=== PATIENT | female | born 1970 | race Caucasian/White ===

== ENCOUNTER → 2017-01-01 | Outpatient (CLI) | payer MEDICAID | LOC: M OUTALCOH 07:51 | PROVIDERS: ATTEND Psychiatry & Neurology Psychiatry | DX: Z13.9 Encounter for screening, unspecified (principal); F19.10 Other psychoactive substance abuse, uncomplicated ==

== ENCOUNTER → 2017-01-06 | Outpatient (RCR) | payer MEDICAID | LOC: M OUTALCOH 14:43 | PROVIDERS: ATTEND Psychiatry & Neurology Psychiatry | DX: F10.20 Alcohol dependence, uncomplicated (principal); F11.20 Opioid dependence, uncomplicated ==

== ENCOUNTER 2017-01-21 22:51 | Emergency (ER) | payer MEDICAID, OTHER ==
[~2017-01-21] VITALS: Ht 160 cm; Wt 68.2 kg
[2017-01-21] MEDS ORDERED: FLUC10TA PO (23:29)
[2017-01-21] MEDS ORDERED: TRAZ10TA GT (23:29)
[2017-01-21] MEDS ORDERED: NYST10CR EXT (23:29)
[2017-01-21] MEDS ORDERED: CELE20TA PO (23:29)
[2017-01-21] MEDS ORDERED: GABA-283 PO (23:29)
[2017-01-22] MEDS ORDERED: methylPREDNISolone INJ 125 MG/2 ML VIAL (J2930) IM ONE (05:45)
[2017-01-22] MEDS ORDERED: TRIAMCINOLONE ACET 0.1% CREAM 80 GM TOP ONE ×2 (05:45)
[2017-01-22] MEDS ORDERED: TRIAMCINOLONE ACET 0.1% CREAM 15 GM TOP ONE (05:45)
[2017-01-22] MEDS ORDERED: FLAG500T PO (06:44)
[2017-01-22] MEDS ORDERED: TRIA1CR80 TOP (06:47)
[2017-01-22 06:57] VITALS: BP 117/65
== END 2017-01-22 07:00 | disposition home or self-care (01) ==
LOC: M ED 23:50
DX: N76.2 Acute vulvitis (principal); N76.0 Acute vaginitis; F17.200 Nicotine dependence, unspecified, uncomplicated; Z90.79 Acquired absence of other genital organ(s); Z90.49 Acquired absence of other specified parts of digestive tract; Z79.899 Other long term (current) drug therapy; Z87.42 Personal history of other diseases of the female genital tract

== ENCOUNTER → 2017-02-05 | Outpatient (RCR) | payer MEDICAID ==
[~2017-02-05] MED LIST: CELE20TA PO; FLAG500T PO; FLUC10TA PO; GABA-283 PO; NYST10CR EXT; TRAZ10TA GT; TRIA1CR80 TOP
== END ==
LOC: M OUTALCOH 01-13 10:24
PROVIDERS: ATTEND Psychiatry & Neurology Psychiatry
DX: F10.20 Alcohol dependence, uncomplicated (principal); F11.20 Opioid dependence, uncomplicated

== ENCOUNTER → 2017-03-08 | Outpatient (RCR) | payer MEDICAID | LOC: M OUTALCOH 02-08 09:37 | PROVIDERS: ATTEND Psychiatry & Neurology Psychiatry | DX: F10.20 Alcohol dependence, uncomplicated (principal); F11.20 Opioid dependence, uncomplicated ==

== ENCOUNTER 2017-04-07 14:47 | Outpatient (RCR) | payer MEDICAID | END 2017-04-08 | LOC: M OUTALCOH 14:47 | PROVIDERS: ATTEND Psychiatry & Neurology Psychiatry | DX: F10.20 Alcohol dependence, uncomplicated (principal); F11.20 Opioid dependence, uncomplicated ==

== ENCOUNTER 2017-05-06 14:00 | Outpatient (RCR) | payer MEDICAID | END 2017-05-08 | LOC: M OUTALCOH 14:00 | PROVIDERS: ATTEND Psychiatry & Neurology Psychiatry | DX: F11.20 Opioid dependence, uncomplicated (principal); F10.20 Alcohol dependence, uncomplicated ==

== ENCOUNTER → 2017-06-21 | Outpatient (CLI) | payer OTHER ==
[2017-06-21 10:19] LABS: BASO % 0.5 % (0.0-1.0); EOS # 0.1 10^3/uL (0.0-0.50); EOS % 0.7 % (0.0-3.0); IMMATURE GRANULOCYTE % 0.3 % (0-0); LYMPH % 27.2 % (24.0-44.0); MEAN CORPUSCULAR HEMOGLOBIN 32.4 pg (27.0-33.0); MEAN CORPUSCULAR VOLUME 95.3 fl (80.0-96.0); MONO # 0.8 10^3/uL (0.0-0.8); MONO % 10.9 % (0.0-5.0); NEUTROPHILS # 4.5 10^3/uL (1.8-7.7); NEUTROPHILS % 60.4 % (36.0-66.0); PLATELET COUNT, AUTOMATED 234 10^3/uL (150-450); RED CELL DISTRIBUTION WIDTH 12.5 % (11.5-14.5); WHITE BLOOD COUNT 7.5 10^3/uL (4.0-10.0)
[2017-06-21 10:50] LABS: ALBUMIN 3.4 GM/DL (3.2-5.2); ALKALINE PHOSPHATASE 76 U/L (45-117); ALT/SGPT 188 U/L (12-78); ANION GAP 6 MEQ/L (8-16); AST/SGOT 70 U/L (7-37); BILIRUBIN,TOTAL 0.4 MG/DL (0.2-1.0); BLOOD UREA NITROGEN 11 MG/DL (7-18); CALCIUM LEVEL 8.7 MG/DL (8.5-10.1); CARBON DIOXIDE LEVEL 27 MEQ/L (21-32); CHLORIDE LEVEL 106 MEQ/L (98-107); CREATININE FOR GFR 0.43 MG/DL (0.55-1.02); GLOMERULAR FILTRATION RATE > 60.0 (>58); GLUCOSE, FASTING 93 MG/DL (70-105); POTASSIUM SERUM 4.4 MEQ/L (3.5-5.1); SODIUM LEVEL 139 MEQ/L (136-145); TOTAL PROTEIN 6.5 GM/DL (6.4-8.2)
== END ==
LOC: M LAB 09:45
PROVIDERS: ATTEND Nurse Practitioner Adult Health
DX: M54.31 Sciatica, right side (principal); F32.9 Major depressive disorder, single episode, unspecified; M51.9 Unspecified thoracic, thoracolumbar and lumbosacral intervertebral disc disorder; F11.20 Opioid dependence, uncomplicated

== ENCOUNTER → 2017-09-24 | Outpatient (REF) | payer OTHER | LOC: M LAB REF 14:43 | DX: R19.7 Diarrhea, unspecified (principal) ==

== ENCOUNTER → 2017-09-26 | Outpatient (REF) | payer OTHER | LOC: M LAB REF 09:13 | DX: J11.1 Influenza due to unidentified influenza virus with other respiratory manifestations (principal) | CPT/HCPCS: 87633 ==

== ENCOUNTER → 2017-10-20 | Outpatient (REF) | payer OTHER, MEDICAID ==
[2017-10-20 18:16] LABS: APPEARANCE, URINE CLEAR (CLEAR); BACTERIA, URINE AUTO 1+ (NEGATIVE); BILIRUBIN, URINE AUTO NEGATIVE (NEGATIVE); BLOOD, URINE BLOOD NEGATIVE (NEGATIVE); COLOR, URINE YELLOW (YELLOW); GLUCOSE, URINE (UA) AUTO NEGATIVE (NEGATIVE); KETONE, URINE AUTO NEGATIVE (NEGATIVE); LEUKOCYTE ESTERASE, URINE AUTO NEGATIVE (NEGATIVE); NITRITE, URINE AUTO NEGATIVE (NEGATIVE); PROTEIN, URINE AUTO NEGATIVE (NEGATIVE); RBC, URINE AUTO 0 /HPF (0-3); SPECIFIC GRAVITY URINE AUTO 1.008 (1.002-1.035); SQUAMOUS EPITHELIAL CELL UR AU 1 /HPF (0-6); UROBILINOGEN, URINE AUTO 0.2 mg/dL (0.0-2.0); WBC, URINE AUTO 0 /HPF (0-3)
== END ==
LOC: M SMT 17:03
DX: R35.0 Frequency of micturition (principal)
CPT/HCPCS: 81001

== ENCOUNTER → 2017-10-22 | Outpatient (REF) | payer OTHER, MEDICAID | LOC: M SMT 12:35 | DX: R35.0 Frequency of micturition (principal) | CPT/HCPCS: 87086 ==

== ENCOUNTER → 2017-11-12 | Outpatient (CLI) | payer MEDICAID | LOC: M PAIN 12:30 | DX: M46.1 Sacroiliitis, not elsewhere classified (principal); G89.29 Other chronic pain; M54.16 Radiculopathy, lumbar region; F10.21 Alcohol dependence, in remission; R51 Headache; G47.00 Insomnia, unspecified; F31.9 Bipolar disorder, unspecified; F41.9 Anxiety disorder, unspecified; Z79.899 Other long term (current) drug therapy; Z86.59 Personal history of other mental and behavioral disorders; Z87.891 Personal history of nicotine dependence | CPT/HCPCS: G0463 ==

== ENCOUNTER → 2017-11-23 | Outpatient (CLI) | payer MEDICAID | LOC: M EKG 09:20 | DX: F30.10 Manic episode without psychotic symptoms, unspecified (principal) | CPT/HCPCS: 93005 ==

== ENCOUNTER → 2017-12-28 | Outpatient (CLI) | payer MEDICAID | LOC: M PAIN 15:30 | DX: G89.29 Other chronic pain (principal); M51.16 Intervertebral disc disorders with radiculopathy, lumbar region; M54.5 Low back pain; M53.3 Sacrococcygeal disorders, not elsewhere classified; G47.00 Insomnia, unspecified; F31.9 Bipolar disorder, unspecified; F41.9 Anxiety disorder, unspecified; R51 Headache; Z79.899 Other long term (current) drug therapy; Z87.891 Personal history of nicotine dependence | CPT/HCPCS: G0463 ==

== ENCOUNTER → 2018-01-19 | Outpatient (CLI) | payer OTHER, MEDICAID | LOC: M PAIN 14:15 | DX: M51.16 Intervertebral disc disorders with radiculopathy, lumbar region (principal); M54.5 Low back pain; M53.3 Sacrococcygeal disorders, not elsewhere classified; F41.9 Anxiety disorder, unspecified; F32.9 Major depressive disorder, single episode, unspecified; R35.0 Frequency of micturition; Z79.899 Other long term (current) drug therapy; Z87.891 Personal history of nicotine dependence | CPT/HCPCS: G0463 ==

== ENCOUNTER → 2018-02-21 | Outpatient (REF) ==
[2018-02-23 08:58] LABS: RUBELLA IgG QUALITATIVE IMMUNE (IMMUNE)
[2018-02-23 12:01] LABS: RUBEOLA IgG ANTIBODY >300.0 AU/mL (Immune >29.9)
== END ==
LOC: M LAB 15:13
DX: Z02.89 Encounter for other administrative examinations (principal)

== ENCOUNTER → 2018-04-12 | Outpatient (CLI) | payer OTHER, MEDICAID | LOC: M PAIN 13:30 | DX: M51.16 Intervertebral disc disorders with radiculopathy, lumbar region (principal); M54.5 Low back pain; F10.21 Alcohol dependence, in remission; G47.00 Insomnia, unspecified; F31.9 Bipolar disorder, unspecified; F41.9 Anxiety disorder, unspecified; Z79.899 Other long term (current) drug therapy; Z86.59 Personal history of other mental and behavioral disorders; Z87.891 Personal history of nicotine dependence | CPT/HCPCS: G0463 ==

== ENCOUNTER → 2018-04-27 | Outpatient (CLI) | payer MEDICAID, OTHER ==
[2018-04-27 12:17] LABS: HEMATOCRIT 36.5 % (36.0-47.0); HEMOGLOBIN 12.7 g/dl (12.0-15.5); MEAN CORPUSCULAR HGB CONC 34.8 g/dl (32.0-36.5); MEAN CORPUSCULAR VOLUME 91.9 fl (80.0-96.0); PLATELET COUNT, AUTOMATED 228 10^3/uL (150-450); RED BLOOD COUNT 3.97 10^6/uL (4.00-5.40); RED CELL DISTRIBUTION WIDTH 12.4 % (11.5-14.5); WHITE BLOOD COUNT 6.1 10^3/uL (4.0-10.0)
[2018-04-27 13:24] LABS: ALBUMIN 3.8 GM/DL (3.2-5.2); ALBUMIN/GLOBULIN RATIO 1.36 (1.00-1.93); ALKALINE PHOSPHATASE 53 U/L (45-117); ALT/SGPT 22 U/L (12-78); ANION GAP 7 MEQ/L (8-16); AST/SGOT 12 U/L (7-37); BILIRUBIN,TOTAL 0.2 MG/DL (0.2-1.0); BLOOD UREA NITROGEN 13 MG/DL (7-18); CARBON DIOXIDE LEVEL 23 MEQ/L (21-32); CHLORIDE LEVEL 112 MEQ/L (98-107); CREATININE FOR GFR 0.55 MG/DL (0.55-1.30); GLOMERULAR FILTRATION RATE > 60.0 (>58); GLUCOSE, FASTING 80 MG/DL (70-100); POTASSIUM SERUM 4.1 MEQ/L (3.5-5.1); SODIUM LEVEL 142 MEQ/L (136-145); TOTAL PROTEIN 6.6 GM/DL (6.4-8.2)
== END ==
LOC: M LAB 11:22
DX: F32.89 Other specified depressive episodes (principal)
CPT/HCPCS: 80053

== ENCOUNTER → 2019-01-06 | Outpatient (REF) | payer OTHER, MEDICAID ==
[~2019-01-06] MED LIST changes: -GABA-283 PO; +GABA-845 PO
[2019-01-06 18:42] LABS: BASO % 0.5 % (0.0-1.0); EOS % 0.5 % (0.0-3.0); HEMATOCRIT 40.3 % (36.0-47.0); HEMOGLOBIN 13.7 g/dl (12.0-15.5); LYMPH # 1.6 10^3/uL (1.5-4.5); LYMPH % 27.5 % (24.0-44.0); MEAN CORPUSCULAR HEMOGLOBIN 32.2 pg (27.0-33.0); MEAN CORPUSCULAR VOLUME 94.8 fl (80.0-96.0); MONO # 0.4 10^3/uL (0.0-0.8); MONO % 7.8 % (0.0-5.0); NEUTROPHILS # 3.6 10^3/uL (1.8-7.7); NEUTROPHILS % 63.5 % (36.0-66.0); PLATELET COUNT, AUTOMATED 232 10^3/uL (150-450); RED BLOOD COUNT 4.25 10^6/uL (4.00-5.40); WHITE BLOOD COUNT 5.6 10^3/uL (4.0-10.0)
[2019-01-06 19:00] LABS: ALBUMIN 3.4 GM/DL (3.2-5.2); ALT/SGPT 60 U/L (12-78); BILIRUBIN,TOTAL 0.3 MG/DL (0.2-1.0); BLOOD UREA NITROGEN 10 MG/DL (7-18); CALCIUM LEVEL 8.9 MG/DL (8.5-10.1); CARBON DIOXIDE LEVEL 22 MEQ/L (21-32); CHLORIDE LEVEL 108 MEQ/L (98-107); CHOLESTEROL LEVEL 265 MG/DL (<200); CHOLESTEROL RISK RATIO 4.568 (<5); CREATININE FOR GFR 0.75 MG/DL (0.55-1.30); FREE T4 0.84 NG/DL (0.76-1.46); GLOMERULAR FILTRATION RATE > 60.0 (>58); GLUCOSE, FASTING 80 MG/DL (70-100); HDL CHOLESTEROL 58 MG/DL (>40); LDL CHOLESTEROL 191 MG/DL (<100); NON-HDL-C 207 MG/DL; POTASSIUM SERUM 4.3 MEQ/L (3.5-5.1); SODIUM LEVEL 141 MEQ/L (136-145); TOTAL PROTEIN 6.3 GM/DL (6.4-8.2); TRIGLYCERIDES LEVEL 79 MG/DL (<150)
[2019-01-06 19:01] LABS: TOTAL 25(OH) VITAMIN D 21.2 NG/ML (30.0-100.0)
[2019-01-10 00:07] LABS: Lyme Disease IgG/IgM Antibodie <0.91 ISR (0.00-0.90); Lyme Disease IgM Ab Quantitati <0.80 index (0.00-0.79)
== END ==
LOC: M LAB REF 16:54
PROVIDERS: ATTEND Family Medicine
DX: Z13.228 Encounter for screening for other metabolic disorders (principal)

== ENCOUNTER → 2019-01-06 | Outpatient (REF) | payer OTHER, MEDICAID ==
[2019-01-06 18:52] LABS: APPEARANCE, URINE HAZY (CLEAR); BACTERIA, URINE AUTO NEGATIVE (NEGATIVE); BILIRUBIN, URINE AUTO NEGATIVE (NEGATIVE); BLOOD, URINE BLOOD NEGATIVE (NEGATIVE); CALCIUM OXALATE CRYSTALS SMALL; COLOR, URINE YELLOW (YELLOW); GLUCOSE, URINE (UA) AUTO NEGATIVE (NEGATIVE); KETONE, URINE AUTO NEGATIVE (NEGATIVE); LEUKOCYTE ESTERASE, URINE AUTO NEGATIVE (NEGATIVE); MUCUS, URINE SMALL (NEGATIVE); NITRITE, URINE AUTO NEGATIVE (NEGATIVE); PROTEIN, URINE AUTO NEGATIVE (NEGATIVE); RBC, URINE AUTO 0 /HPF (0-3); SPECIFIC GRAVITY URINE AUTO 1.013 (1.002-1.035); SQUAMOUS EPITHELIAL CELL UR AU 3 /HPF (0-6); UROBILINOGEN, URINE AUTO 0.2 mg/dL (0.0-2.0); WBC, URINE AUTO 1 /HPF (0-3)
== END ==
LOC: M LAB REF 17:06
PROVIDERS: ATTEND Family Medicine
DX: Z13.228 Encounter for screening for other metabolic disorders (principal)

== ENCOUNTER → 2019-01-13 | Outpatient (REF) | payer OTHER, MEDICAID ==
[2019-01-13 21:09] LABS: CHLAMYDIA DNA AMPLIFICATION NEGATIVE (NEGATIVE); GC DNA AMPLIFICATION NEGATIVE (NEGATIVE)
== END ==
LOC: M LAB REF 17:01
PROVIDERS: ATTEND Family Medicine
DX: N76.0 Acute vaginitis (principal)

== ENCOUNTER → 2019-04-13 | Outpatient (REF) | payer OTHER, MEDICAID ==
[~2019-04-13] MED LIST changes: -TRAZ10TA GT; +TRAZ1TAB12 GT
[2019-04-13 13:49] LABS: ALT/SGPT 17 U/L (12-78); BILIRUBIN,TOTAL 0.2 MG/DL (0.2-1.0); BLOOD UREA NITROGEN 5 MG/DL (7-18); CALCIUM LEVEL 8.7 MG/DL (8.5-10.1); CARBON DIOXIDE LEVEL 24 MEQ/L (21-32); CHLORIDE LEVEL 109 MEQ/L (98-107); CHOLESTEROL LEVEL 187 MG/DL (<200); CHOLESTEROL RISK RATIO 3.596 (<5); CREATININE FOR GFR 0.78 MG/DL (0.55-1.30); GLOMERULAR FILTRATION RATE > 60.0 (>58); GLUCOSE, FASTING 121 MG/DL (70-100); HDL CHOLESTEROL 52 MG/DL (>40); LDL CHOLESTEROL 118 MG/DL (<100); NON-HDL-C 135 MG/DL; POTASSIUM SERUM 3.4 MEQ/L (3.5-5.1); SODIUM LEVEL 141 MEQ/L (136-145); TOTAL PROTEIN 5.9 GM/DL (6.4-8.2); TRIGLYCERIDES LEVEL 87 MG/DL (<150)
== END ==
LOC: M LAB REF 13:13
PROVIDERS: ATTEND Family Medicine
DX: E78.5 Hyperlipidemia, unspecified (principal)

== ENCOUNTER → 2019-09-28 | Outpatient (REF) | payer OTHER, MEDICAID ==
[2019-09-28 16:35] LABS: BASO % 0.4 % (0.0-1.0); EOS # 0.1 10^3/uL (0.0-0.5); HEMATOCRIT 42.9 % (36.0-47.0); HEMOGLOBIN 14.4 g/dl (12.0-15.5); LYMPH # 3.1 10^3/uL (1.5-5.0); LYMPH % 33.5 % (24.0-44.0); MEAN CORPUSCULAR HGB CONC 33.6 g/dl (32.0-36.5); MEAN CORPUSCULAR VOLUME 95.3 fl (80.0-96.0); MONO # 0.7 10^3/uL (0.0-0.8); MONO % 7.6 % (0.0-5.0); NEUTROPHILS # 5.4 10^3/uL (1.5-8.5); NEUTROPHILS % 57.2 % (36.0-66.0); PLATELET COUNT, AUTOMATED 254 10^3/uL (150-450); WHITE BLOOD COUNT 9.4 10^3/uL (4.0-10.0)
[2019-09-28 16:43] LABS: APPEARANCE, URINE CLOUDY (CLEAR); BACTERIA, URINE AUTO NEGATIVE (NEGATIVE); BILIRUBIN, URINE AUTO NEGATIVE (NEGATIVE); BLOOD, URINE BLOOD NEGATIVE (NEGATIVE); COLOR, URINE YELLOW (YELLOW); GLUCOSE, URINE (UA) AUTO NEGATIVE (NEGATIVE); KETONE, URINE AUTO NEGATIVE (NEGATIVE); LEUKOCYTE ESTERASE, URINE AUTO NEGATIVE (NEGATIVE); MUCUS, URINE SMALL (NEGATIVE); NITRITE, URINE AUTO NEGATIVE (NEGATIVE); PROTEIN, URINE AUTO NEGATIVE (NEGATIVE); RBC, URINE AUTO 1 /HPF (0-3); SPECIFIC GRAVITY URINE AUTO 1.019 (1.002-1.035); SQUAMOUS EPITHELIAL CELL UR AU 20 /HPF (0-6); UROBILINOGEN, URINE AUTO 0.2 mg/dL (0.0-2.0); WBC, URINE AUTO 1 /HPF (0-3)
[2019-09-28 16:56] LABS: ALBUMIN 3.6 GM/DL (3.2-5.2); ALT/SGPT 117 U/L (12-78); BILIRUBIN,TOTAL 0.3 MG/DL (0.2-1.0); BLOOD UREA NITROGEN 9 MG/DL (7-18); CALCIUM LEVEL 9.5 MG/DL (8.5-10.1); CARBON DIOXIDE LEVEL 26 MEQ/L (21-32); CHLORIDE LEVEL 109 MEQ/L (98-107); CHOLESTEROL LEVEL 290 MG/DL (<200); CREATININE FOR GFR 0.62 MG/DL (0.55-1.30); FOLATE 11.7 NG/ML; FOLLICLE STIMULATING HORMONE 37.5 mIU/mL; GLOMERULAR FILTRATION RATE > 60.0 (>58); GLUCOSE, FASTING 86 MG/DL (70-100); HDL CHOLESTEROL 50 MG/DL (>40); LDL CHOLESTEROL 199 MG/DL (<100); LUTEINIZING HORMONE 26.9 mIU/mL; NON-HDL-C 240 MG/DL; POTASSIUM SERUM 4.3 MEQ/L (3.5-5.1); PROLACTIN 15.5 NG/ML; SODIUM LEVEL 139 MEQ/L (136-145); TOTAL 25(OH) VITAMIN D 24.6 NG/ML (30.0-100.0); TOTAL PROTEIN 6.9 GM/DL (6.4-8.2); TRIGLYCERIDES LEVEL 207 MG/DL (<150); VITAMIN B12 LEVEL 602 PG/ML
[2019-09-28 16:58] LABS: ESTRADIOL 100.3 PG/ML
== END ==
LOC: M SFHCCAPE 07:35
PROVIDERS: ATTEND Physician Assistant
DX: Z13.6 Encounter for screening for cardiovascular disorders (principal); R23.2 Flushing; F39 Unspecified mood [affective] disorder

== ENCOUNTER → 2019-10-25 | Outpatient (REF) | payer OTHER, MEDICAID ==
[2019-10-25 17:17] LABS: ALBUMIN 3.7 GM/DL (3.2-5.2); ALT/SGPT 23 U/L (12-78); BILIRUBIN,DIRECT < 0.1 MG/DL (0.0-0.2); BILIRUBIN,TOTAL 0.2 MG/DL (0.2-1.0); BLOOD UREA NITROGEN 6 MG/DL (7-18); CALCIUM LEVEL 9.1 MG/DL (8.5-10.1); CARBON DIOXIDE LEVEL 24 MEQ/L (21-32); CHLORIDE LEVEL 110 MEQ/L (98-107); CREATININE FOR GFR 0.57 MG/DL (0.55-1.30); GLOMERULAR FILTRATION RATE > 60.0 (>58); GLUCOSE, FASTING 91 MG/DL (70-100); POTASSIUM SERUM 4.2 MEQ/L (3.5-5.1); SODIUM LEVEL 141 MEQ/L (136-145); TOTAL PROTEIN 6.7 GM/DL (6.4-8.2)
== END ==
LOC: M SFHCCAPE 10:56
PROVIDERS: ATTEND Physician Assistant
DX: R79.89 Other specified abnormal findings of blood chemistry (principal); R74.8 Abnormal levels of other serum enzymes

== ENCOUNTER → 2019-12-01 | Outpatient (REF) | payer OTHER, MEDICAID ==
[2019-12-01 17:41] LABS: APPEARANCE, URINE CLEAR (CLEAR); BACTERIA, URINE AUTO NEGATIVE (NEGATIVE); BILIRUBIN, URINE AUTO NEGATIVE (NEGATIVE); BLOOD, URINE BLOOD NEGATIVE (NEGATIVE); COLOR, URINE STRAW (YELLOW); GLUCOSE, URINE (UA) AUTO NEGATIVE (NEGATIVE); KETONE, URINE AUTO NEGATIVE (NEGATIVE); LEUKOCYTE ESTERASE, URINE AUTO NEGATIVE (NEGATIVE); NITRITE, URINE AUTO NEGATIVE (NEGATIVE); PROTEIN, URINE AUTO NEGATIVE (NEGATIVE); RBC, URINE AUTO 0 /HPF (0-3); SPECIFIC GRAVITY URINE AUTO 1.001 (1.002-1.035); SQUAMOUS EPITHELIAL CELL UR AU 0 /HPF (0-6); UROBILINOGEN, URINE AUTO 0.2 mg/dL (0.0-2.0); WBC, URINE AUTO 0 /HPF (0-3)
== END ==
LOC: M SMT 16:56
PROVIDERS: ATTEND Nurse Practitioner Women's Health
DX: N32.81 Overactive bladder (principal)

== ENCOUNTER → 2019-12-11 | Outpatient (REF) | payer OTHER, MEDICAID ==
[2019-12-11 13:40] LABS: ALBUMIN 3.5 GM/DL (3.2-5.2); ALT/SGPT 24 U/L (12-78); BILIRUBIN,TOTAL 0.3 MG/DL (0.2-1.0); BLOOD UREA NITROGEN 7 MG/DL (7-18); CALCIUM LEVEL 9.4 MG/DL (8.5-10.1); CARBON DIOXIDE LEVEL 26 MEQ/L (21-32); CHLORIDE LEVEL 109 MEQ/L (98-107); CHOLESTEROL LEVEL 221 MG/DL (<200); CHOLESTEROL RISK RATIO 3.877 (<5); CREATININE FOR GFR 0.58 MG/DL (0.55-1.30); FREE T4 0.99 NG/DL (0.76-1.46); GLOMERULAR FILTRATION RATE > 60.0 (>58); GLUCOSE, FASTING 86 MG/DL (70-100); HDL CHOLESTEROL 57 MG/DL (>40); LDL CHOLESTEROL 140 MG/DL (<100); NON-HDL-C 164 MG/DL; POTASSIUM SERUM 3.9 MEQ/L (3.5-5.1); SODIUM LEVEL 141 MEQ/L (136-145); THYROID PEROXIDASE ANTIBODY < 28.0 U/ML (<60.0); TOTAL 25(OH) VITAMIN D 34.7 NG/ML (30.0-100.0); TOTAL PROTEIN 6.7 GM/DL (6.4-8.2); TRIGLYCERIDES LEVEL 120 MG/DL (<150)
== END ==
LOC: M SFHCCLAY 09:07
PROVIDERS: ATTEND Physician Assistant
DX: E78.2 Mixed hyperlipidemia (principal); E03.9 Hypothyroidism, unspecified; E55.9 Vitamin D deficiency, unspecified

== ENCOUNTER → 2020-02-05 | Outpatient (CLI) | payer OTHER ==
--- NOTE | 2020-02-05 12:53 | REP ---
DIGITAL DIAGNOSTIC BILATERAL MAMMOGRAPHY WITH CAD, 3D TOMOGRAPHY, AND FOCUSED LEFT BREAST SONOGRAPHY: HISTORY: Painful lump in the left breast times 3 months. Comparison mammography, May 19, 2016. MAMMOGRAPHIC FINDINGS: A skin marker is affixed to the skin at the site of the palpable lump. Routine views of the left breast are augmented by magnified focal spot compression images. [facility]: B. There are scattered fibroglandular elements bilaterally. There is a 2.6 cm, irregular slightly spiculated mass at the site of the palpable lump in the posterior third upper medial quadrant, left breast. This is mammographically suspicious. Anterior to this, in the same superior medial quadrant, there is an area of nodularity and architectural distortion which is also suspicious. These may be satellite nodules. Overall, the anteroposterior dimension of the abnormal area measures up to 7.4 cm in anteroposterior dimension. These findings are unchanged from comparison study. The remainder of the left breast of the right breast are otherwise mammographically unremarkable. 3D tomography shows no additional findings. SONOGRAPHIC FINDINGS: The superior medial quadrant of the left breast is examined sonographically. At 11-o'clock position 5 cm from the nipple, there is a hypoechoic mass measuring 2.1 x 1.7 x 2.0 cm in sonographic dimensions. It is wider than tall but irregular and somewhat spiculated in its appearance. It is considered sonographically suspicious. Scanning anterior to this shows no additional sonographic abnormality. IMPRESSION: BIRADS 5: BI-RADS/ACR category 5 mammogram. Highly Suggestive of Malignancy - appropriate action should be taken. BI-RADS category 5 highly suspicious left breast imaging. The palpable lump corresponds to a 2.6 cm mass visible mammographically in the superomedial quadrant of the left breast. Anterior to this, there is an area of nodularity and architectural distortion which is also suspicious. Histologic sampling of these areas is recommended. The mass can be sampled sonographically with marker clip placement and post clip placement mammography. This mammogram was interpreted with the aid of an FDA-approved computer-aided detection system. The patient states she had a clinical breast exam in January 2020. The patient letter being requested is M#4. This patient's estimated [facility] lifetime risk assessment for breast cancer is 10.8%. Electronically Signed by Fernando Carter MD 02/05/2020 02:45 P
== END ==
LOC: M WHC 10:31
PROVIDERS: ATTEND Specialist
DX: R92.8 Other abnormal and inconclusive findings on diagnostic imaging of breast (principal); N63.22 Unspecified lump in the left breast, upper inner quadrant
CPT/HCPCS: 76642; 77066; G0279

== ENCOUNTER → 2020-02-07 | Outpatient (CLI) | payer OTHER ==
[~2020-02-07] MED LIST changes: +ACYC400T PO; +ANUS2.5C2 TOP; +AUGM875T28 PO; +BACL10TA2 PO; +CHOL400T PO; +CLAR10CA3 PO; +EFFE37.5 PO; +FISH1000 PO; +GLUCTAB6 PO; +HYDR-3363 PO; +LIDO2SOL17 PO; +LOMO2.5T PO; +LYRI75CA PO; +MAGICMW SSP; +MULT1TAB8 PO; +NYST1POW9 TOP; +OXYB5TAB10 PO; +PREG100C PO; +PROAAER10 INH; +TOPA50TA8 PO
[2020-02-07 16:38] VITALS: BP 124/84
--- NOTE | 2020-02-07 16:52 | REP ---
LEFT BREAST ULTRASOUND: FOCUSED EXAM. HISTORY: Palpable abnormality 4-o'clock position. FINDINGS: Sonographic scanning of the left breast in the 4-o'clock position 3 cm from the nipple in the area abnormal on clinician breast exam shows heterogeneous breast parenchyma. No cyst or mass is seen. No acoustic shadowing is observed. IMPRESSION:BI-RADS category 1 negative left breast sonographic findings. Clinical follow-up is advised.
--- NOTE | 2020-02-07 16:54 | REP ---
LEFT AXILLARY ULTRASOUND: HISTORY: Left axillary pain. Possible left breast malignancy. FINDINGS: Left axillary scanning is performed. Two left axillary lymph nodes are seen measured as follows: 2.9 x 1.0 x 0.9 and 0.7 x 0.7 x 0.7 cm. These show hyperechoic central hilar fat and hypoechoic cortical tissue. There is no nodularity or mass effect. IMPRESSION: BI-RADS category 2 benign-appearing left axillary lymph nodes.
--- NOTE | 2020-02-07 16:55 | REP ---
FOCUSED LEFT BREAST SONOGRAPHY: HISTORY: Left breast mass. Guidance for needle biopsy procedure. FINDINGS: Sonographic guidance is provided to Dr. Ramirez, who performed ultrasound-guided needle biopsy procedure of the left breast mass with HydroMARK clip placement.
--- NOTE | 2020-02-07 16:56 | REP ---
DIGITAL DIAGNOSTIC UNILATERAL LEFT BREAST MAMMOGRAPHY WITH CAD: THREE VIEWS. HISTORY: Marker clip placement views. Post biopsy. Superomedial quadrant left breast mass on mammography February 05, 2020. FINDINGS: Craniocaudal, medially exaggerated craniocaudal, and true mediolateral views demonstrate the needle biopsy marker clip along the anterior and inferior margin of the irregular spiculated mass in the superomedial quadrant of the left breast in good position. IMPRESSION: Marker clip in good position relative to the mammographically visible mass.
--- NOTE | 2020-02-17 23:52 | ROOPDOC ---
[facility] Report Of Operation Report of Operation DATE OF PROCEDURE: 02/07/20 PREPROCEDURE DIAGNOSES: Left breast mass POSTPROCEDURE DIAGNOSES: Left breast mass. PROCEDURE: Ultrasound-guided left breast mass biopsy with clip placement. SURGEON: Salo Gonzalez HUMAN SERVICES ASSISTANT: ANESTHESIA: Local anesthetic was used. ESTIMATED BLOOD LOSS: Approximately 1 mL. COMPLICATIONS: No complications. REMARKS: Postbiopsy clip seen in the spiculated mass seen previously on mammography. DESCRIPTION OF PROCEDURE: Lidocaine 1% LOT [id number] Expiration 12/2022 Sodium Bicarbonate 8.4% LOT [id number] Expiration 01/2021 Hydromark clip LOT [id number] Expiration 07/2022 SHAPE 3 Bx device: BARD [id number] x10 cm LOT [id number] Expiration 10/2022 Informed consent was obtained. The most common risk and possible complications including bleeding, hematoma, bruising, infection, injury to surrounding structures were explained to the patient and she expressed understanding. Patient was placed on the bed in the supine position. Appropriate time out was done stating patients name, date of , and the procedure to be performed. The left breast was prepped and draped in the usual fashion. The ultrasound was used to confirm the location of the lesion in the left upper inner quadrant of the breast at 11:00 5 centimeters from the nipple. Plain Lidocaine 1% and 8.4% sodium bicarbonate 10:1 mix was used to anesthetize the skin, the biopsy site and tissues along the anticipated biopsy tract. Small skin incision was made with blade number 11. BARD Marquee 14G cannula with introducer ([id number]) was inserted through the incision and advanced under the ultrasound guidance to position immediately adjacent to the lesion. Next, the introducer was removed and BARD Marquee 14G biopsy device was places in the cannula. Pre-biopsy imaging, and post-biopsy imaging were captured. Five good core biopsies were taken at various levels of the lesion. Specimen was placed in formaldehyde, labeled with appropriate biopsy site and patients name, and sent to pathology for evaluation. Next, the biopsy device was withdrawn and a clip introducer was inserted into the biopsy site via the cannula. The Hydromark SHAPE 3 clip was deployed under sonographic guidance. Post-clip placement image was captured. Manual pressure over the biopsy cavity and tract was held after the clip introducer was withdrawn. No bleeding was noted upon removal of the pressure. Post-biopsy mammogram of the left breast was obtained and showed clip in expected position. Postprocedural dressing was placed. Patient tolerated procedure well. Discharge instructions were discussed with the patient and she expressed understanding. SALO GONZALEZ DO Feb 17, 2020 23:52
== END ==
LOC: M WHCPRO 13:28
PROVIDERS: ATTEND Surgery
DX: C50.912 Malignant neoplasm of unspecified site of left female breast (principal)

== ENCOUNTER → 2020-02-14 | Outpatient (REF) | payer OTHER ==
[2020-02-14 15:23] LABS: BLOOD UREA NITROGEN 7 MG/DL (7-18); CALCIUM LEVEL 9.3 MG/DL (8.5-10.1); CARBON DIOXIDE LEVEL 25 MEQ/L (21-32); CHLORIDE LEVEL 112 MEQ/L (98-107); CREATININE FOR GFR 0.63 MG/DL (0.55-1.30); GLOMERULAR FILTRATION RATE > 60.0 (>58); GLUCOSE, FASTING 86 MG/DL (70-100); POTASSIUM SERUM 3.5 MEQ/L (3.5-5.1); SODIUM LEVEL 143 MEQ/L (136-145)
== END ==
LOC: M PLALAB 12:30
PROVIDERS: ATTEND Surgery
DX: C50.912 Malignant neoplasm of unspecified site of left female breast (principal)

== ENCOUNTER → 2020-02-23 | Outpatient (CLI) | payer OTHER ==
[~2020-02-23] MED LIST changes: +PROHANCE 279.3MG/ML 15ML VIAL As Ordered ONE
--- NOTE | 2020-02-26 10:53 | REP ---
BILATERAL BREAST MRI STUDY WITHOUT AND WITH IV GADOLINIUM: HISTORY: Left breast invasive ductal carcinoma. Comparison mammography is reviewed from February 05, 2020 with sonography from that same date of the left breast. On February 07, 2020 the patient underwent ultrasound-guided needle biopsy and HydroMARK clip placement procedure for left breast mass. Post clip placement mammography shows marker clip in good position along the inferior anterior aspect of the mass. TECHNIQUE: Three [place] MRI imaging was performed with a dedicated breast coil. Axial, coronal, and sagittal T1 and T2-weighted scans were obtained with and without fat saturation in the usual fashion. The study includes dynamically acquired post gadolinium enhanced imaging subtraction imaging. Maximal intensity projection and multiplanar re-formation imaging is included as well. The study was interpreted with the aid of [employer], an FDA approved computer-aided detection (CAD) software program, on a dedicated breast MRI work station. The gadolinium enhancement dose is 14 mL of intravenous ProHance. FINDINGS: There is no evidence of axillary or internal mammary adenopathy on either side. The right breast is unremarkable on pre- and postcontrast T1- and T2-weighted scans. T2 hyperintense HydroMARK device is seen along the anterior margin of a spiculated enhancing left breast mass in the superomedial quadrant consistent with the known carcinoma. This is 2.7 cm in diameter on MR imaging. There is some adjacent hypervascularity with prominent veins. The lesion is slightly T2 hyperintense. There is no evidence of chest wall or skin involvement. There is a peripherally enhancing 6 mm nodule along the posterior lateral margin of the mass which it is only 1 or 2 mm from the pectoralis muscle although there is a fat plane, which is intact. In addition, there is bulky suspicious linear and nodular enhancement in the left breast elsewhere extending anteriorly through the 12-o'clock region, anteriorly and medially in the 10-o'clock position, and inferiorly and laterally in the 4-o'clock to 5-o'clock position. There is asymmetric subareolar enhancement as well. Dynamically acquired post contrast images demonstrate heterogeneous mixed plateau, washout, and persistent enhancement patterns. The recently biopsied mass shows predominately plateau and washout kinetics with a central area of persistent enhancement. There is extensive suspicious disease in the left breast in multiple quadrant. IMPRESSION: BIRADS category 6 known left breast malignancy. There is a HydroMARK clip placement device adjacent to the biopsied mass. There is extensive spiculated nodular enhancing disease inferiorly and laterally as well as superiorly and medially and in the 12-o'clock position all on the left breast. There is some hypervascularity in the left breast. No skin or chest wall involvement is appreciated. The right breast is unremarkable. Electronically Signed by Fernando Carter MD 02/26/2020 12:49 P
== END ==
LOC: M RAD 14:23
PROVIDERS: ATTEND Surgery
DX: C50.912 Malignant neoplasm of unspecified site of left female breast (principal)
CPT/HCPCS: A9576; C8908

== ENCOUNTER → 2020-02-26 | Outpatient (CLI) | payer OTHER ==
[~2020-02-26] MED LIST changes: -PROHANCE 279.3MG/ML 15ML VIAL As Ordered ONE
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
== END ==
LOC: M PAIN 13:45
PROVIDERS: ATTEND Family Medicine
DX: C50.912 Malignant neoplasm of unspecified site of left female breast (principal)

== ENCOUNTER → 2020-02-27 | Outpatient (CLI) | payer OTHER ==
--- NOTE | 2020-02-29 08:32 | ECHO ---
DATE OF STUDY: 02/27/2020 REFERRING PHYSICIAN: Dr. Jin Elizabeth INDICATION: Chemotherapy drugs that may affect the heart. HEIGHT: 63 inches. WEIGHT: 155 pounds. 2-D MEASUREMENTS: Ventricular septum: 0.94 cm Posterior wall: 0.89 cm Left ventricle diastole: 3.9 cm Left atrium: 2.7 cm Aortic root: 2.9 cm Inferior vena cava: 0.8 cm (more than 50% respiratory variation) DOPPLER MEASUREMENTS: No aortic stenosis No aortic regurgitation No mitral stenosis No mitral regurgitation No tricuspid regurgitation No pulmonic regurgitation Aortic valve velocity: 118 cm/sec LVOT velocity: 73.1 cm/sec Mitral E velocity: 61.7 cm/sec Mitral A velocity: 78.4 cm/sec Mitral deceleration time: 227 ms Pulmonary artery acceleration time: 151 ms (suggestive of normal PA systolic pressure) MITRAL ANNULAR TISSUE DOPPLER: E prime septal: 7.4 cm/sec E prime lateral: 9.1 cm/sec DESCRIPTION: This was a 2-D, M-mode, color flow Doppler and pulse wave Doppler examination and included mitral annular tissue Doppler and peak longitudinal strain imaging. Rhythm was sinus. Image quality was good. CONCLUSIONS: 1. Normal left ventricle internal dimensions and wall thickness. Normal regional LV wall motion and wall thickening. Mild reduction in peak longitudinal strain over the basal anteroseptal region and normal elsewhere. Grade 1 LV diastolic dysfunction (impaired relaxation filling pattern). 2. Very small pericardial effusion. 3. Probable small left pleural effusion. 4. Otherwise normal appearing echocardiogram Doppler findings.
== END ==
LOC: M CARPUL 10:06
PROVIDERS: ATTEND Internal Medicine Hematology & Oncology
DX: C50.919 Malignant neoplasm of unspecified site of unspecified female breast (principal)

== ENCOUNTER → 2020-02-29 | Outpatient (CLI) | payer OTHER ==
[~2020-02-29] MED LIST changes: +LIDOCAINE 1% MDV 20ML VIAL As Ordered ONE; +MIDAZOLAM INJ 2MG/2ML VIAL (J2250 PER 1MG) As Ordered ONE; +PROMETHAZINE INJ 25 MG/ML VIAL (J2550) As Ordered ONE; +ceFAZolin 1GM VIAL (J0690 PER 500MG) As Ordered ONE; +diphenhydrAMINE 50MG/ML VIAL (J1200) As Ordered ONE; +fentaNYL 100 MCG/2 ML INJECTION (J3010) As Ordered ONE
--- NOTE | 2020-02-29 10:00 | IRHP ---
[facility] IR Pre-Procedure H & P General Date of Service: Feb 29, 2020 Procedure: Same Day Surgery Interval History and Physical I have seen the patient and reviewed last H & P performed within 30 days. There is no significant interval change. History of Present Illness Chief Complaint The patient is a 49-year-old female admitted with a reason for visit of Breast Ca. PRE-PROCEDURE DIAGNOSIS: left sided breast cancer HEART: normal rate LUNGS: normal breathing at rest. ASA Classification ASA Classification: II-Mild systemic disease Mallampati Score: II NPO: Yes Problems with prior sedation: No Obstructive Sleep Apnea: No Plan moderate sedation Allergies Coded Allergies: sulfamethoxazole (Verified Allergy, Mild, rash, 02/23/20) trimethoprim (Verified Allergy, Mild, rash, 02/23/20) varenicline (Verified Allergy, Unknown, 02/29/20) Home Medications Scheduled Baclofen (Baclofen), 10 MG PO TID, (Reported) Cholecalciferol (Vitamin D3) (Vitamin D3), 10 MCG PO DAILY, (Reported) Fluconazole (Diflucan), 1 TAB PO DAILY Gluc Estrada/Chondro Estrada A/Vit C/Mn (Glucosamine Chondroitin Tab), 1 TAB PO DAILY, (Reported) Loratadine (Claritin), 10 MG PO DAILY, (Reported) Multivitamin (Multi-Vitamin Daily), 1 TAB PO DAILY, (Reported) Oxybutynin Chloride (Oxybutynin Chloride), 5 MG PO BID, (Reported) Pregabalin (Lyrica), 75 MG PO BID, (Reported) Topiramate (Topamax), 50 MG PO BID, (Reported) Scheduled PRN Albuterol Sulfate (Proair Hfa), 2 PUFF INH Q4-6HP PRN for wheezing, (Reported) Discontinued Medications Citalopram Hydrobromide (Celexa), 20 MG PO, (Reported) Discontinued Reason: Pt states not taking Fluconazole (Diflucan), 100 MG PO, (Reported) Discontinued Reason: Pt states not taking Gabapentin (Gabapentin), 600 MG PO TID, (Reported) Discontinued Reason: Pt states not taking Metronidazole (Flagyl), 500 MG PO Q8H Discontinued Reason: Pt states not taking Nystatin (Nystatin), 1 UNIT EXT, (Reported) Discontinued Reason: Pt states not taking [place]-3 Fatty Acids/Fish Oil (Fish Oil 1,000 mg Capsule), 1 CAP PO DAILY, (Reported) Discontinued Reason: Pt states not taking Trazodone HCl (Trazodone HCl), 100 MG GT, (Reported) Discontinued Reason: Pt states not taking Triamcinolone Acet (Triamcinolone Acetonide 0.1% Crm), 0 TOP Q12H Discontinued Reason: Pt states not taking VS, I&O, 24H, Fishbone Vital Signs/I&O Vital Signs Date Time Temp Pulse Resp B/P (MAP) Pulse Ox O2 Delivery O2 Flow Rate FiO2 02/29/20 08:51 98.4 86 18 98 Room Air ANALI BRENNER MD Feb 29, 2020 10:00
[2020-02-29 11:46] VITALS: BP 118/80
--- NOTE | 2020-04-12 09:58 | POST-OPPD ---
Postoperative Procedure Note Date Of Procedure: Feb 29, 2020 Time Of Procedure: 09:45 Complete op note IR Ultrasound and fluoroscopy-guided port placement. IR Ultrasound of the neck. IR Moderate sedation. Clinical information: Breast cancer left side Physician: Dr. Flynn. Procedure: The patient was advised of the benefits, risks, and alternatives of the procedure and informed consent was obtained. A time-out was performed with verification of the patient's name, MRN, site of procedure and type of procedure to be performed. The patient was positioned in the supine position on the angiographic table. The site was prepped and draped in the usual sterile fashion. Moderate sedation was performed by the physician including the presence of an independent trained observer who assisted and monitored the patient's level of consciousness and physiologic status. Following the administration of fentanyl and Versed , the physician spent 45 minutes of continuous face to face time with the patient. Ultrasound of the neck reveals a patent and compressible right internal jugular vein. A coil placer radiograph reveals no gross abnormality. The neck and anterior chest wall were anesthetized with lidocaine. The right internal jugular vein was accessed using a microintroducer needle under ultrasound guidance, via a lateral approach. An 018 wire was advanced into the superior vena cava, the needle was removed and a microsheath was placed. An Amplatz wire was then passed into the inferior vena cava. An incision at the internal jugular vein access site and anterior chest wall were made using a scalpel. An incision was made at the anterior chest wall. A small pocket was created using a combination of blunt and sharp dissection. A tunneling device was then used to pass the catheter from the pocket to the neck puncture site. An 8- [place] [employer] Smart power port was then positioned in the pocket. The catheter was then measured and cut. The introducer sheath was exchanged for a peel-away sheath. The catheter was passed through the peel-away sheath into the internal jugular vein and the peel-away sheath was removed. The port tip was positioned at the cavoatrial junction. The port was then accessed with a Jackson needle. The port flushes and aspirates well. The puncture site in the neck was closed. The chest wall incision was then closed with 2-0 Vicryl and 4-0 Monocryl. Glue and Steri- Strips were applied. A sterile dressing was then applied. The patient tolerated the procedure well and was returned to the PRU in stable condition. Estimated blood loss: <5 ml. Complications: None. Conclusion: 1. Successful placement of an 8-[place] Smart power port via the right internal jugular vein. The port is ready for immediate use. 2. Patient to follow up in IR clinic in 2 weeks. Thank you for this referral. ANALI FLYNN MD Apr 12, 2020 09:58
== END ==
LOC: M IRPRO 08:37
PROVIDERS: ATTEND Internal Medicine Hematology & Oncology
DX: C50.912 Malignant neoplasm of unspecified site of left female breast (principal)
CPT/HCPCS: 36561; J0690; J1200; J1642; J1644; J2250; J3010

== ENCOUNTER → 2020-03-08 | Outpatient (CLI) | payer OTHER ==
[~2020-03-08] MED LIST changes: -LIDOCAINE 1% MDV 20ML VIAL As Ordered ONE; -MIDAZOLAM INJ 2MG/2ML VIAL (J2250 PER 1MG) As Ordered ONE; -PROMETHAZINE INJ 25 MG/ML VIAL (J2550) As Ordered ONE; -ceFAZolin 1GM VIAL (J0690 PER 500MG) As Ordered ONE; -diphenhydrAMINE 50MG/ML VIAL (J1200) As Ordered ONE; -fentaNYL 100 MCG/2 ML INJECTION (J3010) As Ordered ONE
[2020-04-25 18:57] LABS: ALBUMIN 3.8 GM/DL (3.2-5.2); ALT/SGPT 26 U/L (12-78); BILIRUBIN,TOTAL 0.3 MG/DL (0.2-1.0); BLOOD UREA NITROGEN 7 MG/DL (7-18); CALCIUM LEVEL 9.8 MG/DL (8.5-10.1); CARBON DIOXIDE LEVEL 22 MEQ/L (21-32); CHLORIDE LEVEL 114 MEQ/L (98-107); CREATININE FOR GFR 0.77 MG/DL (0.55-1.30); GLOMERULAR FILTRATION RATE > 60.0 (>58); GLUCOSE, FASTING 84 MG/DL (70-100); POTASSIUM SERUM 3.7 MEQ/L (3.5-5.1); SODIUM LEVEL 143 MEQ/L (136-145); TOTAL PROTEIN 7.5 GM/DL (6.4-8.2)
[2020-04-26 12:25] LABS: BASO % 0.5 % (0.0-1.0); EOS # 0.1 10^3/uL (0.0-0.5); EOS % 0.9 % (0.0-3.0); HEMATOCRIT 44.4 % (36.0-47.0); HEMOGLOBIN 14.9 g/dl (12.0-15.5); LYMPH # 2.5 10^3/uL (1.5-5.0); LYMPH % 29.2 % (24.0-44.0); MEAN CORPUSCULAR HEMOGLOBIN 31.1 pg (27.0-33.0); MEAN CORPUSCULAR HGB CONC 33.6 g/dl (32.0-36.5); MEAN CORPUSCULAR VOLUME 92.7 fl (80.0-96.0); MONO # 0.5 10^3/uL (0.0-0.8); MONO % 5.8 % (0.0-5.0); NEUTROPHILS # 5.5 10^3/uL (1.5-8.5); NEUTROPHILS % 63.1 % (36.0-66.0); PLATELET COUNT, AUTOMATED 235 10^3/uL (150-450); RED BLOOD COUNT 4.79 10^6/uL (4.00-5.40); WHITE BLOOD COUNT 8.7 10^3/uL (4.0-10.0)
== END ==
LOC: M LAB 12:34
PROVIDERS: ATTEND Internal Medicine Hematology & Oncology
DX: C50.919 Malignant neoplasm of unspecified site of unspecified female breast (principal)

== ENCOUNTER → 2020-03-18 | Outpatient (CLI) | payer OTHER ==
--- NOTE | 2020-05-03 10:33 | REP ---
WHOLE BODY BONE SCAN: HISTORY: Breast cancer. TECHNIQUE: Following the intravenous administration of 21.4 mCi of technetium- 99m MDP, patient's whole body is imaged in the anterior and posterior projections with additional oblique and lateral views obtained. FINDINGS: There is relatively homogeneous distribution of radiotracer throughout the axial and appendicular skeleton. No abnormal foci of uptake are seen. There is no compelling scintigraphic evidence of osseous metastasis. Renal and bladder activity are seen. IMPRESSION: No compelling scintigraphic evidence of osseous metastases. MTDD
== END ==
LOC: M RAD 08:20
PROVIDERS: ATTEND Internal Medicine Hematology & Oncology
DX: C50.919 Malignant neoplasm of unspecified site of unspecified female breast (principal)

== ENCOUNTER → 2020-03-19 | Outpatient (POV) | payer OTHER ==
--- NOTE | 2020-04-11 14:40 | IRPN ---
[facility] IR Progress Note IR Progress Note DATE: Mar 19, 2020 Patient agreed to this telephone follow-up. Duration of call 5 minutes. FOLLOW-UP: Status post port placement. No fevers, chills, pain at site or discharge reported. Port has been used without difficulty. ON EXAMINATION: Patient sent me pictures of the port site. Port site appears to be healing well. No redness, swelling or discharge. IMPRESSION: Doing well status post port placement. No further follow-up scheduled unless initiated by patient and/or referring provider. Thank you for this referral Allergies Coded Allergies: sulfamethoxazole (Verified Allergy, Mild, rash, 02/23/20) trimethoprim (Verified Allergy, Mild, rash, 02/23/20) varenicline (Verified Allergy, Unknown, 02/29/20) ANALI BRENNER MD Apr 11, 2020 14:40
== END ==
LOC: M TMIRPOV 09:30
PROVIDERS: ATTEND Radiology Diagnostic Radiology
DX: Z45.2 Encounter for adjustment and management of vascular access device (principal); Z88.1 Allergy status to other antibiotic agents; Z88.8 Allergy status to other drugs, medicaments and biological substances

== ENCOUNTER 2020-03-28 12:05 | Emergency (ER) | payer OTHER ==
[~2020-03-28] VITALS: Ht 160 cm; Wt 69.5 kg
[~2020-03-28 12:05] MED LIST changes: -ACYC400T PO; -ANUS2.5C2 TOP; -AUGM875T28 PO; -EFFE37.5 PO; -HYDR-3363 PO; -LIDO2SOL17 PO; -LOMO2.5T PO; -NYST1POW9 TOP; -PREG100C PO
[2020-03-28] MEDS ORDERED: PERCOCET 5MG/325MG TAB PO ONE (13:15)
[2020-03-28 13:21] LABS: BASO % 0.5 % (0.0-1.0); HEMATOCRIT 36.2 % (36.0-47.0); HEMOGLOBIN 12.4 g/dl (12.0-15.5); LYMPH # 1.9 10^3/uL (1.5-5.0); LYMPH % 43.7 % (24.0-44.0); MEAN CORPUSCULAR HEMOGLOBIN 31.8 pg (27.0-33.0); MEAN CORPUSCULAR HGB CONC 34.3 g/dl (32.0-36.5); MEAN CORPUSCULAR VOLUME 92.8 fl (80.0-96.0); MONO # 0.6 10^3/uL (0.0-0.8); MONO % 13.7 % (0.0-5.0); NEUTROPHILS # 1.8 10^3/uL (1.5-8.5); NEUTROPHILS % 40.7 % (36.0-66.0); PLATELET COUNT, AUTOMATED 378 10^3/uL (150-450); WHITE BLOOD COUNT 4.4 10^3/uL (4.0-10.0)
[2020-03-28 13:55] LABS: ALBUMIN 3.4 GM/DL (3.2-5.2); ALT/SGPT 56 U/L (12-78); BILIRUBIN,TOTAL 0.2 MG/DL (0.2-1.0); BLOOD UREA NITROGEN 4 MG/DL (7-18); CALCIUM LEVEL 9.2 MG/DL (8.5-10.1); CARBON DIOXIDE LEVEL 26 MEQ/L (21-32); CHLORIDE LEVEL 114 MEQ/L (98-107); CREATININE FOR GFR 0.72 MG/DL (0.55-1.30); GLOMERULAR FILTRATION RATE > 60.0 (>58); GLUCOSE, FASTING 110 MG/DL (70-100); POTASSIUM SERUM 3.9 MEQ/L (3.5-5.1); SODIUM LEVEL 142 MEQ/L (136-145); TOTAL PROTEIN 6.5 GM/DL (6.4-8.2)
[2020-03-28] MEDS ORDERED: ISOVUE-370 76% 100ML VIAL As Ordered ONE (14:19)
--- NOTE | 2020-03-28 14:52 | REPVR ---
PROCEDURE INFORMATION: Exam: CT Abdomen And Pelvis With Contrast Exam date and time: 03/28/2020 2:15 PM Age: 49 years old Clinical indication: Abdominal pain; Other: Rectal; Additional info: Rectal pain; R/O abscess TECHNIQUE: Imaging protocol: Computed tomography of the abdomen and pelvis with intravenous contrast. Radiation optimization: All CT scans at this facility use at least one of these dose optimization techniques: automated exposure control; mA and/or kV adjustment per patient size (includes targeted exams where dose is matched to clinical indication); or iterative reconstruction. Contrast material: ISOVUE 370; Contrast volume: 100 ml; Contrast route: INTRAVENOUS (IV); COMPARISON: No relevant prior studies available. FINDINGS: Lungs: Mild interstitial prominence. 2 and 6 mm left lower lobe nodules, and 4 mm pleural based right lower lobe nodule. For patients at low risk (minimal or absent history of smoking and of other known risk factors), no routine follow-up is indicated. For patients at high risk (history of smoking or of other known risk factors), consider optional CT Chest at 12 months. 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 Liver: Fatty infiltration of the liver. Gallbladder and bile ducts: Status post cholecystectomy. Pancreas: Mild pancreatic ductal dilatation without focal mass. Spleen: No splenomegaly. Adrenals: Subtle left adrenal nodularity. Kidneys and ureters: Normal renal morphology. No hydronephrosis. Stomach and bowel: Prominent stool and diverticula, without pericolonic inflammation. Mild gastric wall thickening. No significant small bowel dilatation. No perirectal abscess. Appendix: No acute appendicitis. Intraperitoneal space: No significant free fluid. Vasculature: Vascular calcification. Normal caliber of the abdominal aorta. Lymph nodes: Subcentimeter lymph nodes. Bladder: Normal bladder morphology. Reproductive: Status post hysterectomy. Bones/joints: Degenerative change and disc bulging. IMPRESSION: 1. Prominent stool and diverticula, without pericolonic inflammation. 2. No perirectal abscess. 3. Additional findings as described above. Electronically signed by: Walter Barragan On 03/28/2020 14:52:47 PM
[2020-03-28] MEDS ORDERED: AUGM875T28 PO (15:27)
[2020-03-28] MEDS ORDERED: LIDO2SOL17 PO (15:27)
[2020-03-28] MEDS ORDERED: ANUS2.5C2 TOP (15:27)
[2020-03-28 15:36] VITALS: BP 129/69
[2020-04-01] MEDS ORDERED: HYDR-3363 PO (11:00)
[2020-04-01] MEDS ORDERED: EFFE37.5 PO (11:11)
[2020-04-01] MEDS ORDERED: ACYC400T PO (11:26)
[2020-04-09] MEDS ORDERED: PREG100C PO (08:08)
[2020-04-09] MEDS ORDERED: LOMO2.5T PO (08:26)
[2020-04-09] MEDS ORDERED: NYST1POW9 TOP (08:33)
== END 2020-03-28 15:38 | disposition home or self-care (01) ==
LOC: M ED 12:05
DX: K62.89 Other specified diseases of anus and rectum (principal); C50.412 Malignant neoplasm of upper-outer quadrant of left female breast; R91.8 Other nonspecific abnormal finding of lung field; F33.9 Major depressive disorder, recurrent, unspecified; F41.9 Anxiety disorder, unspecified; F17.210 Nicotine dependence, cigarettes, uncomplicated; Z88.8 Allergy status to other drugs, medicaments and biological substances; Z88.2 Allergy status to sulfonamides; Z88.1 Allergy status to other antibiotic agents; Z79.899 Other long term (current) drug therapy
CPT/HCPCS: 36415; 74177; 80053; 85025; 86850; 86900; 86901; 87040; 99283; Q9967

== ENCOUNTER → 2020-04-01 | Outpatient (CLI) | payer OTHER ==
[~2020-04-01] MED LIST changes: +ACYC400T PO; +ANUS2.5C2 TOP; +AUGM875T28 PO; +EFFE37.5 PO; +HYDR-3363 PO; +LIDO2SOL17 PO; +LOMO2.5T PO; +NYST1POW9 TOP; +PREG100C PO
== END ==
LOC: M PAIN 13:58
PROVIDERS: ATTEND Family Medicine
DX: G62.9 Polyneuropathy, unspecified (principal)

== ENCOUNTER → 2020-05-06 | Outpatient (CLI) | payer OTHER ==
--- NOTE | 2020-05-16 09:14 | REP ---
PET CT HISTORY: Malignant neoplasm of the breast. COMPARISON: CT study of the chest 03/05/2020 showed a suspicious appearing mass in the left breast superomedial quadrant with satellite nodules. There was an 8 mm pulmonary parenchymal nodule in the left lower lobe of the lung. TECHNIQUE: 55 minutes following the intravenous injection of am 8.16 mCi dose of F18 fluorodeoxyglucose (FDG), three-dimensional PET CT scanning was acquired from the skull base to the proximal thighs. PET CT FINDINGS: The recently identified superomedial quadrant left breast mass is hypermetabolic. Maximum standard uptake value 12.38. There is mildly hypermetabolic uptake at approximately 12 o'clock in the left breast as well. Maximum standard uptake value 3.3 without a discernable mass. In the inferolateral quadrant of the left breast, there is borderline uptake, maximum standard uptake value 1.91. No axillary or internal mammary adenopathy or hypermetabolic uptake is seen. No abnormal skeletal or pulmonary parenchymal uptake is seen. The recently identified nodule in the left lower lobe does not show hypermetabolic uptake, maximum standard uptake value 1.61. This is adjacent to and hard to separate from the diaphragm and spleen. No abnormal hypermetabolic uptake is seen in the abdomen or pelvis. Head and neck soft tissues are unremarkable. IMPRESSION: Hypermetabolic uptake in the left breast at the site of the mass in the superomedial quadrant and also at approximately 12 o'clock in the left breast and inferiorly and laterally in the left breast. The left lower lobe lung nodule does not show hypermetabolic uptake. MTDD
== END ==
LOC: M PLARAD 11:17
PROVIDERS: ATTEND Internal Medicine Pulmonary Disease
DX: C50.912 Malignant neoplasm of unspecified site of left female breast (principal); R91.8 Other nonspecific abnormal finding of lung field
CPT/HCPCS: 78815; A9552

== ENCOUNTER → 2020-09-23 | Outpatient (REF) | payer OTHER ==
[2020-09-23 17:49] LABS: ALBUMIN 3.2 GM/DL (3.2-5.2); ALT/SGPT 143 U/L (12-78); BILIRUBIN,TOTAL 0.2 MG/DL (0.2-1.0); BLOOD UREA NITROGEN 6 MG/DL (7-18); CALCIUM LEVEL 9.4 MG/DL (8.5-10.1); CARBON DIOXIDE LEVEL 27 MEQ/L (21-32); CHLORIDE LEVEL 109 MEQ/L (98-107); CREATININE FOR GFR 0.68 MG/DL (0.55-1.30); GLOMERULAR FILTRATION RATE > 60.0 (>58); GLUCOSE, FASTING 80 MG/DL (70-100); POTASSIUM SERUM 4.1 MEQ/L (3.5-5.1); SODIUM LEVEL 141 MEQ/L (136-145); TOTAL PROTEIN 6.7 GM/DL (6.4-8.2)
== END ==
LOC: M LAB REF 16:00
PROVIDERS: ATTEND Physician Assistant
DX: Z01.818 Encounter for other preprocedural examination (principal)

== ENCOUNTER → 2020-09-30 | Outpatient (REF) | payer OTHER ==
[2020-09-30 17:01] LABS: BASO # 0.1 10^3/uL (0.0-0.2); EOS # 0.1 10^3/uL (0.0-0.5); EOS % 0.8 % (0.0-3.0); HEMATOCRIT 42.8 % (36.0-47.0); LYMPH # 1.5 10^3/uL (1.5-5.0); LYMPH % 24.3 % (24.0-44.0); MEAN CORPUSCULAR HEMOGLOBIN 31.2 pg (27.0-33.0); MEAN CORPUSCULAR HGB CONC 32.7 g/dl (32.0-36.5); MEAN CORPUSCULAR VOLUME 95.3 fl (80.0-96.0); MONO # 0.4 10^3/uL (0.0-0.8); MONO % 7.1 % (2.0-8.0); NEUTROPHILS % 66.6 % (36.0-66.0); PLATELET COUNT, AUTOMATED 300 10^3/uL (150-450); RED BLOOD COUNT 4.49 10^6/uL (4.00-5.40)
[2020-09-30 18:33] LABS: AMORPHOUS SEDIMENT MODERATE (NEGATIVE); APPEARANCE, URINE CLOUDY (CLEAR); BACTERIA, URINE AUTO NEGATIVE (NEGATIVE); BILIRUBIN, URINE AUTO NEGATIVE (NEGATIVE); BLOOD, URINE BLOOD NEGATIVE (NEGATIVE); COLOR, URINE YELLOW (YELLOW); GLUCOSE, URINE (UA) AUTO NEGATIVE (NEGATIVE); KETONE, URINE AUTO NEGATIVE (NEGATIVE); LEUKOCYTE ESTERASE, URINE AUTO NEGATIVE (NEGATIVE); MUCUS, URINE SMALL (NEGATIVE); NITRITE, URINE AUTO NEGATIVE (NEGATIVE); PROTEIN, URINE AUTO NEGATIVE (NEGATIVE); RBC, URINE AUTO 0 /HPF (0-3); SPECIFIC GRAVITY URINE AUTO 1.011 (1.002-1.035); SQUAMOUS EPITHELIAL CELL UR AU 0 /HPF (0-6); UROBILINOGEN, URINE AUTO 0.2 mg/dL (0.0-2.0); WBC, URINE AUTO 1 /HPF (0-3)
== END ==
LOC: M LAB REF 16:29
PROVIDERS: ATTEND Physician Assistant
DX: Z01.818 Encounter for other preprocedural examination (principal)

== ENCOUNTER → 2020-10-11 | Outpatient (REF) | payer OTHER ==
[2020-10-11 18:03] LABS: ALBUMIN 3.2 GM/DL (3.2-5.2); ALT/SGPT 25 U/L (12-78); BILIRUBIN,TOTAL 0.2 MG/DL (0.2-1.0); BLOOD UREA NITROGEN 8 MG/DL (7-18); CALCIUM LEVEL 9.2 MG/DL (8.5-10.1); CARBON DIOXIDE LEVEL 27 MEQ/L (21-32); CHLORIDE LEVEL 109 MEQ/L (98-107); CREATININE FOR GFR 0.63 MG/DL (0.55-1.30); FREE T4 0.92 NG/DL (0.76-1.46); GLOMERULAR FILTRATION RATE > 60.0 (>58); GLUCOSE, FASTING 100 MG/DL (70-100); POTASSIUM SERUM 4.1 MEQ/L (3.5-5.1); SODIUM LEVEL 140 MEQ/L (136-145); TOTAL PROTEIN 6.4 GM/DL (6.4-8.2)
== END ==
LOC: M LAB REF 16:15
PROVIDERS: ATTEND Physician Assistant
DX: R94.6 Abnormal results of thyroid function studies (principal); R74.01 Elevation of levels of liver transaminase levels; R80.9 Proteinuria, unspecified

== ENCOUNTER 2021-03-26 19:45 | Emergency (ER) | payer OTHER ==
[~2021-03-26] VITALS: Ht 160 cm; Wt 81.8 kg
[~2021-03-26 19:45] MED LIST changes: +ACYC1TAB PO; -ACYC400T PO; +GABA-283 PO; -GABA-845 PO
--- NOTE | 2021-03-26 20:30 | REPVR ---
PROCEDURE INFORMATION: Exam: XR Chest Exam date and time: 03/26/2021 8:14 PM Age: 50 years old Clinical indication: Other: Chest pain TECHNIQUE: Imaging protocol: XR of the chest. Views: 1 view. COMPARISON: PT PET/CT Skull/mid thigh 05/06/2020 1:10 PM FINDINGS: Tubes, catheters and devices: MediPort catheter tip in the superior vena cava. Lungs: Unremarkable. No consolidation. Pleural spaces: Unremarkable. No pleural effusion. No pneumothorax. Heart/Mediastinum: Unremarkable. No cardiomegaly. Bones/joints: Unremarkable. IMPRESSION: No acute findings. Electronically signed by: Alen Elder On 03/26/2021 20:30:13 PM
--- NOTE | 2021-03-26 20:42 | ECGEPIP ---
[facility] - ED Test Date: 2021-03-26 Pat Name: POLO RAMIREZ Department: Room: - Gender: Female Drawer In Hand: : 1970 Requested By: LISA Adkins Order Number: [id number] Reading MD: Mary Bills Measurements Intervals [place] Rate: 73 P: 58 NV: 150 QRS: 45 QRSD: 74 T: 35 QT: 386 QTc: 425 Interpretive Statements Normal sinus rhythm increased rate 11/23/17 Electronically Signed on 03-26-2021 20:41:57 EDT by Mary Bills
[2021-03-26 20:54] LABS: BASO % 0.6 % (0.0-1.0); EOS # 0.2 10^3/uL (0.0-0.5); EOS % 2.7 % (0.0-3.0); HEMATOCRIT 39.4 % (36.0-47.0); HEMOGLOBIN 13.3 g/dl (12.0-15.5); LYMPH # 1.6 10^3/uL (1.5-5.0); MEAN CORPUSCULAR HEMOGLOBIN 32.2 pg (27.0-33.0); MEAN CORPUSCULAR HGB CONC 33.8 g/dl (32.0-36.5); MEAN CORPUSCULAR VOLUME 95.4 fl (80.0-96.0); MONO # 0.7 10^3/uL (0.0-0.8); MONO % 9.6 % (2.0-8.0); NEUTROPHILS # 4.6 10^3/uL (1.5-8.5); NEUTROPHILS % 64.8 % (36.0-66.0); PLATELET COUNT, AUTOMATED 263 10^3/uL (150-450); RED BLOOD COUNT 4.13 10^6/uL (4.00-5.40); WHITE BLOOD COUNT 7.1 10^3/uL (4.0-10.0)
[2021-03-26 21:17] LABS: BLOOD UREA NITROGEN 8 MG/DL (7-18); CALCIUM LEVEL 8.7 MG/DL (8.5-10.1); CARBON DIOXIDE LEVEL 28 MEQ/L (21-32); CHLORIDE LEVEL 108 MEQ/L (98-107); CK-MB VALUE MASS < 1.0 NG/ML (<3.6); CPK CREATINE PHOSPHOKINASE 67 U/L (26-192); CREATININE FOR GFR 0.55 MG/DL (0.55-1.30); GLOMERULAR FILTRATION RATE > 60.0 (>58); GLUCOSE, FASTING 91 MG/DL (70-100); MB/CK RELATIVE INDEX 1.49 (< OR =4); POTASSIUM SERUM 3.6 MEQ/L (3.5-5.1); SODIUM LEVEL 140 MEQ/L (136-145); TROPONIN I 0.03 NG/ML (< 0.10)
[2021-03-26] MEDS ORDERED: KETOROLAC 30 MG/ML 1ML VIAL IV ONE (21:20)
[2021-03-26] MEDS ORDERED: ISOVUE-370 76% 100ML VIAL As Ordered ONE (21:44)
[2021-03-26 22:30] VITALS: BP 140/94
--- NOTE | 2021-03-26 22:50 | REPVR ---
PROCEDURE INFORMATION: Exam: CTA Chest With Contrast Exam date and time: 03/26/2021 10:11 PM Age: 50 years old Clinical indication: Chest wall pain; Additional info: Left chest wall pain, S/P mastectomy, current radiation TECHNIQUE: Imaging protocol: Computed tomographic angiography of the chest with contrast. 3D rendering (Not supervised by radiologist): MIP and/or 3D reconstructed images were created by the technologist. Radiation optimization: All CT scans at this facility use at least one of these dose optimization techniques: automated exposure control; mA and/or kV adjustment per patient size (includes targeted exams where dose is matched to clinical indication); or iterative reconstruction. Contrast material: ISOVUE 370; Contrast volume: 75 ml; Contrast route: INTRAVENOUS (IV); COMPARISON: PT PET/CT Skull/mid thigh 05/06/2020 1:10 PM FINDINGS: Tubes, catheters and devices: Right Port-A-Cath extending into the right atrium. Pulmonary arteries: The main pulmonary artery measures 23 mm. No pulmonary embolism is identified. Aorta: The ascending thoracic aorta measures 26 mm. Lungs: Slight interstitial prominence and minimal subpleural bullous change posteriorly. Pleural spaces: Unremarkable. No pneumothorax. No pleural effusion. Heart: Unremarkable. No cardiomegaly. No pericardial effusion. Lymph nodes: Unremarkable. No enlarged lymph nodes. Gallbladder and bile ducts: Status post cholecystectomy. Bones/joints: Unremarkable. No acute fracture. Soft tissues: Status post left mastectomy. IMPRESSION: 1. Status post left mastectomy. 2. Right Port-A-Cath extending into the right atrium. 3. Status post cholecystectomy. 4. Otherwise negative CTA chest. No pulmonary embolism is identified. Electronically signed by: Jose Reyes On 03/26/2021 22:50:28 PM
== END 2021-03-26 23:34 | disposition left against medical advice (07) ==
LOC: EDBD 19:45 → M ED 19:45
DX: R07.89 Other chest pain (principal); C50.412 Malignant neoplasm of upper-outer quadrant of left female breast; F17.200 Nicotine dependence, unspecified, uncomplicated; Z88.2 Allergy status to sulfonamides; Z88.8 Allergy status to other drugs, medicaments and biological substances; Z79.899 Other long term (current) drug therapy; Z90.12 Acquired absence of left breast and nipple
CPT/HCPCS: 71045; 71275; 80048; 82550; 82553; 85025; 93005; 93041; 94760; 96374; 99285; J1885; Q9967

== ENCOUNTER 2021-05-22 01:54 | Emergency (ER) | payer OTHER ==
[~2021-05-22] VITALS: Ht 160 cm; Wt 80.9 kg
[2021-05-22 01:54] VITALS: BP 138/92
--- OUTSIDE RECORDS SUMMARY | 2021-05-22 02:00 | CCD | Summary of Care ---
Author Author [facility] Address Unknown Phone Unavailable Care Team Providers Care Spring Layer Name Role Phone Tanya Mcintosh PCP Encounter Details Care Team Description Date Type Department Mix, Evelio Adkins MD [address] [place] [address] Malignant neoplasm of overlapping sites of left breast in female, estrogen receptor positive (Primary Dx) 03/24/2021 Procedure visit [place] [facility] [address] [facility] [address] [place] [id number] Allergies Comments Active Allergy Reactions Severity Noted Date Sulfamethoxazole-Trimetho Rash Low 04/09 prim Depression, suicidal thoughts Varenicline Tartrate Other (See 04/19/2020 Comments) documented as of this encounter (statuses as of 03/25/2021) Medications End Date Status Medication Sig Dispensed Refills Start Date Active Topiramate 100 MG Oral prn 0 02 Tablet (TOPAMAX) 0 Active Vitamin D 25 MCG (1000 Take 1 tablet 0 02 UT) Oral Tablet by mouth 0 daily Active Multiple Take by mouth 0 Vitamins-Minerals (ONE-A-DAY WOMENS PO) Active Gabapentin 400 MG Oral 0 Capsule (NEURONTIN) 0 Active Ondansetron HCl 8 MG Oral Take 1 tablet 20 tablet 1 Tablet by mouth 0 (ZOFRAN)Indications: every 8 Malignant neoplasm of (eight) hours left breast in female, as needed estrogen receptor for Nausea or positive, unspecified Vomiting site of breast Active Loperamide HCl 2 MG Oral Take 2 60 tablet 3 1 Tablet (Imodium tablets with 0 A-D)Indications: the first Malignant neoplasm of loose stool left breast in female, and then 1 estrogen receptor tablet with positive, unspecified each site of breast, Diarrhea subsequent due to drug stool (max dose of 8 tablets per day or 16 mg total) Active Diphenoxylate-Atropine Take 1 tablet 60 tablet 0 1 2.5-0.025 MG Oral Tablet by mouth Four 0 (Lomotil)Indications: times daily Malignant neoplasm of as needed left breast in female, for Diarrhea, estrogen receptor Max Daily positive, unspecified Dose: 4 site of breast, Diarrhea tablets due to drug Active Venlafaxine HCl ER 150 MG TAKE ONE 0 07/10 Oral Capsule Extended CAPSULE BY 0 Release 24 Hour MOUTH ONCE (EFFEXOR-XR) DAILY FOR A WEEK CAN INCREASE TO 2 CAPSULES DAILY IF TOLERATING Active Methadone HCl 5 MG Oral Take 5 mg by 0 Tablet (DOLOPHINE) mouth Three times daily Active TRAZODONE HCL PO Take by mouth 0 Active Misc. Devices (DURABLE Use as 1 each 0 MEDICAL EQUIPMENT SEE directed. 1 SIG) XX MISCIndications: Breast Malignant neoplasm of prosthesis, overlapping sites of left hx breast breast in female, cancer estrogen receptor positive Active Albuterol Sulfate HFA 108 INHALE ONE 0 12/07 (90 Base) MCG/ACT PUFF BY MOUTH 1 Inhalation Aerosol EVERY 4 HOURS Solution (PROVENTIL HFA) NEEDED Active oxyCODONE HCl 10 MG Oral TAKE 1 TO 2 0 01/02 Tablet TABLETS BY 1 MOUTH EVERY 4 HOURS NEEDED FOR PAIN MAXIMUM DAILY DOSE EIGHT TABLETS 01/14/2022 Active Fluocinonide 0.05 % Apply to left 60 g 4 External Cream (LIDEX) breast twice 1 daily under Aquaphor documented as of this encounter (statuses as of 03/25/2021) Active Problems Patient Care Coordination Note [facility] ([phone]) Problem Noted Date 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 Added automatically from request for concetta galo [id number] Neuropathy 05/21/2020 Encounter for antineoplastic chemotherapy 05/21/2020 Lung nodules 05/21/2020 Malignant neoplasm of left breast in female, estrogen receptor positive 04/22/2020 Cancer Staging: Clinical stage from 02/06: Stage IB (cT2, cN0, cM0, G3, ER+, IL+, HER2+) - Signed by Clair Guaman NP on 06/11/2020 Depression documented as of this encounter (statuses as of 03/25/2021) Resolved Problems Problem Noted Date Resolved Date Mouth sore 07/13/2020 08/13/2020 documented as of this encounter (statuses as of 03/25/2021) Social History Date Tobacco Use Types Packs/Day Years Used Current Every Day Smoker Cigarettes 1 36 Smokeless Tobacco: Never Used Comments Alcohol Use Standard Drinks/Week sober since 2017 Not Currently 0 (1 standard drink = 0.6 o z pure alcohol) Social Isolation Answer Date Recorded In a typical week, how many times do you talk on More than three times a week 07/09/2020 the phone with family, friends, or neig hbors? How often do you get together with friends or Once a week 07/09/2020 relatives? How often do you attend anabaptism or yarsani Never 07/09/2020 services? Do you belong to any clubs or organizations such No 07/09/2020 as anabaptism groups, unions, fraternal or athletic groups, or school groups? How often do you attend meetings of the clubs or Never 07/09/2020 organizations you belong to? Are you now , , , , Divorce d 07/09/2020 never or living with a partner? Physical Activity Answer Date Recorded On average, how many days per week do you engage 2 days 07/09/2020 in moderate to strenuous exercise (like walking fast, running, jogging, dancing, swimmi ng, biking, or other activities that cause a light or heavy sweat)? On average, how many minutes do you engage in 30 min 07/09/2020 exercise at this level? Stress Answer Date Recorded Do you feel stress - tense, restless, nervous, or Very muc h 07/09/2020 anxious, or unable to sleep at night be cause your mind is troubled all the time - these d ays? Financial Resource Strain Answer Date Recorde d How hard is it for you to pay for the very basics Not hard at all 07/09/2020 like food, housing, medical care, and h eating? Intimate Partner Violence Answer Date Recorde d Within the last year, have you been afraid of your No 07/09/2020 partner or ex-partner? Within the last year, have you been humiliated or No 07/09/2020 emotionally abused in other ways by you r partner or ex-partner? Within the last year, have you been kicked, hit, No 07/09/2020 slapped, or otherwise physically hurt b y your partner or ex-partner? Within the last year, have you been raped or No 07/09/2020 forced to have any kind of sexual activ ity by your partner or ex-partner? Food Insecurity Answer Date Recorded Within the past 12 months, you worried that your Never genna e 07/09/2020 food would run out before you got money to buy more. Within the past 12 months, the food you bought Never true 07/09/2020 just didn't last and you didn't have mo mary ann to get more. Transportation Needs Answer Date Recorded In the past 12 months, has lack of transportation No 07/09/2020 kept you from medical appointments or f rom getting medications? In the past 12 months, has lack of transportation No 07/09/2020 kept you from meetings, work, or gettin g things needed for daily living? Sex Assigned at Date Recorded Not on file Date Recorded COVID-19 Exposure Response 03/24/2021 8:03 AM EDT In the last month, have you been in contact with No / Unsure someone who was confirmed or suspected to have Coronavirus / COVID-19? documented as of this encounter Last Filed Vital Signs Not on filedocumented in this encounter Progress Notes * Evelio Stewart MD - 03/24/2021 2:30 PM EDT Radiation Oncology On-Treatment Visit Note Brittany is currently undergoing a course of Radiation Therapy. She was seen by me after treatment today. Image Guided Radiation Therapy imaging reviewed. 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 of fractions Current Dose 4680 26 Prescribed Dose 6040 33 There is a planned External beam boost boost. She is receiving concurrent systemic therapy. Chemotherapy 09/04/2020 12/19/2020 01/09/2021 Day, Cycle Day 1, Cycle 5 Day 1, Cycle 1 Day 1, Cycle 2 cyclophosphamide (CYTOXAN) IV - - - DOXOrubicin 2 mg/mL IV - - - PACLitaxel-protein bound (ABRAXANE) IV - - - Pertuzumab (PERJETA) IV - - - pertuzumab/trastuzumab/hyaluronidase-zzxf 60-60-2000 MG-MG-U/ML (PHESGO) SC 10 m L - - trastuzumab (HERCEPTIN) IV - - - gditcvinpvd-ohkbrgkcaqggi-uleq (HERCEPTIN HYLECTA) SC - 600 mg 600 mg Vitals: Vitals - 1 value per visit 01/29/2021 02/05/2021 02/19/2021 SYSTOLIC - - - DIASTOLIC - - - PULSE - - - TEMPERATURE - - - RESPIRATIONS - - - Weight (kg) 81.647 kg 82.101 kg 83.008 kg HEIGHT - - - SPO2 - - - BODY MASS INDEX 31.89 kg/m2 32.06 kg/m2 32.42 kg/m2 PAIN SCALE - SCORE 0 0 0 PAIN SCALE - LOCATION - - - PAIN SCALE - COMMENT - - - Medications: Current Outpatient Medications Medication Sig Dispense Refill Albuterol Sulfate HFA 108 (90 Base) MCG/ACT Inhalation Aerosol Solution ( PROVENTIL HFA) INHALE ONE PUFF BY MOUTH EVERY 4 HOURS NEEDED Diphenoxylate-Atropine 2.5-0.025 MG Oral Tablet (Lomotil) Take 1 tablet b y mouth Four times daily as needed for Diarrhea, Max Daily Dose: 4 tablets 60 t ablet 0 Fluocinonide 0.05 % External Cream (LIDEX) Apply to left breast twice juno ly under Aquaphor 60 g 4 Gabapentin 400 MG Oral Capsule (NEURONTIN) Loperamide HCl 2 MG Oral Tablet (Imodium A-D) Take 2 tablets with the fir st loose stool and then 1 tablet with each subsequent stool (max dose of 8 table ts per day or 16 mg total) 60 tablet 3 Methadone HCl 5 MG Oral Tablet (DOLOPHINE) Take 5 mg by mouth Three times daily Misc. Devices (DURABLE MEDICAL EQUIPMENT SEE SIG) XX MISC Use as directed . Breast prosthesis, hx breast cancer 1 each 0 Multiple Vitamins-Minerals (ONE-A-DAY WOMENS PO) Take by mouth Ondansetron HCl 8 MG Oral Tablet (ZOFRAN) Take 1 tablet by mouth every 8 (eight) hours as needed for Nausea or Vomiting 20 tablet 1 oxyCODONE HCl 10 MG Oral Tablet TAKE 1 TO 2 TABLETS BY MOUTH EVERY 4 HOUR S NEEDED FOR PAIN MAXIMUM DAILY DOSE EIGHT TABLETS Topiramate 100 MG Oral Tablet (TOPAMAX) prn TRAZODONE HCL PO Take by mouth Venlafaxine HCl ER 150 MG Oral Capsule Extended Release 24 Hour (EFFEXOR- XR) TAKE ONE CAPSULE BY MOUTH ONCE DAILY FOR A WEEK CAN INCREASE TO 2 CAPSULES DAILY IF TOLERATING Vitamin D 25 MCG (1000 UT) Oral Tablet Take 1 tablet by mouth daily No current facility-administered medications for this visit. Clinical Evaluation: Subjective She is tolerating therapy without difficulty. She reports mild reaction to radi ation therapy, slight hyperpigmentation. Energy level is fair . She had missed a few treatments last week as she wasn't feeling well, but notes she is in bett er spirits this week. Objective Weight is stable. The skin in the irradiated area is in good condition, with d ryness and hyperpigmentation on the chest wall, and posterior shoulder. Image Review Reviewed images have been satisfactory. Changes made as necessary. Impression and Plan: Brittany is tolerating radiation therapy as expected. The plan of care for pain includes the following intervention(s): the patient is not having any pain. Encouraged her to come for daily treatments, and to do her best not to miss frac tions. We reviewed what to expect from ongoing treatment. She was counseled, encourage d, and questions were addressed. We will continue radiation therapy as planned. documented in this encounter Plan of Treatment Care Team Description Date Type Specialty Pia Villasenor MD [address] [address] 03/26/2021 Procedure visit Radiation Oncology Devyn Talbot MD [address] [place] [address] [phone] 04/02/2021 Office Visit Hematology and Onco logy Declan Grady MD [address] [place] [address] [place] [address] [phone] 04/22/2021 Appointment Radiology Declan Grady MD [address] [place] [address] [place] [address] [phone] 04/22/2021 Office Visit Breast Surgery 10/07/2021 Appointment Radiology Health Maintenance Due Date Last Done Comments MMR Vaccines (1 of - 10/27/1972 Standard series) Varicella Vaccines (1 of 10/27/1972 2 - 2-dose childhood series) Pneumococcal Vaccine: 65+ 10/27/1977 Years (1 of 4 - PCV13) Pneumococcal Vaccine: 10/27/1977 Pediatrics (0 to 5 Years) and At-Risk Patients (6 to 64 Years) (1 of 4 - PCV13) DTaP,Tdap,and Td Vaccines 10/27/1978 (1 - Tdap) HIV Screening 10/27/1984 Cervical Cancer Screening 10/27/1992 5 years Influenza Vaccine 05/09/2021 HIB Vaccines Aged Out No longer eligible based on patient's age to complete this topic Hepatitis A Vaccines Aged Out No longer eligibl e based on patient's age to complete this topic Hepatitis B Vaccines Aged Out No longer eligibl e based on patient's age to complete this topic IPV Vaccines Aged Out No longer eligible based on patient's age to complete this topic documented as of this encounter Results Not on filedocumented in this encounter Visit Diagnoses Diagnosis Malignant neoplasm of overlapping sites of left breast in female, estrogen receptor positive - Primary documented in this encounter
--- OUTSIDE RECORDS SUMMARY | 2021-05-22 02:00 | CCD | Summary of Care ---
Author Author [facility] Organization [facility] Address Unknown Phone Unavailable Care Team Providers Care Application Engineer Name Role Phone Tanya Mcintosh PCP Reason for Referral * (Routine) Referred By Contact Referred To Contact Status Reason Specialty Diagnoses / Procedures Clair Guaman NP [address] [place] [address] Email: [email or web address] Open Diagnoses Encounter for monitoring cardiotoxic drug therapy P rocedures Echocardiogram 2D complete Electronically signed by Clair Guaman MANAGER MULTICULTURAL at * Diagnostic Radiology (Routine) Referred By Contact Referred To Contact Status Reason Specialty Diagnoses / Procedures Clair Guaman NP [address] [place] [address] Email: [email or web address] Authorized Radiology Diagnoses Bone disease P rocedures DEXA Hip and or Spine Electronically signed by Clair Guaman NP at Reason for Visit * Reason Comments Follow-up Encounter Details Care Team Description Date Type Department Devyn Talbot MD [address] [place] [address] [phone] Malignant neoplasm of overlapping sites of left breast in female, estrogen receptor positive (Primary Dx); Encounter for monitoring cardiotoxic drug therapy; Chemotherapy-induced neuropathy; Encounter for antineoplastic chemotherapy; Encounter for monitoring adjuvant hormonal therapy; Bone disease 04/02/2021 Office Visit Hematology Oncology [address] [place] [id number] Allergies Comments Active Allergy Reactions Severity Noted Date Sulfamethoxazole-Trimetho Rash Low 04/09 prim Depression, suicidal thoughts Varenicline Tartrate Other (See 04/19/2020 Comments) documented as of this encounter (statuses as of 04/14/2021) Medications End Date Status Medication Sig Dispensed Refills Start Date Active Topiramate 100 MG Oral prn 0 02 Tablet (TOPAMAX) 0 Active Multiple Take by mouth 0 Vitamins-Minerals (ONE-A-DAY WOMENS PO) Active Ondansetron HCl 8 MG Oral Take [...] Tablet (DOLOPHINE) mouth Three times daily Active Misc. Devices (DURABLE Use as 1 [...] (LIDEX) breast twice 1 daily under Aquaphor 04/03/2022 Active Letrozole 2.5 MG Oral Take 1 tablet 30 tablet 11 Tablet by mouth 1 (FEMARA)Indications: daily Malignant neoplasm of overlapping sites of left breast in female, estrogen receptor positive Active busPIRone HCl 15 MG Oral Take 15 mg by 0 03/19 Tablet (BUSPAR) mouth Two 1 Times Daily Active Vitamin D3 50 MCG (2000 Take by mouth 0 UT) Oral Capsule daily 1 Active Gabapentin 600 MG Oral Take 600 mg 0 02 Tablet (NEURONTIN) by mouth 1 Three times daily Active traZODone HCl 100 MG Oral Take 50 mg by 0 03/09 Tablet (DESYREL) mouth nightly 1 04/04/2021 Discontinued (Duplicate) Vitamin D 25 MCG (1000 Take 1 tablet 0 02 UT) Oral Tablet by mouth 0 daily 04/04/2021 Discontinued (Dose adjustmen t) Gabapentin 400 MG Oral 0 Capsule (NEURONTIN) 0 04/04/2021 Discontinued (Duplicate) TRAZODONE HCL PO Take by mouth 0 documented as of this encounter (statuses as of 04/14/2021) Active Problems Patient Care Coordination Note 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 Added automatically from request for concetta galo [id number] Neuropathy 05/21/2020 Encounter for antineoplastic chemotherapy 05/21/2020 Lung nodules 05/21/2020 Malignant neoplasm of left breast in female, estrogen receptor positive 04/22/2020 Cancer Staging: Clinical stage from 02/06: Stage IB (cT2, cN0, cM0, G3, ER+, NH+, HER2+) - Signed by Clair Guaman NP on 06/11/2020 Depression documented as of this encounter (statuses as of 04/14/2021) Resolved Problems Problem Noted Date Resolved Date Mouth sore 07/13/2020 08/13/2020 documented as of this encounter (statuses as of 04/14/2021) Social History Date Tobacco Use Types Packs/Day [...] 07/09/2020 relatives? How often do you attend [employer] or mormonism Never 07/09/2020 services? Do you belong to any clubs or organizations such No 07/09/2020 as [employer] groups, unions, fraternal or athletic groups, or [...] on file Date Recorded COVID-19 Exposure Response 04/10/2021 3:04 PM EDT In the last month, have you been in contact with No / Unsure someone who was confirmed or suspected to have Coronavirus / COVID-19? documented as of this encounter Last Filed Vital Signs Reading Time Taken Comments Vital Sign 119/83 04/02/2021 12:15 PM EDT Blood Pressure 99 04/02/2021 12:15 PM EDT Pulse 36.9 C (98.4 F) 04/02/2021 12:15 PM EDT Temperature 16 04/02/2021 12:15 PM EDT Respiratory Rate 99% 04/02/2021 12:15 PM EDT ra Oxygen Saturation - - Inhaled Oxygen Concentration 79.6 kg (175 lb 6.4 oz) 04/02/2021 12:15 PM EDT Weight - - Height 31.07 11/28/2020 12:59 PM EDT Body Mass Index documented in this encounter Progress Notes * Clair Guaman NP - 04/02/2021 11:30 AM EDT Hematology/Oncology Follow Up Note Diagnosis: 1. Malignant neoplasm of overlapping sites of left breast in female, estrogen re ceptor positive 2. Encounter for monitoring cardiotoxic drug therapy 3. Chemotherapy-induced neuropathy 4. Encounter for antineoplastic chemotherapy 5. Encounter for monitoring adjuvant hormonal therapy Date of Cancer Diagnosis: 02/07/2020 Cancer Stage Malignant neoplasm of left breast in female, estrogen receptor positive, Clinica l stage from 02/07/2020: Stage IB (cT2, cN0, cM0, G3, ER+, NH+, HER2+) Malignant neoplasm of overlapping sites of left breast in female, estrogen center receptionist tor positive, Pathologic stage from 10/02/2020: No Stage Recommended (ypT1a, pN0( sn), cM0, G3, ER-, NH+, HER2+) Malignant neoplasm of overlapping sites of left breast in female, estrogen center receptionist tor positive, Clinical: No stage assigned Past Treatment: - Left mastectomy with sentinel lymph node biopsy on 10/02/2020 - Radiation to the left chest wall to a total dose of 6040 cGy over 33 fractions completed on 04/02/2021 Treatment Goal: Curative Plan Name: OP Breast Cancer Dose Dense Doxorubicin / Cyclophosphamide (AC) Status: Inactive Start Date: 05/06/2020 End Date: 05/15/2020 Provider: Devyn Talbot MD Chemotherapy: dexamethasone (DECADRON) 4 MG tablet, 1 of 1 cycle, Start date: -- , End date: -- dexamethasone (DECADRON) 12 mg in sodium chloride 0.9 % 50 mL IVPB, 4 of 4 cycle s cyclophosphamide (CYTOXAN) 1,055 mg in sodium chloride 0.9 % chemo infusion, 4 o f 4 cycles DOXOrubicin (ADRIAMYCIN) 106 mg in sterile water (preservative free) 53 mL chemo syringe, 4 of 4 cycles DOXOrubicin 2 mg/mL in sterile water syringe 53 mg, 1 of 1 cycle Treatment Goal: Curative Plan Name: OP Breast Cancer Trastuzumab / Pertuzumab / Abraxane Status: Inactive Start Date: 06/06/2020 End Date: 09/04/2020 Provider: Devyn Talbot MD Chemotherapy: dexamethasone (DECADRON) 12 mg in sodium chloride 0.9 % 50 mL IVPB , 5 of 5 cycles trastuzumab (HERCEPTIN) 559 mg in sodium chloride 0.9 % 250 mL (2.236 mg/mL) lew mo infusion, 1 of 1 cycle PACLitaxel-protein bound (ABRAXANE) 175 mg in sodium chloride 0.9 % 35 mL IVPB, 4 of 4 cycles Pertuzumab (PERJETA) 840 mg in sodium chloride 0.9 % 250 mL infusion, 1 of 1 cyc le Current Treatment: Treatment Goal: Curative Plan Name: OP Breast Cancer Herceptin Hylecta (Q21D) Status: Active Start Date: 12/19/2020 End Date: 01/07/2022 (Planned) Provider: Devyn Talbot MD Chemotherapy: [No matching medication found in this treatment plan] ECOG Performance Status: 1- Restricted in physically strenuous activity but ambu latory and able to carry out work of a light or sedentary nature, e.g., light ho use work, office work Oncologic History: Brittany Villalpando is a 50 y.o. female with a past medical history of anxiety, arth ritis, depression, COPD, and drug abuse. She presented to her primary care docto r for evaluation of left breast pain in January 2020. She was sent for a bilateral digital mammogram with ultrasound on 02/05/2020. On mammogram, a 2.6 cm irregul ar slightly spiculated mass was seen within the posterior upper quadrant of the left breast along with an area of nodularity and architectural distortion anteri or to the mass felt to possibly represent satellite nodules (overall area of abn ormality measured 7.4 cm) On ultrasound, an irregular somewhat spiculated hypoec hoic mass measuring 2.1 x 1.7 x 2.0 cm was noted at 11 o'clock. Reported as BI-R ADS 5 with biopsy recommended. She was referred to Dr. Ramirez at the [facility] where she was seen for the firs time on 02/07/2020. She recommende d proceeding with biopsy (as scheduled) and neoadjuvant chemotherapy prior to hylton rgery given the extent of disease at the time of diagnosis. She underwent an ult rasound guided biopsy of the left breast mass on 02/07/2020. Pathology revealed grade 3 invasive ductal carcinoma; ER (1-10%) NH (90%) HER2 (3+) positive. Addit ionally, an ultrasound of the left axilla was obtained which revealed no evidenc e of abnormal appearing axillary lymph nodes however there were two notably enla rged lymph nodes. A MRI breast was obtained on 02/23/2020 and revealed no evidence of left sided a xillary or internal mammary adenopathy, a spiculated left breast mass measuring 2.7 cm without evidence of chest wall or skin involvement and bulky suspicious l inear and nodular enhancement in the left breast extending anteriorly through [facility] 12:00 region anteriorly and medially in the 10 o'clock position and inferior l aterally in the 4 to 5 o'clock position. She was evaluated by Dr. Elizabeth ([facility]) on 02/23/2020 at which time the recommendation was to proceed wit h neoadjuvant chemotherapy consisting of AC x 4 cycles followed by Taxol x 12 cy cles with Herceptin/Perjeta every 3 weeks. She was subsequently sent for staging scans on 03/05/[address] thorax, abdomen, and pelvis which revealed a left lower lobe irregular appearing 8 mm n odule with a partial pleural-based along with possible bone islands in the infer ior right iliac bone, right pubic bone, and in the left pubic bone for which ear ly metastatic disease cannot be excluded. She received cycle 1 of AC on/around 0 03/04/2020. Following cycle 1 she was severely neutropenic and was admitted to [facility] with a perirectal abscess. A bone scan was obtained on 03/18/2020 [facility] revealed no evidence of osseous metastatic disease. She would eventually rece sarah beth cycle 2 of AC with a 50% dose reduction on 04/01/2020. She presented to [facility] on 04/19/2020 where she was seen by Dr. Greenberg and Dr. Grady where she reported the desire to transfer care to [facility]. The consensus was to complete neoadjuvant chemotherapy followed by surgery and adjuvant therapies (H ER2 suppression agents, RT, and hormonal therapy). Based on review of her pre-tr eatment imaging additional work up via PET scan and updated left breast/axillary ultrasound was recommended. Due to significant neuropathy which developed while receiving AC, Dr. Greenberg recommended completing AC (had 2 remaining cycles) follo wed by Abraxane/Herceptin/Perjta. An ultrasound of the left breast/axilla was completed on 04/22/2020 and revealed at least two irregular masses close to the known cancer at 11 o'clock (biopsied cancer measuring 1.8 x 1.6 x 2.3 cm, second lesion 4 cm from the nipple measuri ng 0.5 x 0.3 x 0.6 cm, and the third lesion 3 cm from the nipple measuring 1.4 x 0.9 x 0.6 cm) with irregular appearing tissue within the lower outer breast felt to represent additional disease (abnormal enhancement on MRI). A PET scan was completed on 05/06/2020 which revealed a FDG avid left breast mass without evide nce of distant metastatic disease or uptake within the LLL nodule. She completed her 4th/final cycle of AC on 05/15/2020. She received cycle 1 of A braxane, Herceptin, and Perjeta on 06/06/2020. During her follow up visit on , she reported worsening neuropathy with significant impact on her motor function therefore the decision was made to discontinue neoadjuvant chemotherapy and proceed with surgery however she did receive Phesgo that day. Ultimately, s he received 7 out of 12 planned cycles of Abraxane. She underwent a left mastect marquis with sentinel lymph node biopsy on 10/02/2020. Surgical pathology revealed g rade 3 invasive ductal carcinoma measuring 4 x 4 x 4 mm with DCIS without eviden ce of lymphovascular invasion, evidence of probable or definite response to pres urgical therapy, negative margins, and negative lymph nodes x 4. Additionally, a separate focus of grade 1 invasive ductal carcinoma was present in the lower in ner quadrant measuring 2 mm; ER (100%) NH (100%) positive, HER2 negative. Of note, genetic testing in February 2020 revealed no evidence of deleterious gene m utations. Interim History: Patient presents today for follow up and evaluation prior to cycle 3 of maintena nce HER2 suppression. She reports that she has been well overall since she was l ast seen. She was last seen in the office for Herceptin on 01/09/2021; afterwards she was contacted regarding her ECHO findings and a plan to obtain a MUGA scan for furth er evaluation but was lost to follow up as she missed/cancelled several appointm ents. She will be completing adjuvant RT later today after several delays last m onth (per patient, due to depression). She reports that her PCP started her on Buspirone BID and she has noted an impro vement in her mood. She does still get intermittently tearful about her diagnosi s but is grateful to being doing well. She notes improvement in the previously r eported diarrhea; she does still have occasional loose stools but this is not as frequent as it has been in the past. In regards to the chemotherapy induced neuropathy, she notes a very mild improve ment in the numbness/tingling in her hands although the impact on her motor func tion persists along with no change to the numbness in her feet and the associate d impact on her motor function. She is pleased that her taste and appetite have returned back to their baseline. Otherwise, she denies recent fevers or illnesses, chest pain, shortness of breat h, abdominal pain, nausea or vomiting, constipation or diarrhea, and issues eati ng/drinking. Subjective: Review of Systems Constitutional: Positive for fatigue. Negative for activity change, appetite luisa nge, chills, fever and unexpected weight change. HENT: Negative for hearing loss, mouth sores, sore throat, trouble swallowing an d voice change. Dry mouth Eyes: Negative for visual disturbance. Respiratory: Positive for shortness of breath (with exertion). Negative for coug h. Cardiovascular: Negative for chest pain and leg swelling. Gastrointestinal: Positive for diarrhea. Negative for abdominal pain, blood in s tool, constipation, nausea and vomiting. Genitourinary: Negative for difficulty urinating, hematuria and vaginal discharg e. Musculoskeletal: Positive for arthralgias and myalgias. Skin: Negative for rash and wound. Neurological: Positive for numbness and headaches. Negative for dizziness and we akness. Hematological: Negative for adenopathy. Does not bruise/bleed easily. Psychiatric/Behavioral: Negative for agitation, behavioral problems, confusion a nd sleep disturbance. Objective: Vitals: Vitals - 1 value per visit 03/26/2021 04/02/202104/0204/02/2021 SYSTOLIC - 119 - DIASTOLIC - 83 - PULSE - 99 - TEMPERATURE - 98.4 - RESPIRATIONS - 16 - Weight (kg) - 79.561 kg - HEIGHT - - - SPO2 - 99 - BODY MASS INDEX - 31.07 kg/m2 - PAIN SCALE - SCORE 0 8 0 PAIN SCALE - LOCATION - HAND - PAIN SCALE - COMMENT - - - Physical Exam Vitals reviewed. Constitutional: General: She is not in acute distress. HENT: Head: Normocephalic. Mouth/Throat: Mouth: Mucous membranes are moist. Pharynx: No oropharyngeal exudate or posterior oropharyngeal erythema. Eyes: Extraocular Movements: Extraocular movements intact. Conjunctiva/sclera: Conjunctivae normal. Pupils: Pupils are equal, round, and reactive to light. Cardiovascular: Rate and Rhythm: Normal rate and regular rhythm. Pulses: Normal pulses. Heart sounds: Normal heart sounds. No murmur heard. Pulmonary: Effort: Pulmonary effort is normal. No respiratory distress. Breath sounds: Normal breath sounds. Abdominal: General: Bowel sounds are normal. Palpations: Abdomen is soft. Tenderness: There is no abdominal tenderness. Musculoskeletal: General: Normal range of motion. Cervical back: Normal range of motion. No muscular tenderness. Right lower leg: No edema. Left lower leg: No edema. Lymphadenopathy: Cervical: No cervical adenopathy. Skin: General: Skin is warm and dry. Comments: Hyperpigmentation of the skin along the left chest wall. No open ul cerated areas noted. Neurological: General: No focal deficit present. Mental Status: She is alert and oriented to person, place, and time. Psychiatric: Mood and Affect: Mood normal. Behavior: Behavior normal. Thought Content: Thought content normal. Judgment: Judgment normal. Imaging NM Cardiac Ventriculogram EF (MUGA) Scan 02/18/2021 Result Date: 02/18/2021 IMPRESSION: Normal resting ventriculogram. Resting left ventricular ejection fraction of 66. 8%, which is within normal limits. Lab Review Lab Results Component Value Date WBC 6.0 04/02/2021 RBC 4.88 04/02/2021 HGB 15.8 (H) 04/02/2021 HCT 46.7 (H) 04/02/2021 MCV 95.9 04/02/2021 MCH 32.4 04/02/2021 MCHC 33.8 04/02/2021 RDW 14.8 (H) 04/02/2021 PLT 227 04/02/2021 LYMPHOPCT 19 04/02/2021 MONOPCT 9 04/02/2021 EOSPCT 1 04/02/2021 NEUTROABS 4.23 04/02/2021 EOSABS 0.06 04/02/2021 BASOSABS 0.06 04/02/2021 Lab Results Component Value Date NA 141 04/02/2021 K 4.2 04/02/2021 CL 105 04/02/2021 BICARBONATE 22 04/02/2021 ANIONGAP 14 04/02/2021 GLUCOSE 93 04/02/2021 BUN 12 04/02/2021 CREATININE 0.76 04/02/2021 GFRAA >90 04/02/2021 GFRNONAA >90 04/02/2021 CALCIUM 10.0 04/02/2021 TBILI 0.3 04/02/2021 ALKPHOS 102 04/02/2021 ALT 20 04/02/2021 AST 17 04/02/2021 ALBUMIN 4.4 04/02/2021 PROT 7.5 04/02/2021 Assessment and Plan: Brittany Gardner is a 50 y.o. female with stage IB invasive ductal carcinoma of the left breast diagnosed in February 2020. Given the size of the breast mass at the ti me of diagnosis, neoadjuvant chemotherapy was recommended. She is status post ne oadjuvant chemotherapy and a left mastectomy. She resumed Herceptin in the adjuv ant setting on 12/19/2020. She presents today for follow up. 1. Stage IB Invasive Ductal Carcinoma of the Left Breast - Diagnosed in February 2020 after presenting for evaluation of left breast pain pre sent x 3 months. Biopsy revealed grade 3 invasive ductal carcinoma; ER (1-10%) P R (90%) HER2 (3+) positive. - Given the extent of disease on imaging, neoadjuvant chemotherapy was recommend ed. - She is status post neoadjuvant chemotherapy and a left mastectomy. - Patient presents today for follow up. ROS and physical exam as detailed above. - She will be completing adjuvant PMRT today. - Discussed resumption of Herceptin in the adjuvant setting including rationale for use. She understands it was placed on hold due to a drop in EF although a MU GA scan in February 2021 revealed a normal EF. She is agreeable with resuming with m onitoring of her EF via ECHO/MUGA scan as indicated. - She will return in as infusion only for Herceptin starting next week with an o ffice visit, labs, and Herceptin in 3 months. 2. Encounter for Adjuvant Antineoplastic Chemotherapy - Patient was diagnosed with stage IB invasive ductal carcinoma of the left jerod st (ER/NH/HER2 positive) in February 2020. She is status post neoadjuvant chemothera py and a left mastectomy. - Given HER2 positive disease, adjuvant chemotherapy consisting of Herceptin was recommended. She received cycle 1 of Herceptin on 12/19/2020. - Patient presents today for evaluation prior to resumption of HER2 therapy (cyc le 3). Neuropathy unchanged. Reports occasional diarrhea. - Updated MUGA scan obtained on 02/18/2021 revealed an EF of 66.8%. She will be due for an updated ECHO/MUGA scan on/around 05/21/2021. - Labs obtained today including a CBC and CMP were reviewed. No actionable resul ts noted. LFTs WNL. - Will proceed with cycle 3 of Herceptin Hylecta as scheduled; orders reviewed a nd signed off. 3. Encounter for Adjuvant Hormonal Therapy - Patient was diagnosed with hormone positive breast cancer in February 2020. She is status post neoadjuvant chemotherapy and a left mastectomy. She will be complet ing adjuvant RT today. - Goal duration of therapy is 5 years. Tentative end date is TBD. - She presents today for evaluation of tolerance to adjuvant hormonal therapy. S he denies hot flashes, night sweats at baseline. She endorses chronic myalgias a nd arthralgias. - Per patient, she has not had a baseline DEXA scan. Rationale for imaging revie wed; this has been ordered and she will await scheduling details. - Reinforced the role of Calcium and Vitamin D supplementation along with weight bearing exercises as tolerated. - Labs obtained today including a FSH and estradiol reviewed; patient confirmed as post-menopausal. - She will be started on Letrozole. Potential side effects including hot flashes , night sweats, myalgias, arthralgias, decreased bone density, and increased cho lesterol were reviewed with the patient. Prescription sent to her pharmacy on . 4. 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 - Described as numbness/tingling in her hands and feet with associated motor fun ction changes and discomfort. - Had attempted Lyrica and Gabapentin in the past for management without effect. Improvement in discomfort associated with neuropathy once she was started on Me thadone. - Neoadjuvant chemotherapy was aborted early due to worsening neuropathy. - Today, she reports a slight improvement in her neuropathy in her hands/fingers but impact on motor function persists while her feet remain completely numb with notable impact on motor function. - Will continue to monitor. 5. Symptom and Social Structure Management: - Pain: patient has chronic back pain. Follows with pain clinic closer to home; remains on Methadone. Will continue to defer management to them. - Bowel movements: patient reporting regular bowel movements; denies constipatio n and diarrhea. She is aware that Herceptin may cause diarrhea and knows the dos ing recommendations for Imodium should she require it. - Nausea or vomiting: patient denies nausea or vomiting. She does have prn Zofra n and Compazine at home. She denies needing refills today. - Depression: patient with a notable history of anxiety, depression, and substan ce abuse. Remains on Methadone, Effexor and Buspar recently added. Will continue to monitor. - Nutrition: adequate; weight stable. Will continue to monitor. - Basic ADLs: Independent at home. - Advance Directives: not discussed today. - Reproductive: not applicable. Status post hysterectomy. Brittany iVllalpando should return in as infusion only for Herceptin starting next we ek with an office visit, labs, and Herceptin in 3 months. Imaging prior to return to clinic?: no Labs on return to clinic? yes Medication changes? yes Opioid induced constipation? no Meds reconciled? yes Referrals needed? There are no social work or other referral needs at this time Patient was aware of and in agreement with the plan detailed above. They were in structed to contact the office with any questions or concerns that may arise jd or to his next follow up appointment. The availability of the 01/03 soft iron inspector servi ce was additionally reviewed with the patient. Certain parts of this note may have been carried over from prior Hematology/Onco logy notes to maintain accuracy of patient's pertinent medical history and marlene nuity of care. The details were verified and edited as appropriate. Patient was seen and discussed with Dr. Greenberg who was in agreement with the above assessment and plan. Clair Guaman MANAGER MULTICULTURAL-C Adult Hematology Oncology * Devyn Talbot MD - 04/02/2021 11:30 AM EDT I evaluated Brittany Villalpando, reviewed her history, relevant imaging and lab stud ies. Discussed with the non-physician practitioner and agree with the non-physician mariah brooke findings and plan as documented in their note. Brittany Villalpando is a 50 y.o. female with T2N0, grade 3, ER/NH and HER-2 positive breast cancer here for follow-up. She received neoadjuvant chemotherapy with 4 cycles of AC and 7 cycles of taxane s, due to significant neuropathy she was not able to complete all the taxanes. At surgery the patient was found to have 2 small foci of invasive tumor, dominan t tumor was grade 3, measuring 4 x 4 millimeter and there was an additional 2 mm focus of grade 1 invasive ductal carcinoma. This focus was found 13 cm from the main tumor. It is ER and NH strongly positive and negative for HER-2. Her or iginal tumor was ER weakly positive, 1 to 10%, NH 90% positive and HER-2 positiv e. 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 MUGA from February showed normal EF. She did not come for her herceptin infusions fo r the past few months due to having significant depression, now feels great and agreeable to resume. Finishing RT today. She will be started on hormonal therapy, had hysterectomy years ago, we will lew ck FSH and estradiol to determine her menopausal status and prescribe the approp riate agent. Informed patient if she develops any problems or issues prior to [facility], she should give our office a call immediately to our on-call service. The asaf montenegro was agreeable to plan of care. The patient did ask questions, answered to her satisfaction. Devyn Talbot MD Medical Oncologist Machine Shop Apprentice [facility] documented in this encounter Plan of Treatment Care Team Description Date Type Specialty Declan Grady MD [address] [place] [address] [place] [address] 04/22/2021 Appointment Radiology Declan Grady MD [address] [place] [address] [place] [address] 04/22/2021 Office Visit Breast Surgery 05/01/2021 Clinical Hematology and Onco logy Support Pia Villasenor MD [address] [place] [address] 05/05/2021 Office Visit Radiation Oncology 05/14/2021 Appointment Radiology Devyn Talbot MD [address] [place] [address] 05/22/2021 Office Visit Hematology and Onco logy 10/07/2021 Appointment Radiology Order Schedule Name Type Priority Associated Diag noses Expected: 04/04/2021, Expires: 2 DEXA Hip and or Spine Imaging Routine Bone dis ease Expected: 04/11/2021, Expires: 2 Echocardiogram 2D Cardiac Routine Encounter fo r monitoring complete Services cardiotoxic drug erapy Health Maintenance Due Date Last Done Comments MMR Vaccines (1 of - 10/27/1972 Standard series) Varicella Vaccines ( of 10/27/1972 2 - 2-dose childhood series) [...] this topic documented as of this encounter Procedures Comments Procedure Name Priority Date/Time Associated Diag nosis ESTRADIOL GENERATION 3 Routine 04/02/2021 >=12YO 11:22 AM EDT CBC AND DIFFERENTIAL STAT 04/02/2021 Malignant neoplasm of 11:22 AM EDT overlapping sites of left breast in female, estrogen receptor positive FOLLICLE STIMULATING Routine 04/02/2021 HORMONE 11:22 AM EDT COMPREHENSIVE METABOLIC STAT 04/02/2021 Malign ant neoplasm of PANEL 11:22 AM EDT overlapping sites o f left breast in female, estrogen receptor positive documented in this encounter Results * Follicle stimulating hormone (04/02/2021 11:22 AM EDT) Follicle Stimul 102.0 mU/ml [facility] Horm Comment: [facility] (NOTE) Pathology Females Follicular: 3.5- 12.5 Ovulation: 4.7- 21.5 Luteal: 1.7- 7.7 Post Menopausal: 25.8-134.8 Specimen Plasma Performing Organization Address [facility] P mariajose Number [facility] [address] [place] [address] 132 10 Clin Pathology * Estradiol Generation 3 >=12YO (04/02/2021 11:22 AM EDT) Estradiol 7.7 pg/mL [facility] Generation 3 Comment: [facility] (NOTE) Pathology Females Follicular: 26.7-156.0 Ovulation: 48.1-314.0 Luteal: 33.1-298.0 Post Menopausal: <49.9 Specimen Plasma Performing Organization Address City/[facility] P mariajose Number [facility] [address] [place], [place] 132 PATHOLOGY [facility] [address] [place], [place] [address] Clin Pathology * Comprehensive metabolic panel (04/02/2021 11:22 AM EDT) Albumin 4.4 3.5 - 5.2 g/dL [facility] Clin Pathology Bilirubin, 0.3 <1.2 mg/dL [facility] Total [facility] Clin Pathology Calcium 10.0 8.6 - 10.0 mg/dL [facility] Clin Pathology Chloride 105 98 - 107 mmol/L [facility] Clin Pathology Creatinine 0.76 0.50 - 0.90 mg/dL [facility] Clin Pathology Glucose 93 70 - 140 mg/dL [facility] Clin Pathology Alkaline 102 35 - 104 U/L [facility] Clin Pathology Potassium 4.2 3.4 - 5.1 mmol/L [facility] Pathology Total Protein 7.5 6.4 - 8.3 g/dL [facility] Pathology Sodium 141 136 - 145 mmol/L [facility] Clin Pathology AST/SGO 17 <32 U/L [facility] Pathology Blood Urea 12 6 - 20 mg/dL [facility] Clin Pathology Osmolality, Michael 291 275.0 - 300.0 [facility] mosm/kg [facility] Pathology BUN/Cre Ratio 16 [facility] Clin Pathology Bicarbonate 22 22 - 29 mmol/L [facility] Clin Pathology ALT/SGP 20 <33 U/L [facility] Pathology Anion Gap 14 8 - 15 mmol/L [facility] Clin Pathology GFR Non >90 >60 mL[facility]1.73m2 [facility] Clin CDK-EPI Pathology GFR >90 >60 mL/min/1.73m2 [facility] 2008 [facility] Clin CKD-EPI Pathology Specimen Plasma Performing Organization Address City/State/ZIP Code P mariajose Number [facility] [address] [place], [place] [address] 132 10 Clin Pathology * CBC and differential (04/02/2021 11:22 AM EDT) White Blood 6.0 4.00 - 10.00 10*3/uL [facility] Clin Pathology Red Blood Cell 4.88 4.10 - 5.30 10*6/uL [facility] Clin Pathology Hemoglobin 15.8 (H) 11.5 - 15.5 g/dL [facility] Clin Pathology Hematocrit 46.7 (H) 36.0 - 45.0 % [facility] Clin Pathology Mean Cell 95.9 80.0 - 96.0 fL [facility] Volume [facility] Clin Pathology Mean Cell 32.4 27.0 - 33.0 pg [facility] Hemoglobin [facility] Clin Pathology Mean Cell Hgb 33.8 32 - 36 g/dL [facility] Conc [facility] Clin Pathology Red Cell Dist 14.8 (H) 11.5 - 14.5 % [facility] Width [facility] Clin Pathology Platelet Count 227 150 - 400 10*3/uL [facility] Clin Pathology Differential Automated Diff [facility] Type [facility] Clin Pathology Neutrophil 70 % [facility] Clin Pathology Lymphocyte 19 % [facility] Clin Pathology Monocyte 9 % [facility] Clin Pathology Eosinophil 1 % [facility] Clin Pathology Basophil 1 % [facility] Clin Pathology Abs Neutrophil 4.23 1.80 - 7.00 10*3/uL [facility] Clin Pathology Abs Lymphocyte 1.17 (L) 1.20 - 4.00 10*3/uL [facility] Clin Pathology Abs Monocyte 0.51 0.00 - 0.80 10*3/uL [facility] Clin Pathology Abs Eosinophil 0.06 0.00 - 0.50 10*3/uL [facility] Clin Pathology Abs Basophil 0.06 0.00 - 0.20 10*3/uL [facility] Clin Pathology Nucleated Red 0 0 - 0 /100{WBCs} [facility] Blood Cells [facility] Clin Pathology Specimen EDTA Whole Blood Performing Organization Address City/State/ZIP Code P mariajose Number [facility] [address] [place], [place] 132[address] PATHOLOGY [facility] [address] [place], [place] [address] 10 Clin Pathology documented in this encounter Visit Diagnoses Diagnosis Malignant neoplasm of overlapping sites of left breast in female, estrogen receptor positive - Primary Encounter for monitoring cardiotoxic dr easley therapy Encounter for therapeutic drug monitori ng 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
--- OUTSIDE RECORDS SUMMARY | 2021-05-22 02:00 | CCD | Summary of Care ---
Author Author [facility] Address Unknown Phone Unavailable Care Team Providers Care Electrocardiogram Technician Name Role Phone Tanya Mcintosh PCP Encounter Details Care Team Description Date Type Department Pia Villasenor MD [address] [facility] [address] [place] [address] Malignant neoplasm of overlapping sites of left breast in female, estrogen receptor positive (Primary Dx) 03/26/2021 Procedure visit [place] [facility]co [facility]y [address] [facility] [address] [place] [address] Allergies Comments Active Allergy Reactions Severity Noted Date Sulfamethoxazole-Trimetho Rash Low 04/09 prim Depression, suicidal thoughts Varenicline Tartrate Other (See 04/19/2020 Comments) documented as of this encounter (statuses as of 03/26/2021) Medications End Date Status Medication Sig Dispensed [...] as of this encounter (statuses as of 03/26/2021) Active Problems Patient Care Coordination Note Rajni-daycare assistant ([phone]) Problem Noted Date 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 Added automatically from request for hylton iraj [id number] Neuropathy 05/21/2020 Encounter for antineoplastic chemotherapy 05/21/2020 Lung nodules 05/21/2020 Malignant neoplasm of left breast in female, estrogen receptor positive 04/22/2020 Cancer Staging: Clinical stage from 02/06: Stage IB (cT2, cN0, cM0, G3, ER+, NJ+, HER2+) - Signed by Clair Guaman NP on 06/11/2020 Depression documented as of this encounter (statuses as of 03/26/2021) Resolved Problems Problem Noted Date Resolved Date Mouth sore 07/13/2020 08/13/2020 documented as of this encounter (statuses as of 03/26/2021) Social History Date Tobacco Use Types Packs/Day [...] 07/09/2020 relatives? How often do you attend yazidi or adventist Never 07/09/2020 services? Do you belong to any clubs or organizations such No 07/09/2020 as yazidi groups, unions, fraternal or athletic groups, or [...] on file Date Recorded COVID-19 Exposure Response 03/26/2021 8:03 AM EDT In the last month, have you been in contact with No / Unsure someone who was confirmed or suspected to have Coronavirus / COVID-19? documented as of this encounter Last Filed Vital Signs Not on filedocumented in this encounter Progress Notes * Pia Villasenor MD - 03/26/2021 2:30 PM EDT Radiation Oncology On-Treatment Visit Note Brittany is currently undergoing a course of Radiation Therapy. She was seen by me after treatment today. Image Guided Radiation Therapy imaging reviewed. Diagnosis: Cancer Staging Malignant neoplasm of left breast in female, estrogen receptor positive Staging form: Breast, AJCC 8th Edition - Clinical stage from 02/07/2020: Stage IB (cT2, cN0, cM0, G3, ER+, NJ+, HER2+) - Signed by Clair Guaman NP on 06/11/2020 Malignant neoplasm of overlapping sites of left breast in female, estrogen spa receptionist tor positive Staging form: Breast, AJCC 8th Edition - Pathologic stage from 10/02/2020: No Stage Recommended (ypT1a, pN0(sn), cM0, G3 , ER-, NJ+, HER2+) - Signed by Declan Grady MD on 10/21/2020 - Clinical: No stage assigned - Unsigned ECOG Performance Status: 1 - Symptomatic but completely ambulatory Prior Therapy: Treatment Site: left chest wall Treatment intent: Adjuvant Dose in cGy No. of fractions Current Dose 5040 28 Prescribed Dose 6040 33 There is a [...] - trastuzumab (HERCEPTIN) IV - - - ebnrmdxffrt-yjtgosffkgzrk-lhsu (HERCEPTIN HYLECTA) SC - 600 mg 600 mg Vitals: Vitals - 1 value per visit 02/05/2021 02/19/2021 03/26/2021 SYSTOLIC - - - DIASTOLIC - - - PULSE - - - TEMPERATURE - - - RESPIRATIONS - - - Weight (kg) 82.101 kg 83.008 kg - HEIGHT - - - SPO2 - - - BODY MASS INDEX 32.06 kg/m2 32.42 kg/m2 - PAIN SCALE - SCORE 0 0 0 [...] therapy as planned. documented in this encounter Nursing Notes * Tierney Dumont LPN - 03/26/2021 2:30 PM EDT Radiation Oncology Nursing Documentation Skin Reaction: Yes, using Aquaphor Fatigue Level: no Mucositis: no Eating/Drinking: yes Nausea/Vomiting: no Constipation: no Diarrhea: no Urinary Difficulty: no Recent Falls: no Referral to Nutrition: no documented in this encounter Plan of Treatment Care Team Description Date Type Specialty Devyn Talbot MD [address] [place] [address] [phone] 04/02/2021 Office Visit Hematology and Onco logy Declan Grady MD [address] [place] [address] [place] [phone] 04/22/2021 Appointment Radiology Declan Grady MD [address] [place] [address] [place] [address] 04/22/2021 Office Visit Breast Surgery 10/07/2021 Appointment [...]
--- OUTSIDE RECORDS SUMMARY | 2021-05-22 02:00 | CCD | Summary of Care ---
Author Author [facility] Address Unknown Phone Unavailable Care Team Providers Care [place] Name Role Phone Tanya Mcintosh PCP Encounter Details Care Team Description Date Type Department Pia Villasenor MD [address] [facility] [address] [place] [address] Malignant neoplasm of overlapping sites of left breast in female, estrogen receptor positive (Primary Dx) 03/12/2021 Procedure visit [place] [facility] [address] [facility] [address] [place] [address] Allergies Comments Active Allergy Reactions Severity Noted Date Sulfamethoxazole-Trimetho Rash Low 04/09 prim Depression, suicidal thoughts Varenicline Tartrate Other (See 04/19/2020 Comments) documented as of this encounter (statuses as of 03/12/2021) Medications End Date Status Medication Sig Dispensed [...] as of this encounter (statuses as of 03/12/2021) Active Problems Patient Care Coordination Note Rajni-pet caretaker ([phone]) Problem Noted Date 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 Added automatically from request for hylton iraj [id number] Neuropathy 05/21/2020 Encounter for antineoplastic chemotherapy 05/21/2020 Lung nodules 05/21/2020 Malignant neoplasm of left breast in female, estrogen receptor positive 04/22/2020 Cancer Staging: Clinical stage from 02/06: Stage IB (cT2, cN0, cM0, G3, ER+, DE+, HER2+) - Signed by Clair Guaman NP on 06/11/2020 Depression documented as of this encounter (statuses as of 03/12/2021) Resolved Problems Problem Noted Date Resolved Date Mouth sore 07/13/2020 08/13/2020 documented as of this encounter (statuses as of 03/12/2021) Social History Date Tobacco Use Types Packs/Day [...] 07/09/2020 relatives? How often do you attend temple or rastafarian Never 07/09/2020 services? Do you belong to any clubs or organizations such No 07/09/2020 as temple groups, unions, fraternal or athletic groups, or [...] on file Date Recorded COVID-19 Exposure Response 03/12/2021 7:56 AM EDT In the last month, have you been in contact with No / Unsure someone who was confirmed or suspected to have Coronavirus / COVID-19? documented as of this encounter Last Filed Vital Signs Not on filedocumented in this encounter Progress Notes * Pia Villasenor MD - 03/12/2021 2:30 PM EDT Radiation Oncology On-Treatment Visit Note Brittany is currently undergoing a course of Radiation Therapy. She was seen by me after treatment today. Image Guided Radiation Therapy imaging reviewed. Diagnosis: Cancer Staging Malignant neoplasm of left breast in female, estrogen receptor positive Staging form: Breast, AJCC 8th Edition - Clinical stage from 02/07/2020: Stage IB (cT2, cN0, cM0, G3, ER+, DE+, HER2+) - Signed by Clair Guaman NP on 06/11/2020 Malignant neoplasm of overlapping sites of left breast in female, estrogen necktie turner tor positive Staging form: Breast, AJCC 8th Edition - Pathologic stage from 10/02/2020: No Stage Recommended (ypT1a, pN0(sn), cM0, G3 , ER-, DE+, HER2+) - Signed by Declan Grady MD on 10/21/2020 - Clinical: No stage assigned - Unsigned ECOG Performance Status: 1 - Symptomatic but completely ambulatory Prior Therapy: Treatment Site: left chest wall Treatment intent: Adjuvant Dose in cGy No. of fractions Current Dose 4140 23 Prescribed Dose 6040 33 There is a [...] - trastuzumab (HERCEPTIN) IV - - - bcltsfriavz-apgegtjwrcfba-qcqg (HERCEPTIN HYLECTA) SC - 600 mg 600 [...] . She had missed a few treatments because she was ill with a GI bug but is feeling better now. Objective Weight is stable. The skin in the irradiated area is in good condition. Image Review Reviewed images have been satisfactory. Changes made as necessary. Impression and Plan: Brittany is tolerating radiation therapy as expected. The plan of care for pain includes the following intervention(s): the patient is not having any pain. We reviewed what to expect from ongoing treatment. She was counseled, encourage d, and questions were addressed. We will continue radiation therapy as planned. documented in this encounter Plan of Treatment Care Team Description Date Type Specialty Devyn Talbot MD [address] [place] [address] 03/19/2021 Office Visit Hematology and Onco logy Declan Grady MD [address] [place] [address] [place] [address] 04/22/2021 Appointment Radiology Declan Grady MD [address] [place] [address] [place] [phone] 04/22/2021 Office Visit Breast Surgery 10/07/2021 Appointment Radiology Health Maintenance Due Date Last Done Comments MMR Vaccines (1 of - 10/27/1971 Standard series) Varicella Vaccines (1 10/27/1972 2 - 2-dose childhood series) Pneumococcal [...]
--- OUTSIDE RECORDS SUMMARY | 2021-05-22 02:00 | CCD | Continuity of Care Document ---
Author Author Brittany ADKINS M.D. Organization Unknown Address [address] [place] [address] Phone [phone] Care Team Providers Care Crusher [employer] Mica Name Role Phone Damion Leblanc M.D. AUTM [phone] Jin Elizabeth M.D. AUTM [phone] Mary Nieto AUTM Problems Active Problems Provider Date Essential hypertension Joseline Thompson M.D. Onset: 03/18/2016 Social History Type Date Description Comments Sex Unknown Smokeless Tobacco Never Used Smokeless Tobacco ETOH Use consumes 1 beer per week Tobacco Use Start: 08/09/94 Patient is a current smoker, smo kes every day 1 ppd Recreational Drug Use Denies Drug Use Smoking Status Reviewed: 05/14/20 Patient is a current smoker, smokes every day 1 ppd Allergies, Adverse Reactions, Alerts Active Allergies Criticality Reaction | Severity Comments Date Chantix Unable to assess criticality 04/18/2020 Bactrim Unable to assess criticality 04/18/2020 Medications Active Medications SIG Qnty Indications Ordering Provide r Date Loratadine 10mg Tablets Take One Tablet By Mouth Every Day Unknown Nystatin 551710Xgqp/GM Powder Apply Topically Two Times A Day To Affected Areas Unkn own Albuterol Sulfate HFA 108(90Base) mcg/Act Aerosol Inhale One puff By Mouth Every 4 Hours as Needed Unknown Acyclovir 400mg Tablets 1 tab by mouth three times a day 270tabs Jin Elizabeth M.D. 000 Hydroxyzine HCL 25mg Tablets 1 tab by mouth three times a day Jin Elizabeth M.D. 0 Topiramate 100mg Tablets 1 tab by mouth twice a day Lloyd Jaramillo M.D. Oxybutynin Chloride 5mg Tablets Take One Tablet By Mouth Twice A Day Unknown Ondansetron HCL 8mg Tablets 1 tab by mouth three times a day as needed 20tabs Jin Elizabeth M. D. Naproxen 500mg Tablets Take One Tablet By Mouth Two Times A Day Unknown Multivitamin Adult Tablets 1 by mouth every day Unknown Duloxetine HCL 60mg Caps DR Part 1 tab once daily Unknown Gabapentin 400mg Capsules 2 tabs once daily as needed Unknown Immunizations Description No Information Available Vital Signs Date Vital Result Comment 04/18/2020 8:14am BP Systolic 152 mmHg BP Diastolic 88 mmHg Heart Rate 96 /min O2 % BldC Oximetry 97 % Body Temperature 95.6 F Height 63 inches 5'3" Weight 153.00 lb BMI (Body Mass Index) 27.1 kg/m2 [place] Body Weight 115 lb Weight 69.401 kg BSA (Body Surface Area) 1.73 m2 04/27/2016 12:32pm BP Systolic 121 mmHg BP Diastolic 81 mmHg Heart Rate 92 /min Height 63 inches 5'3" Weight 125.00 lb BMI (Body Mass Index) 22.1 kg/m2 [place] Body Weight 115 lb Weight 56.700 kg BSA (Body Surface Area) 1.58 m2 Results Description No Information Available Procedures Date Code Description Status 04/25/2021 54949 Tobacco Cessation Counseling Com pleted 04/25/2021 60930 Office/Outpatient Established Mo d MDM 30-39 Min Completed Medical Devices Description No Information Available Encounters Type Date Location Provider Dx Diagnosis Office Visit 04/25/2021 11:[facility] Juanis Corey M.D. R91.8 Other nonspecific abnormal f inding of lung field C50.912 Malignant neoplasm of unspec ified site of left female breast F17.218 Nicotine dependence, cigaret corinne, w oth disorders J43.9 Emphysema, unspecified Assessments Date Code Description Provider 04/25/2021 R91.8 Other nonspecific abnormal findi ng of lung field Juanis Adkins M.D. 04/25/2021 C50.912 Malignant neoplasm of unspecifie d site of left female breast Juanis Adkins M.D. 04/25/2021 F17.218 Nicotine dependence, cigarettes, with other nicotine-induced disorders Juanis Adkins M.D. 04/25/2021 J43.9 Emphysema, unspecified Angelica Adkins M.D. Plan of Treatment 05/14/2020 - Juanis Adkins M.D.* R91.8 Other nonspecific abnormal finding of lung field * C50.912 Malignant neoplasm of unspecified site of left female breast * F17.218 Nicotine dependence, cigarettes, with other nicotine-induced disorders * J43.9 Emphysema, unspecified * * Follow up:* Repeat CT chest in six months; may be ordered by her Oncologist in [facility]. Follow up afterwards. Functional Status Functional Condition Comment Date Status Independent with all ADL's Activ e Independent with all IADL's Acti ve Mental Status Mental Condition Comment Date Status None Active Referrals Refer to Reason for Referral Status Appt Date Juanis Adkins M.D. ABN FINDING LUNG FIELD, NICOTINE INDUCE D DISORDERS Scheduled 03/11/2021 [facility], Pulmonary [address] [place], [place] [address] [phone] Radiology/Procedure [id number] Closed
--- OUTSIDE RECORDS SUMMARY | 2021-05-22 02:00 | CCD | Continuity of Care Document ---
Author Author Brittany ADKINS M.D. Organization Unknown Address [address] [place] [address] Phone [phone] Care Team Providers Care Power Station Operator Name Role Phone Damion Leblanc M.D. AUTM [phone] Jin Elizabeth M.D. AUTM [phone] Mary Nieto AUTM [phone] Problems Active Problems Provider Date Essential hypertension [...] Tablet By Mouth Every Day Unknown Nystatin 120542Fzsm/GM Powder Apply Topically Two Times A Day [...] lb BMI (Body Mass Index) 27.1 kg/m2 [place] Body Weight 115 lb Weight 69.401 kg BSA (Body Surface Area) 1.73 m2 04/27/2016 12:32pm BP Systolic 121 mmHg BP Diastolic 81 mmHg Heart Rate 92 /min Height 63 inches 5'3" Weight 125.00 lb BMI (Body Mass Index) 22.1 kg/m2 [place] Body Weight 115 lb Weight 56.700 kg BSA (Body Surface Area) 1.58 m2 Results Description No Information Available Procedures Description No Information Available Medical Devices Description No Information Available Encounters Description No Information Available Assessments Description No Information Available Plan of Treatment 05/14/2020 - Juanis Adkins M.D.* R91.8 Other nonspecific abnormal finding of lung field * C50.912 Malignant neoplasm of unspecified site of left female breast * F17.218 Nicotine dependence, cigarettes, with other nicotine-induced disorders * J43.9 Emphysema, unspecified * * Follow up:* Repeat CT chest in six months; may be ordered by her Oncologist in [facility]. Follow up afterwards. Functional Status Functional Condition Comment Date Status Independent with all ADL's Activ e Independent with all IADL's Acti ve Mental Status Mental Condition Comment Date Status None Active Referrals Refer to Reason for Referral Status Appt Date Juanis Adkins M.D. ABN FINDING LUNG FIELD, NICOTINE INDUCE D DISORDERS Scheduled 03/11/2021 [facility] Practice, Pulmonary [address] [place], [place] [address] [phone] Radiology/Procedure [id number] Closed
--- OUTSIDE RECORDS SUMMARY | 2021-05-22 02:00 | CCD ---
Author Organization Unknown Address [address] [place] [address] Phone [phone] Care Team Providers Care Train Announcer Name Role Phone [facility] [phone] [facility] TREATMENT OF ADDICTIONS [facility] [phone] Allergies Code Code System Name Reaction Severity Status Onset 392939 RxNorm Bactrim Rash Moderate Active 468282 RxNorm Chantix Rash Mild Active NKDA Medications Name Status Start Date Stop Date acetaminophen 325 mg tablet Active Not available acyclovir 400 mg tablet Completed 09/16/19 albuterol sulfate HFA 90 mcg/actuation a erosol inhaler INHALE ONE PUFF BY MOUTH EVERY 4 HOURS NEEDED Active Not available amitriptyline 25 mg tablet TAKE ONE TABLET BY MOUTH ONCE DAILY IN THE EVENING Completed 09/16/2020 amoxicillin 875 mg-potassium clavulanate 125 mg tablet Completed 07/29/2020 baclofen 10 mg tablet Completed 07/29/2020 buspirone 10 mg tablet TAKE ONE TABLET BY MOUTH TWO TIMES A DAY Active Not available buspirone 15 mg tablet Take 1 tablet twice a day by oral route. Active Not available cephalexin 500 mg capsule TAKE ONE CAPSULE BY MOUTH TWICE A DAY FOR 10 DAYS Completed 03/03/2021 cetirizine 10 mg tablet Completed 07/29/20 cholecalciferol (vitamin D3) 25 mcg (1,000 unit) tablet Complete d 03/03/2021 cholecalciferol (vitamin D3) 50 mcg (2,0 00 unit) capsule TAKE ONE TABLET BY MOUTH EVERY DAY Active Not available cholecalciferol (vitamin D3) 50 mcg (2,0 00 unit) tablet TAKE ONE TABLET BY MOUTH EVERY DAY Active Not available ciprofloxacin 500 mg tablet Completed 07/10 diphenoxylate-atropine 2.5 mg-0.025 mg t ablet TAKE ONE TABLET BY MOUTH FOUR TIMES A DAY NEEDED FOR DIARRHEA MAXIMUM DAILY DOSE 4 TABLETS Completed 03/03/2021 duloxetine 30 mg capsule,delayed release Completed 07/29/2020 duloxetine 60 mg capsule,delayed release Completed 07/29/2020 Effexor XR 37.5 mg capsule,extended rele ase 1 capsule once daily for a week, can increase to 2 tablets daily if tolerating Completed 09/16/2020 fluconazole 100 mg tablet TAKE ONE TABLET BY MOUTH EVERY DAY FOR YEAST INFECTION Completed 07/29/2020 fluconazole 150 mg tablet TAKE ONE TABLET BY MOUTH ON DAY 1 CAN REPEAT ON DAY 3 IF NOT RESOLVED Completed 03/03/2021 fluticasone propionate 50 mcg/actuation nasal spray,suspension C ompleted 10/31/2020 gabapentin 400 mg capsule TAKE TWO CAPSULES BY MOUTH THREE TIMES A DAY MAXIMUM DAILY DOSE 6 CAPSULES Active Not available hydrocortisone 2.5 % topical cream APPLY TO AFFECTED AREA S TWO TIMES A DAY NEEDED Completed 03/03/2021 hydroxyzine HCl 25 mg tablet TAKE ONE TABLET BY MOUTH THREE TIMES A DAY NEEDED FOR ANXIETY Completed 07/29/2020 ketorolac 10 mg tablet Completed levothyroxine 25 mcg tablet Completed 03/2021 lidoc/m dry/allyson SWISH AND SWALLOW 10 ML EVERY 4 HOURS NEEDED Completed 10/31/2020 Lidocaine Viscous 2 % mucosal solution Active Not available lidocaine-prilocaine 2.5 %-2.5 % topical cream Completed 03/03/2021 loratadine 10 mg tablet Completed 07/29/20 lorazepam 0.5 mg tablet Completed 07/29/20 methadone 5 mg tablet TAKE ONE TABLET BY MOUTH THREE TIMES A DAY MAXIMUM DAILY DOSE 3 TABLETS Active Not available naproxen 250 mg tablet TAKE ONE TABLET BY MOUTH TWICE A DAY NEEDED FOR PAIN Completed 07/29/2020 naproxen 500 mg tablet TAKE ONE TABLET BY MOUTH TWO TIMES A DAY Completed 07/29/2020 naproxen sodium 220 mg tablet Completed nicotine (polacrilex) [address] ONE LOZENGE INSIDE CHEEK NEEDED FOR SMOKING CESSATION Completed 07/29/2020 nicotine 21 mg/24 hr daily transdermal p atch PLACE 1 PATCH ONTO THE SKIN EVERY 24 HOURS Completed 07/29/2020 nystatin 100,000 unit/gram topical powde r APPLY TOPICALLY TWO TIMES A DAY TO AFFECTED AREAS Completed 03/03/2021 nystatin 100,000 unit/mL oral suspension TAKE 5 ML BY MOUTH FOUR TIMES A DAY FOR 10 DAYS Completed 07/29/2020 ondansetron HCl 8 mg tablet TAKE 1 TABLET BY MOUTH EVERY 8 HOURS NEEDED FOR FOR NAUSEA AND VOMITING Active Not available oxybutynin chloride 5 mg tablet TAKE ONE TABLET BY MOUTH TWICE A DAY Completed oxycodone 10 mg tablet TAKE 1 2 TABLETS BY MOUTH EVERY 4 HOURS NEEDED FOR PAIN MAXIMUM DAILY DOSE 8 TABLETS Active Not available oxycodone 5 mg tablet Active Not availa ble phenazopyridine 200 mg tablet TAKE ONE TABLET BY MOUTH THREE TIMES A DAY FOR 2 DAYS Completed 10/31/2020 pregabalin 100 mg capsule TAKE ONE CAPSULE BY MOUTH THREE TIMES A DAY MAXIMUM DAILY DOSE 3 Completed 07/29/2020 pregabalin 75 mg capsule TAKE ONE CAPSULE BY MOUTH TWICE A DAY MAXIMUM DAILY DOSE 2 Completed 07/29/2020 Proctozone-HC 2.5 % topical cream perineal applicator Completed 03/03/2021 sulfamethoxazole 800 mg-trimethoprim 160 mg tablet TAKE ONE TABLET BY MOUTH TWO TIMES PER DAY FOR 7 DAYS Completed 10/31/2020 tolterodine 2 mg tablet Completed 07/29/20 20 topiramate 100 mg tablet TAKE ONE TABLET BY MOUTH TWICE A DAY Active No t available topiramate 25 mg tablet Completed 07/29/20 20 topiramate 50 mg tablet Completed 07/29/20 20 trazodone 100 mg tablet TAKE 1/2 TABLET BY MOUTH AT BEDTIME Active Not available venlafaxine ER 150 mg capsule,extended r elease 24 hr TAKE 1 CAPSULE BY MOUTH EVERY DAY Active Not a vailable vitamin d3 25 mcg (1000 ut) tabs Completed 07/29/2020 vitamin d3 50 mcg (2000 ut) tabs Active Not available Vitamins B Complex capsule Active Not a vailable Problems Name Status Onset Date Source Acute Cystitis Unknown 12/27/2018 History Endocrine/metabolic Screening Unknown 12/27/2018 Hi story Breast Neoplasm Screening Status Unknown 12/27/2018 History Screening Procedure Unknown 12/27/2018 History Vitamin D Deficiency Active 01/13/2019 History Hyperlipidemia Active 01/13/2019 History Acute Vaginitis Unknown 01/13/2019 History Syphilis Test Finding Unknown 01/13/2019 History Chest Pain Unknown 01/23/2019 History Procedure by Method Unknown 01/23/2019 History Tobacco Dependence Caused by Cigarettes Active 01/24/20 19 History Generalized Anxiety Disorder Active 04/24/2020 His tory Dysthymia Active 04/24/2020 History Chronic Migraine without Aura Active 04/24/2020 Hi story Neuropathy Active 04/24/2020 History Pulmonary Emphysema Active 04/24/2020 History Midline Cystocele Active 04/24/2020 History Clinical Finding Unknown 04/24/2020 History Radiculopathy Due to Lumbar Intervertebral Disc Disorder Active 04/24/2020 History Glaucoma Active 09/24/2020 Procedures Date Name Performed by 10/02/2020 Mastectomy Notes: L breast Information not available Cholecystectomy Information not avai lable Total Hysterectomy with Removal of Both Tubes and Ovaries Information not available Notes: Hysterectomy (Complete) | Hystere ctomy with unilateral salpingoophorectomy, Gall Bladder Removal, Cysts removed Results Lab Results Date Name Specimen Result Interpretation Description Value Range Status Address 10/11/2020 CMP, Serum or Plasma Blood venous Normal Glu cose, Fasting 100 mg/dL 70-100 mg/dL [facility] nter: 0 [facility] Blood venous Normal Blood Urea Nitrogen 8 mg/dL 7 -18 mg/dL [facility]: [address] [place] [address] Blood venous Normal Creatinine for GFR 0.63 mg/dL 0.55-1.30 mg/dL [facility]: [address] [place] [address] Blood venous Normal Glomerular Filtration Rate > 60.0 >58 [facility]: [address] [place] [address] Blood venous Normal Sodium Level 140 mEq/L 136-14 5 mEq/L [facility]: [address] [place] [address] Blood venous Normal Potassium Serum 4.1 mEq/L 3.5 -5.1 mEq/L [facility]: 0 [facility] Blood venous High Chloride Level 109 mEq/L 98-1 07 mEq/L [facility]: [address] [place] [address] Blood venous Normal Carbon Dioxide Level 27 mEq/L 21-32 mEq/L [facility]: [address] [place] [address] Blood venous Low Anion Gap 4 mEq/L 8-16 mEq/L [facility]: [address] [place] [address] Blood venous Normal Calcium Level 9.2 mg/dL 8.5-1 0.1 mg/dL [facility]: [address] [facility] Blood venous Normal AST/SGOT 18 U/L 7-37 U/L Yesy l [facility]: [address] [facility] Blood venous Normal ALT/SGPT 25 U/L 12-78 U/L [facility] al [facility]: [address] [facility] Blood venous Normal Alkaline Phosphatase 111 U/L 45-117 U/L [facility]: [address] [place] [address] Blood venous Normal Bilirubin,total 0.2 mg/dL 0.2 -1.0 mg/dL [facility]: [address] [place] [address] Blood venous Normal Total Protein 6.4 gm/dL 6.4-8 .2 gm/dL [facility]: [address] [place] [address] Blood venous Normal Albumin 3.2 gm/dL 3.2-5.2 gm/ dL [facility]: [address] [place] [address] Blood venous Low Albumin/globulin Ratio 1.0 1.2-2.2 [facility]: [address] [place] [address] 10/11/2020 TSH + Free T4, Serum Blood venous Normal Thyroid Stimulating Hormone 3.010 uIU/mL 0.358-3.740 uIU/mL [facility]: [address] [place] [address] Blood venous Normal Free T4 0.92 NG/dL 0.76-1.46 NG/dL [facility]: [address] [place] [address] 09/30/2020 CBC W/ Auto Diff Normal White Blood Count 6.0 10 4.0-10.0 10 [facility]: [address] [place] [address] Normal Red Blood Count 4.49 10 4.00-5.40 10 [facility]: [address] [place] [address] Normal Hemoglobin 14.0 g/dL 12.0-15.5 g/dL [facility]: [address] [place] [address] Normal Hematocrit 42.8 % 36.0-47.0 % [facility]: [address] [place] [address] Normal Mean Corpuscular Volume 95.3 fL 80.0 -96.0 fL [facility]: [address] [facility] Normal Mean Corpuscular Hemoglobin 31.2 pg 27.0-33.0 pg Final [facility]: [address] [facility] Normal Mean Corpuscular HGB Conc 32.7 g/dL 32.0-36.5 g/dL Final [facility]: [address] [place] [address] Normal Red Cell Distribution Width 14.5 % 1 1.5-14.5 % [facility]: [address] [place] [address] Normal Platelet Count, Automated 300 10 150 -450 10 [facility]: 0 [facility] High Neutrophils % 66.6 % 36.0-66.0 % [facility]: [address] [facility] Normal Lymph % 24.3 % 24.0-44.0 % [facility]: [address] [facility] Normal [place] % 7.1 % 2.0-8.0 % Final [facility]: [address] [facility] Normal Eos % 0.8 % 0.0-3.0 % [facility]: 0 [facility] Normal Baso % 1.0 % 0.0-1.0 % [facility]: 0 [facility] Normal Immature Granulocyte % 0.2 % 0-3.0 % [facility]: [address] [facility] Normal Nucleated Red Blood Cell % 0.0 % 0- 0 % [facility]: [address] [facility] Normal Neutrophils # 4.0 10 1.5-8.5 10 [facility]: [address] [facility] Normal Lymph # 1.5 10 1.5-5.0 10 [facility]: 0 [facility] Normal [place] # 0.4 10 0.0-0.8 10 [facility]: [address] [facility] Normal Eos # 0.1 10 0.0-0.5 10 [facility]: [address] [facility] Normal Baso # 0.1 10 0.0-0.2 10 [facility]: 8[address] [facility] 09/30/2020 Urinalysis, Dipstick High Appearance, Urine cloudy clear [facility]: [address] [facility] Normal Color, Urine yellow yellow [facility]: [address] [facility] Normal pH,urine 8.0 units 5.0-9.0 units [facility]: [address] [facility] Normal Specific Gatzke Urine Auto 1.011 1 .002-1.035 [facility]: [address] [facility] Normal Protein, Urine Auto negative mg/dL n egative mg/dL [facility]: [address] [facility] Normal Glucose, Urine (UA) Auto negative mg /dL negative mg/dL [facility]: [address] [facility] Normal Ketone, Urine Auto negative mg/dL ne gative mg/dL [facility]: [address] [facility] Normal Urobilinogen, Urine Auto 0.2 mg/dL 0 .0-2.0 mg/dL [facility]: [address] [facility] Normal Bilirubin, Urine Auto negative negat sarah beth [facility]: [address] [facility] Normal Nitrite, Urine Auto negative negativ e [facility]: [address] [facility] Normal Leukocyte Esterase, Urine Auto negat sarah beth negative [facility]: [address] [facility] Normal Blood, Urine Blood negative negative [facility]: [address] [facility] Normal WBC, Urine Auto 1 /hpf 0-3 /hpf [facility]: [address] [facility] Normal RBC, Urine Auto 0 /hpf 0-3 /hpf [facility]: [address] [facility] Normal Bacteria, Urine Auto negative negati ve [facility]: [address] [facility] Normal Squamous Epithelial Cell Ur AU 0 /hp f 0-6 /hpf [facility]: [address] [facility] Normal Mucus, Urine small negative [facility]: [address] [facility] Normal Hyaline Cast, Urine Auto 0 /lpf 0-1 /lpf [facility]: [address] [facility] High Amorphous Sediment moderate negative [facility]: [address] [facility] 09/30/2020 Urinalysis, Dipstick, Auto Bilirubin 0 [facility]: [address] [facility] Blood 0 [facility]: [address] [facility] Glucose 0 [facility]: [address] [facility] Ketone 0 [facility]: [address] [facility] Leukocytes 0 [facility]: [address] [facility] Nitrite 0 [facility]: [address] [facility] Ph 7.5 [facility] Medical: [address] [facility] Protein +15 [facility]: [address] [facility] Specific Gatzke 7.5 [facility]: [address] [facility] Urobilinogen 0 [facility]: [address] [facility] 09/23/2020 CMP, Serum or Plasma Normal Glucose, Fastin g 80 mg/dL 70-100 mg/dL [facility]: 83 0 [facility] Low Blood Urea Nitrogen 6 mg/dL 7-18 mg/ dL [facility]: [address] [facility] Normal Creatinine for GFR 0.68 mg/dL 0.55-1 .30 mg/dL [facility]: [address] [facility] Normal Glomerular Filtration Rate > 60.0 >5 8 [facility]: [address] [facility] Normal Sodium Level 141 mEq/L 136-145 mEq/L [facility]: [address] [facility] Normal Potassium Serum 4.1 mEq/L 3.5-5.1 mE q/L [facility]: [address] [facility] High Chloride Level 109 mEq/L 98-107 mEq/ L [facility]: [address] [facility] Normal Carbon Dioxide Level 27 mEq/L 21-32 mEq/L [facility]: [address] [place] [address] Low Anion Gap 5 mEq/L 8-16 mEq/L [facility]: [address] [place] [address] Normal Calcium Level 9.4 mg/dL 8.5-10.1 mg/ dL [facility]: [address] [place] [address] High AST/SGOT 38 U/L 7-37 U/L [facility]: [address] [facility] High ALT/SGPT 143 U/L 12-78 U/L [facility]: [address] [facility] High Alkaline Phosphatase 141 U/L 45-117 U/L [facility]: [address] [place] [address] Normal Bilirubin,total 0.2 mg/dL 0.2-1.0 mg /dL [facility]: [address] [place] [address] Normal Total Protein 6.7 gm/dL 6.4-8.2 gm/d L [facility]: [address] [place] [address] Normal Albumin 3.2 gm/dL 3.2-5.2 gm/dL [facility]: 0 [facility] Low Albumin/globulin Ratio 0.9 1.2-2. 2 [facility]: [address] [place] [address] 09/23/2020 TSH, Serum or Plasma High Thyroid Stimulating Hormone 7.930 uIU/mL 0.358-3.740 uIU/mL [facility] nter: [address] [facility] Past Encounters 03/18/2021 Mixed Anxiety and Depressive Disorder; Insomnia Tanya Mcintosh PA-C: [address] [place] [phone], Ph. 03/03/2021 Mixed Anxiety and Depressive Disorder; Vitamin D Deficiency; Asthma; Body Mass Index 25-29 - Overweight Tanya Mcintosh PA-C: [address] [place] [phone], Ph. 11/15/2020 Dehiscence of Surgical Wound Tanya Mcintosh PA-C: [address] [place] [phone], Ph. 10/31/2020 Cellulitis of Breast; Acute Vaginitis; Vitamin D Deficiency; Thyroid Function Tests Abnormal; History of Mastectomy Tanya Mcintosh PA-C: [address] [place] [phone], Ph. 10/11/2020 Thyroid Function Tests Abnormal; Elevated Liver Enzymes Level; Proteinuria Tanya Mcintosh PA-C: [address] [place] [phone], Ph. 09/30/2020 Tanya Mcintosh PA-C: [address] [place] [phone], Ph. 09/23/2020 Pre-surgery Evaluation Tanya Mcintosh ANGEL: [address] [place] [phone], Ph. 09/16/2020 Pre-surgery Evaluation; Malignant Neoplasm of Female Breast; Insomnia; Pulmonary Emphysema; Hyperlipidemia; Glaucoma; Dysthymia; Chronic Migraine without Aura; Chronic Pain Tanya Mcintosh PA-C: [address] [place] [phone], Ph. 07/29/2020 Depressive Disorder; Adjustment Disorder with Mixed Anxiety and Depressed Mood Tanya Mcintosh ANGEL: [address] [place] [phone], Ph. Social History Tobacco Smoking Status Heavy Tobacco Smoker (1/2 pack per a day) Vaccine List Notes: Declines covid vaccine, getting C A treatment at this time. Plan of Care Reminders Provider Appointments None recorded. Lab None recorded. Referral None recorded. Procedures None recorded. Surgeries None recorded. Imaging None recorded. Vitals 03/18/2021 10:00AM TELEHEALTH 20 Height 63 in 03/03/2021 11:00AM ESTABLISHED [id number] Height Blood Pressure 63 in 127/86 mm[Hg] 11/15/2020 09:20AM PROVIDER REQUESTED Height Weight BMI Blood Pressure 63 in 168 lbs 6 oz 29.8 kg/m2 131/81 mm[Hg] 10/31/2020 10:40AM HOSPITAL DISCHARGE Height Weight BMI Blood Pressure 63 in 161 lbs 2 oz 28.5 kg/m2 131/87 mm[Hg] 09/16/2020 01:40PM MEDICAL CLEARANCE Height Weight BMI Blood Pressure 63 in 160 lbs 16 oz 28.5 kg/m2 119/90 mm[Hg] 04/24/2020 Height Weight BMI Blood Pressure 63 in 154 lbs 6.08 oz 27.45 kg/m2 113/71 mm[H g] 01/23/2019 Height Weight BMI Blood Pressure 63 in 165 lbs 29.33 kg/m2 112/78 mm[Hg] 01/13/2019 Height Weight BMI Blood Pressure 63 in 165 lbs 29.33 kg/m2 104/71 mm[Hg] 12/27/2018 Height Weight BMI Blood Pressure 63 in 166 lbs 2.08 oz 29.53 kg/m2 106/81 mm[H g]"
--- OUTSIDE RECORDS SUMMARY | 2021-05-22 02:00 | CCD | Summary of Care ---
Author Author [facility] Address Unknown Phone Unavailable Care Team Providers Care Senior Management Consultant Name Role Phone Tanya Mcintosh PCP Encounter Details Care Team Description Date Type Department Pia Villasenor MD [address] [facility] [address] [place] [address] Malignant neoplasm of overlapping sites of left breast in female, estrogen receptor positive (Primary Dx) 04/02/2021 Procedure visit [facility] [address] [facility] [address] [place] [address] Allergies Comments Active Allergy Reactions Severity Noted Date Sulfamethoxazole-Trimetho Rash Low 04/09 prim Depression, suicidal thoughts Varenicline Tartrate Other (See 04/19/2020 Comments) documented as of this encounter (statuses as of 04/02/2021) Medications End Date Status Medication Sig Dispensed [...] as of this encounter (statuses as of 04/02/2021) Active Problems Patient Care Coordination Note Rajni-healthcare technician ([phone]) Problem Noted Date 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 Added automatically from request for hylton iraj [id number] Neuropathy 05/21/2020 Encounter for antineoplastic chemotherapy 05/21/2020 Lung nodules 05/21/2020 Malignant neoplasm of left breast in female, estrogen receptor positive 04/22/2020 Cancer Staging: Clinical stage from 02/06: Stage IB (cT2, cN0, cM0, G3, ER+, KS+, HER2+) - Signed by Clair Guaman NP on 06/11/2020 Depression documented as of this encounter (statuses as of 04/02/2021) Resolved Problems Problem Noted Date Resolved Date Mouth sore 07/13/2020 08/13/2020 documented as of this encounter (statuses as of 04/02/2021) Social History Date Tobacco Use Types Packs/Day [...] 07/09/2020 relatives? How often do you attend congregation or rastafari Never 07/09/2020 services? Do you belong to any clubs or organizations such No 07/09/2020 as congregation groups, unions, fraternal or athletic groups, or [...] on file Date Recorded COVID-19 Exposure Response 04/02/2021 10:52 AM EDT In the last month, have you been in contact with No / Unsure someone who was confirmed or suspected to have Coronavirus / COVID-19? documented as of this encounter Last Filed Vital Signs Not on filedocumented in this encounter Progress Notes * Pia Villasenor MD - 04/02/2021 1:00 PM EDT Radiation Oncology On-Treatment Visit Note Brittany is currently undergoing a course of Radiation Therapy. She was seen by me after treatment today. Image Guided Radiation Therapy imaging reviewed. 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 of fractions Current Dose 6040 33 Prescribed Dose 6040 33 There is a [...] - trastuzumab (HERCEPTIN) IV - - - ozweicyeyuf-qqwbjrjngwhpn-ftpr (HERCEPTIN HYLECTA) SC - 600 mg 600 mg Vitals: Vitals - 1 value per visit 03/26/2021 04/02/2021 04/02/2021 SYSTOLIC - 119 - DIASTOLIC - 83 [...] d, and questions were addressed. We will complete radiation therapy as planned. Follow-up in 1 month documented in this encounter Nursing Notes * Tierney Dumont LPN - 04/02/2021 1:00 PM EDT Radiation Oncology Nursing Documentation Skin Reaction: yes Fatigue Level: yes Mucositis: no Eating/Drinking: yes Nausea/Vomiting: no Constipation: no Diarrhea: no Urinary Difficulty: no Recent Falls: no Referral to Nutrition: no documented in this encounter Plan of Treatment Care Team Description Date Type Specialty 04/10/2021 Clinical Hematology and Onco logy Support Declan Grady MD [address] [place] [address] [place] [phone] 04/22/2021 Appointment Radiology Declan Grady MD [address] [place] [address] [place] [phone] 04/22/2021 Office Visit Breast Surgery 05/01/2021 Clinical Hematology and Onco logy Support Pia Villasenor MD [address] [facility] [address] [place], [place] [phone] 05/05/2021 Office Visit Radiation Oncology Devyn Talbot MD [address] [place] [address] 05/22/2021 Office Visit Hematology and Onco logy 10/07/2021 Appointment Radiology Health Maintenance Due Date Last Done Comments MMR Vaccines (1 of 1 - [birth year]/27/1972 Standard series) Varicella Vaccines (1 [...]
--- OUTSIDE RECORDS SUMMARY | 2021-05-22 02:00 | CCD | Summary of Care ---
Author Author [facility] Organization [facility] Address Unknown Phone Unavailable Care Team Providers Care Ssn/Ssbn Assistant Navigator Name Role Phone Tanya Mcintosh PCP Reason for Referral * Diagnostic Radiology (Routine) Referred By Contact Referred To Contact Status Reason Specialty Diagnoses / Procedures Declan Grady MD [address] [place] [address] [place] [address] Email: [email or web address] Authorized Radiology Diagnoses Malignant neoplasm of overlapping sites of left breast in female, estrogen receptor positive P rocedures Mammo Digital Diagnostic Right Electronically signed by Declan Grady MD at Reason for Visit * Diagnostic Radiology (Routine) Referred By Contact Referred To Contact Status Reason Specialty Diagnoses / Procedures Declan Grady MD [address] [place] [address] [place] [address] Email: [email or web address] Authorized Radiology Diagnoses Malignant neoplasm of overlapping sites of left breast in female, estrogen receptor positive P rocedures Mammo Digital Diagnostic Right Encounter Details Care Team Description Date Type Department Declan Grady MD [address] [place] [address] [place] [address] Malignant neoplasm of overlapping sites of left breast in female, estrogen receptor positive 04/22/2021 Hospital Radiology [facility] Encounter [address] [address] [place] [address] Allergies Comments Active Allergy Reactions Severity Noted Date Sulfamethoxazole-Trimetho Rash Low 04/09 prim Depression, suicidal thoughts Varenicline Tartrate Other (See 04/19/2020 Comments) documented as of this encounter (statuses as of 04/23/2021) Medications End Date Status Medication Sig Dispensed [...] 0 03/09 Tablet (DESYREL) mouth nightly 1 documented as of this encounter (statuses as of 04/23/2021) Active Problems Patient Care Coordination 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 Added automatically from request for concetta galo [id number] Neuropathy 05/21/2020 Encounter for antineoplastic chemotherapy 05/21/2020 Lung nodules 05/21/2020 Malignant neoplasm of left breast in female, estrogen receptor positive 04/22/2020 Cancer Staging: Clinical stage from 02/06: Stage IB (cT2, cN0, cM0, G3, ER+, FL+, HER2+) - Signed by Clair Guaman NP on 06/11/2020 Depression documented as of this encounter (statuses as of 04/23/2021) Resolved Problems Problem Noted Date Resolved Date Mouth sore 07/13/2020 08/13/2020 documented as of this encounter (statuses as of 04/23/2021) Social History Date Tobacco Use Types Packs/Day Years Used Current Every Day Smoker Cigarettes 1 36 Smokeless Tobacco: Never Used Comments Alcohol Use Standard Drinks/Week sober since 2017 Not Currently 0 (1 standard drink = 0.6 o z pure alcohol) Social Isolation Answer Date Recorded In a typical week, how many times do you talk on More than three times a week 10/17/2020 the phone with family, friends, or neig hbors? How often do you get together with friends or Once a week 10/17/2020 relatives? How often do you attend moravian or zoroastrianism Never 10/17/2020 services? Do you belong to any clubs or organizations such No 10/17/2020 as moravian groups, unions, fraternal or athletic groups, or school groups? How often do you attend meetings of the clubs or Never 10/17/2020 organizations you belong to? Are you now , , , , Divorce d 10/17/2020 never or living with a partner? Physical Activity Answer Date Recorded On average, how many days per week do you engage 2 days 10/17/2020 in moderate to strenuous exercise (like walking fast, running, jogging, dancing, swimmi ng, biking, or other activities that cause a light or heavy sweat)? On average, how many minutes do you engage in 30 min 10/17/2020 exercise at this level? Stress Answer Date Recorded Do you feel stress - tense, restless, nervous, or Very muc h 10/17/2020 anxious, or unable to sleep at night be cause your mind is troubled all the time - these d ays? Financial Resource Strain Answer Date Recorde d How hard is it for you to pay for the very basics Not hard at all 10/17/2020 like food, housing, medical care, and h eating? Intimate Partner Violence Answer Date Recorde d Within the last year, have you been afraid of your No 10/17/2020 partner or ex-partner? Within the last year, have you been humiliated or No 10/17/2020 emotionally abused in other ways by you r partner or ex-partner? Within the last year, have you been kicked, hit, No 10/17/2020 slapped, or otherwise physically hurt b y your partner or ex-partner? Within the last year, have you been raped or No 10/17/2020 forced to have any kind of sexual activ ity by your partner or ex-partner? Food Insecurity Answer Date Recorded Within the past 12 months, you worried that your Never genna e 10/17/2020 food would run out before you got money to buy more. Within the past 12 months, the food you bought Never true 10/17/2020 just didn't last and you didn't have mo mary ann to get more. Transportation Needs Answer Date Recorded In the past 12 months, has lack of transportation No 10/17/2020 kept you from medical appointments or f rom getting medications? In the past 12 months, has lack of transportation No 10/17/2020 kept you from meetings, work, or gettin g things needed for daily living? Sex Assigned at Date Recorded Not on file Date Recorded COVID-19 Exposure Response 04/22/2021 9:52 AM EDT In the last month, have you been in contact with No / Unsure someone who was confirmed or suspected to have Coronavirus / COVID-19? documented as of this encounter Last Filed Vital Signs Not on filedocumented in this encounter Plan of Treatment Care Team Description Date Type Specialty 05/01/2021 Clinical Hematology and Onco logy Support Pia Villasenor MD [address] [facility] [address] [place] [address] 05/05/2021 Office Visit Radiation Oncology 05/14/2021 Appointment Radiology Devyn Talbot MD [address] [place] [address] 05/22/2021 Office Visit Hematology and Onco logy 10/07/2021 Appointment Radiology Declan Grady MD [address] [place] [address] [address] [place] [phone] 04/30/2022 Appointment Radiology Declan Grady MD [address] [place] [address] [place] [address] [phone] 04/30/2022 Office Visit Breast Surgery Date/Time Name Type Priority Associated Diag noses 04/22/2021 10:33 AM EDT Mammo Digital Diagnostic Imaging Routine Malig nant neoplasm of Right overlapping sites of left breast in female, estrogen receptor positive Order Schedule Name Type Priority Associated Diag noses As Needed for 1 Occurrences starting until 04/22/2021 Mammo Digital Diagnostic Imaging Routine Malig nant neoplasm of Right overlapping sites of left breast in female, estrogen receptor positive Health Maintenance Due Date Last Done Comments [...]
--- OUTSIDE RECORDS SUMMARY | 2021-05-22 02:01 | CCD | Summary of Care ---
Author Author [facility] Organization [facility] Address Unknown Phone Unavailable Care Team Providers Care Content Checker Name Role Phone Tanya Mcintosh PCP Encounter Details Care Team Description Date Type Department Pia Villasenor MD [address] [facility] [address] [place], [place] [phone] Malignant neoplasm of overlapping sites of left breast in female, estrogen receptor positive (Primary Dx) 01/02/2021 Procedure visit [facility] [address] [facility] 1[address] [place] [phone] Allergies Comments Active Allergy Reactions Severity Noted Date Sulfamethoxazole-Trimetho Rash Low 04/09 prim Depression, suicidal thoughts Varenicline Tartrate Other (See 04/19/2020 Comments) documented as of this encounter (statuses as of 02/21/2021) Medications End Date Status Medication Sig Dispensed [...] breast in female, cancer estrogen receptor positive documented as of this encounter (statuses as of 02/21/2021) Active Problems Patient Care Coordination Note [facility] ([phone]) Problem Noted Date 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 Added automatically from request for concetta galo [id number] Neuropathy 05/21/2020 Encounter for antineoplastic chemotherapy 05/21/2020 Lung nodules 05/21/2020 Malignant neoplasm of left breast in female, estrogen receptor positive 04/22/2020 Cancer Staging: Clinical stage from 02/06: Stage IB (cT2, cN0, cM0, G3, ER+, MD+, HER2+) - Signed by Clair Guaman NP on 06/11/2020 Depression documented as of this encounter (statuses as of 02/21/2021) Resolved Problems Problem Noted Date Resolved Date Mouth sore 07/13/2020 08/13/2020 documented as of this encounter (statuses as of 02/21/2021) Social History Date Tobacco Use Types Packs/Day [...] 07/09/2020 relatives? How often do you attend rastafari or christian Never 07/09/2020 services? Do you belong to any clubs or organizations such No 07/09/2020 as rastafari groups, unions, fraternal or athletic groups, or [...] on file Date Recorded COVID-19 Exposure Response 02/18/2021 12:30 PM EDT In the last month, have you been in contact with No / Unsure someone who was confirmed or suspected to have Coronavirus / COVID-19? documented as of this encounter Last Filed Vital Signs Not on filedocumented in this encounter Progress Notes * Pia Villasenor MD - 01/02/2021 3:30 PM EDT Radiation Oncology CT Simulation Note Indication Brittany Villalpando is a 50 y.o. female who was diagnosed with left breast ca. She presents today for CT Simulation to plan a course of radiation therapy. CT Simulation Note She was placed on the CT simulator table in supine. The left chest wall was reji tered in the field of view. A vac-eliud bag was made to maintain proper positioni ng. A Wing board was used for positioning. Radiopaque BB's were used to lakshmi [facility] approximate isocenter. CT scan was obtained to ensure that the intended chris tment area was included in scan. Multiple axial images were obtained from the en tire region of interest which were reviewed for image quality. The patient oliva rated the procedure well and was returned to the full upright position. The scanned images were transmitted to the treatment planning system. We used [facility] treatment planning system to display axial, coronal and sagittal representati ons of the area of interest, upon which we anson ports encompassing the left ches t wall. Brittany tolerated the simulation without any complications. documented in this encounter Plan of Treatment Care Team Description Date Type Specialty Pia Villasenor MD [address] [address] 02/26/2021 Procedure visit Radiation Oncology Devyn Talbot MD [address] [place] [address] 02/27/2021 Office Visit Hematology and Onco logy Declan Grady MD [address] [place] [address] [place] [address] [phone] 04/22/2021 Appointment Radiology Declan Grady MD [address] [place] [address] [place] [address] [phone] 04/22/2021 Office Visit Breast Surgery 10/07/2021 Appointment [...]
--- OUTSIDE RECORDS SUMMARY | 2021-05-22 02:01 | CCD ---
Author Organization Unknown Address [address] [place] [address] Phone [phone] Care Team Providers Care Shaper Set Up Operator Name Role Phone [facility] [phone] [facility] TREATMENT OF ADDICTIONS [facility] [phone] Allergies Code Code System Name Reaction Severity Status Onset 379650 RxNorm Bactrim Rash Moderate Active 983362 RxNorm Chantix Rash Mild Active NKDA Medications [...] tablet Completed 07/29/2020 buspirone 10 mg tablet Take 1 tablet twice a [...] levothyroxine 25 mcg tablet Completed 03/2021 lidoc/m dry/absentee-shawnee SWISH AND SWALLOW 10 ML EVERY 4 HOURS NEEDED Completed 10/31/2020 Lidocaine Viscous 2 % mucosal solution Active Not available lidocaine-prilocaine 2.5 %-2.5 % topical cream Completed 03/03/2021 loratadine 10 mg tablet Completed 07/29/20 20 lorazepam 0.5 mg tablet Completed 07/29/20 methadone 5 mg tablet TAKE ONE TABLET BY MOUTH THREE TIMES A DAY MAXIMUM DAILY DOSE THREE TABLETS Active Not available naproxen 250 mg [...] 10/31/2020 tolterodine 2 mg tablet Completed 07/29/20 topiramate 100 mg tablet TAKE ONE TABLET [...] Glu cose, Fasting 100 mg/dL 70-100 mg/dL [facility] nter: [address] [place] [address] Blood venous Normal Blood Urea Nitrogen 8 mg/dL 7 -18 mg/dL [facility]: [address] [place] [address] Blood venous Normal Creatinine for GFR 0.63 mg/dL 0.55-1.30 mg/dL [facility]: [address] [place] [address] Blood venous Normal Glomerular Filtration Rate > 60.0 >58 [facility]: [address] [place] [address] Blood venous Normal Sodium Level 140 mEq/L 136-14 5 mEq/L [facility]: [address] [place] [address] Blood venous Normal Potassium Serum 4.1 mEq/L 3.5 -5.1 mEq/L [facility]: [address] [place] [address] Blood venous High Chloride Level 109 mEq/L 98-1 07 mEq/L [facility]: [address] [place] [address] Blood venous Normal Carbon Dioxide Level 27 mEq/L 21-32 mEq/L [facility]: [address] [place] [address] Blood venous Low Anion Gap 4 mEq/L 8-16 mEq/L [facility]: [address] [place] [address] Blood venous Normal Calcium Level 9.2 mg/dL 8.5-1 0.1 mg/dL [facility]: [address] [place] [address] Blood venous Normal AST/SGOT 18 U/L 7-37 U/L Yesy l [facility]: [address] [place] [address] Blood venous Normal ALT/SGPT 25 U/L 12-78 U/L [facility]: [address] [place] [address] Blood venous Normal Alkaline Phosphatase 111 U/L 45-117 U/L [facility]: [address] [place] [address] Blood venous Normal Bilirubin,total 0.2 mg/dL 0.2 -1.0 mg/dL [facility]: [address] [place] [address] Blood venous Normal Total Protein 6.4 gm/dL 6.4-8 .2 gm/dL [facility]: [address] [place] [address] Blood venous Normal Albumin 3.2 gm/dL 3.2-5.2 gm/ dL [facility]: [address] [place] [address] Blood venous Low Albumin/globulin Ratio 1.0 1.2-2.2 [facility]: [address] [place] [address] 10/11/2020 TSH + Free T4, Serum Blood venous Normal Thyroid Stimulating Hormone 3.010 uIU/mL 0.358-3.740 uIU/mL [facility]: [address] [place] [address] Blood venous Normal Free T4 0.92 NG/dL 0.76-1.46 NG/dL [facility]: [address] [place] [address] 09/30/2020 CBC W/ Auto Diff Normal White Blood Count 6.0 10 4.0-10.0 10 [facility]: [address] [place] [address] Normal Red Blood Count 4.49 10 4.00-5.40 10 [facility]: [address] [place] [address] Normal Hemoglobin 14.0 g/dL 12.0-15.5 g/dL [facility]: [address] [place] [address] Normal Hematocrit 42.8 % 36.0-47.0 % [facility]: [address] [place] [address] Normal Mean Corpuscular Volume 95.3 fL 80.0 -96.0 fL [facility]: [address] [place] [address] Normal Mean Corpuscular Hemoglobin 31.2 pg 27.0-33.0 pg [facility]: [address] [facility] Normal Mean Corpuscular HGB Conc 32.7 g/dL 32.0-36.5 g/dL Final [facility]: [address] [facility] Normal Red Cell Distribution Width 14.5 % 1 1.5-14.5 % [facility]: [address] [facility] Normal Platelet Count, Automated 300 10 150 -450 10 [facility]: [address] [facility] High Neutrophils % 66.6 % 36.0-66.0 % [facility]: [address] [facility] Normal Lymph % 24.3 % 24.0-44.0 % Final [facility]: [address] [facility] Normal Rush % 7.1 % 2.0-8.0 % Final [facility]: [address] [facility] Normal Eos % 0.8 % 0.0-3.0 % [facility]: [address] [facility] Normal Baso % 1.0 % 0.0-1.0 % Final [facility]: [address] [facility] Normal Immature Granulocyte % 0.2 % 0-3.0 % [facility]: [address] [facility] Normal Nucleated Red Blood Cell % 0.0 % 0- 0 % [facility]: [address] [facility] Normal Neutrophils # 4.0 10 1.5-8.5 10 [facility]: [address] [facility] Normal Lymph # 1.5 10 1.5-5.0 10 Final [facility]: [address] [facility] Normal Rush # 0.4 10 0.0-0.8 10 [facility]: [address] [facility] Normal Eos # 0.1 10 0.0-0.5 10 [facility]: [address] [facility] Normal Baso # 0.1 10 0.0-0.2 10 [facility]: [address] [facility] 09/30/2020 Urinalysis, Dipstick High Appearance, Urine cloudy clear [facility]: [address] [facility] Normal Color, Urine yellow yellow [facility]: [address] [facility] Normal pH,urine 8.0 units 5.0-9.0 units [facility]: [address] [facility] Normal Specific [place] Urine Auto 1.011 1 .002-1.035 [facility]: [address] [facility] Normal Protein, Urine Auto negative mg/dL n egative mg/dL [facility]: [address] [facility] Normal Glucose, Urine (UA) Auto negative mg /dL negative mg/dL [facility]: [address] [facility] Normal Ketone, Urine Auto negative mg/dL ne gative mg/dL [facility]: [address] [facility] Normal Urobilinogen, Urine Auto 0.2 mg/dL 0 .0-2.0 mg/dL [facility]: [address] [facility] Normal Bilirubin, Urine Auto negative negat sarah beth [facility]: [address] [facility] Normal Nitrite, Urine Auto negative negativ e [facility]: [address] [facility] Normal Leukocyte Esterase, Urine Auto negat sarah beth negative [facility]: [address] [facility] Normal Blood, Urine Blood negative negative [facility]: [address] [facility] Normal WBC, Urine Auto 1 /hpf 0-3 /hpf [facility]: [address] [facility] Normal RBC, Urine Auto 0 /hpf 0-3 /hpf [facility]: [address] [facility] Normal Bacteria, Urine Auto negative negati ve [facility]: [address] [facility] Normal Squamous Epithelial Cell Ur AU 0 /hp f 0-6 /hpf [facility]: [address] [facility] Normal Mucus, Urine small negative [facility]: [address] [facility] Normal Hyaline Cast, Urine Auto 0 /lpf 0-1 /lpf [facility]: [address] [facility] High Amorphous Sediment moderate negative Final [facility]: [address] [facility] 09/30/2020 Urinalysis, Dipstick, Auto Bilirubin 0 [facility]: [address] [facility] Blood 0 [facility] Medical: [address] [facility] Glucose 0 [facility] Medical: [address] [facility] Ketone 0 [facility] pus Medical: [address] [facility] Leukocytes 0 [facility] Medical: [address] [facility] Nitrite 0 [facility] Medical: [address] [facility] Ph 7.5 [facility] Medical: [address] [facility] Protein +15 [facility] Medical: [address] [facility] Specific [place] 7.5 [facility] Medical: [address] [facility] Urobilinogen 0 [facility] [place] Medical: [address] [facility] 09/23/2020 CMP, Serum or Plasma Normal Glucose, Fastin g 80 mg/dL 70-100 mg/dL [facility]: [address] [facility] Low Blood Urea Nitrogen 6 mg/dL 7-18 mg/ dL [facility]: [address] [facility] Normal Creatinine for GFR 0.68 mg/dL 0.55-1 .30 mg/dL [facility]: [address] [facility] Normal Glomerular Filtration Rate > 60.0 >5 8 [facility]: [address] [facility] Normal Sodium Level 141 mEq/L 136-145 mEq/L [facility]: [address] [facility] Normal Potassium Serum 4.1 mEq/L 3.5-5.1 mE q/L [facility]: [address] [facility] High Chloride Level 109 mEq/L 98-107 mEq/ L [facility]: [address] [facility] Normal Carbon Dioxide Level 27 mEq/L 21-32 mEq/L [facility]: [address] [facility] Low Anion Gap 5 mEq/L 8-16 mEq/L [facility]: [address] [facility] Normal Calcium Level 9.4 mg/dL 8.5-10.1 mg/ dL [facility]: [address] [place] [address] High AST/SGOT 38 U/L 7-37 U/L [facility]: [address] [place] [address] High ALT/SGPT 143 U/L 12-78 U/L [facility]: [address] [facility] High Alkaline Phosphatase 141 U/L 45-117 U/L [facility]: [address] [place] [address] Normal Bilirubin,total 0.2 mg/dL 0.2-1.0 mg /dL [facility]: [address] [place] [address] Normal Total Protein 6.7 gm/dL 6.4-8.2 gm/d L [facility]: [address] [place] [address] Normal Albumin 3.2 gm/dL 3.2-5.2 gm/dL [facility]: [address] [place] [address] Low Albumin/globulin Ratio 0.9 1.2-2. 2 [facility]: [address] [place] [address] 09/23/2020 TSH, Serum or Plasma High Thyroid Stimulating Hormone 7.930 uIU/mL 0.358-3.740 uIU/mL [facility] nter: 0 [facility] Past Encounters 03/03/2021 Mixed Anxiety and Depressive Disorder; Vitamin D Deficiency; Asthma; Body Mass Index 25-29 - Overweight Tanya Mcintosh PA-C: [address] [place] [phone], Ph. 11/15/2020 Dehiscence of Surgical Wound Tanya Mcintosh PA-C: [address] [place] [phone], Ph. 10/31/2020 Cellulitis of Breast; Acute Vaginitis; Vitamin D Deficiency; Thyroid Function Tests Abnormal; History of Mastectomy Tanya Mcintosh PA-C: [address] [place] [phone], Ph. 10/11/2020 Thyroid Function Tests Abnormal; Elevated Liver Enzymes Level; Proteinuria Tanya Mcintosh PA-C: [address] [place] [phone], Ph. 09/30/2020 Tanya Mcintosh PA-C: [address] [place] [phone], Ph. 09/23/2020 Pre-surgery Evaluation Tanya Mcintosh PA-C: [address] [place] [phone], Ph. 09/16/2020 Pre-surgery Evaluation; Malignant Neoplasm of Female Breast; Insomnia; Pulmonary Emphysema; Hyperlipidemia; Glaucoma; Dysthymia; Chronic Migraine without Aura; Chronic Pain Tanya Mcintosh PA-C: [address] [place] [phone], Ph. 07/29/2020 Depressive Disorder; Adjustment Disorder with Mixed Anxiety and Depressed Mood Tanya Mcintosh PA-C: [address] [place] [phone], Ph. Social History Tobacco Smoking Status Heavy Tobacco Smoker (1/2 pack per a day) Vaccine List Notes: Declines covid vaccine, getting C A treatment at this time. Plan of Care Reminders Provider Appointments None recorded. Lab None recorded. Referral None recorded. Procedures None recorded. Surgeries None recorded. Imaging None recorded. Vitals 03/03/2021 11:00AM ESTABLISHED [id number] Height Blood Pressure 63 in 127/86 mm[Hg] [...]
--- OUTSIDE RECORDS SUMMARY | 2021-05-22 02:01 | CCD | Summary of Care ---
Author Author [facility] Address Unknown Phone Unavailable Care Team Providers Care Billboard Erector Helper Name Role Phone Tanya Mcintosh PCP Encounter Details Care Team Description Date Type Department Pia Villasenor MD [address] [facility] [address] [place] [address] Malignant neoplasm of overlapping sites of left breast in female, estrogen receptor positive (Primary Dx) 03/05/2021 Procedure visit [facility] [address] [facility] [address] [place] [address] Allergies Comments Active Allergy Reactions Severity Noted Date Sulfamethoxazole-Trimetho Rash Low 04/09 prim Depression, suicidal thoughts Varenicline Tartrate Other (See 04/19/2020 Comments) documented as of this encounter (statuses as of 03/05/2021) Medications End Date Status Medication Sig Dispensed [...] as of this encounter (statuses as of 03/05/2021) Active Problems Patient Care Coordination Note Rajni-healthcare receptionist ([phone]) Problem Noted Date 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 Added automatically from request for hylton iraj [id number] Neuropathy 05/21/2020 Encounter for antineoplastic chemotherapy 05/21/2020 Lung nodules 05/21/2020 Malignant neoplasm of left breast in female, estrogen receptor positive 04/22/2020 Cancer Staging: Clinical stage from 02/06: Stage IB (cT2, cN0, cM0, G3, ER+, AK+, HER2+) - Signed by Clair Guaman NP on 06/11/2020 Depression documented as of this encounter (statuses as of 03/05/2021) Resolved Problems Problem Noted Date Resolved Date Mouth sore 07/13/2020 08/13/2020 documented as of this encounter (statuses as of 03/05/2021) Social History Date Tobacco Use Types Packs/Day [...] 07/09/2020 relatives? How often do you attend mormonism or catholic Never 07/09/2020 services? Do you belong to any clubs or organizations such No 07/09/2020 as mormonism groups, unions, fraternal or athletic groups, or [...] on file Date Recorded COVID-19 Exposure Response 03/05/2021 2:22 PM EDT In the last month, have you been in contact with No / Unsure someone who was confirmed or suspected to have Coronavirus / COVID-19? documented as of this encounter Last Filed Vital Signs Not on filedocumented in this encounter Progress Notes * Pia Villasenor MD - 03/05/2021 2:30 PM EDT Radiation Oncology On-Treatment Visit Note Brittany is currently undergoing a course of Radiation Therapy. She was seen by me after treatment today. Image Guided Radiation Therapy imaging reviewed. Diagnosis: Cancer Staging Malignant neoplasm of left breast in female, estrogen receptor positive Staging form: Breast, AJCC 8th Edition - Clinical stage from 02/07/2020: Stage IB (cT2, cN0, cM0, G3, ER+, AK+, HER2+) - Signed by Clair Guaman NP on 06/11/2020 Malignant neoplasm of overlapping sites of left breast in female, estrogen outpatient receptionist tor positive Staging form: Breast, AJCC 8th Edition - Pathologic stage from 10/02/2020: No Stage Recommended (ypT1a, pN0(sn), cM0, G3 , ER-, AK+, HER2+) - Signed by Declan Grady MD on 10/21/2020 - Clinical: No stage assigned - Unsigned ECOG Performance Status: 1 - Symptomatic but completely ambulatory Prior Therapy: Treatment Site: left chest wall Treatment intent: Adjuvant Dose in cGy No. of fractions Current Dose 3420 19 Prescribed Dose [id number] There is a [...] - trastuzumab (HERCEPTIN) IV - - - fepgetfxbir-jsjzuazvjrlnv-zjcw (HERCEPTIN HYLECTA) SC - 600 mg 600 [...] Type Specialty Devyn Talbot MD [address] [place] [address] 03/19/2021 Office Visit Hematology and Onco logy Declan Grady MD [address] [address] [place] [address] 04/22/2021 Appointment Radiology Declan Grady MD [address] [place] [address] [place] [id number] 04/22/2021 Office Visit Breast Surgery 10/07/2021 Appointment [...]
--- OUTSIDE RECORDS SUMMARY | 2021-05-22 02:01 | CCD | Summary of Care ---
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 breast in female, estrogen receptor positive (Primary Dx) 02/19/2021 Procedure visit [facility] [address] [facility] [address] [place] [address] Allergies Comments Active Allergy Reactions Severity Noted Date Sulfamethoxazole-Trimetho Rash Low 04/09 prim Depression, suicidal thoughts Varenicline Tartrate Other (See 04/19/2020 Comments) documented as of this encounter (statuses as of 04/07/2021) Medications End Date Status Medication Sig Dispensed [...] (LIDEX) breast twice 1 daily under Aquaphor 04/04/2021 Discontinued (Duplicate) Vitamin D 25 MCG (1000 Take 1 tablet 0 02 UT) Oral Tablet by mouth 0 daily 04/04/2021 Discontinued (Dose adjustmen t) Gabapentin 400 MG Oral 0 Capsule (NEURONTIN) 0 04/04/2021 Discontinued (Duplicate) TRAZODONE HCL PO Take by mouth 0 documented as of this encounter (statuses as of 04/07/2021) Active Problems Patient Care Coordination Note Rajni-care worker ([phone]) Problem Noted Date 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 Added automatically from request for concetta galo [id number] Neuropathy 05/21/2020 Encounter for antineoplastic chemotherapy 05/21/2020 Lung nodules 05/21/2020 Malignant neoplasm of left breast in female, estrogen receptor positive 04/22/2020 Cancer Staging: Clinical stage from 02/06: Stage IB (cT2, cN0, cM0, G3, ER+, NE+, HER2+) - Signed by Clair Guaman NP on 06/11/2020 Depression documented as of this encounter (statuses as of 04/07/2021) Resolved Problems Problem Noted Date Resolved Date Mouth sore 07/13/2020 08/13/2020 documented as of this encounter (statuses as of 04/07/2021) Social History Date Tobacco Use Types Packs/Day [...] 07/09/2020 relatives? How often do you attend baptism or muslim Never 07/09/2020 services? Do you belong to any clubs or organizations such No 07/09/2020 as baptism groups, unions, fraternal or athletic groups, or [...] Signs Reading Time Taken Comments Vital Sign - - Blood Pressure - - Pulse - - Temperature - - Respiratory Rate - - Oxygen Saturation - - Inhaled Oxygen Concentration 83 kg (183 lb) 02/19/2021 2:45 PM EDT Weight - - Height 32.42 11/28/2020 12:59 PM EDT Body Mass Index documented in this encounter Progress Notes * Joshua Henson MD - 02/19/2021 2:30 PM EDT Radiation Oncology On-Treatment Visit Note Brittany is currently undergoing a course of Radiation Therapy. She was seen by me after treatment today. Image Guided Radiation Therapy imaging reviewed. Diagnosis: Cancer Staging Malignant neoplasm of left breast in female, estrogen receptor positive Staging form: Breast, AJCC 8th Edition - Clinical stage from 02/07/2020: Stage IB (cT2, cN0, cM0, G3, ER+, NE+, HER2+) - Signed by Clair Guaman NP on 06/11/2020 Malignant neoplasm of overlapping sites of left breast in female, estrogen medical receptionist tor positive Staging form: Breast, AJCC 8th Edition - Pathologic stage from 10/02/2020: No Stage Recommended (ypT1a, pN0(sn), cM0, G3 , ER-, NE+, HER2+) - Signed by Declan Grady MD on 10/21/2020 - Clinical: No stage assigned - Unsigned ECOG Performance Status: 1 - Symptomatic but completely ambulatory Prior Therapy: Treatment Site: left chest wall Treatment intent: Adjuvant Dose in cGy No. of fractions Current Dose 2880 16 Prescribed Dose 6040 33 There is a [...] - trastuzumab (HERCEPTIN) IV - - - vuxeabttypz-tifbclltiwzho-zfde (HERCEPTIN HYLECTA) SC - 600 mg 600 mg Vitals: Vitals - 1 value per visit 01/20/2021 01/29/2021 02/05/2021 SYSTOLIC - - - DIASTOLIC - - - PULSE - - - TEMPERATURE - - - RESPIRATIONS - - - Weight (kg) 79.833 kg 81.647 kg 82.101 kg HEIGHT - - - SPO2 - - - BODY MASS INDEX 31.18 kg/m2 31.89 kg/m2 32.06 kg/m2 PAIN SCALE - SCORE 0 0 [...] is tolerating therapy without difficulty. She reports no reaction to radiat ion therapy. Energy level is fair . Objective Weight is stable. The skin in [...] We will continue radiation therapy as planned. The patient was seen, examined and counseled under the supervision of attending physician Pia Inman MD. Joshua Henson MD Radiation Oncology Resident, PGY-4 I saw and evaluated the patient. Discussed with the resident and agree with resi dents findings as dictated in the resident's note. documented in this encounter Nursing Notes * Tierney Dumont LPN - 02/19/2021 2:30 PM EDT Radiation Oncology Nursing Documentation Skin Reaction: no Fatigue Level: yes Mucositis: no Eating/Drinking: yes Nausea/Vomiting: no Constipation: no Diarrhea: no Urinary Difficulty: no Recent Falls: no Referral to Nutrition: no documented in this encounter Plan of Treatment Care Team Description Date Type Specialty 04/10/2021 Clinical Hematology and Onco logy Support Declan Grady MD [address] [place] [address] [place] [address] 04/22/2021 Appointment Radiology Declan Grady MD [address] [place] [address] [place] [address] [phone] 04/22/2021 Office Visit Breast Surgery 05/01/2021 Clinical Hematology and Onco logy Support Pia Villasenor MD [address] [address] 05/05/2021 Office Visit Radiation Oncology 05/14/2021 Appointment Radiology Devyn Talbot MD [address] [place] [address] 05/22/2021 Office Visit Hematology and [...]
--- OUTSIDE RECORDS SUMMARY | 2021-05-22 02:06 | CCD ---
Author Author [facility] Organization [facility] Address Unknown Phone Unavailable Care Team Providers Care Operator Vacuum Name Role Phone Ericka Maguire MD Unavailable Unavailable Ericka Maguire MD Unavailable Unavailable Ericka Maguire MD Unavailable Unavailable Ericka Maguire MD Unavailable Unavailable Ericka Maguire MD Unavailable Unavailable Ericka Maguire MD Unavailable Unavailable Ericka Maguire MD Unavailable Unavailable Ericka Maguire MD Unavailable Unavailable Ericka Maguire MD Unavailable Unavailable Ericka Maguire MD Unavailable Unavailable Ericka Maguire MD Unavailable Unavailable Ericka Maguire MD Unavailable Unavailable Ericka Maguire MD Unavailable Unavailable Maguire Ericka CUMMINS Unavailable Unavailable Maguire Ericka CUMMINS Unavailable Unavailable Maguire Ericka CUMMINS Unavailable Unavailable Maguire Ericka CUMMINS Unavailable Unavailable Maguire Ericka CUMMINS Unavailable Unavailable Maguire Ericka CUMMINS Unavailable Unavailable Maguire Ericak CUMMINS Unavailable Unavailable Maguire Ericka CUMMINS Unavailable Unavailable Maguire Ericka CUMMINS Unavailable Unavailable Maguire Ericka CUMMINS Unavailable Unavailable Maguire Ericka CUMMINS Unavailable Unavailable Maguire Ericka CUMMINS Unavailable Unavailable Maguire Ericka CUMMINS Unavailable Unavailable Maguire Ericka CUMMINS Unavailable Unavailable Maguire Ericka CUMMINS Unavailable Unavailable Maguire Ericka CUMMINS Unavailable Unavailable Maguire Ericka CUMMINS Unavailable Unavailable Maguire Ericka CUMMINS Unavailable Unavailable Maguire Ericka CUMMINS Unavailable Unavailable Maguire Ericka CUMMINS Unavailable Unavailable Maguire Ericka CUMMINS Unavailable Unavailable Maguire Ericka CUMMINS Unavailable Unavailable Maguire Ericka CUMMINS Unavailable Unavailable Maguire Ericka CUMMINS Unavailable Unavailable Maguire Eircka CUMMINS Unavailable Unavailable Juanis Dickerson MD Unavailable Unavailable Juanis Dickerson MD Unavailable Unavailable Juanis Dickerson MD Unavailable Unavailable Juanis Dickerson MD Unavailable Unavailable Juanis Dickerson MD Unavailable Unavailable Juanis Dickerson MD Unavailable Unavailable Juanis Dickerson MD Unavailable Unavailable Juanis Dickerson MD Unavailable Unavailable Juanis Dickerson MD Unavailable Unavailable Juanis Dickerson MD Unavailable Unavailable Juanis Dickerson MD Unavailable Unavailable Juanis Dickerson MD Unavailable Unavailable Juanis Dickerson MD Unavailable Unavailable Juanis Dickerson MD Unavailable Unavailable Juanis Dickerson MD Unavailable Unavailable Juanis Dickerson MD Unavailable Unavailable Juanis Dickerson MD Unavailable Unavailable Juanis Dickerson MD Unavailable Unavailable Juanis Dickerson MD Unavailable Unavailable Juanis Dickerson MD Unavailable Unavailable Juanis Dickerson MD Unavailable Unavailable Juanis Dickerson MD Unavailable Unavailable Juanis Dickerson MD Unavailable Unavailable Juanis Dickerson MD Unavailable Unavailable Juanis Dickerson MD Unavailable Unavailable Juanis Dickerson MD Unavailable Unavailable Juanis Dickerson MD Unavailable Unavailable Juanis Dickerson MD Unavailable Unavailable Juanis Dickerson MD Unavailable Unavailable Juanis Dickerson MD Unavailable Unavailable GILTHELMA, T ALLA Unavailable Unavailable Socorro MARIA Unavailable Unavailable Enedelia Mcintosh Unavailable Unavailable Scordo, M Tanya PA Unavailable Unavailable Scordo, M Tanya PA Unavailable Unavailable Scordo, M Tanya PA Unavailable Unavailable Scordo, M Tanya PA Unavailable Unavailable Scordo, M Tanya PA Unavailable Unavailable Scordo, M Tanya PA Unavailable Unavailable Scordo, M Tanya PA Unavailable Unavailable Scordo, M Tanya PA Unavailable Unavailable Scordo, M Tanya PA Unavailable Unavailable Scordo, M Tanya PA Unavailable Unavailable Scordo, M Tanya PA Unavailable Unavailable Scordo, M Tanya PA Unavailable Unavailable Scordo, M Tanya PA Unavailable Unavailable Scordo, M Tanya PA Unavailable Unavailable Scordo, M Tanya PA Unavailable Unavailable Scordo, M Tanya PA Unavailable Unavailable Scordo, M Tanya PA Unavailable Unavailable Scordo, M Tanya PA Unavailable Unavailable Scordo, M Tanya PA Unavailable Unavailable Scordo, M Tanya PA Unavailable Unavailable Scordo, M Tanya PA Unavailable Unavailable Scordo, M Tanya PA Unavailable Unavailable Scordo, M Tanya PA Unavailable Unavailable Scordo, M Tanya PA Unavailable Unavailable Scordo, M Tanya PA Unavailable Unavailable Scordo, M Tanya PA Unavailable Unavailable Scordo, M Tanya PA Unavailable Unavailable Scordo, M Tanya PA Unavailable Unavailable Scordo, M Tanya PA Unavailable Unavailable Scordo, M Tanya PA Unavailable Unavailable Scordo, M Tanya PA Unavailable Unavailable Scordo, M Tanya PA Unavailable Unavailable Scordo, M Tanya PA Unavailable Unavailable Scordo, M Tanya PA Unavailable Unavailable Scordo, M Tanya PA Unavailable Unavailable Scordo, M Tanya PA Unavailable Unavailable Scordo, M Tanya PA Unavailable Unavailable Scordo, M Tanya PA Unavailable Unavailable Scordo, M Tanya PA Unavailable Unavailable Scordo, M Tanya PA Unavailable Unavailable Scordo, M Tanya PA Unavailable Unavailable Scordo, M Tanya PA Unavailable Unavailable Scordo, M Tayna PA Unavailable Unavailable Scordo, M Tanya PA Unavailable Unavailable Scordo, M Tanya PA Unavailable Unavailable Scordo, M Tanya PA Unavailable Unavailable Aj Mccullough MD Unavailable [email or web address] Aj Mccullough MD Unavailable [email or web address] Aj Mccullough MD Unavailable Aj Mccullough MD Unavailable Mccullough, Aj CUMMINS Unavailable Mccullough, Aj CUMMINS Unavailable [email or web address] Mccullough, Aj CUMMINS Unavailable [email or web address] Mccullough, Aj CUMMINS Unavailable [email or web address] Mccullough, Aj CUMMINS Unavailable [email or web address] Mccullough, Aj CUMMINS Unavailable [email or web address] Mccullough, Aj CUMMINS Unavailable [email or web address] Mccullough, Aj CUMMINS Unavailable [email or web address] Mccullough, Aj CUMMINS Unavailable [email or web address] Mccullough, Aj CUMMINS Unavailable [email or web address] Mccullough, Aj CUMMINS Unavailable [email or web address] Mccullough, Aj CUMMINS Unavailable [email or web address] Mccullough, jA CUMMINS Unavailable [email or web address] Mccullough, Aj CUMMINS Unavailable [email or web address] Mccullough, Aj CUMMINS Unavailable [email or web address] Mccullough, Aj CUMMINS Unavailable [email or web address] Mccullough, Aj CUMMINS Unavailable [email or web address] Mccullough, Aj CUMMINS Unavailable [email or web address] Mccullough, Aj CUMMINS Unavailable [email or web address] Mccullough, Aj CUMMINS Unavailable [email or web address] Mccullough, Aj CUMMINS Unavailable [email or web address] Mccullough, Aj CUMMINS Unavailable [email or web address] Mccullough, Aj CUMMINS Unavailable [email or web address] Mccullough, Aj CUMMINS Unavailable LEUBNER FAX MACHINE REPAIRER, PHILLIP LUJAN FAX MACHINE REPAIRER Unavailable [email or web address] LEUBNER FAX MACHINE REPAIRER, PHILLIP LUJAN FAX MACHINE REPAIRER Unavailable [email or web address] LEUBNER FAX MACHINE REPAIRER, PHILLIP BARNEYNA FAX MACHINE REPAIRER Unavailable [email or web address] LEUBNER FAX MACHINE REPAIRER, PHILLIP BARNEYNA FAX MACHINE REPAIRER Unavailable [email or web address] LEUBNER FAX MACHINE REPAIRER, PHILLIP BANREYNA FAX MACHINE REPAIRER Unavailable [email or web address] LEUBNER FAX MACHINE REPAIRER, PHILLIP BARNEYNA FAX MACHINE REPAIRER Unavailable [email or web address] LEUBNER FAX MACHINE REPAIRER, PHILLIP BARNEYNA FAX MACHINE REPAIRER Unavailable [email or web address] LEUBNER FAX MACHINE REPAIRER, PHILLIP LE FAX MACHINE REPAIRER Unavailable [email or web address] LEUBNER FAX MACHINE REPAIRER, PHILLIP BARNEYNA FAX MACHINE REPAIRER Unavailable [email or web address] LEUBNER FAX MACHINE REPAIRER, PHILLIP LUJAN FAX MACHINE REPAIRER Unavailable [email or web address] LEUBNER FAX MACHINE REPAIRER, PHILLIP LUJAN FAX MACHINE REPAIRER Unavailable [email or web address] LEUBNER FAX MACHINE REPAIRER, PHILLIP LUJAN FAX MACHINE REPAIRER Unavailable [email or web address] LEUBNER FAX MACHINE REPAIRER, PHILLIP LUJAN FAX MACHINE REPAIRER Unavailable [email or web address] LEUBNER FAX MACHINE REPAIRER, PHILLIP LUJAN FAX MACHINE REPAIRER Unavailable [email or web address] LEUBNER FAX MACHINE REPAIRER, PHILLIP LUJAN FAX MACHINE REPAIRER Unavailable [email or web address] LEUBNER FAX MACHINE REPAIRER, PHILLIP LUJAN FAX MACHINE REPAIRER Unavailable [email or web address] LEUBNER FAX MACHINE REPAIRER, PHILLIP LUJAN FAX MACHINE REPAIRER Unavailable [email or web address] LEUBNER FAX MACHINE REPAIRER, PHILLIP LUJAN FAX MACHINE REPAIRER Unavailable [email or web address] LEUBNER FAX MACHINE REPAIRER, PHILLIP LUJAN FAX MACHINE REPAIRER Unavailable [email or web address] LEUBNER FAX MACHINE REPAIRER, PHILLIP LUJAN FAX MACHINE REPAIRER Unavailable [email or web address] LEUBNER FAX MACHINE REPAIRER, PHILLIP LUJAN FAX MACHINE REPAIRER Unavailable [email or web address] LEUBNER FAX MACHINE REPAIRER, PHILLIP LUJAN FAX MACHINE REPAIRER Unavailable [email or web address] LEUBNER FAX MACHINE REPAIRER, PHILLIP LUJAN FAX MACHINE REPAIRER Unavailable [email or web address] AJ MCCULLOUGH Unavailable Unavailable Rojelio SANTOS Unavailable Unavailable Mana, Socorro Fraser MD Unavailable Unavailable Mana, Socorro Fraser MD Unavailable Unavailable Mana, Socorro Fraser MD Unavailable Unavailable Norman, Socorro Fraser MD Unavailable Unavailable Norman, Socorro Fraser MD Unavailable Unavailable Mana, Socorro Fraser MD Unavailable Unavailable Mana, Socorro Fraser MD Unavailable Unavailable Mana, Socorro Fraser MD Unavailable Unavailable Mana, Socorro Fraser MD Unavailable Unavailable Norman, Socorro Fraser MD Unavailable Unavailable Mana, Socorro Fraser MD Unavailable Unavailable Norman, Socorro Fraser MD Unavailable Unavailable Norman, Socorro Fraser MD Unavailable Unavailable Mana, Socorro Fraser MD Unavailable Unavailable Norman, Socorro Fraser MD Unavailable Unavailable Norman, Socorro Fraser MD Unavailable Unavailable Mana, Socorro Fraser MD Unavailable Unavailable Mana, Socorro Fraser MD Unavailable Unavailable Norman, Socorro Fraser MD Unavailable Unavailable Norman, Socorro Fraser MD Unavailable Unavailable Norman, Socorro Fraser MD Unavailable Unavailable Mana, Socorro Fraser MD Unavailable Unavailable Norman, Socorro Fraser MD Unavailable Unavailable Mana, Socorro Fraser MD Unavailable Unavailable Norman, Socorro Fraser MD Unavailable Unavailable Mana, Socorro Fraser MD Unavailable Unavailable Mana, Socorro Fraser MD Unavailable Unavailable Norman, Socorro Fraser MD Unavailable Unavailable Mana, Socorro Fraser MD Unavailable Unavailable Mana, Socorro Fraser MD Unavailable Unavailable Maan, Socorro Fraser MD Unavailable Unavailable Mana, Socorro Fraser MD Unavailable Unavailable Mana, Socorro Fraser MD Unavailable Unavailable aMna, Socorro Fraser MD Unavailable Unavailable Norman, Socorro Fraser MD Unavailable Unavailable Norman, Socorro Fraser MD Unavailable Unavailable Mana, Socorro Fraser MD Unavailable Unavailable EBERL, A LEONARD Unavailable Unavailable Scordo, M Tanya PA Unavailable Unavailable Scordo, M Tanya PA Unavailable Unavailable Scordo, M Tanya PA Unavailable Unavailable Scordo, M Tanya PA Unavailable Unavailable Scordo, M Tanya PA Unavailable Unavailable Scordo, M Tanya PA Unavailable Unavailable Scordo, M Tanya PA Unavailable Unavailable Scordo, M Tanya PA Unavailable Unavailable Scordo, M Tanya PA Unavailable Unavailable Scordo, M Tanya PA Unavailable Unavailable Scordo, M Tanya PA Unavailable Unavailable Scordo, M Tanya PA Unavailable Unavailable Scordo, M Tanya PA Unavailable Unavailable Scordo, M Tanya PA Unavailable Unavailable Scordo, M Tanya PA Unavailable Unavailable Scordo, M Tanya PA Unavailable Unavailable Scordo, M Tanya PA Unavailable Unavailable Scordo, M Tanya PA Unavailable Unavailable Scordo, M Tanya PA Unavailable Unavailable Scordo, M Tanya PA Unavailable Unavailable Scordo, M Tanya PA Unavailable Unavailable Scordo, M Tanya PA Unavailable Unavailable Scordo, M Tanya PA Unavailable Unavailable Scordo, M Tanya PA Unavailable Unavailable Scordo, M Tanya PA Unavailable Unavailable Scordo, M Tanya PA Unavailable Unavailable Scordo, M Tanya PA Unavailable Unavailable Scordo, M Tanya PA Unavailable Unavailable Scordo, M Tanya PA Unavailable Unavailable Scordo, M Tanya PA Unavailable Unavailable Scordo, M Tanya PA Unavailable Unavailable Scordo, M Tanya PA Unavailable Unavailable Scordo, M Tanya PA Unavailable Unavailable Scordo, M Tanya PA Unavailable Unavailable Scordo, M Tanya PA Unavailable Unavailable Scordo, M Tanya PA Unavailable Unavailable Scordo, M Tanya PA Unavailable Unavailable Scordo, M Tanya PA Unavailable Unavailable Scordo, M Tanya PA Unavailable Unavailable Scordo, M Tanya PA Unavailable Unavailable Scordo, M Tanya PA Unavailable Unavailable Scordo, M Tanya PA Unavailable Unavailable Scordo, M Tanya PA Unavailable Unavailable Scordo, M Tanya PA Unavailable Unavailable Scordo, M Tanya PA Unavailable Unavailable Scordo, M Tanya PA Unavailable Unavailable Scordo, M Tanya PA Unavailable Unavailable Maring, Bo PA Unavailable Unavailable Maring, Bo PA Unavailable Unavailable Maring, Bo PA Unavailable Unavailable Maring, Bo PA Unavailable Unavailable Maring, Bo PA Unavailable Unavailable Maring, Bo PA Unavailable Unavailable Maring, Bo PA Unavailable Unavailable Maring, Bo PA Unavailable Unavailable Maring, Bo PA Unavailable Unavailable Maring, Bo PA Unavailable Unavailable Maring, Bo PA Unavailable Unavailable Maring, Bo PA Unavailable Unavailable Maring, Bo PA Unavailable Unavailable Maring, Bo PA Unavailable Unavailable Maring, Bo PA Unavailable Unavailable Maring, Bo PA Unavailable Unavailable Swati Hernandez MD Unavailable Unavail able Swati Hernandez MD Unavailable Unavail able Swati Hernandez MD Unavailable Unavail able Swati Hernandez MD Unavailable Unavail able Swati Hernandez MD Unavailable Unavail able Swati Hernandez MD Unavailable Unavail able Swati Hernandez MD Unavailable Unavail able Swati Hernandez MD Unavailable Unavail able Swati Hernandez MD Unavailable Unavail able Swati Hernandez MD Unavailable Unavail able Swati Hernnadez MD Unavailable Unavail able Swati Hernandez MD Unavailable Unavail able Swati Hernandez MD Unavailable Unavail able Swati Hernandez MD Unavailable Unavail able Swati Hernandez MD Unavailable Unavail able Swati Hernandez MD Unavailable Unavail able Swati Hernandez MD Unavailable Unavail able Swati Hernandez MD Unavailable Unavail able Swati Hernandez MD Unavailable Unavail able Nanavati, Swati Hutchison MD Unavailable Unavail able Nanavati, Swati Hutchison MD Unavailable Unavail able Nanavati, Swati Hutchison MD Unavailable Unavail able Nanavati, Swati Hutchison MD Unavailable Unavail able Nanavati, Swati Hutchison MD Unavailable Unavail able Nanavati, Swati Hutchison MD Unavailable Unavail able Nanavati, Swati Hutchison MD Unavailable Unavail able Nanavati, Swati Hutchison MD Unavailable Unavail able Nanavati, Swati Hutchison MD Unavailable Unavail able Nanavati, Swati Hutchison MD Unavailable Unavail able Nanavati, Swati Hutchison MD Unavailable Unavail able Nanavati, Swati Hutchison MD Unavailable Unavail able Nanavati, Swati Hutchison MD Unavailable Unavail able Nanavati, Swati Hutchison MD Unavailable Unavail able Nanavati, Swati Hutchison MD Unavailable Unavail able Nanavati, Swati Hutchison MD Unavailable Unavail able Nanavati, Swati Hutchison MD Unavailable Unavail able Nanavati, Swati Hutchison MD Unavailable Unavail able Nanavati, Swati Hutchison MD Unavailable Unavail able Nanavati, Swati Hutchison MD Unavailable Unavail able Nanavati, Swati Hutchison MD Unavailable Unavail able Nanavati, Swati Hutchison MD Unavailable Unavail able Nanavati, Swati Hutchison MD Unavailable Unavail able Nanavati, Swati Hutchison MD Unavailable Unavail able Nanavati, Swati Hutchison MD Unavailable Unavail able Nanavati, Swati Hutchison MD Unavailable Unavail able Nanavati, Swati Hutchison MD Unavailable Unavail able Nanavati, Swati Hutchison MD Unavailable Unavail able Nanavati, Swati Hutchison MD Unavailable Unavail able Nanavati, Swati Hutchison MD Unavailable Unavail able Nanavati, Swati Hutchison MD Unavailable Unavail able Nanavati, Swati Hutchison MD Unavailable Unavail able Nanavati, Swati Hutchison MD Unavailable Unavail able Nanavati, Bhalchandra Foster MD Unavailable Unavail able Nanavati, Swati Hutchison MD Unavailable Unavail able Nanavati, Swati Hutchison MD Unavailable Unavail able Nanavafabian, Swati Hutchison MD Unavailable Unavail able Nanavafabian, Swati Hutchison MD Unavailable Unavail able Nanavafabian, Swati Hutchison MD Unavailable Unavail able Nanavati, Swati Hutchison MD Unavailable Unavail able Nanavati, Swati Hutchison MD Unavailable Unavail able Nanavati, Swati Hutchison MD Unavailable Unavail able Nanavati, Swati Hutchison MD Unavailable Unavail able Nanavati, Swati Hutchison MD Unavailable Unavail able Nanavati, Swati Hutchison MD Unavailable Unavail able Nanavati, Swati Hutchison MD Unavailable Unavail able Nanavati, Swati Hutchison MD Unavailable Unavail able Nanavati, Swati Hutchison MD Unavailable Unavail able Nanavati, Swati Hutchison MD Unavailable Unavail able Nanavati, Swati Hutchison MD Unavailable Unavail able Nanavati, Swati Hutchison MD Unavailable Unavail able Nanavati, Swati Hutchison MD Unavailable Unavail able Nanzaneti, Swati Hutchison MD Unavailable Unavail able Mary, Swati Hutchison MD Unavailable Unavail able Mary, Swati Hutchison MD Unavailable Unavail able Mary, Swati Hutchison MD Unavailable Unavail able Mary, Swati Hutchison MD Unavailable Unavail able Jordana BRASWELL MD Unavailable Unavailable Jordana BRASWELL MD Unavailable Unavailable Jordana BRASWELL MD Unavailable Unavailable Jordana BRASWELL MD Unavailable Unavailable Jordana BRASWELL MD Unavailable Unavailable Jordana BRASWELL MD Unavailable Unavailable Jordana BRASWELL MD Unavailable Unavailable Jordana BRASWELL MD Unavailable Unavailable Jordana BRASWELL MD Unavailable Unavailable Jordana BRASWELL MD Unavailable Unavailable Jordana BRASWELL MD Unavailable Unavailable Jordana BRASWELL MD Unavailable Unavailable Jordana BRASWELL MD Unavailable Unavailable Jordana BRASWELL MD Unavailable Unavailable Jordana BRASWELL MD Unavailable Unavailable Jordana BRASWELL MD Unavailable Unavailable Jordana BRASWELL MD Unavailable Unavailable Jordana BRASWELL MD Unavailable Unavailable Jordana BRASWELL MD Unavailable Unavailable Jordana BRASWELL MD Unavailable Unavailable Jordana BRASWELL MD Unavailable Unavailable Jordana BRASWELL MD Unavailable Unavailable Jordana BRASWELL MD Unavailable Unavailable Jordana BRASWELL MD Unavailable Unavailable Jordana BRASWELL MD Unavailable Unavailable Jordana BRASWELL MD Unavailable Unavailable Jordana BRASWELL MD Unavailable Unavailable Jordana BRASWELL MD Unavailable Unavailable Jordana BRASWELL MD Unavailable Unavailable Jordana BRASWELL MD Unavailable Unavailable Jordana BRASWELL MD Unavailable Unavailable Jordana BRASWELL MD Unavailable Unavailable Jordana BRASWELL MD Unavailable Unavailable Jordana BRASWELL MD Unavailable Unavailable Jordana BRASWELL MD Unavailable Unavailable Jordana BRASWELL MD Unavailable Unavailable Jordana BRASWELL MD Unavailable Unavailable Jordana BRASWELL MD Unavailable Unavailable Jordana BRASWELL MD Unavailable Unavailable Jordana BRASWELL MD Unavailable Unavailable Jordana BRASWELL MD Unavailable Unavailable Jordana BRASWELL MD Unavailable Unavailable Jordana BRASWELL MD Unavailable Unavailable Jordana BRASWELL MD Unavailable Unavailable Jordana BRASWELL MD Unavailable Unavailable Jordana BRASWELL MD Unavailable Unavailable Jordana BRASWELL MD Unavailable Unavailable Jordana BRASWELL MD Unavailable Unavailable Jordana BRASWELL MD Unavailable Unavailable Jordana BRASWELL MD Unavailable Unavailable Jordana BRASWELL MD Unavailable Unavailable Jordana BRASWELL MD Unavailable Unavailable Jordana BRASWELL MD Unavailable Unavailable Jordana BRASWELL MD Unavailable Unavailable Jordana BRASWELL MD Unavailable Unavailable Jordana BRASWELL MD Unavailable Unavailable Jordana BRASWELL MD Unavailable Unavailable Jordana BRASWELL MD Unavailable Unavailable Jordana BRASWELL MD Unavailable Unavailable Jordana BRASWELL MD Unavailable Unavailable Jordana BRASWELL MD Unavailable Unavailable Jordana BRASWELL MD Unavailable Unavailable Jordana BRASWELL MD Unavailable Unavailable Jordana BRASWELL MD Unavailable Unavailable Jordana BRASWELL MD Unavailable Unavailable Jordana BRASWELL MD Unavailable Unavailable Jordana BRASWELL MD Unavailable Unavailable Jordana BRASWELL MD Unavailable Unavailable Jordana BRASWELL MD Unavailable Unavailable Jordana BRASWELL MD Unavailable Unavailable Jordana BRASWELL MD Unavailable Unavailable MICHAELLE, Jordana MELGAR MD Unavailable Unavailable MICHAELLE, Jordana MELGAR MD Unavailable Unavailable MICHAELLE, Jordana MELGAR MD Unavailable Unavailable MICHAELLE, Jordana MELGAR MD Unavailable Unavailable MICHAELLE, Jordana MELGAR MD Unavailable Unavailable MICHAELLE, Jordana MELGAR MD Unavailable Unavailable MICHAELLE, Jordana MELGAR MD Unavailable Unavailable MICHAELLE, Jordana MELGAR MD Unavailable Unavailable MICHAELLE, Jordana MELGAR MD Unavailable Unavailable MICHAELLE, Jordana MELGAR MD Unavailable Unavailable MICHAELLE, Jordana MELGAR MD Unavailable Unavailable MICHAELLE, Jordana MELGAR MD Unavailable Unavailable MICHAELLE, Jordana MELGAR MD Unavailable Unavailable MICHAELLE, Jordana MELGAR MD Unavailable Unavailable MICHAELLE, Jordana MELGAR MD Unavailable Unavailable MICHAELLE, Jordana MELGAR MD Unavailable Unavailable MICHAELLE, Jordana MELGAR MD Unavailable Unavailable MICHAELLE, Jordana MELGAR MD Unavailable Unavailable MIX, OVI CUMMINS Unavailable Unavailable MIX, OVI CUMMINS Unavailable Unavailable MIX, OVI CUMMINS Unavailable Unavailable MIX, OVI CUMMINS Unavailable Unavailable MIX, OVI CUMMINS Unavailable Unavailable MIX, OVI CUMMINS Unavailable Unavailable MIX, OVI CUMMINS Unavailable Unavailable MIX, OVI CUMMINS Unavailable Unavailable MIX, OVI CUMMINS Unavailable Unavailable MIX, OVI CUMMINS Unavailable Unavailable MIX, OVI CUMMINS Unavailable Unavailable MIX, OVI CUMMINS Unavailable Unavailable MIX, OVI CUMMINS Unavailable Unavailable MIX, OVI CUMMINS Unavailable Unavailable MIX, OVI CUMMINS Unavailable Unavailable MIX, OVI CUMMINS Unavailable Unavailable MIX, OVI CUMMINS Unavailable Unavailable MIX, OVI CUMMINS Unavailable Unavailable MIX, OVI CUMMINS Unavailable Unavailable MIX, OVI CUMMINS Unavailable Unavailable MIX, OVI CUMMINS Unavailable Unavailable MIX, OVI CUMMINS Unavailable Unavailable MIX, OVI CUMMINS Unavailable Unavailable MIX, OVI CUMMINS Unavailable Unavailable MIX, OVI CUMMINS Unavailable Unavailable MIX, OVI CUMMINS Unavailable Unavailable MIX, OVI CUMMINS Unavailable Unavailable MIX, OVI CUMMINS Unavailable Unavailable MIX, OVI CUMMINS Unavailable Unavailable MIX, OVI CUMMINS Unavailable Unavailable MIX, OVI CUMMINS Unavailable Unavailable MIX, OVI CUMMINS Unavailable Unavailable MIX, OVI CUMMINS Unavailable Unavailable MIX, OVI CUMMINS Unavailable Unavailable MIX, OVI CUMMINS Unavailable Unavailable MIX, OVI CUMMINS Unavailable Unavailable MIX, OVI CUMMINS Unavailable Unavailable MIX, OVI CUMMINS Unavailable Unavailable CHÁVEZ, L ELVIA Unavailable Unavailable Ajay MALDONADO Unavailable Unavailable DARCY TENORIO MD Unavailable Unavailable DARCY TENORIO MD Unavailable Unavailable DARCY TENORIO MD Unavailable Unavailable DARCY TENORIO MD Unavailable Unavailable DARCY TENORIO MD Unavailable Unavailable DARCY TENORIO MD Unavailable Unavailable DARCY TENORIO MD Unavailable Unavailable DARCY TENORIO MD Unavailable Unavailable DARCY TENORIO MD Unavailable Unavailable DARCY TENORIO MD Unavailable Unavailable DARCY TENORIO MD Unavailable Unavailable DARCY TENORIO BERNIEJAMEY CUMMINS Unavailable Unavailable TENORIODARCY MCHUGH BERNIEJAMEY CUMMINS Unavailable Unavailable TENORIO, TAVERAS BERNIEJAMEY CUMMINS Unavailable Unavailable TENORIO, TAVERAS BERNIEJAMEY CUMMINS Unavailable Unavailable TENORIO, TAVERAS BERNIEJAMEY CUMMINS Unavailable Unavailable TENORIO, TAVERAS BERNIEJAMEY CUMMINS Unavailable Unavailable TENORIO, TAVERAS BERNIEJAMEY CUMMINS Unavailable Unavailable TENORIO, TAVERAS BERNIEJAMEY CUMMINS Unavailable Unavailable TENORIO TAVERAS BERNIEJAMEY CUMMINS Unavailable Unavailable TENORIO TAVERAS BERNIEJAMEY CUMMINS Unavailable Unavailable TENORIO TAVERAS BERNIEJAMEY CUMMINS Unavailable Unavailable TENORIO TAVERAS BERNIEJAMEY CUMMINS Unavailable Unavailable TENORIO TAVERAS BERNIEJAMEY CUMMINS Unavailable Unavailable TENORIO TAVERAS BERNIEJAMEY CUMMINS Unavailable Unavailable TENORIO TAVERAS BERNIEJAMEY CUMMINS Unavailable Unavailable TENORIO TAVERAS BERNIEJAMEY CUMMINS Unavailable Unavailable TENORIO TAVERAS BERNIEJAMEY CUMMINS Unavailable Unavailable TENORIO TAVERAS BERNIEJAMEY CUMMINS Unavailable Unavailable TENORIO TAVERAS BERNIEJAMEY CUMMINS Unavailable Unavailable TENORIO, TAVERAS BERNIEJAMEY CUMMINS Unavailable Unavailable TENORIO, TAVERAS BERNIEJAMEY CUMMINS Unavailable Unavailable TENORIO, TAVERAS BERNIEJAMEY CUMMINS Unavailable Unavailable TENORIO, TAVERAS BERNIEJAMEY CUMMINS Unavailable Unavailable TENORIODARCY MCHUGH BERNIEJAMEY CUMMINS Unavailable Unavailable TENORIODARCY MCHUGH BERNIEJAMEY CUMMINS Unavailable Unavailable TENORIODARCY MCHUGH BERNIEJAMEY CUMMINS Unavailable Unavailable TENORIODARCY MCHUGH BERNIEJAMEY CUMMINS Unavailable Unavailable TENORIODARCY MCHUGH BERNIEJAMEY CUMMINS Unavailable Unavailable TENORIODARCY MCHUGH BERNIEJAMEY CUMMINS Unavailable Unavailable TENORIODARCY MCHUGH BERNIEJAMEY CUMMINS Unavailable Unavailable DARCY TENORIO BERNIEJAMEY CUMMINS Unavailable Unavailable DARCY TENORIO BERNIEJAMEY CUMMINS Unavailable Unavailable DARCY TENORIO BERNIEJAMEY CUMMINS Unavailable Unavailable DARCY TENORIO BERNIEJAMEY CUMMINS Unavailable Unavailable DARCY TENORIO BERNIEJAMEY CUMMINS Unavailable Unavailable DARCY TENORIO BERNIEJAMEY CUMMINS Unavailable Unavailable Stephen LUBIN Unavailable Unavailable Fernando Yadav MD Unavailable Unavailable Fernando Yadav MD Unavailable Unavailable Fernando Yadav MD Unavailable Unavailable Fernando Yadav MD Unavailable Unavailable Fernando Yadav MD Unavailable Unavailable Fernando Yadav MD Unavailable Unavailable Fernando Yadav MD Unavailable Unavailable Fernando Yadav MD Unavailable Unavailable Fernando Yadav MD Unavailable Unavailable Fernando Yadav MD Unavailable Unavailable Fernando Yadav MD Unavailable Unavailable Fernando Yadav MD Unavailable Unavailable Fernando Yadav MD Unavailable Unavailable Fernando Yadav MD Unavailable Unavailable Fernando Yadav MD Unavailable Unavailable Fernando Yadav MD Unavailable Unavailable Fernando Yadav MD Unavailable Unavailable Fernando Yadav MD Unavailable Unavailable Fernando Yadav MD Unavailable Unavailable Fernando Yadav MD Unavailable Unavailable Fernando Yadav MD Unavailable Unavailable Fernando Yadav MD Unavailable Unavailable Fernando Yadav MD Unavailable Unavailable Fernando Yadav MD Unavailable Unavailable Fernando Yadav MD Unavailable Unavailable Fernando Yadav MD Unavailable Unavailable Fernando Yadav MD Unavailable Unavailable Fernando Yadav MD Unavailable Unavailable Fernando Yadav MD Unavailable Unavailable Fernando Yadav MD Unavailable Unavailable Fernando Yadav MD Unavailable Unavailable Fernando Yadav MD Unavailable Unavailable Fernando Yadav MD Unavailable Unavailable Fernando Yadav MD Unavailable Unavailable Fernando Yadav MD Unavailable Unavailable Fernando Yadav MD Unavailable Unavailable ED, TEST DEFAULT Unavailable Unavailable Giovanny Borja MD Unavailable Unavailable Giovanny Borja MD Unavailable Unavailable Giovanny Borja MD Unavailable Unavailable Giovanny Borja MD Unavailable Unavailable Giovanny Borja MD Unavailable Unavailable Giovanny Borja MD Unavailable Unavailable Giovanny Borja MD Unavailable Unavailable Giovanny Borja MD Unavailable Unavailable Giovanny Borja MD Unavailable Unavailable Giovanny Borja MD Unavailable Unavailable Giovanny Borja MD Unavailable Unavailable Giovanny Borja MD Unavailable Unavailable Giovanny Borja MD Unavailable Unavailable Giovanny Borja MD Unavailable Unavailable Giovanny Borja MD Unavailable Unavailable Giovanny Borja MD Unavailable Unavailable Giovanny Borja MD Unavailable Unavailable Giovanny Borja MD Unavailable Unavailable Giovanny Borja MD Unavailable Unavailable Giovanny Borja MD Unavailable Unavailable Giovanny Borja MD Unavailable Unavailable Giovanny Borja MD Unavailable Unavailable Giovanny Borja MD Unavailable Unavailable Giovanny Borja MD Unavailable Unavailable Giovanny Borja MD Unavailable Unavailable Giovanny Borja MD Unavailable Unavailable Giovanny Borja MD Unavailable Unavailable Giovanny Bojra MD Unavailable Unavailable Sarah FELIX Unavailable Unavailable Enedelia Montero MD Unavailable Unavailable Enedelia Montero MD Unavailable Unavailable Enedelia Montero MD Unavailable Unavailable Varki, M Rajiv MD Unavailable Unavailable Varki, M Rajiv MD Unavailable Unavailable Varki, M Rajiv MD Unavailable Unavailable Varki, M Rajiv MD Unavailable Unavailable Varki, M Rajiv MD Unavailable Unavailable Varki, M Rajiv MD Unavailable Unavailable Varki, M Rajiv MD Unavailable Unavailable Varki, M Rajiv MD Unavailable Unavailable Varki, M Rajiv MD Unavailable Unavailable Varki, M Rajiv MD Unavailable Unavailable Varki, M Rajiv MD Unavailable Unavailable Varki, M Rajiv MD Unavailable Unavailable Varki, M Rajiv MD Unavailable Unavailable Varki, M Rajiv MD Unavailable Unavailable Varki, M Rajiv MD Unavailable Unavailable Varki, M Rajiv MD Unavailable Unavailable Varki, M Rajiv MD Unavailable Unavailable Varki, M Rajiv MD Unavailable Unavailable Varki, M Rajiv MD Unavailable Unavailable Varki, M Rajiv MD Unavailable Unavailable Varki, M Rajiv MD Unavailable Unavailable Varki, M Rajiv MD Unavailable Unavailable Varki, M Rajiv MD Unavailable Unavailable Varki, M Rajiv MD Unavailable Unavailable Varki, M Rajiv MD Unavailable Unavailable Varki, M Rajiv MD Unavailable Unavailable Varki, M Rajiv MD Unavailable Unavailable Varki, M Rajiv MD Unavailable Unavailable Varki, M Rajiv MD Unavailable Unavailable Varki, M Rajiv MD Unavailable Unavailable Varki, M Rajiv MD Unavailable Unavailable Varki, M Rajiv MD Unavailable Unavailable Varki, M Rajiv MD Unavailable Unavailable Varki, M Rajiv MD Unavailable Unavailable Varki, M Rajiv MD Unavailable Unavailable Varki, M Rajiv MD Unavailable Unavailable Varki, M Rajiv MD Unavailable Unavailable Varki, M Rajiv MD Unavailable Unavailable Varki, M Rajiv MD Unavailable Unavailable Varki, M Rajiv MD Unavailable Unavailable Varki, M Rajiv MD Unavailable Unavailable Varki, M Rajiv MD Unavailable Unavailable Varki, M Raijv MD Unavailable Unavailable Varki, M Rajiv MD Unavailable Unavailable EUGENIA CRUZ Unavailable Unavailable SPENCER, Deonna NOLBERTO Unavailable Unavailable EAANGEL, Saad BEY Unavailable Unavailable Sivapiragasam, Abiramjuliana CUMMINS Unavailable Unavailable Sivapiragasam, Abiramjuliana MD Unavailable Unavailable Sivapiragasam, Abirami MD Unavailable Unavailable Sivapiragasam, Abirami MD Unavailable Unavailable Sivapiragasam, Abirami MD Unavailable Unavailable Sivapiragasam, Abirami MD Unavailable Unavailable Sivapiragasam, Abirami MD Unavailable Unavailable Sivapiragasam, Abirami MD Unavailable Unavailable Sivapiragasam, Abirami MD Unavailable Unavailable Sivapiragasam, Abirami MD Unavailable Unavailable Sivapiragasam, Abirami MD Unavailable Unavailable Sivapiragasam, Abirami MD Unavailable Unavailable Sivapiragasam, Abirami MD Unavailable Unavailable Sivapiragasam, Abirami MD Unavailable Unavailable Sivapiragasam, Abirami MD Unavailable Unavailable Sivapiragasam, Abirami MD Unavailable Unavailable Sivapiragasam, Abirami MD Unavailable Unavailable Sivapiragasam, Abirami MD Unavailable Unavailable Sivapiragasam, Abirami MD Unavailable Unavailable Sivapiragasam, Abirami MD Unavailable Unavailable Sivapiragasam, Abirami MD Unavailable Unavailable Sivapiragasam, Abirami MD Unavailable Unavailable Sivapiragasam, Abirami MD Unavailable Unavailable Sivapiragasam, Abirami MD Unavailable Unavailable Sivapiragasam, Abirami MD Unavailable Unavailable Sivapiragasam, Abirami MD Unavailable Unavailable Sivapiragasam, Abirami MD Unavailable Unavailable Sivapiragasam, Abirami MD Unavailable Unavailable Sivapiragasam, Abirami MD Unavailable Unavailable Sivapiragasam, Abirami MD Unavailable Unavailable Sivapiragasam, Abirami MD Unavailable Unavailable Sivapiragasam, Abirami MD Unavailable Unavailable Sivapiragasam, Abirami MD Unavailable Unavailable Sivapiragasam, Abirami MD Unavailable Unavailable Sivapiragasam, Abirami MD Unavailable Unavailable Sivapiragasam, Abirami MD Unavailable Unavailable Sivapiragasam, Abirami MD Unavailable Unavailable Sivapiragasam, Abirami MD Unavailable Unavailable Sivapiragasam, Abirami MD Unavailable Unavailable Sivapiragasam, Abirami MD Unavailable Unavailable Sivapiragasam, Abirami MD Unavailable Unavailable Sivapiragasam, Abirami MD Unavailable Unavailable Sivapiragasam, Abirami MD Unavailable Unavailable Sivapiragasam, Abirami MD Unavailable Unavailable Sivapiragasam, Abirami MD Unavailable Unavailable Sivapiragasam, Abirami MD Unavailable Unavailable Devyn aTlbot MD Unavailable Unavailable Devyn Talbot MD Unavailable Unavailable Devyn Talbot MD Unavailable Unavailable Devyn Talbot MD Unavailable Unavailable Devyn Talbot MD Unavailable Unavailable Devyn Talbot MD Unavailable Unavailable AMEE CAZARES MD Unavailable Unavailable AMEE CAZARES MD Unavailable Unavailable AMEE CAZARES MD Unavailable Unavailable AMEE CAZARES MD Unavailable Unavailable AMEE CAZARES MD Unavailable Unavailable AMEE CAZARES MD Unavailable Unavailable AMEE CAZARES MD Unavailable Unavailable AMEE CAZARES MD Unavailable Unavailable AMEE CAZARES MD Unavailable Unavailable AMEE CAZARES MD Unavailable Unavailable AMEE CAZARES MD Unavailable Unavailable AMEE CAZARES MD Unavailable Unavailable AMEE CAZARES MD Unavailable Unavailable AMEE CAZARES MD Unavailable Unavailable AMEE CAZARES MD Unavailable Unavailable AMEE CAZARES MD Unavailable Unavailable AMEE CAZARES MD Unavailable Unavailable AMEE CAZARES MD Unavailable Unavailable Lucille Cheng MD Unavailable Unavailable Lucille Cheng MD Unavailable Unavailable Lucille Cheng MD Unavailable Unavailable Lucille Cheng MD Unavailable Unavailable Lucille Cheng MD Unavailable Unavailable Lucille Cheng MD Unavailable Unavailable Lucille Cheng MD Unavailable Unavailable Lucille Cheng MD Unavailable Unavailable Lucille Cheng MD Unavailable Unavailable Lucille Cheng MD Unavailable Unavailable Lucille Cheng MD Unavailable Unavailable Lucille Cheng MD Unavailable Unavailable Lucille Cheng MD Unavailable Unavailable Lucille Cheng MD Unavailable Unavailable Lucille Cheng MD Unavailable Unavailable Lucille Cheng MD Unavailable Unavailable Lucille Cheng MD Unavailable Unavailable Lucille Cheng MD Unavailable Unavailable Lucille Cheng MD Unavailable Unavailable Lucille Cheng MD Unavailable Unavailable Lucille Cheng MD Unavailable Unavailable Lucille Cheng MD Unavailable Unavailable Lucille Cheng MD Unavailable Unavailable Lucille Cheng MD Unavailable Unavailable Lucille Cheng MD Unavailable Unavailable Lucille Cheng MD Unavailable Unavailable Lucille Cheng MD Unavailable Unavailable Lucille Cheng MD Unavailable Unavailable Lucille Cheng MD Unavailable Unavailable Lucille Cheng MD Unavailable Unavailable Lucille Cheng MD Unavailable Unavailable Lucille Cheng MD Unavailable Unavailable Lucille Cheng MD Unavailable Unavailable Lucille Cheng MD Unavailable Unavailable Lucille Cheng MD Unavailable Unavailable Lucille Cheng MD Unavailable Unavailable Lucille Cheng MD Unavailable Unavailable Lucille Cheng MD Unavailable Unavailable Lucille Cheng MD Unavailable Unavailable Lucille Cheng MD Unavailable Unavailable Lucille Cheng MD Unavailable Unavailable Lucille Cheng MD Unavailable Unavailable Lucille Cheng MD Unavailable Unavailable Lucille Cheng MD Unavailable Unavailable Lucille Cheng MD Unavailable Unavailable Lucille Cheng MD Unavailable Unavailable Lucille Cheng MD Unavailable Unavailable Lucille Cheng MD Unavailable Unavailable Lucille Cheng MD Unavailable Unavailable Lucille Cheng MD Unavailable Unavailable Lucille Cheng MD Unavailable Unavailable Lucille Cheng MD Unavailable Unavailable Lucille Cheng MD Unavailable Unavailable Lucille Cheng MD Unavailable Unavailable Lucille Cheng MD Unavailable Unavailable Lucille Cheng MD Unavailable Unavailable Lucille Cheng MD Unavailable Unavailable Lucille Cheng MD Unavailable Unavailable Lucille Cheng MD Unavailable Unavailable Lucille Cheng MD Unavailable Unavailable Lucille Cheng MD Unavailable Unavailable Lucille Cheng MD Unavailable Unavailable Lucille Cheng MD Unavailable Unavailable Lucille Cheng MD Unavailable Unavailable Lucille Cheng MD Unavailable Unavailable Lucille Cheng MD Unavailable Unavailable Lucille Cheng MD Unavailable Unavailable Lucille Cheng MD Unavailable Unavailable Lucille Cheng MD Unavailable Unavailable Lucille Cheng MD Unavailable Unavailable Lucille Cheng MD Unavailable Unavailable Lucille Cheng MD Unavailable Unavailable Lucille Cheng MD Unavailable Unavailable Lucille Cheng MD Unavailable Unavailable Lucille Cheng MD Unavailable Unavailable Lucille Cheng MD Unavailable Unavailable Lucille Cheng MD Unavailable Unavailable Lucille Cheng MD Unavailable Unavailable Lucille Cheng MD Unavailable Unavailable Lucille Cheng MD Unavailable Unavailable Lucille Cheng MD Unavailable Unavailable Lucille Cheng MD Unavailable Unavailable Lucille Cheng MD Unavailable Unavailable Lucille Cheng MD Unavailable Unavailable Lucille Cheng MD Unavailable Unavailable Lucille Cheng MD Unavailable Unavailable Lucille Cheng MD Unavailable Unavailable Lucille Cheng MD Unavailable Unavailable Lucille Cheng MD Unavailable Unavailable Lucille Cheng MD Unavailable Unavailable Lucille Cheng MD Unavailable Unavailable Lucille Cheng MD Unavailable Unavailable Lucille Cheng MD Unavailable Unavailable Sarah ARCEO Unavailable Unavailable RENATO KHOURY Unavailable Unavailable OZDEN, NURI Unavailable Unavailable OZDEN, NURI Unavailable Unavailable OZDEN, NURI Unavailable Unavailable OZDEN, NURI Unavailable Unavailable OZDEN, NURI Unavailable Unavailable OZDEN, NURI Unavailable Unavailable OZDEN, NURI Unavailable Unavailable OZDEN, NURI Unavailable Unavailable OZDEN, NURI Unavailable Unavailable OZDEN, NURI Unavailable Unavailable OZDEN, NURI Unavailable Unavailable OZDEN, NURI Unavailable Unavailable OZDEN, NURI Unavailable Unavailable OZDEN, NURI Unavailable Unavailable OZDEN, NURI Unavailable Unavailable OZDEN, NURI Unavailable Unavailable OZDEN, NURI Unavailable Unavailable OZDEN, NURI Unavailable Unavailable OZDEN, NURI Unavailable Unavailable OZDEN, NURI Unavailable Unavailable OZDEN, NURI Unavailable Unavailable OZDEN, NURI Unavailable Unavailable OZDEN, NURI Unavailable Unavailable OZDEN, NURI Unavailable Unavailable OZDEN, NURI Unavailable Unavailable OZDEN, NURI Unavailable Unavailable OZDEN, NURI Unavailable Unavailable OZDEN, NURI Unavailable Unavailable OZDEN, NURI Unavailable Unavailable OZDEN, NURI Unavailable Unavailable OZDEN, NURI Unavailable Unavailable OZDEN, NURI Unavailable Unavailable OZDEN, NURI Unavailable Unavailable OZDEN, NURI Unavailable Unavailable OZDEN, NURI Unavailable Unavailable OZDEN, NURI Unavailable Unavailable OZDEN, NURI Unavailable Unavailable OZDEN, NURI Unavailable Unavailable OZDEN, NURI Unavailable Unavailable OZDEN, NURI Unavailable Unavailable OZDEN, NURI Unavailable Unavailable OZDEN, NURI Unavailable Unavailable OZDEN, NURI Unavailable Unavailable OZDEN, NURI Unavailable Unavailable OZDEN, NURI Unavailable Unavailable OZDEN, NURI Unavailable Unavailable OZDEN, NURI Unavailable Unavailable OZDEN, NURI Unavailable Unavailable OZDEN, NURI Unavailable Unavailable OZDEN, NURI Unavailable Unavailable OZDEN, NURI Unavailable Unavailable ROTONDI, E EZEQUIEL Unavailable Unavailable Re-disclosure Warning The records that you are about to access may contain information from federally-assisted alcohol or drug abuse programs. If such information is present, then the following federally mandated warning applies: This information has been disclosed to you from records protected by federal confidentiality rules (42 CFR part 2). The federal rules prohibit you from making any further disclosure of this information unless further disclosure is expressly permitted by the written consent of the person to whom it pertains or as otherwise permitted by 42 CFR part 2. A general authorization for the release of medical or other information is NOT sufficient for this purpose. The Federal rules restrict any use of the information to criminally investigate or prosecute any alcohol or drug abuse patient.The records that you are about to access may contain highly sensitive health information, the redisclosure of which is protected by Article 27-F of the [place] State Public Health law. If you continue you may have access to information: Regarding HIV / AIDS; Provided by facilities licensed or operated by the [facility] Office of Mental Health; or Provided by the [facility] Office for People With Developmental Disabilities. If such information is present, then the following [facility] mandated warning applies: This information has been disclosed to you from confidential records which are protected by state law. State law prohibits you from making any further disclosure of this information without the specific written consent of the person to whom it pertains, or as otherwise permitted by law. Any unauthorized further disclosure in violation of state law may result in a fine or snf sentence or both. A general authorization for the release of medical or other information is NOT sufficient authorization for further disc losure. Allergies and Adverse Reactions Type Description Substance Reaction Status Data Source(s ) Chantix & Bactrim Chantix & Bactrim Chantix & Bactrim acti ve [facility] ([facility]) Drug allergy CHANTIX CHANTIX [facility] Drug allergy BACTRIM BACTRIM [facility] Propensity to adverse reactions SULFAMETHOXAZOLE-TRIMETHOPRI M SULFAMETHOXAZOLE-TRIMETHOPRIM Rash [facility] Drug allergy VARENICLINE TARTRATE VARENICLINE TARTRATE [facility] Family History Family Member Name Family Member Gender Family Member Status Date o f Status Description Data Source(s) Unknown Male Problem [facility] ([facility]) Unknown Unknown Encounters Encounter Providers Location Date Indications Data Source(s ) Outpatient Attender: Giovanny Borja MDReferrer: Giovanny murry MD 04/30/2022 12:00:00 AM [facility] Outpatient Attender: Giovanny Borja MDReferrer: Giovanny murry MD 04/30/2022 12:00:00 AM [facility] Outpatient Referrer: Giovanny Borja MD 10/07/2021 12:00:00 AM [facility] Outpatient Attender: Devyn Talbot MD 05/22/2021 1 2:00:00 AM [facility] Outpatient Attender: AJ Santos er: Aj Mccullough MDReferrer: Giovanny Borja MD 05/21/2021 12:00:[address] [facility] Outpatient Referrer: NOLBERTO PALMER 05/14/2021 12:00:00 AM [facility] Out[facility] Attender: DARIUS KOCHReferrer: NOLBERTO SPENCER 05/12/2021 12:00:00 AM [facility] Outpatient Attender: AJ Santos er: Aj Mccullough MDReferrer: Giovanny Borja MD 05/05/2021 12:00:[address] [facility] Outpatient Attender: EUGENIA Marshallender: DEFAULT ED 05/01/2021 12:00:00 AM EDT [facility] Outpatient Attender: Rajiv Montero MDReferrer: SUMAN CAZARES MD [id number] 04/28/2021 02:23:40 PM EDT [facility] Outpatient Attender: Juanis Valles/[place] ndl 04/25/2021 11:00:00 AM EDT [facility] ([facility] Outpatient Attender: Giovanny Borja MDReferrer: Giovanny murry MD [id number] 04/22/2021 12:00:00 AM EDT - 04/22/2021 12:18:53 PM [facility] Outpatient Attender: Giovanny Borja MDReferrer: Giovanny murry MD 04/22/2021 12:00:00 AM EDT Malignant neoplasm of overlapping sites of left female breast [facility] Malignant neoplasm of overlapping sites of left female breast Outpatient Attender: BEAU MALDONADO 04/10/2021 12:00:00 AM T [facility] Outpatient Attender: AJ Alexis-RONCACTR 04/07/2021 10:41:47 AM [facility] Outpatient Attender: Devyn Talbot MD [id number] 04/02/2021 12:00:00 AM EDT - 04/02/2021 02:25:59 PM EDT Malignant neoplasm of overlapping sites of left female breast [facility] Malignant neoplasm of overlapping sites of left female breast Outpatient Attender: Aj Quinn anne: AJ MCCULLOUGHReferrer: Giovanny Borja MD [facility] 04/02/2021 12:00:[address] [facility] ct sim Outpatient Attender: BERNIE TENORIO MDReferrer: Giovanny Adkins 04/01/2021 12:00:[address] [facility] ct sim Outpatient Attender: Aj Quinn anne: AJ MCCULLOUGHReferrer: Giovanny Borja MD [facility] 03/26/2021 12:00:[address]T ct [facility] ct sim Outpatient Attender: OVI DELONG MDReferrer: Giovanny Borja MD [facility] 03/24/2021 12:00:[address] [facility] ct sim Outpatient Attender: BERNIE TENORIO MDReferrer: Giovanny Adkins 03/20/2021 12:00:[address] [facility] ct sim Outpatient Attender: BERNIE TENORIO MDReferrer: Giovanny Adkins 03/19/2021 12:00:00 AM EDT [facility] ct sim Outpatient Attender: Devyn Talbot MD 03/19/2021 1 2:00:00 [facility] [address] [place] [id number], Ph. Attender: Tanya CHAWLA [facility] Medical 03/18/2021 12:00:00 AM EDT [facility] ([facility]) Outpatient Attender: Aj sosaer: AJ MCCULLOUGHReferrer: Giovanny Borja MD [facility] 03/12/2021 12:00:[address] [facility] ct sim Outpatient Referrer: Giovanny Borja MD 03/10/2021 12:00:00 AM EDT [facility] ct sim Outpatient Attender: AJ Santos er: Aj Mccullough MDReferrer: Giovanny Borja MD [facility] 03/05/2021 12:00:[address] [facility] ct sim MONA HuffC: [address], [place] [address], Ph. Attender: Tanya CHAWLA [facility] 03/03/2021 12:00:00 AM EDT [facility] ([facility]) MONA HuffC: [address], [place] [id number], Ph. Attender: Tanya CHAWLA [facility] 03/03/2021 12:00:00 AM EDT [facility] ([facility]) Outpatient Attender: BERNIE TENORIO MDReferrer: Giovanny Adkins 03/03/2021 12:00:00 AM EDT [facility] sim Outpatient Attender: Devyn Talbot MD 02/27/2021 1 2:00:00 AM [facility] Outpatient Attender: Aj Quinn anne: AJ MCCULLOUGHReferrer: Giovanny Borja MD 02/26/2021 12:00:[address] [facility] ct sim Outpatient Attender: Devyn Talbot MD 02/20/2021 1 2:00:00 AM [facility] Outpatient Attender: Aj Quinn anne: AJ MCCULLOUGHReferrer: Giovanny Borja MD [address] [place] [address] 02/19/2021 12:00:[address] [facility] ct sim Outpatient Referrer: NOLBERTO PALMER 02/18/2021 12:00 :00 AM EDT Malignant neoplasm of overlapping sites of left female breast [facility] Malignant neoplasm of overlapping sites of left female breast Outpatient Attender: AJ Santos er: Aj BRANDONeferrer: Giovanny Borja MD 02/12/2021 12:00:[address] [facility] ct sim Outpatient Referrer: Giovanny Borja MD 02/06/2021 12:00:00 AM EDT [facility] ct sim Outpatient Attender: Aj sosaer: AJ MCCULLOUGHReferrer: Giovanny Borja MD [address] [place] [address] 02/05/2021 12:00:[address]T [address] [facility] ct sim Outpatient 01/30/2021 12:00:00 AM [facility] Outpatient Attender: AJ Santos er: Aj Mccullough MDReferrer: Giovanny Borja MD [address] [place] [address] 01/29/2021 12:00:00 AM EDT - 01/29/2021 02:34:17 PM EDT [facility] ct [facility] Outpatient 01/29/2021 12:00:00 AM [facility] Outpatient Attender: AJ MCCULLOUGHReftomaser: Giovanny Borja MD [address] [place] [address] 01/20/2021 12:00:00 AM EDT [facility] Outpatient Attender: AJ MCCULLOUGHReferrer: Giovanny Borja MD [address] [place] [address] 01/15/2021 12:00:00 AM EDT - 01/15/2021 03:17:51 PM EDT Malignant neoplasm of overlapping sites of left female [facility] Malignant neoplasm of overlapping sites of left female breast Outpatient Attender: Ovi Adair MD 01/14/2021 12:00:0 0 AM [facility] Outpatient Attender: ALLA JIMENEZ 01/09/2021 12:0 0:00 AM EDT Malignant neoplasm of overlapping sites of left female breast [facility] Malignant neoplasm of overlapping sites of left female breast Outpatient Referrer: Giovanny Borja MD 01/07/2021 12:00:00 AM EDT [facility] ct sim [place] [address] [facility] [address] 01/07/2021 12:00:00 AM EDT eCW1 ([facility]) Outpatient Attender: Aj sosaer: AJ MCCULLOUGHReferrer: Giovanny Borja MD A-RONCACTR 01/02/2021 12:00:00 AM EDT - 01/03/2021 09:36:55 AM EDT [facility] ct sim Outpatient 01/02/2021 12:00:00 AM EDT [facility] ([id number]) For [employer] [address] [place] [address] 12/31/2020 12:00:00 AM EDT eCW1 ([facility]) Outpatient Referrer: DARIUS KOCH 12/30/2020 12:00:00 AM EDT [facility] Outpatient Attender: AJ MCCULLOUGHReferrer: Tyrone Cheng MD 0 [id number] 12/27/2020 12:00:00 AM EDT - 12/27/2020 12:25:38 PM EDT Malignant neoplasm of overlapping sites of left female breast [facility] Malignant neoplasm of overlapping sites of left female breast Unknown [address] [facility] [address] 12/24/2020 12:00:00 AM EDT eCW1 ([facility]) ([id number]) For [employer] [address] [place] [address] 12/24/2020 12:00:00 AM EDT eCW1 ([facility]) Outpatient Attender: ELVIA CHÁVEZ 021 12:00:00 AM EDT - 12/19/2020 03:41:38 PM EDT Malignant neoplasm of overlapping sites of left female breast [facility] Malignant neoplasm of overlapping sites of left female breast [place]patient [address] [facility] [address] 12/17/2020 12:00:00 AM EDT eCW1 ([facility]) Outpatient Referrer: NOLBERTO PALMER 12/13/2020 12:00 :00 AM EDT Encounter for therapeutic drug level monitoring [facility] Encounter for therapeutic drug level mon itoring Outpatient [address] [facility] [address] 12/03/2020 12:00:00 AM EDT eCW1 ([facility]) Outpatient Attender: MARILEE PAUL [id number] 0 11/29/2020 10:00:03 AM EDT [facility] Outpatient Attender: NOLBERTO PALMER 11/29/2020 12:00:00 AM EDT [facility] Outpatient Attender: Giovanny LangeA-XXHCBCC 11/28 12:00:00 AM EDT - 11/28/2020 03:08:49 PM EDT Malignant neoplasm of overlapping sites of left female breast [facility] Malignant neoplasm of overlapping sites of left female breast Outpatient Attender: Devyn LangeA-ONCCACTR 11/28/2020 12:00:00 AM EDT - 11/29/2020 10:04:31 AM EDT Malignant neoplasm of unspecified site o f left female breast [facility] Malignant neoplasm of unspecified site o f left female breast Outpatient Attender: AJ Collinser: Giovanny LangeA-RONCACTR 11/28/2020 12:00:00 AM EDT - 11/28/2020 03:24:36 PM EDT Malignant neoplasm of overlapping sites of left female breast [facility] Malignant neoplasm of overlapping sites of left female breast Outpatient Attender: AJ Collinser: Giovanny Borja MD 11/28/2020 12:00:00 AM EDT Malignant neoplasm of overlapping sites of left female breast [facility] Malignant neoplasm of overlapping sites of left female breast Outpatient Attender: Giovanny Borja MD 11/19/2020 12:00:00 AM EDT [facility] Unknown [address] [facility], [facility] [address] 11/18/2020 12:00:00 AM EDT eCW1 ([facility]) MONA HuffC: [address] [place] [address], Ph. Attender: Tanya CHAWLA [facility] 11/15/2020 12:00:00 AM EDT REZA ([facility]) Tanya Mcintosh PA-C: [address] [place] [address], Ph. Attender: Tanya CHAWLA [facility] 11/15/2020 12:00:00 AM EDT REZA ([facility]) Tanya Mcintosh PA-C: [address], [place] [address], Ph. Attender: Tanya CHAWLA [facility] 11/15/2020 12:00:00 AM EDT VENICE ([facility]) Outpatient Attender: NOLBERTO PALMER 11/14/2020 12:00:00 AM EDT [facility] Outpatient Attender: Rajiv BRANDONeferrer: SUMAN CAZARES MD [id number] 11/12/2020 11:28:16 AM EDT [facility] Outpatient Attender: NOLBERTO PALMER 11/08/2020 12:00:00 AM [facility] Outpatient Attender: MARILEE PAUL [id number] 0 11/06/2020 11:43:13 AM [facility] Outpatient Attender: Devyn Talbot MD 11/06/2020 1 2:00:00 AM EDT [facility] Outpatient Attender: AJ MCCULLOUGHReferrer: Giovanny Borja MD 11/01/2020 12:00:00 AM EDT Malignant neoplasm of overlapping sites of left female breast [facility] Malignant neoplasm of overlapping sites of left female breast Tanya Mcintosh PA-C: [address], [place] [address], Ph. Attender: Tanya CHAWLA [facility] 10/31/2020 12:00:00 AM EDT [facility]) Tanya Mcintosh PA-C: [address], [place] [address], Ph. Attender: Tanya CHAWLA [facility] 10/31/2020 12:00:00 AM EDT [facility]) Tanya Mcintosh PA-C: [address], [place] [address], Ph. Attender: Tanya CHAWLA [facility] 10/31/2020 12:00:00 AM EDT [facility] ([facility]) Tanya Mcintosh PA-C: [address], [place] [address], Ph. Attender: Tanya CHAWLA [facility] 10/31/2020 12:00:00 AM EDT [facility] ([facility]) Tanya Mcintosh PA-C: [address], [place] [address], Ph. Attender: Tanya CHAWLA [facility] 10/31/2020 12:00:00 AM EDT [facility] ([facility]) Tanya Mcintosh PA-C: [address], [place] [address], Ph. Attender: Tanya CHAWLA [facility] 10/31/2020 12:00:00 AM EDT [facility] ([facility]) Outpatient Attender: SOTERO TELLEZReferrer: NOLBERTO PALMER 10/29/2020 12:00:00 AM EDT [facility] Outpatient Attender: AJ MCCULLOUGH 2020 12:00:[address] [facility] Outpatient Attender: AJ MCCULLOUGH 2020 12:00:[address] [facility] Outpatient Referrer: NOLBERTO PALMER 2020 12:00:00 AM EDT [facility] Outpatient Referrer: NOLBERTO PALMER 2020 12:00:00 AM EDT [facility] Outpatient Attender: DARIUS KOCHReferrer: Tanya CHAWLA 0 [id number] 10/25/2020 12:00:00 AM EDT - 10/25/2020 02:15:34 PM EDT Other specified diseases of biliary tract [facility] Other specified diseases of biliary trac t Outpatient Attender: Bo CHAWLA 10/20/19 11:51:50 AM EST - 10/19/2020 12:37:17 PM EST DocuTap ([facility] ) Outpatient Attender: Giovanny Borja MD [id number] 10/17 12:00:00 AM EST - 10/17/2020 12:17:38 PM EST Malignant neoplasm of overlapping sites of left female breast [facility] Malignant neoplasm of overlapping sites of left female breast Outpatient Attender: SOTERO TELLEZ 10/15/2020 12:00:00 AM [facility] Outpatient Referrer: NOLBERTO PALMER 10/14/2020 12:00:00 AM [facility] Outpatient Referrer: NOLBERTO PALMER 10/14/2020 12:00:00 AM [facility] Outpatient Referrer: NOLBERTO PALMER 10/14/2020 12:00:00 AM [facility] Outpatient Referrer: NOLBERTO PALMER 10/14/2020 12:00:00 AM [facility] Tanya Mcintosh PA-C: [address], [place] [address], Ph. Attender: Tanya CHAWLA [facility] 10/11/2020 12:00:00 AM EST RE[facility] ([facility]) Tanya Mcintosh PA-C: [address], [place] [address], Ph. Attender: Tanya CHAWLA [facility] 10/11/2020 12:00:00 AM EST RE[facility] ([facility]) Tanya Mcintosh PA-C: [address], [place] [address], Ph. Attender: Tanya CHAWLA [facility] 10/11/2020 12:00:00 AM EST RE[facility] ([facility]) Tanya Mcintosh PA-C: [address], [place] [address], Ph. Attender: Tanya CHAWLA [facility] 10/11/2020 12:00:00 AM EST [facility] ([facility]) Tanya Mcintosh PA-C: [address], [facility] [address], Ph. Attender: Tanya CHAWLA [facility] 10/11/2020 12:00:00 AM EST RE[facility] ([facility]) Tanya Mcintosh PA-C: [address], [facility] [address], Ph. Attender: Tanya CHAWLA [facility] 10/11/2020 12:00:00 AM EST [facility] ([facility]) Tanya Mcintosh PA-C: [address], [place] [address], Ph. Attender: Tanya CHAWLA [facility] 10/11/2020 12:00:00 AM EST [facility] ([facility]) Outpatient 10/08/2020 01:23:08 PM EST - 021 02:30:42 PM EST DocuTap ([facility]) 10/07/2020 12:00:00 AM EST - 021 04:57:29 PM EDT NETSMART ([facility]) Outpatient Attender: Giovanny Person mitter: Giovanny Borja MDReferrer: Giovanny Borja MD 10/02/2020 12:00:00 AM EST Malignant johnie plasm of overlapping sites of left female breast [facility] Malignant neoplasm of overlapping sites of left female breast Outpatient Attender: Giovanny Borja MDAdmitter: Giovanny murry MD [id number] 10/02/2020 12:00:00 AM EST - 10/03/2020 10:35:00 AM EST Acquired absence of left breast and nipple [facility] Acquired absence of left breast and nipp le Patient discharged. Tanya Mcintosh PA-C: [address], [place] [address], Ph. Attender: Tanya CHAWLA [facility] 09/30/2020 12:00:00 AM EST [facility] ([facility]) Tanya Mcintosh PA-C: [address], [place] [address], Ph. Attender: Tanya CHAWLA [facility] 09/30/2020 12:00:00 AM EST RE[facility] ([facility]) Tanya Mcintosh PA-C: [address], [place] [address], Ph. Attender: Tanya CHAWLA [facility] 09/30/2020 12:00:00 AM EST RE[facility] ([facility]) Tanya Mcintosh PA-C: [address], [place] [address], Ph. Attender: Tanya CHAWLA [facility] 09/30/2020 12:00:00 AM EST [facility] ([facility]) Tanya Mcintosh PA-C: [address], [place] [address], Ph. Attender: Tanya CHAWLA [facility] 09/30/2020 12:00:00 AM EST RE[facility] ([facility]) Tanya Mcintosh PA-C: [address], [place] [address], Ph. Attender: Tanya CHAWLA [facility] 09/30/2020 12:00:00 AM EST REZA ([facility]) Tanya Mcintosh PA-C: [address], [place] [address], Ph. Attender: Tanya CHAWLA [facility] 09/30/2020 12:00:00 AM EST REZA ([facility]) Tanya Mcintosh PA-C: [address], [place] [address], Ph. Attender: Tanya CHAWLA [facility] 09/30/2020 12:00:00 AM EST RE[facility] ([facility]) Tanya Mcintosh PA-C: [address], [place] [address], Ph. Attender: Tanya CHAWLA [facility] 09/30/2020 12:00:00 AM EST RE[facility] ([facility]) Outpatient Attender: JOSY Gannonerrer: Giovanny Borja MD [id number] 09/27/2020 12:00:00 AM [facility] Outpatient Attender: Giovanny Borja MD [id number] 09/24/2020 12:00:00 AM [facility] Tanya Mcintosh PA-C: [address], [place] [address], Ph. Attender: Tanya CHAWLA [facility] 09/23/2020 12:00:00 AM EST RE[facility] ([facility]) Tanya Mcintosh PA-C: [address], [place] [address], Ph. Attender: Tanya CHAWLA [facility] 09/23/2020 12:00:00 AM EST [facility] ([facility]) Tanya Mcintosh PA-C: [address], [place] [address], Ph. Attender: Tanya CHAWLA [facility] 09/23/2020 12:00:00 AM EST RE[facility] ([facility]) Tanya Mcintosh PA-C: [address], [place] [address], Ph. Attender: Tanya CHAWLA [facility] 09/23/2020 12:00:00 AM EST REZA ([facility]) Tanya Mcintosh PA-C: [address], [place] [address], Ph. Attender: Tanya CHAWLA [facility] 09/23/2020 12:00:00 AM EST RE[facility] ([facility]) Tanya Mcintosh PA-C: [address], [place] [address], Ph. Attender: Tanya CHAWLA [facility] 09/23/2020 12:00:00 AM EST [facility] ([facility]) Tanya Mcintosh PA-C: [address], [place] [address], Ph. Attender: Tanya CHAWLA [facility] 09/23/2020 12:00:00 AM EST RE[facility] ([facility]) Tanya Mcintosh PA-C: [address], [place] [address], Ph. Attender: Tanya CHAWLA [facility] 09/23/2020 12:00:00 AM EST RE[facility] ([facility]) Tanya Mcintosh PA-C: [address], [place] [address], Ph. Attender: Tanya CHAWLA [facility] 09/23/2020 12:00:00 AM EST [facility] ([facility]) Outpatient Attender: Bo CHAWLA 09/22/19 10:07:46 AM EST - 09/22/2020 10:51:46 AM EST [employer]uTap ([facility] ) Outpatient Attender: SOTERO TELLEZReferrer: NOLBERTO PALMER [id number] 09/17/2020 12:00:00 AM EST - 09/17/2020 12:44:13 PM EST Psychological and behavioral factors associated with disorders or diseases classified elsewhere [facility] Psychological and behavioral factors ass ociated with disorders or diseases classified elsewhere Outpatient Referrer: NOLBERTO PALMER 09/16/2020 12:00 :00 AM EST Malignant neoplasm of unspecified site of left female breast [facility] Malignant neoplasm of unspecified site o f left female breast Tanya Mcintosh PA-C: [address], [place] [address], Ph. Attender: Tanya CHAWLA [facility] 09/16/2020 12:00:00 AM EST [facility] ([facility]) Tanya Mcintosh PA-C: [address], [place] [address], Ph. Attender: Tanya CHAWLA [facility] 09/16/2020 12:00:00 AM EST [facility] ([facility]) Tanya Mcintosh PA-C: [address], [place] [address], Ph. Attender: Tanya CHAWLA [facility] 09/16/2020 12:00:00 AM EST RE[facility] ([facility]) Tanya Micntosh PA-C: [address], [place] [address], Ph. Attender: Tanya CHAWLA [facility] 09/16/2020 12:00:00 AM EST RE[facility] ([facility]) Tanya Mcintosh PA-C: [address], [place] [address], Ph. Attender: Tanya CHAWLA [facility] 09/16/2020 12:00:00 AM EST [facility] ([facility]) Tanya Mcnitosh PA-C: [address], [place] [address], Ph. Attender: Tanya CHAWLA [facility] 09/16/2020 12:00:00 AM EST REZA ([facility]) Tanya Mcintosh PA-C: [address], [place] [address], Ph. Attender: Tanya CHAWLA [facility] 09/16/2020 12:00:00 AM EST REZA ([facility]) Tanya Mcintosh PA-C: [address], [place] [address], Ph. Attender: Tanya CHAWLA [facility] 09/16/2020 12:00:00 AM EST REZA ([facility]) Tanya Mcintosh PA-C: [address], [place] [address], Ph. Attender: Tanya CHAWLA [facility] 09/16/2020 12:00:00 AM EST [facility] ([facility]) Outpatient 09/12/2020 12:00:00 AM [facility] Outpatient 09/12/2020 12:00:00 AM [facility] Outpatient Attender: Giovanny Borja MD [id number] 09/10/2020 12:00:00 AM [facility] Outpatient Attender: NOLBERTO PALMER 09/06/2020 12:00:00 AM [facility] Outpatient 09/06/2020 12:00:00 AM [facility] Outpatient Attender: NOLBERTO PALMER 09/06/2020 12:00:00 AM [facility] Outpatient 09/05/2020 12:00:00 AM [facility] Outpatient Attender: Devyn Alexis-ONCCACTR 09/04/2020 12:00:00 AM [facility] - 09/04/2020 03:28:42 PM EST Malignant neoplasm of unspecified site o f left female [facility] Malignant neoplasm of unspecified site o f left female breast Outpatient Attender: NOLBERTO PALMER 08/30/2020 12:00:00 AM [facility] Outpatient Attender: NOLBERTO PALMER 08/30/2020 12:00:00 AM [facility] Outpatient Attender: SOTERO TELLEZReferrer: NOLBERTO Alexis-PMRREHAB 08/28/2020 12:00:00 AM EST Psychological and behavioral factors ass ociated with disorders or diseases classified elsewhere [facility] Psychological and behavioral factors ass ociated with disorders or diseases classified elsewhere Outpatient Attender: AUBREY LUBIN 08/23/2020 12:0 0:00 AM EST Malignant neoplasm of unspecified site of left female [facility] Malignant neoplasm of unspecified site o f left female breast Outpatient 08/23/2020 12:00:00 AM [facility] Outpatient Attender: LACEY FELIX 08/15/19 12:00:00 AM [facility] - 08/15/2020 04:02:54 PM EST Malignant neoplasm of unspecified site of left female [facility] Malignant neoplasm of unspecified site o f left female breast Outpatient Attender: NOLBERTO Alexis-ONCCACTR 12:00:00 AM EST - 08/08/2020 02:44:16 PM EST Malignant neoplasm of unspecified site o f left female [facility] Malignant neoplasm of unspecified site o f left female breast MONA HuffC: [address] [place] [address], Ph. Attender: Tanya Scordo PA [facility] 07/29/2020 12:00:00 AM EST [facility] ([facility]) Tanya Mcintosh PA-C: [address], [place] [address], Ph. Attender: Tanya CHAWLA [facility] 07/29/2020 12:00:00 AM EST [facility] ([facility]) Tanya Mcintosh PA-C: [address], [place] [address], Ph. Attender: Tanya CHAWLA [facility] 07/29/2020 12:00:00 AM EST [facility] ([facility]) Tanya Mcintosh PA-C: [address], [place] [address], Ph. Attender: Tanya CHAWLA [facility] 07/29/2020 12:00:00 AM EST [facility] ([facility]) Tanya Mcintosh PA-C: [address], [place] [address], Ph. Attender: Tanya CHAWLA [facility] 07/29/2020 12:00:00 AM EST [facility] ([facility]) Tanya Mcintosh PA-C: [address], [place] [address], Ph. Attender: Tanya CHAWLA [facility] 07/29/2020 12:00:00 AM EST [facility] ([facility]) Tayna Mcintosh PA-C: [address], [place] [address], Ph. Attender: Tanya CHAWLA [facility] 07/29/2020 12:00:00 AM EST [facility] ([facility]) Tanya Mcintosh PA-C: [address], [facility] [place] [address], Ph. Attender: Tanya CHAWLA [facility] 07/29/2020 12:00:00 AM EST [facility] ([facility]) Tanya Mcintosh PA-C: [address], [place] [address], Ph. Attender: Tanya CHAWLA [facility] 07/29/2020 12:00:00 AM EST [facility] ([facility]) Tanya Mcintosh PA-C: [address], [place] [address], Ph. Attender: Tanya CHAWLA [facility] 07/29/2020 12:00:00 AM EST [facility] ([facility]) Outpatient 07/25/2020 12:00:00 AM [facility] Outpatient Attender: LE BARON NPAttender: NOLBERTO OROZCO [id number] 07/18/2020 12:00:00 AM EST - 07/18/2020 03:25:57 PM EST Malignant neoplasm of unspecified site of left female breast [facility] Malignant neoplasm of unspecified site o f left female breast [facility]patient [facility] 07/18/20 20 12:00:00 AM EST - 07/18/2020 12:15:35 PM [facility] Outpatient 07/11/2020 12:00:00 AM [facility] Outpatient Attender: Giovanny Borja MD [id number] 07/09 12:00:00 AM EST - 07/09/2020 03:55:56 PM [facility] Outpatient Attender: EZEQUIEL CAREY 07/03/2020 12:00:0 0 AM EST Malignant neoplasm of unspecified site of left female breast [facility] Malignant neoplasm of unspecified site o f left female breast [place] [address] [facility] [place] [address] 06/28/2020 12:00:00 AM EST eCW1 ([facility]) Outpatient Attender: Devyn LangeA-ONCCACTR 06/27/2020 12:00:00 AM EST - 06/27/2020 04:12:52 PM EST Malignant neoplasm of unspecified site o f left female [facility] Malignant neoplasm of unspecified site o f left female breast Outpatient Attender: Giovanny Borja MDReferrer: Giovanny murry MD 06/27/2020 12:00:00 AM EST Malignant neoplasm of unspecified site of left female [facility] Malignant neoplasm of unspecified site o f left female breast Outpatient Attender: Giovanny Borja MDReferrer: Giovanny murry MD [id number] 06/27/2020 12:00:00 AM EST - 06/27/2020 04:19:02 PM EST Malignant neoplasm of unspecified site of left female [facility] Malignant neoplasm of unspecified site o f left female breast Outpatient Attender: Giovanny Borja MDReferrer: Giovanny murry MD 06/27/2020 12:00:00 AM [facility] Outpatient 06/20/2020 12:00:00 AM [facility] Outpatient Attender: MARILEE PAUL [id number] 08/13/2019 11:33:50 AM [facility] Outpatient Attender: LEONARD GARIBAY [id number] 06/13/2020 12:00: 00 AM EST Malignant neoplasm of unspecified site of left female [facility] Malignant neoplasm of unspecified site o f left female breast Outpatient Attender: BI LangeA-XXUHRESP 06/13/20 12:00:00 AM EST - 06/13/2020 10:13:45 AM [facility] Outpatient Attender: MARILEE PAUL [id number] 1 02:43:10 PM [facility] Outpatient Attender: Devyn LangeA-ONCCACTR 06/06/2020 12:00:00 AM EDT - 06/06/2020 08:36:32 AM EDT Malignant neoplasm of unspecified site o f left female [facility] Malignant neoplasm of unspecified site o f left female breast Outpatient Attender: Tanya CHAWLA FP 05/29/2020 07:40:59 AM EDT [facility] Outpatient Attender: Devyn Talbot MDReferr er: Devyn Talbot MD 05/29/2020 12:00:00 AM EDT Malignant neoplasm of unspe cified site of left female [facility] Malignant neoplasm of unspecified site o f left female breast Outpatient Attender: Tanya CHAWLA FP 05/20/2020 09:38:00 AM EDT [facility] Outpatient Attender: MARILEE LangeA-MLTCACTR 1 01:58:51 PM [facility] Outpatient Attender: Devyn Talbot MD [id number] 05/15/2020 12:00:00 AM EDT - 05/15/2020 09:08:52 AM EDT Malignant neoplasm of unspecified site o f left female [facility] Malignant neoplasm of unspecified site o f left female breast Outpatient Attender: RENATO KHOURY [id number] 05/15/20 20 12:00:00 AM EDT - 05/15/2020 12:26:27 PM [facility] Outpatient Attender: Tanya HOLCOMB 05/13/2020 12:46:01 PM EDT [facility] Outpatient Attender: Tanya CHAWLA FP 05/10/2020 12:02:34 AM EDT [facility] Outpatient Attender: Tanya CHAWLA FP 05/09/2020 11:09:01 AM EDT [facility] Outpatient Attender: Tanya HOLCOMB 05/09/2020 09:57:02 AM EDT [facility] Outpatient Attender: Fernando Yadav MD 05/09/2020 12:00:00 AM T [facility] Outpatient Attender: Tanya HOLCOMB 05/08/2020 10:41:02 AM EDT [facility] Outpatient Attender: Foster eHrnandez MD [id number] 12:00:00 AM EDT - 05/07/2020 08:33:16 AM EDT [facility] Outpatient Attender: Tanya CHAWLA FP 04/30/2020 09:05:03 AM EDT [facility] Unknown [address] [address] 04/30/2020 12:00:00 AM EDT eC ([facility]) Outpatient Attender: Tanya CHAWLA FP 04/26/2020 12:02:17 AM EDT [facility] Outpatient Attender: BI SANTOS [id number] 04/25/2020 01:03:31 P M EDT [facility] Outpatient Attender: Tanya CHAWLA FP 04/25/2020 07:12:01 AM EDT [facility] Outpatient Attender: Tanya CHAWLA FP 04/25/2020 12:00:11 AM EDT [facility] Outpatient Attender: Tanya CHAWLA FP 04/24/2020 12:44:01 PM EDT [facility] Outpatient Attender: Tanya CHAWLA FP 04/24/2020 12:44:00 PM EDT [facility] Outpatient Attender: Tanya CHAWLA FP 04/24/2020 11:52:00 AM EDT [facility] Outpatient Attender: Tanya CHAWLA FP 04/24/2020 11:44:00 AM EDT [facility] Outpatient Attender: Tanya CHAWLA FP 04/24/2020 11:42:01 AM EDT [facility] Outpatient Attender: Tanya CHAWLA FP 04/24/2020 11:16:03 AM EDT [facility] Outpatient Attender: Tanya CHAWLA FP 04/24/2020 11:16:01 AM EDT [facility] Outpatient Attender: Tanya CHAWLA FP 04/24/2020 09:56:00 AM EDT [facility] Outpatient Referrer: Giovanny Borja MD 04/22/2020 12: 00:00 AM EDT Malignant neoplasm of central 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 [facility] Malignant neoplasm of central 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 Outpatient Attender: MARILEE PAUL [id number] 04/19/2020 03:08:45 PM EDT [facility] Outpatient Attender: MARILEE PAUL [id number] 04/19/2020 02:34:05 PM EDT [facility] Outpatient Attender: Giovanny Borja MD [id number] 04/19/2020 12: 00:00 AM EDT Malignant neoplasm of central 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 [facility] Malignant neoplasm of central 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 Outpatient Attender: Foster Hernandez MD 04/19/2020 12:00: 00 AM EDT [facility] Outpatient Attender: Juanis Valles/[place] ndl 04/18/2020 09:30:00 AM EDT [facility] ([facility]ice, ) Outpatient Admitter: Marnie Maguire MDReferrer: Marnie Maguire MD 04/12/2020 12:00:00 AM EDT Malignant neoplasm of unspecified site of unspecified female breast [facility] Malignant neoplasm of unspecified site o f unspecified female breast Outpatient Attender: Tanya HOLCOMB 04/09/2020 06:33:57 AM [facility] [address] [address] 04/09/2020 12:00:00 AM EDT eCW1 ([facility]) Outpatient Attender: Tanya HOLCOMB 04/08/2020 09:12:01 AM EDT [facility] Outpatient Attender: Tanya HOLCOMB 04/08/2020 09:11:02 AM EDT [facility] Outpatient Attender: Tanya HOLCOMB 04/05/2020 03:41:08 PM EDT [facility] Outpatient Attender: Tanya HOLCOMB 04/05/2020 03:39:12 PM EDT [facility] Outpatient Attender: TALIA HOLCOMB 04/05/2020 03:30:25 P M EDT [facility] Unknown [address] [address] 04/01/2020 12:00:00 AM EDT eCW1 ([facility]) Outpatient Attender: TALIA HOLCOMB 03/26/2020 09:47:01 A M EDT [facility] Medications Medication Brand Name Start Date Product Form Dose Route Admi nistrative Instructions Pharmacy Instructions Status Indications Reaction Description Data Source(s) letrozole 2.5 MG Oral Tablet Letrozole 2.5 MG Oral Tab let (FEMARA) Letrozole 2.5 MG Oral Tablet (FEMARA) 04/04/2021 12:00:00 AM EDT 2.5 mg Oral active Malignant neoplasm of overlapping sites of left breast in female, estrogen receptor positive Take 1 tablet by mouth daily [facility] Malignant neoplasm of overlapping sites of left breast in female, estrogen receptor positive buspirone hydrochloride 15 MG Oral Table t busPIRone HCl 15 MG Oral Tablet (BUSPAR) busPIRone HCl 15 MG Oral Tablet (BUSPAR) 03/19/2021 12:00:00 AM EDT 15 mg Oral active Take 15 mg by mouth Two Times Daily [facility] gabapentin 600 MG Oral Tablet Gabapentin 600 MG Oral T ablet (NEURONTIN) Gabapentin 600 MG Oral Tablet (NEURONTIN) 03/19/2021 12:00:00 AM EDT 600 mg Oral active Take 600 mg by mouth Three times daily [facility] Trazodone Hydrochloride 100 MG Oral Tabl et traZODone HCl 100 MG Oral Tablet (DESYREL) traZODone HCl 100 MG Oral Tablet (DESYREL) 03/19/2021 12:00: 00 AM EDT 50 mg Oral active Take 50 mg by mo uth nightly [facility] Cholecalciferol 2000 UNT Oral Capsule Vitamin D3 50 MC G (1999 UT) Oral Capsule Vitamin D3 50 MCG (1999 UT) Oral Capsule 03/03/2021 12:00:00 AM EDT Oral active Take by mouth daily [facility] TC-99M labeled red blood cells (ULTRATAG) 02/18/2021 03:00 :00 PM EDT Intravenous completed Intravenous, Once, On Wed02/18/21 at 1500, For 1 dose, Imaging Protocol [facility] Medication administered onsite Fluocinonide 0.5 MG/ML Topical Cream Fluocinonide 0.05 % External Cream (LIDEX) Fluocinonide 0.05 % External Cream (LIDEX) 01/15/2021 12:00:00 AM EDT active Apply to left breast twice daily under Aquaphor [facility] Oxycodone Hydrochloride 10 MG Oral Tablet oxyCODONE HC l 10 MG Oral Tablet oxyCODONE HCl 10 MG Oral Tablet 01/02/2021 12:00:00 AM EDT active TAKE 1 TO 2 TABLETS BY MOUTH EVERY 4 HOURS NEEDED FOR PAIN MAXIMUM DAILY DOSE EIGHT TABLETS [facility] Albuterol Sulfate HFA 108 (90 Base) MCG/ ACT Inhalation Aerosol Solution (PROVENTIL HFA) 6421-0370-88 12/20/2020 12:00:00 AM EDT active INHALE ONE PUFF BY MOUTH EVERY [address] [facility]. Devices (DURABLE MEDICAL EQUIPMENT SEE SIG) XX [facility] [place] [id number] 10/17/2020 12:00:00 AM EST act sarah beth Malignant neoplasm of overlapping sites of left breast in female, estrogen receptor positive Use as directed. 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 female, estrogen receptor positive oxyCODONE HCl 10 MG oxyCODONE HCl 10/08/2020 12:00:00 AM EST completed [facility] ([facility]) Diphenoxylate-Atropine 2.5-0.025 MG Diphenoxylate-Atropine 0 10/07/2020 12:00:00 AM EST completed [facility]SMAR T ([facility]) Gabapentin 400 MG Gabapentin 10/07/2020 12:00:00 AM EST 1.0 {tab let} completed [facility] ([facility]) B Complex B Complex 10/07/2020 12:00:00 AM EST 1.0 {tablet} completed [facility] ([facility]) OxyCODONE HCl 5 MG OxyCODONE HCl 10/07/2020 12:00:00 AM EST completed [facility] ([facility]) Acetaminophen Acetaminophen 10/07/2020 12:00:00 AM EST 325.0 {mg } completed [facility] ([facility]) Vitamin D3 25 MCG Vitamin D3 10/07/2020 12:00:00 AM EST 1.0 {tab let} completed [facility] ([facility]) Topiramate 100 MG Topiramate 10/07/2020 12:00:00 AM EST 1.0 {tab let} completed [facility] ([facility]) Venlafaxine HCl ER 150 MG Venlafaxine HCl ER 10/07/2020 12:00:00 AM EST 1.0 {tablet} completed [facility] ([facility]) One A Day Vitamin One A Day Vitamin 10/07/2020 12:00:00 AM EST 1.0 {tablet} completed [facility] ([facility]) Methadone HCl 5 MG Methadone HCl 10/07/2020 12:00:00 AM EST 1.0 {tablet} completed [facility] ([facility]) Ondansetron HCl 8 MG Ondansetron HCl 10/07/2020 12:00:00 AM EST completed [facility] ([facility]) Hydrocortisone 2.5 % Hydrocortisone 10/07/2020 12:00:00 AM EST completed [facility] ([facility]) Loperamide HCl 2 MG Loperamide HCl 10/07/2020 12:00:00 AM EST completed [facility] ([facility]) TC-99M tilmanocept (LYMPHOSEEK) [id number] 10/02/2020 07:30:00 AM EST Intravenous completed Intravenous, Once, Wed10/02/20 at 0730, For 1 dose, Imaging Protocol [facility] Medication administered onsite iohexol (OMNIPAQUE) 300 MG/ML contrast injection 100 mL 6 09/16/2020 05:30:00 PM EST 100 mL Given by IV completed 100 mL, Given by IV, 1 TIME IMAGING, Wed09/16/20 at 1730, For 1 dose [facility] Medication administered onsite iohexol (OMNIPAQUE) 240 MG/ML contrast 20 mL [id number] 04:30:00 PM EST 20 mL Oral completed 20 mL, Oral, 1 TIME IMAGING, Wed09/16/20 at 1630, For 1 dose, Imaging Protocol
Dilute before administering
[facility] Medication administered onsite iohexol (OMNIPAQUE) 240 MG/ML contrast 20 mL [id number] 03/2021 04:15:39 PM EST 20 mL Oral active 20 mL, Oral, IMG once PRN, Contrast, Starting Wed09/16/20 at 1615, For 1 day, Imaging Protocol
Dilute before administering
[facility] Medication administered onsite Diphenhydramine Hydrochloride 25 MG Oral Capsule diphenhydrAMINE (BENADRYL) capsule 25 mg diphenhydrAMINE (BENADRYL) capsule 25 mg 09/04/2020 12 :45:00 PM EST 25 mg Oral completed Malignant neoplasm of left breast in female, estrogen receptor positive, unspecified site of breast 25 mg, Oral, Once, Wed09/04/20 at 1245, For 1 dose [facility] Malignant neoplasm of left breast in fem [place], estrogen receptor positive, unspecified site of breast Medication administered onsite Acetaminophen 325 MG Oral Tablet acetaminophen (TYLENO L) tablet 650 mg acetaminophen (TYLENOL) tablet 650 mg 09/04/2020 12:30:00 PM EST 65 0 mg Oral completed Malignant neoplasm o f left breast in female, estrogen receptor positive, unspecified site of breast 650 mg, Oral, Onc e, Wed09/04/20 at 1230, For 1 dose
Maximum daily dose of acetaminophen is 3,000 mg from all sources in 24 hours.
[facility] Malignant neoplasm of left breast in fem [place], estrogen receptor positive, unspecified site of breast Medication administered onsite pertuzumab/trastuzumab/hyaluronidase-zzx f (PHESGO) 60-60-2000 MG-MG-U/ML subcutaneous injection 10 mL [id number] 09/04/2020 12:00:00 PM EST 10 mL Subcutaneous completed Malignant neopla sm of left breast in female, estrogen receptor positive, unspecified site of breast 10 mL, S ubcutaneous, Once, Wed09/04/20 at 1200, For 1 dose
For subcutaneous use ONLY. Administer over 5 minutes. Alternate injection site between left and right thigh only.
[facility] Malignant neoplasm of left breast in fem [place], estrogen receptor positive, unspecified site of breast Medication administered onsite Lorazepam 0.5 MG Oral Tablet LORazepam (ATIVAN) tablet 0.5 mg LORazepam (ATIVAN) tablet 0.5 mg 09/04/2020 12:00:00 PM EST 0.5 mg Oral completed Malignant neoplasm of left breast in female, estrogen receptor positive, unspecified site of breast 0.5 mg, Oral, Once, Wed09/04/20 at 1200, For 1 dose [facility] Malignant neoplasm of left breast in fem [place], estrogen receptor positive, unspecified site of breast Medication administered onsite Fluconazole 150 MG Oral Tablet Fluconazole 150 MG Oral Tablet (Diflucan) Fluconazole 150 MG Oral Tablet (Diflucan) 09/04/2020 12:00:00 AM EST 150 mg Oral completed Malignant neopla sm of left breast in female, estrogen receptor positive, unspecified site of breast Take 1 t ablet by mouth once for 1 dose [facility] Malignant neoplasm of left breast in [facility] [place], estrogen receptor positive, unspecified site of breast PACLitaxel-protein bound 175 mg IVPB 08/08/2020 12:15:00 P M EST 100 mg/m2 Intravenous completed Malignant neopla sm of left breast in female, estrogen receptor positive, unspecified site of breast 175 mg ( rounded from 176 mg = 100 mg/m2 1.76 m2 Treatment plan recorded BSA), Intravenous, Administer over 30 Minutes
Once, Yari 08/08/20 at 1215, For 1 dose
Do not filter
[facility] Malignant neoplasm of left breast in [facility] [place], estrogen receptor positive, unspecified site of breast Medication administered onsite pertuzumab/trastuzumab/hyaluronidase-zzx f (PHESGO) 60-60-2000 MG-MG-U/ML subcutaneous injection 10 mL [id number] 08/08/2020 11:45:00 AM EST 10 mL Subcutaneous completed Malignant neopla sm of left breast in female, estrogen receptor positive, unspecified site of breast 10 mL, S ubcutaneous, Once, Yari 08/08/20 at 1145, For 1 dose
For subcutaneous use ONLY. Administer over 5 minutes. Alternate injection site between left and right thigh only.
[facility] Malignant neoplasm of left breast in [facility] [place], estrogen receptor positive, unspecified site of breast Medication administered onsite ondansetron (ZOFRAN) 16 mg in sodium chloride 0.9 % 50 mL (0 .32 mg/mL) IVPB 08/08/2020 11:45:00 AM EST 16 mg Intravenous c ompleted Malignant neoplasm of left breast in female, estrogen receptor positive, unspecified site of breast 16 mg, Intravenous, Once, Yari 08/08/20 a t 1145, For 1 dose [facility] Malignant neoplasm of left breast in [facility] [place], estrogen receptor positive, unspecified site of breast Medication administered onsite dexamethasone (DECADRON) 12 mg in sodium chloride 0.9 % 50 m L IVPB 08/08/2020 11:45:00 AM EST 12 mg Intravenous completed Ma lignant neoplasm of left breast in female, estrogen receptor positive, unspecified site of breast 12 mg, Intravenous, Administer over 15 Minutes, Once, Yari 08/08/20 at 1145, For 1 dose [facility] Malignant neoplasm of left breast in fem [place], estrogen receptor positive, unspecified site of breast Medication administered onsite Lorazepam 0.5 MG Oral Tablet LORazepam (ATIVAN) tablet 0.5 mg LORazepam (ATIVAN) tablet 0.5 mg 08/08/2020 11:45:00 AM EST 0.5 mg Oral completed Malignant neoplasm of left breast in female, estrogen receptor positive, unspecified site of breast 0.5 mg, Oral, Once, Yari 08/08/20 at 1145 , For 1 dose [facility] Malignant neoplasm of left breast in fem [place], estrogen receptor positive, unspecified site of breast Medication administered onsite 24 HR venlafaxine 150 MG Extended Releas e Oral Capsule Venlafaxine HCl ER 150 MG Oral Capsule Extended Release 24 Hour (EFFEXOR-XR) Venlafaxine HCl ER 150 MG Oral Capsule Extended Release 24 Hour (EFFEXOR-XR) 07/29/2020 12:00:00 AM EST active TAKE ONE C APSULE BY MOUTH ONCE DAILY FOR A WEEK CAN INCREASE TO 2 CAPSULES DAILY IF TOLERATING [facility] PACLitaxel-protein bound (ABRAXANE) 175 mg in sodium c hloride 0.9 % 35 mL IVPB 07/18/2020 10:45:00 AM EST 100 mg/m2 Intravenous completed Malignant neoplasm of left breast in female, estrogen receptor positive, unspecified site of breast 175 mg (rounded from 176 mg = 100 mg/m2 1.76 m2 Treatment plan recorded BSA), Intravenous, Administer over 30 Minutes
Once, Yari 07/18/20 at 1045, For 1 dose
Do not filter
[facility] Malignant neoplasm of left breast in fem [place], estrogen receptor positive, unspecified site of breast Medication administered onsite pertuzumab/trastuzumab/hyaluronidase-zzx f (PHESGO) 60-60-2000 MG-MG-U/ML subcutaneous injection 10 mL [id number] 07/18/2020 10:45:00 AM EST 10 mL Subcutaneous completed Malignant neopla sm of left breast in female, estrogen receptor positive, unspecified site of breast 10 mL, S ubcutaneous, Once, Yari 07/18/20 at 1045, For 1 dose
For subcutaneous use ONLY. Administer over 5 minutes. Alternate injection site between left and right thigh only.
[facility] Malignant neoplasm of left breast in [facility] [place], estrogen receptor positive, unspecified site of breast Medication administered onsite Lorazepam 0.5 MG Oral Tablet LORazepam (ATIVAN) tablet 0.5 mg LORazepam (ATIVAN) tablet 0.5 mg 07/18/2020 10:30:00 AM EST 0.5 mg Oral completed Malignant neoplasm of left breast in female, estrogen receptor positive, unspecified site of breast 0.5 mg, Oral, Once, Yari 07/18/20 at 1030 , For 1 dose [facility] Malignant neoplasm of left breast in [facility], estrogen receptor positive, unspecified site of breast Medication administered onsite dexamethasone (DECADRON) 12 mg in sodium chloride 0.9 % 50 m L IVPB 07/18/2020 10:30:00 AM EST 12 mg Intravenous completed Ma lignant neoplasm of left breast in female, estrogen receptor positive, unspecified site of breast 12 mg, Intravenous, Administer over 15 Minutes, Once, Yari 07/18/20 at 1030, For 1 dose [facility] Malignant neoplasm of left breast in [facility], estrogen receptor positive, unspecified site of breast Medication administered onsite ondansetron (ZOFRAN) 16 mg in sodium chloride 0.9 % 50 mL (0 .32 mg/mL) IVPB 07/18/2020 10:30:00 AM EST 16 mg Intravenous c ompleted Malignant neoplasm of left breast in female, estrogen receptor positive, unspecified site of breast 16 mg, Intravenous, Once, Yari 07/18/20 a t 1030, For 1 dose [facility] Malignant neoplasm of left breast in [facility], estrogen receptor positive, unspecified site of breast Medication administered onsite PACLitaxel-protein bound (ABRAXANE) 130 mg in sodium c hloride 0.9 % 26 mL IVPB 06/27/2020 11:45:00 AM EST 75 mg/m2 Intravenous completed Malignant neoplasm of left breast in female, estrogen receptor positive, unspecified site of breast 130 mg (rounded from 132 mg = 75 mg/m2 1.76 m2 Treatment plan recorded BSA), Intravenous, Administer over 30 Minutes
Once, Yari 06/27/20 at 1145, For 1 dose
Do not filter
[facility] Malignant neoplasm of left breast in [facility] [place], estrogen receptor positive, unspecified site of breast Medication administered onsite pertuzumab/trastuzumab/hyaluronidase-zzx f (PHESGO) 60-60-2000 MG-MG-U/ML subcutaneous injection 10 mL [id number] 06/27/2020 11:30:00 AM EST 10 mL Subcutaneous completed Malignant neopla sm of left breast in female, estrogen receptor positive, unspecified site of breast 10 mL, S ubcutaneous, Once, Yari 06/27/20 at 1130, For 1 dose
600mg -600mg- 20,000 units For subcutaneous use ONLY. Administer over 5 minutes. Alternate injection site between left and right thigh only.
[facility] Malignant neoplasm of left breast in [facility], estrogen receptor positive, unspecified site of breast Medication administered onsite Lorazepam 0.5 MG Oral Tablet LORazepam (ATIVAN) tablet 0.5 mg LORazepam (ATIVAN) tablet 0.5 mg 06/27/2020 11:15:00 AM EST 0.5 mg Oral completed Malignant neoplasm of left breast in female, estrogen receptor positive, unspecified site of breast 0.5 mg, Oral, Once, Yari 06/27/20 at 1115 , For 1 dose [facility] Malignant neoplasm of left breast in [facility], estrogen receptor positive, unspecified site of breast Medication administered onsite dexamethasone (DECADRON) 12 mg in sodium chloride 0.9 % 50 m L IVPB 06/27/2020 11:15:00 AM EST 12 mg Intravenous completed Ma lignant neoplasm of left breast in female, estrogen receptor positive, unspecified site of breast 12 mg, Intravenous, Administer over 15 Minutes, Once, Yari 06/27/20 at 1115, For 1 dose [facility] Malignant neoplasm of left breast in [facility] [place], estrogen receptor positive, unspecified site of breast Medication administered onsite ondansetron (ZOFRAN) 16 mg in sodium chloride 0.9 % 50 mL (0 .32 mg/mL) IVPB 06/27/2020 11:15:00 AM EST 16 mg Intravenous c ompleted Malignant neoplasm of left breast in female, estrogen receptor positive, unspecified site of breast 16 mg, Intravenous, Once, Yari 06/27/20 a t 1115, For 1 dose [facility] Malignant neoplasm of left breast in fem [place], estrogen receptor positive, unspecified site of breast Medication administered onsite Atropine Sulfate 0.025 MG / Diphenoxylat e Hydrochloride 2.5 MG Oral Tablet Diphenoxylate-Atropine 2.5-0.025 MG Oral Tablet (Lomotil) Diphenoxylate-Atropine 2.5-0.025 MG Oral Tablet (Lomotil) 06/27/2020 12:00:00 AM EST 1 {tbl} Oral active Diarrhea due to drugMalignan t neoplasm of left breast in female, estrogen receptor positive, unspecified site of breast Take 1 t ablet by mouth Four times daily as needed for Diarrhea, Max Daily Dose: 4 tablets [facility] Diarrhea due to drug Malignant neoplasm of left breast in fem [place], estrogen receptor positive, unspecified site of breast Loperamide Hydrochloride 2 MG Oral Table t Loperamide HCl 2 MG Oral Tablet (Imodium A-D) Loperamide HCl 2 MG Oral Tablet (Imodium A-D) 06/20/20 12:00:00 AM EST active Diarrhea d ue to drugMalignant neoplasm of left breast in female, estrogen receptor positive, unspecified site of breast Take 2 tablets with the first loose stool and then 1 tablet with each subsequent stool (max dose of 8 tablets per day or 16 mg total) [facility] Diarrhea due to drug Malignant neoplasm of left breast in fem [place], estrogen receptor positive, unspecified site of breast Hydrocortisone 25 MG/ML Topical Cream Hydrocortisone 2 .5 % External Cream Hydrocortisone 2.5 % External Cream 06/13/2020 12:00:00 AM EST aborted Apply to affected areas twice da papito as needed. [facility] maalox/lidocaine/diphenhydrAMINE 1:1:1 SWISH & SWAL oral terra pension 06/08/2020 12:00:00 AM EDT 10 mL Swish & Swallow aborted Swish and swallow 10 mLs every 4 (four) hours as needed Pharmacy compound: Maalox, lidocaine viscous 2 %, Benadryl 12.5 mg/5 mL [facility] PACLitaxel-protein bound (ABRAXANE) 175 mg in sodium c hloride 0.9 % 35 mL IVPB 06/06/2020 02:00:00 PM EDT 100 mg/m2 Intravenous completed Malignant neoplasm of left breast in female, estrogen receptor positive, unspecified site of breast 175 mg (rounded from 176 mg = 100 mg/m2 1.76 m2 Treatment plan recorded BSA), Intravenous, Administer over 30 Minutes
Once, Yari 06/06/20 at 1400, For 1 dose
Do not filter
[facility] Malignant neoplasm of left breast in fem [place], estrogen receptor positive, unspecified site of breast Medication administered onsite trastuzumab (HERCEPTIN) 559 mg in sodium chloride 0.9 % 250 mL (2.236 mg/mL) chemo infusion 06/06/2020 12:30:00 PM EDT 8 mg/kg Intravenous completed Malignant neoplasm of left breast in female, estrogen receptor positive, unspecified site of breast 559 mg (rounded from 559.2 mg = 8 mg/kg 69.9 kg Treatment plan recorded weight), Intravenous, at 166.7 mL/hr, Once, Yari 06/06/20 at 1230, For 1 dose
NOT compatible with D5W.Initial loading dose over 90 min.
Dose = 8 mg/kg for loading; 6 mg/kg for maintenance
[facility] Malignant neoplasm of left breast in fem [place], estrogen receptor positive, unspecified site of breast Medication administered onsite Lorazepam 0.5 MG Oral Tablet LORazepam (ATIVAN) tablet 0.5 mg LORazepam (ATIVAN) tablet 0.5 mg 06/06/2020 11:00:00 AM EDT 0.5 mg Oral completed Malignant neoplasm of left breast in female, estrogen receptor positive, unspecified site of breast 0.5 mg, Oral, Once, Yari 06/06/20 at 1100 , For 1 dose [facility] Malignant neoplasm of left breast in [facility] [place], estrogen receptor positive, unspecified site of breast Medication administered onsite Pertuzumab (PERJETA) 840 mg in sodium chloride 0.9 % 250 mL infusion 06/06/2020 11:00:00 AM EDT 840 mg Intravenous c ompleted Malignant neoplasm of left breast in female, estrogen receptor positive, unspecified site of breast 840 mg, Intravenous, Adminis ter over 60 Minutes, Once, Yari 06/06/20 at 1100, For 1 dose [facility] Malignant neoplasm of left breast in [facility], estrogen receptor positive, unspecified site of breast Medication administered onsite dexamethasone (DECADRON) 12 mg in sodium chloride 0.9 % 50 m L IVPB 06/06/2020 10:45:00 AM EDT 12 mg Intravenous completed Ma lignant neoplasm of left breast in female, estrogen receptor positive, unspecified site of breast 12 mg, Intravenous, Administer over 15 Minutes, Once, Yari 06/06/20 at 1045, For 1 dose [facility] Malignant neoplasm of left breast in [facility], estrogen receptor positive, unspecified site of breast Medication administered onsite Acetaminophen 325 MG Oral Tablet acetaminophen (TYLENO L) tablet 650 mg acetaminophen (TYLENOL) tablet 650 mg 06/06/2020 10:45:00 AM EDT 65 0 mg Oral completed Malignant neoplasm o f left breast in female, estrogen receptor positive, unspecified site of breast 650 mg, Oral, Onc e, Yari 06/06/20 at 1045, For 1 dose
Give 30 minutes prior to Trastuzumab. Maximum dose of acetaminophen is 4000 mg from all sources in 24 hours.
[facility] Malignant neoplasm of left breast in [facility], estrogen receptor positive, unspecified site of breast Medication administered onsite ondansetron (ZOFRAN) 16 mg in sodium chloride 0.9 % 50 mL (0 .32 mg/mL) IVPB 06/06/2020 10:45:00 AM EDT 16 mg Intravenous c ompleted Malignant neoplasm of left breast in female, estrogen receptor positive, unspecified site of breast 16 mg, Intravenous, Once, Yari 06/06/20 a t 1045, For 1 dose [facility] Malignant neoplasm of left breast in [facility], estrogen receptor positive, unspecified site of breast Medication administered onsite Ondansetron 8 MG Oral Tablet Ondansetron HCl 8 MG Oral Tablet (ZOFRAN) Ondansetron HCl 8 MG Oral Tablet (ZOFRAN) 06/06/2020 12:00:00 AM EDT 8 mg Oral active Malignant neopla sm of left breast in female, estrogen receptor positive, unspecified site of breast Take 1 tablet by mouth every 8 (eight) hours as needed for Nausea or Vomiting [facility] Malignant neoplasm of left breast in [facility], estrogen receptor positive, unspecified site of breast Methadone Hydrochloride 5 MG Oral Tablet Methadone HCl 5 MG Oral Tablet (DOLOPHINE) Methadone HCl 5 MG Oral Tablet (DOLOPHINE) 06/01/2020 12:00:00 AM EDT aborted TAKE ONE TABLET BY MOUTH THREE TIMES A DAY FOR CANCER PAIN MAXIMUM DAILY DOSE THREE TABLETS [facility] 0.6 ML pegfilgrastim 10 MG/ML Prefilled Syringe pegfilgrastim (NEULASTA ONPRO) for on-body injector kit 6 mg pegfilgrastim (NEULASTA ONPRO) for on-macy dy injector kit 6 mg 05/15/2020 12:15:00 PM EDT 6 mg Subcutaneous completed Malignant neoplasm of left breast in female, estrogen receptor positive, unspecified site of breast 6 mg, Subcutaneous, Once, W ed 05/15/20 at 1215, For 1 dose
Refrigerate
[facility] Malignant neoplasm of left breast in [facility], estrogen receptor positive, unspecified site of breast Medication administered onsite DOXOrubicin 2 mg/mL in sterile water syringe 53 mg [id number] 05/15/2020 12:15:00 PM EDT 30 mg/m2 Intravenous completed Ma lignant neoplasm of left breast in female, estrogen receptor positive, unspecified site of breast 53 mg (rounded from 52.8 mg = 30 mg/m2 1.76 m2 Treatment plan recorded BSA), Intravenous, at 318 mL/hr, Once, 05/15/20 at 1215, For 1 dose
Caution: Vesicant. Avoid extravasation
[facility] Malignant neoplasm of left breast in [facility], estrogen receptor positive, unspecified site of breast Medication administered onsite cyclophosphamide (CYTOXAN) 530 mg in sod ium chloride 0.9 % 250 mL chemo infusion 05/15/2020 12:00:00 PM EDT 300 mg/m2 Intravenous completed Malignant neoplasm of left breast in female, estrogen receptor positive, unspecified site of breast 530 mg (rounded from 528 mg = 300 mg/m2 1.76 m2 Treatment plan recorded BSA), Intravenous, Administer over 30 Minutes, Once, 05/15/20 at 1200, For 1 dose [facility] Malignant neoplasm of left breast in [facility], estrogen receptor positive, unspecified site of breast Medication administered onsite Lorazepam 0.5 MG Oral Tablet LORazepam (ATIVAN) tablet 0.5 mg LORazepam (ATIVAN) tablet 0.5 mg 05/15/2020 11:15:00 AM EDT 0.5 mg Oral completed Malignant neoplasm of left breast in female, estrogen receptor positive, unspecified site of breast 0.5 mg, Oral, Once, Wed 05/15 at 1115, For 1 dose
Give prior to chemotherapy
[facility] Malignant neoplasm of left breast in [facility] [place], estrogen receptor positive, unspecified site of breast Medication administered onsite fosaprepitant dimeglumine (EMEND) 150 mg in sodium chloride 0.9 % 150 mL infusion 05/15/2020 11:15:00 AM EDT 150 mg Intravenous completed Malignant neoplasm of left breast in female, estrogen receptor positive, unspecified site of breast 150 mg, Intravenous, Once, Wed05/15/20 at 1115, For 1 dose
Give 30 minutes before chemotherapy over 20-30 minutes.
[facility] Malignant neoplasm of left breast in [facility], estrogen receptor positive, unspecified site of breast Medication administered onsite dexamethasone (DECADRON) 12 mg in sodium chloride 0.9 % 50 m L IVPB 05/15/2020 11:15:00 AM EDT 12 mg Intravenous completed Ma lignant neoplasm of left breast in female, estrogen receptor positive, unspecified site of breast 12 mg, Intravenous, Administer over 15 Minutes, Once, 05/15/20 at 1115, For 1 dose [facility] Malignant neoplasm of left breast in [facility], estrogen receptor positive, unspecified site of breast Medication administered onsite palonosetron (ALOXI) 0.25 MG/5ML injection syringe 0.25 mg 6 [id number] 05/15/2020 11:15:00 AM EDT 0.25 mg Intravenous c ompleted Malignant neoplasm of left breast in female, estrogen receptor positive, unspecified site of breast 0.25 mg, Intravenous, Once, 05/15/20 at 1115, For 1 dose [facility] Malignant neoplasm of left breast in [facility] [place], estrogen receptor positive, unspecified site of breast Medication administered onsite Nicotine 2 MG Oral Lozenge Nicotine Abad crilex 2 MG Mouth/Throat Lozenge (Nicorette) Nicotine Polacrilex 2 MG Mouth/Throat Lozenge (Nicoret te) 05/15/2020 12:00:00 AM EDT [address] 1 lozenge inside cheek as needed for Smoking cessation [facility] 24 HR Nicotine 0.875 MG/HR Transdermal P atch Nicotine 21 MG/24HR Transdermal Patch 24 Hour (NICODERM CQ) Nicotine 21 MG/24HR Transdermal Patch 24 Hour (NICODERM CQ) 05/15/2020 12:00:00 AM EDT 1 {patch} Transdermal aborted Place 1 patch onto the skin every 24 (twenty-four) nu rs [facility] gabapentin 400 MG Oral Capsule Gabapentin 400 MG Oral Capsule (NEURONTIN) Gabapentin 400 MG Oral Capsule (NEURONTIN) 05/10/2020 12:00:00 AM EDT aborted [facility] B Complex Oral Capsule [id number] 05/10/2020 12:00:00 AM EDT aborted [facility] duloxetine 30 MG Delayed Release Oral Ca psule DULoxetine HCl 30 MG Oral Capsule Delayed Release Particles (CYMBALTA) DULoxetine HCl 30 MG Oral Capsule Delaye d Release Particles (CYMBALTA) 04/24/2020 12:00:00 AM EDT aborted [facility] Loratadine 10 MG Oral Tablet Loratadine 10 MG Oral Tab let (CLARITIN) Loratadine 10 MG Oral Tablet (CLARITIN) 04/11/2020 12:00:00 AM EDT 10 mg Oral aborted Take 10 mg by mouth daily [facility] Acyclovir 400 MG Oral Tablet Acyclovir 400 MG Oral Tab let (ZOVIRAX) Acyclovir 400 MG Oral Tablet (ZOVIRAX) 04/03/2020 12:00:00 AM EDT aborted [facility] pregabalin 100 MG Oral Capsule Pregabalin 100 MG Oral Capsule (LYRICA) Pregabalin 100 MG Oral Capsule (LYRICA) 04/03/2020 12:00:00 AM EDT aborted TAKE ONE CAPSULE BY MOUTH THREE TIMES A DAY MAXIMUM DAILY DOSE 3 [facility] Hydroxyzine Hydrochloride 25 MG Oral Tab let hydrOXYzine HCl 25 MG Oral Tablet (ATARAX) hydrOXYzine HCl 25 MG Oral Tablet (ATARAX) 04/01/2020 12:00[facility] 37.5 MG Extended Relea se Oral Capsule Venlafaxine HCl ER 37.5 MG Oral Capsule Extended Release 24 Hour (EFFEXOR-XR) Venlafaxine HCl ER 37.5 MG Oral Capsule Extended Release 24 Hour (EFFEXOR-XR) 04/01/2020 12:00:00 AM EDT aborted [facility] topiramate 100 MG Oral Tablet Topiramate 100 MG Oral T ablet (TOPAMAX) Topiramate 100 MG Oral Tablet (TOPAMAX) 03/29/2020 12:00:00 AM EDT active prn [facility] Naproxen 500 MG Oral Tablet Naproxen 500 MG Oral Table t (NAPROSYN) Naproxen 500 MG Oral Tablet (NAPROSYN) 03/25/2020 12:00:00 AM EDT 500 mg Oral aborted Take 500 mg by mouth Two Times Daily [facility] Ondansetron 8 MG Oral Tablet Ondansetron HCl 8 MG Oral Tablet (ZOFRAN) Ondansetron HCl 8 MG Oral Tablet (ZOFRAN) 03/14/2020 12:00:00 AM EDT 8 mg Oral aborted Take 8 mg by mouth T hree times daily [facility] Oxybutynin chloride 5 MG Oral Tablet Oxy butynin Chloride 5 MG Oral Tablet (DITROPAN) Oxybutynin Chloride 5 MG Oral Tablet (DITROPAN) 2019 12:00:00 AM EDT 5 mg Oral aborted Take 5 mg by angie th Two Times Daily [facility] Cholecalciferol 1000 UNT Oral Tablet Vitamin D 25 MCG (1000 UT) Oral Tablet Vitamin D 25 MCG (1000 UT) Oral Tablet 02/28/2020 12:00:00 AM EDT 1 {tbl} Oral aborted Take 1 tablet by angie th daily [facility] Baclofen 10 MG Oral Tablet Baclofen 10 MG Oral Tablet (LIORESAL) Baclofen 10 MG Oral Tablet (LIORESAL) 02/26/2020 12:00:00 AM EDT aborted TAKE ONE HALF TABLET BY MOUTH THREE TIMES A DAY FOR 5 DAYS THEN 1 TABLET WITH FOOD OR MILK THREE TIMES A DAY [facility] Nicotine 2 MG Chewing Gum nicotine (abad crilex) [address] ONE LOZENGE INSIDE CHEEK NEEDED FOR SMOKING CESSATION nicotine (polacrilex) [address] ONE LOZENGE INSIDE CHEEK NEEDED FOR SMOKING CESSATION completed nicotine 2 MG Chewing Gum [facility]ENICE ([facility]) Acyclovir 400 MG Oral Tablet acyclovir 400 mg tablet acyclovir 4 00 mg tablet completed acyclovir 400 MG Oral Tablet REZA ([facility]) pregabalin 100 MG Oral Capsule pregabali n 100 mg capsule TAKE ONE CAPSULE BY MOUTH THREE TIMES A DAY MAXIMUM DAILY DOSE 3 pregabalin 100 mg capsule TAKE ONE CAPSULE BY MOUTH THREE TIMES A DAY MAXIMUM DAILY DOSE 3 completed pregabalin 100 MG Oral Capsule A THENA ([facility]) Levothyroxine Sodium 0.025 MG Oral Tablet levothyroxin e 25 mcg tablet levothyroxine 25 mcg tablet completed levothyroxine sodium 0.025 MG Oral Tablet REZA ([facility]) tolterodine tartrate 2 MG Oral Tablet tolterodine 2 mg tablet tolterodine 2 mg tablet completed tolterodine tar trate 2 MG Oral Tablet [facility]ENICE ([facility]) Naproxen 250 MG Oral Tablet naproxen 250 mg tablet TAKE ONE TABLET BY MOUTH TWICE A DAY NEEDED FOR PAIN naproxen 250 mg tablet TAKE ONE TABLET B Y MOUTH TWICE A DAY NEEDED FOR PAIN complet ed naproxen 250 MG Oral Tablet [facility] ([facility]) Baclofen 10 MG Oral Tablet baclofen 10 mg tablet baclofen 10 mg tablet completed baclofen 10 MG Oral Table t [facility] ([facility]) Hydroxyzine Hydrochloride 25 MG Oral Tab let hydroxyzine HCl 25 mg tablet TAKE ONE TABLET BY MOUTH THREE TIMES A DAY NEEDED FOR ANXIETY hydroxyzine HCl 25 mg tablet TAKE ONE TABLET BY MOUTH THREE TIMES A DAY NEEDED FOR ANXIETY completed hydroxyzine hydrochlor victoriano 25 MG Oral Tablet [facility]EN[facility] ([facility]) duloxetine 60 MG Delayed Release Oral Ca psule duloxetine 60 mg capsule,delayed release duloxetine 60 mg capsule,delayed release completed duloxetine 60 MG Delayed Release Oral Capsule [facility] ([facility]) Hydroxyzine Hydrochloride 25 MG Oral Tab let hydroxyzine HCl 25 mg tablet TAKE ONE TABLET BY MOUTH THREE TIMES A DAY NEEDED FOR ANXIETY hydroxyzine HCl 25 mg tablet TAKE ONE TABLET BY MOUTH THREE TIMES A DAY NEEDED FOR ANXIETY completed hydroxyzine hydrochlor victoriano 25 MG Oral Tablet [facility] ([facility]) Fluconazole 100 MG Oral Tablet fluconazo le 100 mg tablet TAKE ONE TABLET BY MOUTH EVERY DAY FOR YEAST INFECTION fluconazole 100 mg tablet TAKE ONE TABLE T BY MOUTH EVERY DAY FOR YEAST INFECTION co mpleted fluconazole 100 MG Oral Tablet [facility] ([facility]) cetirizine hydrochloride 10 MG Oral Tablet cetirizine 10 mg tablet cetirizine 10 mg tablet completed cetirizine h ydrochloride 10 MG Oral Tablet [facility] ([facility]) Lorazepam 0.5 MG Oral Tablet lorazepam 0.5 mg tablet lorazepam 0 .5 mg tablet completed lorazepam 0.5 MG Oral Tablet [facility] ([facility]) cetirizine hydrochloride 10 MG Oral Tablet cetirizine 10 mg tablet cetirizine 10 mg tablet completed cetirizine h ydrochloride 10 MG Oral Tablet [facility] ([facility]) Ketorolac Tromethamine 10 MG Oral Tablet ketorolac 10 mg tablet ketorolac 10 mg tablet completed ketorolac trome thamine 10 MG Oral Tablet [facility] ([facility]) Nystatin [id number] UNT/ML Oral Suspension n ystatin 100,000 unit/mL oral suspension TAKE 5 ML BY MOUTH FOUR TIMES A DAY FOR 10 DAYS nystatin 100,000 unit/mL oral suspension TAKE 5 ML BY MOUTH FOUR TIMES A DAY FOR 10 DAYS completed nystatin [id number] UNT/ML Oral Susp ension [facility]ENICE ([facility]) Phenazopyridine hydrochloride 200 MG Ora l Tablet phenazopyridine 200 mg tablet TAKE ONE TABLET BY MOUTH THREE TIMES A DAY FOR 2 DAYS phenazopyridine 200 mg tablet TAKE ONE TABLET BY MOUTH THREE TIMES A DAY FOR 2 DAYS completed phenazopyridine hydrochloride 20 0 MG Oral Tablet [facility] ([facility]) Acyclovir 400 MG Oral Tablet acyclovir 400 mg tablet acyclovir 4 00 mg tablet completed acyclovir 400 MG Oral Tablet [facility] ([facility]) Fluconazole 100 MG Oral Tablet fluconazo le 100 mg tablet TAKE ONE TABLET BY MOUTH EVERY DAY FOR YEAST INFECTION fluconazole 100 mg tablet TAKE ONE TABLE T BY MOUTH EVERY DAY FOR YEAST INFECTION co mpleted fluconazole 100 MG Oral Tablet [facility] ([facility]) 24 HR Nicotine 0.875 MG/HR Transdermal P atch nicotine 21 mg/24 [address] daily transdermal patch [address] 1 PATCH ONTO THE SKIN EVERY 24 HOURS nicotine 21 mg/[address] transdermal patch [address]ACE 1 PATCH ONTO THE SKIN EVERY 24 HOURS completed 24 HR nicotine 0.875 MG/HR T ransdermal System [facility]ENICE ([facility]) pregabalin 100 MG Oral Capsule pregabali n 100 mg capsule TAKE ONE CAPSULE BY MOUTH THREE TIMES A DAY MAXIMUM DAILY DOSE 3 pregabalin 100 mg capsule TAKE ONE CAPSULE BY MOUTH THREE TIMES A DAY MAXIMUM DAILY DOSE 3 completed pregabalin 100 MG Oral Capsule A THENA ([facility]) Naproxen 500 MG Oral Tablet naproxen 500 mg tablet TAKE ONE TABLET BY MOUTH TWO TIMES A DAY naproxen 500 mg tablet TAKE ONE TABLET BY MOUTH TWO TIMES A DAY completed naproxen 500 MG Oral T ablet REZA ([facility]) tolterodine tartrate 2 MG Oral Tablet tolterodine 2 mg tablet tolterodine 2 mg tablet completed tolterodine tar trate 2 MG Oral Tablet [facility]ENICE ([facility]) topiramate 50 MG Oral Tablet topiramate 50 mg tablet topiramate 50 mg tablet completed topiramate 50 MG Oral Tablet [facility]EN[facility] ([facility]) Ciprofloxacin 500 MG Oral Tablet ciprofloxacin 500 mg tablet ciprofloxacin 500 mg tablet completed ciprofloxaci n 500 MG Oral Tablet [facility]EN[facility] ([facility]) Ciprofloxacin 500 MG Oral Tablet ciprofloxacin 500 mg tablet ciprofloxacin 500 mg tablet completed ciprofloxaci n 500 MG Oral Tablet [facility]EN[facility] ([facility]) Hydroxyzine Hydrochloride 25 MG Oral Tab let hydroxyzine HCl 25 mg tablet TAKE ONE TABLET BY MOUTH THREE TIMES A DAY NEEDED FOR ANXIETY hydroxyzine HCl 25 mg tablet TAKE ONE TABLET BY MOUTH THREE TIMES A DAY NEEDED FOR ANXIETY completed hydroxyzine hydrochlor victoriano 25 MG Oral Tablet [facility]EN[facility] ([facility]) pregabalin 75 MG Oral Capsule pregabalin 75 mg capsule TAKE ONE CAPSULE BY MOUTH TWICE A DAY MAXIMUM DAILY DOSE 2 pregabalin 75 mg capsule TAKE ONE CAPSUL E BY MOUTH TWICE A DAY MAXIMUM DAILY DOSE 2 completed pregabalin 75 MG Oral Capsule [facility] ([facility]) Nystatin 100 UNT/MG Topical Powder nysta tin 100,000 unit/gram topical powder APPLY TOPICALLY TWO TIMES A DAY TO AFFECTED AREAS nystatin 100,000 unit/gram topical powder APPLY TOPICALLY TWO TIMES A DAY TO AFFECTED AREAS completed nystatin 100 UNT/MG Topical Powd er VENICE ([facility]) pregabalin 75 MG Oral Capsule pregabalin 75 mg capsule TAKE ONE CAPSULE BY MOUTH TWICE A DAY MAXIMUM DAILY DOSE 2 pregabalin 75 mg capsule TAKE ONE CAPSUL E BY MOUTH TWICE A DAY MAXIMUM DAILY DOSE 2 completed pregabalin 75 MG Oral Capsule REZA ([facility]) 24 HR Nicotine 0.875 MG/HR Transdermal P atch nicotine 21 mg/24 hr daily transdermal patch [address]ACE 1 PATCH ONTO THE SKIN EVERY 24 HOURS nicotine 21 mg/[address] daily transdermal patch [address]ACE 1 PATCH ONTO THE SKIN EVERY 24 HOURS completed 24 HR nicotine 0.875 MG/HR T ransdermal System VENICE ([facility]) Lidocaine 25 MG/ML / Prilocaine 25 MG/ML Topical Cream lidocaine-prilocaine 2.5 %-2.5 % topical cream lidocaine-prilocaine 2.5 %-2.5 % topical cream completed lidocaine 25 MG/ML / priloca ine 25 MG/ML Topical Cream VENICE ([facility]) Baclofen 10 MG Oral Tablet baclofen 10 mg tablet baclofen 10 mg tablet completed baclofen 10 MG Oral Table t [facility] ([facility]) Levothyroxine Sodium 0.025 MG Oral Tablet levothyroxin e 25 mcg tablet levothyroxine 25 mcg tablet completed levothyroxine sodium 0.025 MG Oral Tablet [facility]ENICE ([facility]) Phenazopyridine hydrochloride 200 MG Ora l Tablet phenazopyridine 200 mg tablet TAKE ONE TABLET BY MOUTH THREE TIMES A DAY FOR 2 DAYS phenazopyridine 200 mg tablet TAKE ONE TABLET BY MOUTH THREE TIMES A DAY FOR 2 DAYS completed phenazopyridine hydrochloride 20 0 MG Oral Tablet [facility]ENICE ([facility]) Ketorolac Tromethamine 10 MG Oral Tablet ketorolac 10 mg tablet ketorolac 10 mg tablet completed ketorolac trome thamine 10 MG Oral Tablet [facility]EN[facility] ([facility]) Loratadine 10 MG Oral Tablet loratadine 10 mg tablet loratadine 10 mg tablet completed loratadine 10 MG Oral Tablet [facility]EN[facility] ([facility]) topiramate 50 MG Oral Tablet topiramate 50 mg tablet topiramate 50 mg tablet completed topiramate 50 MG Oral Tablet [facility]ENICE ([facility]) Loratadine 10 MG Oral Tablet loratadine 10 mg tablet loratadine 10 mg tablet completed loratadine 10 MG Oral Tablet [facility]EN[facility] ([facility]) Hydrocortisone 25 MG/ML Topical Cream hy drocortisone 2.5 % topical cream APPLY TO AFFECTED AREA S TWO TIMES A DAY NEEDED hydrocortisone 2.5 % topical cream APPLY TO AFFECTED AREA S TWO TIMES A DAY NEEDED completed hydrocortisone 25 MG/ML Topical Cream REZA ([facility]) Ciprofloxacin 500 MG Oral Tablet ciprofloxacin 500 mg tablet ciprofloxacin 500 mg tablet completed ciprofloxaci n 500 MG Oral Tablet VENICE ([facility]) Sulfamethoxazole 800 MG / Trimethoprim 1 60 MG Oral Tablet sulfamethoxazole 800 mg-trimethoprim 160 mg tablet TAKE ONE TABLET BY MOUTH TWO TIMES PER DAY FOR 7 DAYS sulfamethoxazole 800 mg-trimethoprim 160 mg tablet TAKE ONE TABLET BY MOUTH TWO TIMES PER DAY FOR 7 DAYS completed sulfamethoxazole 800 MG / trimethoprim 160 MG Oral Tablet [facility]ENICE ([facility]) Potassium 99 MG Oral Tablet [id number] Oral aborted Take by mouth [facility] Ciprofloxacin 500 MG Oral Tablet ciprofloxacin 500 mg tablet ciprofloxacin 500 mg tablet completed ciprofloxaci n 500 MG Oral Tablet [facility]ENICE ([facility]) duloxetine 30 MG Delayed Release Oral Ca psule duloxetine 30 mg capsule,delayed release duloxetine 30 mg capsule,delayed release completed duloxetine 30 MG Delayed Release Oral Capsule VENICE ([facility]) Naproxen sodium 220 MG Oral Tablet naproxen sodium 220 mg tablet naproxen sodium 220 mg tablet completed naproxen sodium 220 MG Oral Tablet [facility]ENICE ([facility]) Naproxen sodium 220 MG Oral Tablet naproxen sodium 220 mg tablet naproxen sodium 220 mg tablet completed naproxen sodium 220 MG Oral Tablet [facility]ENICE ([facility]) vitamin d3 25 mcg (1000 ut) tabs completed vitamin d3 25 mcg (1000 ut) tabs REZA ([facility]) Amitriptyline Hydrochloride 25 MG Oral T ablet amitriptyline 25 mg tablet TAKE ONE TABLET BY MOUTH ONCE DAILY IN THE EVENING amitriptyline 25 mg tablet TAKE ONE TABLET BY MOUTH ONCE DAILY IN THE EVENING completed amitriptyline hydrochloride 25 MG Oral Tablet VENICE ([facility]) Oxybutynin chloride 5 MG Oral Tablet oxy butynin chloride 5 mg tablet TAKE ONE TABLET BY MOUTH TWICE A DAY oxybutynin chloride 5 mg tablet TAKE ONE TABLET BY MOUTH TWICE A DAY completed oxybutynin chloride 5 MG Oral Tablet REZA ([facility]) Nicotine 2 MG Chewing Gum nicotine (abad crilex) [address] ONE LOZENGE INSIDE CHEEK NEEDED FOR SMOKING CESSATION nicotine (polacrilex) [address] ONE LOZENGE INSIDE CHEEK NEEDED FOR SMOKING CESSATION completed nicotine 2 MG Chewing Gum VENICE ([facility]) Ciprofloxacin 500 MG Oral Tablet ciprofloxacin 500 mg tablet ciprofloxacin 500 mg tablet completed ciprofloxaci n 500 MG Oral Tablet [facility]EN[facility] ([facility]) Baclofen 10 MG Oral Tablet baclofen 10 mg tablet baclofen 10 mg tablet completed baclofen 10 MG Oral Table t [facility]EN[facility] ([facility]) Sulfamethoxazole 800 MG / Trimethoprim 1 60 MG Oral Tablet sulfamethoxazole 800 mg-trimethoprim 160 mg tablet TAKE ONE TABLET BY MOUTH TWO TIMES PER DAY FOR 7 DAYS sulfamethoxazole 800 mg-trimethoprim 160 mg tablet TAKE ONE TABLET BY MOUTH TWO TIMES PER DAY FOR 7 DAYS completed sulfamethoxazole 800 MG / trimethoprim 160 MG Oral Tablet [facility]EN[facility] ([facility]) Hydrocortisone 25 MG/ML Topical Cream [P roctozone HC] Proctozone-HC 2.5 % topical cream perineal applicator Proctozone-HC 2.5 % topical cream perine al applicator completed hyd rocortisone 25 MG/ML Topical Cream [Proctozone HC] VENICE ([facility]) Amitriptyline Hydrochloride 25 MG Oral T ablet amitriptyline 25 mg tablet TAKE ONE TABLET BY MOUTH ONCE DAILY IN THE EVENING amitriptyline 25 mg tablet TAKE ONE TABLET BY MOUTH ONCE DAILY IN THE EVENING completed amitriptyline hydrochloride 25 MG Oral Tablet [facility]ENICE ([facility]) pregabalin 75 MG Oral Capsule pregabalin 75 mg capsule TAKE ONE CAPSULE BY MOUTH TWICE A DAY MAXIMUM DAILY DOSE 2 pregabalin 75 mg capsule TAKE ONE CAPSUL E BY MOUTH TWICE A DAY MAXIMUM DAILY DOSE 2 completed pregabalin 75 MG Oral Capsule VENICE ([facility]) pregabalin 75 MG Oral Capsule pregabalin 75 mg capsule TAKE ONE CAPSULE BY MOUTH TWICE A DAY MAXIMUM DAILY DOSE 2 pregabalin 75 mg capsule TAKE ONE CAPSUL E BY MOUTH TWICE A DAY MAXIMUM DAILY DOSE 2 completed pregabalin 75 MG Oral Capsule VENICE ([facility]) topiramate 25 MG Oral Tablet topiramate 25 mg tablet topiramate 25 mg tablet completed topiramate 25 MG Oral Tablet [facility]EN[facility] ([facility]) TRAZODONE HCL PO Oral aborted Take by mouth [facility] pregabalin 100 MG Oral Capsule pregabali n 100 mg capsule TAKE ONE CAPSULE BY MOUTH THREE TIMES A DAY MAXIMUM DAILY DOSE 3 pregabalin 100 mg capsule TAKE ONE CAPSULE BY MOUTH THREE TIMES A DAY MAXIMUM DAILY DOSE 3 completed pregabalin 100 MG Oral Capsule A THENA ([facility]) Ketorolac Tromethamine 10 MG Oral Tablet ketorolac 10 mg tablet ketorolac 10 mg tablet completed ketorolac trome thamine 10 MG Oral Tablet REZA ([facility]) Ketorolac Tromethamine 10 MG Oral Tablet ketorolac 10 mg tablet ketorolac 10 mg tablet completed ketorolac trome thamine 10 MG Oral Tablet REZA ([facility]) 24 HR venlafaxine 37.5 MG Extended Relea se Oral Capsule [Effexor] Effexor XR 37.5 mg capsule,extended release 1 capsule once daily for a week, can increase to 2 tablets daily if tolerating Effexor XR 37.5 mg capsule,extended rele ase 1 capsule once daily for a week, can increase to 2 tablets daily if tolerating completed 24 HR venlafax ine 37.5 MG Extended Release Oral Capsule [Effexor] REZA ([facility]) Ketorolac Tromethamine 10 MG Oral Tablet ketorolac 10 mg tablet ketorolac 10 mg tablet completed ketorolac trome thamine 10 MG Oral Tablet REZA ([facility]) Sulfamethoxazole 800 MG / Trimethoprim 1 60 MG Oral Tablet sulfamethoxazole 800 mg-trimethoprim 160 mg tablet TAKE ONE TABLET BY MOUTH TWO TIMES PER DAY FOR 7 DAYS sulfamethoxazole 800 mg-trimethoprim 160 mg tablet TAKE ONE TABLET BY MOUTH TWO TIMES PER DAY FOR 7 DAYS complete d sulfamethoxazole 800 MG / trimethoprim 160 MG Oral Tablet REZA ([facility]) Naproxen 250 MG Oral Tablet naproxen 250 mg tablet TAKE ONE TABLET BY MOUTH TWICE A DAY NEEDED FOR PAIN naproxen 250 mg tablet TAKE ONE TABLET B Y MOUTH TWICE A DAY NEEDED FOR PAIN complet ed naproxen 250 MG Oral Tablet REZA ([facility]) 24 HR Nicotine 0.875 MG/HR Transdermal P atch nicotine 21 mg/24 hr daily transdermal patch PLACE 1 PATCH ONTO THE SKIN EVERY 24 HOURS nicotine 21 mg/24 hr daily transdermal patch PLACE 1 PATCH ONTO THE SKIN EVERY 24 HOURS completed 24 HR nicotine 0.875 MG/HR T ransdermal System VENICE ([facility]) Ciprofloxacin 500 MG Oral Tablet ciprofloxacin 500 mg tablet ciprofloxacin 500 mg tablet completed ciprofloxaci n 500 MG Oral Tablet [facility] ([facility]) Loratadine 10 MG Oral Tablet loratadine 10 mg tablet loratadine 10 mg tablet completed loratadine 10 MG Oral Tablet [facility] ([facility]) Cephalexin 500 MG Oral Capsule cephalexi n 500 mg capsule TAKE ONE CAPSULE BY MOUTH TWICE A DAY FOR 10 DAYS cephalexin 500 mg capsule TAKE ONE CAPSU LE BY MOUTH TWICE A DAY FOR 10 DAYS complete d cephalexin 500 MG Oral Capsule VENICE ([facility]) tolterodine tartrate 2 MG Oral Tablet tolterodine 2 mg tablet tolterodine 2 mg tablet completed tolterodine tar trate 2 MG Oral Tablet [facility] ([facility]) topiramate 50 MG Oral Tablet topiramate 50 mg tablet topiramate 50 mg tablet completed topiramate 50 MG Oral Tablet [facility] ([facility]) pregabalin 100 MG Oral Capsule pregabali n 100 mg capsule TAKE ONE CAPSULE BY MOUTH THREE TIMES A DAY MAXIMUM DAILY DOSE 3 pregabalin 100 mg capsule TAKE ONE CAPSULE BY MOUTH THREE TIMES A DAY MAXIMUM DAILY DOSE 3 completed pregabalin 100 MG Oral Capsule A THENA ([facility]) Naproxen 250 MG Oral Tablet naproxen 250 mg tablet TAKE ONE TABLET BY MOUTH TWICE A DAY NEEDED FOR PAIN naproxen 250 mg tablet TAKE ONE TABLET B Y MOUTH TWICE A DAY NEEDED FOR PAIN complet ed naproxen 250 MG Oral Tablet [facility] ([facility]) Hydrocortisone 25 MG/ML Topical Cream hy drocortisone 2.5 % topical cream APPLY TO AFFECTED AREA S TWO TIMES A DAY NEEDED hydrocortisone 2.5 % topical cream APPLY TO AFFECTED AREA S TWO TIMES A DAY NEEDED completed hydrocortisone 25 MG/ML Topical Cream VENICE ([facility]) Hydrocortisone 25 MG/ML Topical Cream [P roctozone HC] Proctozone-HC 2.5 % topical cream perineal applicator Proctozone-HC 2.5 % topical cream perine al applicator completed hyd rocortisone 25 MG/ML Topical Cream [Proctozone HC] VENICE ([facility]) Sulfamethoxazole 800 MG / Trimethoprim 1 60 MG Oral Tablet sulfamethoxazole 800 mg-trimethoprim 160 mg tablet TAKE ONE TABLET BY MOUTH TWO TIMES PER DAY FOR 7 DAYS sulfamethoxazole 800 mg-trimethoprim 160 mg tablet TAKE ONE TABLET BY MOUTH TWO TIMES PER DAY FOR 7 DAYS completed sulfamethoxazole 800 MG / trimethoprim 160 MG Oral Tablet REZA ([facility]) pregabalin 100 MG Oral Capsule pregabali n 100 mg capsule TAKE ONE CAPSULE BY MOUTH THREE TIMES A DAY MAXIMUM DAILY DOSE 3 pregabalin 100 mg capsule TAKE ONE CAPSULE BY MOUTH THREE TIMES A DAY MAXIMUM DAILY DOSE 3 completed pregabalin 100 MG Oral Capsule A THENA ([facility]) Levothyroxine Sodium 0.025 MG Oral Tablet levothyroxin e 25 mcg tablet levothyroxine 25 mcg tablet completed levothyroxine sodium 0.025 MG Oral Tablet REZA ([facility]) Cholecalciferol 1000 UNT Oral Tablet cho lecalciferol (vitamin D3) 25 mcg (1,000 unit) tablet cholecalciferol (vitamin D3) 25 mcg (1,000 unit) tablet completed cholecalciferol 0.025 MG Ora l Tablet REZA ([facility]) Levothyroxine Sodium 0.025 MG Oral Tablet levothyroxin e 25 mcg tablet levothyroxine 25 mcg tablet completed levothyroxine sodium 0.025 MG Oral Tablet REZA ([facility]) Amitriptyline Hydrochloride 25 MG Oral T ablet amitriptyline 25 mg tablet TAKE ONE TABLET BY MOUTH ONCE DAILY IN THE EVENING amitriptyline 25 mg tablet TAKE ONE TABLET BY MOUTH ONCE DAILY IN THE EVENING completed amitriptyline hydrochloride 25 MG Oral Tablet REZA ([facility]) topiramate 25 MG Oral Tablet topiramate 25 mg tablet topiramate 25 mg tablet completed topiramate 25 MG Oral Tablet REZA ([facility]) Nicotine 2 MG Chewing Gum nicotine (abad crilex) [address] ONE LOZENGE INSIDE CHEEK NEEDED FOR SMOKING CESSATION nicotine (polacrilex) [address] ONE LOZENGE INSIDE CHEEK NEEDED FOR SMOKING CESSATION completed nicotine 2 MG Chewing Gum REZA ([facility]) cetirizine hydrochloride 10 MG Oral Tablet cetirizine 10 mg tablet cetirizine 10 mg tablet completed cetirizine h ydrochloride 10 MG Oral Tablet REZA ([facility]) Atropine Sulfate 0.025 MG / Diphenoxylat e Hydrochloride 2.5 MG Oral Tablet diphenoxylate-atropine 2.5 mg-0.025 mg tablet TAKE ONE TABLET BY MOUTH FOUR TIMES A DAY NEEDED FOR DIARRHEA MAXIMUM DAILY DOSE 4 TABLETS diphenoxylate-atropine 2.5 mg-0.025 mg tablet TAKE ONE TABLET BY MOUTH FOUR TIMES A DAY NEEDED FOR DIARRHEA MAXIMUM DAILY DOSE 4 TABLETS completed atropine sulfate 0.0 25 MG / diphenoxylate hydrochloride 2.5 MG Oral Tablet [facility]EN[facility] ([facility]) topiramate 25 MG Oral Tablet topiramate 25 mg tablet topiramate 25 mg tablet completed topiramate 25 MG Oral Tablet [facility] ([facility]) cetirizine hydrochloride 10 MG Oral Tablet cetirizine 10 mg tablet cetirizine 10 mg tablet completed cetirizine h ydrochloride 10 MG Oral Tablet [facility]EN[facility] ([facility]) Acyclovir 400 MG Oral Tablet acyclovir 400 mg tablet acyclovir 4 00 mg tablet completed acyclovir 400 MG Oral Tablet [facility] ([facility]) Lidocaine 25 MG/ML / Prilocaine 25 MG/ML Topical Cream lidocaine-prilocaine 2.5 %-2.5 % topical cream lidocaine-prilocaine 2.5 %-2.5 % topical cream completed lidocaine 25 MG/ML / priloca ine 25 MG/ML Topical Cream VENICE ([facility]) pregabalin 75 MG Oral Capsule pregabalin 75 mg capsule TAKE ONE CAPSULE BY MOUTH TWICE A DAY MAXIMUM DAILY DOSE 2 pregabalin 75 mg capsule TAKE ONE CAPSUL E BY MOUTH TWICE A DAY MAXIMUM DAILY DOSE 2 completed pregabalin 75 MG Oral Capsule VENICE ([facility]) vitamin d3 25 mcg (1000 ut) tabs completed vitamin d3 25 mcg (1000 ut) tabs [facility]ENICE ([facility]) Acyclovir 400 MG Oral Tablet acyclovir 400 mg tablet acyclovir 4 00 mg tablet completed acyclovir 400 MG Oral Tablet [facility]EN[facility] ([facility]) Amoxicillin 875 MG / Clavulanate 125 MG Oral Tablet amoxicillin 875 mg-potassium clavulanate 125 mg tablet amoxicillin 875 mg-potassium clavulanate 125 mg tablet completed amoxicillin 875 MG / clavulanate 125 MG Oral Tablet [facility]ENICE ([facility]) topiramate 25 MG Oral Tablet topiramate 25 mg tablet topiramate 25 mg tablet completed topiramate 25 MG Oral Tablet [facility]EN[facility] ([facility]) vitamin d3 25 mcg (1000 ut) tabs completed vitamin d3 25 mcg (1000 ut) tabs VENICE ([facility]) duloxetine 30 MG Delayed Release Oral Ca psule duloxetine 30 mg capsule,delayed release duloxetine 30 mg capsule,delayed release completed duloxetine 30 MG Delayed Release Oral Capsule VENICE ([facility]) duloxetine 60 MG Delayed Release Oral Ca psule duloxetine 60 mg capsule,delayed release duloxetine 60 mg capsule,delayed release completed duloxetine 60 MG Delayed Release Oral Capsule VENICE ([facility]) Naproxen 500 MG Oral Tablet naproxen 500 mg tablet TAKE ONE TABLET BY MOUTH TWO TIMES A DAY naproxen 500 mg tablet TAKE ONE TABLET BY MOUTH TWO TIMES A DAY completed naproxen 500 MG Oral T ablet VENICE ([facility]) Acyclovir 400 MG Oral Tablet acyclovir 400 mg tablet acyclovir 4 00 mg tablet completed acyclovir 400 MG Oral Tablet [facility] ([facility]) Nicotine 2 MG Chewing Gum nicotine (abad crilex) [address] ONE LOZENGE INSIDE CHEEK NEEDED FOR SMOKING CESSATION nicotine (polacrilex) [address] ONE LOZENGE INSIDE CHEEK NEEDED FOR SMOKING CESSATION completed nicotine 2 MG Chewing Gum VENICE ([facility]) Fluconazole 100 MG Oral Tablet fluconazo le 100 mg tablet TAKE ONE TABLET BY MOUTH EVERY DAY FOR YEAST INFECTION fluconazole 100 mg tablet TAKE ONE TABLE T BY MOUTH EVERY DAY FOR YEAST INFECTION co mpleted fluconazole 100 MG Oral Tablet [facility]ENICE ([facility]) pregabalin 75 MG Oral Capsule pregabalin 75 mg capsule TAKE ONE CAPSULE BY MOUTH TWICE A DAY MAXIMUM DAILY DOSE 2 pregabalin 75 mg capsule TAKE ONE CAPSUL E BY MOUTH TWICE A DAY MAXIMUM DAILY DOSE 2 completed pregabalin 75 MG Oral Capsule VENICE ([facility]) pregabalin 100 MG Oral Capsule pregabali n 100 mg capsule TAKE ONE CAPSULE BY MOUTH THREE TIMES A DAY MAXIMUM DAILY DOSE 3 pregabalin 100 mg capsule TAKE ONE CAPSULE BY MOUTH THREE TIMES A DAY MAXIMUM DAILY DOSE 3 completed pregabalin 100 MG Oral Capsule A THENA ([facility]) 24 HR Nicotine 0.875 MG/HR Transdermal P atch nicotine 21 mg/24 hr daily transdermal patch [address] 1 PATCH ONTO THE SKIN EVERY 24 HOURS nicotine 21 mg/[address]dermal patch [address]ACE 1 PATCH ONTO THE SKIN EVERY 24 HOURS completed 24 HR nicotine 0.875 MG/HR T ransdermal System VENICE ([facility]) vitamin d3 25 mcg (1000 ut) tabs completed vitamin d3 25 mcg (1000 ut) tabs [facility]ENICE ([facility]) Fluconazole 100 MG Oral Tablet fluconazo le 100 mg tablet TAKE ONE TABLET BY MOUTH EVERY DAY FOR YEAST INFECTION fluconazole 100 mg tablet TAKE ONE TABLE T BY MOUTH EVERY DAY FOR YEAST INFECTION co mpleted fluconazole 100 MG Oral Tablet [facility]ENICE ([facility]) topiramate 25 MG Oral Tablet topiramate 25 mg tablet topiramate 25 mg tablet completed topiramate 25 MG Oral Tablet [facility]EN[facility] ([facility]) topiramate 50 MG Oral Tablet topiramate 50 mg tablet topiramate 50 mg tablet completed topiramate 50 MG Oral Tablet [facility]EN[facility] ([facility]) Naproxen sodium 220 MG Oral Tablet naproxen sodium 220 mg tablet naproxen sodium 220 mg tablet completed naproxen sodium 220 MG Oral Tablet [facility]EN[facility] ([facility]) duloxetine 30 MG Delayed Release Oral Ca psule duloxetine 30 mg capsule,delayed release duloxetine 30 mg capsule,delayed release completed duloxetine 30 MG Delayed Release Oral Capsule VENICE ([facility]) Lorazepam 0.5 MG Oral Tablet lorazepam 0.5 mg tablet lorazepam 0 .5 mg tablet completed lorazepam 0.5 MG Oral Tablet [facility]ENICE ([facility]) vitamin d3 25 mcg (1000 ut) tabs completed vitamin d3 25 mcg (1000 ut) tabs VENICE ([facility]) duloxetine 60 MG Delayed Release Oral Ca psule duloxetine 60 mg capsule,delayed release duloxetine 60 mg capsule,delayed release completed duloxetine 60 MG Delayed Release Oral Capsule VENICE ([facility]) tolterodine tartrate 2 MG Oral Tablet tolterodine 2 mg tablet tolterodine 2 mg tablet completed tolterodine tar trate 2 MG Oral Tablet [facility]) Naproxen 500 MG Oral Tablet naproxen 500 mg tablet TAKE ONE TABLET BY MOUTH TWO TIMES A DAY naproxen 500 mg tablet TAKE ONE TABLET BY MOUTH TWO TIMES A DAY completed naproxen 500 MG Oral T ablet REZA ([facility]) Naproxen 500 MG Oral Tablet naproxen 500 mg tablet TAKE ONE TABLET BY MOUTH TWO TIMES A DAY naproxen 500 mg tablet TAKE ONE TABLET BY MOUTH TWO TIMES A DAY completed naproxen 500 MG Oral T ablet REZA ([facility]) lidoc/m dry/sycuan SWISH AND SWALLOW 10 ML EVERY 4 HOURS NEEDED completed lidoc/m dry/sycuan REZA ([facility]) Ketorolac Tromethamine 10 MG Oral Tablet ketorolac 10 mg tablet ketorolac 10 mg tablet completed ketorolac trome thamine 10 MG Oral Tablet [facility]ENICE ([facility]) Fluconazole 100 MG Oral Tablet fluconazo le 100 mg tablet TAKE ONE TABLET BY MOUTH EVERY DAY FOR YEAST INFECTION fluconazole 100 mg tablet TAKE ONE TABLE T BY MOUTH EVERY DAY FOR YEAST INFECTION co mpleted fluconazole 100 MG Oral Tablet [facility]ENICE ([facility]) 24 HR Nicotine 0.875 MG/HR Transdermal P atch nicotine 21 mg/24 hr daily transdermal patch PLACE 1 PATCH ONTO THE SKIN EVERY 24 HOURS nicotine 21 mg/24 hr daily transdermal patch PLACE 1 PATCH ONTO THE SKIN EVERY 24 HOURS completed 24 HR nicotine 0.875 MG/HR T ransdermal System VENICE ([facility]) cetirizine hydrochloride 10 MG Oral Tablet cetirizine 10 mg tablet cetirizine 10 mg tablet completed cetirizine h ydrochloride 10 MG Oral Tablet [facility]ENICE ([facility]) topiramate 50 MG Oral Tablet topiramate 50 mg tablet topiramate 50 mg tablet completed topiramate 50 MG Oral Tablet REZA ([facility]) vitamin d3 25 mcg (1000 ut) tabs completed vitamin d3 25 mcg (1000 ut) tabs REZA ([facility]) Naproxen 500 MG Oral Tablet naproxen 500 mg tablet TAKE ONE TABLET BY MOUTH TWO TIMES A DAY naproxen 500 mg tablet TAKE ONE TABLET BY MOUTH TWO TIMES A DAY completed naproxen 500 MG Oral T ablet REZA ([facility]) Levothyroxine Sodium 0.025 MG Oral Tablet levothyroxin e 25 mcg tablet levothyroxine 25 mcg tablet completed levothyroxine sodium 0.025 MG Oral Tablet REZA ([facility]) Naproxen sodium 220 MG Oral Tablet naproxen sodium 220 mg tablet naproxen sodium 220 mg tablet completed naproxen sodium 220 MG Oral Tablet REZA ([facility]) Loratadine 10 MG Oral Tablet loratadine 10 mg tablet loratadine 10 mg tablet completed loratadine 10 MG Oral Tablet REZA ([facility]) Lorazepam 0.5 MG Oral Tablet lorazepam 0.5 mg tablet lorazepam 0 .5 mg tablet completed lorazepam 0.5 MG Oral Tablet REZA ([facility]) 24 HR venlafaxine 37.5 MG Extended Relea se Oral Capsule [Effexor] Effexor XR 37.5 mg capsule,extended release 1 capsule once daily for a week, can increase to 2 tablets daily if tolerating Effexor XR 37.5 mg capsule,extended rele ase 1 capsule once daily for a week, can increase to 2 tablets daily if tolerating completed 24 HR venlafax ine 37.5 MG Extended Release Oral Capsule [Effexor] REZA ([facility]) cetirizine hydrochloride 10 MG Oral Tablet cetirizine 10 mg tablet cetirizine 10 mg tablet completed cetirizine hydrochloride 10 MG Oral Tablet REZA ([facility]) Naproxen sodium 220 MG Oral Tablet naproxen sodium 220 mg tablet naproxen sodium 220 mg tablet completed naproxe n sodium 220 MG Oral Tablet REZA ([facility]) Lorazepam 0.5 MG Oral Tablet lorazepam 0.5 mg tablet lorazepam 0 .5 mg tablet completed lorazepam 0.5 MG Oral Tablet REZA ([facility]) Levothyroxine Sodium 0.025 MG Oral Tablet levothyroxin e 25 mcg tablet levothyroxine 25 mcg tablet completed levothyroxine sodium 0.025 MG Oral Tablet REZA ([facility]) topiramate 50 MG Oral Tablet topiramate 50 mg tablet topiramate 50 mg tablet completed topiramate 50 MG Oral Tablet REZA ([facility]) Naproxen 250 MG Oral Tablet naproxen 250 mg tablet TAKE ONE TABLET BY MOUTH TWICE A DAY NEEDED FOR PAIN naproxen 250 mg tablet TAKE ONE TABLET B Y MOUTH TWICE A DAY NEEDED FOR PAIN complet ed naproxen 250 MG Oral Tablet REZA ([facility]) tolterodine tartrate 2 MG Oral Tablet tolterodine 2 mg tablet tolterodine 2 mg tablet completed tolterodine tar trate 2 MG Oral Tablet [facility]EN[facility] ([facility]) lidoc/m dry/sycuan SWISH AND SWALLOW 10 ML EVERY 4 HOURS NEEDED completed lidoc/m dry/sycuan VENICE ([facility]) Nicotine 2 MG Chewing Gum nicotine (abad crilex) [address] ONE LOZENGE INSIDE CHEEK NEEDED FOR SMOKING CESSATION nicotine (polacrilex) [address] ONE LOZENGE INSIDE CHEEK NEEDED FOR SMOKING CESSATION completed nicotine 2 MG Chewing Gum VENICE ([facility]) Naproxen 250 MG Oral Tablet naproxen 250 mg tablet TAKE ONE TABLET BY MOUTH TWICE A DAY NEEDED FOR PAIN naproxen 250 mg tablet TAKE ONE TABLET B Y MOUTH TWICE A DAY NEEDED FOR PAIN complet ed naproxen 250 MG Oral Tablet [facility]EN[facility] ([facility]) duloxetine 30 MG Delayed Release Oral Ca psule duloxetine 30 mg capsule,delayed release duloxetine 30 mg capsule,delayed release completed duloxetine 30 MG Delayed Release Oral Capsule VENICE ([facility]) Naproxen 500 MG Oral Tablet naproxen 500 mg tablet TAKE ONE TABLET BY MOUTH TWO TIMES A DAY naproxen 500 mg tablet TAKE ONE TABLET BY MOUTH TWO TIMES A DAY completed naproxen 500 MG Oral T ablet VENICE ([facility]) topiramate 50 MG Oral Tablet topiramate 50 mg tablet topiramate 50 mg tablet completed topiramate 50 MG Oral Tablet [facility]ENICE ([facility]) pregabalin 100 MG Oral Capsule pregabali n 100 mg capsule TAKE ONE CAPSULE BY MOUTH THREE TIMES A DAY MAXIMUM DAILY DOSE 3 pregabalin 100 mg capsule TAKE ONE CAPSULE BY MOUTH THREE TIMES A DAY MAXIMUM DAILY DOSE 3 completed pregabalin 100 MG Oral Capsule A THENSocorro ([facility]) Loratadine 10 MG Oral Tablet loratadine 10 mg tablet loratadine 10 mg tablet completed loratadine 10 MG Oral Tablet [facility]ENICE ([facility]) Baclofen 10 MG Oral Tablet baclofen 10 mg tablet baclofen 10 mg tablet completed baclofen 10 MG Oral Table t [facility]ENICE ([facility]) Naproxen 500 MG Oral Tablet naproxen 500 mg tablet TAKE ONE TABLET BY MOUTH TWO TIMES A DAY naproxen 500 mg tablet TAKE ONE TABLET BY MOUTH TWO TIMES A DAY completed naproxen 500 MG Oral T ablet VENICE ([facility]) Fluconazole 100 MG Oral Tablet fluconazo le 100 mg tablet TAKE ONE TABLET BY MOUTH EVERY DAY FOR YEAST INFECTION fluconazole 100 mg tablet TAKE ONE TABLE T BY MOUTH EVERY DAY FOR YEAST INFECTION c ompleted fluconazole 100 MG Oral Tablet VENICE ([facility]) Hydroxyzine Hydrochloride 25 MG Oral Tab let hydroxyzine HCl 25 mg tablet TAKE ONE TABLET BY MOUTH THREE TIMES A DAY NEEDED FOR ANXIETY hydroxyzine HCl 25 mg tablet TAKE ONE TABLET BY MOUTH THREE TIMES A DAY NEEDED FOR ANXIETY completed hydroxyzine hydrochlor victoriano 25 MG Oral Tablet [facility]ENICE ([facility]) vitamin d3 25 mcg (1000 ut) tabs completed vitamin d3 25 mcg (1000 ut) tabs VENICE ([facility]) Oxybutynin chloride 5 MG Oral Tablet oxy butynin chloride 5 mg tablet TAKE ONE TABLET BY MOUTH TWICE A DAY oxybutynin chloride 5 mg tablet TAKE ONE TABLET BY MOUTH TWICE A DAY completed oxybutynin chloride 5 MG Oral Tablet [facility]ENICE ([facility]) Cholecalciferol 1000 UNT Oral Tablet cho lecalciferol (vitamin D3) 25 mcg (1,000 unit) tablet cholecalciferol (vitamin D3) 25 mcg (1,000 unit) tablet completed cholecalciferol 0.025 MG Ora l Tablet VENICE ([facility]) duloxetine 60 MG Delayed Release Oral Ca psule duloxetine 60 mg capsule,delayed release duloxetine 60 mg capsule,delayed release completed duloxetine 60 MG Delayed Release Oral Capsule VENICE ([facility]) topiramate 25 MG Oral Tablet topiramate 25 mg tablet topiramate 25 mg tablet completed topiramate 25 MG Oral Tablet [facility] ([facility]) 24 HR venlafaxine 37.5 MG Extended Relea se Oral Capsule [Effexor] Effexor XR 37.5 mg capsule,extended release 1 capsule once daily for a week, can increase to 2 tablets daily if tolerating Effexor XR 37.5 mg capsule,extended rele ase 1 capsule once daily for a week, can increase to 2 tablets daily if tolerating completed 24 HR venlafax ine 37.5 MG Extended Release Oral Capsule [Effexor] REZA ([facility]) pregabalin 100 MG Oral Capsule pregabali n 100 mg capsule TAKE ONE CAPSULE BY MOUTH THREE TIMES A DAY MAXIMUM DAILY DOSE 3 pregabalin 100 mg capsule TAKE ONE CAPSULE BY MOUTH THREE TIMES A DAY MAXIMUM DAILY DOSE 3 completed pregabalin 100 MG Oral Capsule A THENA ([facility]) Nystatin [id number] UNT/ML Oral Suspension n ystatin 100,000 unit/mL oral suspension TAKE 5 ML BY MOUTH FOUR TIMES A DAY FOR 10 DAYS nystatin 100,000 unit/mL oral suspension TAKE 5 ML BY MOUTH FOUR TIMES A DAY FOR 10 DAYS completed nystatin [id number] UNT/ML Oral Susp ension REZA ([facility]) pregabalin 100 MG Oral Capsule pregabali n 100 mg capsule TAKE ONE CAPSULE BY MOUTH THREE TIMES A DAY MAXIMUM DAILY DOSE 3 pregabalin 100 mg capsule TAKE ONE CAPSULE BY MOUTH THREE TIMES A DAY MAXIMUM DAILY DOSE 3 completed pregabalin 100 MG Oral Capsule A THEN ([facility]) topiramate 50 MG Oral Tablet topiramate 50 mg tablet topiramate 50 mg tablet completed topiramate 50 MG Oral Tablet REZA ([facility]) Amitriptyline Hydrochloride 25 MG Oral T ablet amitriptyline 25 mg tablet TAKE ONE TABLET BY MOUTH ONCE DAILY IN THE EVENING amitriptyline 25 mg tablet TAKE ONE TABLET BY MOUTH ONCE DAILY IN THE EVENING completed amitriptyline hydrochloride 25 MG Oral Tablet REZA ([facility]) lidoc/m dry/sycuan SWISH AND SWALLOW 10 ML EVERY 4 HOURS NEEDED completed lidoc/m dry/sycuan REZA ([facility]) Naproxen 250 MG Oral Tablet naproxen 250 mg tablet TAKE ONE TABLET BY MOUTH TWICE A DAY NEEDED FOR PAIN naproxen 250 mg tablet TAKE ONE TABLET B Y MOUTH TWICE A DAY NEEDED FOR PAIN complet ed naproxen 250 MG Oral Tablet REZA ([facility]) Amoxicillin 875 MG / Clavulanate 125 MG Oral Tablet amoxicillin 875 mg-potassium clavulanate 125 mg tablet amoxicillin 875 mg-potassium clavulanate 125 mg tablet completed amoxici llin 875 MG / clavulanate 125 MG Oral Tablet REZA ([facility]) cetirizine hydrochloride 10 MG Oral Tablet cetirizine 10 mg tablet cetirizine 10 mg tablet completed cetirizine hydrochloride 10 MG Oral Tablet REZA ([facility]) Baclofen 10 MG Oral Tablet baclofen 10 mg tablet baclofen 10 mg tablet completed baclofen 10 MG Oral Table t VENICE ([facility]) Lorazepam 0.5 MG Oral Tablet lorazepam 0.5 mg tablet lorazepam 0 .5 mg tablet completed lorazepam 0.5 MG Oral Tablet REZA ([facility]) 24 HR Nicotine 0.875 MG/HR Transdermal P atch nicotine 21 mg/24 hr daily transdermal patch PLACE 1 PATCH ONTO THE SKIN EVERY 24 HOURS nicotine 21 mg/24 [address] transdermal patch [address]ACE 1 PATCH ONTO THE SKIN EVERY 24 HOURS completed 24 HR nicotine 0.875 MG/HR T ransdermal System VENICE ([facility]) Oxybutynin chloride 5 MG Oral Tablet oxy butynin chloride 5 mg tablet TAKE ONE TABLET BY MOUTH TWICE A DAY oxybutynin chloride 5 mg tablet TAKE ONE TABLET BY MOUTH TWICE A DAY completed oxybutynin chloride 5 MG Oral Tablet REZA ([facility]) Amoxicillin 875 MG / Clavulanate 125 MG Oral Tablet amoxicillin 875 mg-potassium clavulanate 125 mg tablet amoxicillin 875 mg-potassium clavulanate 125 mg tablet completed amoxici llin 875 MG / clavulanate 125 MG Oral Tablet VENICE ([facility]) Lorazepam 0.5 MG Oral Tablet lorazepam 0.5 mg tablet lorazepam 0 .5 mg tablet completed lorazepam 0.5 MG Oral Tablet VENICE ([facility]) Naproxen sodium 220 MG Oral Tablet naproxen sodium 220 mg tablet naproxen sodium 220 mg tablet completed naproxe n sodium 220 MG Oral Tablet VENICE ([facility]) lidoc/m dry/sycuan SWISH AND SWALLOW 10 ML EVERY 4 HOURS NEEDED completed lidoc/m dry/sycuan REZA ([facility]) Amoxicillin 875 MG / Clavulanate 125 MG Oral Tablet amoxicillin 875 mg-potassium clavulanate 125 mg tablet amoxicillin 875 mg-potassium clavulanate 125 mg tablet completed amoxici llin 875 MG / clavulanate 125 MG Oral Tablet REZA ([facility]) Ketorolac Tromethamine 10 MG Oral Tablet ketorolac 10 mg tablet ketorolac 10 mg tablet completed ketorolac trome thamine 10 MG Oral Tablet VENICE ([facility]) Amitriptyline Hydrochloride 25 MG Oral T ablet amitriptyline 25 mg tablet TAKE ONE TABLET BY MOUTH ONCE DAILY IN THE EVENING amitriptyline 25 mg tablet TAKE ONE TABLET BY MOUTH ONCE DAILY IN THE EVENING completed amitriptyline hydrochloride 25 MG Oral Tablet VENICE ([facility]) Acyclovir 400 MG Oral Tablet acyclovir 400 mg tablet acyclovir 4 00 mg tablet completed acyclovir 400 MG Oral Tablet VENICE ([facility]) Amoxicillin 875 MG / Clavulanate 125 MG Oral Tablet amoxicillin 875 mg-potassium clavulanate 125 mg tablet amoxicillin 875 mg-potassium clavulanate 125 mg tablet completed amoxici llin 875 MG / clavulanate 125 MG Oral Tablet VENICE ([facility]) Ciprofloxacin 500 MG Oral Tablet ciprofloxacin 500 mg tablet ciprofloxacin 500 mg tablet completed ciprofloxaci n 500 MG Oral Tablet [facility]) Fluconazole 150 MG Oral Tablet fluconazo le 150 mg tablet TAKE ONE TABLET BY MOUTH ON DAY 1 CAN REPEAT ON DAY 3 IF NOT RESOLVED fluconazole 150 mg tablet TAKE ONE TABLET BY MOUTH ON DAY 1 CAN REPEAT ON DAY 3 IF NOT RESOLVED completed fluconazole 150 MG Oral T ablet [facility]) 24 HR Nicotine 0.875 MG/HR Transdermal P atch nicotine 21 mg/24 hr daily transdermal patch PLACE 1 PATCH ONTO THE SKIN EVERY 24 HOURS nicotine 21 mg/24 hr daily transdermal patch PLACE 1 PATCH ONTO THE SKIN EVERY 24 HOURS completed 24 HR nicotine 0.875 MG/HR T ransdermal System VENICE ([facility]) Oxybutynin chloride 5 MG Oral Tablet oxy butynin chloride 5 mg tablet TAKE ONE TABLET BY MOUTH TWICE A DAY oxybutynin chloride 5 mg tablet TAKE ONE TABLET BY MOUTH TWICE A DAY completed oxybutynin chloride 5 MG Oral Tablet [facility]) fluticasone propionate 50 mcg/actuation nasal spray,suspension [id number] completed fluticasone propionate 0.05 MG/ACTUAT Metered Dose Nasal [place] [facility]) Baclofen 10 MG Oral Tablet baclofen 10 mg tablet baclofen 10 mg tablet completed baclofen 10 MG Oral Table t VENICE ([facility]) tolterodine tartrate 2 MG Oral Tablet tolterodine 2 mg tablet tolterodine 2 mg tablet completed tolterodine tar trate 2 MG Oral Tablet VENICE ([facility]) Nystatin 322744 UNT/ML Oral Suspension n ystatin 100,000 unit/mL oral suspension TAKE 5 ML BY MOUTH FOUR TIMES A DAY FOR 10 DAYS nystatin 100,000 unit/mL oral suspension TAKE 5 ML BY MOUTH FOUR TIMES A DAY FOR 10 DAYS completed nystatin [id number] UNT/ML Oral Susp ension VENICE ([facility]) pregabalin 75 MG Oral Capsule pregabalin 75 mg capsule TAKE ONE CAPSULE BY MOUTH TWICE A DAY MAXIMUM DAILY DOSE 2 pregabalin 75 mg capsule TAKE ONE CAPSUL E BY MOUTH TWICE A DAY MAXIMUM DAILY DOSE 2 completed pregabalin 75 MG Oral Capsule VENICE ([facility]) 24 HR venlafaxine 37.5 MG Extended Relea se Oral Capsule [Effexor] Effexor XR 37.5 mg capsule,extended release 1 capsule once daily for a week, can increase to 2 tablets daily if tolerating Effexor XR 37.5 mg capsule,extended rele ase 1 capsule once daily for a week, can increase to 2 tablets daily if tolerating completed 24 HR venlafax ine 37.5 MG Extended Release Oral Capsule [Effexor] VENICE ([facility]) Lorazepam 0.5 MG Oral Tablet lorazepam 0.5 mg tablet lorazepam 0 .5 mg tablet completed lorazepam 0.5 MG Oral Tablet VENICE ([facility]) topiramate 25 MG Oral Tablet topiramate 25 mg tablet topiramate 25 mg tablet completed topiramate 25 MG Oral Tablet VENICE ([facility]) Baclofen 10 MG Oral Tablet baclofen 10 mg tablet baclofen 10 mg tablet completed baclofen 10 MG Oral Table t VENICE ([facility]) Sulfamethoxazole 800 MG / Trimethoprim 1 60 MG Oral Tablet sulfamethoxazole 800 mg-trimethoprim 160 mg tablet sulfamethoxazole 800 mg-trimethoprim 160 mg tablet completed sulfame thoxazole 800 MG / trimethoprim 160 MG Oral Tablet VENICE ([facility]) tolterodine tartrate 2 MG Oral Tablet tolterodine 2 mg tablet tolterodine 2 mg tablet completed tolterodine tar trate 2 MG Oral Tablet VENICE ([facility]) duloxetine 60 MG Delayed Release Oral Ca psule duloxetine 60 mg capsule,delayed release duloxetine 60 mg capsule,delayed release completed duloxetine 60 MG Delayed Release Oral Capsule VENICE ([facility]) Naproxen sodium 220 MG Oral Tablet naproxen sodium 220 mg tablet naproxen sodium 220 mg tablet completed naproxe n sodium 220 MG Oral Tablet VENICE ([facility]) pregabalin 75 MG Oral Capsule pregabalin 75 mg capsule TAKE ONE CAPSULE BY MOUTH TWICE A DAY MAXIMUM DAILY DOSE 2 pregabalin 75 mg capsule TAKE ONE CAPSUL E BY MOUTH TWICE A DAY MAXIMUM DAILY DOSE 2 completed pregabalin 75 MG Oral Capsule VENICE ([facility]) Naproxen 500 MG Oral Tablet naproxen 500 mg tablet TAKE ONE TABLET BY MOUTH TWO TIMES A DAY naproxen 500 mg tablet TAKE ONE TABLET BY MOUTH TWO TIMES A DAY completed naproxen 500 MG Oral T ablet [facility]) 24 HR venlafaxine 37.5 MG Extended Relea se Oral Capsule [Effexor] Effexor XR 37.5 mg capsule,extended release 1 capsule once daily for a week, can increase to 2 tablets daily if tolerating Effexor XR 37.5 mg capsule,extended rele ase 1 capsule once daily for a week, can increase to 2 tablets daily if tolerating completed 24 HR venlafax ine 37.5 MG Extended Release Oral Capsule [Effexor] VENICE ([facility]) Amoxicillin 875 MG / Clavulanate 125 MG Oral Tablet amoxicillin 875 mg-potassium clavulanate 125 mg tablet amoxicillin 875 mg-potassium clavulanate 125 mg tablet completed amoxici llin 875 MG / clavulanate 125 MG Oral Tablet VENICE ([facility]) Lorazepam 0.5 MG Oral Tablet lorazepam 0.5 mg tablet lorazepam 0 .5 mg tablet completed lorazepam 0.5 MG Oral Tablet [facility]) duloxetine 60 MG Delayed Release Oral Ca psule duloxetine 60 mg capsule,delayed release duloxetine 60 mg capsule,delayed release completed duloxetine 60 MG Delayed Release Oral Capsule VENICE ([facility]) Phenazopyridine hydrochloride 200 MG Oral Tablet phena zopyridine 200 mg tablet phenazopyridine 200 mg tablet complete d phenazopyridine hydrochloride 200 MG Oral Tablet VENICE ([facility]) duloxetine 30 MG Delayed Release Oral Ca psule duloxetine 30 mg capsule,delayed release duloxetine 30 mg capsule,delayed release completed duloxetine 30 MG Delayed Release Oral Capsule VENICE ([facility]) fluticasone propionate 50 mcg/actuation nasal spray,suspension [id number] completed fluticasone propionate 0.05 MG/ACTUAT Metered Dose Nasal [place] VENICE ([facility]) Hydroxyzine Hydrochloride 25 MG Oral Tab let hydroxyzine HCl 25 mg tablet TAKE ONE TABLET BY MOUTH THREE TIMES A DAY NEEDED FOR ANXIETY hydroxyzine HCl 25 mg tablet TAKE ONE TABLET BY MOUTH THREE TIMES A DAY NEEDED FOR ANXIETY completed hydroxyzine hydrochlor victoriano 25 MG Oral Tablet VENICE ([facility]) Loratadine 10 MG Oral Tablet loratadine 10 mg tablet loratadine 10 mg tablet completed loratadine 10 MG Oral Tablet VENICE ([facility]) Fluconazole 150 MG Oral Tablet fluconazo le 150 mg tablet TAKE 1 TABLET BY MOUTH FOR 1 DOSE fluconazole 150 mg tablet TAKE 1 TABLET BY MOUTH FOR 1 DOSE completed fluconazole 150 MG Oral T ablet VENICE ([facility]) Fluconazole 100 MG Oral Tablet fluconazo le 100 mg tablet TAKE ONE TABLET BY MOUTH EVERY DAY FOR YEAST INFECTION fluconazole 100 mg tablet TAKE ONE TABLE T BY MOUTH EVERY DAY FOR YEAST INFECTION c ompleted fluconazole 100 MG Oral Tablet VENICE ([facility]) Nystatin [id number] UNT/ML Oral Suspension n ystatin 100,000 unit/mL oral suspension TAKE 5 ML BY MOUTH FOUR TIMES A DAY FOR 10 DAYS nystatin 100,000 unit/mL oral suspension TAKE 5 ML BY MOUTH FOUR TIMES A DAY FOR 10 DAYS completed nystatin [id number] UNT/ML Oral Susp ension REZA ([facility]) 24 HR venlafaxine 37.5 MG Extended Relea se Oral Capsule [Effexor] Effexor XR 37.5 mg capsule,extended release 1 capsule once daily for a week, can increase to 2 tablets daily if tolerating Effexor XR 37.5 mg capsule,extended rele ase 1 capsule once daily for a week, can increase to 2 tablets daily if tolerating completed 24 HR venlafax ine 37.5 MG Extended Release Oral Capsule [Effexor] VENICE ([facility]) Fluconazole 100 MG Oral Tablet fluconazo le 100 mg tablet TAKE ONE TABLET BY MOUTH EVERY DAY FOR YEAST INFECTION fluconazole 100 mg tablet TAKE ONE TABLE T BY MOUTH EVERY DAY FOR YEAST INFECTION c ompleted fluconazole 100 MG Oral Tablet VENICE ([facility]) Hydroxyzine Hydrochloride 25 MG Oral Tab let hydroxyzine HCl 25 mg tablet TAKE ONE TABLET BY MOUTH THREE TIMES A DAY NEEDED FOR ANXIETY hydroxyzine HCl 25 mg tablet TAKE ONE TABLET BY MOUTH THREE TIMES A DAY NEEDED FOR ANXIETY completed hydroxyzine hydrochlor victoriano 25 MG Oral Tablet VENICE ([facility]) Levothyroxine Sodium 0.025 MG Oral Tablet levothyroxin e 25 mcg tablet levothyroxine 25 mcg tablet completed levothyroxine sodium 0.025 MG Oral Tablet VENICE ([facility]) duloxetine 30 MG Delayed Release Oral Ca psule duloxetine 30 mg capsule,delayed release duloxetine 30 mg capsule,delayed release completed duloxetine 30 MG Delayed Release Oral Capsule VENICE ([facility]) duloxetine 30 MG Delayed Release Oral Ca psule duloxetine 30 mg capsule,delayed release duloxetine 30 mg capsule,delayed release completed duloxetine 30 MG Delayed Release Oral Capsule VENICE ([facility]) Acyclovir 400 MG Oral Tablet acyclovir 400 mg tablet acyclovir 4 00 mg tablet completed acyclovir 400 MG Oral Tablet VENICE ([facility]) Sulfamethoxazole 800 MG / Trimethoprim 1 60 MG Oral Tablet sulfamethoxazole 800 mg-trimethoprim 160 mg tablet TAKE ONE TABLET BY MOUTH TWO TIMES PER DAY FOR 7 DAYS sulfamethoxazole 800 mg-trimethoprim 160 mg tablet TAKE ONE TABLET BY MOUTH TWO TIMES PER DAY FOR 7 DAYS complete d sulfamethoxazole 800 MG / trimethoprim 160 MG Oral Tablet REZA ([facility]) Nystatin [id number] UNT/ML Oral Suspension n ystatin 100,000 unit/mL oral suspension TAKE 5 ML BY MOUTH FOUR TIMES A DAY FOR 10 DAYS nystatin 100,000 unit/mL oral suspension TAKE 5 ML BY MOUTH FOUR TIMES A DAY FOR 10 DAYS completed nystatin 211457 UNT/ML Oral Susp ension VENICE ([facility]) 24 HR Nicotine 0.875 MG/HR Transdermal P atch nicotine 21 mg/24 [address] patch [address] 1 PATCH ONTO THE SKIN EVERY 24 HOURS nicotine 21 mg/[address]dermal patch [address]ACE 1 PATCH ONTO THE SKIN EVERY 24 HOURS completed 24 HR nicotine 0.875 MG/HR T ransdermal System VENICE ([facility]) Loratadine 10 MG Oral Tablet loratadine 10 mg tablet loratadine 10 mg tablet completed loratadine 10 MG Oral Tablet VENICE ([facility]) Ketorolac Tromethamine 10 MG Oral Tablet ketorolac 10 mg tablet ketorolac 10 mg tablet completed ketorolac trome thamine 10 MG Oral Tablet VENICE ([facility]) Acyclovir 400 MG Oral Tablet acyclovir 400 mg tablet acyclovir 4 00 mg tablet completed acyclovir 400 MG Oral Tablet VENICE ([facility]) tolterodine tartrate 2 MG Oral Tablet tolterodine 2 mg tablet tolterodine 2 mg tablet completed tolterodine tar trate 2 MG Oral Tablet VENICE ([facility]) topiramate 50 MG Oral Tablet topiramate 50 mg tablet topiramate 50 mg tablet completed topiramate 50 MG Oral Tablet VENICE ([facility]) Nystatin 358308 UNT/ML Oral Suspension n ystatin 100,000 unit/mL oral suspension TAKE 5 ML BY MOUTH FOUR TIMES A DAY FOR 10 DAYS nystatin 100,000 unit/mL oral suspension TAKE 5 ML BY MOUTH FOUR TIMES A DAY FOR 10 DAYS completed nystatin [id number] UNT/ML Oral Susp ension VENICE ([facility]) Lorazepam 0.5 MG Oral Tablet lorazepam 0.5 mg tablet lorazepam 0 .5 mg tablet completed lorazepam 0.5 MG Oral Tablet VENICE ([facility]) Acyclovir 400 MG Oral Tablet acyclovir 400 mg tablet acyclovir 4 00 mg tablet completed acyclovir 400 MG Oral Tablet VENICE ([facility]) Fluconazole 100 MG Oral Tablet fluconazo le 100 mg tablet TAKE ONE TABLET BY MOUTH EVERY DAY FOR YEAST INFECTION fluconazole 100 mg tablet TAKE ONE TABLE T BY MOUTH EVERY DAY FOR YEAST INFECTION c ompleted fluconazole 100 MG Oral Tablet [facility]) duloxetine 60 MG Delayed Release Oral Ca psule duloxetine 60 mg capsule,delayed release duloxetine 60 mg capsule,delayed release completed duloxetine 60 MG Delayed Release Oral Capsule VENICE ([facility]) vitamin d3 25 mcg (1000 ut) tabs completed vitamin d3 25 mcg (1000 ut) tabs VENICE ([facility]) duloxetine 30 MG Delayed Release Oral Ca psule duloxetine 30 mg capsule,delayed release duloxetine 30 mg capsule,delayed release completed duloxetine 30 MG Delayed Release Oral Capsule VENICE ([facility]) Hydroxyzine Hydrochloride 25 MG Oral Tab let hydroxyzine HCl 25 mg tablet TAKE ONE TABLET BY MOUTH THREE TIMES A DAY NEEDED FOR ANXIETY hydroxyzine HCl 25 mg tablet TAKE ONE TABLET BY MOUTH THREE TIMES A DAY NEEDED FOR ANXIETY completed hydroxyzine hydrochlor victoriano 25 MG Oral Tablet VENICE ([facility]) Lorazepam 0.5 MG Oral Tablet lorazepam 0.5 mg tablet lorazepam 0 .5 mg tablet completed lorazepam 0.5 MG Oral Tablet VENICE ([facility]) Amitriptyline Hydrochloride 25 MG Oral T ablet amitriptyline 25 mg tablet TAKE ONE TABLET BY MOUTH ONCE DAILY IN THE EVENING amitriptyline 25 mg tablet TAKE ONE TABLET BY MOUTH ONCE DAILY IN THE EVENING completed amitriptyline hydrochloride 25 MG Oral Tablet VENICE ([facility]) tolterodine tartrate 2 MG Oral Tablet tolterodine 2 mg tablet tolterodine 2 mg tablet completed tolterodine tar trate 2 MG Oral Tablet VENICE ([facility]) Loratadine 10 MG Oral Tablet loratadine 10 mg tablet loratadine 10 mg tablet completed loratadine 10 MG Oral Tablet VENICE ([facility]) Oxybutynin chloride 5 MG Oral Tablet oxy butynin chloride 5 mg tablet TAKE ONE TABLET BY MOUTH TWICE A DAY oxybutynin chloride 5 mg tablet TAKE ONE TABLET BY MOUTH TWICE A DAY completed oxybutynin chloride 5 MG Oral Tablet VENICE ([facility]) 24 HR venlafaxine 37.5 MG Extended Relea se Oral Capsule [Effexor] Effexor XR 37.5 mg capsule,extended release 1 capsule once daily for a week, can increase to 2 tablets daily if tolerating Effexor XR 37.5 mg capsule,extended rele ase 1 capsule once daily for a week, can increase to 2 tablets daily if tolerating completed 24 HR venlafax ine 37.5 MG Extended Release Oral Capsule [Effexor] VENICE ([facility]) Naproxen 250 MG Oral Tablet naproxen 250 mg tablet TAKE ONE TABLET BY MOUTH TWICE A DAY NEEDED FOR PAIN naproxen 250 mg tablet TAKE ONE TABLET B Y MOUTH TWICE A DAY NEEDED FOR PAIN complet ed naproxen 250 MG Oral Tablet REZA ([facility]) pregabalin 100 MG Oral Capsule pregabali n 100 mg capsule TAKE ONE CAPSULE BY MOUTH THREE TIMES A DAY MAXIMUM DAILY DOSE 3 pregabalin 100 mg capsule TAKE ONE CAPSULE BY MOUTH THREE TIMES A DAY MAXIMUM DAILY DOSE 3 completed pregabalin 100 MG Oral Capsule A THENA ([facility]) Hydroxyzine Hydrochloride 25 MG Oral Tab let hydroxyzine HCl 25 mg tablet TAKE ONE TABLET BY MOUTH THREE TIMES A DAY NEEDED FOR ANXIETY hydroxyzine HCl 25 mg tablet TAKE ONE TABLET BY MOUTH THREE TIMES A DAY NEEDED FOR ANXIETY completed hydroxyzine hydrochlor victoriano 25 MG Oral Tablet VENICE ([facility]) 24 HR venlafaxine 37.5 MG Extended Relea se Oral Capsule [Effexor] Effexor XR 37.5 mg capsule,extended release 1 capsule once daily for a week, can increase to 2 tablets daily if tolerating Effexor XR 37.5 mg capsule,extended rele ase 1 capsule once daily for a week, can increase to 2 tablets daily if tolerating completed 24 HR venlafax ine 37.5 MG Extended Release Oral Capsule [Effexor] VENICE ([facility]) 24 HR Nicotine 0.875 MG/HR Transdermal P atch nicotine 21 mg/24 hr daily transdermal patch PLACE 1 PATCH ONTO THE SKIN EVERY 24 HOURS nicotine 21 mg/24 hr daily transdermal patch [address]ACE 1 PATCH ONTO THE SKIN EVERY 24 HOURS completed 24 HR nicotine 0.875 MG/HR T ransdermal System VENICE ([facility]) duloxetine 60 MG Delayed Release Oral Ca psule duloxetine 60 mg capsule,delayed release duloxetine 60 mg capsule,delayed release completed duloxetine 60 MG Delayed Release Oral Capsule VENICE ([facility]) Nystatin 100 UNT/MG Topical Powder nysta tin 100,000 unit/gram topical powder APPLY TOPICALLY TWO TIMES A DAY TO AFFECTED AREAS nystatin 100,000 unit/gram topical powder APPLY TOPICALLY TWO TIMES A DAY TO AFFECTED AREAS completed nystatin 100 UNT/MG Topical Powd er VENICE ([facility]) Nicotine 2 MG Chewing Gum nicotine (abad crilex) [address] ONE LOZENGE INSIDE CHEEK NEEDED FOR SMOKING CESSATION nicotine (polacrilex) [address] ONE LOZENGE INSIDE CHEEK NEEDED FOR SMOKING CESSATION completed nicotine 2 MG Chewing Gum VENICE ([facility]) pregabalin 75 MG Oral Capsule pregabalin 75 mg capsule TAKE ONE CAPSULE BY MOUTH TWICE A DAY MAXIMUM DAILY DOSE 2 pregabalin 75 mg capsule TAKE ONE CAPSUL E BY MOUTH TWICE A DAY MAXIMUM DAILY DOSE 2 completed pregabalin 75 MG Oral Capsule VENICE ([facility]) Ciprofloxacin 500 MG Oral Tablet ciprofloxacin 500 mg tablet ciprofloxacin 500 mg tablet completed ciprofloxaci n 500 MG Oral Tablet VENICE ([facility]) cetirizine hydrochloride 10 MG Oral Tablet cetirizine 10 mg tablet cetirizine 10 mg tablet completed cetirizine hydrochloride 10 MG Oral Tablet VENICE ([facility]) Nystatin [id number] UNT/ML Oral Suspension n ystatin 100,000 unit/mL oral suspension TAKE 5 ML BY MOUTH FOUR TIMES A DAY FOR 10 DAYS nystatin 100,000 unit/mL oral suspension TAKE 5 ML BY MOUTH FOUR TIMES A DAY FOR 10 DAYS completed nystatin 193578 UNT/ML Oral Susp ension REZA ([facility]) Amoxicillin 875 MG / Clavulanate 125 MG Oral Tablet amoxicillin 875 mg-potassium clavulanate 125 mg tablet amoxicillin 875 mg-potassium clavulanate 125 mg tablet completed amoxici llin 875 MG / clavulanate 125 MG Oral Tablet VENICE ([facility]) Naproxen 250 MG Oral Tablet naproxen 250 mg tablet TAKE ONE TABLET BY MOUTH TWICE A DAY NEEDED FOR PAIN naproxen 250 mg tablet TAKE ONE TABLET B Y MOUTH TWICE A DAY NEEDED FOR PAIN complet ed naproxen 250 MG Oral Tablet REZA ([facility]) topiramate 25 MG Oral Tablet topiramate 25 mg tablet topiramate 25 mg tablet completed topiramate 25 MG Oral Tablet VENICE ([facility]) fluticasone propionate 50 mcg/actuation nasal spray,suspension [id number] completed fluticasone propionate 0.05 MG/ACTUAT Metered Dose Nasal [place] VENICE ([facility]) Amitriptyline Hydrochloride 25 MG Oral T ablet amitriptyline 25 mg tablet TAKE ONE TABLET BY MOUTH ONCE DAILY IN THE EVENING amitriptyline 25 mg tablet TAKE ONE TABLET BY MOUTH ONCE DAILY IN THE EVENING completed amitriptyline hydrochloride 25 MG Oral Tablet VENICE ([facility]) vitamin d3 25 mcg (1000 ut) tabs completed vitamin d3 25 mcg (1000 ut) tabs REZA ([facility]) Fluconazole 150 MG Oral Tablet fluconazo le 150 mg tablet TAKE ONE TABLET BY MOUTH ON DAY 1 CAN REPEAT ON DAY 3 IF NOT RESOLVED fluconazole 150 mg tablet TAKE ONE TABLET BY MOUTH ON DAY 1 CAN REPEAT ON DAY 3 IF NOT RESOLVED completed fluconazole 150 MG Oral T ablet REZA ([facility]) Nicotine 2 MG Chewing Gum nicotine (abad crilex) [address] ONE LOZENGE INSIDE CHEEK NEEDED FOR SMOKING CESSATION nicotine (polacrilex) [address] ONE LOZENGE INSIDE CHEEK NEEDED FOR SMOKING CESSATION completed nicotine 2 MG Chewing Gum VENICE ([facility]) Amoxicillin 875 MG / Clavulanate 125 MG Oral Tablet amoxicillin 875 mg-potassium clavulanate 125 mg tablet amoxicillin 875 mg-potassium clavulanate 125 mg tablet completed amoxici llin 875 MG / clavulanate 125 MG Oral Tablet VENICE ([facility]) Naproxen sodium 220 MG Oral Tablet naproxen sodium 220 mg tablet naproxen sodium 220 mg tablet completed naproxe n sodium 220 MG Oral Tablet VENICE ([facility]) SULFAMETHOXAZOLE-TRIMETHOPRIM PO Oral aborted Take by mouth Two Times Daily [facility] cetirizine hydrochloride 10 MG Oral Tablet cetirizine 10 mg tablet cetirizine 10 mg tablet completed cetirizine hydrochloride 10 MG Oral Tablet VENICE ([facility]) 24 HR venlafaxine 37.5 MG Extended Relea se Oral Capsule [Effexor] Effexor XR 37.5 mg capsule,extended release 1 capsule once daily for a week, can increase to 2 tablets daily if tolerating Effexor XR 37.5 mg capsule,extended rele ase 1 capsule once daily for a week, can increase to 2 tablets daily if tolerating completed 24 HR venlafax ine 37.5 MG Extended Release Oral Capsule [Effexor] VENICE ([facility]) Levothyroxine Sodium 0.025 MG Oral Tablet levothyroxin e 25 mcg tablet levothyroxine 25 mcg tablet completed levothyroxine sodium 0.025 MG Oral Tablet VENICE ([facility]) Amoxicillin 875 MG / Clavulanate 125 MG Oral Tablet amoxicillin 875 mg-potassium clavulanate 125 mg tablet amoxicillin 875 mg-potassium clavulanate 125 mg tablet completed amoxici llin 875 MG / clavulanate 125 MG Oral Tablet REZA ([facility]) Nystatin 076168 UNT/ML Oral Suspension n ystatin 100,000 unit/mL oral suspension TAKE 5 ML BY MOUTH FOUR TIMES A DAY FOR 10 DAYS nystatin 100,000 unit/mL oral suspension TAKE 5 ML BY MOUTH FOUR TIMES A DAY FOR 10 DAYS completed nystatin 268760 UNT/ML Oral Susp ension REZA ([facility]) Phenazopyridine hydrochloride 200 MG Oral Tablet phena zopyridine 200 mg tablet phenazopyridine 200 mg tablet complete d phenazopyridine hydrochloride 200 MG Oral Tablet REZA ([facility]) Phenazopyridine hydrochloride 200 MG Oral Tablet phena zopyridine 200 mg tablet phenazopyridine 200 mg tablet complete d phenazopyridine hydrochloride 200 MG Oral Tablet REZA ([facility]) lidoc/m dry/sycuan SWISH AND SWALLOW 10 ML EVERY 4 HOURS NEEDED completed lidoc/m dry/sycuan REZA ([facility]) Levothyroxine Sodium 0.025 MG Oral Tablet levothyroxin e 25 mcg tablet levothyroxine 25 mcg tablet completed levothyroxine sodium 0.025 MG Oral Tablet REZA ([facility]) Fluconazole 100 MG Oral Tablet fluconazo le 100 mg tablet TAKE ONE TABLET BY MOUTH EVERY DAY FOR YEAST INFECTION fluconazole 100 mg tablet TAKE ONE TABLE T BY MOUTH EVERY DAY FOR YEAST INFECTION c ompleted fluconazole 100 MG Oral Tablet REZA ([facility]) topiramate 50 MG Oral Tablet topiramate 50 mg tablet topiramate 50 mg tablet completed topiramate 50 MG Oral Tablet REZA ([facility]) Fluconazole 150 MG Oral Tablet fluconazo le 150 mg tablet TAKE 1 TABLET BY MOUTH FOR 1 DOSE fluconazole 150 mg tablet TAKE 1 TABLET BY MOUTH FOR 1 DOSE completed fluconazole 150 MG Oral T ablet REZA ([facility]) Phenazopyridine hydrochloride 200 MG Ora l Tablet phenazopyridine 200 mg tablet TAKE ONE TABLET BY MOUTH THREE TIMES A DAY FOR 2 DAYS phenazopyridine 200 mg tablet TAKE ONE TABLET BY MOUTH THREE TIMES A DAY FOR 2 DAYS completed phenazopyridine hydrochloride 20 0 MG Oral Tablet VENICE ([facility]) duloxetine 60 MG Delayed Release Oral Ca psule duloxetine 60 mg capsule,delayed release duloxetine 60 mg capsule,delayed release completed duloxetine 60 MG Delayed Release Oral Capsule VENICE ([facility]) vitamin d3 25 mcg (1000 ut) tabs completed vitamin d3 25 mcg (1000 ut) tabs VENICE ([facility]) 24 HR Nicotine 0.875 MG/HR Transdermal P atch nicotine 21 mg/[address]mal patch [address] 1 PATCH ONTO THE SKIN EVERY 24 HOURS nicotine 21 mg/[address]dermal patch [address]ACE 1 PATCH ONTO THE SKIN EVERY 24 HOURS completed 24 HR nicotine 0.875 MG/HR T ransdermal System VENICE ([facility]) Nystatin 230725 UNT/ML Oral Suspension n ystatin 100,000 unit/mL oral suspension TAKE 5 ML BY MOUTH FOUR TIMES A DAY FOR 10 DAYS nystatin 100,000 unit/mL oral suspension TAKE 5 ML BY MOUTH FOUR TIMES A DAY FOR 10 DAYS completed nystatin 174737 UNT/ML Oral Susp ension VENICE ([facility]) Ciprofloxacin 500 MG Oral Tablet ciprofloxacin 500 mg tablet ciprofloxacin 500 mg tablet completed ciprofloxaci n 500 MG Oral Tablet VENICE ([facility]) Amitriptyline Hydrochloride 25 MG Oral T ablet amitriptyline 25 mg tablet TAKE ONE TABLET BY MOUTH ONCE DAILY IN THE EVENING amitriptyline 25 mg tablet TAKE ONE TABLET BY MOUTH ONCE DAILY IN THE EVENING completed amitriptyline hydrochloride 25 MG Oral Tablet VENICE ([facility]) fluticasone propionate 50 mcg/actuation nasal spray,suspension [id number] completed fluticasone propionate 0.05 MG/ACTUAT Metered Dose Nasal [place] VENICE ([facility]) topiramate 25 MG Oral Tablet topiramate 25 mg tablet topiramate 25 mg tablet completed topiramate 25 MG Oral Tablet VENICE ([facility]) tolterodine tartrate 2 MG Oral Tablet tolterodine 2 mg tablet tolterodine 2 mg tablet completed tolterodine tar trate 2 MG Oral Tablet [facility]ENICE ([facility]) Phenazopyridine hydrochloride 200 MG Ora l Tablet phenazopyridine 200 mg tablet TAKE ONE TABLET BY MOUTH THREE TIMES A DAY FOR 2 DAYS phenazopyridine 200 mg tablet TAKE ONE TABLET BY MOUTH THREE TIMES A DAY FOR 2 DAYS completed phenazopyridine hydrochloride 20 0 MG Oral Tablet REZA ([facility]) Naproxen 250 MG Oral Tablet naproxen 250 mg tablet TAKE ONE TABLET BY MOUTH TWICE A DAY NEEDED FOR PAIN naproxen 250 mg tablet TAKE ONE TABLET B Y MOUTH TWICE A DAY NEEDED FOR PAIN complet ed naproxen 250 MG Oral Tablet REZA ([facility]) Naproxen 500 MG Oral Tablet naproxen 500 mg tablet TAKE ONE TABLET BY MOUTH TWO TIMES A DAY naproxen 500 mg tablet TAKE ONE TABLET BY MOUTH TWO TIMES A DAY completed naproxen 500 MG Oral T ablet VENICE ([facility]) Hydroxyzine Hydrochloride 25 MG Oral Tab let hydroxyzine HCl 25 mg tablet TAKE ONE TABLET BY MOUTH THREE TIMES A DAY NEEDED FOR ANXIETY hydroxyzine HCl 25 mg tablet TAKE ONE TABLET BY MOUTH THREE TIMES A DAY NEEDED FOR ANXIETY completed hydroxyzine hydrochlor victoriano 25 MG Oral Tablet VENICE ([facility]) Nicotine 2 MG Chewing Gum nicotine (abad crilex) [address] ONE [place]ZENGE INSIDE CHEEK NEEDED FOR SMOKING CESSATION nicotine (polacrilex) [address] [place] INSIDE CHEEK NEEDED FOR SMOKING CESSATION completed nicotine 2 MG Chewing Gum VENICE ([facility]) Nystatin 980775 UNT/ML Oral Suspension n ystatin 100,000 unit/mL oral suspension TAKE 5 ML BY MOUTH FOUR TIMES A DAY FOR 10 DAYS nystatin 100,000 unit/mL oral suspension TAKE 5 ML BY MOUTH FOUR TIMES A DAY FOR 10 DAYS completed nystatin 187958 UNT/ML Oral Susp ension VENICE ([facility]) Baclofen 10 MG Oral Tablet baclofen 10 mg tablet baclofen 10 mg tablet completed baclofen 10 MG Oral Table t [facility]EN[facility] ([facility]) lidoc/m dry/sycuan SWISH AND SWALLOW 10 ML EVERY 4 HOURS NEEDED completed lidoc/m dry/sycuan VENICE ([facility]) Nicotine 2 MG Chewing Gum nicotine (abad crilex) [address] [place] INSIDE CHEEK NEEDED FOR SMOKING CESSATION nicotine (polacrilex) [address] ONE [place] INSIDE CHEEK NEEDED FOR SMOKING CESSATION completed nicotine 2 MG Chewing Gum VENICE ([facility]) fluticasone propionate 50 mcg/actuation nasal spray,suspension [id number] completed fluticasone propionate 0.05 MG/ACTUAT Metered Dose Nasal [place] [facility]ENICE ([facility]) Naproxen sodium 220 MG Oral Tablet naproxen sodium 220 mg tablet naproxen sodium 220 mg tablet completed naproxe n sodium 220 MG Oral Tablet [facility]ENICE ([facility]) Amitriptyline Hydrochloride 25 MG Oral T ablet amitriptyline 25 mg tablet TAKE ONE TABLET BY MOUTH ONCE DAILY IN THE EVENING amitriptyline 25 mg tablet TAKE ONE TABLET BY MOUTH ONCE DAILY IN THE EVENING completed amitriptyline hydrochloride 25 MG Oral Tablet [facility]ENICE ([facility]) Naproxen 250 MG Oral Tablet naproxen 250 mg tablet TAKE ONE TABLET BY MOUTH TWICE A DAY NEEDED FOR PAIN naproxen 250 mg tablet TAKE ONE TABLET B Y MOUTH TWICE A DAY NEEDED FOR PAIN complet ed naproxen 250 MG Oral Tablet VENICE ([facility]) Nicotine 2 MG Chewing Gum nicotine (abad crilex) [address] [employer] [place] INSIDE CHEEK NEEDED FOR SMOKING CESSATION nicotine (polacrilex) [address] ONE [place] INSIDE CHEEK NEEDED FOR SMOKING CESSATION completed nicotine 2 MG Chewing Gum VENICE ([facility]) Loratadine 10 MG Oral Tablet loratadine 10 mg tablet loratadine 10 mg tablet completed loratadine 10 MG Oral Tablet [facility]EN[facility] ([facility]) Phenazopyridine hydrochloride 200 MG Ora l Tablet phenazopyridine 200 mg tablet TAKE ONE TABLET BY MOUTH THREE TIMES A DAY FOR 2 DAYS phenazopyridine 200 mg tablet TAKE ONE TABLET BY MOUTH THREE TIMES A DAY FOR 2 DAYS completed phenazopyridine hydrochloride 20 0 MG Oral Tablet REZA ([facility]) Naproxen 500 MG Oral Tablet naproxen 500 mg tablet TAKE ONE TABLET BY MOUTH TWO TIMES A DAY naproxen 500 mg tablet TAKE ONE TABLET BY MOUTH TWO TIMES A DAY completed naproxen 500 MG Oral T ablet VENICE ([facility]) Naproxen sodium 220 MG Oral Tablet naproxen sodium 220 mg tablet naproxen sodium 220 mg tablet completed naproxe n sodium 220 MG Oral Tablet [facility]EN[facility] ([facility]) Ciprofloxacin 500 MG Oral Tablet ciprofloxacin 500 mg tablet ciprofloxacin 500 mg tablet completed ciprofloxaci n 500 MG Oral Tablet VENICE ([facility]) Amoxicillin 875 MG / Clavulanate 125 MG Oral Tablet amoxicillin 875 mg-potassium clavulanate 125 mg tablet amoxicillin 875 mg-potassium clavulanate 125 mg tablet completed amoxici llin 875 MG / clavulanate 125 MG Oral Tablet VENICE ([facility]) Baclofen 10 MG Oral Tablet baclofen 10 mg tablet baclofen 10 mg tablet completed baclofen 10 MG Oral Table t VENICE ([facility]) pregabalin 75 MG Oral Capsule pregabalin 75 mg capsule TAKE ONE CAPSULE BY MOUTH TWICE A DAY MAXIMUM DAILY DOSE 2 pregabalin 75 mg capsule TAKE ONE CAPSUL E BY MOUTH TWICE A DAY MAXIMUM DAILY DOSE 2 completed pregabalin 75 MG Oral Capsule VENICE ([facility]) duloxetine 60 MG Delayed Release Oral Ca psule duloxetine 60 mg capsule,delayed release duloxetine 60 mg capsule,delayed release completed duloxetine 60 MG Delayed Release Oral Capsule VENICE ([facility]) cetirizine hydrochloride 10 MG Oral Tablet cetirizine 10 mg tablet cetirizine 10 mg tablet completed cetirizine hydrochloride 10 MG Oral Tablet VENICE ([facility]) Phenazopyridine hydrochloride 200 MG Ora l Tablet phenazopyridine 200 mg tablet TAKE ONE TABLET BY MOUTH THREE TIMES A DAY FOR 2 DAYS phenazopyridine 200 mg tablet TAKE ONE TABLET BY MOUTH THREE TIMES A DAY FOR 2 DAYS completed phenazopyridine hydrochloride 20 0 MG Oral Tablet [facility]) duloxetine 30 MG Delayed Release Oral Ca psule duloxetine 30 mg capsule,delayed release duloxetine 30 mg capsule,delayed release completed duloxetine 30 MG Delayed Release Oral Capsule VENICE ([facility]) Baclofen 10 MG Oral Tablet baclofen 10 mg tablet baclofen 10 mg tablet completed baclofen 10 MG Oral Table t VENICE ([facility]) fluticasone propionate 50 mcg/actuation nasal spray,suspension [id number] completed fluticasone propionate 0.05 MG/ACTUAT Metered Dose Nasal [place] VENICE ([facility]) duloxetine 30 MG Delayed Release Oral Ca psule duloxetine 30 mg capsule,delayed release duloxetine 30 mg capsule,delayed release completed duloxetine 30 MG Delayed Release Oral Capsule VENICE ([facility]) Atropine Sulfate 0.025 MG / Diphenoxylat e Hydrochloride 2.5 MG Oral Tablet diphenoxylate-atropine 2.5 mg-0.025 mg tablet TAKE ONE TABLET BY MOUTH FOUR TIMES A DAY NEEDED FOR DIARRHEA MAXIMUM DAILY DOSE 4 TABLETS diphenoxylate-atropine 2.5 mg-0.025 mg tablet TAKE ONE TABLET BY MOUTH FOUR TIMES A DAY NEEDED FOR DIARRHEA MAXIMUM DAILY DOSE 4 TABLETS completed atropine sulfate 0.0 25 MG / diphenoxylate hydrochloride 2.5 MG Oral Tablet REZA ([facility]) Oxybutynin chloride 5 MG Oral Tablet oxy butynin chloride 5 mg tablet TAKE ONE TABLET BY MOUTH TWICE A DAY oxybutynin chloride 5 mg tablet TAKE ONE TABLET BY MOUTH TWICE A DAY completed oxybutynin chloride 5 MG Oral Tablet REZA ([facility]) Cephalexin 500 MG Oral Capsule cephalexi n 500 mg capsule TAKE ONE CAPSULE BY MOUTH TWICE A DAY FOR 10 DAYS cephalexin 500 mg capsule TAKE ONE CAPSU LE BY MOUTH TWICE A DAY FOR 10 DAYS complete d cephalexin 500 MG Oral Capsule REZA ([facility]) Sulfamethoxazole 800 MG / Trimethoprim 1 60 MG Oral Tablet sulfamethoxazole 800 mg-trimethoprim 160 mg tablet TAKE ONE TABLET BY MOUTH TWO TIMES PER DAY FOR 7 DAYS sulfamethoxazole 800 mg-trimethoprim 160 mg tablet TAKE ONE TABLET BY MOUTH TWO TIMES PER DAY FOR 7 DAYS complete d sulfamethoxazole 800 MG / trimethoprim 160 MG Oral Tablet REZA ([facility]) Hydroxyzine Hydrochloride 25 MG Oral Tab let hydroxyzine HCl 25 mg tablet TAKE ONE TABLET BY MOUTH THREE TIMES A DAY NEEDED FOR ANXIETY hydroxyzine HCl 25 mg tablet TAKE ONE TABLET BY MOUTH THREE TIMES A DAY NEEDED FOR ANXIETY completed hydroxyzine hydrochlor victoriano 25 MG Oral Tablet REZA ([facility]) Ketorolac Tromethamine 10 MG Oral Tablet ketorolac 10 mg tablet ketorolac 10 mg tablet completed ketorolac trome thamine 10 MG Oral Tablet REZA ([facility]) topiramate 25 MG Oral Tablet topiramate 25 mg tablet topiramate 25 mg tablet completed topiramate 25 MG Oral Tablet VENICE ([facility]) Loratadine 10 MG Oral Tablet loratadine 10 mg tablet loratadine 10 mg tablet completed loratadine 10 MG Oral Tablet REZA ([facility]) Insurance Providers Payer name Policy type / Coverage type Policy ID Covered green party ID Covered green party's relationship to carrera Policy Carrera Plan Information [employer] Compensation [id number] Self Managed Care - [facility] P [id number] S [id number] Medicaid S [id number] S [id number] [facility] MEDICAID [id number] S [id number] Managed Care - [facility] Community Plan P [id number] S [id number] Managed Care - [facility] P [id number] S [id number] Medicaid S [id number] S [id number] [facility] I [id number] Self [id number] [facility] I [id number] Self [id number] [facility] I [id number] Self [id number] [facility] [employer] [id number] Self [id number] [facility] [id number] Self [id number] [facility] [id number] Self [id number] Managed Care - [facility] P [id number] S [id number] Medicaid S [id number] S [id number] [facility] COMMUNITY PLAN MCDHMO [id number] SP [id number] [facility]-Medicaid [id number] ANS-Medicaid [id number] ANSI-Medicaid [id number] ANSI-Medicaid [id number] [employer] COMMUNITY PLAN MCDHMO [id number] SP [id number] ANSI-Medicaid [id number] ANSI-Medicaid [id number] ANSI-Medicaid [id number] ANSI-Medicaid [id number] [employer] COMMUNITY PLAN MCDHMO [id number] SP [id number] [facility] [id number] SP [id number] MEDICAID [id number] SP [id number] [id number] SP [id number] [employer] COMMUNITY PLAN MCDHMO [id number] SP [id number] STATE INSURANCE FUND O [id number] S [id number] SELF PAY UNAVAILABLE SP UNAVAILA BLE STATE INSURANCE FUND UNAVAILABLE SP UNAVAILABLE STATE INSURANCE FUND O [id number] S [id number] SELF PAY O [id number] S [id number] MEDICAID M [id number] S [id number] [employer] B [id number] S [id number] [employer] [facility] [id number] SP [id number] [employer] [id number] SP [id number] [employer] COMMUNITY PLAN MCDHMO [id number] SP [id number] [facility] COMMUNITY PLAN MCDHMO [id number] SP [id number] [facility] COMMUNITY PLAN MCDHMO [id number] SP [id number] [facility] O [id number] S [id number] Managed Care - [facility] Community Plan S [id number] S [id number] [facility] MEDICAID [id number] S [id number] [facility](MCAID) O [id number] S [id number] [facility] [id number] SP [id number] [facility] [id number] S [id number] [facility] UNAVAILABLE [id number] S UNAVAILABLE MEDICAID [id number] SP [id number] [employer] COMMUNITY PLAN MCDO [id number] SP [id number] Problems, Conditions, and Diagnoses Code Display Name Description Problem Type Effective Dates Data Source(s) ct sim ct sim Diagnosis 05/21/2021 07:53:14 AM ED [facility] follow up follow up Diagnosis 12/27/2020 10:04:26 AM ED [facility] Z79.899 Other half-way (current) drug therapy O ther half-way (current) drug therapy Diagnosis 12/13/2020 01:15:00 PM EDT [facility] Z51.81 Encounter for therapeutic drug level mon itoring Encounter for therapeutic drug level monitoring Diagnosis 12/13/2020 01:15:00 PM EDT [facility] K83.8 Other specified diseases of biliary trac t Other specified diseases of biliary tract Diagnosis 10/25/2020 09:15:54 AM [facility] 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 Diagnosis 10/03/2020 09:35:55 AM [facility] Z17.0 Estrogen receptor positive status [ER+] Estrogen receptor positive status (ER+) Diagnosis 10/02/2020 02:21:03 PM [facility] C50.812 Malignant neoplasm of overlapping sites of left female breast Malignant neoplasm of overlapping sites of left female breast Diagnosis 02:21:03 PM [facility] breast cancer breast cancer Diagnosis 10/02/2020 05:39:00 AM [facility] F54 Psychological and behavioral factors associated with disorders or diseases classified elsewhere Psychological and behavioral factors ass ociated with disorders or diseases classified elsewhere Diagnosis 09/17/2020 08:09: 10 AM [facility] 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 gastroen teritis and colitis Diagnosis 06/27/2020 08:32:33 AM [facility] R91.8 Other nonspecific abnormal finding of tavon ng field Other nonspecific abnormal finding of lung field Diagnosis 05/21/2020 11:37:26 PM EDT [facility] Z51.11 Encounter for antineoplastic chemotherap y Encounter for antineoplastic chemotherapy Diagnosis 05/21/2020 11:37:25 PM EDT [facility] G62.9 Polyneuropathy, unspecified Polyneuropathy, unspecifie d Diagnosis 05/21/2020 11:37:24 PM EDT [facility] C50.912 Malignant neoplasm of unspecified site o f left female breast Malignant neoplasm of unspecified site of left female breast Diagnosis 04:44:32 AM EDT [facility] C50.112 Malignant neoplasm of central 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 Malignant neoplasm of central 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 Diagnosis 04/09 04:44:32 AM [facility] C50.919 Malignant neoplasm of unspecified site o f unspecified female breast Malignant neoplasm of unspecified site of unspecified female breast Diagnosis 04/12/2020 12:56:00 PM EDT [facility] L98.492 [id number] Non-pressure chronic ulcer of skin of other sites with fat layer exposed Problem 01/01/2021 12:00:00 AM EDT [facility] T81.31XD [id number] Disruption of coat cutter al operation (surgical) wound, not elsewhere classified, subsequent encounter Problem 12/12/2020 12:00: 00 AM EDT eCW1 ([facility]) T81.30XA [id number] Wound dehiscence Problem 12/09/2020 12:00:00 AM EDT eCW1 ([facility]) S21.009A [id number] Open breast wound Problem 12/09/2020 12:00:0 0 AM EDT eCW1 ([facility]) C50.812 Malignant neoplasm of overlapping sites of left female breast Malignant neoplasm of overlapping sites of left female breast Problem 12:00:00 AM EST NETSMART ([facility] ) G62.9 Polyneuropathy, unspecified Polyneuropathy, unspecifie d Problem 10/07/2020 12:00:00 AM EST [facility]SMART ([facility] ) F32.9 Major depressive disorder, single episod e, unspecified Major depressive disorder, single episode, unspecified Problem 10/07/2020 12:00:00 AM EST [facility]SMART ([facility]) F17.210 Nicotine dependence, cigarettes, uncompl icated Nicotine dependence, cigarettes, uncomplicated Problem 10/07/2020 12:00:00 AM EST NETSMAR T ([facility]) Z48.01 Encounter for change or removal of surgi tony wound dressing Encounter for change or removal of surgical wound dressing Problem 10/07/2020 12:0 0:00 AM EST [facility]SMART ([facility]) 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 Problem 10/07/2020 12:00:00 AM EST [facility]SMART ([facility]) Z17.0 Estrogen receptor positive status [ER+] Estrogen receptor positive status [ER+] Problem 10/07/2020 12:00:00 AM EST [facility]SMART ([facility]) 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 sic longterm (current) use of opiate analgesic Problem 10/07/2020 12:00:00 AM EST [facility]SMART ([facility]) Z91.81 History of falling History of falling Problem 12:00:00 AM EST NETSMART ([facility]) Z48.3 Aftercare following surgery for neoplasm Aftercare following surgery for neoplasm Problem 10/07/2020 12:00:00 AM EST [facility]SMART ([facility]) C50.919 Malignant neoplasm of unspecified site o f unspecified female breast Malignant neoplasm of unspecified site of unspecified female breast Problem 10/02/2020 12:00:00 AM EST NETSMART ([facility] ) [id number] Glaucoma Glaucoma Problem 09/24/2020 12:00:00 AM BANDAR COBB ([facility]) [id number] Glaucoma Glaucoma Problem 09/24/2020 12:00:00 AM [facility] ([facility]) [id number] Glaucoma Glaucoma Problem 09/24/2020 12:00:00 AM [facility] ([facility]) [id number] Glaucoma Glaucoma Problem 09/24/2020 12:00:00 AM [facility] ([facility]) [id number] Glaucoma Glaucoma Problem 09/24/2020 12:00:00 AM [facility] ([facility]) [id number] Glaucoma Glaucoma Problem 09/24/2020 12:00:00 AM [facility] ([facility]) [id number] Glaucoma Glaucoma Problem 09/24/2020 12:00:00 AM [facility] ([facility]) [id number] Glaucoma Glaucoma Problem 09/24/2020 12:00:00 AM [facility] ([facility]) [id number] Glaucoma Glaucoma Problem 09/24/2020 12:00:00 AM BANDAR COBB ([facility]) 722.93 Intervertebral disc disorders with radic ulopathy, lumbar region Intervertebral disc disorders with radiculopathy, lumbar region 04/24/2020 12:43:34 PM EDT [facility] 311 Chronic depression Chronic depression 0 12:43:34 PM EDT [facility] 300.02 Generalized anxiety disorder Generalized anxiety disor owen 04/24/2020 12:43:34 PM EDT [facility] 346.70 Chronic migraine without aura Chronic migraine without aura 04/24/2020 12:43:34 PM EDT [facility] [id number] Cystocele, midline Cystocele, midline 0 12:43:34 PM EDT [facility] 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, in remission Histo ry of drug abuse 04/24/2020 12:43:34 PM EDT [facility] 492.8 Other emphysema Other emphysema 04/24/2020 12:4 3:34 PM EDT [facility] C50.819 Malignant neoplasm of overlapping sites of unspecified female breast Malignant neoplasm of overlapping sites of unspecified female breast 04/24/2020 12:43:34 PM EDT [facility] [id number] Polyneuropathy, unspecified Polyneuropathy, unspecifie d 04/24/2020 11:15:55 AM EDT [facility] [id number] Radiculopathy due to lumbar intervertebr al disc disorder Radiculopathy Due to Lumbar Intervertebral Disc Disorder Problem 04/24/2020 12:00:00 AM EDT REZA ([facility]) [id number] Clinical finding Clinical Finding Problem 020 12:00:00 AM EDT - 09/16/2020 12:00:00 AM DODIE COBB ([facility]) [id number] Midline cystocele Midline Cystocele Problem 04/24 12:00:00 AM EDT REZA ([facility]) 68101486 Pulmonary emphysema Pulmonary Emphysema Problem 0 04/24/2020 12:00:00 AM EDT REZA ([facility]) [id number] Neuropathy Neuropathy Problem 04/24/2020 12:00:00 AM ED T REZA ([facility]) [id number] Chronic migraine without aura Chronic Migraine w ithout Aura Problem 04/24/2020 12:00:00 AM EDT REZA ([facility]) 15846111 Dysthymia Dysthymia Problem 04/24/2020 12:00:00 AM ED T REZA ([facility]) 96360834 Generalized anxiety disorder Generalized Anxiety Disor owen Problem 04/24/2020 12:00:00 AM EDT REZA ([facility]) [id number] Radiculopathy due to lumbar intervertebr al disc disorder Radiculopathy Due to Lumbar Intervertebral Disc Disorder Problem 04/24/2020 12:00:00 AM EDT REZA ([facility]) 026207125 Clinical finding Clinical Finding Problem 020 12:00:00 AM EDT - 09/16/2020 12:00:00 AM DODIE COBB ([facility]) [id number] Midline cystocele Midline Cystocele Problem 04/24 12:00:00 AM EDT REZA ([facility]) 89422767 Pulmonary emphysema Pulmonary Emphysema Problem 0 04/24/2020 12:00:00 AM EDT REZA ([facility]) 226542040 Neuropathy Neuropathy Problem 04/24/2020 12:00:00 AM ED T REZA ([facility]) [id number] Chronic migraine without aura Chronic Migraine w ithout Aura Problem 04/24/2020 12:00:00 AM EDT REZA ([facility]) 80025714 Dysthymia Dysthymia Problem 04/24/2020 12:00:00 AM ED T REZA ([facility]) 95768332 Generalized anxiety disorder Generalized Anxiety Disor owen Problem 04/24/2020 12:00:00 AM EDT REZA ([facility]) [id number] Radiculopathy due to lumbar intervertebr al disc disorder Radiculopathy Due to Lumbar Intervertebral Disc Disorder Problem 04/24/2020 12:00:00 AM EDT REZA ([facility]) [id number] Clinical finding Clinical Finding Problem 12:00:00 AM EDT - 09/16/2020 12:00:00 AM EST REZA ([facility]) 604848808 Midline cystocele Midline Cystocele Problem 04/24 12:00:00 AM EDT REZA ([facility]) 65647157 Pulmonary emphysema Pulmonary Emphysema Problem 0 04/24/2020 12:00:00 AM EDT REZA ([facility]) [id number] Neuropathy Neuropathy Problem 04/24/2020 12:00:00 AM ED T REZA ([facility]) [id number] Chronic migraine without aura Chronic Migraine w ithout Aura Problem 04/24/2020 12:00:00 AM EDT REZA ([facility]) 06708344 Dysthymia Dysthymia Problem 04/24/2020 12:00:00 AM ED T REZA ([facility]) 93979186 Generalized anxiety disorder Generalized Anxiety Disor owen Problem 04/24/2020 12:00:00 AM EDT REZA ([facility]) [id number] Radiculopathy due to lumbar intervertebr al disc disorder Radiculopathy Due to Lumbar Intervertebral Disc Disorder Problem 04/24/2020 12:00:00 AM EDT REZA ([facility]) 777115931 Clinical finding Clinical Finding Problem 020 12:00:00 AM EDT - 09/16/2020 12:00:00 AM EST REZA ([facility]) [id number] Midline cystocele Midline Cystocele Problem 04/24 12:00:00 AM EDT REZA ([facility]) 49974553 Pulmonary emphysema Pulmonary Emphysema Problem 0 04/24/2020 12:00:00 AM EDT REZA ([facility]) 718828500 Neuropathy Neuropathy Problem 04/24/2020 12:00:00 AM ED T REZA ([facility]) [id number] Chronic migraine without aura Chronic Migraine w ithout Aura Problem 04/24/2020 12:00:00 AM EDT REZA ([facility]) 31747963 Dysthymia Dysthymia Problem 04/24/2020 12:00:00 AM ED T REZA ([facility]) [id number] Generalized anxiety disorder Generalized Anxiety Disor owen Problem 04/24/2020 12:00:00 AM EDT REZA ([facility]) [id number] Radiculopathy due to lumbar intervertebr al disc disorder Radiculopathy Due to Lumbar Intervertebral Disc Disorder Problem 04/24/2020 12:00:00 AM EDT REZA ([facility]) 499134746 Clinical finding Clinical Finding Problem 020 12:00:00 AM EDT - 09/16/2020 12:00:00 AM EST REZA ([facility]) 039180940 Midline cystocele Midline Cystocele Problem 04/24 12:00:00 AM EDT REZA ([facility]) 92412139 Pulmonary emphysema Pulmonary Emphysema Problem 0 04/24/2020 12:00:00 AM EDT REZA ([facility]) 890408567 Neuropathy Neuropathy Problem 04/24/2020 12:00:00 AM ED T REZA ([facility]) [id number] Chronic migraine without aura Chronic Migraine w ithout Aura Problem 04/24/2020 12:00:00 AM EDT REZA ([facility]) 70463583 Dysthymia Dysthymia Problem 04/24/2020 12:00:00 AM ED T REZA ([facility]) 49965792 Generalized anxiety disorder Generalized Anxiety Disor owen Problem 04/24/2020 12:00:00 AM EDT REZA ([facility]) [id number] Radiculopathy due to lumbar intervertebr al disc disorder Radiculopathy Due to Lumbar Intervertebral Disc Disorder Problem 04/24/2020 12:00:00 AM EDT REZA ([facility]) 547804513 Clinical finding Clinical Finding Problem 020 12:00:00 AM EDT - 09/16/2020 12:00:00 AM EST REZA ([facility]) 915927270 Midline cystocele Midline Cystocele Problem 04/24 12:00:00 AM EDT REZA ([facility]) 22587035 Pulmonary emphysema Pulmonary Emphysema Problem 0 04/24/2020 12:00:00 AM EDT REZA ([facility]) 120072018 Neuropathy Neuropathy Problem 04/24/2020 12:00:00 AM ED T REZA ([facility]) [id number] Chronic migraine without aura Chronic Migraine w ithout Aura Problem 04/24/2020 12:00:00 AM EDT REZA ([facility]) 48949330 Dysthymia Dysthymia Problem 04/24/2020 12:00:00 AM ED T REZA ([facility]) 47528583 Generalized anxiety disorder Generalized Anxiety Disor owen Problem 04/24/2020 12:00:00 AM EDT REZA ([facility]) [id number] Radiculopathy due to lumbar intervertebr al disc disorder Radiculopathy Due to Lumbar Intervertebral Disc Disorder Problem 04/24/2020 12:00:00 AM EDT REZA ([facility]) [id number] Clinical finding Clinical Finding Problem 020 12:00:00 AM EDT - 09/16/2020 12:00:00 AM EST REZA ([facility]) [id number] Midline cystocele Midline Cystocele Problem 04/24 12:00:00 AM EDT REZA ([facility]) 59682415 Pulmonary emphysema Pulmonary Emphysema Problem 0 04/24/2020 12:00:00 AM EDT REZA ([facility]) [id number] Neuropathy Neuropathy Problem 04/24/2020 12:00:00 AM ED T REZA ([facility]) [id number] Chronic migraine without aura Chronic Migraine w ithout Aura Problem 04/24/2020 12:00:00 AM EDT REZA ([facility]) [id number] Dysthymia Dysthymia Problem 04/24/2020 12:00:00 AM ED T REZA ([facility]) 70230686 Generalized anxiety disorder Generalized Anxiety Disor owen Problem 04/24/2020 12:00:00 AM EDT REZA ([facility]) [id number] Radiculopathy due to lumbar intervertebr al disc disorder Radiculopathy Due to Lumbar Intervertebral Disc Disorder Problem 04/24/2020 12:00:00 AM EDT REZA ([facility]) [id number] Clinical finding Clinical Finding Problem 12:00:00 AM EDT - 09/16/2020 12:00:00 AM EST REZA ([facility]) [id number] Midline cystocele Midline Cystocele Problem 04/24 12:00:00 AM EDT REZA ([facility]) [id number] Pulmonary emphysema Pulmonary Emphysema Problem 0 04/24/2020 12:00:00 AM EDT REZA ([facility]) 612903716 Neuropathy Neuropathy Problem 04/24/2020 12:00:00 AM ED T REZA ([facility]) [id number] Chronic migraine without aura Chronic Migraine w ithout Aura Problem 04/24/2020 12:00:00 AM EDT REZA ([facility]) 03300426 Dysthymia Dysthymia Problem 04/24/2020 12:00:00 AM ED T REZA ([facility]) 90013614 Generalized anxiety disorder Generalized Anxiety Disor owen Problem 04/24/2020 12:00:00 AM EDT REZA ([facility]) [id number] Radiculopathy due to lumbar intervertebr al disc disorder Radiculopathy Due to Lumbar Intervertebral Disc Disorder Problem 04/24/2020 12:00:00 AM EDT REZA ([facility]) 269681307 Clinical finding Clinical Finding Problem 12:00:00 AM EDT - 09/16/2020 12:00:00 AM EST REZA ([facility]) [id number] Midline cystocele Midline Cystocele Problem 04/24 12:00:00 AM EDT REZA ([facility]) 36793133 Pulmonary emphysema Pulmonary Emphysema Problem 0 04/24/2020 12:00:00 AM EDT REZA ([facility]) 353872526 Neuropathy Neuropathy Problem 04/24/2020 12:00:00 AM ED T REZA ([facility]) [id number] Chronic migraine without aura Chronic Migraine w ithout Aura Problem 04/24/2020 12:00:00 AM EDT REZA ([facility]) 80899226 Dysthymia Dysthymia Problem 04/24/2020 12:00:00 AM ED T REZA ([facility]) 51969827 Generalized anxiety disorder Generalized Anxiety Disor owen Problem 04/24/2020 12:00:00 AM EDT REZA ([facility]) [id number] Procedure by method Procedure by Method Problem 0 01/23/2019 12:00:00 AM EDT - 07/29/2020 12:00:00 AM EST REZA ([facility]) [id number] Chest pain Chest Pain Problem 01/23/2019 12:0 0:00 AM EDT - 09/24/2020 12:00:00 AM EST REZA ([facility]) [id number] Procedure by method Procedure by Method Problem 0 01/23/2019 12:00:00 AM EDT - 07/29/2020 12:00:00 AM EST REZA ([facility]) [id number] Chest pain Chest Pain Problem 01/23/2019 12:0 0:00 AM EDT - 09/24/2020 12:00:00 AM EST REZA ([facility]) [id number] Procedure by method Procedure by Method Problem 0 01/23/2019 12:00:00 AM EDT - 07/29/2020 12:00:00 AM EST REZA ([facility]) [id number] Chest pain Chest Pain Problem 01/23/2019 12:0 0:00 AM EDT - 09/24/2020 12:00:00 AM EST ERZA ([facility]) [id number] Procedure by method Procedure by Method Problem 0 01/23/2019 12:00:00 AM EDT - 07/29/2020 12:00:00 AM EST REZA ([facility]) [id number] Chest pain Chest Pain Problem 01/23/2019 12:0 0:00 AM EDT - 09/24/2020 12:00:00 AM EST REZA ([facility]) [id number] Procedure by method Procedure by Method Problem 0 01/23/2019 12:00:00 AM EDT - 07/29/2020 12:00:00 AM EST REZA ([facility]) [id number] Chest pain Chest Pain Problem 01/23/2019 12:0 0:00 AM EDT - 09/24/2020 12:00:00 AM EST REZA ([facility]) [id number] Procedure by method Procedure by Method Problem 0 01/23/2019 12:00:00 AM EDT - 07/29/2020 12:00:00 AM EST REZA ([facility]) [id number] Chest pain Chest Pain Problem 01/23/2019 12:0 0:00 AM EDT - 09/24/2020 12:00:00 AM EST REZA ([facility]) [id number] Procedure by method Procedure by Method Problem 0 01/23/2019 12:00:00 AM EDT - 07/29/2020 12:00:00 AM EST REZA ([facility]) [id number] Chest pain Chest Pain Problem 01/23/2019 12:0 0:00 AM EDT - 09/24/2020 12:00:00 AM EST REZA ([facility]) [id number] Procedure by method Procedure by Method Problem 0 01/23/2019 12:00:00 AM EDT - 07/29/2020 12:00:00 AM EST REZA ([facility]) [id number] Chest pain Chest Pain Problem 01/23/2019 12:0 0:00 AM EDT - 09/24/2020 12:00:00 AM EST REZA ([facility]) [id number] Procedure by method Procedure by Method Problem 0 01/23/2019 12:00:00 AM EDT - 07/29/2020 12:00:00 AM EST REZA ([facility]) [id number] Procedure by method Procedure by Method Problem 0 01/23/2019 12:00:00 AM EDT - 07/29/2020 12:00:00 AM EST REZA ([facility]) [id number] Chest pain Chest Pain Problem 01/23/2019 12:0 0:00 AM EDT - 09/24/2020 12:00:00 AM EST REZA ([facility]) [id number] Syphilis test finding Syphilis Test Finding Problem 01/13/2019 12:00:00 AM EDT - 07/29/2020 12:00:00 AM EST REZA ([facility]) [id number] Acute vaginitis Acute Vaginitis Problem 9 12:00:00 AM EDT - 07/29/2020 12:00:00 AM EST REZA ([facility]) [id number] Syphilis test finding Syphilis Test Finding Problem 01/13/2019 12:00:00 AM EDT - 07/29/2020 12:00:00 AM EST REZA ([facility]) [id number] Acute vaginitis Acute Vaginitis Problem 9 12:00:00 AM EDT - 07/29/2020 12:00:00 AM EST REZA ([facility]) [id number] Syphilis test finding Syphilis Test Finding Problem 01/13/2019 12:00:00 AM EDT - 07/29/2020 12:00:00 AM EST REZA ([facility]) [id number] Acute vaginitis Acute Vaginitis Problem 9 12:00:00 AM EDT - 07/29/2020 12:00:00 AM EST REZA ([facility]) [id number] Syphilis test finding Syphilis Test Finding Problem 01/13/2019 12:00:00 AM EDT - 07/29/2020 12:00:00 AM EST REZA ([facility]) 53283697 Acute vaginitis Acute Vaginitis Problem 9 12:00:00 AM EDT - 07/29/2020 12:00:00 AM EST REZA ([facility]) [id number] Syphilis test finding Syphilis Test Finding Problem 01/13/2019 12:00:00 AM EDT - 07/29/2020 12:00:00 AM EST REZA ([facility]) 99481106 Acute vaginitis Acute Vaginitis Problem 9 12:00:00 AM EDT - 07/29/2020 12:00:00 AM EST REZA ([facility]) [id number] Syphilis test finding Syphilis Test Finding Problem 01/13/2019 12:00:00 AM EDT - 07/29/2020 12:00:00 AM EST REZA ([facility]) [id number] Acute vaginitis Acute Vaginitis Problem 9 12:00:00 AM EDT - 07/29/2020 12:00:00 AM EST REZA ([facility]) [id number] Syphilis test finding Syphilis Test Finding Problem 01/13/2019 12:00:00 AM EDT - 07/29/2020 12:00:00 AM EST REZA ([facility]) [id number] Acute vaginitis Acute Vaginitis Problem 9 12:00:00 AM EDT - 07/29/2020 12:00:00 AM EST REZA ([facility]) [id number] Syphilis test finding Syphilis Test Finding Problem 01/13/2019 12:00:00 AM EDT - 07/29/2020 12:00:00 AM EST REZA ([facility]) [id number] Acute vaginitis Acute Vaginitis Problem 9 12:00:00 AM EDT - 07/29/2020 12:00:00 AM EST REZA ([facility]) [id number] Syphilis test finding Syphilis Test Finding Problem 01/13/2019 12:00:00 AM EDT - 07/29/2020 12:00:00 AM EST REZA ([facility]) [id number] Acute vaginitis Acute Vaginitis Problem 9 12:00:00 AM EDT - 07/29/2020 12:00:00 AM EST REZA ([facility]) [id number] Syphilis test finding Syphilis Test Finding Problem 01/13/2019 12:00:00 AM EDT - 07/29/2020 12:00:00 AM EST REZA ([facility]) [id number] Acute vaginitis Acute Vaginitis Problem 12:00:00 AM EDT - 07/29/2020 12:00:00 AM EST REZA ([facility]) [id number] Screening procedure Screening Procedure Problem 0 12/27/2018 12:00:00 AM EDT - 07/29/2020 12:00:00 AM EST REZA ([facility]) [id number] Breast neoplasm screening status Breast Neoplasm Screening Status Problem 12/27/2018 12:00:00 AM EDT - 07/29/2020 12:00:00 AM BANDAR COBB ([facility]) [id number] Endocrine/metabolic screening Endocrine/metabolic Scre ening Problem 12/27/2018 12:00:00 AM EDT - 07/29/2020 12:00:00 AM EST REZA ([facility]) 69071099 Acute cystitis Acute Cystitis Problem 12/27/2018 12:00:00 AM EDT - 07/29/2020 12:00:00 AM EST REZA ([facility]) [id number] Screening procedure Screening Procedure Problem 0 12/27/2018 12:00:00 AM EDT - 07/29/2020 12:00:00 AM EST REZA ([facility]) [id number] Breast neoplasm screening status Breast Neoplasm Screening Status Problem 12/27/2018 12:00:00 AM EDT - 07/29/2020 12:00:00 AM BANDAR COBB ([facility]) [id number] Endocrine/metabolic screening Endocrine/metabolic Scre ening Problem 12/27/2018 12:00:00 AM EDT - 07/29/2020 12:00:00 AM EST REZA ([facility]) [id number] Acute cystitis Acute Cystitis Problem 12/27/2018 12:00:00 AM EDT - 07/29/2020 12:00:00 AM EST REZA ([facility]) [id number] Screening procedure Screening Procedure Problem 0 12/27/2018 12:00:00 AM EDT - 07/29/2020 12:00:00 AM EST REZA ([facility]) [id number] Breast neoplasm screening status Breast Neoplasm Screening Status Problem 12/27/2018 12:00:00 AM EDT - 07/29/2020 12:00:00 AM BANDAR COBB ([facility]) 764837454 Endocrine/metabolic screening Endocrine/metabolic Scre ening Problem 12/27/2018 12:00:00 AM EDT - 07/29/2020 12:00:00 AM EST REZA ([facility]) 29998291 Acute cystitis Acute Cystitis Problem 12/27/2018 12:00:00 AM EDT - 07/29/2020 12:00:00 AM EST REZA ([facility]) [id number] Acute cystitis Acute Cystitis Problem 12/27/2018 12:00:00 AM EDT - 07/29/2020 12:00:00 AM EST REZA ([facility]) [id number] Screening procedure Screening Procedure Problem 0 12/27/2018 12:00:00 AM EDT - 07/29/2020 12:00:00 AM EST REZA ([facility]) [id number] Breast neoplasm screening status Breast Neoplasm Screening Status Problem 12/27/2018 12:00:00 AM EDT - 07/29/2020 12:00:00 AM BANDAR COBB ([facility]) [id number] Endocrine/metabolic screening Endocrine/metabolic Scre ening Problem 12/27/2018 12:00:00 AM EDT - 07/29/2020 12:00:00 AM EST REZA ([facility]) [id number] Acute cystitis Acute Cystitis Problem 12/27/2018 12:00:00 AM EDT - 07/29/2020 12:00:00 AM EST REZA ([facility]) [id number] Screening procedure Screening Procedure Problem 0 12/27/2018 12:00:00 AM EDT - 07/29/2020 12:00:00 AM EST REZA ([facility]) [id number] Breast neoplasm screening status Breast Neoplasm Screening Status Problem 12/27/2018 12:00:00 AM EDT - 07/29/2020 12:00:00 AM BANDAR COBB ([facility]) [id number] Endocrine/metabolic screening Endocrine/metabolic Scre ening Problem 12/27/2018 12:00:00 AM EDT - 07/29/2020 12:00:00 AM EST REZA ([facility]) [id number] Acute cystitis Acute Cystitis Problem 12/27/2018 12:00:00 AM EDT - 07/29/2020 12:00:00 AM EST REZA ([facility]) [id number] Screening procedure Screening Procedure Problem 0 12/27/2018 12:00:00 AM EDT - 07/29/2020 12:00:00 AM EST REZA ([facility]) [id number] Breast neoplasm screening status Breast Neoplasm Screening Status Problem 12/27/2018 12:00:00 AM EDT - 07/29/2020 12:00:00 AM BANDAR COBB ([facility]) 230603549 Endocrine/metabolic screening Endocrine/metabolic Scre ening Problem 12/27/2018 12:00:00 AM EDT - 07/29/2020 12:00:00 AM EST REZA ([facility]) 44249929 Acute cystitis Acute Cystitis Problem 12/27/2018 12:00:00 AM EDT - 07/29/2020 12:00:00 AM EST REZA ([facility]) [id number] Screening procedure Screening Procedure Problem 0 12/27/2018 12:00:00 AM EDT - 07/29/2020 12:00:00 AM EST REZA ([facility]) [id number] Breast neoplasm screening status Breast Neoplasm Screening Status Problem 12/27/2018 12:00:00 AM EDT - 07/29/2020 12:00:00 AM BANDAR COBB ([facility]) [id number] Endocrine/metabolic screening Endocrine/metabolic Scre ening Problem 12/27/2018 12:00:00 AM EDT - 07/29/2020 12:00:00 AM EST REZA ([facility]) [id number] Acute cystitis Acute Cystitis Problem 12/27/2018 12:00:00 AM EDT - 07/29/2020 12:00:00 AM EST REZA ([facility]) [id number] Screening procedure Screening Procedure Problem 0 12/27/2018 12:00:00 AM EDT - 07/29/2020 12:00:00 AM EST REZA ([facility]) [id number] Breast neoplasm screening status Breast Neoplasm Screening Status Problem 12/27/2018 12:00:00 AM EDT - 07/29/2020 12:00:00 AM BANDAR COBB ([facility]) [id number] Endocrine/metabolic screening Endocrine/metabolic Scre ening Problem 12/27/2018 12:00:00 AM EDT - 07/29/2020 12:00:00 AM EST REZA ([facility]) 11550643 Acute cystitis Acute Cystitis Problem 12/27/2018 12:00:00 AM EDT - 07/29/2020 12:00:00 AM EST REZA ([facility]) [id number] Screening procedure Screening Procedure Problem 0 12/27/2018 12:00:00 AM EDT - 07/29/2020 12:00:00 AM EST REZA ([facility]) [id number] Breast neoplasm screening status Breast Neoplasm Screening Status Problem 12/27/2018 12:00:00 AM EDT - 07/29/2020 12:00:00 AM BANDAR COBB ([facility]) [id number] Endocrine/metabolic screening Endocrine/metabolic Scre ening Problem 12/27/2018 12:00:00 AM EDT - 07/29/2020 12:00:00 AM EST REZA ([facility]) 10407921 Acute cystitis Acute Cystitis Problem 12/27/2018 12:00:00 AM EDT - 07/29/2020 12:00:00 AM EST REZA ([facility]) [id number] Screening procedure Screening Procedure Problem 0 12/27/2018 12:00:00 AM EDT - 07/29/2020 12:00:00 AM EST REZA ([facility]) [id number] Breast neoplasm screening status Breast Neoplasm Screening Status Problem 12/27/2018 12:00:00 AM EDT - 07/29/2020 12:00:00 AM BANDAR COBB ([facility]) [id number] Endocrine/metabolic screening Endocrine/metabolic Scre ening Problem 12/27/2018 12:00:00 AM EDT - 07/29/2020 12:00:00 AM EST REZA ([facility]) Surgeries/Procedures Procedure Description Date Indications Data Source(s) OFFICE OUTPATIENT VISIT 25 MINUTES 04/25/2021 12:00:00 AM EDT [facility] ([facility]) TOBACCO USE CESSATION INTERMEDIATE 3-10 MINUTES 2020 12:00:00 AM EDT [facility] ([facility], ) ESTRADIOL <td>ESTRADIOL GENERATION 3 > =12YO</td><td>Routine</td><td>04/02/2021 11:22 AM EDT</td><td></td><td> </td> 04/02/2021 11:22:00 AM EDT [facility] BLOOD COUNT COMPLETE AUTO&AUTO DIFRNTL WBC COUNT <td>C BC AND DIFFERENTIAL</td><td>STAT</td><td>04/02/2021 11:22 AM EDT</td><td> Malignant neoplasm of overlapping sites of left breast in female, estrogen receptor positive</td><td> </td> 04/02/2021 11:22:00 AM EDT Malignant neoplasm of overlapping sites of left breast in female, estrogen receptor positive [facility] Malignant neoplasm of overlapping sites of left breast in female, estrogen receptor positive GONADOTROPIN FOLLICLE STIMULATING HORMONE <td>FOLLICLE STIMULATING HORMONE</td><td>Routine</td><td>04/02/2021 11:22 AM EDT</td><td></td><td> </td> 04/02/2021 11:22:00 AM EDT [facility] COMPREHENSIVE METABOLIC PANEL <td>COMPREHENSIVE METABO LIC PANEL</td><td>STAT</td><td>04/02/2021 11:22 AM EDT</td><td> Malignant neoplasm of overlapping sites of left breast in female, estrogen receptor positive</td><td> </td> 04/02/2021 11:22:00 AM EDT Malignant neoplasm of overlapping sites of left breast in female, estrogen receptor positive [facility] Malignant neoplasm of overlapping sites of left breast in female, estrogen receptor positive CARD BLOOD POOL GATED PLANAR 1 STUDY REST/STRESS <td>N M CARDIAC VENTRICULOGRAM EF AT REST [id number]</td><td>Routine</td><td>02/18/2021 3:00 PM EDT</td><td> Malignant neoplasm of overlapping sites of left breast in female, estrogen receptor positive</td><td> </td> 02/18/2021 03:00:00 PM EDT Malignant neoplasm of overlapping sites of left breast in female, estrogen receptor positive [facility] Malignant neoplasm of overlapping sites of left breast in female, estrogen receptor positive FINE NEEDLE ASPIRATION W/O IMAGING GUIDANCE 12/31/2020 12:00:00 AM EDT eCW1 ([facility]) FINE NEEDLE ASPIRATION W/O IMAGING GUIDANCE 12/24/2020 12:00:00 AM EDT eCW1 ([facility]) FINE NEEDLE ASPIRATION W/O IMAGING GUIDANCE 12/17/2020 12:00:00 AM EDT eCW1 ([facility]) ECHO TTHRC R-T 2D W/WOM-MODE COMPL SPEC&COLR DOP <td>E CHOCARDIOGRAM 2D COMPLETE</td><td>Routine</td><td>12/13/2020 1:46 PM EDT</td><td> Encounter for monitoring cardiotoxic drug therapy</td><td> </td> 12/13/2020 01:46:02 PM EDT Encounter for monitoring cardiotoxic drug therapy [facility] Encounter for monitoring cardiotoxic danette g therapy FINE NEEDLE ASPIRATION W/O IMAGING GUIDANCE 12/03/2020 12:00:00 AM EDT eCW1 ([facility]) BLOOD COUNT COMPLETE AUTO&AUTO DIFRNTL WBC COUNT <td>C BC AND DIFFERENTIAL</td><td>STAT</td><td>11/28/2020 10:25 AM EDT</td><td> Malignant neoplasm of left breast in female, estrogen receptor positive, unspecified site of breast</td><td> </td> 11/28/2020 10:25:00 AM EDT Malignant neoplasm of left breast in fem sharonda, estrogen receptor positive, unspecified site of breast [facility] Malignant neoplasm of left breast in fem sharonda, estrogen receptor positive, unspecified site of breast COMPREHENSIVE METABOLIC PANEL <td>COMPREHENSIVE METABO LIC PANEL</td><td>STAT</td><td>11/28/2020 10:25 AM EDT</td><td> Malignant neoplasm of left breast in female, estrogen receptor positive, unspecified site of breast</td><td> </td> 11/28/2020 10:25:00 AM EDT Malignant neoplasm of left breast in fem sharonda, estrogen receptor positive, unspecified site of breast [facility] Malignant neoplasm of left breast in fem sharonda, estrogen receptor positive, unspecified site of breast Mastectomy 10/02/2020 12:00:00 AM EST A THENA ([facility]) Mastectomy 10/02/2020 12:00:00 AM EST A THENA ([facility]) CT ABDOEN & PELVIS W/CONTRAST MATERIAL <td>CT ABDOMEN PELVIS WITH CONTRAST [id number]</td><td>Routine</td><td>09/16/2020 5:27 PM EST</td><td> Malignant neoplasm of left breast in female, estrogen receptor positive, unspecified site of breast</td><td> </td> 09/16/2020 05:27:07 PM EST Malignant neoplasm of left breast in fem sharonda, estrogen receptor positive, unspecified site of breast [facility] Malignant neoplasm of left breast in fem sharonda, estrogen receptor positive, unspecified site of breast BLOOD COUNT COMPLETE AUTO&AUTO DIFRNTL WBC COUNT <td>C BC AND DIFFERENTIAL</td><td>STAT</td><td>09/04/2020 9:45 AM EST</td><td> Malignant neoplasm of left breast in female, estrogen receptor positive, unspecified site of breast</td><td> </td> 09/04/2020 09:45:00 AM EST Malignant neoplasm of left breast in fem sharonda, estrogen receptor positive, unspecified site of breast [facility] Malignant neoplasm of left breast in fem sharonda, estrogen receptor positive, unspecified site of breast COMPREHENSIVE METABOLIC PANEL <td>COMPREHENSIVE METABO LIC PANEL</td><td>STAT</td><td>09/04/2020 9:45 AM EST</td><td> Malignant neoplasm of left breast in female, estrogen receptor positive, unspecified site of breast</td><td> </td> 09/04/2020 09:45:00 AM EST Malignant neoplasm of left breast in fem sharonda, estrogen receptor positive, unspecified site of breast [facility] Malignant neoplasm of left breast in fem sharonda, estrogen receptor positive, unspecified site of breast BLOOD COUNT COMPLETE AUTO&AUTO DIFRNTL WBC COUNT <td>C BC AND DIFFERENTIAL</td><td>STAT</td><td>08/08/2020 9:35 AM EST</td><td> Malignant neoplasm of left breast in female, estrogen receptor positive, unspecified site of breast</td><td> </td> 08/08/2020 09:35:00 AM EST Malignant neoplasm of left breast in fem sharonda, estrogen receptor positive, unspecified site of breast [facility] Malignant neoplasm of left breast in fem sharonda, estrogen receptor positive, unspecified site of breast COMPREHENSIVE METABOLIC PANEL <td>COMPREHENSIVE METABO LIC PANEL</td><td>STAT</td><td>08/08/2020 9:35 AM EST</td><td> Malignant neoplasm of left breast in female, estrogen receptor positive, unspecified site of breast</td><td> </td> 08/08/2020 09:35:00 AM EST Malignant neoplasm of left breast in fem sharonda, estrogen receptor positive, unspecified site of breast [facility] Malignant neoplasm of left breast in fem sharonda, estrogen receptor positive, unspecified site of breast BLOOD COUNT COMPLETE AUTO&AUTO DIFRNTL WBC COUNT <td>C BC AND DIFFERENTIAL</td><td>STAT</td><td>07/18/2020 9:10 AM EST</td><td> Malignant neoplasm of left breast in female, estrogen receptor positive, unspecified site of breast</td><td> </td> 07/18/2020 09:10:00 AM EST Malignant neoplasm of left breast in fem sharonda, estrogen receptor positive, unspecified site of breast [facility] Malignant neoplasm of left breast in fem sharonda, estrogen receptor positive, unspecified site of breast COMPREHENSIVE METABOLIC PANEL <td>COMPREHENSIVE METABO LIC PANEL</td><td>STAT</td><td>07/18/2020 9:10 AM EST</td><td> Malignant neoplasm of left breast in female, estrogen receptor positive, unspecified site of breast</td><td> </td> 07/18/2020 09:10:00 AM EST Malignant neoplasm of left breast in fem sharonda, estrogen receptor positive, unspecified site of breast [facility] Malignant neoplasm of left breast in fem sharonda, estrogen receptor positive, unspecified site of breast BLOOD COUNT COMPLETE AUTO&AUTO DIFRNTL WBC COUNT <td>C BC AND DIFFERENTIAL</td><td>STAT</td><td>06/27/2020 8:45 AM EST</td><td> Malignant neoplasm of left breast in female, estrogen receptor positive, unspecified site of breast</td><td> </td> 06/27/2020 08:45:00 AM EST Malignant neoplasm of left breast in fem sharonda, estrogen receptor positive, unspecified site of breast [facility] Malignant neoplasm of left breast in fem sharonda, estrogen receptor positive, unspecified site of breast COMPREHENSIVE METABOLIC PANEL <td>COMPREHENSIVE METABO LIC PANEL</td><td>STAT</td><td>06/27/2020 8:45 AM EST</td><td> Malignant neoplasm of left breast in female, estrogen receptor positive, unspecified site of breast</td><td> </td> 06/27/2020 08:45:00 AM EST Malignant neoplasm of left breast in fem sharonda, estrogen receptor positive, unspecified site of breast [facility] Malignant neoplasm of left breast in fem sharonda, estrogen receptor positive, unspecified site of breast BLOOD COUNT COMPLETE AUTO&AUTO DIFRNTL WBC COUNT <td>C BC AND DIFFERENTIAL</td><td>STAT</td><td>06/06/2020 8:50 AM EDT</td><td> Malignant neoplasm of left breast in female, estrogen receptor positive, unspecified site of breast</td><td> </td> 06/06/2020 08:50:00 AM EDT Malignant neoplasm of left breast in fem sharonda, estrogen receptor positive, unspecified site of breast [facility] Malignant neoplasm of left breast in fem sharonda, estrogen receptor positive, unspecified site of breast COMPREHENSIVE METABOLIC PANEL <td>COMPREHENSIVE METABO LIC PANEL</td><td>STAT</td><td>06/06/2020 8:50 AM EDT</td><td> Malignant neoplasm of left breast in female, estrogen receptor positive, unspecified site of breast</td><td> </td> 06/06/2020 08:50:00 AM EDT Malignant neoplasm of left breast in fem sharonda, estrogen receptor positive, unspecified site of breast [facility] Malignant neoplasm of left breast in fem sharonda, estrogen receptor positive, unspecified site of breast ECHO TTHRC R-T 2D W/WOM-MODE COMPL SPEC&COLR DOP <td>E CHOCARDIOGRAM 2D COMPLETE</td><td>Routine</td><td>05/29/2020 11:51 AM EDT</td><td> Malignant neoplasm of left breast in female, estrogen receptor positive, unspecified site of breast</td><td> </td> 05/29/2020 11:51:09 AM EDT Malignant neoplasm of left breast in fem sharonda, estrogen receptor positive, unspecified site of breast [facility] Malignant neoplasm of left breast in fem sharonda, estrogen receptor positive, unspecified site of breast BLOOD COUNT COMPLETE AUTO&AUTO DIFRNTL WBC COUNT <td>C BC AND DIFFERENTIAL</td><td>Routine</td><td>05/15/2020 8:30 AM EDT</td><td> Malignant neoplasm of left breast in female, estrogen receptor positive, unspecified site of breast</td><td> </td> 05/15/2020 08:30:00 AM EDT Malignant neoplasm of left breast in fem sharonda, estrogen receptor positive, unspecified site of breast [facility] Malignant neoplasm of left breast in fem sharonda, estrogen receptor positive, unspecified site of breast COMPREHENSIVE METABOLIC PANEL <td>COMPREHENSIVE METABO LIC PANEL</td><td>STAT</td><td>05/15/2020 8:30 AM EDT</td><td> Malignant neoplasm of left breast in female, estrogen receptor positive, unspecified site of breast</td><td> </td> 05/15/2020 08:30:00 AM EDT Malignant neoplasm of left breast in fem sharonda, estrogen receptor positive, unspecified site of breast [facility] Malignant neoplasm of left breast in fem sharonda, estrogen receptor positive, unspecified site of breast Spirometry 04/18/2020 12:00:00 AM EDT Enedelia OZUNA ([facility], ) Results ID Date Data Source [id number] 05/01/2021 03:02:36 PM EDT [facility] Name Value Range Interpretation Code Description Data Joyce rce(s) Supporting Document(s) Leukocytes [#/volume] in Blood by Automated count 7.1 10*3/uL 4-10 [facility] Erythrocytes [#/volume] in Blood by Automated count 4.27 10*6/uL 4.1- 5.3 [facility] Hemoglobin [Mass/volume] in Blood 13.9 g/dL 11.5-15.5 [facility] Hematocrit [Volume Fraction] of Blood by Automated count 40.7 % 3 6-45 [facility] Erythrocyte mean corpuscular volume [Entitic volume] by Auto mated count 95.4 fL 80-96 [facility] Erythrocyte mean corpuscular hemoglobin [Entitic mass] by Automated count 32.7 pg 27-33 [facility] Erythrocyte mean corpuscular hemoglobin concentration [Mass/volume] by Automated count 34.3 g/dL 32.0-36.0 [facility] E[facility] distribution width [Ratio] by Automated count 14.2 % 11.5-14.5 [facility] Platelets [#/volume] in Blood by Automated count 249 10*3/uL 150-400 [facility] Differential cell count method - Blood [facility] Neutrophils/100 leukocytes in Blood by Automated count 67 % [facility] Lymphocytes/100 leukocytes in Blood by Automated count 22 % [facility] Monocytes/100 leukocytes in Blood by Automated count 7 % [facility] Eosinophils/100 leukocytes in Blood by Automated count 3 % [facility] Basophils/100 leukocytes in Blood by Automated count 1 % [facility] Neutrophils [#/volume] in Blood by Automated count 4.77 10*3/uL 1.8-7 .0 [facility] Lymphocytes [#/volume] in Blood by Automated count 1.54 10*3/uL 1.2-4 .0 [facility] Monocytes [#/volume] in Blood by Automated count 0.49 10*3/uL 0-0.8 [facility] Eosinophils [#/volume] in Blood by Automated count 0.17 10*3/uL 0-0.5 [facility] Basophils [#/volume] in Blood by Automated count 0.10 10*3/uL 0-0.2 [facility] Nucleated erythrocytes/100 leukocytes [Ratio] in Blood by Automated count 0 /100{WBCs} 0-0 [facility] ID Date Data Source [id number] 05/01/2021 04:25:56 PM EDT [facility] Name Value Range Interpretation Code Description Data Joyce rce(s) Supporting Document(s) Albumin [Mass/volume] in Serum or Plasma by Bromocresol green (BCG) dye binding method 3.9 g/dL 3.5-5.2 [facility] Bilirubin.total [Mass/volume] in Serum or Plasma 0.2 mg/dL <1.2 [facility] Calcium [Mass/volume] in Serum or Plasma 9.0 mg/dL 8.6-10.0 [facility] Chloride [Moles/volume] in Serum or Plasma 109 mmol/L 98-107 H [facility] Creatinine [Mass/volume] in Serum or Plasma 0.59 mg/dL 0.50-0.90 [facility] Glucose [Mass/volume] in Serum or Plasma 99 mg/dL 70-140 [facility] Alkaline phosphatase [Enzymatic activity/volume] in Serum or Plasma 93 U/L 35-104 [facility] Potassium [Moles/volume] in Serum or Plasma 3.3 mmol/L 3.4-5.1 L [facility] Protein [Mass/volume] in Serum or Plasma 6.7 g/dL 6.4-8.3 [facility] Sodium [Moles/volume] in Serum or Plasma 143 mmol/L 136-145 [facility] Aspartate aminotransferase [Enzymatic activity/volume] in Serum or Plasma 19 U/L <32 [facility] Urea nitrogen [Mass/volume] in Serum or Plasma 8 mg/dL 6-20 [facility] Osmolality of Serum or Plasma by calculation 294 mosm/kg 275-300 [facility] Creatinine/Urea nitrogen [Mass Ratio] in Serum or Plasma 14 [facility] Bicarbonate [Moles/volume] in Serum 23 mmol/L 22-29 [facility] Alanine aminotransferase [Enzymatic activity/volume] in Seru m or Plasma 18 U/L <33 [facility] Anion gap 3 in Serum or Plasma 11 mmol/L 8-15 [facility] Glomerular filtration rate/1.73 sq M pre dicted among non-blacks [Volume Rate/Area] in Serum or Plasma by Creatinine-based formula (MDRD) >6 0 [facility] Glomerular filtration rate/1.73 sq M pre dicted among blacks [Volume Rate/Area] in Serum or Plasma by Creatinine-based formula (MDRD) >60 [facility] ID Date Data Source [id number] 04/29/2021 06:01:21 PM EDT [facility] Name Value Range Interpretation Code Description Data Joyce rce(s) Supporting Document(s) Progress Note [facility] ZPWVIn9tRiULQlOd52/ALWnrFXVyp5VeHAqaTUk5TYdtYUNdS2ViJEX6tL3eQPX5LDeVLwIzJmNiUEXc lbm [file] AgICAgICAgICAgICAgICAgICAgICAgICAgICAgICAg ICAgICAgICAgICAgICAgICAgICAgICAgICAgICAgICAgDQogICAgICAgICAgICAgICAgICAgICAgICAg ICAgICAgICAgICAgICAgICAgICAgICAgICAgICAgICAgICAgICAgICAgICAgICAgICAgICAgICAgICAg ICAgICAgICAgICAgICAgDQogICAgICAgICAgICAgIC AgICAgICAgICAgICAgICAgICAgICAgICAgICAgICAgICAgICAgICAgICAgICAgICAgICAgICAgICAgIC AgICAgICAgICAgICAgICAgICAgICAgICAgDQogICAgICAgICAgICAgICAgICAgICAgICAgICAgICAgIC AgICAgICAgICAgICAgICAgICAgICAgICAgICAgICAg ICAgICAgICAgICAgICAgICAgICAgICAgICAgICAgICAgICAgDQogICAgICAgICAgICAgICAgICAgICAg ICAgICAgICAgICAgICAgICAgICAgICAgICAgICAgICAgICAgICAgICAgICAgICAgICAgICAgICAgICAg ICAgICAgICAgICAgICAgICAgDQogICAgICAgICAgIC AgICAgICAgICAgICAgICAgICAgICAgICAgICAgICAgICAgICAgICAgICAgICAgICAgICAgICAgICAgIC AgICAgICAgICAgICAgICAgICAgICAgICAgICAgDQogICAgICAgICAgICAgICAgICAgICAgICAgICAgIC AgICAgICAgICAgICAgICAgICAgICAgICAgICAgICAg ICAgICAgICAgICAgICAgICAgICAgICAgICAgICAgICAgICAgICAgDQogICAgICAgICAgICAgICAgICAg ICAgICAgICAgICAgICAgICAgICAgICAgICAgICAgICAgICAgICAgICAgICAgICAgICAgICAgICAgICAg ICAgICAgICAgICAgICAgICAgICAgDQogICAgICAgIC AgICAgICAgICAgICAgICAgICAgICAgICAgICAgICAgICAgICAgICAgICAgICAgICAgICAgICAgICAgIC AgICAgICAgICAgICAgICAgICAgICAgICAgICAgICAgDQogICAgICAgICAgICAgICAgICAgICAgICAgIC AgICAgICAgICAgICAgICAgICAgICAgICAgICAgICAg YTPeKXFtTHYiDIKwDWVjRKRzEBIcVTLmXETzYXEnWXHqMKHyYPWqSZHtVHt1K9izYCXfWPTwNN2wAIb4 Jz8+XUdXVeUyTCA9ygGqnX4OEL2ls3ThPBduSBTnu6UtBUe8CB6SJWQiVNhtDB1FVIbdlx0OYXPgBWJi lTYUf1vfSyHyFUT8GBBsSyuoQC0KRBQxE6gazcXnWV LgQHPJBLvrAXJYOSddAAGLPONwEBIdFrFvJpTuLWJmTMCmMQZYVOP9DTHwLlAjEITlNZPrVnEbFULHQB 6EMwDdU3AbjN37YTdKYv5+YTbybwRsEmsUGgZmCAUaj1MwCRe0ID0UDAKjKckkl3WxGOXpRMJKMWfoKY 9KGHM1ZVJ2VGNlRv9MDLZhL971muXpJT8HCz9MHhNb KS9exc7CMWZdTEPkJbqQKjc5EWbyLN8HnPUsVPbZny3xpgDgbcIUw3MlqbFywYEPWA2ltnQcY6croa2l HXFEQMRcjCC1EnY5OzIgDwQbQWP4BZInZB8qJNltLV9ZOST5NHfyJBBiTNDqD2fKEkRvWVZfWQQhoGwf KO5KLsBcA5OfdwMzvJZ2EvEnZNMUEv8+DQplbmRvYm sPZlL3RQRgf1RvYUf5VF0LXJZyYBoyXW8UGZExaY8nSXdvEA2ZKiO8KBZiAXBMHsFnT65xpNHaBNi8H7 VtYmVkZGVkRmlsZXMgPDwvTmFtZXMgWyBdDQogID4+ID4+PWgwDG4VERggsyRvAOYdJd3CVHNhFQCnHF 0sLPFpSQMqZ6W6aCvlZQAMNwAaA5afoireXX0pYQUv G192lPndbwKdMAPoFXAwQa8THGEfXHB7FQXadQVnFTIwWJYBDUnvHH0LbCWrIUG7eT5gSFmrULKdOEVi E9oSAuTnwTsaEU30oHwgenVcaJRkQBn+Sg9JJW0me4MrOUl5fwMtSNraYNM4YAbcWGLtJSNcRIReQPU8 PFN4HKFNJlAmQEGeKJQbUHufOELsFBMtdz4HVAFqYG N7WVt7HSUtTGHrCLJyBVifZNHvIDppGVNgXTKjJJWnSA1LRxGoVJNlTIQtIDneHZFnZNIyke1EQLTrAK LgPVqaXDFnWAHdYOKjGXbmCFPxNAU1QUSlPZBhJLWoZG8WPlUmWHBoQHN6CIuiPRPwZNOkum1NMEAdRY WhAAytAuBaJBFpZCIrBHxaUALxNMD4CTc9VPFaJFIe XX0HGxMqAZRcIQNcTNDzUZGzLLIcbl5KDRZfQEUvSfHqIBEoJNQkNRPqHPilCSYfWIC8BOCyLKNfPCLy HH0QTeUbEILpFDq6WVzfJSPlBLIcmv6SATGsYGXmBHu4DBYfLQHzZKEeAFjpGYBbKCWsSgBgNWSyNGBx BE2IGhLwJPRsIyZ9UCErBGOvDTOskx3FEVArQKHmQI u5JMOdIWItVFFrRHgeLYJwBXO1ZBt5FITzREDsPZ4WDlMuSVEwZjO3CSJsJWUhUROnpk2CAAIuRJEmNL n6DrOaAJJzSTPqMGabFKKoCOR0BBz3QGXcWEZwMJ1URtYcADCnRuT8ALYoCQHoXZDqxh1NMVZoDATkXN J5BTJjGTEoWMEhESbgHVToTTG3VNF0UACoCPAzPZ0J PpVuYVYgMgHyDCFwTEBrKENogd7HBFTfHRYbOhh8EJNlGCTuDTCbFCvuIGLoGHR7IdCmZOUiHJSqFD3L EsAuNPNsVsdtZPogAAOiTGEowk6NEURkZWL7NMdzNVHlJOYlDWWuBYenAVZhIIB7AWZ5NYNvMXCpIK6Z QjEoQQSsJWruSFIqOYQeCXQihr0XJEEaSNN5LIKzYw KjFOYbSPImNMczBUEgKRV6BcI5JIInYYYiAK9XYfAoFUQwODN5DVWeIRNqHQZqns5JNJNfGEH0MNi2PK LcQHKgOJDeNBipRPAqWTSuHQO5ZHGbLAEoNX3MSaBgVSQwJcu5IfHcMYKiHFCiqz6RJQEgTCJ4OSIwRW RjMCBlTABuTCwnWOAeRKc1MzL4HXHhVHBaUB5QOwNf JNOiCHH7LltkJWPbMLFpsp5QXBTxXUZ3TFclYIUvALIgPXSeWXwdMWJiZIwuYNQsMSHlUWQyWM8JVbQg UBEwWZT0GNOzKEGjAETvvi3DIHKgTMA5SseiCXKyUPWsSHZrSLtzUORiZNurBImtGPAeZZBwJK0RSsNk PYhaWOUGJto2RKyoW4d7WGE2Vn1JE1Ico0NcRSZaCL BYMJcoQF3olqKmIPHgBf2PB7lTVxd2MiN5TQCyDFV7YCRjQIUgQUciUTUzUXOuRNorYMVtZM3wMTLaFG mlAWP3UXrmNUO7PfJ8RDNiBWUjGpXcQME4KBYeXpBsWT7NPs2LBxD1EPZ2qVOdLa7SLNZgADsCCjMtPR 9GDQo= ID Date Data Source [id number] 04/23/2021 01:27:18 PM EDT [facility] MAMMO DIGITAL DIAGNOSTIC RIGHT [id number] L RESULTInterpreted by:HÉCTOR Damon DIGITAL MAMMOGRAM WITH COMPUTER-AIDED DETECTIONHISTORY: Screening exam. The patient has a history of left mastectomy.COMPARISON: Outside mammograms dating back to 05/19/2016Last Reported Clinical Breast Exam: TodayTECHNIQUE: Craniocaudal and mediolateral oblique digital mammograms were obtained with tomosynthesis. Computer-aided detection was utilized.FINDINGS:The breast is almost entirely fatty (category A).No abnormal mass, suspicious calcifications, or architectural distortion is identified.IMPRESSION: 1. Normal mammogram. 2. No evidence for malignancy. 3. Recommend routine followup examination in one year. BI-RADS 1 - NEGATIVE This document has been electronically signed by Stevie Wolf MD on 04/23/2021 1:25 PM Name Value Range Interpretation Code Description Data Joyce rce(s) Supporting Document(s) ID Date Data Source [id number] 04/21/2021 09:50:40 AM EDT [facility] Name Value Range Interpretation Code Description Data Joyce rce(s) Supporting Document(s) Progress Note [facility] PHKAXt2oAkLYJcYo65/GVAyaFVQtr8YbMMrvGZb6HTwmNYJvB4ZhTNB6tE6hETK2EXdTJrIbJcCxXEKj lbm [file] DQo+Uc9Ru0SoeuD0jnRtTZltEth4Ln2JTFDEY3BXRw== ID Date Data Source [id number] 04/14/2021 07:51:32 AM EDT [facility] Name Value Range Interpretation Code Description Data Joyce rce(s) Supporting Document(s) Progress Note [facility] YHPGWc9qSwXQWhTg05/GSInuRNTju8GvDOlsLGh8YQmfKAEkL0CiLKD2dP2zUJU8LWrLVeEeIaVaFWE9 lbm [file] ItAsORA2FVM+RT5oQBn+Yl7Yc2UvrlU1sxCbWGjnRQD7Xj9ZZWRSH2MFVm== ID Date Data Source [id number] 04/07/2021 10:58:29 AM EDT [facility] Name Value Range Interpretation Code Description Data Joyce rce(s) Supporting Document(s) Progress Note [facility] ENQJHt2uOeZTWlKk25/IDNtlSKKas9XrUSmqCVi8RSefIQWqT8RkITF1nZ3lVWD4NXmTGfXyLiYaWBTz lbm [file] vX0qnt+Nt62OeMUtxvThOIehTbF3LwDhR8TbON3Axrca8KV6fgqaZe3+JpN5uTPTuF+vp product management/nyeprOZxPO [file] 9vslIMEG8b5QzC+BL5iKFc6RD3utRH+fxtzXLrXhMCsdSGA3fHR+z+gYQM0+senior care+LVr8UW3oe2KTf0h5 [file] CiAgICAgICAgICAgICAgICAgICAgICAgICAgICAgICAgICAgICAgICAgICAgICAgICAgICAgICAgICAg ICAgICAgICAgICAgICAgICAgICAgICAgICAgICAgICAgICAgICAgICANCiAgICAgICAgICAgICAgICAg ICAgICAgICAgICAgICAgICAgICAgICAgICAgICAgIC AgICAgICAgICAgICAgICAgICAgICAgICAgICAgICAgICAgICAgICAgICAgICAgICAgICANCiAgICAgIC AgICAgICAgICAgICAgICAgICAgICAgICAgICAgICAgICAgICAgICAgICAgICAgICAgICAgICAgICAgIC AgICAgICAgICAgICAgICAgICAgICAgICAgICAgICAg ICANCiAgICAgICAgICAgICAgICAgICAgICAgICAgICAgICAgICAgICAgICAgICAgICAgICAgICAgICAg ICAgICAgICAgICAgICAgICAgICAgICAgICAgICAgICAgICAgICAgICAgICANCiAgICAgICAgICAgICAg ICAgICAgICAgICAgICAgICAgICAgICAgICAgICAgIC AgICAgICAgICAgICAgICAgICAgICAgICAgICAgICAgICAgICAgICAgICAgICAgICAgICAgICANCiAgIC AgICAgICAgICAgICAgICAgICAgICAgICAgICAgICAgICAgICAgICAgICAgICAgICAgICAgICAgICAgIC AgICAgICAgICAgICAgICAgICAgICAgICAgICAgICAg ICAgICANCiAgICAgICAgICAgICAgICAgICAgICAgICAgICAgICAgICAgICAgICAgICAgICAgICAgICAg ICAgICAgICAgICAgICAgICAgICAgICAgICAgICAgICAgICAgICAgICAgICAgICANCiAgICAgICAgICAg ICAgICAgICAgICAgICAgICAgICAgICAgICAgICAgIC AgICAgICAgICAgICAgICAgICAgICAgICAgICAgICAgICAgICAgICAgICAgICAgICAgICAgICAgICANCi AgICAgICAgICAgICAgICAgICAgICAgICAgICAgICAgICAgICAgICAgICAgICAgICAgICAgICAgICAgIC AgICAgICAgICAgICAgICAgICAgICAgICAgICAgICAg ICAgICAgICANCiAgICAgICAgICAgICAgICAgICAgICAgICAgICAgICAgICAgICAgICAgICAgICAgICAg ICAgICAgICAgICAgICAgICAgICAgICAgICAgICAgICAgICAgICAgICAgICAgICAgICANCjw/jWIwK5rx mMZibcQ6O1fxMt6MDb2AUE7lo0DkPTSpMJsjddLoGh bDMwPlVNJmPgrKQfq2IKccCT6LmWUuO2TiA8IaLKrcZL0IPYGvZDGvvNTsPAWjBDYfAdY6IEOoMAynYQ 3PaIWyWWxbEQAmDRDkNZYnJRVzFXCrFAJFCSUjTCDxRrQpQYkbKY6Kn4GayZJ7WYb+Zn2DTS0mg6QkMY atXBAgUH2rsj7ZXCsZRvZgE2UykiK6EMJtVOGdZw0B USYfWJPknBXuNRPvDMTURhQfJ4PpgB59YHYMKa7+MTyxnoPyBbmIZgUhHCHuo3PgPGa4KQ1RNNAkDGl6 dGYhUPPnZ0Edm7OuSe17LVBjEftoPdRhXQZmUGIXLEPkGOLTAEPmxEB5FhF5XbRpGaAoWAU2DtLtCK6z NZgwWA4UGLK5BFysGOLcPXVnM5bRDyQlQDIpMVOnvX jaRG4KGyCfW5DtlrJvjDMsHHCbIKWNYs3+RWmeobNjHwlVGbPwPUYeUhxDEkb1SQuiLP8GdUQcRD4Wmy 9ayENoL7ZxgFvnBGUdNNriioQaBk9aSTNiIRnfGKTzAX2mT2llI0xlV1SjDJAFSqFvQ6KtK7KmKyIsOH M4ILClRsAlCFBbEYPZFcIwP8TaWGkkWeDvXBWGUZ0H JgtqVUNoNjcUSRlLG5UKRKfRBERKWq2ST40RD48HRYJKNK4IZ2mQWkckGK8+NI0MJt4GKgXxLV6ygm1W UtZuGGPpVtiASyv3XXubHO2AmXRhE8EefKIdk3lJSmAhV4YJWNB7WGDzXd6OWLFrIyNfDWEfFYgsOW5n SZCpUTGBdCvxluQ5AF8MBP1togDqHB7GTpFwHb8rHp 4RDwFrN9LjI0QtSYPyGYRULKaaTB5GSPobKM5pOH9Vi5ZShLIejE1xbz7SPFSjQEOuKqymga4WTydwB8 W8vFirQVNoYvmmMXKTIBlqKW3UZOHyYKM7SIDjMKAzGDDALaIrP15oMM1QE4Djq30wDzG5KNRwAwYzUX gjRL07aDoqcwIdzAWnsXnfGR9UPd2+DQplbmRvYmoN AzguHJBHIhKpWlNEHmYhJLJbJCLwVNOqYoA4MrSqXn4IJPEaKVQqUSVmBmNiBGSpEBEmQDtsWHZrQPN6 VLWvCANpSZMyQV3HVuEkIDJxRfu7CBGeYSLvATWjyi8FYIZyOFDdQCR2PbGiAKJuCYSuCByqTBCvPWXw NEQvQLAgXVAbPO9XIiZrRGIhBvx2TZCbQFCpUCMbye 9SAMWqJCPzBtu5RALqJKLvNJTmCVgpHPMxLQO7XDD0RCZdVUVgBP0TOeYtHKPzLUV0IDVkZGHpQLTdpg 5LUHHmMCKbOAX8EEWaIKDvKQMrJKtqFYNeWRD9XbR3YKVvBIGhYC8LKtDmFEVqKRBiElHdENEhKOPosz 7NTMHvSYHoDSOmRIUqUBNpTKGwNQaiYTPcAJPbQiv7 QMOpLNIwEY7BWcDhMUCmEFF4PBTyGUNvPQQsng3COISfTFSxHxe4GKMkDULeAPUqCIbrSJLqTUZgIlF0 DFOlOXIxJF3XDzYqQZKxSYL1ScDzOPLkNAUtau6MJPByIMIxGFSsHWUbQKQcQZFvLKjyJCTdRTK2SDF4 NIPvXGCdHR8QQsWvSUGeOeA3SyOrFUCpNHUvgi1JWD OpDBGsKtW7ZpVpKWZtTEQePBxiNBKyRWN9JtGeSUHtZWTpEU1WPcRyCIPfIgG0IynyDESkMBTjrj9QVQ BzOKNkGiTlPgDnCWNbSVNxTSoyGLPbUBP7UnVbMSKgIPUsAG5WGuRvPEWoNla4HTxgGXQeMEIweb8RHJ DdHYAoRPExRSAiEUFiHOPcAOwgNAFvUID3QsQtXPWf JUAdHQ0KPbMqNMCbAbl1EnUvNWCgVOUpaf6VHFSeDSObBGV6DmLeSDEiQMOeCMy5wwYxaEQjOCm2BD2T C4QbuaVmSnGAGv4Tt376CWQkGOKaHs4JE9pkNo8aNVOuOYXHKt4IBRn4JBcrLNCyOmH6HDQcRuA3FAB3 SeusOWwzGED8NAZpTUN+MIzzVJRoDEKgIPudLEO0Ft foDxCyU6OaZHNjVRNaEQXuJe3yXDONKd3+SCjukHXfkLlbNVYDUnRcYrEbLLpmCSYBGz0X ID Date Data Source [id number] 04/04/2021 04:07:54 PM EDT [facility] Name Value Range Interpretation Code Description Data Joyce rce(s) Supporting Document(s) Progress Note [facility] IUIZUp0eEiFVOyLo46/ZLBavCQEva9VgRGzxWRc7SXxfHSKfR1OuHNZ0qG1aKTR6QSlNMgLmRiNaUVV0 lbm [file] [employer] [file] ZbOCuqPpykAsTkSeB9HAn5L4ImLgKfJm6nUPSTBl7+RZhzuORmbVdaIBOCUnE3TrcyGRkmJTHQQf8C ID Date Data Source [id number] 04/02/2021 02:28:43 PM EDT [facility] Name Value Range Interpretation Code Description Data Joyce rce(s) Supporting Document(s) Progress Note [facility] HWFARb0vVbOFWqGy72/OQBraFFAfm2HvXFiuWZq8OQnjOBQgU6JzGJA8aX5sFBV1KKyCCkRzBmDzVMJ2 lbm [file] Geri/N/ACil5bk0m1ifer2irnA4JJa9ALhO5rr0uNFcuSQbZFXMU0ajjLo4W6Xn3lZLu00F/uqGniBoH2 C1rP4+Pj1iPoB8mE+bJM2wNCSU38mizGO5iMYg6gjI TUzTdYhvhviJhxovLu5mA/qH3W3lR8hQnQtDL0pMVhctB+HIiBXiEojNbOmgheZhmJYcdhRzHt3fNnsQ R8tYccywwXUXknlSTloTMJBVlZIeTslTHIIUHeR41yRu0fZ+jMc16SF1rzCf3m8xc3FZsJ3fm3v5IJ0U 3GPlwNecNpcQZDFROckjVy2vEeUbRv3dN0ohfgumT2 xZFY2dFG3+H9JLfyPvqcGlcnqipIxqK9EndraB9fX1ouk8ev57GCWYGpGJxyqtMDUkOd2GRmTCw66OAO SkkD7emXs9Dqn70UhaCLU/Z5kyOfw9HyWTnqgmCuSZu5LCK8Kbc+K5ZlfwAzu6KG6EjIwQWcuz0gdAmX o6mS4N28q6MeOg5d6v4je08Pub3NIOWLSLLMzOx0UH UkcR6LJcSSk3ysMS6S3OBrupsaIUqNxYkoToJ+2T3TFY6XbFOpj9XKmwwEdGuS6FgOq2+sn9SzRfS2g9 PkFQjce7slrX0K9gQeRn/5Xcnow1ytk8v+lSbS2Z4789N3/Heatset Winder Operator+JpO96B0ojWzqGU2urtnJCYX9AjAjO [file] ICAgICAgICAgICAgICAgICAgICAgICAgICAgICAgICAgICAgICAgICAgICAgICAgICAgICAgICAgICAg ICAgICAgICAgICAgICAgDQogICAgICAgICAgICAgICAgICAgICAgICAgICAgICAgICAgICAgICAgICAg ICAgICAgICAgICAgICAgICAgICAgICAgICAgICAgIC AgICAgICAgICAgICAgICAgICAgICAgICAgDQogICAgICAgICAgICAgICAgICAgICAgICAgICAgICAgIC AgICAgICAgICAgICAgICAgICAgICAgICAgICAgICAgICAgICAgICAgICAgICAgICAgICAgICAgICAgIC AgICAgICAgDQogICAgICAgICAgICAgICAgICAgICAg ICAgICAgICAgICAgICAgICAgICAgICAgICAgICAgICAgICAgICAgICAgICAgICAgICAgICAgICAgICAg ICAgICAgICAgICAgICAgICAgDQogICAgICAgICAgICAgICAgICAgICAgICAgICAgICAgICAgICAgICAg ICAgICAgICAgICAgICAgICAgICAgICAgICAgICAgIC AgICAgICAgICAgICAgICAgICAgICAgICAgICAgDQogICAgICAgICAgICAgICAgICAgICAgICAgICAgIC AgICAgICAgICAgICAgICAgICAgICAgICAgICAgICAgICAgICAgICAgICAgICAgICAgICAgICAgICAgIC AgICAgICAgICAgDQogICAgICAgICAgICAgICAgICAg ICAgICAgICAgICAgICAgICAgICAgICAgICAgICAgICAgICAgICAgICAgICAgICAgICAgICAgICAgICAg ICAgICAgICAgICAgICAgICAgICAgDQogICAgICAgICAgICAgICAgICAgICAgICAgICAgICAgICAgICAg ICAgICAgICAgICAgICAgICAgICAgICAgICAgICAgIC AgICAgICAgICAgICAgICAgICAgICAgICAgICAgICAgDQogICAgICAgICAgICAgICAgICAgICAgICAgIC AgICAgICAgICAgICAgICAgICAgICAgICAgICAgICAgICAgICAgICAgICAgICAgICAgICAgICAgICAgIC AgICAgICAgICAgICAgDQogICAgICAgICAgICAgICAg ICAgICAgICAgICAgICAgICAgICAgICAgICAgICAgICAgICAgICAgICAgICAgICAgICAgICAgICAgICAg VKLeUKLhEGXaTLZhBCYuQFYsEJSuOJKpNJv4W0gbOIKcXZMyBG8oOSt9Gg0+MOzUKvSaNLH2ceLqnM8O LH9ib3WvLDfmYJAvc1CbIIt9YQ2HPWJfEHmzEG8AXU kusq9PYUAuBAXeeYBFx3eeQqOcMIS1FWUcDeubOT9WPBVkU7ignqIfHRZzBVKQHNyhXGEGPTPkDSBuGn BpNiJvYXIaRJ9MVQOkA295ceGuRS9JGb4GSwKsPF3bgz7FXwqePTZgPumYVog2DClfES6KvTQyiUVyTW KyNWZIGtEnA5pkk0XjNnQlVFSDZKhjDP0Bl8MvqVWo DQo+Ik7VLX3hw8FzEDqxZQPpZS1ssm4WNPiASiOhM9IhhEbjTTTcy5xlTUQoGJ4gsIOkSXO3DBMptaTs M4agmDvytlyaRFCpPDEaJS1gXK6pGKTePUQwZpEcGQWUZX2PRBSoXFSgcYEcKYGlIIGGYS8ETWfiYMU8 LOSpeaWfiINoKIhgCF0UBZRtdbTwXrhgVSPXQHi+Pg 8IRG4bx2RfVJv2BVTwi4PuIJn2DV4QLFXlLWgsDEOkDR2ga1QtN0C2NoL7wQPqX3fhvhwmY6ZifkQcjf GlSZXqPQYjAF6YZL4BXQ9DZHZdQBvuJG1DTLV0FDz0XtU8KwzlHMJoGVG7X18sPQryDP6ZVOw2L8VlU5 NDBZSjRCXDJXPldEW4BBGWXh1GR7GAKigMSFESLv3S EiIkH5VOA5jTL61EOP3MGEK+PiANCj4+DTgecsQlFvhJUgUvZGJpg4YhTNq8FR9VIOQmEKngEK9CRXGz lZ2aFElnZS0NOkDpTnXdGMMDGqGyI59ouWZnTPo9S4JaEgCcJHCwSzjlPCDcEOusQkBkURYsYiHtWNja ID4+ID4+VPzjDX1RPOjqyqYaCOMpYa8COHJmNOWlDX 1dKUTaCPWdR6P7cRlcZZBAJmWeG5mqmftaZT1oUPEbG732bPexlpSlBSQ7BTAuWi0KKUXvXBS7VRHcbI DwXemyASNOWByrFP7UjXWhOKJ9nA8xNZgxTBUxCKNvO6rHQlZchRvkDY47yGrwctWbpYIuMLo+Pg0KZW 8xk2BbPFd6ifMkMGhaMXVlDPruFZSoHWTrANCvXKN8 UMT4YKAILdSoBWYtCLTyRXcgWKAaWLIkxr2FVJGnSKOdRly7JJLiWDSrZJVhVKeiSAQfSXB7ANC6FLKz ZHTtZH5MYtJaOTGjBMRkTHqqFLGbGZTewb4FUKPtSMKlEbJhEFWpLPEtTYOuBWauUUTzTZR3QHN1NSCo VBVqEZ1ZGbUmQZDaQRY8AWYxRLLrGZLfbw6WDYJyTP ZgFwW6MaJpGSUbOUFfWCxsDLHfHVP1GUH3IPUqZCHvPW1IJwSsKNNgKTo1QMBfGRBoOQGahj1TAJEqDE ThRJb7XIPuXYVfMHGyYLqgVIUoDGJvNPr2JGQuTYBkRA3OKuSpIGLzHSP4SERfNQNnVAQvyc5UHWKsLE KnLnF4DyCvNNEeXNBaCNwpCEYmKKBlASSiNGXxJONe SY5UUdFqUJRuOIZ8YUKzWJTcPCOpyl3YWJSxIZFdPlasTbZnAMDwVLRyCPlyVKTmQPFgXZO4RXRpJTLv QX5ZZrHkBZRkADJbXVVtWUGlNFNqzp9JXTUtWCIyDDRhVkXvZNKfFOUvCBckIUYkYAI9CIG2AANmFEWe MA5SAyWbYAVnLgJxOZDpLNPvHLRkai0LEXNzQOCyZq JeGfZcOWXyNQQmJIgkDSUeLVB6WRPoEEWfANHaVC1JNaYzYCHhVfucDFFsFALyKZKset9HBOFaAZEtHz T9QNHxRVNjMBBsEWjqKXYhGND9JcFaMWBpYUUeIQ3OCuHaRRTqHkscVxrpEHXtSWFsch2XJJUzHREfOT GeCzRzFMXhZVIsAAnbNQZaXDF7DcX8VPOrZLMqXK0U QtSaGKTvReUqZmYcYEMfDVZwsq0ZiEKvmHypoi4ISLrAHn4NkAsiENEeJTlkRs7afLEpQVWgXQASXp1K nmNqJZOhCDWTRQfaPCWgKVF6YDV8DVrkFzDpMeR5ZCBdBwYbIKF4JGHwMGBqORa3McB2VpHoCYO2YMT6 UMZ2TtZ5YZP7ACRoSiuwHQNfDrJ9MSN+PD2jAPe+Lz8Rp9SrhwC7asNyXLrdYQW6NF3WBFLDF1IDPg== ID Date Data Source [id number] 04/02/2021 11:31:31 AM EDT [facility] Name Value Range Interpretation Code Description Data Joyce rce(s) Supporting Document(s) Leukocytes [#/volume] in Blood by Automated count 6.0 10*3/uL 4-10 [facility] Erythrocytes [#/volume] in Blood by Automated count 4.88 10*6/uL 4.1- 5.3 [facility] Hemoglobin [Mass/volume] in Blood 15.8 g/dL 11.5-15.5 H [facility] Hematocrit [Volume Fraction] of Blood by Automated count 46.7 % 3 6-45 H [facility] Erythrocyte mean corpuscular volume [Entitic volume] by Auto mated count 95.9 fL 80-96 [facility] Erythrocyte mean corpuscular hemoglobin [Entitic mass] by Automated count 32.4 pg 27-33 [facility] Erythrocyte mean corpuscular hemoglobin concentration [Mass/volume] by Automated count 33.8 g/dL 32[facility]0-[facility] distribution width [Ratio] by Automated count 14.8 % 11.5-14.5 H [facility] Platelets [#/volume] in Blood by Automated count 227 10*3/uL 150-400 [facility] Differential cell count method - Blood [facility] Neutrophils/100 leukocytes in Blood by Automated count 70 % [facility] Lymphocytes/100 leukocytes in Blood by Automated count 19 % [facility] Monocytes/100 leukocytes in Blood by Automated count 9 % [facility] Eosinophils/100 leukocytes in Blood by Automated count 1 % [facility] Basophils/100 leukocytes in Blood by Automated count 1 % [facility] Neutrophils [#/volume] in Blood by Automated count 4.23 10*3/uL 1.8-7 .0 [facility] Lymphocytes [#/volume] in Blood by Automated count 1.17 10*3/uL 1.2-4 .0 L [facility] Monocytes [#/volume] in Blood by Automated count 0.51 10*3/uL 0-0.8 [facility] Eosinophils [#/volume] in Blood by Automated count 0.06 10*3/uL 0-0.5 [facility] Basophils [#/volume] in Blood by Automated count 0.06 10*3/uL 0-0.2 [facility] Nucleated erythrocytes/100 leukocytes [Ratio] in Blood by Automated count 0 /100{WBCs} 0-0 [facility] ID Date Data Source [id number] 04/02/2021 12:09:13 PM EDT [facility] Name Value Range Interpretation Code Description Data Joyce rce(s) Supporting Document(s) Albumin [Mass/volume] in Serum or Plasma by Bromocresol green (BCG) dye binding method 4.4 g/dL 3.5-5.2 [facility] Bilirubin.total [Mass/volume] in Serum or Plasma 0.3 mg/dL <1.2 [facility] Calcium [Mass/volume] in Serum or Plasma 10.0 mg/dL 8.6-10.0 [facility] Chloride [Moles/volume] in Serum or Plasma 105 mmol/L 98-107 [facility] Creatinine [Mass/volume] in Serum or Plasma 0.76 mg/dL 0.50-0.90 [facility] Glucose [Mass/volume] in Serum or Plasma 93 mg/dL 70-140 [facility] Alkaline phosphatase [Enzymatic activity/volume] in Serum or Plasma 102 U/L 35-104 [facility] Potassium [Moles/volume] in Serum or Plasma 4.2 mmol/L 3.4-5.1 [facility] Protein [Mass/volume] in Serum or Plasma 7.5 g/dL 6.4-8.3 [facility] Sodium [Moles/volume] in Serum or Plasma 141 mmol/L 136-145 [facility] Aspartate aminotransferase [Enzymatic activity/volume] in Serum or Plasma 17 U/L <32 [facility] Urea nitrogen [Mass/volume] in Serum or Plasma 12 mg/dL 6-20 [facility] Osmolality of Serum or Plasma by calculation 291 mosm/kg 275-300 [facility] Creatinine/Urea nitrogen [Mass Ratio] in Serum or Plasma 16 [facility] Bicarbonate [Moles/volume] in Serum 22 mmol/L 22-29 [facility] Alanine aminotransferase [Enzymatic activity/volume] in Seru m or Plasma 20 U/L <33 [facility] Anion gap 3 in Serum or Plasma 14 mmol/L 8-15 [facility] Glomerular filtration rate/1.73 sq M pre dicted among non-blacks [Volume Rate/Area] in Serum or Plasma by Creatinine-based formula (MDRD) >6 0 [facility] Glomerular filtration rate/1.73 sq M pre dicted among blacks [Volume Rate/Area] in Serum or Plasma by Creatinine-based formula (MDRD) >60 [facility] ID Date Data Source [id number] 04/02/2021 02:07:34 PM EDT [facility] Value Range Interpretation Code Description Data Joyce rce(s) Supporting Document(s) Estradiol (E2) [Mass/volume] in Serum or Plasma 7.7 pg/mL [facility] (NOTE)Females Follic ular: 26.7-156.0Ovulation: 48.1-314.0Luteal: 33.1-298.0Post Menopausal: <49.9 ID Date Data Source [id number] 04/02/2021 02:35:32 PM EDT [facility] Value Range Interpretation Code Description Data Joyce rce(s) Supporting Document(s) Follitropin [Units/volume] in Serum or Plasma 102.0 mU/ml [facility] (NOTE)Females Follicul ar: 3.5- 12.5Ovulation: 4.7- 21.5Luteal: 1.7- 7.7Post Menopausal: 25.8-134.8 ID Date Data Source [id number] 03/26/2021 03:50:56 PM EDT [facility] Value Range Interpretation Code Description Data Joyce rce(s) Supporting Document(s) Progress Note [facility] QPEGVh4uLlDVDyMj10/GCUojEIOxj9BxPQviHEz7WWbaXLMdO8MnUPI1tA0jSTT3TEnLBgAxQuDeUXA6 [facility] [file] rdIVUkWd7YTXDFH6RKPu== ID Date Data Source [id number] 03/25/2021 08:28:51 AM EDT [facility] Name Value Range Interpretation Code Description Data Joyce rce(s) Supporting Document(s) Progress Note [facility] PQEBIg3xZdXOGcEo46/MHHdcVVPxa2EhXVqtJIc8NLtsGMObK1KvEAD4oD5dGWA0BGdTDzIvIhVeLES1 lbm [file] gvoFHreHndQUYXGqLeRxl5TYpdDRYSDo2H ID Date Data Source [id number] 03/12/2021 03:54:17 PM EDT [facility] Name Value Range Interpretation Code Description Data Joyce rce(s) Supporting Document(s) Progress Note [facility] NIVWEu1rKvKPFrIp48/LRUfwGZNog2McFAvsTDa8GFgePSLkG6UfJLK9oD5jPPK0KHuGBxRfAvPdMMC3 lbm [file] 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/ro2tgcHFDt1PYO8Glgdn8irK/Ax/8DKe/Cdg0K [file] bmRvYmoNCnhyZWYNCjAgMzINCjAwMDAwMDAwMDAgNj J1UeDaKj7QJQQyCTYrFHUnVfRmRNWmXQAvRIjpNBTqEFA3YjZ4YCXaXMEeNA3HTdFrMZRcMnoxTzizEM NeJFRwaq7FPHIeDVFcPIN3SgPgIQHtMPXiPSwhPUTzQXXfYLSiWZVdCTEzXC5IFwWxCNKaEea2NQHjBV RmLNOivx7JZDWxTOStGkk1UxNyZFKcJECjCNrmAMXx QHM7EsknSOKnMYEyRO4CNlQmIIEoERF9IEUvQDLwUGZtqq9XQXKcOYGbZOJ4AMXeZQXwJMVdACpkFHMc GRG0TjD2AYDkFPCtQW1IWeZzIICdETElCItxRURyTNGcim2LUYQsKOTrUEC5IoVaXZVySOCjJCfsXWGs RFLaKhQsTMPuKZPhHQ8CEkDnFLXsNSK3CBRvXXDsOT Dldk6WIRSzEJJrPeW6GaZkDBCoQPGsIWkgSVIkNFEhZBHsMLUnVLDoYQ3VMpClIKLhZUJ7MRYfQWWvTT Oeuh8PASLuVFAlBkt9PdEqFDVvWBKtFDcyAWDnYGU7AargZDVmZTCbHR1PEaIaBBAbUnN0UIntHDRcZM Fiyh7RVYKhBHNbLOpoUmAsTNEcKLHtADkfBEYkQOF4 BEX8GLWfRJCcSM8PRpUhHMZkVlAfYCDbRPIbBQBdbw1PSZEcUIByJoZ8BnJaMRWgINBfZWzmDWWtTOR6 IDD5VCOrXWNhYW8KZmKgUDNaSkg8MXRbGKIeXDNcyr6FSXHqRXPjBXDjMRWzVZUiTUGaBGpzBLPxKPV9 KCb1ARJhPJOxQO7GHwDjRUUnDoc8UHhkNFHgRKIstt 4SFOUpVILpLKs5YRWhXUCpTXPrGVc2bxNpgONqSHx2IR0ZS7InkcNeBgXQSf7Uu053NTSkVIDpCp5BZ6 uiNz4bPINsTHPYJx8CUZl2CkR5XSR6DwQjVcC4QBU4FmJgOSEwFAN6MRVfXZF4YKN+CBm6QaYyKFhfKG VwHCGlLAiiGONpAhXnPOc2JLZ1XzA9Fw0kYLXIGz7+GUfliCVioXrnSKTZUsUdJFR0JDglWLLTJn0U ID Date Data Source [id number] 03/05/2021 02:29:16 PM EDT [facility] Name Value Range Interpretation Code Description Data Joyce rce(s) Supporting Document(s) Progress Note [facility] LFLLXb5dYvDXMzNx00/XAZkxMKYbd7RaQRjdVUa9JYshBEFcP9LyQSS9qT6xNBW6MNsIErNuHnSuCrC7 lbm [file] dGE+DQogICAgICAgICAgICAgICAgICAgICAgICAgIC AgICAgICAgICAgICAgICAgICAgICAgICAgICAgICAgICAgICAgICAgICAgICAgICAgICAgICAgICAgIC AgICAgICAgICAgICAgDQogICAgICAgICAgICAgICAgICAgICAgICAgICAgICAgICAgICAgICAgICAgIC AgICAgICAgICAgICAgICAgICAgICAgICAgICAgICAg ICAgICAgICAgICAgICAgICAgICAgICAgDQogICAgICAgICAgICAgICAgICAgICAgICAgICAgICAgICAg ICAgICAgICAgICAgICAgICAgICAgICAgICAgICAgICAgICAgICAgICAgICAgICAgICAgICAgICAgICAg ICAgICAgDQogICAgICAgICAgICAgICAgICAgICAgIC AgICAgICAgICAgICAgICAgICAgICAgICAgICAgICAgICAgICAgICAgICAgICAgICAgICAgICAgICAgIC AgICAgICAgICAgICAgICAgDQogICAgICAgICAgICAgICAgICAgICAgICAgICAgICAgICAgICAgICAgIC AgICAgICAgICAgICAgICAgICAgICAgICAgICAgICAg ICAgICAgICAgICAgICAgICAgICAgICAgICAgDQogICAgICAgICAgICAgICAgICAgICAgICAgICAgICAg ICAgICAgICAgICAgICAgICAgICAgICAgICAgICAgICAgICAgICAgICAgICAgICAgICAgICAgICAgICAg ICAgICAgICAgDQogICAgICAgICAgICAgICAgICAgIC AgICAgICAgICAgICAgICAgICAgICAgICAgICAgICAgICAgICAgICAgICAgICAgICAgICAgICAgICAgIC AgICAgICAgICAgICAgICAgICAgDQogICAgICAgICAgICAgICAgICAgICAgICAgICAgICAgICAgICAgIC AgICAgICAgICAgICAgICAgICAgICAgICAgICAgICAg ICAgICAgICAgICAgICAgICAgICAgICAgICAgICAgDQogICAgICAgICAgICAgICAgICAgICAgICAgICAg ICAgICAgICAgICAgICAgICAgICAgICAgICAgICAgICAgICAgICAgICAgICAgICAgICAgICAgICAgICAg ICAgICAgICAgICAgDQogICAgICAgICAgICAgICAgIC AgICAgICAgICAgICAgICAgICAgICAgICAgICAgICAgICAgICAgICAgICAgICAgICAgICAgICAgICAgIC FzDYYyONQkSGMvIZNfLRYgSKNxXDMcQRp2I0nbYIVgMYRoOH9eNSw9Bf3+BFiMJyUtLKI4tbVlyY0LWD 4za9LpAKzxMVUxp2HbPSp2LT1CBSCwLCqsXZ2UOJch kv1YENToXBImgVKOz3maVqRyGPT7KLDvPgqsZA4HCTJwX3osrjMqKAZkHMYTFDjmJUCDEBUePFPgAlMt OmPwGFZlVR9NFPBeP111gdPpAV8SUb1CMvOlUS3crw2OZhyvITPoCcdUBwx2ORuwZH2CpSRjiMYiYGKe CXRADeQeW2fpb6AiIgAcMBTHIGreSV6Rf1EysAQfAF o+Uf1NIK1jx1JtEPbpIQQyRS5snz2EXGqLPhYwR6AufTguLLNpa1ceDPSnDK8ktZFkBDL3IXGjmoOoO7 bhxHepmzgcPXGeOUOkIv7cPQ6mOJTlQHVyLoSkSSUBHT5KNHOpCOCakJQpXFKdSTWOAQ2RFEezNAX3GH DjivVpkAMgETneFM0GFIOxgyNsNkiiBZKXDPr+Pg0K FL8tw6XgXTf3YEZjj0MxIJp4OH5PXGFeMBzyRSGlNK5jg0ZiF6V0VbQ2nXVtA4aswxquN4GzbvSxcpKo BVMcMQSlCM3DKJ9AWY4UKKNaNZzfED5JMFW0ANg1RlW7YfjfZFSkAAL7I96tEMrzKY2TVXf4G5RyS7RK FJEwAFMXKBHdoFH4AJYPRp4RE2LBYucUBROEUn2LDp OzI7ICR8jDU09NGX3TMCM+PiANCj4+WKaqnkEsGlkLJaRaPWHav2DiFLt4MF6ZVQDaWVfiOO9IWBXejV 6fUOjcJT1PNgRwJpEgMPAHYcKhA21mfWTiTXt3O9GfTsTbQOBzVehjBGWaSTmjQpKdEOWmOmKsKVpgLS 4+ID4+ZAydHM8BBZnsmjBhLRGgMw9MLLRhQLCmLW0f HERuDVCwA9P8kBnyHJOCIgWkC2gkzwluCQ6aSYSoS541hNhtlrXoZLO2JUWyAr9GQMMsTQJ6YYQheFAp FoznHFNCVRnuEJ0MaCAiUWK5yJ3xPJhoSUUdCHAoV3qRGrIyeScuUD08cEzthnDvfLLqYWd+Gr9GDG1d p5AhKKe7loQxHCtzQKAwLMvkJOKoDBFdPVTzCKA3NI U0NHIRKmTdFZVgWAXuJTixKJIrEWSgzg6QXRDmKEMiXhFiHKMaIILrPEJeZSrhFITpRER1EcK1UZMzGH XqGH1GXfBgJUCpYNSqYCflVWGmICCcdw0CPILhUNMoUvK3GWNvIHUsVOEjOSasFRLgETY2JnJvPHLtOD AvWL1FXyWyELEpBEU5FzwyFLFrIYAtmm9LHLZqPSQs FrX0BPYcDOQvMTElSLmuVXIjWWG0UAdeESBmNSYfMD4JTlAaDFSjHKl2DYThRBUxZJOsus5TNBBvLPCx VAf1SBNmWJLnKZRoTJdiJQRfOWXyHQK6PEEcTKOxHG6ECpBoDJWeXURtJWKmCKFlLRElvl6ZREQcCUEs VkOzHVZgGPLtEPKmQBqpPUNtEYTzAUV1OLIcXNIbGG 1OKuZaTCNiGTA7SKKeHFArMSItqe3ODMCbGYYjErP6CTIdCCNoYALoTHwjUAEtTPGxCdMdDMOkDFDgVF 2GWaSeGGLhNIQ7HfofSRZgLUPwen7BEYAgPAPjLGM4ICKeNUZkJQJmNVhjFZSrXMV7Ogj2AOHfDCPkNL 5LIbFcVGTzUlR9MXFwCREeIPQphr8DYTIqHWCfXgA3 OkCwNFRgYZDjUOurUOPySMO6Urm9YXBmBPDoER0PFsQgNSKiLjnhYHLpZHFmAOXtrn5LPGGdZVArWvCc LITyUVXmBSIjTWyxFTScLLM9WlE2DLIfUVDzWO2ETmLeRXBgBmmqZhAmMPLyIUAjpx3NYEWdVJBkESY3 DQMsVTFwOLDaTAidUVYvUTT4ZOW8VNKdRMDbHO2TAp JfLQWzRht0NmcrVWAgDDYsny1LsRFjqDjlok7ECGsYXf4YwSkpJDKkNYwoBz8pzGPtLTLzVPRJDh2Xcz EsUSNvMTJZNZwcXRZqBSA1JXCuKvJ3BRM2RWLjEXImPTNkN0CiWLduBQR6Zgi3JgU2YUZ2TZPrUtN7BJ cjJPXsKCAlADQeHePyO8EgYRaeUIK+GS4eIXg+Yv1Ag9NoqvI7jnNnGSriUOHwZz8JZMHEO3KWEj== ID Date Data Source [id number] 02/21/2021 04:51:54 PM EDT [facility] Name Value Range Interpretation Code Description Data Joyce rce(s) Supporting Document(s) Progress Note [facility] [id number]/PQCkoAAHyq3MpQBbbEHc2FYbsVFIwW0AvSJL3oX9aTBZ0XStWUxFvRqEdZdF1 lbm [file] 9GDQo= ID Date Data Source [id number] 02/18/2021 04:59:02 PM EDT [facility] NM CARDIAC VENTRICULOGRAM EF AT REST 784 72FINAL RESULTInterpreted by:Emigdio Morataya MDINDICATION: Concerns for 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 COMPARISON: None. FINDINGS: In the ERNESTO projection, the left ventricular ejection fraction was 66.8 %. Analysis of the gated study reveals no abnormalities of wall motion. Neither ventricle is enlarged. IMPRESSION:Normal resting ventriculogram. Resting left ventricular ejection fraction of 66.8%, which is within normal limits.This document has been electronically signed by Talia Alonso MD on 02/18/2021 4:56 PM Name Value Range Interpretation Code Description Data Joyce rce(s) Supporting Document(s) ID Date Data Source [id number] 02/05/2021 05:09:49 PM EDT [facility] Name Value Range Interpretation Code Description Data Joyce rce(s) Supporting Document(s) Progress Note [facility] [id number]/KZHgcMJNki6QwOCciLTg8SNaaUUAcK3GzKBP7zY9vQQE8CKlONsAlKzGpGaAv lbm [file] [id number]= ID Date Data Source [id number] 01/29/2021 05:37:02 PM EDT [facility] Name Value Range Interpretation Code Description Data Joyce rce(s) Supporting Document(s) Progress Note [facility] GQXPYq5bBrRGPyDa82/WVGitGMKwy3PcIGdjBZz9PPdlGJDpI5SoSLF2sO4oMES3VRtVIrBcHoLaSdZf lbm [file] [id number]== ID Date Data Source [id number] 01/27/2021 08:54:32 AM EDT [facility] Name Value Range Interpretation Code Description Data Joyce rce(s) Supporting Document(s) Progress Note [facility] [id number]/JKFshQOOpq3UbKGriDXf0BKjuXAXnG7XhIWG6cZ6dDPE1YAoBKkVpYvSoBeJe lbm [file] ID Date Data Source [id number] 01/20/2021 02:46:54 PM EDT [facility] Name Value Range Interpretation Code Description Data Joyce rce(s) Supporting Document(s) Progress Note [facility] [id number]/FPFrlTLOtu3SjUCtbCDv0UFqbZTLhN8GdEQX9aU3bWPE9MCgCUrRdIuLzLtQ7 lbm [file] ToEZItApQ3YcI+KO2mDZb+Uz6Nk0BxseV3tgRvSGeaDSX9PW3GYVKLY7CPWy== ID Date Data Source [id number] 01/09/2021 02:47:36 PM EDT [facility] Name Value Range Interpretation Code Description Data Joyce rce(s) Supporting Document(s) Leukocytes [#/volume] in Blood by Automated count 8.1 10*3/uL 4-10 [facility] Erythrocytes [#/volume] in Blood by Automated count 4.45 10*6/uL 4.1- 5.3 [facility] Hemoglobin [Mass/volume] in Blood 14.0 g/dL 11.5-15.5 [facility] Hematocrit [Volume Fraction] of Blood by Automated count 41.5 % 3 6-45 [facility] Erythrocyte mean corpuscular volume [Entitic volume] by Auto mated count 93.4 fL 80-96 [facility] Erythrocyte mean corpuscular hemoglobin [Entitic mass] by Automated count 31.4 pg 27-33 [facility] Erythrocyte mean corpuscular hemoglobin concentration [Mass/volume] by Automated count 33.7 g/dL 32.0-36.0 [facility] width [Ratio] by Automated count 14.0 % 11.5-14.5 [facility] Platelets [#/volume] in Blood by Automated count 237 10*3/uL 150-400 [facility] Differential cell count method - Blood [facility] Neutrophils/100 leukocytes in Blood by Automated count 55 % [facility] Lymphocytes/100 leukocytes in Blood by Automated count 34 % [facility] Monocytes/100 leukocytes in Blood by Automated count 8 % [facility] Eosinophils/100 leukocytes in Blood by Automated count 2 % [facility] Basophils/100 leukocytes in Blood by Automated count 1 % [facility] Neutrophils [#/volume] in Blood by Automated count 4.49 10*3/uL 1.8-7 .0 [facility] Lymphocytes [#/volume] in Blood by Automated count 2.77 10*3/uL 1.2-4 .0 [facility] Monocytes [#/volume] in Blood by Automated count 0.63 10*3/uL 0-0.8 [facility] Eosinophils [#/volume] in Blood by Automated count 0.17 10*3/uL 0-0.5 [facility] Basophils [#/volume] in Blood by Automated count 0.07 10*3/uL 0-0.2 [facility] Nucleated erythrocytes/100 leukocytes [Ratio] in Blood by Automated count 0 /100{WBCs} 0-0 [facility] ID Date Data Source [id number] 01/09/2021 03:20:38 PM EDT [facility] Name Value Range Interpretation Code Description Data Joyce rce(s) Supporting Document(s) Albumin [Mass/volume] in Serum or Plasma by Bromocresol green (BCG) dye binding method 3.8 g/dL 3.5-5.2 [facility] Bilirubin.total [Mass/volume] in Serum or Plasma <1.2 [facility] Calcium [Mass/volume] in Serum or Plasma 9.2 mg/dL 8.6-10.0 [facility] Chloride [Moles/volume] in Serum or Plasma 99 mmol/L 98-107 [facility] Creatinine [Mass/volume] in Serum or Plasma 0.65 mg/dL 0.50-0.90 [facility] Glucose [Mass/volume] in Serum or Plasma 86 mg/dL 70-140 [facility] Alkaline phosphatase [Enzymatic activity/volume] in Serum or Plasma 96 U/L 35-104 [facility] Potassium [Moles/volume] in Serum or Plasma 4.1 mmol/L 3.4-5.1 [facility] Protein [Mass/volume] in Serum or Plasma 6.8 g/dL 6.4-8.3 [facility] Sodium [Moles/volume] in Serum or Plasma 132 mmol/L 136-145 L [facility] Aspartate aminotransferase [Enzymatic activity/volume] in Serum or Plasma 21 U/L <32 [facility] Urea nitrogen [Mass/volume] in Serum or Plasma 12 mg/dL 6-20 [facility] Osmolality of Serum or Plasma by calculation 273 mosm/kg 275-300 L [facility] Creatinine/Urea nitrogen [Mass Ratio] in Serum or Plasma 18 [place] [facility] Bicarbonate [Moles/volume] in Serum 26 mmol/L 22-29 [facility] Alanine aminotransferase [Enzymatic activity/volume] in Seru m or Plasma 15 U/L <33 [facility] Anion gap 3 in Serum or Plasma 8 mmol/L 8-15 [facility] Glomerular filtration rate/1.73 sq M pre dicted among non-blacks [Volume Rate/Area] in Serum or Plasma by Creatinine-based formula (MDRD) >6 0 [facility] Glomerular filtration rate/1.73 sq M pre dicted among blacks [Volume Rate/Area] in Serum or Plasma by Creatinine-based formula (MDRD) >60 [facility] ID Date Data Source [id number] 12/30/2020 03:49:54 PM EDT [facility] Name Value Range Interpretation Code Description Data Joyce rce(s) Supporting Document(s) Progress Note [facility] TLEVBv6dPwLFBhIn83/FJEayNVKnt9SlCHosUCu8XTqmVHZeC8OyOXU4hO1eJWU5LLuNIsCiLgBqNNQ3 lbm [file] YNCg== ID Date Data Source [id number] 12/19/2020 02:34:52 PM EDT [facility] Name Value Range Interpretation Code Description Data Joyce rce(s) Supporting Document(s) Leukocytes [#/volume] in Blood by Automated count 7.6 10*3/uL 4-10 [facility] Erythrocytes [#/volume] in Blood by Automated count 4.23 10*6/uL 4.1- 5.3 [facility] Hemoglobin [Mass/volume] in Blood 13.6 g/dL 11.5-15.5 [facility] Hematocrit [Volume Fraction] of Blood by Automated count 39.5 % 3 6-45 [facility] Erythrocyte mean corpuscular volume [Entitic volume] by Auto mated count 93.5 fL 80-96 [facility] Erythrocyte mean corpuscular hemoglobin [Entitic mass] by Automated count 32.1 pg 27-33 [facility] Erythrocyte mean corpuscular hemoglobin concentration [Mass/volume] by Automated count 34.4 g/dL 32.0-36.0 [facility] width [Ratio] by Automated count 14.7 % 11.5-14.5 H [facility] Platelets [#/volume] in Blood by Automated count 259 10*3/uL 150-400 [facility] Differential cell count method - Blood [facility] Neutrophils/100 leukocytes in Blood by Automated count 56 % [facility] Lymphocytes/100 leukocytes in Blood by Automated count 31 % [facility] Monocytes/100 leukocytes in Blood by Automated count 8 % [facility] Eosinophils/100 leukocytes in Blood by Automated count 4 % [facility] Basophils/100 leukocytes in Blood by Automated count 1 % [facility] Neutrophils [#/volume] in Blood by Automated count 4.31 10*3/uL 1.8-7 .0 [facility] Lymphocytes [#/volume] in Blood by Automated count 2.38 10*3/uL 1.2-4 .0 [facility] Monocytes [#/volume] in Blood by Automated count 0.57 10*3/uL 0-0.8 [facility] Eosinophils [#/volume] in Blood by Automated count 0.27 10*3/uL 0-0.5 [facility] Basophils [#/volume] in Blood by Automated count 0.09 10*3/uL 0-0.2 [facility] Nucleated erythrocytes/100 leukocytes [Ratio] in Blood by Automated count 0 /100{WBCs} 0-0 [facility] ID Date Data Source [id number] 12/19/2020 03:13:34 PM EDT [facility] Name Value Range Interpretation Code Description Data Joyce rce(s) Supporting Document(s) Albumin [Mass/volume] in Serum or Plasma by Bromocresol green (BCG) dye binding method 4.1 g/dL 3.5-5.2 [facility] Bilirubin.total [Mass/volume] in Serum or Plasma <1.2 [facility] Calcium [Mass/volume] in Serum or Plasma 8.9 mg/dL 8.6-10.0 [facility] Chloride [Moles/volume] in Serum or Plasma 102 mmol/L 98-107 [facility] Creatinine [Mass/volume] in Serum or Plasma 0.69 mg/dL 0.50-0.90 [facility] Glucose [Mass/volume] in Serum or Plasma 102 mg/dL 70-140 [facility] Alkaline phosphatase [Enzymatic activity/volume] in Serum or Plasma 108 U/L 35-104 H [facility] Potassium [Moles/volume] in Serum or Plasma 3.6 mmol/L 3.4-5.1 [facility] Protein [Mass/volume] in Serum or Plasma 6.9 g/dL 6.4-8.3 [facility] Sodium [Moles/volume] in Serum or Plasma 138 mmol/L 136-145 [facility] Aspartate aminotransferase [Enzymatic activity/volume] in Serum or Plasma 33 U/L <32 H [facility] Urea nitrogen [Mass/volume] in Serum or Plasma 8 mg/dL 6-20 [facility] Osmolality of Serum or Plasma by calculation 285 mosm/kg 275-300 [facility] Creatinine/Urea nitrogen [Mass Ratio] in Serum or Plasma 12 [facility] Bicarbonate [Moles/volume] in Serum 26 mmol/L 22-29 [facility] Alanine aminotransferase [Enzymatic activity/volume] in Seru m or Plasma 27 U/L <33 [facility] Anion gap 3 in Serum or Plasma 10 mmol/L 8-15 [facility] Glomerular filtration rate/1.73 sq M pre dicted among non-blacks [Volume Rate/Area] in Serum or Plasma by Creatinine-based formula (MDRD) >6 0 [facility] Glomerular filtration rate/1.73 sq M pre dicted among blacks [Volume Rate/Area] in Serum or Plasma by Creatinine-based formula (MDRD) >60 [facility] ID Date Data Source [id number] 12/04/2020 06:55:32 AM EDT [facility] Name Value Range Interpretation Code Description Data Joyce rce(s) Supporting Document(s) Progress Note [facility] WTFRFy6fDnOTOgPa85/SHDxoAGJva1NwMYaxZId6BZorZKKfD5MbFLC1bT5lZNO3LRxYScYtCxQgOYJ3 [facility] [file] 0K ID Date Data Source [id number] 12/03/2020 02:49:43 PM EDT [facility] Name Value Range Interpretation Code Description Data Joyce rce(s) Supporting Document(s) Progress Note [facility] LGDLVk0iScFLMoUi50/UROkdLVUyg1JaDShkILu8DYvlWTTzV6JsWIE8xO7xBSB5USyTWdKaZqAoRSN0 lbm [file] UjRPNsBZEdUOHeUwDtXgo6H7DyJM8dLSVJHc9+ENqlgHWhnSikWAYVRbhvTIPqYNmsYYGRSv3U ID Date Data Source [id number] 12/03/2020 09:04:30 AM EDT [facility] Name Value Range Interpretation Code Description Data Joyce rce(s) Supporting Document(s) Progress Note [facility] IINOCy0iPsEPQqJv35/CGIamJMEph8IeUOqiOHp7QSdvFWKiS3YtYQG5fZ2mQHH8NHmBEhDdNxLtEME3 lbm [file] ID Date Data Source [id number] 11/29/2020 05:30:17 PM EDT [facility] Name Value Range Interpretation Code Description Data Joyce rce(s) Supporting Document(s) Progress Note [facility] EHVSBv8kGzVIMxQv96/GBGfqUKZyu2WzEXamJJh2YDvrXERdN2OzZPQ6yB4zUCJ2JTnVYoHuFzEiWJAk lbm [file] VjAmZuB0N2Q3CkBtLFSbVRR8QKA+PL9sUVq+Wj1Eu6RyvaT6giEcWBhmLcOuLP3URNAGG8XTOz== ID Date Data Source [id number] 11/29/2020 10:00:03 AM EDT [facility] Name Value Range Interpretation Code Description Data Joyce rce(s) Supporting Document(s) Progress Note [facility] ZQAQQn3tXyVFEsYp14/QJTmyRRCnq6BeTAiiJQh9ONpdLPNoN4KqPKH0aC0tMHH5FTsLGxKzLdMrPJEk lbm [file] AgICAgICAgICAgICAgICAgICAgICAgICAgICAgICAgICAgICAgICAgICAgICAgICAgICAgICAgICAgIC AgICAgICAgICAgICAgICAgICAgICAgICAgICAgICAgICANCiAgICAgICAgICAgICAgICAgICAgICAgIC AgICAgICAgICAgICAgICAgICAgICAgICAgICAgICAg ICAgICAgICAgICAgICAgICAgICAgICAgICAgICAgICAgICAgICAgICAgICANCiAgICAgICAgICAgICAg ICAgICAgICAgICAgICAgICAgICAgICAgICAgICAgICAgICAgICAgICAgICAgICAgICAgICAgICAgICAg ICAgICAgICAgICAgICAgICAgICAgICAgICANCiAgIC AgICAgICAgICAgICAgICAgICAgICAgICAgICAgICAgICAgICAgICAgICAgICAgICAgICAgICAgICAgIC AgICAgICAgICAgICAgICAgICAgICAgICAgICAgICAgICAgICANCiAgICAgICAgICAgICAgICAgICAgIC AgICAgICAgICAgICAgICAgICAgICAgICAgICAgICAg ICAgICAgICAgICAgICAgICAgICAgICAgICAgICAgICAgICAgICAgICAgICAgICANCiAgICAgICAgICAg ICAgICAgICAgICAgICAgICAgICAgICAgICAgICAgICAgICAgICAgICAgICAgICAgICAgICAgICAgICAg ICAgICAgICAgICAgICAgICAgICAgICAgICAgICANCi AgICAgICAgICAgICAgICAgICAgICAgICAgICAgICAgICAgICAgICAgICAgICAgICAgICAgICAgICAgIC AgICAgICAgICAgICAgICAgICAgICAgICAgICAgICAgICAgICAgICANCiAgICAgICAgICAgICAgICAgIC AgICAgICAgICAgICAgICAgICAgICAgICAgICAgICAg ICAgICAgICAgICAgICAgICAgICAgICAgICAgICAgICAgICAgICAgICAgICAgICAgICANCiAgICAgICAg ICAgICAgICAgICAgICAgICAgICAgICAgICAgICAgICAgICAgICAgICAgICAgICAgICAgICAgICAgICAg ICAgICAgICAgICAgICAgICAgICAgICAgICAgICAgIC ANCiAgICAgICAgICAgICAgICAgICAgICAgICAgICAgICAgICAgICAgICAgICAgICAgICAgICAgICAgIC AgICAgICAgICAgICAgICAgICAgICAgICAgICAgICAgICAgICAgICAgICANCjw/dOPcV4bjsHGbxhZ9H7 uiGp1UEb1QKA0xb0YgWYLbUMbxjlLbMwuLTdWxYNSo QvxXWji9HMcxZP1LqSOeU7QpH7ZkWEfuLO6JJRKqKDXyuPIdTRDbFGNoVgQ5NLKoNKnzIQ1NcQXbEYly OOGqAXMbVF8UPRAyT745rkXxHP1IXr8VMuQwJX7nbp3BKOnhSFSxGnlVHvh1NJzoCF5QgVCpyTAgJWBo XXXQWgEjR8uvx1SgGrFqIWHMWOcuZY5Xt5BhwWRiIJ o+Ye4PNY5jn2NxQYwvOWXsDX2tqk1PRMeKWoMkL6SoxNqiHMTtq1gbNHEiIV8mlFTfMNM8DJtkcmYzNS ZiFZLyyCjdJRDoyIUuuIGzYMoMF1jyFWBrUG0gYs6iDWEsNRZrDyB3KDFYLZ6OMMEgAPTriHDzJKLcBO HGUU9BPLtmKPH8WBXfggPxwDAqSIijYH9MGAEgapAb MTkgMCBSDQo+Xb5GXJ4wc6AyTYdkACPuEQ8yoa2KMMnDGhLfZ3U5hULgD6B1OEfsTt9RFTVhZIJxKRrd WIZKWXihYM7SLK3cscE4PC8GpFWnYDCzJPFrqYNnLUc7G36fyNUkLUydGG6HDDP+Ron+Vu1VZODpQEVl KQJfUnPqUEDBImFgG1PpS4GEn6NcY2ZpAH07bJemdh IaRWfsEF1VRY7oMTUpHFPPUI7FeUAfgS2iqcPfXMBoZFMOSpCkC46tqMDaSLUoOXZ4YPQkSo1SKZAyP1 McsjVrbHehhrHiYPNsEJZSPB7PWNxzawXxbTMqtIrkOS20dIovVL3YMd6ZMhWkSB5zkd1UvBFrXt0QEI TxMv3FQVQmCZVeHXOzHHU9QNGuYhCrHOkoBJBaSSGe SMF2LVYtDEGiBU8EXmNlRNOhRJv4BbYtXRPvLMHatj0NTJIiHZTxWMD8ITZcMINhZVXnMIdjNNExZRQv TJP1TLRqGAVpVS9CNgOdHFClKAM5SYbmMDAaEXBwkm1ELSRdFPXyKvOaQxBtIPUiBOTvAUiaICBrSMDk PJMaOPAiYMZzJZ9YUaTwASJqCUYlVOxkTCRdUYZpxm 1GBWYnETGzNQAqYdUyDSSeHVXdPFtaKZOuDGX4Gzq3KIEoQPDjLD7MXwDkJYEdVQJ2HVfiLVPcZHNgbr 5KLMEcIJOnJSW4HKUmMXDpAHYuGJryGWPaIAV0PSA8BXFfOTKnDT4PVpBeNUFqKQfrPYWvDXTqOJTbbc 9ZMDYlXEUxBbV9SKIrIVEyGENeYDceQKRpDJO8NSI5 UNZyNSWvIF6XCvIqWPWjKKq5NGHiREBmFXEunh8AXZNuNWPwHPF3XMBtACNrUUNkMFhhOYOrMLB1Oso8 XDTwVUFtLV4WWdTxLZTdZSv2OQwkDRXzLNYpfe9PNKZwKVEwXBQkVXJqZBErFCBtFAb0akNqtQLbMUq7 YI4CE5WqhxMxQwGKHt7Xh900RQTfXLAsAv9KJ9soKv 7rRDGkJTCRSq5VPYk5DxZaZDQrCpVwHKVtJMhaEET2XGSnXKklQSL0QrEvKuh+EHebJhQdTPJ7LxAdMh B9A3TzEHD1X0D4ULE2DfI1HbXsRC1hTYZVTh5+UVekzZSbpNkbYVTVBrCwEhIrXQlgBUHBTf6X ID Date Data Source [id number] 11/28/2020 10:34:06 AM EDT [facility] Name Value Range Interpretation Code Description Data Joyce rce(s) Supporting Document(s) Leukocytes [#/volume] in Blood by Automated count 6.9 10*3/uL 4-10 [facility] Erythrocytes [#/volume] in Blood by Automated count 4.38 10*6/uL 4.1- 5.3 [facility] Hemoglobin [Mass/volume] in Blood 13.8 g/dL 11.5-15.5 [facility] Hematocrit [Volume Fraction] of Blood by Automated count 41.2 % 3 6-45 [facility] Erythrocyte mean corpuscular volume [Entitic volume] by Auto mated count 94.2 fL 80-96 [facility] Erythrocyte mean corpuscular hemoglobin [Entitic mass] by Automated count 31.6 pg 27-33 [facility] Erythrocyte mean corpuscular hemoglobin concentration [Mass/volume] by Automated count 33.6 g/dL 32.0-36.0 [facility] Erythrocyte distribution width [Ratio] by Automated count 14.7 % 11.5-14.5 H [facility] Platelets [#/volume] in Blood by Automated count 293 10*3/uL 150-400 [facility] Differential cell count method - Blood [facility] Neutrophils/100 leukocytes in Blood by Automated count 61 % [facility] Lymphocytes/100 leukocytes in Blood by Automated count 28 % [facility] Monocytes/100 leukocytes in Blood by Automated count 8 % [facility] Eosinophils/100 leukocytes in Blood by Automated count 2 % [facility] Basophils/100 leukocytes in Blood by Automated count 1 % [facility] Neutrophils [#/volume] in Blood by Automated count 4.26 10*3/uL 1.8-7 .0 [facility] Lymphocytes [#/volume] in Blood by Automated count 1.93 10*3/uL 1.2-4 .0 [facility] Monocytes [#/volume] in Blood by Automated count 0.55 10*3/uL 0-0.8 [facility] Eosinophils [#/volume] in Blood by Automated count 0.14 10*3/uL 0-0.5 [facility] Basophils [#/volume] in Blood by Automated count 0.05 10*3/uL 0-0.2 [facility] Nucleated erythrocytes/100 leukocytes [Ratio] in Blood by Automated count 0 /100{WBCs} 0-0 [facility] ID Date Data Source [id number] 11/28/2020 11:15:33 AM EDT [facility] Name Value Range Interpretation Code Description Data Joyce rce(s) Supporting Document(s) Albumin [Mass/volume] in Serum or Plasma by Bromocresol green (BCG) dye binding method 4.1 g/dL 3.5-5.2 [facility] Bilirubin.total [Mass/volume] in Serum or Plasma <1.2 [facility] Calcium [Mass/volume] in Serum or Plasma 9.4 mg/dL 8.6-10.0 [facility] Chloride [Moles/volume] in Serum or Plasma 104 mmol/L 98-107 [facility] Creatinine [Mass/volume] in Serum or Plasma 0.81 mg/dL 0.50-0.90 [facility] Glucose [Mass/volume] in Serum or Plasma 93 mg/dL 70-140 [facility] Alkaline phosphatase [Enzymatic activity/volume] in Serum or Plasma 102 U/L 35-104 [facility] Potassium [Moles/volume] in Serum or Plasma 4.0 mmol/L 3.4-5.1 [facility] Protein [Mass/volume] in Serum or Plasma 6.9 g/dL 6.4-8.3 [facility] Sodium [Moles/volume] in Serum or Plasma 139 mmol/L 136-145 [facility] Aspartate aminotransferase [Enzymatic activity/volume] in Serum or Plasma 20 U/L <32 [facility] Urea nitrogen [Mass/volume] in Serum or Plasma 11 mg/dL 6-20 [facility] Osmolality of Serum or Plasma by calculation 287 mosm/kg 275-300 [facility] Creatinine/Urea nitrogen [Mass Ratio] in Serum or Plasma 14 [facility] Bicarbonate [Moles/volume] in Serum 26 mmol/L 22-29 [facility] Alanine aminotransferase [Enzymatic activity/volume] in Seru m or Plasma 16 U/L <33 [facility] Anion gap 3 in Serum or Plasma 9 mmol/L 8-15 [facility] Glomerular filtration rate/1.73 sq M pre dicted among non-blacks [Volume Rate/Area] in Serum or Plasma by Creatinine-based formula (MDRD) 84 mL/min/1.73m2 >60 [facility] Glomerular filtration rate/1.73 sq M pre dicted among blacks [Volume Rate/Area] in Serum or Plasma by Creatinine-based formula (MDRD) >60 [facility] ID Date Data Source [id number] 11/22/2020 02:02:08 PM EDT [facility] Name Value Range Interpretation Code Description Data Joyce rce(s) Supporting Document(s) Progress Note [facility] JINZPu5cVxFWXeWt48/XVClgRAFps2DlPOrpSQk6BCkoGQFcU1JdDCX3pJ9oZYZ9AEuSOqFsSuWyZZG6 lbm [file] AgICAgICAgICAgICAgICAgICAgICAgICAgICAgICAgICAgICAgICAgICAgICAgICAgICAgICAgICAgIC AgICAgICAgICAgICAgICAgICAgICAgICAgICAgICAgDQogICAgICAgICAgICAgICAgICAgICAgICAgIC AgICAgICAgICAgICAgICAgICAgICAgICAgICAgICAg ICAgICAgICAgICAgICAgICAgICAgICAgICAgICAgICAgICAgICAgICAgDQogICAgICAgICAgICAgICAg ICAgICAgICAgICAgICAgICAgICAgICAgICAgICAgICAgICAgICAgICAgICAgICAgICAgICAgICAgICAg ICAgICAgICAgICAgICAgICAgICAgICAgDQogICAgIC AgICAgICAgICAgICAgICAgICAgICAgICAgICAgICAgICAgICAgICAgICAgICAgICAgICAgICAgICAgIC AgICAgICAgICAgICAgICAgICAgICAgICAgICAgICAgICAgDQogICAgICAgICAgICAgICAgICAgICAgIC AgICAgICAgICAgICAgICAgICAgICAgICAgICAgICAg ICAgICAgICAgICAgICAgICAgICAgICAgICAgICAgICAgICAgICAgICAgICAgDQogICAgICAgICAgICAg ICAgICAgICAgICAgICAgICAgICAgICAgICAgICAgICAgICAgICAgICAgICAgICAgICAgICAgICAgICAg ICAgICAgICAgICAgICAgICAgICAgICAgICAgDQogIC AgICAgICAgICAgICAgICAgICAgICAgICAgICAgICAgICAgICAgICAgICAgICAgICAgICAgICAgICAgIC AgICAgICAgICAgICAgICAgICAgICAgICAgICAgICAgICAgICAgDQogICAgICAgICAgICAgICAgICAgIC AgICAgICAgICAgICAgICAgICAgICAgICAgICAgICAg ICAgICAgICAgICAgICAgICAgICAgICAgICAgICAgICAgICAgICAgICAgICAgICAgDQogICAgICAgICAg ICAgICAgICAgICAgICAgICAgICAgICAgICAgICAgICAgICAgICAgICAgICAgICAgICAgICAgICAgICAg ICAgICAgICAgICAgICAgICAgICAgICAgICAgICAgDQ ogICAgICAgICAgICAgICAgICAgICAgICAgICAgICAgICAgICAgICAgICAgICAgICAgICAgICAgICAgIC ZrGEFsFZUkTZRpEGUzFYMqIOQpXLLhPQHjQNTnFUXqAOPyZNWvSZGhLPz2U5obMUQyNGNzLZ6iJRh1Ce 8+ZHxDSqOcMDQ4qaKntQ0PXZ4lp0VcEZysMATck8Kt YFj9WT0WJWAgVKqbYO8FBBzihr2VCQKwVZIduPTPe7buFxGwYQQ8MDMuQuhfTV3PLOClA6zxjnWwAIGf ZTTILRhqKIVKITghDNHKKN0ZHwZpR4LngQ15SEYBDg8+SXjjbqYrPxpNXvJ8UVJly2IwCCz5LJ8FMMPy Olgec1YaRxifUJULHMmgNV2BBHE5SBS8FLHxPq4FYV FqL581ccVsFY2LGs3EWuCaML6mhb2HEjktNLHrMpmJDuh9BDdsTN9LzBXzIEyAhu8wmfFgiqYWp1Uokz QywIRFeIMtGB81HNMpYEHQLTUpgHAdLwK7WzXqIbHxBNq6GCYjBC9lHGxsLG1YYSZ7VFsiXGRgENDpB2 rPYdMzUFQxRWFoiHjaKB4KUnXhO0ZgeqKmbWQmZqJq IFINCj4+PMaydtDlLyoVFyE4GTUcm6XrULd1TZ9XLWRlZAhpGK1EQDLxzO8cOExrSS4SRqPwLVPxJRHA PlBgD83sgLAfGDk8J8QuByIqQXJlUmqfTYOwSDyzEzPgNYKcUxYtQGqiAJ9+ID4+SDvrPI9FIItjpyMu NWVxDl9KNLTgVJDmMW5gACFfZXToI3Z5mPtoRKAIAb QoF7vpzjvmRA1xNPScK222xSdwjbIaHLT3QMHmYs7TJYJiAAV6JEAqzVSxLtUlEBDDXQaxTS5NqPZdDC H0gF7pCPsvMQBkZWDgR7iVGhRtqDsyAU04kIzklzDfbTDnVBr+Bh7GDM1qn7DkDRx6uiIxEUojUDE6RV azNYXyRNHhNRNnALH4FNE5IKXZOgIoLLOdKRZuUOwy SUQyJOYaai4WWOKsSSPvJSZiBGQpYDZrQQQhEKqgNJQnWIU3AgZ6OWZxFJImKE5GOcErVLMdYFTrIKsf CAYnABDrfp9PPEYfKATyXbv8ROSrVQAnFRGvLXmlLSUdBNPdDXP2MHHqRWByTR9ZXeLsHBOsBTHoIIJs EKIeBBAdnw5NSYAuEMSoOgJ1JrEtTTWaUSOqPCqmKJ IxXHR3GKO3KVYoOWPsGA7BVdIdYEDzXFhuIjgiOUTgITVdih4ZOKVdEPYkWCU6KPHvKKBfNZQwLEjyUH ThFVF1Fqh7XWPdWBFwOA4FWcSvCKQtORe4EbkxGUQmVNCouu7LSLTkXTQwFQMjFpKoAUEvMZQuORshPR CgHWFrRsZ7ANEcCWIqCC2JNdGsCARsKDX2EmraYVRs OHXrgj4BZBFnIJMuRpM6LiWzEHPaWPNzCHjeSWGbOMXdAwnhDJLiUSXyUL3PEfVgDOHsZdF0LOOzSFTs YXDjew0MJXGsPIWaFtO5OKRsWHSgSRVhFRdtJFWvXORmKdo3TVFyVDXtHZ9NUvWuREJyVgDgGnVyCZIn LMXzha6OCAZlCDUkWRRhOCEyTFYkIIIkAMvhVXZcXH S0XLs9NUOpIZXrLL7UPqNyNTQpKiOsEPStMDNsOSWvys9CIXPlUXMrIlA7WUFvJCDqFFWbLCkfDRWjVD B8WBE8FXHsIVLbDK3MMfXgBULxTkF3PMYwYKHwILPtxk7GoRKyuCzyfn9SQXdOPa3QoVpqQVN9GLliHy 9xiWBbWTSeSNFIBl0NqlTsPHCjXCHEIJmtFDDwBFMn KrL7DAUrMrCsFzF0R6ZlBGXpPMW2IVNeZgNkYUV8SkF6ZcHsGeg5YJSxDEYsRgbkBJO1ZORbRMdkWwB8 QKZ7SOn+QG8dZCj+Vc1Wp1IcpuG1yzBwRRamTcfbZK6MPJLJU3ULLt== ID Date Data Source [id number] 11/06/2020 11:43:13 AM EDT [facility] Name Value Range Interpretation Code Description Data Joyce rce(s) Supporting Document(s) Progress Note [facility] KXXLDh4wRhBFTiGu53/VZGbdNQXxn2XiBTmoVSb8DXdmZYCrC0TbPZS3aE3gNNZ7RDmRNvKlJdXsJpYv lbm BpIefFAxZwIJLoDbfREfNyHNyxVskxaQDfKG9VyAS1CVThA38jRIFnVSSwW6OaGEU2CrC+Pk7WFWGxhP JgHL0BNsvB6Wjxnpg3PR+NyZ7dtXLFhkbAqR5CcXSJuxND54YCnQTqRYZwESv7O2u1Zb5jipMW0hjk/F mNdzFD2ElGKs4/y++0vStE8+hNjJkUcvrB4c/tr0ka iPOZ+SCQlRlyd7wwj6/YUCGt2BHXKIvUJ5A//oLDgdh/5gqLaweAokEyDBFlOaHaMHzGb18u9coC6c0+ ZM6H44ZkXMc+9/lZcZOoco5NK6/3sSe4GR4WmBgjeyayDJr1pE+bbR9xGot4DE7k193yWcEWjiLl7YTw UMMD9Q4yjdBjS9n1m3Nu7YabqB3kbg4Wjydk/hJ30B UDjSpAAs0du7LKbbEB3qPmj/RUKBE8a1db70F8pQ9L9gZ7bgqSy31uRRGy6MdAyg1icnKEnL8GZXMajJ ibwZsHxMSwcss5xAmEXJ8Y4669NcHG6yv2xy/xCrfUOsa6WU2to63JiwuuGjwQIrwURd2jAbIVk7Pjjm Dv+6jw3TUmu7+KdrXHAdlrZE8Cv6V+7dBBNXqtKz+N rcyisxYr1k3wrJPNcSQ6Ael/84y5iKVaxLXIBGIAFkabJGbwLV061UQzoTv9iwYezNPDyLZ9wouQ8Sq1 +AslS+e9MpDVfi3uKRjI0YDth1G7e4NgMAzam4ZWtkti+WZAN0ptfspt2N6FgflOSl/6vlKCMWL7cls3 GUbs+eSiofcWo8cOfUaoYtX9+hRGK6vP2BEtqgIaRG qWXlIbx0/I0euF6t2eNhOHYQ6TyljxibVDoAmRuEhj3QHdNqLKRHRvuYBcmf/ioNBV3L1txqcakQg/nZ MLFnMpd1nEWGDysGyI4LeNUaqJBzhPnl///2zwMCaKy1YotTJoUDq726PqsG29MbbnFPO+FwfiKL [file] ID Date Data Source [id number] 10/21/2020 04:51:57 AM EDT [facility] Name Value Range Interpretation Code Description Data Joyce rce(s) Supporting Document(s) Progress Note [facility] OVAITk2iVmYUAuNd14/YZXelOADcq5BzZTfjAXf8JKpxEIQlK5MnIEJ1kQ0sQDI7BIrNTsBfNkJeXfN9 lbm CyMzdETqPtULGzXctXWgBiQGsfBmdhwXInDT4UhHX4IOKxK56oZXRsLFIrX9WxJHSwXwx+Cn4VXQJnbX UtLG5ELqsC8W14l4aPSt+/PC3ZkFVwQMsMDkz5mmC2gTxQEct9lCEY3O/SAnRtNz8jh4YBnIg87YT4fj lRP9+CV07Ftu4PRjQ7Nmr9004gwk4752ncPprODt8+ d/WfvEev5Hi565+3PZvcKy9Tc6YX0KYhMyASF2N/Mq5zaoy03k1s9TEIjZ8v3SWzY8k+c4Hk4Vm/fPTT 0OXM2iyoeim1jUiLxR+8j4/rdLig5Hd0ViY/Pn7s7f/kwuu44udwUsdX00mme1mBrekNxUfoJNHBAzUh nAmfj5xeWOpzBDVkwKF1urwZIHnMaW5bYZPEa7JZtb B4w8DtzAv6CRgGP0Qx3E3ChmU1Sz36MTiw5V/IcLW0Gg/Mx+un7g8Vd9oKl0L8aigqxz3CwQFEmjO8Ga LtnHAB+lDT9CVXrxgriZyn5vR2uytwpNZFCxgXuk/86Sgm9XJ+e+us1pITiz3w5Wb5L797Zgcov/HDOF 4Q7cH80+8wW5BoJfG8yC5JnCSYdlG9bENreA8cRVNK Oxana+tpp7Ly5fMaqWbzUPBfRpu//h58fZn36oVKnMdjAPEuR/SSO2iKYY0owTROgT6v3MIGWgsrKOQ2JI [file] [id number]= ID Date Data Source [id number] 10/11/2020 10:40:00 AM EST [facility]) Name Value Range Interpretation Code Description Data Joyce rce(s) Supporting Document(s) thyroid stimulating hormone 3.010 uIU/mL 0.358-3.740 Thyroid Stimulating Hormone VENICE ([facility]) free T4 0.92 NG/dL 0.76-1.46 Free T4 [facility]) ID Date Data Source [id number] 10/11/2020 10:40:00 AM EST VENICE ([facility]) Name Value Range Interpretation Code Description Data Joyce rce(s) Supporting Document(s) glucose, fasting 100 mg/dL 70-100 Glucose, Fasting AT [facility]) blood urea nitrogen 8 mg/dL 7-18 Blood Urea Nitro gen VENICE ([facility]) creatinine for GFR 0.63 mg/dL 0.55-1.30 Creatinine for GF R VENICE ([facility]) glomerular filtration rate > 60.0 >58 Glomerula r Filtration Rate REZA ([facility]) sodium level 140 mEq/L 136-145 Sodium Level REZA ([facility]) potassium serum 4.1 mEq/L 3.5-5.1 Potassium Serum ATHE ([facility]) chloride level 109 mEq/L 98-107 Above high normal Chloride Level VENICE ([facility]) carbon dioxide level 27 mEq/L 21-32 Carbon Dioxide Level VENICE ([facility]) anion gap 4 mEq/L 8-16 Below low normal Anion Gap VENICE ( [facility]) calcium level 9.2 mg/dL 8.5-10.1 Calcium Level [facility]) AST/SGOT 18 U/L 7-37 AST/SGOT REZA ([facility]) ALT/SGPT 25 U/L 12-78 ALT/SGPT REZA ([facility]) alkaline phosphatase 111 U/L 45-117 Alkaline Phosph atase REZA ([facility]) bilirubin,total 0.2 mg/dL 0.2-1.0 Bilirubin,total ATHE NA ([facility]) total protein 6.4 gm/dL 6.4-8.2 Total Protein REZA ( [facility]) albumin 3.2 gm/dL 3.2-5.2 Albumin REZA ([facility]) albumin/globulin ratio 1.2-2.2 Below low normal Albumin /globulin Ratio REZA ([facility]) ID Date Data Source [id number] 10/11/2020 10:40:00 AM EST REZA ([facility]) Name Value Range Interpretation Code Description Data Joyce rce(s) Supporting Document(s) thyroid stimulating hormone 3.010 uIU/mL 0.358-3.740 Thyroid Stimulating Hormone REZA ([facility]) free T4 0.92 NG/dL 0.76-1.46 Free T4 VENICE ([facility]) ID Date Data Source [id number] 10/11/2020 10:40:00 AM EST REZA ([facility]) Name Value Range Interpretation Code Description Data Joyce rce(s) Supporting Document(s) glucose, fasting 100 mg/dL 70-100 Glucose, Fasting AT [place] ([facility]) creatinine for GFR 0.63 mg/dL 0.55-1.30 Creatinine for GF R REZA ([facility]) glomerular filtration rate > 60.0 >58 Glomerula r Filtration Rate REZA ([facility]) blood urea nitrogen 8 mg/dL 7-18 Blood Urea Nitro gen REZA ([facility]) potassium serum 4.1 mEq/L 3.5-5.1 Potassium Serum ATHE NA ([facility]) sodium level 140 mEq/L 136-145 Sodium Level REZA ([facility]) chloride level 109 mEq/L 98-107 Above high normal Chloride Level REZA ([facility]) anion gap 4 mEq/L 8-16 Below low normal Anion Gap REZA ( [facility]) carbon dioxide level 27 mEq/L 21-32 Carbon Dioxide Level REZA ([facility]) calcium level 9.2 mg/dL 8.5-10.1 Calcium Level REZA ( [facility]) AST/SGOT 18 U/L 7-37 AST/SGOT REZA ([facility]) ALT/SGPT 25 U/L 12-78 ALT/SGPT REZA ([facility]) bilirubin,total 0.2 mg/dL 0.2-1.0 Bilirubin,total ATHE ([facility]) alkaline phosphatase 111 U/L 45-117 Alkaline Phosph atase REZA ([facility]) albumin 3.2 gm/dL 3.2-5.2 Albumin REZA ([facility]) albumin/globulin ratio 1.2-2.2 Below low normal Albumin /globulin Ratio REZA ([facility]) total protein 6.4 gm/dL 6.4-8.2 Total Protein REZA ( [facility]) ID Date Data Source [id number] 10/11/2020 10:40:00 AM EST REZA ([facility]) Name Value Range Interpretation Code Description Data Joyce rce(s) Supporting Document(s) glucose, fasting 100 mg/dL 70-100 Glucose, Fasting AT [facility] ([facility]) glomerular filtration rate > 60.0 >58 Glomerula r Filtration Rate REZA ([facility]) creatinine for GFR 0.63 mg/dL 0.55-1.30 Creatinine for GF R REZA ([facility]) blood urea nitrogen 8 mg/dL 7-18 Blood Urea Nitro gen REZA ([facility]) potassium serum 4.1 mEq/L 3.5-5.1 Potassium Serum ATHE NA ([facility]) sodium level 140 mEq/L 136-145 Sodium Level REZA ([facility]) chloride level 109 mEq/L 98-107 Above high normal Chloride Level REZA ([facility]) anion gap 4 mEq/L 8-16 Below low normal Anion Gap REZA ( [facility]) carbon dioxide level 27 mEq/L 21-32 Carbon Dioxide Level REZA ([facility]) ALT/SGPT 25 U/L 12-78 ALT/SGPT REZA ([facility]) calcium level 9.2 mg/dL 8.5-10.1 Calcium Level REZA ( [facility]) AST/SGOT 18 U/L 7-37 AST/SGOT REZA ([facility]) total protein 6.4 gm/dL 6.4-8.2 Total Protein REZA ( [facility]) alkaline phosphatase 111 U/L 45-117 Alkaline Phosph atase REZA ([facility]) bilirubin,total 0.2 mg/dL 0.2-1.0 Bilirubin,total ATHE ([facility]) albumin 3.2 gm/dL 3.2-5.2 Albumin REZA ([facility]) albumin/globulin ratio 1.2-2.2 Below low normal Albumin /globulin Ratio REZA ([facility]) ID Date Data Source [id number] 10/11/2020 10:40:00 AM EST REZA ([facility]) Name Value Range Interpretation Code Description Data Joyce rce(s) Supporting Document(s) thyroid stimulating hormone 3.010 uIU/mL 0.358-3.740 Thyroid Stimulating Hormone REZA ([facility]) free T4 0.92 NG/dL 0.76-1.46 Free T4 REZA ([facility]) ID Date Data Source [id number] 10/11/2020 10:40:00 AM EST REZA ([facility]) Name Value Range Interpretation Code Description Data Joyce rce(s) Supporting Document(s) glucose, fasting 100 mg/dL 70-100 Glucose, Fasting AT [facility] ([facility]) glomerular filtration rate > 60.0 >58 Glomerula r Filtration Rate REZA ([facility]) blood urea nitrogen 8 mg/dL 7-18 Blood Urea Nitro gen REZA ([facility]) creatinine for GFR 0.63 mg/dL 0.55-1.30 Creatinine for GF R REZA ([facility]) potassium serum 4.1 mEq/L 3.5-5.1 Potassium Serum ATHE NA ([facility]) chloride level 109 mEq/L 98-107 Above high normal Chloride Level REZA ([facility]) sodium level 140 mEq/L 136-145 Sodium Level REZA ([facility]) carbon dioxide level 27 mEq/L 21-32 Carbon Dioxide Level REZA ([facility]) calcium level 9.2 mg/dL 8.5-10.1 Calcium Level REZA ( [facility]) anion gap 4 mEq/L 8-16 Below low normal Anion Gap REZA ( [facility]) AST/SGOT 18 U/L 7-37 AST/SGOT REZA ([facility]) ALT/SGPT 25 U/L 12-78 ALT/SGPT REZA ([facility]) bilirubin,total 0.2 mg/dL 0.2-1.0 Bilirubin,total ATHE NA ([facility]) total protein 6.4 gm/dL 6.4-8.2 Total Protein REZA ( [facility]) alkaline phosphatase 111 U/L 45-117 Alkaline Phosph atase REZA ([facility]) albumin 3.2 gm/dL 3.2-5.2 Albumin REZA ([facility]) albumin/globulin ratio 1.2-2.2 Below low normal Albumin /globulin Ratio REZA ([facility]) ID Date Data Source [id number] 10/11/2020 10:40:00 AM EST REZA ([facility]) Name Value Range Interpretation Code Description Data Joyce rce(s) Supporting Document(s) free T4 0.92 NG/dL 0.76-1.46 Free T4 REZA ([facility]) thyroid stimulating hormone 3.010 uIU/mL 0.358-3.740 Thyroid Stimulating Hormone REZA ([facility]) ID Date Data Source [id number] 10/11/2020 10:40:00 AM EST REZA ([facility]) Name Value Range Interpretation Code Description Data Joyce rce(s) Supporting Document(s) glucose, fasting 100 mg/dL 70-100 Glucose, Fasting AT [facility] ([facility]) creatinine for GFR 0.63 mg/dL 0.55-1.30 Creatinine for GF R REZA ([facility]) blood urea nitrogen 8 mg/dL 7-18 Blood Urea Nitro gen REZA ([facility]) glomerular filtration rate > 60.0 >58 Glomerula r Filtration Rate REZA ([facility]) sodium level 140 mEq/L 136-145 Sodium Level REZA ([facility]) potassium serum 4.1 mEq/L 3.5-5.1 Potassium Serum ATHE NA ([facility]) carbon dioxide level 27 mEq/L 21-32 Carbon Dioxide Level REZA ([facility]) chloride level 109 mEq/L 98-107 Above high normal Chloride Level REZA ([facility]) anion gap 4 mEq/L 8-16 Below low normal Anion Gap REZA ( [facility]) calcium level 9.2 mg/dL 8.5-10.1 Calcium Level REZA ( [facility]) ALT/SGPT 25 U/L 12-78 ALT/SGPT REZA ([facility]) AST/SGOT 18 U/L 7-37 AST/SGOT REZA ([facility]) alkaline phosphatase 111 U/L 45-117 Alkaline Phosph atase REZA ([facility]) bilirubin,total 0.2 mg/dL 0.2-1.0 Bilirubin,total ATHE NA ([facility]) total protein 6.4 gm/dL 6.4-8.2 Total Protein REZA ( [facility]) albumin 3.2 gm/dL 3.2-5.2 Albumin REZA ([facility]) albumin/globulin ratio 1.2-2.2 Below low normal Albumin /globulin Ratio REZA ([facility]) ID Date Data Source [id number] 10/11/2020 10:40:00 AM EST VENICE ([facility]) Name Value Range Interpretation Code Description Data Joyce rce(s) Supporting Document(s) thyroid stimulating hormone 3.010 uIU/mL 0.358-3.740 Thyroid Stimulating Hormone REZA ([facility]) free T4 0.92 NG/dL 0.76-1.46 Free T4 VENICE ([facility]) ID Date Data Source [id number] 10/11/2020 10:40:00 AM EST REZA ([facility]) Name Value Range Interpretation Code Description Data Joyce rce(s) Supporting Document(s) blood urea nitrogen 8 mg/dL 7-18 Blood Urea Nitro gen VENICE ([facility]) glucose, fasting 100 mg/dL 70-100 Glucose, Fasting AT [facility]) creatinine for GFR 0.63 mg/dL 0.55-1.30 Creatinine for GF R [facility]ICE ([facility]) glomerular filtration rate > 60.0 >58 Glomerula r Filtration Rate REZA ([facility]) sodium level 140 mEq/L 136-145 Sodium Level REZA ([facility]) carbon dioxide level 27 mEq/L 21-32 Carbon Dioxide Level VENICE ([facility]) potassium serum 4.1 mEq/L 3.5-5.1 Potassium Serum ATH NA ([facility]) chloride level 109 mEq/L 98-107 Above high normal Chloride Level [facility]ICE ([facility]) anion gap 4 mEq/L 8-16 Below low normal Anion Gap REZA ( [facility]) calcium level 9.2 mg/dL 8.5-10.1 Calcium Level REZA ( [facility]) ALT/SGPT 25 U/L 12-78 ALT/SGPT REZA ([facility]) AST/SGOT 18 U/L 7-37 AST/SGOT REZA ([facility]) alkaline phosphatase 111 U/L 45-117 Alkaline Phosph atase REZA ([facility]) bilirubin,total 0.2 mg/dL 0.2-1.0 Bilirubin,total ATHE ([facility]) albumin 3.2 gm/dL 3.2-5.2 Albumin REZA ([facility]) total protein 6.4 gm/dL 6.4-8.2 Total Protein REZA ( [facility]) albumin/globulin ratio 1.2-2.2 Below low normal Albumin /globulin Ratio REZA ([facility]) ID Date Data Source [id number] 10/11/2020 10:40:00 AM EST REZA ([facility]) Name Value Range Interpretation Code Description Data Joyce rce(s) Supporting Document(s) thyroid stimulating hormone 3.010 uIU/mL 0.358-3.740 Thyroid Stimulating Hormone REZA ([facility]) free T4 0.92 NG/dL 0.76-1.46 Free T4 VENICE ([facility]) ID Date Data Source [id number] 10/11/2020 10:40:00 AM EST REZA ([facility]) Name Value Range Interpretation Code Description Data Joyce rce(s) Supporting Document(s) glucose, fasting 100 mg/dL 70-100 Glucose, Fasting AT [facility]) blood urea nitrogen 8 mg/dL 7-18 Blood Urea Nitro gen REZA ([facility]) creatinine for GFR 0.63 mg/dL 0.55-1.30 Creatinine for GF R REZA ([facility]) glomerular filtration rate > 60.0 >58 Glomerula r Filtration Rate REZA ([facility]) sodium level 140 mEq/L 136-145 Sodium Level REZA ([facility]) potassium serum 4.1 mEq/L 3.5-5.1 Potassium Serum ATHE NA ([facility]) chloride level 109 mEq/L 98-107 Above high normal Chloride Level VENICE ([facility]) anion gap 4 mEq/L 8-16 Below low normal Anion Gap REZA ( [facility]) carbon dioxide level 27 mEq/L 21-32 [facility] calcium level 9.2 mg/dL 8.5-10.1 Calcium Level REZA ( [facility]) AST/SGOT 18 U/L 7-37 AST/SGOT REZA ([facility]) ALT/SGPT 25 U/L 12-78 ALT/SGPT REZA ([facility]) bilirubin,total 0.2 mg/dL 0.2-1.0 Bilirubin,total ATHE NA ([facility]) alkaline phosphatase 111 U/L 45-117 Alkaline Phosph atase REZA ([facility]) albumin 3.2 gm/dL 3.2-5.2 Albumin REZA ([facility]) total protein 6.4 gm/dL 6.4-8.2 Total Protein REZA ( [facility]) albumin/globulin ratio 1.2-2.2 Below low normal Albumin /globulin Ratio VENICE ([facility]) ID Date Data Source [id number] 10/11/2020 10:40:00 AM EST VENICE ([facility]) Name Value Range Interpretation Code Description Data Joyce rce(s) Supporting Document(s) free T4 0.92 NG/dL 0.76-1.46 Free T4 REZA ([facility]) thyroid stimulating hormone 3.010 uIU/mL 0.358-3.740 Thyroid Stimulating Hormone VENICE ([facility]) ID Date Data Source [id number] 10/07/2020 07:53:39 AM [facility] NM INJECTION RADIOACTIVE TRACER - SENTIN AL NODEFINAL RESULTInterpreted by:Elizabeth Hodge MDLE BREAST LYMPHOSCINTIGRAPHY FOR SENTINEL LYMPH NODE BIOPSY - INJECTION: PROCEDURALIST: Elizabeth Hodge, DOTECHNOLOGIST: ALONDRA Menendez, LNCOThe skin around the areola was cleansed with ChloraPrep. An intradermal injection of 499 uCi of Lymphoseek was given in the superior periareolar region.A small round bandage was placed over the injection site.No images were obtained.The patient tolerated the procedure well. There were no immediate complications.This document has been electronically signed by Elizabeth Hodge MD on 10/07/2020 7:51 AM Name Value Range Interpretation Code Description Data Joyce rce(s) Supporting Document(s) ID Date Data Source [id number] 10/03/2020 06:34:57 PM [facility] Name Value Range Interpretation Code Description Data Joyce rce(s) Supporting Document(s) Progress Note [facility] [id number]/RRJrmTXXqt7YrCFyzABf6LDujNAVhZ4PjAFH4vQ6oCUP3MAuFJaUuOoEwGtG7 lbm [file] [id number]VkNL0XHAk= ID Date Data Source [id number] 10/03/2020 12:37:32 PM EST [facility] Name Value Range Interpretation Code Description Data Joyce rce(s) Supporting Document(s) Discharge Summary [facility] DCFRSe4cQiSTJqLz04/WCCmnCOVzh1YjLLvpQGj7LXrySQSdD9AlBDG9rA2gSYT5EAuNPxEnDuTfNyL8 lbm [file] ICAgICAgICAgICAgICAgICAgICAgICAgICAgICAgICAgICAgICAgICAgICAgICAgICAgICAgICAgICAg ICAgICAgICAgICAgICAgICAgICAgICANCiAgICAgIC AgICAgICAgICAgICAgICAgICAgICAgICAgICAgICAgICAgICAgICAgICAgICAgICAgICAgICAgICAgIC AgICAgICAgICAgICAgICAgICAgICAgICAgICAgICAgICANCiAgICAgICAgICAgICAgICAgICAgICAgIC AgICAgICAgICAgICAgICAgICAgICAgICAgICAgICAg ICAgICAgICAgICAgICAgICAgICAgICAgICAgICAgICAgICAgICAgICAgICANCiAgICAgICAgICAgICAg ICAgICAgICAgICAgICAgICAgICAgICAgICAgICAgICAgICAgICAgICAgICAgICAgICAgICAgICAgICAg ICAgICAgICAgICAgICAgICAgICAgICAgICANCiAgIC AgICAgICAgICAgICAgICAgICAgICAgICAgICAgICAgICAgICAgICAgICAgICAgICAgICAgICAgICAgIC AgICAgICAgICAgICAgICAgICAgICAgICAgICAgICAgICAgICANCiAgICAgICAgICAgICAgICAgICAgIC AgICAgICAgICAgICAgICAgICAgICAgICAgICAgICAg ICAgICAgICAgICAgICAgICAgICAgICAgICAgICAgICAgICAgICAgICAgICAgICANCiAgICAgICAgICAg ICAgICAgICAgICAgICAgICAgICAgICAgICAgICAgICAgICAgICAgICAgICAgICAgICAgICAgICAgICAg ICAgICAgICAgICAgICAgICAgICAgICAgICAgICANCi AgICAgICAgICAgICAgICAgICAgICAgICAgICAgICAgICAgICAgICAgICAgICAgICAgICAgICAgICAgIC AgICAgICAgICAgICAgICAgICAgICAgICAgICAgICAgICAgICAgICANCiAgICAgICAgICAgICAgICAgIC AgICAgICAgICAgICAgICAgICAgICAgICAgICAgICAg ICAgICAgICAgICAgICAgICAgICAgICAgICAgICAgICAgICAgICAgICAgICAgICAgICANCiAgICAgICAg ICAgICAgICAgICAgICAgICAgICAgICAgICAgICAgICAgICAgICAgICAgICAgICAgICAgICAgICAgICAg ICAgICAgICAgICAgICAgICAgICAgICAgICAgICAgIC ANCjw/hTZgF2ptfVFjyiS5V1xuAj6UYw7YSW5on1SoMSKgWXmkiwZpEsnRWxOnPJYwZbqOOrt0TWexYS 4XuVJvD0NeD2BwCCioMT9QXBOwFMMoeJFrSBVcNBLhVbF7DZEwZPpnEO1AvIOjFDnjCXTrGHPwPhQhCM IgOSAwIFIgMTEgMCBSIDEzIDAgUiAxNSAwIFIgMTcg BCSNVH5JSsImJ0QfcT18AByZRi8+CKnnsoAzAeuZGeXkMNIep0TrZWx3EA5DNMZrDdjgr6DxCUJtJUPL UItmWF4CERS9SRPjPKKpQz3CDTOkY425hxGkKI1JFb0IPsWcWP2rqy0VUZTbJHSyUmeNBfb9ABezGK7U fNNeJZhStRPumGDbB4EtR7CxlUBzxMBmuYGNCL1dam GbB5sahh2oDXXPJNLnhKUyYoW9WhOeGkJwJPm9FEubHL6kJRuqRO7AYIC5JNybGRNmGRUbE2fTKrMoIN HjKUCrhMaaTX9SVqMwF6KxthRjiVN3GtFlTXQNHn2+PMcrstLaUqwNDjS3VAMki9LdCAp7UQ7REBYnGI ssLA7GYVYnnL2qMXgyYJ9SMdE8IZWhLTLCGoBxH08g pHBiWAq4L3MrGnFdFINvSayhNTUvXCqlNvOeKCUdQuNnXWruEX4+ID4+ZJtvFI3ZOPoxpgAfKHBfCr1H TLWgKNAePE0lNKFpZBRwL9N4aVucIGLXAeZeI6lojtaiRC7kVIGqU964aPkzahBbJJNdBPJeFc1OPZLb WOT4LCAvpLUbHPMnUTESAUwnGT5WcBWcMNN1wM4sKG ruVWPoRFOfP1yWJyFasAmfBP06nMmlisZrbBJpSHs+Co4SJR8as5PxUGo5zkOhSJooRZO3HDdkBOTyJI MpNYLqTTO6VKX5AWFXZpYdNHHzDPTnOIkmHRHfDXGewc7SKNMfKTL3CGD5DsVlSOQpGUWbOSzuWRVhQG Z1HII9QHEbGVJlOK9GXuBsSDOsFEYnBNkpHGGbNPLa vj8KBAZnJKUhWwd5QNUpKILdQLKmKQgsURReGEKvCMi0IAWcFDVuXF1MMoFaNZUrKEP5DlYvTQCvOQMh kq0ENLDcVHNrYRX8GAArGHYaHSFuEYyrVAUeUMK8UTi3MIQoTEViCX7ZBpZjDDWgRJvlMNjvORPyIKHq kz5WXPBqOMXsFqTqWVOqPPVwTLGoPYaaWFCyGGXiVD QqSNEgOGYlAA7CCdIuKVTlXEDwHXRdENLwOMUqsn5LATZpZPXuWrY0JHExKMMuUKGtISsmJRMpUMRqRH OeGWPfZERxHI8BKoBrVYHlRmX3QFhrMVNjXXKauu4DBXAjEPJiGwN4YjAcTILmVPCyPYhxWELuNCYdGq CfQCYdOSNfSE7MYnAhQRHzJjOvIhMjHVDoTTLqdb7C GHJcFEHmMtU7UIYjVFIcFXOiQPqfVKSxRLRmRgYrLMNyWCUeIE9AKdJqKHWhPuT0YJFlSBVlKZMuto6Q JRWzOFGbCOkwDfAlRJMgVHJgKWjuTTGeDEL0UTacKOVoSPSnBB2TYnPoSWBrTfLwQoEgTMPtGNUxls7I ANCaPBEqAyR7GEQlUWFgVRTrWHezXOFvAFW2AMFkKI ViPHNhIL2DKbTjQWMuCnoaCIYpBYHyOJGlil3YMGFoNYOrMgP1SSFmGXEqYLMmLKdeGBWwHUT2FzWePW GaBXOwWC2EHhAfSWFqDnr2QdUeGDLbPYFzop6TRVAuNWUaMFK6UXEkGBVjTHLwTCutZCFvWINyNPU4IQ HgLLDmIN1SQnJtJBScGEC5AwCcCGSbFBNbgo1KZSUd OVI5Yad5VEPbVUKjLLGoHGecTKQoWMU4SoP0DWEcOPKiLN1XJhUaTUQiNLJbZmOpDDXrFZFqrn0MTGKj QPA7KTXxAPIvDWHnOIVjWImxCYIeJML7LUg7NAGzFVVeEZ7CDwJbGVTgJJZ5YuFbQEYzOVSaob9KSDAi YSW4LyVhOVNjTLJaJSBtPRowEQSyXWJ1OlLyOVGzCB LyXZ3ACcKlCXWbWRg2KcFmUDIyAWTsuc1VSADdYTY6VbfwFAYlPVPjMFPzSPl0jsHggJHxBCw0ID5CU8 WualQfDMBDNe0Ty986WTO7CAFyTs1FV1jaFm3tOGPgZVXGVb5HDVf7QkfsMCX2MDJwOiNiENE1KZOrVI FdASFlRJI9Jik8DlE+PHrfCXI7ICf2BwBkUZA1AYNw UAM9N0YtRUH3FbF3TWC4Jm4pZFOBPf4+MIumbLYpbMknGDQYQsV0KJB0GBosDLFTXd7N ID Date Data Source [id number] 10/03/2020 09:43:20 AM EST [facility] Name Value Range Interpretation Code Description Data Joyce rce(s) Supporting Document(s) Progress Note [facility] IPYPWp1jTqMJZfWf94/CFJpqCCRyf3JlUFxnGLu0CSvlHDTxW1VlGZL1hL6iAEP2ZKaRIcGoMaZhLkS8 lbm [file] [id number]== ID Date Data Source [id number] 10/03/2020 04:35:49 AM [facility] Name Value Range Interpretation Code Description Data Joyce e(s) Supporting Document(s) Leukocytes [#/volume] in Blood by Automated count 11.2 10*3/uL 4-10 H [facility] Erythrocytes [#/volume] in Blood by Automated count 4.00 10*6/uL 4.1- 5.3 L [facility] Hemoglobin [Mass/volume] in Blood 12.7 g/dL 11.5-15.5 [facility] Hematocrit [Volume Fraction] of Blood by Automated count 37.7 % 3 6-45 [facility] Erythrocyte mean corpuscular volume [Entitic volume] by Auto mated count 94.3 fL 80-96 [facility] Erythrocyte mean corpuscular hemoglobin [Entitic mass] by Automated count 31.6 pg 27-33 [facility] Erythrocyte mean corpuscular hemoglobin concentration [Mass/volume] by Automated count 33.6 g/dL 32[facility]0-[facility].0 [facility] width [Ratio] by Automated count 15.4 % 11.5-14.5 H [facility] Platelets [#/volume] in Blood by Automated count 249 10*3/uL 150-400 [facility] Differential cell count method - Blood [facility] Neutrophils/100 leukocytes in Blood by Automated count 70 % [facility] Lymphocytes/100 leukocytes in Blood by Automated count 20 % [facility] Monocytes/100 leukocytes in Blood by Automated count 9 % [facility] Eosinophils/100 leukocytes in Blood by Automated count 0 % [facility] Basophils/100 leukocytes in Blood by Automated count 1 % [facility] Neutrophils [#/volume] in Blood by Automated count 7.87 10*3/uL 1.8-7 .0 H [facility] Lymphocytes [#/volume] in Blood by Automated count 2.26 10*3/uL 1.2-4 .0 [facility] Monocytes [#/volume] in Blood by Automated count 1.01 10*3/uL 0-0.8 H [facility] Eosinophils [#/volume] in Blood by Automated count 0.04 10*3/uL 0-0.5 [facility] Basophils [#/volume] in Blood by Automated count 0.05 10*3/uL 0-0.2 [facility] Nucleated erythrocytes/100 leukocytes [Ratio] in Blood by Automated count 0 /100{WBCs} 0-0 [facility] ID Date Data Source [id number] 10/03/2020 04:48:46 AM [facility] Name Value Range Interpretation Code Description Data Joyce rce(s) Supporting Document(s) Bicarbonate [Moles/volume] in Serum 22 mmol/L 22-29 [facility] Chloride [Moles/volume] in Serum or Plasma 107 mmol/L 98-107 [facility] Creatinine [Mass/volume] in Serum or Plasma 0.50 mg/dL 0.50-0.90 [facility] Glucose [Mass/volume] in Serum or Plasma 95 mg/dL 70-140 [facility] Potassium [Moles/volume] in Serum or Plasma 3.6 mmol/L 3.4-5.1 [facility] Sodium [Moles/volume] in Serum or Plasma 138 mmol/L 136-145 [facility] Urea nitrogen [Mass/volume] in Serum or Plasma 8 mg/dL 6-20 [facility] Anion gap 3 in Serum or Plasma 9 mmol/L 8-15 [facility] Osmolality of Serum or Plasma by calculation 284 mosm/kg 275-300 [facility] Creatinine/Urea nitrogen [Mass Ratio] in Serum or Plasma 16 [facility] Calcium [Mass/volume] in Serum or Plasma 8.8 mg/dL 8.6-10.0 [facility] Glomerular filtration rate/1.73 sq M pre dicted among non-blacks [Volume Rate/Area] in Serum or Plasma by Creatinine-based formula (MDRD) >6 0 [facility] Glomerular filtration rate/1.73 sq M pre dicted among blacks [Volume Rate/Area] in Serum or Plasma by Creatinine-based formula (MDRD) >60 [facility] ID Date Data Source [id number] 10/02/2020 05:37:19 PM [facility] Name Value Range Interpretation Code Description Data Joyce rce(s) Supporting Document(s) Progress Note [facility] [id number]/ZOLbsZYWta3KdRNqrDGg9YWazSUDtH6NzFRX4jH4bVIK8DJhMHcEbLlRyBzW8 lbm [file] M+[id number]+My3Wd8VmngB7tiQtTLdyLfNwBy8TSLCYL0VJBz== ID Date Data Source [id number] 10/02/2020 01:39:00 PM EST [facility] Name Value Range Interpretation Code Description Data Joyce rce(s) Supporting Document(s) SARS-CoV-2 RNA 2019 nCoV Real-Time RT-PCR: NOT DETECTED [facility] This lab was ordered by [facility] and reported by [facility]. 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 [facility] Patient has symptoms related to [facility] When did you start to experience these symptoms [Date and time] [Phen X] [facility] Patient was hospitalized because of this [facility] patient was admitted to ICU for [facility] Patient resides in a congregate care setting [facility] status [facility] ID Date Data Source [id number] 10/02/2020 01:05:08 PM [facility] Name Value Range Interpretation Code Description Data Joyce rce(s) Supporting Document(s) Operative Note [facility] [id number]/XWFyjLXHau5DwFHqoKGy1HNgjPVZtI6SfTMQ1uI1sCBW1MDqTKtDqBaHvDyW5 lb [file] [id number]+UClvjJArdObyVBNDQwYpTKH9GIsaYUNIRf4Z ID Date Data Source [id number] 10/02/2020 08:51:38 AM EST [facility] Name Value Range Interpretation Code Description Data Joyce [facility](s) Supporting Document(s) History and Physical [facility] [id number]/ZLRnwXCKxk7NsAPhoIEy8RFbgAITpM5NmYRO3lW9xFCY5QLxRNbTfDkUgGnL4 lbm [file] ULVgOBZbQCbgTwhdBJYjWjSnLwXsNX3CGp6PMbK8FXZ0tZDhBg9TBBJ0MT1GNZDYL0AMTp== ID Date Data Source [id number] 10/08/2020 11:52:00 AM EST [facility] Surgical Pathology ReportName: POLO RAMIREZMRN: [id number] Number: [id number] Date: 10/02/2020 00:00Received Date: 10/03/2020 08:14Physician(s): GIOVANNY BORJA MD SHARMA, RANJNA, MDSpecimen(s) ReceivedA: Left mastectomyB: Left sentinel node #1C: Left sentinel node #2D: Left sentinel node #3Clinical HistoryBreast cancer.DiagnosisA) BREAST, LEFT, TOTAL MASTECTOMY: INVASIVE DUCTAL CARCINOMA, TWO FOCI.(See microscopic description and Synoptic Report).B) SENTINEL LYMPH NODE (1), LEFT #1, EXCISION: NEGATIVE FOR MALIGNANCY.C) SENTINEL LYMPH NODE (2), LEFT #2, EXCISION: NEGATIVE FOR MALIGNANCY.D) SENTINEL LYMPH NODE (1), LEFT #3, EXCISION: NEGATIVE FOR MALIGNANCY.Synoptic Report:Specimen Procedure: Total mastectomy Specimen Laterality: LeftTumor Tumor Site: Clock position Clock Position: 11 o'clock Histologic Type: Invasive carcinoma of no special type (ductal) Glandular (Acinar) / Tubular Differentiation: Score 3 Nuclear Pleomorphism: Score 2 Mitotic Rate: Score 3 Overall Grade: Grade 3 (scores of 8 or 9) Tumor Size: 4 x 4 x 4 Millimeters (mm) Tumor Focality: Single focus of invasive carcinoma Ductal Carcinoma In Situ (DCIS): Present Size (Extent) of DCIS: Cannot be determined Number of Blocks with DCIS: 3 Number of Blocks Examined: 14 Architectural Patterns: Cribriform Nuclear Grade: Grade II (intermed iate) Necrosis: Not identified Lobular Carcinoma In Situ (LCIS): Not identified Lymphovascular Invasion: Not identified Dermal Lymphovascular Invasion: Not identified Microcalcifications: Not identified Treatment Effect in the Breast: Probable or definite response topresurgical therapy in the invasive carcinomaMargins Invasive Carcinoma Margins: Uninvolved by invasive carcinoma Distance from Closest Margin (Millimeters): 8 mm Closest Margin(s): Anterior Distance from Other Margins Anterior Margin (Millimeters): 8 Posterior Margin (Millimete rs): >30 Superior Margin (Millimeters): 30 Inferior Margin (Millimeters): >30 Medial Margin (Millimeters): >30 Lateral Margin (Millimeters): >30 DCIS Margins: Uninvolved by DCIS Distance from Closest Margin (Millimeters): 4 mm Closest Margin(s): InferiorLymph Nodes Regional Lymph Nodes: Uninvolved by tumor cells Total Number of Lymph Nodes Examined: 4 Number of [place] Nodes Examined: 4Pathologic Stage Classification (pTNM, AJCC 8th Edition) TNM Descriptors: y (post-treatment) Primary Tumor (pT): pT1a Regional Lymph Nodes Modifier: (sn): [place] node(s) evaluated. Regional Lymph Nodes (pN): [id number] Findings Additional Findings: Atypical ductal hyperplasia, duct ectasia,adenosis, biopsy site changes.Breast Biomarker Testing Performed on Previous Biopsy Testing Performed on Estrogen Receptor (ER) Status: Negative Progesterone Receptor (PgR) Status: Positive Percentage of Cells with Nuclear Positivity: 51-60% HER2 (by immunohistochemistry): Positive (Score 3+)Comments A small separate focus of invasive ductal carcinoma, grade 1 ispresent in the lower inner quadrant (13 cm from the main tumor), [id number] in maximum dimension, and present 0.2mm from the inferior margin andgreater than 3 cm from all other margins. It shows positive ER and PA(strong, 100% staining each) and a negative [id number] (0). [facility] September 2019 Annual Release Susy Irving M.D.;Resident PathologistElectronically Signed By Vanda Cheung M.D., Attending Pathologist10/08/2020 11:52:34 The attending pathologist named above attests that he/she has personallyreviewed the relevant preparation(s) for the specimen, performedmicroscopic examination when indicated, and rendered the final diagnosis. Gross DescriptionThe specimen is received in four parts.Part A is received in formalin labeled with the patient's name "Purnima" and "left ma stectomy". It consists of an 804.6 gram, 19.7 x 16.0x 7.5 cm oriented mastectomy specimen which is partially surfaced by an18.2 x 5.5 cm johnson-pink wrinkled unremarkable skin ellipse. A 3.5 x 2.3 cmnipple/areolar complex is identified centrally on the skin surface, anddisplays a 1.5 x 1.2 x 0.9 cm everted, soft nipple. Sutures aredesignated by the surgeon as short - superior, long - lateral. A 2.8 x1.5 x 1.4 cm ill-defined, pink-gil firm lesion is identified in the lowerinner quadrant which is arbitrarily designated as lesion A. Lesion Acomes to within 0.1 cm of the inferior margin and greater than 3.0 cm ofthe deep, superior, superficial, lateral, medial margins, and skinsurface/nipple. Also identified is a 0.9 x 0.4 x 0.4 cm ill-defined,white-gil firm lesion at approximately 12 o'clock which is arbitrarilydesignated as lesion B. Lesion B comes to 1.1 cm of the superficialmargin, 3.0 cm of the superior margin and greater than 3.0 cm of the deep,inferior, lateral, medial margins and skin/nipple. Lesion B comes to 13.5cm of lesion A. Also identified is a 1.0 x 0.3 x 0.3 cm ill-defined,pink-gil firm lesion at approximately 1 o'clock which is arbitrarilydesignated as lesion C. Lesion C comes to 3.6 cm of lesion B, 0.9 cm ofthe deep margin, 2.1 cm of the superficial margin, and greater than 3.0 cmof the superior, inferior, lateral, medial margins and skinsurface/nipple. The ma rgins are inked (deep - black, superficial -orange, inferior - green). No biopsy markers are identified. Theremaining cut surfaces are predominantly yellow, homogeneous adiposetissue and minimal white-pink dense fibrous tissue. No lymph nodes areidentified in the upper outer quadrant. Assistant Media Planner sections aresubmitted to include ambulatory services representative level A and entire lesions B and C asfollows:A1 - entire nipple.A2-4 - lesion A/inferior margin.A5 - section between lesions A and B.A6-8 - lesion B (A6-7 superficial margin, A8 remainder).A9 - section between lesions B and C. A10 - lesion C/deep margin.A11 - upper inner quadrant.A12 - lower inner quadrant.A13 - lower outer quadrant.A14 - upper outer quadrant.Out of body time 1100, in formalin time 1103.Part B is received in formalin labeled with the patient's name "Purnima" and "left sentinel node #1". It consists of a 4.5 x 2.0 x 1.5 cmaggregate of irregular, yellow, soft fatty tissue fragments. A 2.5 x 1.5x 0.9 cm lymph node is identified which displays yellow fatty cutsurfaces. The lymphoid tissue is entirely submitted in one cassette asfollows:B1 - one bisected lymph node.Out of body time 1105, in formalin time 1109. Part C is received in formalin labeled with the patient's name "Purnima" and "left sentinel node #2". It consists of a 2.7 x 2.1 x 1.1 cmirregular, yellow, soft fatty tissue fragment. Two lymph nodes areidentified which average 0.7 x 0.7 x 0.5 cm each. The lymphoid tissue isentirely submitted as follows:C1 - two whole lymph nodes.Out of body time 1111, in formalin time 1113.Part D is received in formalin labeled with the patient's name "Purnima" and "left sentinel node #3". It consists of a 4.0 x 2.5 x 1.5 cmirregular, yellow soft tissue fragment. A 0.3 x 0.3 x 0.2 cm lymph nodeis identified. The lymphoid tissue is entirely submitted in one cassetteas follows:D1 - one whole lymph node.Out of body time 1119, in formalin time 1120.CTC/hjgMicroscopic DescriptionThe lesion A that was identified grossly shows scattered foci of ductalcarcinoma in situ and a 2 mm focus of grade 1 invasive ductal carcinomathat is present at 0.2 mm from inferior margin, in the lower innerquadrant. Multiplex staining containing P63/Myosin was performed on blockA3 and confirms the diagnosis of invasive carcinoma. There is a residualfocus of grade 3 invasive ductal carcinoma at 11 o'clock that correspondsto the previously diagnosed ductal carcinoma ([id number], 04/12/2020). LesionC that was identified grossly represents predominantly fibrotic breastparenchyma with fibrocystic changes with no tumor identified. ER, PA andHER2 were repeated on the residual invasive ductal carcinoma (block A7).This report may include one or more immunohistochemical stain results thatuse analyte specific reagents. All positive and negative controls havebeen reviewed by the attending pathologist and are satisfactory. The testswere developed and their performance characteristics determined by [facility] Pathology department. They have not been cleared or approved by the USFood and Drug Administration. The FDA has determined that such clearanceor approval is not necessary. Name Value Range Interpretation Code Description Data Joyce rce(s) Supporting Document(s) ID Date Data Source [id number] 09/30/2020 01:50:00 PM EST REZA ([facility]) Name Value Range Interpretation Code Description Data Joyce rce(s) Supporting Document(s) white blood count 6.0 10 4.0-10.0 White Blood Count REZA ([facility]) red blood count 4.49 10 4.00-5.40 Red Blood Count ATHE NA ([facility]) hemoglobin 14.0 g/dL 12.0-15.5 Hemoglobin REZA ([facility]) hematocrit 42.8 % 36.0-47.0 Hematocrit REZA ([facility]) mean corpuscular volume 95.3 fL 80.0-96.0 Mean Corpusc ular Volume REZA ([facility]) mean corpuscular hemoglobin 31.2 pg 27.0-33.0 Mean Cor puscular Hemoglobin REZA ([facility]) mean corpuscular HGB conc 32.7 g/dL 32.0-36.5 Mean Corpu scular HGB Conc REZA ([facility]) red cell distribution width 14.5 % 11.5-14.5 Red Cell Distribution Width REZA ([facility]) platelet count, automated 300 10 150-450 Platelet C ount, Automated VENICE ([facility]) neutrophils % 66.6 % 36.0-66.0 Above high normal Neutrophils % A THENA ([facility]) lymph % 24.3 % 24.0-44.0 Lymph % REZA ([facility]) mono % 7.1 % 2.0-8.0 [place] % REZA ([facility]) eos % 0.8 % 0.0-3.0 Eos % REZA ([facility]) baso % 1.0 % 0.0-1.0 Baso % REZA ([facility]) immature granulocyte % 0.2 % 0-3.0 Immature Gran ulocyte % REZA ([facility]) nucleated red blood cell % 0.0 % 0-0 Nucleated Red Blood Cell % REZA ([facility]) neutrophils # 4.0 10 1.5-8.5 Neutrophils # REZA ( [facility]) eos # 0.1 10 0.0-0.5 Eos # REZA ([facility]) mono # 0.4 10 0.0-0.8 [place] # REZA ([facility]) lymph # 1.5 10 1.5-5.0 Lymph # REZA ([facility]) baso # 0.1 10 0.0-0.2 Baso # REZA ([facility]) ID Date Data Source [id number] 09/30/2020 01:50:00 PM EST REZA ([facility]) Name Value Range Interpretation Code Description Data Joyce rce(s) Supporting Document(s) red blood count 4.49 10 4.00-5.40 Red Blood Count ATHE ([facility]) white blood count 6.0 10 4.0-10.0 White Blood Count REZA ([facility]) hemoglobin 14.0 g/dL 12.0-15.5 Hemoglobin REZA ([facility]) hematocrit 42.8 % 36.0-47.0 Hematocrit REZA ([facility]) mean corpuscular hemoglobin 31.2 pg 27.0-33.0 Mean Cor puscular Hemoglobin REZA ([facility]) mean corpuscular HGB conc 32.7 g/dL 32.0-36.5 Mean Corpu scular HGB Conc REZA ([facility]) mean corpuscular volume 95.3 fL 80.0-96.0 Mean Corpusc ular Volume REZA ([facility]) platelet count, automated 300 10 150-450 Platelet C ount, Automated REZA ([facility]) red cell distribution width 14.5 % 11.5-14.5 Red Cell Distribution Width REZA ([facility]) lymph % 24.3 % 24.0-44.0 Lymph % REZA ([facility]) neutrophils % 66.6 % 36.0-66.0 Above high normal Neutrophils % A THENA ([facility]) baso % 1.0 % 0.0-1.0 Baso % REZA ([facility]) mono % 7.1 % 2.0-8.0 [place] % REZA ([facility]) eos % 0.8 % 0.0-3.0 Eos % REZA ([facility]) immature granulocyte % 0.2 % 0-3.0 Immature Gran ulocyte % REZA ([facility]) nucleated red blood cell % 0.0 % 0-0 Nucleated Red Blood Cell % REZA ([facility]) neutrophils # 4.0 10 1.5-8.5 Neutrophils # REZA ( [facility]) mono # 0.4 10 0.0-0.8 [place] # REZA ([facility]) lymph # 1.5 10 1.5-5.0 Lymph # REZA ([facility]) eos # 0.1 10 0.0-0.5 Eos # REZA ([facility]) baso # 0.1 10 0.0-0.2 Baso # REZA ([facility]) ID Date Data Source [id number] 09/30/2020 01:50:00 PM EST REZA ([facility]) Name Value Range Interpretation Code Description Data Joyce rce(s) Supporting Document(s) white blood count 6.0 10 4.0-10.0 White Blood Count REZA ([facility]) hematocrit 42.8 % 36.0-47.0 Hematocrit REZA ([facility]) red blood count 4.49 10 4.00-5.40 Red Blood Count ATHE NA ([facility]) hemoglobin 14.0 g/dL 12.0-15.5 Hemoglobin REZA ([facility]) mean corpuscular volume 95.3 fL 80.0-96.0 Mean Corpusc ular Volume ERZA ([facility]) mean corpuscular hemoglobin 31.2 pg 27.0-33.0 Mean Cor puscular Hemoglobin REZA ([facility]) mean corpuscular HGB conc 32.7 g/dL 32.0-36.5 Mean Corpu scular HGB Conc REZA ([facility]) lymph % 24.3 % 24.0-44.0 Lymph % REZA ([facility]) neutrophils % 66.6 % 36.0-66.0 Above high normal Neutrophils % A THENA ([facility]) red cell distribution width 14.5 % 11.5-14.5 Red Cell Distribution Width REZA ([facility]) platelet count, automated 300 10 150-450 Platelet C ount, Automated REZA ([facility]) eos % 0.8 % 0.0-3.0 Eos % REZA ([facility]) baso % 1.0 % 0.0-1.0 Baso % REZA ([facility]) mono % 7.1 % 2.0-8.0 [place] % VENICE ([facility]) nucleated red blood cell % 0.0 % 0-0 Nucleated Red Blood Cell % REZA ([facility]) lymph # 1.5 10 1.5-5.0 Lymph # REZA ([facility]) immature granulocyte % 0.2 % 0-3.0 Immature Gran ulocyte % REZA ([facility]) neutrophils # 4.0 10 1.5-8.5 Neutrophils # REZA ( [facility]) eos # 0.1 10 0.0-0.5 Eos # REZA ([facility]) mono # 0.4 10 0.0-0.8 [place] # REZA ([facility]) baso # 0.1 10 0.0-0.2 Baso # REZA ([facility]) ID Date Data Source [id number] 09/30/2020 01:50:00 PM EST REZA ([facility]) Name Value Range Interpretation Code Description Data Joyce rce(s) Supporting Document(s) red blood count 4.49 10 4.00-5.40 Red Blood Count ATHE NA ([facility]) white blood count 6.0 10 4.0-10.0 White Blood Count REZA ([facility]) hemoglobin 14.0 g/dL 12.0-15.5 Hemoglobin REZA ([facility]) mean corpuscular volume 95.3 fL 80.0-96.0 Mean Corpusc ular Volume REZA ([facility]) hematocrit 42.8 % 36.0-47.0 Hematocrit REZA ([facility]) mean corpuscular hemoglobin 31.2 pg 27.0-33.0 Mean Cor puscular Hemoglobin REZA ([facility]) mean corpuscular HGB conc 32.7 g/dL 32.0-36.5 Mean Corpu scular HGB Conc REZA ([facility]) red cell distribution width 14.5 % 11.5-14.5 Red Cell Distribution Width REZA ([facility]) platelet count, automated 300 10 150-450 Platelet C ount, Automated REZA ([facility]) neutrophils % 66.6 % 36.0-66.0 Above high normal Neutrophils % A THENA ([facility]) lymph % 24.3 % 24.0-44.0 Lymph % REZA ([facility]) mono % 7.1 % 2.0-8.0 [place] % REZA ([facility]) eos % 0.8 % 0.0-3.0 Eos % REZA ([facility]) baso % 1.0 % 0.0-1.0 Baso % VENICE ([facility]) immature granulocyte % 0.2 % 0-3.0 Immature Gran ulocyte % REZA ([facility]) nucleated red blood cell % 0.0 % 0-0 Nucleated Red Blood Cell % REZA ([facility]) neutrophils # 4.0 10 1.5-8.5 Neutrophils # REZA ( [facility]) lymph # 1.5 10 1.5-5.0 Lymph # REZA ([facility]) eos # 0.1 10 0.0-0.5 Eos # REZA ([facility]) baso # 0.1 10 0.0-0.2 Baso # REZA ([facility]) mono # 0.4 10 0.0-0.8 [place] # REZA ([facility]) ID Date Data Source [id number] 09/30/2020 01:50:00 PM EST REZA ([facility]) Name Value Range Interpretation Code Description Data Joyce rce(s) Supporting Document(s) white blood count 6.0 10 4.0-10.0 White Blood Count REZA ([facility]) red blood count 4.49 10 4.00-5.40 Red Blood Count ATHE NA ([facility]) hematocrit 42.8 % 36.0-47.0 Hematocrit REZA ([facility]) hemoglobin 14.0 g/dL 12.0-15.5 Hemoglobin REZA ([facility]) mean corpuscular volume 95.3 fL 80.0-96.0 Mean Corpusc ular Volume REZA ([facility]) mean corpuscular hemoglobin 31.2 pg 27.0-33.0 Mean Cor puscular Hemoglobin REZA ([facility]) mean corpuscular HGB conc 32.7 g/dL 32.0-36.5 Mean Corpu scular HGB Conc REZA ([facility]) red cell distribution width 14.5 % 11.5-14.5 Red Cell Distribution Width REZA ([facility]) platelet count, automated 300 10 150-450 Platelet C ount, Automated VENICE ([facility]) neutrophils % 66.6 % 36.0-66.0 Above high normal Neutrophils % A THENA ([facility]) lymph % 24.3 % 24.0-44.0 Lymph % REZA ([facility]) eos % 0.8 % 0.0-3.0 Eos % REZA ([facility]) mono % 7.1 % 2.0-8.0 [place] % REZA ([facility]) baso % 1.0 % 0.0-1.0 Baso % REZA ([facility]) nucleated red blood cell % 0.0 % 0-0 Nucleated Red Blood Cell % REZA ([facility]) immature granulocyte % 0.2 % 0-3.0 Immature Gran ulocyte % REZA ([facility]) mono # 0.4 10 0.0-0.8 [place] # REZA ([facility]) neutrophils # 4.0 10 1.5-8.5 Neutrophils # REZA ( [facility]) lymph # 1.5 10 1.5-5.0 Lymph # REZA ([facility]) baso # 0.1 10 0.0-0.2 Baso # REZA ([facility]) eos # 0.1 10 0.0-0.5 Eos # REZA ([facility]) ID Date Data Source [id number] 09/30/2020 01:50:00 PM EST REZA ([facility]) Name Value Range Interpretation Code Description Data Joyce rce(s) Supporting Document(s) white blood count 6.0 10 4.0-10.0 White Blood Count REZA ([facility]) red blood count 4.49 10 4.00-5.40 Red Blood Count ATHE NA ([facility]) hemoglobin 14.0 g/dL 12.0-15.5 Hemoglobin REZA ([facility]) mean corpuscular volume 95.3 fL 80.0-96.0 Mean Corpusc ular Volume REZA ([facility]) mean corpuscular hemoglobin 31.2 pg 27.0-33.0 Mean Cor puscular Hemoglobin REZA ([facility]) hematocrit 42.8 % 36.0-47.0 Hematocrit REZA ([facility]) mean corpuscular HGB conc 32.7 g/dL 32.0-36.5 Mean Corpu scular HGB Conc REZA ([facility]) platelet count, automated 300 10 150-450 Platelet C ount, Automated REZA ([facility]) red cell distribution width 14.5 % 11.5-14.5 Red Cell Distribution Width REZA ([facility]) neutrophils % 66.6 % 36.0-66.0 Above high normal Neutrophils % A THENA ([facility]) lymph % 24.3 % 24.0-44.0 Lymph % REZA ([facility]) mono % 7.1 % 2.0-8.0 [place] % REZA ([facility]) immature granulocyte % 0.2 % 0-3.0 Immature Gran ulocyte % REZA ([facility]) eos % 0.8 % 0.0-3.0 Eos % REZA ([facility]) baso % 1.0 % 0.0-1.0 Baso % REZA ([facility]) lymph # 1.5 10 1.5-5.0 Lymph # REZA ([facility]) neutrophils # 4.0 10 1.5-8.5 Neutrophils # REZA ( [facility]) nucleated red blood cell % 0.0 % 0-0 Nucleated Red Blood Cell % REZA ([facility]) eos # 0.1 10 0.0-0.5 Eos # REZA ([facility]) baso # 0.1 10 0.0-0.2 Baso # REZA ([facility]) mono # 0.4 10 0.0-0.8 [place] # REZA ([facility]) ID Date Data Source [id number] 09/30/2020 01:50:00 PM EST REZA ([facility]) Name Value Range Interpretation Code Description Data Joyce rce(s) Supporting Document(s) white blood count 6.0 10 4.0-10.0 White Blood Count REZA ([facility]) red blood count 4.49 10 4.00-5.40 Red Blood Count ATHE NA ([facility]) hematocrit 42.8 % 36.0-47.0 Hematocrit REZA ([facility]) hemoglobin 14.0 g/dL 12.0-15.5 Hemoglobin RZEA ([facility]) mean corpuscular hemoglobin 31.2 pg 27.0-33.0 Mean Cor puscular Hemoglobin REZA ([facility]) mean corpuscular volume 95.3 fL 80.0-96.0 Mean Corpusc ular Volume REZA ([facility]) mean corpuscular HGB conc 32.7 g/dL 32.0-36.5 Mean Corpu scular HGB Conc REZA ([facility]) platelet count, automated 300 10 150-450 Platelet C ount, Automated REZA ([facility]) neutrophils % 66.6 % 36.0-66.0 Above high normal Neutrophils % A THENA ([facility]) red cell distribution width 14.5 % 11.5-14.5 Red Cell Distribution Width REZA ([facility]) mono % 7.1 % 2.0-8.0 [place] % REZA ([facility]) lymph % 24.3 % 24.0-44.0 Lymph % REZA ([facility]) eos % 0.8 % 0.0-3.0 Eos % REZA ([facility]) baso % 1.0 % 0.0-1.0 Baso % VENICE ([facility]) neutrophils # 4.0 10 1.5-8.5 Neutrophils # VENICE ( [facility]) immature granulocyte % 0.2 % 0-3.0 Immature Gran ulocyte % REZA ([facility]) nucleated red blood cell % 0.0 % 0-0 Nucleated Red Blood Cell % REZA ([facility]) baso # 0.1 10 0.0-0.2 Baso # REZA ([facility]) eos # 0.1 10 0.0-0.5 Eos # REZA ([facility]) lymph # 1.5 10 1.5-5.0 Lymph # REZA ([facility]) mono # 0.4 10 0.0-0.8 [place] # REZA ([facility]) ID Date Data Source [id number] 09/30/2020 01:50:00 PM EST REZA ([facility]) Name Value Range Interpretation Code Description Data Joyce rce(s) Supporting Document(s) red blood count 4.49 10 4.00-5.40 Red Blood Count ATHE NA ([facility]) white blood count 6.0 10 4.0-10.0 White Blood Count REZA ([facility]) hematocrit 42.8 % 36.0-47.0 Hematocrit REZA ([facility]) mean corpuscular volume 95.3 fL 80.0-96.0 Mean Corpusc ular Volume REZA ([facility]) hemoglobin 14.0 g/dL 12.0-15.5 Hemoglobin REZA ([facility]) red cell distribution width 14.5 % 11.5-14.5 Red Cell Distribution Width REZA ([facility]) mean corpuscular hemoglobin 31.2 pg 27.0-33.0 Mean Cor puscular Hemoglobin REZA ([facility]) mean corpuscular HGB conc 32.7 g/dL 32.0-36.5 Mean Corpu scular HGB Conc REZA ([facility]) mono % 7.1 % 2.0-8.0 [place] % REZA ([facility]) lymph % 24.3 % 24.0-44.0 Lymph % VENICE ([facility]) neutrophils % 66.6 % 36.0-66.0 Above high normal Neutrophils % A THENA ([facility]) platelet count, automated 300 10 150-450 Platelet C ount, Automated VENICE ([facility]) immature granulocyte % 0.2 % 0-3.0 Immature Gran ulocyte % REZA ([facility]) eos % 0.8 % 0.0-3.0 Eos % REZA ([facility]) baso % 1.0 % 0.0-1.0 Baso % REZA ([facility]) lymph # 1.5 10 1.5-5.0 Lymph # REZA ([facility]) neutrophils # 4.0 10 1.5-8.5 Neutrophils # REZA ( [facility]) nucleated red blood cell % 0.0 % 0-0 Nucleated Red Blood Cell % REZA ([facility]) eos # 0.1 10 0.0-0.5 Eos # REZA ([facility]) mono # 0.4 10 0.0-0.8 [place] # REZA ([facility]) baso # 0.1 10 0.0-0.2 Baso # REZA ([facility]) ID Date Data Source [id number] 09/30/2020 01:43:00 PM EST REZA ([facility]) Name Value Range Interpretation Code Description Data Joyce rce(s) Supporting Document(s) bilirubin Bilirubin REZA ([facility]) blood Blood REZA ([facility]) glucose Glucose REZA ([facility]) leukocytes Leukocytes REZA ([facility]) ketone Ketone REZA ([facility]) pH Ph REZA ([facility]) nitrite Nitrite REZA ([facility]) specific gravity Specific [place] AT [facility] ([facility]) protein Protein REZA ([facility]) urobilinogen Urobilinogen REZA ([facility]) ID Date Data Source [id number] 09/30/2020 01:43:00 PM EST REZA ([facility]) Name Value Range Interpretation Code Description Data Joyce rce(s) Supporting Document(s) bilirubin Bilirubin REZA ([facility]) blood Blood REZA ([facility]) glucose Glucose REZA ([facility]) ketone Ketone REZA ([facility]) nitrite Nitrite REZA ([facility]) leukocytes Leukocytes REZA ([facility]) pH Ph REZA ([facility]) protein Protein REZA ([facility]) urobilinogen Urobilinogen REZA ([facility]) specific gravity Specific [place] ([facility]) ID Date Data Source [id number] 09/30/2020 01:43:00 PM EST REZA ([facility]) Name Value Range Interpretation Code Description Data Joyce rce(s) Supporting Document(s) bilirubin Bilirubin REZA ([facility]) blood Blood REZA ([facility]) glucose Glucose REZA ([facility]) nitrite Nitrite REZA ([facility]) leukocytes Leukocytes REZA ([facility]) pH Ph REZA ([facility]) ketone Ketone REZA ([facility]) specific gravity Specific [place] ([facility]) protein Protein REZA ([facility]) urobilinogen Urobilinogen REZA ([facility]) ID Date Data Source [id number] 09/30/2020 01:43:00 PM EST REZA ([facility]) Name Value Range Interpretation Code Description Data Joyce rce(s) Supporting Document(s) blood Blood REZA ([facility]) bilirubin Bilirubin REZA ([facility]) glucose Glucose REZA ([facility]) leukocytes Leukocytes REZA ([facility]) nitrite Nitrite REZA ([facility]) ketone Ketone REZA ([facility]) protein Protein REZA ([facility]) specific gravity Specific [place] ([facility]) urobilinogen Urobilinogen REZA ([facility]) pH Ph REZA ([facility]) ID Date Data Source [id number] 09/30/2020 01:43:00 PM EST REZA ([facility]) Name Value Range Interpretation Code Description Data Joyce rce(s) Supporting Document(s) bilirubin Bilirubin REZA ([facility]) ketone Ketone REZA ([facility]) glucose Glucose REZA ([facility]) blood Blood REZA ([facility]) leukocytes Leukocytes REZA ([facility]) pH Ph REZA ([facility]) nitrite Nitrite REZA ([facility]) protein Protein REZA ([facility]) urobilinogen Urobilinogen REZA ([facility]) specific gravity Specific [place] ([facility]) ID Date Data Source [id number] 09/30/2020 01:43:00 PM EST REZA ([facility]) Name Value Range Interpretation Code Description Data Joyce rce(s) Supporting Document(s) bilirubin Bilirubin REZA ([facility]) blood Blood REZA ([facility]) glucose Glucose REZA ([facility]) ketone Ketone REZA ([facility]) pH Ph REZA ([facility]) leukocytes Leukocytes REZA ([facility]) nitrite Nitrite REZA ([facility]) protein Protein REZA ([facility]) specific gravity Specific [place] ([facility]) urobilinogen Urobilinogen REZA ([facility]) ID Date Data Source [id number] 09/30/2020 01:43:00 PM EST REZA ([facility]) Name Value Range Interpretation Code Description Data Joyce rce(s) Supporting Document(s) bilirubin Bilirubin REZA ([facility]) blood Blood REZA ([facility]) nitrite Nitrite REZA ([facility]) ketone Ketone REZA ([facility]) leukocytes Leukocytes REZA ([facility]) glucose Glucose REZA ([facility]) protein Protein REZA ([facility]) pH Ph REZA ([facility]) urobilinogen Urobilinogen REZA ([facility]) specific gravity Specific [place] ([facility]) ID Date Data Source [id number] 09/30/2020 01:43:00 PM EST REZA ([facility]) Name Value Range Interpretation Code Description Data Joyce rce(s) Supporting Document(s) bilirubin Bilirubin REZA ([facility]) glucose Glucose REZA ([facility]) blood Blood REZA ([facility]) leukocytes Leukocytes REZA ([facility]) ketone Ketone REZA ([facility]) specific gravity Specific [place] ([facility]) nitrite Nitrite REZA ([facility]) protein Protein REZA ([facility]) pH Ph REZA ([facility]) urobilinogen Urobilinogen REZA ([facility]) ID Date Data Source [id number] 09/30/2020 01:43:00 PM EST REZA ([facility]) Name Value Range Interpretation Code Description Data Joyce rce(s) Supporting Document(s) bilirubin Bilirubin REZA ([facility]) leukocytes Leukocytes REZA ([facility]) glucose Glucose REZA ([facility]) blood Blood REZA ([facility]) ketone Ketone REZA ([facility]) nitrite Nitrite REZA ([facility]) pH Ph REZA ([facility]) protein Protein REZA ([facility]) specific gravity Specific [place] ([facility]) urobilinogen Urobilinogen REZA ([facility]) ID Date Data Source [id number] 09/30/2020 01:15:00 PM EST REZA ([facility]) Name Value Range Interpretation Code Description Data Joyce rce(s) Supporting Document(s) appearance, urine cloudy clear Above high normal Appearance, Urine REZA ([facility]) pH,urine 8.0 units 5.0-9.0 pH,urine REZA ([facility]) color, urine yellow yellow Color, Urine REZA ([facility]) specific gravity urine auto 1.002-1.035 Specifi c [place] Urine Auto REZA ([facility]) protein, urine auto negative negative Protein, Urine A uto REZA ([facility]) glucose, urine (UA) auto negative negative Glucose, Ur ine (UA) Auto VENICE ([facility]) ketone, urine auto negative negative Ketone, Urine Aut o [place]EN[place] ([facility]) urobilinogen, urine auto 0.2 mg/dL 0.0-2.0 Urobilinoge n, Urine Auto REZA ([facility]) bilirubin, urine auto negative negative Bilirubin, Uri ne Auto REZA ([facility]) leukocyte esterase, urine auto negative negative Leukocyte Esterase, Urine Auto REZA ([facility]) nitrite, urine auto negative negative Nitrite, Urine A uto REZA ([facility]) RBC, urine auto 0 /hpf 0-3 RBC, Urine Auto ATHE NA ([facility]) blood, urine blood negative negative Blood, Urine Bloo d REZA ([facility]) WBC, urine auto 1 /hpf 0-3 WBC, Urine Auto ATHE NA ([facility]) squamous epithelial cell ur AU 0 /hpf 0-6 Squam ous Epithelial Cell Ur AU REZA ([facility]) bacteria, urine auto negative negative Bacteria, Urine Auto REZA ([facility]) hyaline cast, urine auto 0 /lpf 0-1 Hyaline Reji t, Urine Auto REZA ([facility]) mucus, urine small negative Mucus, Urine REZA ([facility]) amorphous sediment moderate negative Above high normal Amorphous Sediment REZA ([facility]) ID Date Data Source [id number] 09/30/2020 01:15:00 PM EST REZA ([facility]) Name Value Range Interpretation Code Description Data Joyce rce(s) Supporting Document(s) color, urine yellow yellow Color, Urine REZA ([facility]) appearance, urine cloudy clear Above high normal Appearance, Urine REZA ([facility]) pH,urine 8.0 units 5.0-9.0 pH,urine REZA ([facility]) specific gravity urine auto 1.002-1.035 Specifi c [place] Urine Auto REZA ([facility]) protein, urine auto negative negative Protein, Urine A uto REZA ([facility]) glucose, urine (UA) auto negative negative Glucose, Ur ine (UA) Auto REZA ([facility]) urobilinogen, urine auto 0.2 mg/dL 0.0-2.0 Urobilinoge n, Urine Auto REZA ([facility]) ketone, urine auto negative negative Ketone, Urine Aut o REZA ([facility]) leukocyte esterase, urine auto negative negative Leukocyte Esterase, Urine Auto REZA ([facility]) nitrite, urine auto negative negative Nitrite, Urine A uto REZA ([facility]) bilirubin, urine auto negative negative Bilirubin, Uri ne Auto REZA ([facility]) RBC, urine auto 0 /hpf 0-3 RBC, Urine Auto ATHE NA ([facility]) WBC, urine auto 1 /hpf 0-3 WBC, Urine Auto ATHE NA ([facility]) blood, urine blood negative negative Blood, Urine Bloo d REZA ([facility]) bacteria, urine auto negative negative Bacteria, Urine Auto REZA ([facility]) mucus, urine small negative Mucus, Urine REZA ([facility]) squamous epithelial cell ur AU 0 /hpf 0-6 Squam ous Epithelial Cell Ur AU REZA ([facility]) amorphous sediment moderate negative Above high normal Amorphous Sediment REZA ([facility]) hyaline cast, urine auto 0 /lpf 0-1 Hyaline Reji t, Urine Auto REZA ([facility]) ID Date Data Source [id number] 09/30/2020 01:15:00 PM EST REZA ([facility]) Name Value Range Interpretation Code Description Data Joyce rce(s) Supporting Document(s) appearance, urine cloudy clear Above high normal Appearance, Urine REZA ([facility]) color, urine yellow yellow Color, Urine REZA ([facility]) pH,urine 8.0 units 5.0-9.0 pH,urine REZA ([facility]) protein, urine auto negative negative Protein, Urine A uto REZA ([facility]) specific gravity urine auto 1.002-1.035 Specifi c [place] Urine Auto REZA ([facility]) bilirubin, urine auto negative negative Bilirubin, Uri ne Auto REZA ([facility]) urobilinogen, urine auto 0.2 mg/dL 0.0-2.0 Urobilinoge n, Urine Auto REZA ([facility]) ketone, urine auto negative negative Ketone, Urine Aut o REZA ([facility]) glucose, urine (UA) auto negative negative Glucose, Ur ine (UA) Auto REZA ([facility]) WBC, urine auto 1 /hpf 0-3 WBC, Urine Auto ATHE NA ([facility]) leukocyte esterase, urine auto negative negative Leukocyte Esterase, Urine Auto REZA ([facility]) blood, urine blood negative negative Blood, Urine Bloo d REZA ([facility]) nitrite, urine auto negative negative Nitrite, Urine A uto REZA ([facility]) RBC, urine auto 0 /hpf 0-3 RBC, Urine Auto ATHE NA ([facility]) bacteria, urine auto negative negative Bacteria, Urine Auto REZA ([facility]) squamous epithelial cell ur AU 0 /hpf 0-6 Squam ous Epithelial Cell Ur AU REZA ([facility]) amorphous sediment moderate negative Above high normal Amorphous Sediment REZA ([facility]) mucus, urine small negative Mucus, Urine REZA (No [facility]) hyaline cast, urine auto 0 /lpf 0-1 Hyaline Reji t, Urine Auto REZA ([facility]) ID Date Data Source [id number] 09/30/2020 01:15:00 PM EST REZA ([facility]) Name Value Range Interpretation Code Description Data Joyce rce(s) Supporting Document(s) appearance, urine cloudy clear Above high normal Appearance, Urine REZA ([facility]) pH,urine 8.0 units 5.0-9.0 pH,urine REZA ([facility]) color, urine yellow yellow Color, Urine REZA ([facility]) protein, urine auto negative negative Protein, Urine A uto REZA ([facility]) glucose, urine (UA) auto negative negative Glucose, Ur ine (UA) Auto REZA ([facility]) specific gravity urine auto 1.002-1.035 Specifi c [place] Urine Auto REZA ([facility]) ketone, urine auto negative negative Ketone, Urine Aut o REZA ([facility]) urobilinogen, urine auto 0.2 mg/dL 0.0-2.0 Urobilinoge n, Urine Auto REZA ([facility]) nitrite, urine auto negative negative Nitrite, Urine A uto REZA ([facility]) bilirubin, urine auto negative negative Bilirubin, Uri ne Auto REZA ([facility]) leukocyte esterase, urine auto negative negative Leukocyte Esterase, Urine Auto REZA ([facility]) blood, urine blood negative negative Blood, Urine Bloo d REZA ([facility]) WBC, urine auto 1 /hpf 0-3 WBC, Urine Auto ATHE NA ([facility]) RBC, urine auto 0 /hpf 0-3 RBC, Urine Auto ATHE NA ([facility]) mucus, urine small negative Mucus, Urine REZA ([facility]) bacteria, urine auto negative negative Bacteria, Urine Auto REZA ([facility]) squamous epithelial cell ur AU 0 /hpf 0-6 Squam ous Epithelial Cell Ur AU REZA ([facility]) hyaline cast, urine auto 0 /lpf 0-1 Hyaline Reji t, Urine Auto REZA ([facility]) amorphous sediment moderate negative Above high normal Amorphous Sediment REZA ([facility]) ID Date Data Source [id number] 09/30/2020 01:15:00 PM EST REZA ([facility]) Name Value Range Interpretation Code Description Data Joyce rce(s) Supporting Document(s) appearance, urine cloudy clear Above high normal Appearance, Urine REZA ([facility]) color, urine yellow yellow Color, Urine REZA ([facility]) pH,urine 8.0 units 5.0-9.0 pH,urine REZA ([facility]) specific gravity urine auto 1.002-1.035 Specifi c [place] Urine Auto REZA ([facility]) glucose, urine (UA) auto negative negative Glucose, Ur ine (UA) Auto REZA ([facility]) protein, urine auto negative negative Protein, Urine A uto REZA ([facility]) ketone, urine auto negative negative Ketone, Urine Aut o REZA ([facility]) urobilinogen, urine auto 0.2 mg/dL 0.0-2.0 Urobilinoge n, Urine Auto REZA ([facility]) bilirubin, urine auto negative negative Bilirubin, Uri ne Auto REZA ([facility]) nitrite, urine auto negative negative Nitrite, Urine A uto REZA ([facility]) blood, urine blood negative negative Blood, Urine Bloo d REZA ([facility]) leukocyte esterase, urine auto negative negative Leukocyte Esterase, Urine Auto REZA ([facility]) WBC, urine auto 1 /hpf 0-3 WBC, Urine Auto ATHE NA ([facility]) RBC, urine auto 0 /hpf 0-3 RBC, Urine Auto ATHE NA ([facility]) bacteria, urine auto negative negative Bacteria, Urine Auto REZA ([facility]) amorphous sediment moderate negative Above high normal Amorphous Sediment REZA ([facility]) squamous epithelial cell ur AU 0 /hpf 0-6 Squam ous Epithelial Cell Ur AU REZA ([facility]) hyaline cast, urine auto 0 /lpf 0-1 Hyaline Reji t, Urine Auto REZA ([facility]) mucus, urine small negative Mucus, Urine REZA (No [facility]) ID Date Data Source [id number] 09/30/2020 01:15:00 PM EST REZA ([facility]) Name Value Range Interpretation Code Description Data Joyce rce(s) Supporting Document(s) appearance, urine cloudy clear Above high normal Appearance, Urine REZA ([facility]) color, urine yellow yellow Color, Urine REZA ([facility]) pH,urine 8.0 units 5.0-9.0 pH,urine REZA ([facility]) specific gravity urine auto 1.002-1.035 Specifi c [place] Urine Auto REZA ([facility]) protein, urine auto negative negative Protein, Urine A uto REZA ([facility]) ketone, urine auto negative negative Ketone, Urine Aut o REZA ([facility]) glucose, urine (UA) auto negative negative Glucose, Ur ine (UA) Auto REZA ([facility]) bilirubin, urine auto negative negative Bilirubin, Uri ne Auto REZA ([facility]) nitrite, urine auto negative negative Nitrite, Urine A uto REZA ([facility]) urobilinogen, urine auto 0.2 mg/dL 0.0-2.0 Urobilinoge n, Urine Auto REZA ([facility]) blood, urine blood negative negative Blood, Urine Bloo d REZA ([facility]) leukocyte esterase, urine auto negative negative Leukocyte Esterase, Urine Auto REZA ([facility]) WBC, urine auto 1 /hpf 0-3 WBC, Urine Auto ATHE NA ([facility]) RBC, urine auto 0 /hpf 0-3 RBC, Urine Auto ATHE NA ([facility]) mucus, urine small negative Mucus, Urine REZA ([facility]) bacteria, urine auto negative negative Bacteria, Urine Auto REZA ([facility]) squamous epithelial cell ur AU 0 /hpf 0-6 Squam ous Epithelial Cell Ur AU REZA ([facility]) hyaline cast, urine auto 0 /lpf 0-1 Hyaline Reji t, Urine Auto REZA ([facility]) amorphous sediment moderate negative Above high normal Amorphous Sediment REZA ([facility]) ID Date Data Source [id number] 09/30/2020 01:15:00 PM EST REZA ([facility]) Name Value Range Interpretation Code Description Data Joyce rce(s) Supporting Document(s) pH,urine 8.0 units 5.0-9.0 pH,urine REZA ([facility]) color, urine yellow yellow Color, Urine REZA (No [facility]) appearance, urine cloudy clear Above high normal Appearance, Urine REZA ([facility]) specific gravity urine auto 1.002-1.035 Specifi c [place] Urine Auto REZA ([facility]) protein, urine auto negative negative Protein, Urine A uto REZA ([facility]) glucose, urine (UA) auto negative negative Glucose, Ur ine (UA) Auto REZA ([facility]) ketone, urine auto negative negative Ketone, Urine Aut o REZA ([facility]) nitrite, urine auto negative negative Nitrite, Urine A uto REZA ([facility]) bilirubin, urine auto negative negative Bilirubin, Uri ne Auto REZA ([facility]) urobilinogen, urine auto 0.2 mg/dL 0.0-2.0 Urobilinoge n, Urine Auto REZA ([facility]) blood, urine blood negative negative Blood, Urine Bloo d REZA ([facility]) RBC, urine auto 0 /hpf 0-3 RBC, Urine Auto ATHE NA ([facility]) WBC, urine auto 1 /hpf 0-3 WBC, Urine Auto ATHE NA ([facility]) leukocyte esterase, urine auto negative negative Leukocyte Esterase, Urine Auto REZA ([facility]) squamous epithelial cell ur AU 0 /hpf 0-6 Squam ous Epithelial Cell Ur AU REZA ([facility]) bacteria, urine auto negative negative Bacteria, Urine Auto REZA ([facility]) mucus, urine small negative Mucus, Urine REZA ([facility]) amorphous sediment moderate negative Above high normal Amorphous Sediment REZA ([facility]) hyaline cast, urine auto 0 /lpf 0-1 Hyaline Reji t, Urine Auto REZA ([facility]) ID Date Data Source [id number] 09/30/2020 01:15:00 PM EST REZA ([facility]) Name Value Range Interpretation Code Description Data Joyce rce(s) Supporting Document(s) appearance, urine cloudy clear Above high normal Appearance, Urine REZA ([facility]) pH,urine 8.0 units 5.0-9.0 pH,urine REZA ([facility]) color, urine yellow yellow Color, Urine REZA ([facility]) protein, urine auto negative negative Protein, Urine A uto REZA ([facility]) ketone, urine auto negative negative Ketone, Urine Aut o REZA ([facility]) glucose, urine (UA) auto negative negative Glucose, Ur ine (UA) Auto REZA ([facility]) specific gravity urine auto 1.002-1.035 Specifi c [place] Urine Auto REZA ([facility]) bilirubin, urine auto negative negative Bilirubin, Uri ne Auto REZA ([facility]) urobilinogen, urine auto 0.2 mg/dL 0.0-2.0 Urobilinoge n, Urine Auto REZA ([facility]) nitrite, urine auto negative negative Nitrite, Urine A uto REZA ([facility]) leukocyte esterase, urine auto negative negative Leukocyte Esterase, Urine Auto REZA ([facility]) WBC, urine auto 1 /hpf 0-3 WBC, Urine Auto ATHE NA ([facility]) RBC, urine auto 0 /hpf 0-3 RBC, Urine Auto ATHE NA ([facility]) blood, urine blood negative negative Blood, Urine Bloo d REZA ([facility]) bacteria, urine auto negative negative Bacteria, Urine Auto REZA ([facility]) hyaline cast, urine auto 0 /lpf 0-1 Hyaline Reji t, Urine Auto REZA ([facility]) mucus, urine small negative Mucus, [facility] squamous epithelial cell ur AU 0 /hpf 0-6 Squam ous Epithelial Cell Ur AU REZA ([facility]) amorphous sediment moderate negative Above high normal Amorphous Sediment REZA ([facility]) ID Date Data Source [id number] 09/27/2020 09:30:00 AM [facility] Name Value Range Interpretation Code Description Data Joyce rce(s) Supporting Document(s) SARS coronavirus 2 RdRp gene Test performed using the [employer] ID NOW COVID-19 assay. This test is only for use under the Food and Drug Administration's Emergency Use Authorization. Additional information is available on the followin FDA websites for health care providers and patients. [place] This lab was ordered by [facility] and reported by [facility]. ID Date Data Source [id number] 09/27/2020 09:41:20 AM [facility] Name Value Range Interpretation Code Description Data Joyce rce(s) Supporting Document(s) SARS coronavirus 2 RdRp gene Negative [facility] Test performed using the [employer] ID NOW C OVID-19 assay. This test is only for use under the Food and Drug Administration's Emergency Use Authorization. 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 [facility] Patient has symptoms related to condition [facility] When did you start to experience these symptoms [Date and time] [Phen X] [facility] Patient was hospitalized because of this condition [facility] patient was admitted to ICU for [facility] Patient resides in a congregate care setting [facility] status [facility] ID Date Data Source [id number] 09/27/2020 09:02:52 AM EST [facility] Name Value Range Interpretation Code Description Data Joyce rce(s) Supporting Document(s) Progress Note [facility] [id number] lbm [file] [id number] ID Date Data Source [id number] 09/26/2020 10:24:18 PM [facility] CT THORAX WITH CONTRAST [id number] RESUL TInterpreted by:Emigdio D Mariposa, MDPROCEDURE INFORMATION: Exam: CT Chest With Contrast; Diagnostic Exam date and time: 09/16/2020 5:26 PM Age: 49 years old Clinical indication: Malignant neoplasm of unspecified site of left female breast; Other nonspecific abnormal finding of lung field; Estrogen receptor positive status (er+); Condition or disease; Other: Breast CA; Follow-up oncological assessment; Additional info: Breast cancer, restaging scan to evaluate for metastatic disease/response to treatment TECHNIQUE: Imaging protocol: Diagnostic computed tomography of the chest with contrast. Radiation optimization: All CT scans at this facility use at least one of these dose optimization techniques: automated exposure control; mA and/or kV adjustment per patient size (includes targeted exams where dose is matched to clinical indication); or iterative reconstruction. Contrast material: OMNI 300; Contrast volume: 100 ml; Contrast route: INTRAVENOUS (IV); COMPARISON: PT PET/CT Skull/mid thigh 05/06/2020 1:10 PM FINDINGS: Lungs: Stable 9 mm nodule left lower lobe lateral segment. Stable 4 mm nodule lateral segment left lower lobe. Stable 3 mm nodule right lower lobe lateral segment. No specific follow-up per Fleischner guidelines given patient history. Pleural spaces: Bilateral areas of pleural nodularity are indeterminate. Heart: Unremarkable. No cardiomegaly. No pericardial effusion. Aorta: Unremarkable. No aortic aneurysm. Lymph nodes: Unremarkable. No enlarged lymph nodes. Bones/joints: 7 mm sclerotic lesion left head of the clavicle, concern for osseous metastasis. Soft tissues: Unremarkable. IMPRESSION: 1. Bilateral areas of pleural nodularity are indeterminate. 2. Stable 9 mm nodule left lower lobe lateral segment. 3. Stable 4 mm nodule lateral segment left lower lobe. 4. Stable 3 mm nodule right lower lobe lateral segment. 5. 7 mm sclerotic lesion left head of the clavicle, concern for osseous metastasis. THIS DOCUMENT HAS BEEN ELECTRONICALLY SIGNED BY EMIGDIO HADDAD MDThis document has been electronically signed by Emigdio Haddad MD on 09/26/2020 10:24 PM Name Value Range Interpretation Code Description Data Joyce rce(s) Supporting Document(s) ID Date Data Source [id number] 09/25/2020 10:17:45 PM [facility] Name Value Range Interpretation Code Description Data Joyce rce(s) Supporting Document(s) Progress Note [facility] [id number]/PKQkoXMEag9MgJFjwMMk5TUloEMUqF0VfKDZ5zU0zELI4XAoQPsAmTxDxKdU5 lbm [file] qewxEeyx7/group home+5tZGVND69Zfl6+agC5Uf3QFguqyu0NlPGGojaRs7YXlWpZerf/roxQYm6axBepMJod kjE+l2+fij3/qXZBwqSVQRm2fThK5iopamwn2iOVuS SSxl8EPn3+saQBTF6cNr0OvYqhorKAcJBS5zsXjbU0kIZE8sXfmfaBa429CFaKGpoRO42hzII3/QxWTw 5yTj/Eyy7A9F60KMK2/Qqh0jibgQ1Q0UWqD4OdDc50MrnZsFS53Rr+nGq8j9+uiNyLKQFP73kNI394W+ kG6agnppij6JgcuNg5GSFmX5dwfpz/oMmaxqsu0/d9 [file] Ren9MRVALtiaUeHLep6u6UVXrbFG2/BUdNzChavbDr3c9uiZBS3VvG+Um9rsURz5wEcxOvv4N1/materials intern/c [file] ICAgICAgICAgICAgICAgICAgICAgICAgICAgICAgIC AgICAgICAgICAgICAgICAgICAgICAgICAgICAgICAgICAgICAgICAgICANCiAgICAgICAgICAgICAgIC AgICAgICAgICAgICAgICAgICAgICAgICAgICAgICAgICAgICAgICAgICAgICAgICAgICAgICAgICAgIC AgICAgICAgICAgICAgICAgICAgICAgICANCiAgICAg ICAgICAgICAgICAgICAgICAgICAgICAgICAgICAgICAgICAgICAgICAgICAgICAgICAgICAgICAgICAg ICAgICAgICAgICAgICAgICAgICAgICAgICAgICAgICAgICANCiAgICAgICAgICAgICAgICAgICAgICAg ICAgICAgICAgICAgICAgICAgICAgICAgICAgICAgIC AgICAgICAgICAgICAgICAgICAgICAgICAgICAgICAgICAgICAgICAgICAgICANCiAgICAgICAgICAgIC AgICAgICAgICAgICAgICAgICAgICAgICAgICAgICAgICAgICAgICAgICAgICAgICAgICAgICAgICAgIC AgICAgICAgICAgICAgICAgICAgICAgICAgICANCiAg ICAgICAgICAgICAgICAgICAgICAgICAgICAgICAgICAgICAgICAgICAgICAgICAgICAgICAgICAgICAg ICAgICAgICAgICAgICAgICAgICAgICAgICAgICAgICAgICAgICANCiAgICAgICAgICAgICAgICAgICAg ICAgICAgICAgICAgICAgICAgICAgICAgICAgICAgIC AgICAgICAgICAgICAgICAgICAgICAgICAgICAgICAgICAgICAgICAgICAgICAgICANCiAgICAgICAgIC AgICAgICAgICAgICAgICAgICAgICAgICAgICAgICAgICAgICAgICAgICAgICAgICAgICAgICAgICAgIC AgICAgICAgICAgICAgICAgICAgICAgICAgICAgICAN CiAgICAgICAgICAgICAgICAgICAgICAgICAgICAgICAgICAgICAgICAgICAgICAgICAgICAgICAgICAg ICAgICAgICAgICAgICAgICAgICAgICAgICAgICAgICAgICAgICAgICANCiAgICAgICAgICAgICAgICAg ICAgICAgICAgICAgICAgICAgICAgICAgICAgICAgIC AgICAgICAgICAgICAgICAgICAgICAgICAgICAgICAgICAgICAgICAgICAgICAgICAgICANCjw/eHBhY2 rmkRSrjaF4A9zfZy6HUv8XRV6lv6LjUVHzZEpbdkSdOoiZCgAtSXIeMuzXYdm0JEkwSD4FyELoW7AhM4 XlICsgDT5NIQTuHSUbmYJhCOGiDLFnLtE3UYWiAQqe QJ6MlMUjASdeUKSaXDKvGjIbHPZiCYLkTQOgKSEgKVUFEOOmYGTxJuUtXSZmQEVzGVkySWBMGFV9NZWp DfXwOONbZNSqHT4EYWKlM366zpZvOF4KFg5JIdDxMG9psk4IPQTiZQQjIauIEio8IKclIR3YfPUurTE6 AdUtUAGYSoOlB7ldi0NtJHhmURRQUChwMV8Ww8HfzE AxDQo+Gj1IGG6mh4OnNEg5AqVjYB8cpt4JIJqKYwCzY3TmeUwqXFHpo8mmFQZgJM2gvUYbPOP4NBJvrt ioWFOAlIXiyGMvHB4EMXR2WMJgWVTyZpQfMGMeBZcgOYIPLWgOSsWmP6Hrh5WrElS5VQCoWfYtMBwvFV LwEkC1MO05iConCQ1OYWRxZMKiVT46ALV3UUZdCi9I Jq2OFxAoXV8chs4GVVdtBDEaMhkKClr1YTxyWG9XeROqZ4XybMYzf4cVYtYzH6GMYNC7QYBqEj7SBBKe GjIhXCJfWWotIV6fAQTrSZPEhQfmkiY8AQ6TIX6elfTxQY4DNuZqTm7aIz4YYtXzM6DoR0GlWVChTVZS IRnxVD5KTTjdUP6lBS4Kc5SKjRJpyW8ark6EZKEqNH CiYwajyq8HHyqiH1Y9uSilRUKaDXFeQRBNYDbhPV4ECKSjLQG6RJW9ZVIsDXAKLdMaW77cWG4BI2Ifs2 0yAzF6KGAlGpQjYEkjOR57kAwwexHrkPWlxDqjOR3WLr0+DQplbmRvYmoNCnhyZWYNCjAgNDkNCjAwMD YuFRJnEHEqXdB3VyMrDq0MJPXfDNChUEHdRaQePZSf FDMzIXqfXNYbZVoxZJJ0PDTaSTCjOE6VPoQaRLOgWAP9QdAnEWBkFBYcou6ORLLsZDMqEXC8XxMjFZTc BSJfHAajPLVcARJ8XuKhXMVyQAUtHE0IWhIuPZFlQCZ9NnEiUAZmPAObtt3XTGCrIJWeXGFxSnDoXUMv ESOmTKioMFLvAOQlIWJwCBUqGNOtZC3JRhEqUYVnMS PyPbCbRIFbPEDztr5JFUImZOIbCMS5FkUzFKMeKFQkKHydWGPnMRR1FOluFUMoYQFtFH6CDpAzEUBmZE D4CdokSUZsOXBatx0KOTZwVCFiGWpiDFNvLCBaCDMxTYvlTDVfIKFgYZH3MBHkJAXeFY6DInUhVDSuAr D5AYQbSTOiMZWsbg2WNWOcWEXeYnLaKJXhMZSrSMMz FTljATOhGWG5ZMXtHMYfPYStZT5YBbWbDEVeMvp0RxjrMWVyQJKyko5FQORcJGWiAzQjGIXzEYTtHZIs ZJudLIRgSLXmIpT3HEOfTWKmAQ7YZzPwSVVsNiUlDaEhXFLuZISogf6GODZuOKWkOqZfNOYpSWQmTZLa NKitUPWpAXO2MLfdZBMoMWGvFA4RWkYwJSQyAhugQZ gaMBKzRPZtdd4IXAZiIUGvMlU9RUFmOQKyCXQrBHhgGMRkDYJ1UCF2WQSjPIUrXV1OMpMiDIQsAvv6Lg GiTPMmEQTwpp4MKWRdHDAeNAvrZOZpCBXbDXQoXOuyYESvSQFoOxA1SPXvHPQsFO3MBpBxJSEmUTC5Cg SjFCTsGYUnzr1WWXWaOUK2IYn9KzMzVDAxGQSgXYlv AVBoXCUuZMWgEYWqUUOwAE9WTyIgCCRtHRNuZgesJBPvOFTuhi0UROKrQZB3NmCfPuXvFFJfGAClVIeg NECxRQSxNOP2OTAjWAOzBC0PKsMkXZYjRQT9XqDpLMYmMADhtm5CULXnVAG9YYa7MoGbCDHaQUQjZFad IJUuSCf2YuSsBHYpZKDqPH1PDyTpRKKjIdw8YfBkRU EpQDAwme8QNMFdGCD7AXVpJEFdDSJiCVEaPMpzBIVuYTdgOwn2NFRdDXKcVN9IGdYvEEQrVRH8BcThZO MpVQVmcb6FQNJmLKC8OFfnFXKsBLWdDFFyKJreSOWuGPfpAVf8TZHkZJYcED0BRsUzMGGcGLG2KnBxNE EzQTVsmi3EZJEcOLU1LCMqXzScRILzSCOrJFxmDQBq JEo8HIh1SCBzBOCeTA8TCdEaQNXkIMGmZXHvGWSpASLzno8LsWHqpFysnw5MBJlKPd3CsWexZVN1OBjj Up3poEO1VWQoWLKFSx1MfuLpCROjVOQJUOjqPFKhNYwgOWFiThG3VMCtCEN6IuQsJTX7MhykXhbfWUZj E5E1IlB4FmDkQTS6YZq7KDZhNedqVNF1OuUiUpQjFR MiD0RwJAO+OG3uUNk+Wu9Fk8ZlbnD6soHsSTt4KLI6ES4CZDWMK9YIEh== ID Date Data Source [id number] 09/23/2020 01:00:00 PM EST [facility] ([facility]) Name Value Range Interpretation Code Description Data Joyce rce(s) Supporting Document(s) thyroid stimulating hormone 7.930 uIU/mL 0.358-3.740 Above high no rmal Thyroid Stimulating Hormone [facility] ([facility]) ID Date Data Source [id number] 09/23/2020 01:00:00 PM EST [facility] ([facility]) Name Value Range Interpretation Code Description Data Joyce rce(s) Supporting Document(s) glucose, fasting 80 mg/dL 70-100 Glucose, Fasting AT [facility]) glomerular filtration rate > 60.0 >58 Glomerula r Filtration Rate [facility] ([facility]) sodium level 141 mEq/L 136-145 Sodium Level [facility] ([facility]) blood urea nitrogen 6 mg/dL 7-18 Below low normal Blood Urea Nitrogen [facility] ([facility]) creatinine for GFR 0.68 mg/dL 0.55-1.30 Creatinine for GF R [facility] ([facility]) potassium serum 4.1 mEq/L 3.5-5.1 Potassium Serum ATHE NA [facility]) chloride level 109 mEq/L 98-107 Above high normal Chloride Level [facility] ([facility]) carbon dioxide level 27 mEq/L 21-32 Carbon Dioxide Level [facility] ([facility]) anion gap 5 mEq/L 8-16 Below low normal Anion Gap [facility] ( [facility]) calcium level 9.4 mg/dL 8.5-10.1 [facility] [place] [facility] AST/SGOT 38 U/L 7-37 Above high normal AST/SGOT [facility] ([facility]) ALT/SGPT 143 U/L 12-78 Above high normal ALT/SGPT [facility] ([facility]) alkaline phosphatase 141 U/L 45-117 Above high normal Alkaline Phosphatase [facility] ([facility]) albumin 3.2 gm/dL 3.2-5.2 Albumin [facility] ([facility]) bilirubin,total 0.2 mg/dL 0.2-1.0 Bilirubin,total ATHE ([facility]) total protein 6.7 gm/dL 6.4-8.2 Total Protein [facility] ( [facility]) albumin/globulin ratio 1.2-2.2 Below low normal Albumin /globulin Ratio [facility] ([facility]) ID Date Data Source [id number] 09/23/2020 01:00:00 PM [facility] Name Value Range Interpretation Code Description Data Joyce rce(s) Supporting Document(s) thyroid stimulating hormone 7.930 uIU/mL 0.358-3.740 Above high no rmal Thyroid Stimulating Hormone [facility] ([facility]) ID Date Data Source [id number] 09/23/2020 01:00:00 PM EST [facility] ([facility]) Name Value Range Interpretation Code Description Data Joyce rce(s) Supporting Document(s) blood urea nitrogen 6 mg/dL 7-18 Below low normal Blood Urea Nitrogen [facility] ([facility]) glucose, fasting 80 mg/dL 70-100 Glucose, Fasting AT [facility]) sodium level 141 mEq/L 136-145 Sodium Level [facility] ([facility]) creatinine for GFR 0.68 mg/dL 0.55-1.30 Creatinine for GF R [facility] ([facility]) glomerular filtration rate > 60.0 >58 Glomerula r Filtration Rate [facility] ([facility]) carbon dioxide level 27 mEq/L 21-32 Carbon Dioxide Level [facility] ([facility]) anion gap 5 mEq/L 8-16 Below low normal Anion Gap [facility] ( [facility]) chloride level 109 mEq/L 98-107 Above high normal Chloride Level [facility] ([facility]) potassium serum 4.1 mEq/L 3.5-5.1 Potassium Serum ATHE ([facility]) alkaline phosphatase 141 U/L 45-117 Above high normal Alkaline Phosphatase [facility] ([facility]) bilirubin,total 0.2 mg/dL 0.2-1.0 Bilirubin,total ATHE NA ([facility]) calcium level 9.4 mg/dL 8.5-10.1 Calcium Level [facility] ( [facility]) AST/SGOT 38 U/L 7-37 Above high normal AST/SGOT [facility] ([facility]) ALT/SGPT 143 U/L 12-78 Above high normal ALT/SGPT [facility] ([facility]) albumin/globulin ratio 1.2-2.2 Below low normal Albumin /globulin Ratio [facility] ([facility]) albumin 3.2 gm/dL 3.2-5.2 Albumin [facility] ([facility]) total protein 6.7 gm/dL 6.4-8.2 Total Protein [facility] ( [facility]) ID Date Data Source [id number] 09/23/2020 01:00:00 PM EST [facility] ([facility]) Name Value Range Interpretation Code Description Data Joyce rce(s) Supporting Document(s) thyroid stimulating hormone 7.930 uIU/mL 0.358-3.740 Above high no rmal Thyroid Stimulating Hormone [facility] ([facility]) ID Date Data Source [id number] 09/23/2020 01:00:00 PM EST [facility] ([facility]) Name Value Range Interpretation Code Description Data Joyce rce(s) Supporting Document(s) glucose, fasting 80 mg/dL 70-100 Glucose, Fasting AT [facility] ([facility]) blood urea nitrogen 6 mg/dL 7-18 Below low normal Blood Urea Nitrogen [facility] ([facility]) creatinine for GFR 0.68 mg/dL 0.55-1.30 Creatinine for GF R [facility] ([facility]) chloride level 109 mEq/L 98-107 Above high normal Chloride Level [facility] ([facility]) carbon dioxide level 27 mEq/L 21-32 Carbon Dioxide Level [facility] ([facility]) glomerular filtration rate > 60.0 >58 Glomerula r Filtration Rate [facility] ([facility]) potassium serum 4.1 mEq/L 3.5-5.1 Potassium Serum ATHE NA ([facility]) sodium level 141 mEq/L 136-145 Sodium Level [facility] ([facility]) ALT/SGPT 143 U/L 12-78 Above high normal ALT/SGPT [facility] ([facility]) AST/SGOT 38 U/L 7-37 Above high normal AST/SGOT [facility] ([facility]) calcium level 9.4 mg/dL 8.5-10.1 Calcium Level [facility] ( [facility]) anion gap 5 mEq/L 8-16 Below low normal Anion Gap [facility] ( [facility]) bilirubin,total 0.2 mg/dL 0.2-1.0 Bilirubin,total ATHE ([facility]) alkaline phosphatase 141 U/L 45-117 Above high normal Alkaline Phosphatase [facility] ([facility]) total protein 6.7 gm/dL 6.4-8.2 Total Protein [facility] ( [facility]) albumin 3.2 gm/dL 3.2-5.2 Albumin [facility] ([facility]) albumin/globulin ratio 1.2-2.2 Below low normal Albumin /globulin Ratio [facility] ([facility]) ID Date Data Source [id number] 09/23/2020 01:00:00 PM [facility] Name Value Range Interpretation Code Description Data Joyce rce(s) Supporting Document(s) thyroid stimulating hormone 7.930 uIU/mL 0.358-3.740 Above high no rmal Thyroid Stimulating Hormone [facility] ([facility]) ID Date Data Source [id number] 09/23/2020 01:00:00 PM EST [facility] ([facility]) Name Value Range Interpretation Code Description Data Joyce rce(s) Supporting Document(s) glucose, fasting 80 mg/dL 70-100 Glucose, Fasting AT [facility]) glomerular filtration rate > 60.0 >58 Glomerula r Filtration Rate [facility] ([facility]) creatinine for GFR 0.68 mg/dL 0.55-1.30 Creatinine for GF R [facility] ([facility]) blood urea nitrogen 6 mg/dL 7-18 Below low normal Blood Urea Nitrogen [facility] ([facility]) sodium level 141 mEq/L 136-145 Sodium Level [facility] ([facility]) chloride level 109 mEq/L 98-107 Above high normal Chloride Level [facility] ([facility]) anion gap 5 mEq/L 8-16 Below low normal Anion Gap [facility] ( [facility]) potassium serum 4.1 mEq/L 3.5-5.1 Potassium Serum ATHE NA ([facility]) carbon dioxide level 27 mEq/L 21-32 Carbon Dioxide Level [facility] ([facility]) calcium level 9.4 mg/dL 8.5-10.1 Calcium Level [facility] ( [facility]) ALT/SGPT 143 U/L 12-78 Above high normal ALT/SGPT [facility] ([facility]) AST/SGOT 38 U/L 7-37 Above high normal AST/SGOT [facility] ([facility]) bilirubin,total 0.2 mg/dL 0.2-1.0 Bilirubin,total ATHE [facility]) alkaline phosphatase 141 U/L 45-117 Above high normal Alkaline Phosphatase [facility] ([facility]) albumin 3.2 gm/dL 3.2-5.2 Albumin [facility] ([facility]) total protein 6.7 gm/dL 6.4-8.2 Total Protein [facility] ( [facility]) albumin/globulin ratio 1.2-2.2 Below low normal Albumin /globulin Ratio [facility] ([facility]) ID Date Data Source [id number] 09/23/2020 01:00:00 PM EST [facility] ([facility]) Name Value Range Interpretation Code Description Data Joyce rce(s) Supporting Document(s) thyroid stimulating hormone 7.930 uIU/mL 0.358-3.740 Above high no rmal Thyroid Stimulating Hormone [facility] ([facility]) ID Date Data Source [id number] 09/23/2020 01:00:00 PM EST [facility] ([facility]) Name Value Range Interpretation Code Description Data Joyce rce(s) Supporting Document(s) glucose, fasting 80 mg/dL 70-100 Glucose, Fasting AT [place] ([facility]) blood urea nitrogen 6 mg/dL 7-18 Below low normal Blood Urea Nitrogen [facility] ([facility]) creatinine for GFR 0.68 mg/dL 0.55-1.30 Creatinine for GF R [facility] ([facility]) glomerular filtration rate > 60.0 >58 Glomerula r Filtration Rate [facility] ([facility]) chloride level 109 mEq/L 98-107 Above high normal Chloride Level [facility] ([facility]) potassium serum 4.1 mEq/L 3.5-5.1 Potassium Serum ATHE NA ([facility]) sodium level 141 mEq/L 136-145 Sodium Level [facility] ([facility]) carbon dioxide level 27 mEq/L 21-32 Carbon Dioxide Level [facility] ([facility]) AST/SGOT 38 U/L 7-37 Above high normal AST/SGOT [facility] ([facility]) calcium level 9.4 mg/dL 8.5-10.1 Calcium Level [facility] ( [facility]) anion gap 5 mEq/L 8-16 Below low normal Anion Gap [facility] ( [facility]) ALT/SGPT 143 U/L 12-78 Above high normal ALT/SGPT [facility] ([facility]) alkaline phosphatase 141 U/L 45-117 Above high normal Alkaline Phosphatase [facility] ([facility]) total protein 6.7 gm/dL 6.4-8.2 Total Protein [facility] ( [facility]) bilirubin,total 0.2 mg/dL 0.2-1.0 Bilirubin,total ATHE ([facility]) albumin/globulin ratio 1.2-2.2 Below low normal Albumin /globulin Ratio [facility] ([facility]) albumin 3.2 gm/dL 3.2-5.2 Albumin [facility] ([facility]) ID Date Data Source [id number] 09/23/2020 01:00:00 PM EST [facility] ([facility]) Name Value Range Interpretation Code Description Data Joyce rce(s) Supporting Document(s) thyroid stimulating hormone 7.930 uIU/mL 0.358-3.740 Above high no rmal Thyroid Stimulating Hormone [facility] ([facility]) ID Date Data Source [id number] 09/23/2020 01:00:00 PM EST [facility] ([facility]) Name Value Range Interpretation Code Description Data Joyce rce(s) Supporting Document(s) creatinine for GFR 0.68 mg/dL 0.55-1.30 Creatinine for GF R [facility] ([facility]) blood urea nitrogen 6 mg/dL 7-18 Below low normal Blood Urea Nitrogen [facility] ([facility]) glucose, fasting 80 mg/dL 70-100 Glucose, Fasting AT [facility]) glomerular filtration rate > 60.0 >58 Glomerula r Filtration Rate [facility] ([facility]) potassium serum 4.1 mEq/L 3.5-5.1 Potassium Serum ATHE ([facility]) sodium level 141 mEq/L 136-145 Sodium Level [facility] ([facility]) carbon dioxide level 27 mEq/L 21-32 Carbon Dioxide Level [facility] ([facility]) AST/SGOT 38 U/L 7-37 Above high normal AST/SGOT [facility] ([facility]) chloride level 109 mEq/L 98-107 Above high normal Chloride Level [facility] ([facility]) anion gap 5 mEq/L 8-16 Below low normal Anion Gap [facility] ( [facility]) calcium level 9.4 mg/dL 8.5-10.1 Calcium Level [facility] ( [facility]) total protein 6.7 gm/dL 6.4-8.2 Total Protein [facility] ( [facility]) bilirubin,total 0.2 mg/dL 0.2-1.0 Bilirubin,total ATHE [facility]) ALT/SGPT 143 U/L 12-78 Above high normal ALT/SGPT [facility] ([facility]) alkaline phosphatase 141 U/L 45-117 Above high normal Alkaline Phosphatase [facility] ([facility]) albumin 3.2 gm/dL 3.2-5.2 Albumin [facility] ([facility]) albumin/globulin ratio 1.2-2.2 Below low normal Albumin /globulin Ratio [facility] ([facility]) ID Date Data Source [id number] 09/23/2020 01:00:00 PM EST [facility] ([facility]) Name Value Range Interpretation Code Description Data Joyce rce(s) Supporting Document(s) thyroid stimulating hormone 7.930 uIU/mL 0.358-3.740 Above high no rmal Thyroid Stimulating Hormone [facility] ([facility]) ID Date Data Source [id number] 09/23/2020 01:00:00 PM EST [facility] ([facility]) Name Value Range Interpretation Code Description Data Joyce rce(s) Supporting Document(s) glucose, fasting 80 mg/dL 70-100 Glucose, Fasting AT [facility]) blood urea nitrogen 6 mg/dL 7-18 Below low normal Blood Urea Nitrogen [facility] ([facility]) creatinine for GFR 0.68 mg/dL 0.55-1.30 Creatinine for GF R [facility] ([facility]) glomerular filtration rate > 60.0 >58 Glomerula r Filtration Rate [facility] ([facility]) sodium level 141 mEq/L 136-145 Sodium Level [facility] ([facility]) potassium serum 4.1 mEq/L 3.5-5.1 Potassium Serum ATHE NA [facility]) chloride level 109 mEq/L 98-107 Above high normal Chloride Level [facility] ([facility]) anion gap 5 mEq/L 8-16 Below low normal Anion Gap [facility] ( [facility]) AST/SGOT 38 U/L 7-37 Above high normal AST/SGOT [facility] ([facility]) calcium level 9.4 mg/dL 8.5-10.1 Calcium Level [facility] ( [facility]) carbon dioxide level 27 mEq/L 21-32 Carbon Dioxide Level [facility] ([facility]) total protein 6.7 gm/dL 6.4-8.2 Total Protein [facility] ( [facility]) bilirubin,total 0.2 mg/dL 0.2-1.0 Bilirubin,total ATHE NA ([facility]) ALT/SGPT 143 U/L 12-78 Above high normal ALT/SGPT [facility] ([facility]) alkaline phosphatase 141 U/L 45-117 Above high normal Alkaline Phosphatase [facility] ([facility]) albumin 3.2 gm/dL 3.2-5.2 Albumin [facility] ([facility]) albumin/globulin ratio 1.2-2.2 Below low normal Albumin /globulin Ratio [facility] ([facility]) ID Date Data Source [id number] 09/23/2020 01:00:00 PM EST [facility] ([facility]) Name Value Range Interpretation Code Description Data Joyce rce(s) Supporting Document(s) thyroid stimulating hormone 7.930 uIU/mL 0.358-3.740 Above high no rmal Thyroid Stimulating Hormone [facility] ([facility]) ID Date Data Source [id number] 09/23/2020 01:00:00 PM EST [facility] ([facility]) Name Value Range Interpretation Code Description Data Joyce rce(s) Supporting Document(s) blood urea nitrogen 6 mg/dL 7-18 Below low normal Blood Urea Nitrogen [facility] ([facility]) glucose, fasting 80 mg/dL 70-100 Glucose, Fasting AT [facility] ([facility]) potassium serum 4.1 mEq/L 3.5-5.1 Potassium Serum ATHE NA ([facility]) creatinine for GFR 0.68 mg/dL 0.55-1.30 Creatinine for GF R [facility] ([facility]) sodium level 141 mEq/L 136-145 Sodium Level [facility] ([facility]) glomerular filtration rate > 60.0 >58 Glomerula r Filtration Rate [facility] ([facility]) chloride level 109 mEq/L 98-107 Above high normal Chloride Level [facility] ([facility]) calcium level 9.4 mg/dL 8.5-10.1 Calcium Level [facility] ( [facility]) carbon dioxide level 27 mEq/L 21-32 Carbon Dioxide Level [facility] ([facility]) anion gap 5 mEq/L 8-16 Below low normal Anion Gap REZA ( [facility]) alkaline phosphatase 141 U/L 45-117 Above high normal Alkaline Phosphatase REZA ([facility]) ALT/SGPT 143 U/L 12-78 Above high normal ALT/SGPT RE[facility] ([facility]) AST/SGOT 38 U/L 7-37 Above high normal AST/SGOT REZA ([facility]) bilirubin,total 0.2 mg/dL 0.2-1.0 Bilirubin,total ATHE [facility]) albumin/globulin ratio 1.2-2.2 Below low normal Albumin /globulin Ratio REZA ([facility]) total protein 6.7 gm/dL 6.4-8.2 Total Protein REZA ( [facility]) albumin 3.2 gm/dL 3.2-5.2 Albumin REZA ([facility]) ID Date Data Source [id number] 09/23/2020 01:00:00 PM EST VENICE ([facility]) Name Value Range Interpretation Code Description Data Joyce rce(s) Supporting Document(s) thyroid stimulating hormone 7.930 uIU/mL 0.358-3.740 Above high no rmal Thyroid Stimulating Hormone REZA ([facility]) ID Date Data Source [id number] 09/23/2020 01:00:00 PM EST REZA ([facility]) Name Value Range Interpretation Code Description Data Joyce rce(s) Supporting Document(s) glucose, fasting 80 mg/dL 70-100 Glucose, Fasting AT AMARILIS ([facility]) creatinine for GFR 0.68 mg/dL 0.55-1.30 Creatinine for GF R VENICE ([facility]) blood urea nitrogen 6 mg/dL 7-18 Below low normal Blood Urea Nitrogen REZA ([facility]) sodium level 141 mEq/L 136-145 Sodium Level REZA ([facility]) chloride level 109 mEq/L 98-107 Above high normal Chloride Level REZA ([facility]) glomerular filtration rate > 60.0 >58 [place]omer[place] r Filtration Rate REZA ([facility]) potassium serum 4.1 mEq/L 3.5-5.1 Potassium Serum ATHE NA ([facility]) ALT/SGPT 143 U/L 12-78 Above high normal ALT/SGPT REZA ([facility]) anion gap 5 mEq/L 8-16 Below low normal Anion Gap REZA ( [facility]) calcium level 9.4 mg/dL 8.5-10.1 Calcium Level REZA ( [facility]) AST/SGOT 38 U/L 7-37 Above high normal AST/SGOT REZA ([facility]) carbon dioxide level 27 mEq/L 21-32 Carbon Dioxide Level REZA ([facility]) total protein 6.7 gm/dL 6.4-8.2 Total Protein REZA ( [facility]) albumin 3.2 gm/dL 3.2-5.2 Albumin REZA ([facility]) alkaline phosphatase 141 U/L 45-117 Above high normal Alkaline Phosphatase REZA ([facility]) bilirubin,total 0.2 mg/dL 0.2-1.0 Bilirubin,total ATHE ([facility]) albumin/globulin ratio 1.2-2.2 Below low normal Albumin /globulin Ratio REZA ([facility]) ID Date Data Source [id number] 09/17/2020 02:40:38 PM [facility] Name Value Range Interpretation Code Description Data Joyce rce(s) Supporting Document(s) Progress Note [facility] KDLGOt4nZsRDGtNg22/LDWytORTmw6LfG[id number] [facility] [file] ID Date Data Source [id number] 09/16/2020 06:21:43 PM [facility] CT ABDOMEN PELVIS WITH CONTRAST [id number] AL RESULTInterpreted by:SUZETTE LandersPROCEDURE INFORMATION: Exam: CT Abdomen And Pelvis With Contrast Exam date and time: 09/16/2020 5:26 PM Age: 49 years old Clinical indication: Malignant neoplasm of unspecified site of left female breast; Other nonspecific abnormal finding of lung field; Estrogen receptor positive status (er+); Other: Breast CA; Additional info: Breast cancer, restaging scan to evaluate for metastatic disease/response to treatment TECHNIQUE: Imaging protocol: Computed tomography of the abdomen and pelvis with contrast. Radiation optimization: All CT scans at this facility use at least one of these dose optimization techniques: automated exposure control; mA and/or kV adjustment per patient size (includes targeted exams where dose is matched to clinical indication); or iterative reconstruction. Contrast material: OMNI 300; Contrast volume: 100 ml; Contrast route: INTRAVENOUS (IV); Other technique: COMPARISON MORE: CT ABD/PEL W/IV CONTRAST ONLY 03/28/2020 2:19:00 PM COMPARISON: No relevant prior studies available. FINDINGS: Lungs: 4 mm and 8-9 mm left lung base nodules, unchanged. Mediastinal space: Small hiatal hernia Liver: Normal in size. Gallbladder and bile ducts: Cholecystectomy. Mild central intrahepatic biliary duct dilation. Common bile duct is dilated measuring to 12 mm, increased since the prior. Pancreas: Pancreas is partially atrophic. Spleen: Normal. No splenomegaly. Adrenal glands: Normal. No mass. Kidneys and ureters: Symmetric enhancement. No hydronephrosis. Stomach and bowel: No dilated loops. Oral contrast reaches rectum. Appendix: No evidence of appendicitis. Intraperitoneal space: Unremarkable. No free air. No drainable fluid collection. Vasculature: Atherosclerotic calcifications. No abdominal aortic aneurysm. Lymph nodes: Unremarkable. No enlarged lymph nodes. Urinary bladder: Partially contracted. Reproductive: Unremarkable as visualized. Bones/joints: Sclerotic foci noted in bilateral inferior pubic rami and acetabulum. Grade 1 anterolisthesis L5 on S1. Spondylosis. Soft tissues: Unremarkable. IMPRESSION: 1. Common bile duct is dilated measuring to 12 mm, increased since the prior. If clinically warranted, consider evaluation with MRCP.2. 4 mm and 8-9 mm left lung base nodules, unchanged. THIS DOCUMENT HAS BEEN ELECTRONICALLY SIGNED BY GRISELDA Garcias document has been electronically signed by SUZETTE Landers on 09/16/2020 6:21 PM Name Value Range Interpretation Code Description Data Joyce rce(s) Supporting Document(s) ID Date Data Source [id number] 09/12/2020 12:42:36 PM [facility] Name Value Range Interpretation Code Description Data Joyce rce(s) Supporting Document(s) Progress Note [facility] KGSDZj4bFeBFMtVn46/DKBnaUAZio4WbPOegGRa9DZetUQKoL4UtAPY6zB4kJJR7MRuWYsQtGdFcXvR7 lbm [file] mXlkrNHxsFQdFvfGlyfGFE1mJ60cU5yHPB2Tag35q6K9R6Z+urban planner+yWO/3Na/6g38Yfzs4sJij5ewGTsaz [file] ICAgICAgICAgICAgICAgICAgICAgICAgICAgICAgICAgICAgICAgICAgICAgICAgICAgICAgICAgICAg ICAgICAgICAgICAgICAgICAgICAgICAgICAgICAgIC AgICAgICANCiAgICAgICAgICAgICAgICAgICAgICAgICAgICAgICAgICAgICAgICAgICAgICAgICAgIC AgICAgICAgICAgICAgICAgICAgICAgICAgICAgICAgICAgICAgICAgICAgICAgICANCiAgICAgICAgIC AgICAgICAgICAgICAgICAgICAgICAgICAgICAgICAg ICAgICAgICAgICAgICAgICAgICAgICAgICAgICAgICAgICAgICAgICAgICAgICAgICAgICAgICAgICAN CiAgICAgICAgICAgICAgICAgICAgICAgICAgICAgICAgICAgICAgICAgICAgICAgICAgICAgICAgICAg ICAgICAgICAgICAgICAgICAgICAgICAgICAgICAgIC AgICAgICAgICANCiAgICAgICAgICAgICAgICAgICAgICAgICAgICAgICAgICAgICAgICAgICAgICAgIC AgICAgICAgICAgICAgICAgICAgICAgICAgICAgICAgICAgICAgICAgICAgICAgICAgICANCiAgICAgIC AgICAgICAgICAgICAgICAgICAgICAgICAgICAgICAg ICAgICAgICAgICAgICAgICAgICAgICAgICAgICAgICAgICAgICAgICAgICAgICAgICAgICAgICAgICAg ICANCiAgICAgICAgICAgICAgICAgICAgICAgICAgICAgICAgICAgICAgICAgICAgICAgICAgICAgICAg ICAgICAgICAgICAgICAgICAgICAgICAgICAgICAgIC AgICAgICAgICAgICANCiAgICAgICAgICAgICAgICAgICAgICAgICAgICAgICAgICAgICAgICAgICAgIC AgICAgICAgICAgICAgICAgICAgICAgICAgICAgICAgICAgICAgICAgICAgICAgICAgICAgICANCiAgIC AgICAgICAgICAgICAgICAgICAgICAgICAgICAgICAg ICAgICAgICAgICAgICAgICAgICAgICAgICAgICAgICAgICAgICAgICAgICAgICAgICAgICAgICAgICAg ICAgICANCiAgICAgICAgICAgICAgICAgICAgICAgICAgICAgICAgICAgICAgICAgICAgICAgICAgICAg ICAgICAgICAgICAgICAgICAgICAgICAgICAgICAgIC AgICAgICAgICAgICAgICANCjw/mTOyJ3lihNFdwzL0X1cyJj1OHx1RGD4uv6XxNUQhDEbxoiMrPhzVXm JmVNGqIfqPNan4EHwuIN4GvRJnV2YhM6JtGAixCU1HLJYrUUYchOJgNHAgFFXeKkI5HYYyQHdvVA7BkF RzIFsgNSAwIFIgNyAwIFIgOSAwIFIgMTEgMCBSIDEz FBIsFfIrMJWwPYWgDIyjRWOSGUH2HRZkPkLyXTpsCI3Te2PhnLR9KSh+Wv6GLA8wj5FuULr3GHChWZ9a bl5FMIpMHlTkK8PboaL5ARP2JOHtZf8AAICgYHMtuNC9SOXmITNOMnOfM4SgqL76UIKCMp8+DQplbmRv PnlRNxF6IMCdu3TzMDc9AW4BEKBlZRm2xGQiRUGsS9 Goq7ItBl18RPXzNjzeIoJzfa6oCQDtYSHbRWceSULcRZQkBi3pXaRvFcNoLPt0UCXsJL9qRWhbYK9UXV M6XCwsUYZwDGAvE5bTFuHvQMRzOzHaiMxyBN1KVrBgY7LdiuNhpUW4XMLhEQZJLc6+DQplbmRvYmoNCj I1ONDys8ZhMEm6KA7SEDEaJAssRO7FENUcdE6yJCga VP5JXeA5ExJfSMFQJkFmS95bhJQoYLv6W6DzNoNlGCEzVtnoZCHdWZlcXoArSIXaAzDqOYypKX6+ID4+ RIvaVJ9YCHriorBpYEZfUl9KJLYuOGSyLS2oIWZbZUNiT1N2nPgfSCFLVkTlL7hppevfUG1mWDVcK523 cXdbxdXnNMN1DLTrVb9ZLGIsYLU0FVNhlSDaKEEoJG RMBAtdUW8WnFYrOUZ7aJ2xDGqmZYBuRNLeK5zPXiNsfSgcZM89oFlkibOreFNnHLn+Gt6VON7cq7TmBV r9nfXxIWwxTLC5KGxjITGwHGNyIVGvQQN2CSP9GPYRIlHtVYMqXCHjOOppOHLcODWgab5LHDEzHZC8Dx gnOORdKGQzCQTxPKoqJYTdEOt3BZc5GYEeHMOrJO4C GeIrXFBgKJIvDKiySRUxVSVtvm5IRAGcKZHrRQtrFmUxRPUpQZBrFCvqSPXsTXT1DIVrPEHaQYUaZZ2X XkQiPJVgOYXzDXDjHEVqLCKelj9ZLHSxUJHxOBTvMJEwUCUeWKYkUOcxVQCzRIKdDlunNFIxDQPlZA6R OqQpJAYqZNC3ZMCcIHLlRPSlsx7PUHPxSNFbRAm2NW BkHWDhCYTrDItjODPdNAP7XIK4OQWeINSyDB6QLmFcZPWoCBb7VQtgTRXlQBNxmh4TXOIePPDrJLv1DC DeJLZkHWKuDSuqBEYiMVZeLSXvQPMdHOKbVA8IKkFcRHHnHhIeIIpvPYMoQIMepk4URFVeCERoAwU6FX QxUFSpYPRrYFwxJVAkNPR0VbU1GNWiDAMbHK7LCkKm EOSjMxJbKSYiIMCuXTZavq0LNNSrDSKvPPP5VVHwZIOwXYHrBZyoJJXnWSHlEGX4UZAlJWXeFJ7ESbUn WVLeWmT3DCGmVHQiLPXvrj3PRRWuEDZgJjxpRCTwDORvIHNoNMhnJUEaTGPzQzd5LSTqLKAkNN4DImSc BAHfZaLbUBQtWHVqAQWpuj3EHBQzWUByUVB5YLHtIQ MkHPIbFNecFHEdJIX7KjH9KHPgHLOzRS8WWwYpZWFqCXD8HXCkVXPtRGOahh8NXAXmANE3GbQ7XyIxFZ CeONGsNDgsIFKmMMW5HQIaGKAfQOHlHA7HTqWmOEFjNTW1PKjgJLAtMLNjel2FRUJrLAU4RpD1QhIwET VhWJTxAVdpBDApDAW4BykbFDVyIASxKS8IJmCbDKNp MHt0GNOkYGApMOLpvr1YIQRlEWV0CQW7WIQcFPPyBWUxUAxhRVCaJMi2ZyH9IWXsCZEsWN4OYuPbOAKm SiS6HoQeQJNuAMCuwc4VSHGvYML1LoO6EkShAVWrXMMiHPenNNRnJAr2HPa3ZPPoZMQaIA7SZxMyFUFq Fxj0BOTpDSAuIDZzfw3XOZAhNBS1KsOuEZByNNHtPB CzEZrtRFQcBBd7OZL5ETTuCPBaJQ2GGqZmLXAqKhuxORbqXENxGQZhhm1CAJIlJYH5LQg1SgQdYKKiJH UdPEkvWBJoYQd1ZNXmSIPaXEHtYT1JLvWyRFVxHmt0MnHgQXFePXAjpd3OkKZkkSjtat7GPMbGRv3VfV wrDGL0JYziRm6cxVL9GlLhVEJJMl8ImwAbBCSyHXMY KZfsEFZzAMsfHxOoSfZhY8P8SKXnTbI9ZMMyYbPmJlA7UVAmSZZvWfA6MBVaTIU1UIE6ALNjKHHbLld4 YxSpE6AgHyIjYLRkMoE+DL6kEFs+Px8Fk4DbkwZ6btWkTWl4LGXrYB2XOMTYP0CWKz== ID Date Data Source [id number] 09/09/2020 05:32:00 PM [facility] Name Value Range Interpretation Code Description Data Joyce rce(s) Supporting Document(s) Progress Note [facility] ZDLKSv4hSuFPQsNu80/GIZzkOFVcc7NcYUrmHCc9WSsnTBNxC3AxGIJ6qO9sYCX1TFpKNrZcVrYdIgKn lbm [file] YNCg== ID Date Data Source [id number] 09/06/2020 10:07:11 PM [facility] Name Value Range Interpretation Code Description Data Joyce rce(s) Supporting Document(s) Progress Note [facility] BBKELc4bRtDZOpLl77/BWZhqSKVte1QdZLvdHHq4BUylGUPrP9IvJGM0tJ1aGEO2DHtXOnUuTaVcPTS5 lbm [file] ShHTkhjBINwioDd6hqoZumZJ4drrCOHlGwF2MOuG9E//rF5VcoQGszIPE6nudtA+wG0LwSY+Ruma/a8rCU PBEQdHwaRSafzzD8KRrzVRzItE5NDHQ1RKccegdCRbCBrlFZuAeyWEDmKck6hPOkZI0+htINHJsJmOa1 AUTO BODY ESTIMATOR/BUVicTW6FBdft1NR88Fu172BvCJVU8v+iZD/5qi [file] ICAgICAgICAgICAgICAgICAgICAgICAgICAgICAgIC AgICAgICAgICAgICAgICAgICAgICAgICAgICAgICAgICAgICAgICAgICANCiAgICAgICAgICAgICAgIC AgICAgICAgICAgICAgICAgICAgICAgICAgICAgICAgICAgICAgICAgICAgICAgICAgICAgICAgICAgIC AgICAgICAgICAgICAgICAgICAgICAgICANCiAgICAg ICAgICAgICAgICAgICAgICAgICAgICAgICAgICAgICAgICAgICAgICAgICAgICAgICAgICAgICAgICAg ICAgICAgICAgICAgICAgICAgICAgICAgICAgICAgICAgICANCiAgICAgICAgICAgICAgICAgICAgICAg ICAgICAgICAgICAgICAgICAgICAgICAgICAgICAgIC AgICAgICAgICAgICAgICAgICAgICAgICAgICAgICAgICAgICAgICAgICAgICANCiAgICAgICAgICAgIC AgICAgICAgICAgICAgICAgICAgICAgICAgICAgICAgICAgICAgICAgICAgICAgICAgICAgICAgICAgIC AgICAgICAgICAgICAgICAgICAgICAgICAgICANCiAg ICAgICAgICAgICAgICAgICAgICAgICAgICAgICAgICAgICAgICAgICAgICAgICAgICAgICAgICAgICAg ICAgICAgICAgICAgICAgICAgICAgICAgICAgICAgICAgICAgICANCiAgICAgICAgICAgICAgICAgICAg ICAgICAgICAgICAgICAgICAgICAgICAgICAgICAgIC AgICAgICAgICAgICAgICAgICAgICAgICAgICAgICAgICAgICAgICAgICAgICAgICANCiAgICAgICAgIC AgICAgICAgICAgICAgICAgICAgICAgICAgICAgICAgICAgICAgICAgICAgICAgICAgICAgICAgICAgIC AgICAgICAgICAgICAgICAgICAgICAgICAgICAgICAN CiAgICAgICAgICAgICAgICAgICAgICAgICAgICAgICAgICAgICAgICAgICAgICAgICAgICAgICAgICAg ICAgICAgICAgICAgICAgICAgICAgICAgICAgICAgICAgICAgICAgICANCiAgICAgICAgICAgICAgICAg ICAgICAgICAgICAgICAgICAgICAgICAgICAgICAgIC AgICAgICAgICAgICAgICAgICAgICAgICAgICAgICAgICAgICAgICAgICAgICAgICAgICANCjw/eHBhY2 ecxWHbfuA1T0syMy3BZn9EOQ4tq2FjOOYwTUczjqDyFueDLbMoIDJnYaaEYui3DMgjFW6EpTPtL5QcL6 KsVLgwWQ4DMUMfELFqgIQdZCCzYIPcYoN2UYLmKBnm XW5AgHDyUBpnIYZyXEKuHRBlJEOmTHKbTEDHRVQxJZQaGfYgNVIyPZGcCCToOSJAEBU4QRIxNkDeXKOk MSKyEiUwHQHHHOF3VPZsUgXkPyBzIBIkFwinQBLAZM4NXuTeJ6ZllI89SJRwUMx+Hg5IIS0go5FeHYq2 LZRcBL2duq9VOGmFBpDqF0BnesJ7URZ6MVObVd9IDP ZbKNOocDN5GsJvVKACKwGoT6ZegW98OYHZFn4+BEifcmRwAipEEyG2ANGsp0VxCCc2RV0NVPVjVEd2zD ThODCqR9Xmx0HfTm72THZzLkivDADtoTEpQZATXO8ybnZyomsyJvZdASNqBB6lCb2iVCSkXIA3IuE9VO PUEJ1MRHVtCLXzbPPeJWSoZIIMPS4FZMimIWZ9BHUl frIytBOtGEgdOS4XAVTlbiIvIUZyMPQTCQv+Nd6CWE8hv3DxYYr4QTMkq8QrCJe7ZI5OLYLdAPypRRUi RV8yx0AfP4N1ChL7iZRsE9kiafqlI8TtyoQtcwMuLJUfYQXtWQ4ZPP3ZKK5MDJEeTPzpWJ0HKMW4BPx7 RtY6TCZeWQQqXHJ5WE3jTYkfWP9KYCg8W6CrO9HDHP ToPLJGSULpiOW1WDMWGn5SX2DWKlhPTRPPFk2FDrDzW3XVT0oAF66DZH3QDTS+PiANCj4+DQplbmRvYm wSEuY1GBIfi0QoIFq7KM1JLJHtIPkdCJ5YNMXitV7jYFxaHJ4VXyV2LhXtFQTJLyFyE93ywLMsOBp7X5 VtYmVkZGVkRmlsZXMgPDwvTmFtZXMgWyBdDQogID4+ ID4+MEcnFR6JXExdsbUjYHAxDu2RWSRsMZJkOY0qHEIkDASiY0O9fEjlSYDBGvHrO6ptlbzfVD4oZPGt H991qJlpkjBoEBD7DBYjQa0NKCZyYLH6JROlcAChFWPnAIRQODfcFC2ChRYyHNN9wO3wEDmtMNKbVQSr W8tGBwSylHqbTY66xIfygnTkrHIkJJc+Wz8BMO0pb5 MoBSj2hoVlZAdeKKD6VSfiNPPeWZOsHWOsWOJ3JYM6ZXOKSkUjCYBhMMVsOBymCADsOGQtrb0QVPApPC O9SLH6ZzZoMNZxEAFyHZdbUQHjDLL7ZOZ8GTJdOSGpTV8WIiWpRHYuHLSoDLrnQHAmMOPeri4ZVPRdJT QcZnJzFTBfPTWiPANhGInbDRQxZAV5ThV9LKYzMQWa SF6EOiQiRBYrCYP0QjReJBYrPYOncv7WTHQlXQOnRhAtUkUrGUJzDSNwIWsxKIWrBQK6LgSuUZEyVFFa GF5WFxNqGXVzSODpRpVoDPOeXWFmch1SDPVuJNLfAPL4DxPqBBJoRKGjXOhtDKLvDEN0MQa8DIUxMYRq NR4SGcHuAVYzVCG8AAUcWZJtYUQdnx0BJBKlUWBqGs j2QHTaRACmKUGgJGzhNMBlPDO2GNn0IOWeZLJzWV8AVcGrIKOdQdFqQktlBBOhDYUonq0ZXEWpQKXlBP H0GVHuVFHrSLUdXQrmJTDjGVLmDuy9VRCyHCMrBZ4TVvKgSOIiXxY8UIDwCEUaKVCtiv8DSMMvAMPxJw xdQZBxHCRaLPLcZKwtSKObRJY4EVC3LELeJTFzDJ5L XbJkJBLlIacuYsSrDFYwQYWnkp5EEGLpJKKeAAD5ZSFcNWQgUSIdIHeiXRYyPEKzVkQ2NVZoWVWlNA4K SfXjBNNtRaH9CIGcPPImZVMdtu9LYZTsAHGtMlJyYFZwUIUtPTVqOOrzKCQkQJI4URT5FQTfGRVrVA6S QeQbNHHsClp3GUDaTAGrMMJdqg6WFJSaOSCjXXh4Qo CiMPIvKVSsNDwfBSSlLVT1OoWpVPTjADAjXV7RKaMaAWCvZkt8FFwzMMRsGNJfua8SASRaVGF5MLZsOl RtTBPhRWPlJYblJQEeQRCpZUzbFAZcHPHqTP1FHrBuUUHkKCFqUPUvHICxLLNimx0LORKbNKH7ZZO9GX GtBNYyUNLaDSuaVEWbSDYfUMOnPOGePZNvUY5JQpEh OQGtSWFtYpEoVZDgFOSesu1QULDzTPV4GnY1BGAnDQEsXYDoDTegNJJpTFTcPvo0VRFkWWKlWI4FWrMn MSLfVUE9BIBdMRPwDRUnsb1DUFWmZCV9DAi5KLMiGJApYVDpAVtaQSJwZMP4PXboBEWxYBUdEX7MRrHe XKJnVZMwNEGpABLsQQYhgc7AFDJlXYU8EZQ5OREiQX LqXDOdGTscSLCuMEL7OMauNRBiRCZrPD6ZGtCdZKElZKglSDWhIGUyDJEcrh4HFMEbYJO7MfN4XNMdCS MoLUNlFHj9fkKpkPNrDBy9WR1ZU3UblbIpRChCFh6Ke213FBN7VZNgFq0SR9chDa0tYBSbLQMBPv3XKL h6RYJ8RSO0ZJT4ZXaqJ3Z1MHNsQHF6REJuFuQyXfSn NWI+ZAojMMmeGAxwUQgjMRUfWxOaW8CnWwA5CvPyRPMlI1O2Xg0kHCXWYw1+DQpzdGFydHhyZWYNCjU3 YbP6AMluXBGEZh6Y ID Date Data Source [id number] 09/04/2020 10:02:20 AM EST [facility] Name Value Range Interpretation Code Description Data Joyce rce(s) Supporting Document(s) Leukocytes [#/volume] in Blood by Automated count 8.2 10*3/uL 4-10 [facility] Erythrocytes [#/volume] in Blood by Automated count 4.31 10*6/uL 4.1- 5.3 [facility] Hemoglobin [Mass/volume] in Blood 13.7 g/dL 11.5-15.5 [facility] Hematocrit [Volume Fraction] of Blood by Automated count 40.7 % 3 6-45 [facility] Erythrocyte mean corpuscular volume [Entitic volume] by Auto mated count 94.6 fL 80-96 [facility] Erythrocyte mean corpuscular hemoglobin [Entitic mass] by Automated count 31.9 pg 27-33 [facility] Erythrocyte mean corpuscular hemoglobin concentration [Mass/volume] by Automated count 33.7 g/dL 32.0-36.0 [facility] distribution width [Ratio] by Automated count 14.7 % 11.5-14.5 H [facility] Platelets [#/volume] in Blood by Automated count 253 10*3/uL 150-400 [facility] Differential cell count method - Blood [facility] Neutrophils/100 leukocytes in Blood by Automated count 68 % [facility] Lymphocytes/100 leukocytes in Blood by Automated count 22 % [facility] Monocytes/100 leukocytes in Blood by Automated count 8 % [facility] Eosinophils/100 leukocytes in Blood by Automated count 1 % [facility] Basophils/100 leukocytes in Blood by Automated count 1 % [facility] Neutrophils [#/volume] in Blood by Automated count 5.56 10*3/uL 1.8-7 .0 [facility] Lymphocytes [#/volume] in Blood by Automated count 1.80 10*3/uL 1.2-4 .0 [facility] Monocytes [#/volume] in Blood by Automated count 0.65 10*3/uL 0-0.8 [facility] Eosinophils [#/volume] in Blood by Automated count 0.10 10*3/uL 0-0.5 [facility] Basophils [#/volume] in Blood by Automated count 0.08 10*3/uL 0-0.2 [facility] Nucleated erythrocytes/100 leukocytes [Ratio] in Blood by Automated count 0 /100{WBCs} 0-0 [facility] ID Date Data Source [id number] 09/04/2020 10:40:40 AM [facility] Name Value Range Interpretation Code Description Data Joyce rce(s) Supporting Document(s) Albumin [Mass/volume] in Serum or Plasma by Bromocresol green (BCG) dye binding method 3.5 g/dL 3.5-5.2 [facility] Bilirubin.total [Mass/volume] in Serum or Plasma 0.2 mg/dL <1.2 [facility] Calcium [Mass/volume] in Serum or Plasma 9.2 mg/dL 8.6-10.0 [facility] Chloride [Moles/volume] in Serum or Plasma 106 mmol/L 98-107 [facility] Creatinine [Mass/volume] in Serum or Plasma 0.69 mg/dL 0.50-0.90 [facility] Glucose [Mass/volume] in Serum or Plasma 92 mg/dL 70-140 [facility] Alkaline phosphatase [Enzymatic activity/volume] in Serum or Plasma 103 U/L 35-104 [facility] Potassium [Moles/volume] in Serum or Plasma 3.5 mmol/L 3.4-5.1 [facility] Hemolyzed Protein [Mass/volume] in Serum or Plasma 6.5 g/dL 6.4-8.3 [facility] Sodium [Moles/volume] in Serum or Plasma 139 mmol/L 136-145 [facility] Aspartate aminotransferase [Enzymatic activity/volume] in Serum or Plasma 21 U/L <32 [facility] Urea nitrogen [Mass/volume] in Serum or Plasma 5 mg/dL 6-20 L [facility] Osmolality of Serum or Plasma by calculation 284 mosm/kg 275-300 [facility] Creatinine/Urea nitrogen [Mass Ratio] in Serum or Plasma 7 [facility] Bicarbonate [Moles/volume] in Serum 22 mmol/L 22-29 [facility] Alanine aminotransferase [Enzymatic activity/volume] in Seru m or Plasma 15 U/L <33 [facility] Anion gap 3 in Serum or Plasma 11 mmol/L 8-15 [facility] Glomerular filtration rate/1.73 sq M pre dicted among non-blacks [Volume Rate/Area] in Serum or Plasma by Creatinine-based formula (MDRD) >6 0 [facility] Glomerular filtration rate/1.73 sq M pre dicted among blacks [Volume Rate/Area] in Serum or Plasma by Creatinine-based formula (MDRD) >60 [facility] ID Date Data Source [id number] 08/29/2020 11:08:40 AM EST [facility] Name Value Range Interpretation Code Description Data Joyce rce(s) Supporting Document(s) Progress Note [facility] HAPXLe3yRaZFAnTe35/MAZgpGWFoi1LyJBfkLTk4ODqyZLEuC1OgKRO4qG3sOIV1ECbQFcQyMwOsPVLw lbm [file] [id number]= ID Date Data Source [id number] 08/23/2020 10:02:06 AM [facility] Name Value Range Interpretation Code Description Data Joyce rce(s) Supporting Document(s) Leukocytes [#/volume] in Blood by Automated count 7.5 10*3/uL 4-10 [facility] Erythrocytes [#/volume] in Blood by Automated count 4.40 10*6/uL 4.1- 5.3 [facility] Hemoglobin [Mass/volume] in Blood 13.9 g/dL 11.5-15.5 [facility] Hematocrit [Volume Fraction] of Blood by Automated count 42.0 % 3 6-45 [facility] Erythrocyte mean corpuscular volume [Entitic volume] by Auto mated count 95.3 fL 80-96 [facility] Erythrocyte mean corpuscular hemoglobin [Entitic mass] by Automated count 31.5 pg 27-33 [facility] Erythrocyte mean corpuscular hemoglobin concentration [Mass/volume] by Automated count 33.1 g/dL 32.0-36.0 [facility] distribution width [Ratio] by Automated count 14.5 % 11.5-14.5 [facility] Platelets [#/volume] in Blood by Automated count 301 10*3/uL 150-400 [facility] Differential cell count method - Blood [facility] Neutrophils/100 leukocytes in Blood by Automated count 76 % [facility] Lymphocytes/100 leukocytes in Blood by Automated count 16 % [facility] Monocytes/100 leukocytes in Blood by Automated count 7 % [facility] Eosinophils/100 leukocytes in Blood by Automated count 1 % [facility] Basophils/100 leukocytes in Blood by Automated count 0 % [facility] Neutrophils [#/volume] in Blood by Automated count 5.67 10*3/uL 1.8-7 .0 [facility] Lymphocytes [#/volume] in Blood by Automated count 1.21 10*3/uL 1.2-4 .0 [facility] Monocytes [#/volume] in Blood by Automated count 0.54 10*3/uL 0-0.8 [facility] Eosinophils [#/volume] in Blood by Automated count 0.10 10*3/uL 0-0.5 [facility] Basophils [#/volume] in Blood by Automated count 0.02 10*3/uL 0-0.2 [facility] Nucleated erythrocytes/100 leukocytes [Ratio] in Blood by Automated count 0 /100{WBCs} 0-0 [facility] ID Date Data Source [id number] 08/23/2020 10:22:26 AM [facility] Name Value Range Interpretation Code Description Data Joyce rce(s) Supporting Document(s) Albumin [Mass/volume] in Serum or Plasma by Bromocresol green (BCG) dye binding method 3.6 g/dL 3.5-5.2 [facility] Bilirubin.total [Mass/volume] in Serum or Plasma 0.2 mg/dL <1.2 [facility] Calcium [Mass/volume] in Serum or Plasma 9.3 mg/dL 8.6-10.0 [facility] Chloride [Moles/volume] in Serum or Plasma 107 mmol/L 98-107 [facility] Creatinine [Mass/volume] in Serum or Plasma 0.76 mg/dL 0.50-0.90 [facility] Glucose [Mass/volume] in Serum or Plasma 116 mg/dL 70-140 [facility] Alkaline phosphatase [Enzymatic activity/volume] in Serum or Plasma 117 U/L 35-104 H [facility] Potassium [Moles/volume] in Serum or Plasma 3.6 mmol/L 3.4-5.1 [facility] Protein [Mass/volume] in Serum or Plasma 6.8 g/dL 6.4-8.3 [facility] Sodium [Moles/volume] in Serum or Plasma 138 mmol/L 136-145 [facility] Aspartate aminotransferase [Enzymatic activity/volume] in Serum or Plasma 23 U/L <32 [facility] Urea nitrogen [Mass/volume] in Serum or Plasma 10 mg/dL 6-20 [facility] Osmolality of Serum or Plasma by calculation 286 mosm/kg 275-300 [facility] Creatinine/Urea nitrogen [Mass Ratio] in Serum or Plasma 13 [facility] Bicarbonate [Moles/volume] in Serum 23 mmol/L 22-29 [facility] Alanine aminotransferase [Enzymatic activity/volume] in Seru m or Plasma 32 U/L <33 [facility] Anion gap 3 in Serum or Plasma 8 mmol/L 8-15 [facility] Glomerular filtration rate/1.73 sq M pre dicted among non-blacks [Volume Rate/Area] in Serum or Plasma by Creatinine-based formula (MDRD) >6 0 [facility] Glomerular filtration rate/1.73 sq M pre dicted among blacks [Volume Rate/Area] in Serum or Plasma by Creatinine-based formula (MDRD) >60 [facility] ID Date Data Source [id number] 08/15/2020 02:29:50 PM EST [facility] Name Value Range Interpretation Code Description Data Joyce rce(s) Supporting Document(s) Leukocytes [#/volume] in Blood by Automated count 6.8 10*3/uL 4-10 [facility] Erythrocytes [#/volume] in Blood by Automated count 4.29 10*6/uL 4.1- 5.3 [facility] Hemoglobin [Mass/volume] in Blood 13.7 g/dL 11.5-15.5 [facility] Hematocrit [Volume Fraction] of Blood by Automated count 41.4 % 3 6-45 [facility] Erythrocyte mean corpuscular volume [Entitic volume] by Auto mated count 96.4 fL 80-96 H [facility] Erythrocyte mean corpuscular hemoglobin [Entitic mass] by Automated count 32.0 pg 27-33 [facility] Erythrocyte mean corpuscular hemoglobin concentration [Mass/volume] by Automated count 33.2 g/dL 32.0-36.0 [facility] E[facility]th[facility] distribution width [Ratio] by Automated count 14.5 % 11.5-14.5 [facility] Platelets [#/volume] in Blood by Automated count 295 10*3/uL 150-400 [facility] Differential cell count method - Blood [facility] Neutrophils/100 leukocytes in Blood by Automated count 67 % [facility] Lymphocytes/100 leukocytes in Blood by Automated count 24 % [facility] Monocytes/100 leukocytes in Blood by Automated count 6 % [facility] Eosinophils/100 leukocytes in Blood by Automated count 2 % [facility] Basophils/100 leukocytes in Blood by Automated count 1 % [facility] Neutrophils [#/volume] in Blood by Automated count 4.60 10*3/uL 1.8-7 .0 [facility] Lymphocytes [#/volume] in Blood by Automated count 1.60 10*3/uL 1.2-4 .0 [facility] Monocytes [#/volume] in Blood by Automated count 0.41 10*3/uL 0-0.8 [facility] Eosinophils [#/volume] in Blood by Automated count 0.11 10*3/uL 0-0.5 [facility] Basophils [#/volume] in Blood by Automated count 0.04 10*3/uL 0-0.2 [facility] Nucleated erythrocytes/100 leukocytes [Ratio] in Blood by Automated count 0 /100{WBCs} 0-0 [facility] ID Date Data Source [id number] 08/15/2020 03:12:08 PM [facility] Name Value Range Interpretation Code Description Data Joyce rce(s) Supporting Document(s) Albumin [Mass/volume] in Serum or Plasma by Bromocresol green (BCG) dye binding method 3.7 g/dL 3.5-5.2 [facility] Bilirubin.total [Mass/volume] in Serum or Plasma 0.2 mg/dL <1.2 [facility] Calcium [Mass/volume] in Serum or Plasma 9.4 mg/dL 8.6-10.0 [facility] Chloride [Moles/volume] in Serum or Plasma 103 mmol/L 98-107 [facility] Creatinine [Mass/volume] in Serum or Plasma 0.68 mg/dL 0.50-0.90 [facility] Glucose [Mass/volume] in Serum or Plasma 92 mg/dL 70-140 [facility] Alkaline phosphatase [Enzymatic activity/volume] in Serum or Plasma 179 U/L 35-104 H [facility] Potassium [Moles/volume] in Serum or Plasma 3.7 mmol/L 3.4-5.1 [facility] Protein [Mass/volume] in Serum or Plasma 7.2 g/dL 6.4-8.3 [facility] Sodium [Moles/volume] in Serum or Plasma 133 mmol/L 136-145 L [facility] Aspartate aminotransferase [Enzymatic activity/volume] in Serum or Plasma 133 U/L <32 H [facility] Urea nitrogen [Mass/volume] in Serum or Plasma 6 mg/dL 6-20 [facility] Osmolality of Serum or Plasma by calculation 273 mosm/kg 275-300 L [facility] Creatinine/Urea nitrogen [Mass Ratio] in Serum or Plasma 9 [facility] Bicarbonate [Moles/volume] in Serum 25 mmol/L 22-29 [facility] Alanine aminotransferase [Enzymatic activity/volume] in Seru m or Plasma 266 U/L <33 H [facility] Anion gap 3 in Serum or Plasma 5 mmol/L 8-15 L [facility] Glomerular filtration rate/1.73 sq M pre dicted among non-blacks [Volume Rate/Area] in Serum or Plasma by Creatinine-based formula (MDRD) >6 0 [facility] Glomerular filtration rate/1.73 sq M pre dicted among blacks [Volume Rate/Area] in Serum or Plasma by Creatinine-based formula (MDRD) >60 [facility] ID Date Data Source [id number] 08/13/2020 11:58:09 AM EST [facility] Name Value Range Interpretation Code Description Data Joyce rce(s) Supporting Document(s) Progress Note [facility] GWXGLh3vStHXUhIf50/CQDgsEBGal1FeAGawLIn7KOxnTSBvX2CnOGY7cA3cLIA8SOdDArGdWtCgBUW3 lbm LwHluXAuTcGFEcOpiZEbXtNBcwGshjfXBkLF1EtSM4PZTzP74tPUGwYLHaJ6EeKKYjWjH+Iw9KZOCfmT JtND6XFikE0Y0pm5mRBv2eeD/UXrNF5UuMk0f+egKZ88YUZ+Z8xGnhZdRSqPvtwaBOxBRz/N+Z6HBfsz q4BlOhMfI04EYTfbwdQ/eqjQ7gUJP++6/YiwIppSj/ DU9RmQvXV/JST2fNLW4979x/okngAU/AXoBPNN9seqjAL4RaHMTg1YmEB4OvnEaAAwgJVLgOb07+Sayra/ srlUB3Ynx32l3q513JqpzzLe62OJ8C/0+KATHIE/ocsGbRGazLv9TwnhblqyZA5oCvW2ABGqwUqDwYyyY5q [file] Xk3JSdQ0FLZ2pLKoZg6NCAO5SUZCPiQoOZ8WEQd= ID Date Data Source [id number] 08/08/2020 09:55:48 AM EST [facility] Name Value Range Interpretation Code Description Data Joyce e(s) Supporting Document(s) Leukocytes [#/volume] in Blood by Automated count 9.2 10*3/uL 4-10 [facility] Erythrocytes [#/volume] in Blood by Automated count 4.24 10*6/uL 4.1- 5.3 [facility] Hemoglobin [Mass/volume] in Blood 13.9 g/dL 11.5-15.5 [facility] Hematocrit [Volume Fraction] of Blood by Automated count 41.2 % 3 6-45 [facility] Erythrocyte mean corpuscular volume [Entitic volume] by Auto mated count 97.1 fL 80-96 H [facility] Erythrocyte mean corpuscular hemoglobin [Entitic mass] by Automated count 32.8 pg 27-33 [facility] Erythrocyte mean corpuscular hemoglobin concentration [Mass/volume] by Automated count 33.8 g/dL 32.0-36.0 [facility] Erythrocyte distribution width [Ratio] by Automated count 14.1 % 11.5-14.5 [facility] Platelets [#/volume] in Blood by Automated count 270 10*3/uL 150-400 [facility] Differential cell count method - Blood [facility] Neutrophils/100 leukocytes in Blood by Automated count 72 % [facility] Lymphocytes/100 leukocytes in Blood by Automated count 18 % [facility] Monocytes/100 leukocytes in Blood by Automated count 8 % [facility] Eosinophils/100 leukocytes in Blood by Automated count 1 % [facility] Basophils/100 leukocytes in Blood by Automated count 1 % [facility] Neutrophils [#/volume] in Blood by Automated count 6.67 10*3/uL 1.8-7 .0 [facility] Lymphocytes [#/volume] in Blood by Automated count 1.62 10*3/uL 1.2-4 .0 [facility] Monocytes [#/volume] in Blood by Automated count 0.71 10*3/uL 0-0.8 [facility] Eosinophils [#/volume] in Blood by Automated count 0.10 10*3/uL 0-0.5 [facility] Basophils [#/volume] in Blood by Automated count 0.12 10*3/uL 0-0.2 [facility] Nucleated erythrocytes/100 leukocytes [Ratio] in Blood by Automated count 0 /100{WBCs} 0-0 [facility] ID Date Data Source [id number] 08/08/2020 10:21:22 AM EST [facility] Name Value Range Interpretation Code Description Data Joyce rce(s) Supporting Document(s) Albumin [Mass/volume] in Serum or Plasma by Bromocresol green (BCG) dye binding method 3.8 g/dL 3.5-5.2 [facility] Bilirubin.total [Mass/volume] in Serum or Plasma <1.2 [facility] Calcium [Mass/volume] in Serum or Plasma 9.7 mg/dL 8.6-10.0 [facility] Chloride [Moles/volume] in Serum or Plasma 105 mmol/L 98-107 [facility] Creatinine [Mass/volume] in Serum or Plasma 0.68 mg/dL 0.50-0.90 [facility] Glucose [Mass/volume] in Serum or Plasma 96 mg/dL 70-140 [facility] Alkaline phosphatase [Enzymatic activity/volume] in Serum or Plasma 113 U/L 35-104 H [facility] Potassium [Moles/volume] in Serum or Plasma 3.8 mmol/L 3.4-5.1 [facility] Protein [Mass/volume] in Serum or Plasma 7.3 g/dL 6.4-8.3 [facility] Sodium [Moles/volume] in Serum or Plasma 140 mmol/L 136-145 [facility] Aspartate aminotransferase [Enzymatic activity/volume] in Serum or Plasma 48 U/L <32 H [facility] Urea nitrogen [Mass/volume] in Serum or Plasma 6 mg/dL 6-20 [facility] Osmolality of Serum or Plasma by calculation 287 mosm/kg 275-300 [facility] Creatinine/Urea nitrogen [Mass Ratio] in Serum or Plasma 9 [facility] Bicarbonate [Moles/volume] in Serum 23 mmol/L 22-29 [facility] Alanine aminotransferase [Enzymatic activity/volume] in Seru m or Plasma 52 U/L <33 H [facility] Anion gap 3 in Serum or Plasma 12 mmol/L 8-15 [facility] Glomerular filtration rate/1.73 sq M pre dicted among non-blacks [Volume Rate/Area] in Serum or Plasma by Creatinine-based formula (MDRD) >6 0 [facility] Glomerular filtration rate/1.73 sq M pre dicted among blacks [Volume Rate/Area] in Serum or Plasma by Creatinine-based formula (MDRD) >60 [facility] ID Date Data Source [id number] 07/26/2020 04:19:54 PM [facility] Name Value Range Interpretation Code Description Data Joyce rce(s) Supporting Document(s) Progress Note [facility] GYQPSv1gDlENPdVo63/TIYpfKWWjl3DmBEojSVy4XRvjWMObN1HcTAD2xV7rZRR8RQfRQeDeQuMiFkH8 [facility] KlOnaOZzYkWEQtHtlDWiUjARsxNdmlfDClCW3DnZK2JDKjX59jQQIsRTZnE9TkWNIwTKS+Tx7EUOQtgN VjQJ5LYkwH2W5znhc6Iz3dlo6MiqWwRj5VSVQzoJ40D487ZgXpvCy49b4zy3L5bzAbBk8Mff6/vrtL7k lJfpKlPEXi5ANnIjPyAYFNSHTsUMAyd/6NC6qhkALT n/ZjkmpxPBa//11BsSc7293aOFWWF3D3SdZEiq+Buj3g+3EOrYTp3NyPe5XbfPIiHD7fXfwRu7z/Z8e/ FbZFJ9W1rput5y976Lmww95KlXyEXau1+KATHIE/zJeGGXKblYyPIgspTrPklWIwnxVbjMvY3rTndCiapnw [file] 29J8X6d7/X6wD6FG/N/y5+TPNAHY/AUTO BODY ESTIMATOR/+hlq+UfbQ15L/pcvPTZ72B3iP8hjtUG39yuZna/pM38PT3cn [file] ICAgICAgICAgICAgICAgICAgICAgICAgICAgICAgIC AgICAgICAgICAgICAgICAgICAgICAgICAgICAgICAgICAgICAgDQogICAgICAgICAgICAgICAgICAgIC AgICAgICAgICAgICAgICAgICAgICAgICAgICAgICAgICAgICAgICAgICAgICAgICAgICAgICAgICAgIC AgICAgICAgICAgICAgICAgICAgDQogICAgICAgICAg ICAgICAgICAgICAgICAgICAgICAgICAgICAgICAgICAgICAgICAgICAgICAgICAgICAgICAgICAgICAg ICAgICAgICAgICAgICAgICAgICAgICAgICAgICAgDQogICAgICAgICAgICAgICAgICAgICAgICAgICAg ICAgICAgICAgICAgICAgICAgICAgICAgICAgICAgIC AgICAgICAgICAgICAgICAgICAgICAgICAgICAgICAgICAgICAgICAgDQogICAgICAgICAgICAgICAgIC AgICAgICAgICAgICAgICAgICAgICAgICAgICAgICAgICAgICAgICAgICAgICAgICAgICAgICAgICAgIC AgICAgICAgICAgICAgICAgICAgICAgDQogICAgICAg ICAgICAgICAgICAgICAgICAgICAgICAgICAgICAgICAgICAgICAgICAgICAgICAgICAgICAgICAgICAg ICAgICAgICAgICAgICAgICAgICAgICAgICAgICAgICAgDQogICAgICAgICAgICAgICAgICAgICAgICAg ICAgICAgICAgICAgICAgICAgICAgICAgICAgICAgIC AgICAgICAgICAgICAgICAgICAgICAgICAgICAgICAgICAgICAgICAgICAgDQogICAgICAgICAgICAgIC AgICAgICAgICAgICAgICAgICAgICAgICAgICAgICAgICAgICAgICAgICAgICAgICAgICAgICAgICAgIC AgICAgICAgICAgICAgICAgICAgICAgICAgDQogICAg ICAgICAgICAgICAgICAgICAgICAgICAgICAgICAgICAgICAgICAgICAgICAgICAgICAgICAgICAgICAg ICAgICAgICAgICAgICAgICAgICAgICAgICAgICAgICAgICAgDQogICAgICAgICAgICAgICAgICAgICAg ICAgICAgICAgICAgICAgICAgICAgICAgICAgICAgIC IsVPJbPKNpPATgQVMyZGBwXCEbMMKdZTOvPICiYHJrGWGmFIXzURKlOVZnLKLfMPb8C9ntMFAsUMVpCI 2yLKt1Ji9+QOnRXsZyMCP9soScpD6IPY7mv7YdFZgsMKXwj5XtCCa8DI8NDNOcLBjsXT5CVHytsv0CVB SrSSQefMITe4moMaCuOIC7SLOvUihcNP5ZUKEaC0xo cbFzTQTwUGTEIAjvBRHLZAYaOTMqMtUyCmQyFZHvNSLaHEROAWV7SNBjTlHmKKFkUBUgQfRvBJKVRVBq EERyCsNcVYvaGP2Mm3XxoMG4WYd+Dk2LOX6ec8SlOCsmJJEyUP6utz2AGFpVMnZlK8NwkeB4ESWxBZAy Nc3QZXNuYBBgbFB7ZKGsMEPDVkGuV4ZhyH44WTMIFc 4+UNvpyjZgLrrVLjZdHSEig5QbSZu5VM6SKXCaUQm9hSZrUOKoG6Ztf5BhQt73STQuWsleTbPzxeLaID SVPARafwTxTXIFOLYjmOIrJd5zNE4jMRNeXEX2VqGjQXSMFT5VWGLmLQKdzEYvSZXjCCLIFN2WIEtlBC X9YSKuqgXclLYpFFjvRO5GMDSixyWeAyijRIYBPJk+ Xk1EBF0oz8TuDIm1ZEDrp9HbJYa9KE4HSATlKJdrIMFuAM7tn8VpT3I0WhB0iUWiA0ovfazoO0OxkdDh ikArIALmRIVuGR7XON2TUI2XKLBaHUwtZC2WEHH4MRe9ZnN1DYZnIMRhUZIhWZ7oQDydME2MLDl1M2Wo W3EQDPZmUCCFBHCedNZ7GFEBZe0NU8HRSnqDPZECLo 1MVaMoR3PLL2mVF23PFQ1ISRI+PiANCj4+XRpkwuYxWymRTgNgVPGkl2ZsKRh8EU5UHWLtJLalJG4KHZ CjwO8mGXyvPT4OLcIvVhWtXYRPHfJoY17vfOXvDUd1V6XtPgNsSIQyXecuQTGjPSgoOiYoOIWmCuMjQK ogID4+ID4+LNubEJ9DOYgcbfZsHPNeYd3QRAGhZBJi VY4gJBAwTQCkS8I8pRqvRVBVVfReF6eoneimZN5wNNIwC116sMdwphXkVAO3BJCoPz8NZRBkNZE8WHEa lGRzWhuuQTMXFNcrKJ1TgETxCRY2jQ8tUCruYMRhZJHqC7yRHpIwnYtsQZ96xHhnscMxeVUoFNy+Pg0K DU9qf9RyEBc2ojImPRecWDMbNSfeDIQzHBPeHRFnGE W5MNJ6EVLYRhNvMMYiVNNpCFxnZARoEHWmfy0BBMNkURC0KyE5QKVxZQFdNZJyTUueQPKfSPB5XXZ4TJ XiTQJfDH4MXeKbFNIaBYNlDIdaQBDqEABwul5QEIDyGUEcCfU7FJHjSDOvRGSrEYndNAYqHLE6QPSzOE EmBFQnZA9XUaOdMKZtDCZ3MTAvIOXaJTOffs8SQJKj EWKuOpG3MRUpLXQpTHKuUKvxZNUkNDX1XTY0QBHiSLMvPG2HHpBySDOlHBR6DWZkWEWlAZQftl3AJIRo JNWoWXhwPLTcFHRhOANqVVlaPIRqIVI5TZR0JYDeBPTeFY4ZQfMuKPCvSRGmCtKbBVMfSRIowe2CBTXw UDPgTDXvUFMdYUBvWDOxYZyyANLgUMD5PbU4NTLkGC BjQT2VTpOvROMpWnY8NateUZMxNFIsqy5PFDTlJUAnDSDsEOIsZBSbMLCkZXuyUGMiTMZ1PGpwGBXpKE FhXW4SOdCtNXEgHxEkZpIrTGFbHEClwc2BCUIeDTEkQUk3VZIeDMCmVWHwGDeyTXJxWTR9SJEkFBMfPS GwIA4IWoNnGFJlNlG8FYQjNGUqFUBwhv0YJLBtLOKb YClyPSZrWAIoQPYaRNjwJBReZHJnNOI2NGHpTYGdNE3GTiIhDNFkFkQhWcMaNVNuLQLbxc4VJXBsSQTp XgH2EZRoEPZyGHRoOQueXGXwOXIzWcG3EBXqNXFpNK0ERsTjESVgXuZ1VZRkSVWeACRwup3GOFXpPUMp WwM8UZOrMRUySSXnPEniLHYgHKC1HAY0QTYlQTWyCY 4DXrWfJMWdABTiGDFnYSSxUISqhd4WRSOtCCP0VZF0RqNfYJJfZWUvPKhsIJFiMWM4JVYmXHPwPGHjBJ 1GMbDuZMFaXVE8HXhxHVReYEIgeo0ALRLuTRA2LxmgZwNsLXMgZSJnPNdnRSRaHPB8VBeoSMZbRVXiDH 0YOoOfTZCaQJdqQsveKPYlGGTnnn1UYTJxTWW2ZmS7 OAZnRYLlQIIqEZfvBWCcOGO7HJr1YPAlHELhBD7VYcMbBNRzRMdbVWpeIWUiPRKidy2ULXNwZLJ1YZS4 IpMcBJGpPUGdSQq1pxOfqAYoDEd0MK3VE0IjijOxXWKOVg1Vu621XZZcBTFmEw0FK1iiKv3lNZRySQJQ Pp7LXKl0WTo8AbVwUTKuCMXiYTS6PCInYmR7CXTpFn ZjTrK8FnQ+FJo5DpNvIzKqNhDvEGPkNofnU6QaVmUyHoTsXOEoMIhqPR3rHUKEPi1+DQpzdGFydHhyZW KHWcB1MBFvTAetPETSKq6R ID Date Data Source [id number] 07/18/2020 12:23:04 PM [facility] Name Value Range Interpretation Code Description Data Joyce rce(s) Supporting Document(s) Progress Note [facility] GYEJBk3oKhSHBqHh40/ZVKtmJNYac4CmIKcqOKy0CHecRTKsB1ZrLQJ3yF9qJJC1SDfEQrQtXyLfMlZi lbm [file] DQo+Yn2Te4LixiT3npBlGDk8UFJwADurQPDBLt3Z ID Date Data Source [id number] 07/18/2020 09:22:01 AM EST [facility] Name Value Range Interpretation Code Description Data Joyce rce(s) Supporting Document(s) Leukocytes [#/volume] in Blood by Automated count 7.9 10*3/uL 4-10 [facility] Erythrocytes [#/volume] in Blood by Automated count 3.96 10*6/uL 4.1- 5.3 L [facility] Hemoglobin [Mass/volume] in Blood 13.4 g/dL 11.5-15.5 [facility] Hematocrit [Volume Fraction] of Blood by Automated count 39.2 % 3 6-45 [facility] Erythrocyte mean corpuscular volume [Entitic volume] by Auto mated count 98.8 fL 80-96 H [facility] Erythrocyte mean corpuscular hemoglobin [Entitic mass] by Automated count 33.8 pg 27-33 H [facility] Erythrocyte mean corpuscular hemoglobin concentration [Mass/volume] by Automated count 34.2 g/dL 32.0-36.0 [facility] Erythrocyte distribution width [Ratio] by Automated count 14.0 % 11.5-14.5 [facility] Platelets [#/volume] in Blood by Automated count 294 10*3/uL 150-400 [facility] Differential cell count method - Blood [facility] Neutrophils/100 leukocytes in Blood by Automated count 69 % [facility] Lymphocytes/100 leukocytes in Blood by Automated count 20 % [facility] Monocytes/100 leukocytes in Blood by Automated count 9 % [facility] Eosinophils/100 leukocytes in Blood by Automated count 1 % [facility] Basophils/100 leukocytes in Blood by Automated count 1 % [facility] Neutrophils [#/volume] in Blood by Automated count 5.36 10*3/uL 1.8-7 .0 [facility] Lymphocytes [#/volume] in Blood by Automated count 1.61 10*3/uL 1.2-4 .0 [facility] Monocytes [#/volume] in Blood by Automated count 0.72 10*3/uL 0-0.8 [facility] Eosinophils [#/volume] in Blood by Automated count 0.08 10*3/uL 0-0.5 [facility] Basophils [#/volume] in Blood by Automated count 0.08 10*3/uL 0-0.2 [facility] Nucleated erythrocytes/100 leukocytes [Ratio] in Blood by Automated count 0 /100{WBCs} 0-0 [facility] ID Date Data Source [id number] 07/18/2020 09:52:34 AM EST [facility] Name Value Range Interpretation Code Description Data Joyce rce(s) Supporting Document(s) Albumin [Mass/volume] in Serum or Plasma by Bromocresol green (BCG) dye binding method 3.8 g/dL 3.5-5.2 [facility] Bilirubin.total [Mass/volume] in Serum or Plasma 0.2 mg/dL <1.2 [facility] Calcium [Mass/volume] in Serum or Plasma 9.5 mg/dL 8.6-10.0 [facility] Chloride [Moles/volume] in Serum or Plasma 107 mmol/L 98-107 [facility] Creatinine [Mass/volume] in Serum or Plasma 0.60 mg/dL 0.50-0.90 [facility] Glucose [Mass/volume] in Serum or Plasma 103 mg/dL 70-140 [facility] Alkaline phosphatase [Enzymatic activity/volume] in Serum or Plasma 108 U/L 35-104 H [facility] Potassium [Moles/volume] in Serum or Plasma 3.7 mmol/L 3.4-5.1 [facility] Protein [Mass/volume] in Serum or Plasma 7.0 g/dL 6.4-8.3 [facility] Sodium [Moles/volume] in Serum or Plasma 137 mmol/L 136-145 [facility] Aspartate aminotransferase [Enzymatic activity/volume] in Serum or Plasma 21 U/L <32 [facility] Urea nitrogen [Mass/volume] in Serum or Plasma 5 mg/dL 6-20 L [facility] Osmolality of Serum or Plasma by calculation 282 mosm/kg 275-300 [facility] Creatinine/Urea nitrogen [Mass Ratio] in Serum or Plasma 8 [facility] Bicarbonate [Moles/volume] in Serum 23 mmol/L 22-29 [facility] Alanine aminotransferase [Enzymatic activity/volume] in Seru m or Plasma 19 U/L <33 [facility] Anion gap 3 in Serum or Plasma 8 mmol/L 8-15 [facility] Glomerular filtration rate/1.73 sq M pre dicted among non-blacks [Volume Rate/Area] in Serum or Plasma by Creatinine-based formula (MDRD) >6 0 [facility] Glomerular filtration rate/1.73 sq M pre dicted among blacks [Volume Rate/Area] in Serum or Plasma by Creatinine-based formula (MDRD) >60 [facility] ID Date Data Source [id number] 07/13/2020 04:41:11 PM [facility] Name Value Range Interpretation Code Description Data Joyce rce(s) Supporting Document(s) Progress Note [facility] AVBRBi1zTlFOIlNb33/OKUbfNFCgz7SwNZnsRMk9XGcfMKDvP5XlRPD6hQ4dSEG6WHrJWpUeLiQsGzB1 m [file] fjMEJ6AoAzCwL+AZ3fRVc+Ai2Ln9KofzK5ntUzVHrmSCc9Cx5PZVEUK1CFUr== ID Date Data Source [id number] 07/11/2020 05:31:09 PM [facility] Name Value Range Interpretation Code Description Data Joyce rce(s) Supporting Document(s) Progress Note [facility] BUPIFs2hEaUPQbIi38/DVOccOVBjb5ToVHkkHIj3TCrvXILjI6IjFCV4fP8aSIJ5YFcZOsGxFeMrUiKz lbm [file] ICAgICAgICAgICAgICAgICAgICAgICAgICAgICAgIC HtAUMvCHQtQLCzVARqESAoGBFvCKXyGFGiMLScEYVuDDQjJHQuVFAkESMwGFTdUULnWLZjOE7AFRMdRL AgICAgICAgICAgICAgICAgICAgICAgICAgICAgICAgICAgICAgICAgICAgICAgICAgICAgICAgICAgIC AgICAgICAgICAgICAgICAgICAgICAgICAgICAgICAg GPQuGG2UYETkZOTvSDRzFLHgBOTrCPMxCTMpGLLlPVIrARHcLEAgFDQbBVBhFKSbGVMgNOSgXQGrSRLg SCMyBTHbVCCoNQDcOWGpEBKcHYVoVGFhHPZeLRWdRANsUDPaPNZwOTBgWIIdCF4PLWNlFDOmPRFvBIHu ICAgICAgICAgICAgICAgICAgICAgICAgICAgICAgIC JwTBJnNEJcRRJlFWCfMCXfBKMdPEQhMIWqYMZkAPVuDEAzEMAiVLTrKTPgXDBtZPEvVYZbUIHiCV8NZS AgICAgICAgICAgICAgICAgICAgICAgICAgICAgICAgICAgICAgICAgICAgICAgICAgICAgICAgICAgIC AgICAgICAgICAgICAgICAgICAgICAgICAgICAgICAg BJVnCNOfGM3ZPRBaJQXsKUGyWUDiRXSpCETyBBBaSJKsEAGdVTZdVWBmQPFdGWLgGCNlHLEvKYRySRJv IKDjEKGqOHRxMUOmASLoUUUiVRDjXHQtQSEmPAWiGIAtAHYcHSOlLKRvHXJzHUOpHW7ROEQfFIQbPPVt ICAgICAgICAgICAgICAgICAgICAgICAgICAgICAgIC AgICAgICAgICAgICAgICAgICAgICAgICAgICAgICAgICAgICAgICAgICAgICAgICAgICAgICAgICAgIA 0KICAgICAgICAgICAgICAgICAgICAgICAgICAgICAgICAgICAgICAgICAgICAgICAgICAgICAgICAgIC AgICAgICAgICAgICAgICAgICAgICAgICAgICAgICAg RMHtXXMxTMNqXD8JEWRaPBQuSQBzAVYyVLUvFEJnBNOqXPRkMYByMDSjYGPdWFJtGSVyHKFkDFKoVEWc LBXrKDWaCAJgYFXcKPWySMCxAEZrQCMzXHGuHCOkVKJmZBLqHLAbSGDgWTMiHEImKHFhLG0CDC83qNMc y5D4EHAiWS0lggc/Ii9AAPnoapFmsLHgAE9CEfGpIF 0gos3WDpBlCJ0wvf3HRCaJUmTfR9T8cTMgHCZwHHLMSsBiB92iREbiGt47BDxnDMNlPhFzCAw1Oo0DKr RwS0tzFUKyVtA5URFrLeZ9CPSzSfA0JMMnUuNbKEJcMRJhJVBuGBXTGYZ3UVUuMoHuHmOtUBKzVWukOU AGOMBoFWWrAyOiGNueTT4Be0VubSV2FSa+Gq4EZX7q r3DlCKs8DxKqLC4lze5AHKjFIcFoS7NytfD1NLM8JNGsEa6MOKEbKGVsyPU0MdOhGSYXVuIyV2UnrM62 IDENCj4+IHekbdLnRnoWFrF3NUEnk0TkZHh9WB7NEHNvIAs4gTXnPTEpD4Evu5EyBn63GJNuCzqmOzTd mp8jEGKgHTThVYwxZEUuTCUmQWJtEM0rKRByIGSpSb KzHSYTHU7TXTUwQJCsmVGsNMKjEMRHEN8DJDqhOVU7HCFeonApnLFjTKeoKV0GYAKdlaAiCNZwZOMEKR o+Pv2KYG6kj1QuMLf7TRXwCI8rjt3VDBeHWeGyS3S5aGVaM0Z7GOxaEe3WRCNhKCBxCFZdDHDJOGzzTX 5GPR2accU3KW1TbHZeRSOhPBIlwIFtVBx4E25noKKs RZymML2ISVG+Ron+Iw9RZMIxQCKlYYMkDiQvDCOZXbVlW8UoR6PGm0RjE0CzVK28wLjjcsAgXSwvIR1X YH1iQCDpWQLUHB1XiXCwtU5dscY1MiIkXGZLJfTaK49mlOZsJVSzENQ5OLMvTn5TRNGzU2BrnxFhvHdt fxIlQLOlONYEBB5RIIroavGccFWogOgkSA30uWiyHG 7IBs2ZWuKaZV1blu1QpBDkFr1EOAY6UU4VVQXwKYNmTAUxFRP2HKUhTkVbDWtrNVNxKROtGWV8EAJrWE DrJE5MRuCuVMNvYpu0VVBaQAMsZIZxfw2TMCQgJIM6KVM6CvVdEFQyXWNfZOtoIEOwZKSeNLR5BPObXC QiIQ1PLhUwZGRxVZP6PYEtGHEcYDDizd0XUEJgSYZk EZd9WwYlKLYnALAzCKndKFIoHUO5IBO8JQHvANPaVS6ZEkXbKTNdZCYlCWyvSREqGKUbvl0LFNRlRUIo AiG8EVDmVKLkIHIcYCusCUXpSDOoAJgiSMRpMHYmOB2LNkYbZDPfYAP5CtPgUQDyOPNtnz8ZBTQtGDIc XGN3AyTuUDVcOLDqMMbrJKEfAVV7WjF8SUPfAEYdYQ 1CCwEbHKXkNEy5ZpNzTSAdWNXhxj7QEYOuLBLiZiH1AQNgVDPcVHQfJFomPJZvBVIsQqY7JTVoXLLyOS 1TDhVeXVBdZzkjKJjbIXBuJCZfwd0NLGOzPQYsZmTxTMBgUBAcIDFbUYqgTNNrEWLrECK1AWNpBMIpAM 0RXpBrMMJoFqF5IwAfXNVtPSWmji1ICYJdVSOqFuw9 GBXoOZJbYNGkCKgtBCFcNSDpFSt6VTUjLAAqTY8AGfAhAZGcTlW1DmZvHNYpBGAydf0NTRScELYrJSOp HYIfACMjEVDyGYtwFGJpDKG1SgO6PHKiIMFwQP8PEkRyMKArIfDfOgMuKLFuLWHann5QYZOdLZSuFUR5 TLOdUNXnOTAyYIpkJWDtRES5UpWuSLTsJMOuTS5OKn AhKNRgBEvnZSQpVJTzGTHooa2MDBEjFKV0NhKyQBOtRHOkKCVgOXpvXVEkTIP2KcJ0OBAmGYNrYS5ZRm QvMRLgBKq7AwwkVCJhMJTtda6KQEScLNJ9NIRrLtGjVCDnOUIuRPdtOFNlMFC8ANX9JHNhCZRsEV9APs UbDYHcYHrxGAyrLWXmUTVujs6AHLYmYXW8PCSlGDNq PEYnKYAtLYfzEKHcYFo4IbJrWABfUUQqGE9MCwSbTEUzLmarQzNiJZFsGZOzru5RSGMuRVH0ByP4GEFi ZBKqBJKnYOtjYUAeLSy5SXRtUKAvSDBpNB6ASrJgBEIoDqn4JbJoJLHqKKPsky1YPIZyLKT7YWSkNHOs RIMlHWDiOMkjTQOyEJx6Mwz6NTGgHKTdUR2UAmTlCB ZsNkm4LuFvVZZrZOWtwh9NKBHbSUN9VKPcLkDeMGToXOUvZGmzSMJgCDsgAFC8MYHwEKRvOY3BVtQhRC MoHMQ1IKHwNOVcCMGqrq8VPKSoVGR7QdWuYLLgAEZgZVWeACy2ppVgfAXyJWo1ZB2WV6ShsyMqEMdBAw 6Pe454NAM5IUJdYf5RP3jqIg4vWYWbMTBLHk2BLSb3 Z9CyHhE6JiP4HxIcGAExJCY6TzOfGBzyAQT7CWd1ITM+YTcxHnV8ATexIYH1PoG7TOE4HuCaPdD7KCQn YgqaXfM6TU6iCVJRBb4+HKcdoSMrfItyOLJJZwxmPqa0SSfsDSEWEk9Z ID Date Data Source [id number] 07/09/2020 04:20:48 PM [facility] US BREAST INCLUDING AXILLA COMPLETE LEFT [id number] RESULTInterpreted by:Stevie Wolf MDTARGETED LEFT BREAST ULTRASOUNDHISTORY: Assessment of left breast cancer while on neoadjuvant chemotherapy.COMPARISON: Breast ultrasounds dating back to 02/05/2020FINDINGS:A 1.2 x 1.1 x 0.9 cm irregular hypoechoic mass at 11:00, 5 cm from the nipple representing known breast cancer with adjacent biopsy clip marker.An irregular 0.5 x 0.4 x 0.7 cm hypoechoic mass is seen at 11:00, 3 cm from the nipple.The mass seen at 11:00, 4 cm from the nipple is no longer visualized.The vague irregular hypoechoic region in the lower outer breast is not visualized on the current exam.IMPRESSION:Interval decrease in size of the known left breast cancer and likely satellite lesion.BI-RADS Category 6 - proven malignancy - appropriate action should be taken.This document has been electronically signed by Stevie Wolf MD on 07/09/2020 4:18 PM Name Value Range Interpretation Code Description Data Joyce rce(s) Supporting Document(s) ID Date Data Source [id number] 07/03/2020 01:48:51 PM [facility] Name Value Range Interpretation Code Description Data Joyce rce(s) Supporting Document(s) Leukocytes [#/volume] in Blood by Automated count 5.3 10*3/uL 4-10 [facility] Erythrocytes [#/volume] in Blood by Automated count 3.60 10*6/uL 4.1- 5.3 L [facility] Hemoglobin [Mass/volume] in Blood 12.4 g/dL 11.5-15.5 [facility] Hematocrit [Volume Fraction] of Blood by Automated count 36.0 % 3 6-45 [facility] Erythrocyte mean corpuscular volume [Entitic volume] b y Automated count 100.0 fL 80-96 H [facility] Erythrocyte mean corpuscular hemoglobin [Entitic mass] by Automated count 34.4 pg 27-33 H [facility] Erythrocyte mean corpuscular hemoglobin concentration [Mass/volume] by Automated count 34.4 g/dL 32.0-36.0 [facility] Erythrocyte distribution width [Ratio] by Automated count 14.5 % 11.5-14.5 [facility] Platelets [#/volume] in Blood by Automated count 218 10*3/uL 150-400 [facility] Differential cell count method - Blood [facility] Neutrophils/100 leukocytes in Blood by Automated count 65 % [facility] Lymphocytes/100 leukocytes in Blood by Automated count 26 % [facility] Monocytes/100 leukocytes in Blood by Automated count 7 % [facility] Eosinophils/100 leukocytes in Blood by Automated count 1 % [facility] Basophils/100 leukocytes in Blood by Automated count 1 % [facility] Neutrophils [#/volume] in Blood by Automated count 3.44 10*3/uL 1.8-7 .0 [facility] Lymphocytes [#/volume] in Blood by Automated count 1.39 10*3/uL 1.2-4 .0 [facility] Monocytes [#/volume] in Blood by Automated count 0.38 10*3/uL 0-0.8 [facility] Eosinophils [#/volume] in Blood by Automated count 0.07 10*3/uL 0-0.5 [facility] Basophils [#/volume] in Blood by Automated count 0.05 10*3/uL 0-0.2 [facility] Nucleated erythrocytes/100 leukocytes [Ratio] in Blood by Automated count 0 /100{WBCs} 0-0 [facility] ID Date Data Source [id number] 07/03/2020 02:19:06 PM [facility] Name Value Range Interpretation Code Description Data Joyce rce(s) Supporting Document(s) Albumin [Mass/volume] in Serum or Plasma by Bromocresol green (BCG) dye binding method 3.9 g/dL 3.5-5.2 [facility] Bilirubin.total [Mass/volume] in Serum or Plasma 0.2 mg/dL <1.2 [facility] Calcium [Mass/volume] in Serum or Plasma 9.3 mg/dL 8.6-10.0 [facility] Chloride [Moles/volume] in Serum or Plasma 106 mmol/L 98-107 [facility] Creatinine [Mass/volume] in Serum or Plasma 0.68 mg/dL 0.50-0.90 [facility] Glucose [Mass/volume] in Serum or Plasma 98 mg/dL 70-140 [facility] Alkaline phosphatase [Enzymatic activity/volume] in Serum or Plasma 163 U/L 35-104 H [facility] Potassium [Moles/volume] in Serum or Plasma 3.7 mmol/L 3.4-5.1 [facility] Protein [Mass/volume] in Serum or Plasma 6.7 g/dL 6.4-8.3 [facility] Sodium [Moles/volume] in Serum or Plasma 137 mmol/L 136-145 [facility] Aspartate aminotransferase [Enzymatic activity/volume] in Serum or Plasma 160 U/L <32 H [facility] Urea nitrogen [Mass/volume] in Serum or Plasma 5 mg/dL 6-20 L [facility] Osmolality of Serum or Plasma by calculation 280 mosm/kg 275-300 [facility] Creatinine/Urea nitrogen [Mass Ratio] in Serum or Plasma 8 [facility] Bicarbonate [Moles/volume] in Serum 22 mmol/L 22-29 [facility] Alanine aminotransferase [Enzymatic activity/volume] in Seru m or Plasma 126 U/L <33 H [facility] Anion gap 3 in Serum or Plasma 9 mmol/L 8-15 [facility] Glomerular filtration rate/1.73 sq M pre dicted among non-blacks [Volume Rate/Area] in Serum or Plasma by Creatinine-based formula (MDRD) >6 0 [facility] Glomerular filtration rate/1.73 sq M pre dicted among blacks [Volume Rate/Area] in Serum or Plasma by Creatinine-based formula (MDRD) >60 [facility] ID Date Data Source [id number] 07/01/2020 08:04:41 PM [facility] Name Value Range Interpretation Code Description Data Joyce rce(s) Supporting Document(s) Progress Note [facility] IMJCTn7sNbWRTqIx79/IDJjwKMDkf5EbBHjfCDk1WQhsRSEiO5CrRHG0zB2dQQC8KJgKLbRzRvHvJQEn [facility] CsNdtKWtMrITWhZvtEXpRoBTffNrhscZMmRM7KiZX0RRSrJ19wPWDnRFRsY0XgOVTrLXA+Fq8YXSCarC LyZI5TPrfX8G6yo2qYVq5soP6zynXNrirGFY8pi7EF0+Hyh0pnIphcc8wlXVi4zTwFMqV1479/JHdX1I sUK1JtKtS8H7mywY8zDlctcxpuXXG8c/4AK7GixA6l /ix+fBYweK1Dw/0jiiwYY1nmcnQOxAJ+w0zkubR+Izd6Kkb/Nhg0yqi6mDFjtqIHWPNsiaKyIF3Ti14V ci0Pdrtq5mvO7ncatVt3xGWcGOkaSq3BjN3+LE5+Hy5DrPv8qXnweGd4B1zUZyyMg0a3SF5qH6uaJ6Tt Od34fWFI5D43F05Xucdodu9B/YCkxA320xsUYrTkUp gyF+e8/GyticEfQ38dUfwyBWtdVjOdjOy+BlfUpv5VTO1oiHEx0mTwczhkr+OzOd/W+IwgfvBJ5umvSD Hebrew/eeyFCEZ6Mm3XXWSSbPQipf6QizblVd+7BSfwE3BZy4O+X55snYmcxZ957y9cSC6+xYTREnSLebl++ [file] ICAgICAgICAgICAgICAgICAgICAgICAgICAgICAgIC ChEZQgMGCdNTJkNRHjGDIxVPUrIVEnRQXdUJPdPQPnIGTcWVRvIBFhKPZaYXVdOPOfRJBhNYEuVI6VRM AgICAgICAgICAgICAgICAgICAgICAgICAgICAgICAgICAgICAgICAgICAgICAgICAgICAgICAgICAgIC AgICAgICAgICAgICAgICAgICAgICAgICAgICAgICAg FLIsFLNfWV1DHPKkKIWiZTBiGYKsIHQhTIHhNIOrGNFfMMUsKWHaFVFfAZTmHDKjPIMePWAvAXVmGKJl ZHJuCBZlWMOxJBBlMMAfBHTuRJVjVHChZSGgUSJtUEEuQBTwAVZrUGVtAUAiJRNhBA5HQVVoUXEiVKRt ICAgICAgICAgICAgICAgICAgICAgICAgICAgICAgIC AgICAgICAgICAgICAgICAgICAgICAgICAgICAgICAgICAgICAgICAgICAgICAgICAgICAgICAgICAgIA 0KICAgICAgICAgICAgICAgICAgICAgICAgICAgICAgICAgICAgICAgICAgICAgICAgICAgICAgICAgIC AgICAgICAgICAgICAgICAgICAgICAgICAgICAgICAg PIQnZKJdTWLuHI5YSYHnQBOvOZOgRIEbWUThSOXrFAYgHVHqLMUtWTViYKHlEXMuJQKfYFYwKHLvTKXc RELsEDApBQRmATRkAWOdRIJoMCYgGNRcHVRaHGJsYOHmRVVtWVGkZOTpIHOkDQVdONEcCP5STZNsJVWq ICAgICAgICAgICAgICAgICAgICAgICAgICAgICAgIC AgICAgICAgICAgICAgICAgICAgICAgICAgICAgICAgICAgICAgICAgICAgICAgICAgICAgICAgICAgIC UeWP7QOCQaFLIiEEUvLUOrRQXvSYYpRFYeTHHuXTSrWSUlWOFyFVDtDXQcNVNsEAQwBJDmJQBgTVEuPV AgICAgICAgICAgICAgICAgICAgICAgICAgICAgICAg APYpTDZzWAAqVZAfBJ3ZTYIzHJOgLVYdVKDmTBSmOPDcSHYdDSQdRGIlQQNcUWRsCCZuUAZiZVXiTZOh KKRaIOQhIROyNDCyZMAbAGEsNZZhCRMsXJXtOHTvMUNiPPXpURIlHZGkSWMyEOKqCACeMQJkPI7EKM49 kKFvg0I0FNNjKF0feqh/Wv0XIStxnwPygOUfJZ2ODj LxPV3evi5YAbLsTR3yzr8VQSoEDfUeD7K2lZGdPKRrDAJQUuHsW88yAXjzEc72DQaoAEGfQnMdWNg2Ym 0GOxHoD9khRNGcMjM7RYGdUkE2QEDsJeDjWSQnZYPiFJIfWEZEATR8GNKnMnDxHeAtQIAiLQhvUVGFMX QtWOEiRzUhJwIxAAYxKpLgZQMYYHI8CHLkBpEwEUMl XMFeLQ8PIALqO643hjSqKBUJSr1+SWybqvHyJqtZRdK1OEIcm6OsEVu9PU0CCBUgUrpkw8LqXLqwXNGR QFydVH8ODCY9UNN8BMCwBs5VPPVoV586qiYsUC3SXi8QUrYsOP7pvf2AHDsxOQMpClmQHdg9ZJqzON9W mKFkPXeFxu2runSuosIEo5JsikIcvJBZSApoc7KhZS WnCX3trxbnCQBTVOAwnGCbSI8eJD2sBLNjGJR4TvBwXRXKYR5AJGHqANLotHMzRPTyBYBYBU9BOBmaQX L4TYFeogRzoPGuVGszOE3XQWMhfvUqAQjyUEBYYXq+Ks8VTH6av7TcFNh5BQDde2DcRJi4OZ8AYVUkOJ gnRVOuWK0eq5QwL4D4HkP5kUSpM8ekghktV7AaysMh neExMVWbZIWbBQ2RKP8WNC3XZOLlETcqWG6CRYG5WUi4WsY7GAZbPTMlZSD1KJ4kZHsiXJ1ACWe1U0Cq E8OWRRDcVMLYGKKmqRU1GZCOKi7KW5EIZekZSAFYWl0QGlYmM1ANH3vBJ63PHB2PWVU+PiANCj4+DQpl lhPsLtlZFtIgDRVcr1GmMDh6MS5XAKUaOZoiJU4NPD ZynC5vFUjzZP5LGrF8MvGiZPSGMqVsN42ymJVzKVr4E5GgThYfXMGhNmdkOESgVCfzEqIkOVBbCmXgHX ogID4+ID4+NSkuUK7PLDkygoNgGUDfCa8PYEYzNFJtUY4jYEPcCRToG0Z3dCggXCZDXeFhF5biybilBN 1mPSVtP430xAhrytXtVOJ8VNPrTf4ZAHJdSHA0PDDu qYRoZAjxJDHZUHyhPC7JuKNbSRS4zS7eCNklWQVxYBLwC3eWQzSxaYblLU02aFnpkcAowJVrBTj+Pg0K MS5ik0CiEJq4kwZfMCpkKEEuMEomUXYhGYCkHQLuLKP8SLZ5YNHJGcSvZRVjJEJiLGdbNXKzHDWlzd9K QUBtKCO1OrE1RGRlKJLpXZLgBKykZNDsDTS7FMFpTC NwPYHfFE9BXyOwZNGwIVSmRRiqSGUdNDKngw6GFWEgVDXtHoV8UgTqKRPcUWNrQIwkCOUpCWT1UVJxUE OoUZVdHN9CCbRxKXNeGSW4HBFfMDWvNQJufj2QSITvHTGwSkSvNMJjUOAcPBHqTGxiQVQlSKT3SVRkSN LjGLGtIX0YSzPiPBDaXIRkYYlrNHYiXUXwdb4FHJAz MNWbWYDzPPGcRSTuKTIyCNyjCUJgGUA7VhauXYLcWFOfHD5RAhUmYVRrVTO8TIJcATNcSZRocs3EKNPd PXAtXeC4QYAnQOKiXJYeQMyhGCEdILE7MkB1MRYnUDCiXL4EMeNdHDNaSiBeWyEaUVHtCCPrfo8DYPVt HHEjBJG3LZDnLEPkZCPtIVkiZYQsBNFdOdjeYIMqVX NhLM0RQzCjTBXmGlR9NAaoZBSsTNJhev5FHSOnVXKjOee8NIWjNXCfPGJsDBxfROEvGOO1KTY5OFRpWI ZcVJ6CFqPoNSHkAtgqUNbxCVKvWEWqmk2UFVMvRSCxXFI7DEIyJLDrSMIuGFzlBTTlALGeAxV4ERVeTT LtPG3WZzPpAEWrYmZ5PRLtHVUhHBGxqt1LUEKmQADx HdY8DaFuIBIzHGUnZMiuQBSuWRV2ZaekZJAiWJDvGO4ULfNxHRFqNqsqAIqkSQXdXDVztk4TSBSuWFNm QRYaXKWcORCfWUYnJFnqRTSiDTP7NQG4RFZuAEDlHU4AXnEbNVMwTvt9VhDnJPOeGJHskt7PCRHbSGOh GPo4AIMiEJGrFBEbLDjfTYZvYMLxQUDpGDCoKWKfSW 9YUiWhIVVaPVFiYVZlAMMdFWDjyk5QEXRtDFR4MRA9YpUiFXBtTMMqJCllTHPcSWAjAbVzWYIrZCQwJA 8IUoLnIBNiZEEyLVchHUXkTXEprg8XYKUzWDB1UdJ8BcThMSXdISJtFArxJRMdJTYoXUP8ASFaVOKzBR 0SRqHeQUVhGVL8MJOpMDGbHQOhfe4VZJDyAWZ0QFJ2 IzVsEGKoZJHzSUkiUPGlURO1Wed1YXRlJEFsCM6VKxScGIHwKAV0YsCnXUXhLLDhuy3KKIXjRPP3EZcj SeDgNPWsTJPxZQknJDXfVET1CNh9RSVrOPNdLW9EIqGuEEVmNLJpSLsdNWYzLOVesk9AMPZtHTZ2PeB1 WuRbZWQqCYTuVKbqQHQyYHU4KsY4HBYjPWZkJQ3CRu CqFEJyAHzpMnvvXVKrYOOriz2QYNFzXNK1BVIfBaQzTMXeICZwLEc7nzZfmGGyDGo7DT5QQ4AekyFkFH MSGb1Kr214RSPjGXJoIp4NI3zpEh3lUPHpPNKGDp0SGFq6PjS1Qur5TrV0UtDlUIrvCDM2Hzb0SkjzLI u8CQElZRT+CBbyCJyiAJEeHRlsVJS7DoW8UVerOMPm BYY7AGs4ByFvYw5pQLELQo7+OMdauWLndYpuEGWDLqB3TYOgMTngWJNMKb5I ID Date Data Source [id number] 06/27/2020 06:41:42 PM [facility] Name Value Range Interpretation Code Description Data Joyce rce(s) Supporting Document(s) Progress Note [facility] AMTASk6tAtUTHtOo37/BQRyeUNRdw4NkSEaoUJb8HFnaZOBiU7XdHAR2bE2tRTA7YPlOAaJlRfZzQSO1 lbm [file] VZGIbBlz/urban planner/NeHGx/TB10QxacmqMz6Z5+uu5TsuqVnfZPd1TfHHGcUmsPGCOB7o/uBH93+qPxP53+yX [file] XSANCj4+HPpzbHGygFcuLKCJFft7Opn0PQguZMAUSh8D ID Date Data Source [id number] 06/27/2020 09:05:32 AM EST [facility] Name Value Range Interpretation Code Description Data Joyce rce(s) Supporting Document(s) Leukocytes [#/volume] in Blood by Automated count 7.1 10*3/uL 4-10 [facility] Erythrocytes [#/volume] in Blood by Automated count 3.65 10*6/uL 4.1- 5.3 L [facility] Hemoglobin [Mass/volume] in Blood 12.4 g/dL 11.5-15.5 [facility] Hematocrit [Volume Fraction] of Blood by Automated count 36.7 % 3 6-45 [facility] Erythrocyte mean corpuscular volume [Entitic volume] b y Automated count 100.7 fL 80-96 H [facility] Erythrocyte mean corpuscular hemoglobin [Entitic mass] by Automated count 34.1 pg 27-33 H [facility] Erythrocyte mean corpuscular hemoglobin concentration [Mass/volume] by Automated count 33.8 g/dL 32.0-36.0 [facility] E[facility]th[facility] distribution width [Ratio] by Automated count 14.8 % 11.5-14.5 H [facility] Platelets [#/volume] in Blood by Automated count 268 10*3/uL 150-400 [facility] Differential cell count method - Blood [facility] Neutrophils/100 leukocytes in Blood by Automated count 71 % [facility] Lymphocytes/100 leukocytes in Blood by Automated count 18 % [facility] Monocytes/100 leukocytes in Blood by Automated count 8 % [facility] Eosinophils/100 leukocytes in Blood by Automated count 2 % [facility] Basophils/100 leukocytes in Blood by Automated count 1 % [facility] Neutrophils [#/volume] in Blood by Automated count 5.08 10*3/uL 1.8-7 .0 [facility] Lymphocytes [#/volume] in Blood by Automated count 1.30 10*3/uL 1.2-4 .0 [facility] Monocytes [#/volume] in Blood by Automated count 0.58 10*3/uL 0-0.8 [facility] Eosinophils [#/volume] in Blood by Automated count 0.14 10*3/uL 0-0.5 [facility] Basophils [#/volume] in Blood by Automated count 0.06 10*3/uL 0-0.2 [facility] Nucleated erythrocytes/100 leukocytes [Ratio] in Blood by Automated count 0 /100{WBCs} 0-0 [facility] ID Date Data Source [id number] 06/27/2020 10:28:50 AM EST [facility] Name Value Range Interpretation Code Description Data Joyce rce(s) Supporting Document(s) Albumin [Mass/volume] in Serum or Plasma by Bromocresol green (BCG) dye binding method 4.1 g/dL 3.5-5.2 [facility] Bilirubin.total [Mass/volume] in Serum or Plasma 0.2 mg/dL <1.2 [facility] Calcium [Mass/volume] in Serum or Plasma 9.5 mg/dL 8.6-10.0 [facility] Chloride [Moles/volume] in Serum or Plasma 107 mmol/L 98-107 [facility] Creatinine [Mass/volume] in Serum or Plasma 0.72 mg/dL 0.50-0.90 [facility] Glucose [Mass/volume] in Serum or Plasma 88 mg/dL 70-140 [facility] Alkaline phosphatase [Enzymatic activity/volume] in Serum or Plasma 93 U/L 35-104 [facility] Potassium [Moles/volume] in Serum or Plasma 4.1 mmol/L 3.4-5.1 [facility] Protein [Mass/volume] in Serum or Plasma 6.8 g/dL 6.4-8.3 [facility] Sodium [Moles/volume] in Serum or Plasma 140 mmol/L 136-145 [facility] Aspartate aminotransferase [Enzymatic activity/volume] in Serum or Plasma 29 U/L <32 [facility] Urea nitrogen [Mass/volume] in Serum or Plasma 8 mg/dL 6-20 [facility] Osmolality of Serum or Plasma by calculation 287 mosm/kg 275-300 [facility] Creatinine/Urea nitrogen [Mass Ratio] in Serum or Plasma 11 [facility] Bicarbonate [Moles/volume] in Serum 23 mmol/L 22-29 [facility] Alanine aminotransferase [Enzymatic activity/volume] in Seru m or Plasma 22 U/L <33 [facility] Anion gap 3 in Serum or Plasma 10 mmol/L 8-15 [facility] Glomerular filtration rate/1.73 sq M pre dicted among non-blacks [Volume Rate/Area] in Serum or Plasma by Creatinine-based formula (MDRD) >6 0 [facility] Glomerular filtration rate/1.73 sq M pre dicted among blacks [Volume Rate/Area] in Serum or Plasma by Creatinine-based formula (MDRD) >60 [facility] ID Date Data Source [id number] 06/18/2020 07:18:22 AM EST [facility] Name Value Range Interpretation Code Description Data Joyce rce(s) Supporting Document(s) Progress Note [facility] WWEBWp6pAvXQShXi57/BFXbwIWOom6NiIIvmRDd3KTbbCTKoQ1QnCFT2dH9vEGO3GNgZCzHkUeAjTELi lbm [file] RkHp0EpvrgpXN+AUTO BODY ESTIMATOR/[id number] [file] == ID Date Data Source [id number] 06/13/2020 01:04:12 PM EST [facility] Name Value Range Interpretation Code Description Data Joyce rce(s) Supporting Document(s) Progress Note [facility] EIEEJv5lCxVZOlJq45/YHTpkAAKfq2HzHJvpNXs0IRwdMHUlL9HrHTP6gH7wTWY1WNqNCoVmMeQaZDW8 lbm [file] [id number]= ID Date Data Source [id number] 06/13/2020 11:33:50 AM [facility] Name Value Range Interpretation Code Description Data Joyce rce(s) Supporting Document(s) Progress Note [facility] MXBTMi1bVtCCUyRn66/QPWxpAYVvl7HmCKuhOEb3SKdgCSBsZ8BhZGG2vQ7hBBB6ESvJOfIkZvJiNRS2 lbm [file] [id number]== ID Date Data Source [id number] 06/13/2020 10:26:10 AM EST [facility] Name Value Range Interpretation Code Description Data Joyce rce(s) Supporting Document(s) Progress Note [facility] WMXGEt2bSnDWDgKn77/KEFvsXEXbb3UdLFybWKi6BXgjQOGfB1EoZXG4uD1uTFE2SUnMBpAdIoRhKKL4 lbm OqDneABxIqFGAwGfvNKqSoXKhrWmsfhIQwVK0DmRU1SIVoI71vCCYpJHEdT7DyIZQqFKr+Aw3KPRRilT YeNA1DBzuGwYgddjsQXF1w2M7qgeHQsTaX+542qGDbf66diPB5ukEEY6xmctjRNiiSeS/uywwA17FrbQ CSBWQZJqJgue7zKMr34gziLEpX02ovk/42TjxxOxA/ /mJZ37xlcc3mkp9uHK8khncDJY122nuWd84klV9Bxqxo9yLX74ZIxNkUoZx4r0sp72zGhKxoV2nx7FnF o2P17flDD+KLoPwsfG6ving+EC+26p8DMN2sKdo10032a9PC8f5v+TOjet4XFgtpegxkQCQ7LW7HhQj5 fOscg3qov+GWqzmF07Zb1XAs5wmUF6v5YUSQKfpvoE jlTdH16L9DLewcaa/2vTp+4l4m8xUEPQk3LUv+8I1V2BhSW+YiifgMsm0Vu2DgCHdFNIqP0wKFGPa7kM 6UzVCreHi+Bbo3c37eM13p+l2pf+5qeKntra3YTW12IWPkRWFDZc1FJSv6am0KQSey8n430pLlSDnoAL U08BehfbTsRileg83sR7XB9Hn9vjZuNGJt1Yuidab0 eNcX2qlwGUMebqhT20XBtmrhtPK/zuz5PheYIe8m3DzgaKdOgojIV+mmUP3CaHNf0ilQiwlvpU3tle6e mr1s8R/Wkp8xs09DBJkMe2YIVGgDecdvjmTeIkv+QnD3UL44bgwQ3CUuAxVUAysxJc7silEBKwgDgtx7 hqo8u8XKae6nwylyyfbYpkllkpluFPFqw0Xhdr1bmg Ga4V16EThaSBsHu1Smt9XvPvDZRvALjLGxFtHQLnbrMMV2DIeJRtMb4rRLpVPF9PCeFEICV/bbyUTgu2 1OSUk2C+BE3k0sUmc8X4kOeW6BbMZ2VerbOxurOv0sQlTbMTjuf8/2qfjeqcUEzmmabH7tQAxjjeePfl pH1TP7w/hQCsetHCSO3fkvXHKZdzhan4uYEDNRlm8n 2GCucAuIDsw59yHGWlo4iGRKmSVIreiD1a8IHf4lCp56L1vloERamgTqm6HvHf9EFrjI6XVmxYCJp9A5 qumvEB25nJjnCRDKVJcDADh6OtO7sgXLrEDr9MJOMJ3UOZVl4a2RsFOsLq5hSeqLbBPz8YIKV3WWH81+ wQQOvRXjQ7CxYpEAmBKsmhqzgosHQsQ4J33+Saqrhp Refrigeration Engineer/tPKtb8hKnnITeWgoVutj22Qc1tFaPeTRZBfIWIz9UCBiWlPAjjOMQXVmMV+Y7s9yKcPmwJcL6n+ym [file] OWFlZjQ+ZJ4oACk+Ec9Fo3LixzN4rkHoFPc7XJC7APsfASWZJa4A ID Date Data Source [id number] 06/13/2020 09:53:44 [facility] Name Value Range Interpretation Code Description Data Joyce rce(s) Supporting Document(s) Leukocytes [#/volume] in Blood by Automated count 7.4 10*3/uL 4-10 [facility] Erythrocytes [#/volume] in Blood by Automated count 3.46 10*6/uL 4.1- 5.3 L [facility] Hemoglobin [Mass/volume] in Blood 11.9 g/dL 11.5-15.5 [facility] Hematocrit [Volume Fraction] of Blood by Automated count 34.8 % 3 6-45 L [facility] Erythrocyte mean corpuscular volume [Entitic volume] b y Automated count 100.6 fL 80-96 H [facility] Erythrocyte mean corpuscular hemoglobin [Entitic mass] by Automated count 34.5 pg 27-33 H [facility] Erythrocyte mean corpuscular hemoglobin concentration [Mass/volume] by Automated count 34.3 g/dL 32.0-36.0 [facility] E[facility] width [Ratio] by Automated count 16.2 % 11.5-14.5 H [facility] Platelets [#/volume] in Blood by Automated count 284 10*3/uL 150-400 [facility] Differential cell count method - Blood [facility] Neutrophils/100 leukocytes in Blood by Automated count 79 % [facility] Lymphocytes/100 leukocytes in Blood by Automated count 14 % [facility] Monocytes/100 leukocytes in Blood by Automated count 5 % [facility] Eosinophils/100 leukocytes in Blood by Automated count 1 % [facility] Basophils/100 leukocytes in Blood by Automated count 1 % [facility] Neutrophils [#/volume] in Blood by Automated count 5.90 10*3/uL 1.8-7 .0 [facility] Lymphocytes [#/volume] in Blood by Automated count 1.06 10*3/uL 1.2-4 .0 [facility] Monocytes [#/volume] in Blood by Automated count 0.36 10*3/uL 0-0.8 [facility] Eosinophils [#/volume] in Blood by Automated count 0.08 10*3/uL 0-0.5 [facility] Basophils [#/volume] in Blood by Automated count 0.04 10*3/uL 0-0.2 [facility] Nucleated erythrocytes/100 leukocytes [Ratio] in Blood by Automated count 0 /100{WBCs} 0-0 [facility] ID Date Data Source [id number] 06/13/2020 10:24:29 AM [facility] Name Value Range Interpretation Code Description Data Joyce rce(s) Supporting Document(s) Albumin [Mass/volume] in Serum or Plasma by Bromocresol green (BCG) dye binding method 4.0 g/[facility].5[facility] Bil[facility].total [Mass/volume] in Serum or Plasma <1.2 [facility] Calcium [Mass/volume] in Serum or Plasma 8.5 mg/dL 8.6-10.0 L [facility] Chloride [Moles/volume] in Serum or Plasma 110 mmol/L 98-107 H [facility] Creatinine [Mass/volume] in Serum or Plasma 0.63 mg/dL 0.50-0.90 [facility] Glucose [Mass/volume] in Serum or Plasma 91 mg/dL 70-140 [facility] Alkaline phosphatase [Enzymatic activity/volume] in Serum or Plasma 99 U/L 35-104 [facility] Potassium [Moles/volume] in Serum or Plasma 3.7 mmol/L 3.4-5.1 [facility] Protein [Mass/volume] in Serum or Plasma 6.5 g/dL 6.4-8.3 [facility] Sodium [Moles/volume] in Serum or Plasma 139 mmol/L 136-145 [facility] Aspartate aminotransferase [Enzymatic activity/volume] in Serum or Plasma 25 U/L <32 [facility] Urea nitrogen [Mass/volume] in Serum or Plasma 8 mg/dL 6-20 [facility] Osmolality of Serum or Plasma by calculation 286 mosm/kg 275-300 [facility] Creatinine/Urea nitrogen [Mass Ratio] in Serum or Plasma 13 [facility] Bicarbonate [Moles/volume] in Serum 22 mmol/L 22-29 [facility] Alanine aminotransferase [Enzymatic activity/volume] in Seru m or Plasma 25 U/L <33 [facility] Anion gap 3 in Serum or Plasma 7 mmol/L 8-15 L [facility] Glomerular filtration rate/1.73 sq M pre dicted among non-blacks [Volume Rate/Area] in Serum or Plasma by Creatinine-based formula (MDRD) >6 0 [facility] Glomerular filtration rate/1.73 sq M pre dicted among blacks [Volume Rate/Area] in Serum or Plasma by Creatinine-based formula (MDRD) >60 [facility] ID Date Data Source [id number] 06/11/2020 05:01:01 PM [facility] Hospital Name Value Range Interpretation Code Description Data Joyce rce(s) Supporting Document(s) Progress Note [facility] ROGXFa6aVrRHMqLt24/KSGrrUNUmw6NgWYekYWj3AAvlTRMtI4DpSKP0qK5gHRX2CQuJEtNbBxUdGNQe lbm [file] AgICAgICAgICAgICAgICAgICAgICAgICAgICAgICAgICAgICAgICAgICAgICAgICAgICAgICAgICAgIC AgICAgICAgICAgICAgICAgDQogICAgICAgICAgICAg ICAgICAgICAgICAgICAgICAgICAgICAgICAgICAgICAgICAgICAgICAgICAgICAgICAgICAgICAgICAg ICAgICAgICAgICAgICAgICAgICAgICAgICAgDQogICAgICAgICAgICAgICAgICAgICAgICAgICAgICAg ICAgICAgICAgICAgICAgICAgICAgICAgICAgICAgIC AgICAgICAgICAgICAgICAgICAgICAgICAgICAgICAgICAgICAgDQogICAgICAgICAgICAgICAgICAgIC AgICAgICAgICAgICAgICAgICAgICAgICAgICAgICAgICAgICAgICAgICAgICAgICAgICAgICAgICAgIC AgICAgICAgICAgICAgICAgICAgDQogICAgICAgICAg ICAgICAgICAgICAgICAgICAgICAgICAgICAgICAgICAgICAgICAgICAgICAgICAgICAgICAgICAgICAg ICAgICAgICAgICAgICAgICAgICAgICAgICAgICAgDQogICAgICAgICAgICAgICAgICAgICAgICAgICAg ICAgICAgICAgICAgICAgICAgICAgICAgICAgICAgIC AgICAgICAgICAgICAgICAgICAgICAgICAgICAgICAgICAgICAgICAgDQogICAgICAgICAgICAgICAgIC AgICAgICAgICAgICAgICAgICAgICAgICAgICAgICAgICAgICAgICAgICAgICAgICAgICAgICAgICAgIC AgICAgICAgICAgICAgICAgICAgICAgDQogICAgICAg ICAgICAgICAgICAgICAgICAgICAgICAgICAgICAgICAgICAgICAgICAgICAgICAgICAgICAgICAgICAg ICAgICAgICAgICAgICAgICAgICAgICAgICAgICAgICAgDQogICAgICAgICAgICAgICAgICAgICAgICAg ICAgICAgICAgICAgICAgICAgICAgICAgICAgICAgIC AgICAgICAgICAgICAgICAgICAgICAgICAgICAgICAgICAgICAgICAgICAgDQogICAgICAgICAgICAgIC AgICAgICAgICAgICAgICAgICAgICAgICAgICAgICAgICAgICAgICAgICAgICAgICAgICAgICAgICAgIC ZmCFUwTTXeSQIiOBNyRRMrBSUpTMPyYOVyLXm2B6zs GEJdUPUvGP9aFAd4Da0+VUpPViRdLPZ5lgFcbO3SCP7nj0KwGCumTWBmo0MmZKi2BY7ATLTfMEjfYN9L NWtqle8RCFPkXOZeyJNKt6vxDzSzJNS1GKTyGzreZD1RTAHvA4reddNoDJJeJCAKLPimYWLOGIUaRQQa ZbDcWvXnKYYyQSBlGBDKWCX5TKLjOuWmNWTkVYZzCw WdUVLOLFOkVPVoMzRyFFWjBNDnAuOjRGJXBA3TTzItM4DsaF30UNLlPOq+Gl6UIT0up0QtOMd0CrEdGJ 2kst2JWOuMDbObY6PofwS7DZS5RWNyNe8AWUJmPMVhnYX7TxVqONABHrZmO4KlgJ39SQUYNh4+DQplbm IoJerVRqT5YXGbi4VvSIh6YI8NXBFlWLj9yFVcGIGj M9Suo1DkIq40XWCaInbsVTShnDLaHGCMCG4mokQxozklVpEuINTwOFOmEdkfXsHgVMZmPUhmPHOOGPmT VmPqO4Tpc5OmCfX9CDJaJdKdOHqmKEDpXiL1OK79uRkvPS7IXOKpCDVcMZ29HHR8EFBvDj6HCp8GPbBv AI0olm5XZoPsOU0otz9JAAlMTkMbP8X6rHIcO0Wenr 79JC0RoQC9rAYtWN7NiS6sJJ4Wg2SuXPZqVwNxGOTgGPThRJOeNHJzToDxGM0IPVWzNyTcfCDuCCMcRJ M3XJMmApPgFBowPU8HEVKoWTK4MA9HZM5ZEoriN9NZWYziuWstHiZMLYB/LOQUPEYDMPjoWISeG28LU5 HABQsVCvezWOoASjiqXf8iDQu+Jb4UQY6ip2YcFJb8 EBKkOS5mww7ZHVbBWxRrL0S6uLJjW4L5BSscLs7EDNRgXIGyXRVpUIOCCXulTF8ZRX6iejW7UK0JsJQf ATQeOWHmiSWtIFq8V45pyAHrDRbtLC6LSGX+Ron+Sm4LYRLcDTMuIZZyOrNwAHFCDwAiP3ZiJ0VIw8Xk B9DsEV58xHnhquMuHXwkTM3TNV7wVXTxCRMZDH8HrT EttQ8mspP3UkEsIONJQbRiE79liTZbXSQqELY8IIOvMj0PBWXeI4GsnqVojHfjprXeAEKbSUXQBE3SDG phgmPriQKbmPxfJT15eZuuDA6IJu5AMwHfNI3xto2EgBOcQl9AQCJ7SZ1CXLGgRUVnPHMyCUK1YSFyTi XwOQmlELKtJFPsUZA8EVDqAOMlTO8JKtYgVLPmUYT8 VTToJBXhOXAmle7ZKRElMUX8HcS8GnVfTNFuVHXdHVmaAVVwFZEyYMW1RJPpWENiXX2GGtTvKBOmIRP7 FuGvOKLtEBWali9MFINsSJB1Thm2VrOpKPQmFQSjCKykLKYyLBOvAqx2PXTsVPHxCI7MKpXcZQFtEYQ7 PNmgHFLqGZAaaj7SQBCqNCTjHwY1VrIiDHWrNJZlYM ydGTSmHFXdKZYbFRRlKRAlQH1JJpRmHDXtYSE6NzRzESMhVIRiyw5EEMDnZXQoZEG3YVMrKICaZRAyEA atNSZdORM8SPwfKWQbTCVfAC8VAhSbAUUpSPtwVvEpWZMrIFGmaq4WOZJbIOGyOjS1WyTeNCQjDTCnVH ecOZZxGQTvQql1YJJoTHPcON7KHjTmFBAjSyV6MPAy ZQFaFLNwrp7RNJZyKFQiYfNkPWMvYYOpFMApXZgpWHLiSJRkATN6VVLzIYQuWO4XPuVmECHvWyD1DLIm MLPtQTFymc2EYELjLNUnJtZvPdPiKSMsQTVtNCpoKWFmFGC4OGJiBUEdWPPsSF7UJuAaUWLkKbSuQSnt REJeALVciy4SYPGiYEXtZSKiJADiAZBtWUCiBPajLV SvNTP1YID6XBTdRSPtKF0FGsJiNPJiRqI5HgIlBLKdZQYzjk4KQECcWDFeXkd6DGGvBQAfJKVwQCjfCW LnYAA3COJ2OXIqHBBbGL5EWsGjQCNfGwpjNwQbVEVwANIsgk2OFBIoSKRlLALbBJLeSULtXIWcXNmvZT SjFLX5FgC9YQIdIRToZS7MArUtTJPcWnq6MemoIPWk BLNdek6HTOKnBFHyDMY5NeIsBCSuRQNdUZraLMGvKIHpXEc2EDOdXQFeTI0TDzDuBUViGWU5KOPiMVEd AMDptq1OXFAkYAU8FKLlNJEsEPCyABIwJQmfICAlDZTvPTmbJUPmFLRbJD4XNbGlIXSlMNBbQAjpVYYt EUPgkm9AKWVuHUH4Aha4DWCwANEkRSRnYYyvYKSoOJ TqBBB6AMVgLDFvQX7BSwEqMUXvUAHeLxtoYMAeOYPkxw2HCPFrCRZ5JLH6FUGtCWGzLLLmQFlfTMViZQ I3JDVcGILsQRTxXI8CZyNqRCBhFFD3CiFnGNDvKKZzpn5VOGMyGVC1OQM6JoPrLJQsZFOaSVbzIMAoGT X0DVC5NROjYLWmCR1RYwCfDKGnBCT1KlMgHDRtIREi ln0VJWEbTJA4Egz1IcBqGKFwQNQiRHq6yhGcnUFuDCf3DO1WG1TfwjRjGMyMRz1Rw522DHH8FDFfQt3K Q5rnOr4nYLQhUFPKMz2RJWm5C2AkIQIyOXZwDIV9VGJbKeJeBVWmMyPxNXI3Iqg2KGH+QGb0QMDsRBS7 AHRmQXBqTsCuCELiNZS3O6J4Lcs9IKeaZL9dCGNKSl6+KUzviPFxrVyiHAOAEkW9TqF5IZzdJOGFQu8W ID Date Data Source [id number] 06/06/2020 02:43:10 PM EDT [facility] Name Value Range Interpretation Code Description Data Joyce rce(s) Supporting Document(s) Progress Note [facility] JPXKQd4iCdPRWcTl38/HYRdoWIZkh8XiJWqfJYv8KBmeQJJdY1CaQTD8vU7jWZV5XQsYGiMuJpZzZST8 lbm [file] ZtcdFQGcLMO5MXX0Rls3CZCmNeWsWg4dAPSILp4+VVghfXBiiVusGWHYZrX2APC1LEkdWHTCBj1C ID Date Data Source [id number] 06/06/2020 09:04:24 AM EDT [facility] Name Value Range Interpretation Code Description Data Joyce rce(s) Supporting Document(s) Leukocytes [#/volume] in Blood by Automated count 9.2 10*3/uL 4-10 [facility] Erythrocytes [#/volume] in Blood by Automated count 3.63 10*6/uL 4.1- 5.3 L [facility] Hemoglobin [Mass/volume] in Blood 12.4 g/dL 11.5-15.5 [facility] Hematocrit [Volume Fraction] of Blood by Automated count 36.3 % 3 6-45 [facility] Erythrocyte mean corpuscular volume [Entitic volume] b y Automated count 100.0 fL 80-96 H [facility] Erythrocyte mean corpuscular hemoglobin [Entitic mass] by Automated count 34.2 pg 27-33 H [facility] Erythrocyte mean corpuscular hemoglobin concentration [Mass/volume] by Automated count 34.2 g/dL [facility]0-[facility] distribution width [Ratio] by Automated count 17.2 % 11.5-14.5 H [facility] Platelets [#/volume] in Blood by Automated count 257 10*3/uL 150-400 [facility] Differential cell count method - Blood [facility] Neutrophils/100 leukocytes in Blood by Automated count 78 % [facility] Lymphocytes/100 leukocytes in Blood by Automated count 12 % [facility] Monocytes/100 leukocytes in Blood by Automated count 8 % [facility] Eosinophils/100 leukocytes in Blood by Automated count 1 % [facility] Basophils/100 leukocytes in Blood by Automated count 1 % [facility] Neutrophils [#/volume] in Blood by Automated count 7.17 10*3/uL 1.8-7 .0 H [facility] Lymphocytes [#/volume] in Blood by Automated count 1.10 10*3/uL 1.2-4 .0 L [facility] Monocytes [#/volume] in Blood by Automated count 0.75 10*3/uL 0-0.8 [facility] Eosinophils [#/volume] in Blood by Automated count 0.06 10*3/uL 0-0.5 [facility] Basophils [#/volume] in Blood by Automated count 0.07 10*3/uL 0-0.2 [facility] Nucleated erythrocytes/100 leukocytes [Ratio] in Blood by Automated count 0 /100{WBCs} 0-0 [facility] ID Date Data Source [id number] 06/06/2020 10:02:39 AM EDT [facility] Name Value Range Interpretation Code Description Data Joyce rce(s) Supporting Document(s) Albumin [Mass/volume] in Serum or Plasma by Bromocresol green (BCG) dye binding method 3.8 g/dL 3.5-5.2 [facility] Bilirubin.total [Mass/volume] in Serum or Plasma <1.2 [facility] Calcium [Mass/volume] in Serum or Plasma 9.3 mg/dL 8.6-10.0 [facility] Chloride [Moles/volume] in Serum or Plasma 109 mmol/L 98-107 H [facility] Creatinine [Mass/volume] in Serum or Plasma 0.68 mg/dL 0.50-0.90 [facility] Glucose [Mass/volume] in Serum or Plasma 97 mg/dL 70-140 [facility] Alkaline phosphatase [Enzymatic activity/volume] in Serum or Plasma 115 U/L 35-104 H [facility] Potassium [Moles/volume] in Serum or Plasma 3.7 mmol/L 3.4-5.1 [facility] Protein [Mass/volume] in Serum or Plasma 6.6 g/dL 6.4-8.3 [facility] Sodium [Moles/volume] in Serum or Plasma 137 mmol/L 136-145 [facility] Aspartate aminotransferase [Enzymatic activity/volume] in Serum or Plasma 54 U/L <32 H [facility] Urea nitrogen [Mass/volume] in Serum or Plasma 6 mg/dL 6-20 [facility] Osmolality of Serum or Plasma by calculation 282 mosm/kg 275-300 [facility] Creatinine/Urea nitrogen [Mass Ratio] in Serum or Plasma 9 [facility] Bicarbonate [Moles/volume] in Serum 21 mmol/L 22-29 L [facility] Alanine aminotransferase [Enzymatic activity/volume] in Seru m or Plasma 49 U/L <33 H [facility] Anion gap 3 in Serum or Plasma 7 mmol/L 8-15 L [facility] Glomerular filtration rate/1.73 sq M pre dicted among non-blacks [Volume Rate/Area] in Serum or Plasma by Creatinine-based formula (MDRD) >6 0 [facility] Glomerular filtration rate/1.73 sq M pre dicted among blacks [Volume Rate/Area] in Serum or Plasma by Creatinine-based formula (MDRD) >60 [facility] ID Date Data Source [id number] 05/21/2020 11:37:43 PM EDT [facility] Name Value Range Interpretation Code Description Data Joyce e(s) Supporting Document(s) Progress Note [facility] IBFZIo5hWvRRXeOj63/PNOddNBTbf0SlYOhqTGd4YOdnJDQuG8EuZRE2sK2zHWH6GMtUJxJtCeCdQNYg [facility] [file] BODY ESTIMATOR/[id number]/5dCltd4NHcp7WfQAFVKz1k24ce H4MfKspyy1x5jhqhrXvf96+mXWN64r9c7Lhbpr6+syEaa6h2DsJ29/GUcDdQCb0da8v4PAd0g0Acq21a oAPrciRhMWlnBA5ft9ylKFi9y41tCYLvt05VIjXr5H Rappu0gjfvwe/0UiW0uyh0b8HHL1+tH7azIjaOE1wELb2dlul6KdyvC+RuBQRtBDhC/ouarLbHaHmJvM nsWhqmJ/bCgvSCi8V01JCQpgGjzyj+qw+tKcAV+AmioQ4Ujm4WLj1itCre/8XpjVSpuv8fJQau43lZ6W jXiIrq5iZo+N/vlSMtyp1P8ebdgwSg6963g8Et0y9h 7/57ZP/o212ohy+vFUsv2u7DO5v4VajvKTctvFyo2n5+4U1nD0U+huB5+hJdAIcbsdHhzlaIEE/SkpBT 2sZrFmKx5tGsxSX4l4UDqlwphoQky8HcMHnO3JLLBPNVzu1IFup6rcGcio4hE4adPxfm/zm3N9hdfXBe cQdXAp3mfyePMlJ5QXSF8RJUN8XZ/oOsc0dJIZclvI oxOko7UmRO9Z7QDC7wGVn/g5lT1CzuOr3UfAKFxCZL9rchyAA+GWZZFj1XFnfskybMUsONn7gDM0PKnz FKqdoIFWFzWHgl/0SHfVQhldupbHbpR2Nqc4ufv4h3fUmTlXOlEGh/NPQuAdHeyHPra9MHegoGK2Q+6/ iAC2YFe5DHn2p/v9+9HccPSjlvar++V1ITWd1E4UT3 7i/Ey35mxjcS2pe73rkb5z09ugsjRiMxh3c3dCZaZz1Z7KjiuHewIDLhVRt2UA7201j4F7m0NOmOXoyf aqc2JwbNH3vB/9/Tbu7MHK+KBUULs8tu/zQ9qj4n7UAVzMvBWNX+iPKMaf+aK/l6HeAziEPK9bzrUDWH oWXC/ZljE3DvEII6GMFwaXwOEtYZT8YpViN+keehbT C6H1wBhS6IOrpKrYoHgJbGEQaFpkKwmsKuLK5YYXFPlIjQqGv1Gg9oenr3qDYtSffj7SjLiUtKIfM/ruth [file] AgICAgICAgICAgICAgICAgICAgICAgICAgICAgICAg EZNnPNZvUGBqXZNlWKOjSYYaKSSmDYKiTCUwWRNrTKEaOMUsFDCwBKVyDF2ZVJHsULFpCLLySNWeHDTl ICAgICAgICAgICAgICAgICAgICAgICAgICAgICAgICAgICAgICAgICAgICAgICAgICAgICAgICAgICAg FZXqHTZgUQWuZCQrYYEqRZBcWHVsIDPpON9NGVCbID AgICAgICAgICAgICAgICAgICAgICAgICAgICAgICAgICAgICAgICAgICAgICAgICAgICAgICAgICAgIC KgVPOoJLGvKHMvDZLzMEUnVFIsHLUgXOXoJPZeMHXqQSKzBH4GMOUuKHRmHQQdSATiBPMwQAJnJWOmIF AgICAgICAgICAgICAgICAgICAgICAgICAgICAgICAg EJDyOAZaICZtBXGrGWJqZSOvSQGrOOIyQAExFNIqCNGkPJSoZETgEFNsRATfGA0GCOVvEGNjNNByAPJf ICAgICAgICAgICAgICAgICAgICAgICAgICAgICAgICAgICAgICAgICAgICAgICAgICAgICAgICAgICAg CQJjXFWzABTgDGBpGNOdKYJbOKVjBTJdBRWiRS1HPU AgICAgICAgICAgICAgICAgICAgICAgICAgICAgICAgICAgICAgICAgICAgICAgICAgICAgICAgICAgIC EyYPSaKAEdIFRfQPBoUBPbXRRmSEFqIBIsQEXePZHbJVEaYYZyMO2AFDZzUJBqUDBgHVQmSJLiLADhAM AgICAgICAgICAgICAgICAgICAgICAgICAgICAgICAg QDEyNLAlJQZaJSXoGMZvWONlXPVnUJQdFSJzPUEiMZFgEDUxYLSuCOSbUJZdXNChFN6UBGDbFNBjJTJk ICAgICAgICAgICAgICAgICAgICAgICAgICAgICAgICAgICAgICAgICAgICAgICAgICAgICAgICAgICAg ICAgICAgICAgICAgICAgICAgICAgICAgICAgICAgIA 0KICAgICAgICAgICAgICAgICAgICAgICAgICAgICAgICAgICAgICAgICAgICAgICAgICAgICAgICAgIC UwSDOhFLJdRRMdLMImHVHjBTMzMPXvZBXgUWInOOMcOGXrCUYsGDLuUF8KDJHhXBZiDAKuTSPxNWThLO AgICAgICAgICAgICAgICAgICAgICAgICAgICAgICAg GTTnYLRjIDOmOMIyFQAhFGXbUQBgCEQwKCTyAIVjBJDeWZXuUHLrZSUsZCIlWVBbHMThKA1WSK36qLFw y3E5VXRdLV5pnwe/Rd3GALndbsZiaEWjNY9QHcFlMB4eiu8DWbRyQW3lhb7UFRxPPyNaX5H2oEJxWDBp DQCWUhHuV77dWYvbCb48FVkuZAAnMaCyQDy8Sh1BOw KrL3fzWLQoUoI4PMHcSkH3LYZdHrHbKWkyIW5Yp0HlbYFnNJt+Xt4KEN1aw6UrGRycZKLiCU8zed9PCU rUGwSeK1SbvxK6XYIhKUJhEq4SZVVjYCKnmOAaOqHxMFMRFaYnT6EbnV15PXFUZa4+DQplbmRvYmoNCj HhGZEsl8EaMNf4UV5MXZMyPFr0eGMkAGNhL6Pos2Dn Oc36ODYtSdqdHAYnxaHijTAYbERwdLohTAijg5PqUHREJIYzhTJsCI42UuWkRlSzTMx6SxHaLP9hQHxh AV2ZZZD3GReeTCZiLINmV7yCSjBnENWlLfQfhBxpCX5YRdEzK2LodyCecBWcDZZoIMIRPz0+DQplbmRv FvoOJgHeGGQey4BwKVn9YD2NBSNaRMrqWD4PKYQtqC 8tOEybXA5WPyWbOJZgXHHRGqIoD78loENmHBo1N9HjXbCfIPPcTwsqRHPyZNymGzCaWVDfCuYcPCjtMC 4+ID4+IOorFI2VLUfnnwVvDNTtOg9SRTXuGSXvQF8cGLHsHXYuF7G1pDarOWVJCqHcU2tpburpVJ1dDF AwI709iDyqlnOcGKNgZYAxFg0UYUMcUGB0SSPfqFPf RcZzJGUOTMdvBH4HiSRuZIL5gF3bJAouFJHnJPDpI3uBCzOwuGgjYZ55fAxvdiXxfJCnFPd+Oz5INA3h x5WxOZx9reHzIPvtVHC7JAyjYORlWYQzZYEnGIF5WSB2QLHKZgOmJPFbBGKjMVacHKAqNMCkln2PJKOa MDAzMTQwNCAwMDAwMCBuDQowMDAwMDMzMTIzIDAwMD FsKZ1ODkCrAQSiBZTgGJciDNPuBUMopz6LQHWlZONrSYl0VTVfFAZiNOMkZDdtKAWtRFI1HCE0HXZrQO IbJD3DScPuENPwSET4MnBuVSZkPJSfvl2APSJbYBBdXgTxTFLxVGQjISBjLMlbYHYnZIP4TWr8RZIrKR HrPY2ETdOmKGUyZWm0NMNkXGPqIFKhxr4NGIHwZUCj Xeg5TLLrTVGhTOXaBOrdJCSeDYF7VUIoYQGhPVZuNQ9SYsVlFTEySJqjEgQoDUWsJAPvax6JOVJkERIc BSMtQHEyKOMkIGAbHHnfHFUkJGUbBKMhCQOeMEOnUC8BDyGeCBCeDyU9MnGsYNWpNYYllt6NTWBjYLBc XPr4WyCyRKShSMKqZUttBDQpPCKnJuW5ZKVgKLFoMO 5XXvUbDGIsBqRfVIFfGBLdIMBhhm9DWZCfZRIoGHl3MyEiFDTpCNBzZDifJAUcIAKzZeQ1OYIbEIFhYC 1WBbDqWALtFdNaPBzkTPUjVMJpus2VIJWkWGRcUvH1UFUiYSHaCVHyWEy4soFzdWUjQLb8EG8ET3Fkmt ZxMmQBFd0Bb360VBNrOCFiFl5DD5rtCj7eCZLxRTOO Ur5AYUn6GwGwCNkhHDL6BFYbYHqzR1XoGtH4XIOdKcR3OZIhTXf+FKn0UiJ9A1AnXkh0GmUrOQViHuN2 GYfjCQUmDtb9VvDkNO0dDTNLMq5+FBrkaODpeVbaIJYPAoHaCot8DSsrACXPOk7G ID Date Data Source [id number] 05/21/2020 11:37:38 PM EDT [facility] Name Value Range Interpretation Code Description Data Joyce rce(s) Supporting Document(s) Progress Note [facility] GXTNJm0yKeUOImKx91/TANnzGZPke3QjIXriUZv2KXhtUZYyE7YmKOY1vP9jRAC1HWzYZiMjAxXtYSYp lbm [file] A5JhSmDeOhCJH0NcJ1V3O+CP6sSWy+As6Cx1CxkdU9suRyJFy2TUP6VG4SYJNKF9QZGe== ID Date Data Source [id number] 05/20/2020 10:08:05 AM EDT [facility] Name Value Range Interpretation Code Description Data Joyce rce(s) Supporting Document(s) Progress Note [facility] BWFWVh6mCaKQLcGv61/UOItaVGZll2XyOOswZEv6NXriHXKlF4AnYNV5cK7jHHH3BJmRRhRvAjEfEXIc lbm [file] wELP3diwbZI02XS6F/Ym3/Rf4EatVb/hrarJMoa/[employer] [file] /Fpavp84Ys2rh9hUSrt5TyJwa+NyTaNoGTJXG5b7/vp product management/FuIuJbTv6o0NT5gl+ie7pctsog03Relcsh40 [file] ICAgICAgICAgICAgICAgICAgICAgICAgICAgICAgICAgICAgICAgICAgICAgICAgICANCiAgICAgICAg ICAgICAgICAgICAgICAgICAgICAgICAgICAgICAgIC AgICAgICAgICAgICAgICAgICAgICAgICAgICAgICAgICAgICAgICAgICAgICAgICAgICAgICAgICAgIC ANCiAgICAgICAgICAgICAgICAgICAgICAgICAgICAgICAgICAgICAgICAgICAgICAgICAgICAgICAgIC AgICAgICAgICAgICAgICAgICAgICAgICAgICAgICAg ICAgICAgICAgICANCiAgICAgICAgICAgICAgICAgICAgICAgICAgICAgICAgICAgICAgICAgICAgICAg ICAgICAgICAgICAgICAgICAgICAgICAgICAgICAgICAgICAgICAgICAgICAgICAgICAgICANCiAgICAg ICAgICAgICAgICAgICAgICAgICAgICAgICAgICAgIC AgICAgICAgICAgICAgICAgICAgICAgICAgICAgICAgICAgICAgICAgICAgICAgICAgICAgICAgICAgIC AgICANCiAgICAgICAgICAgICAgICAgICAgICAgICAgICAgICAgICAgICAgICAgICAgICAgICAgICAgIC AgICAgICAgICAgICAgICAgICAgICAgICAgICAgICAg ICAgICAgICAgICAgICANCiAgICAgICAgICAgICAgICAgICAgICAgICAgICAgICAgICAgICAgICAgICAg ICAgICAgICAgICAgICAgICAgICAgICAgICAgICAgICAgICAgICAgICAgICAgICAgICAgICAgICANCiAg ICAgICAgICAgICAgICAgICAgICAgICAgICAgICAgIC AgICAgICAgICAgICAgICAgICAgICAgICAgICAgICAgICAgICAgICAgICAgICAgICAgICAgICAgICAgIC AgICAgICANCiAgICAgICAgICAgICAgICAgICAgICAgICAgICAgICAgICAgICAgICAgICAgICAgICAgIC AgICAgICAgICAgICAgICAgICAgICAgICAgICAgICAg ICAgICAgICAgICAgICAgICANCiAgICAgICAgICAgICAgICAgICAgICAgICAgICAgICAgICAgICAgICAg ICAgICAgICAgICAgICAgICAgICAgICAgICAgICAgICAgICAgICAgICAgICAgICAgICAgICAgICAgICAN Cjw/qYYrP7gcrEBhblP8G3ttPz9XVu9YUC9sg7OvST UeORdxdnYpEnvOKeDsGEDcEzdPJkp8JLjgRC4HdYXzH6KdU8LcNZitFV2ELHSiXZRxkQUaJCCbSWVdAj Z3GQOcBAopXT1PzKZuRHoxYHGoGFMaSdTtBIKlXLSuXXSmHZLnRSYGSVCxGXFpFqTnVNNlLFAoIAuiHL DQOTN8FJLuAuTjYWRyMKVtMP5HZEAuF900ogToED8B Jc4IWqOdMZ1rqu4ITUPyMKLpJaqIHhu9IFdpUE7IkFFfaFV6SEMrDUURKwWkP9kla5YqIKTeNHYLALos LX0Ws2HiaBNpKUg+He2RHD3eu2SlBSe0PHFpYN3xre4HMWtRDdGqV6SulHevBIAsb4qdUFZbDK1kbFDe GVN7ZGuylLNrERneMiWDEF7dhkT8uCseDLTyIZAlZB 2iOO4mDBUvZDFiKmTlQOOJFP3YUCAbLCJkwWObXAPlECEAHZ2FOUauDIU6OZIjywLglAOiBSgjVC0ACD JlbnQgNDMgMCBSDQo+Ca7HQV2jp9QaIFk4DAEvBK9esk4XKIeWKdTeV6F8vTRlM6U6QNmvRm9WHATvNX FtYVEqAYIMAIlzRE4KZK8opqB8ZS3TcLJxDHKyRSTa bPDaFAe9E06biXRgZBarKY6TVOE+Ron+Sm2BNWJtXDJxFRYxLhGeMMWWYkZdA1CeM8PFv9EtY8UuDR63 nZylwjZiJRxfWA1IYV8qJIDbGGHEUO9PqVFwqC1kycI7BmXyAMDVNwPxZ04niYCnVOAbNUSfTRRnDy7Z AFQhR8GgoyBupFbdwhLkCVSiDDNZLA5EIXdaieMqrZ NpzQgtTL35xRcnLN5FSp4EVvXbOV7vwd5AbAEyZj7WDNK5Hz9XLKYrVFGeZACdRPH2GSNvTwIlZGzkCW JrDZAbTOD9EHZgIVBkKP1NJgPuPVBsIKT8EoByQSWqIUXkwr7OOXPgAGX0TeZrJVQyROOsRPDiTYnwAH DbGBAnKHV0EGIwVTXaVT0XLaVaOSZdQRW5XRhoDILp JNJidn0TOGJvOYFnDTVsFxZhZUAwIRTqTVlpZMGgTRP6WrruXHXoVYMgZJ9XImRrCJOeMXI9CLElEEAz WHMopf5KNMBoNMSxAQE8EoCkKALsKKDpBAfnJKTqYVQ8Kjo9PDSzNZWgBP4ONzKgCFOyJOP6GKYcAAYt ORLqjl5XPGZrAPNwVnF1DRFcEYNgFFDjJVtwQYCdBE Q9UUOyVISdLHLbCI2YJhZsXWQpPOQ0KOefCEEmDRGgtp4TOVNrVQPuPQK5ZyExPZZcYYQkIWtxJQFyUP N6JlayBUEoSCZqNU6HFkApIRNqLpK4EuAuCQNjQDZbzm1RERXxICUnVuN1CjOxYURoBYUzILtjQSTjAE N9JJYqQZAuFQOkNL1CKoZjXXZsEiqfWsAbWAPpDSBk vr0UFVMaEZYlJIn0EzDiOIRnLJMpSUpgPTTqMLM3XDntBNAwDTAdVO8SKtTpIQChKiZeFrHgDNSmSDQi hq3JTELcLGJmATLcLZNsHPHrBUHbIXdvXRXpJODsSUZbMQMtJFPzCN6FGyAgDVUvJvW5TlAoPWEkQOQi bu5ZGUClIVUhAWC6VZDlQDQfDJGwAZvqNGNiFZEhLB QbNVCvWJDrZQ0ZGxSoTPOuHGfsRuToNQHmXKEhyc7IIKKoIQL7UCk2YuSxOXUlWFEbVZtpUCUbNAXdQE M1MNVjQJHqIV7JWrUuZQYvQoD4VXBdANOoZRPmig9BQUDgWEQ5KDi9UOQbPWRsBYDxZXecGCNtSXMkQK vvZBSuZJDzRM3ZXyIbHBIrOjHrCBMdKVFkXFFhvu8P MNVdQVJ1QyL5VHCbUBBpHSVxZYjjRUGlEDemQFyxMBNkEYXuKR6UHhGaZTMnZZH0NIKfUIXkWEClqr1K CIHbKEQ7ZbtoFxWqQDCvUDGyAWgbVTXaUCb6YthhGEUxDOUtGC7SOzTvREVlYGO1LPMvEERhVKLkot5A OZLgEFG2WAv9CQMtOTNmFPIiQDztVKUyYXc0MqL0DY PvDLMpLK2OFiPoDQGfPLR8XjpyVRYrQXUgqz5XCZIkWGC8RhP6PHWaUKMmYXVmQRt8clKgbSMlTUr0II 0CV8QvbhWsDLTMZu0Zt784DJK9SYQpKt0ML3mdWr3gRHShEPYFMb1KLOk7AkFgOgA5OmSnXwRlAjZzEg A1FCx6ULh3LPC7XEIbYUv+IFc3UgXoKHcxULY1UwWf G8ElMQS8VMNpLRNcYNnwOpVxNj8lYJIOKb1+SUxqiHJrpGoxRPHJRax2DKU2NYhfYFVVVg7B ID Date Data Source [id number] 05/16/2020 01:58:51 PM EDT [facility] Name Value Range Interpretation Code Description Data Joyce rce(s) Supporting Document(s) Progress Note [facility] [id number]kZDqIzVzUnCPK5 lbm [file] ID Date Data Source [id number] 05/15/2020 12:34:41 PM EDT [facility] Name Value Range Interpretation Code Description Data Joyce rce(s) Supporting Document(s) Progress Note [facility] [id number] lbm [file] 4mVHJVGw5+GWwiaANzuCvvLRIQVic1AHVLGvRgNK4XECj= ID Date Data Source [id number] 05/15/2020 08:44:53 AM EDT [facility] Name Value Range Interpretation Code Description Data Joyce rce(s) Supporting Document(s) Leukocytes [#/volume] in Blood by Automated count 9.5 10*3/uL 4-10 [facility] Erythrocytes [#/volume] in Blood by Automated count 3.77 10*6/uL 4.1- 5.3 L [facility] Hemoglobin [Mass/volume] in Blood 12.9 g/dL 11.5-15.5 [facility] Hematocrit [Volume Fraction] of Blood by Automated count 36.9 % 3 6-45 [facility] Erythrocyte mean corpuscular volume [Entitic volume] by Auto mated count 97.8 fL 80-96 H [facility] Erythrocyte mean corpuscular hemoglobin [Entitic mass] by Automated count 34.3 pg 27-33 H [facility] Erythrocyte mean corpuscular hemoglobin concentration [Mass/volume] by Automated count 35.1 g/dL 32.0-36.0 [facility] distribution width [Ratio] by Automated count 17.7 % 11.5-14.5 H [facility] Platelets [#/volume] in Blood by Automated count 230 10*3/uL 150-400 [facility] Differential cell count method - Blood [facility] Neutrophils/100 leukocytes in Blood by Automated count 78 % [facility] Lymphocytes/100 leukocytes in Blood by Automated count 12 % [facility] Monocytes/100 leukocytes in Blood by Automated count 8 % [facility] Eosinophils/100 leukocytes in Blood by Automated count 1 % [facility] Basophils/100 leukocytes in Blood by Automated count 1 % [facility] Neutrophils [#/volume] in Blood by Automated count 7.55 10*3/uL 1.8-7 .0 H [facility] Lymphocytes [#/volume] in Blood by Automated count 1.12 10*3/uL 1.2-4 .0 L [facility] Monocytes [#/volume] in Blood by Automated count 0.73 10*3/uL 0-0.8 [facility] Eosinophils [#/volume] in Blood by Automated count 0.04 10*3/uL 0-0.5 [facility] Basophils [#/volume] in Blood by Automated count 0.10 10*3/uL 0-0.2 [facility] Nucleated erythrocytes/100 leukocytes [Ratio] in Blood by Automated count 0 /100{WBCs} 0-0 [facility] ID Date Data Source [id number] 05/15/2020 09:56:51 AM EDT [facility] Name Value Range Interpretation Code Description Data Joyce rce(s) Supporting Document(s) Albumin [Mass/volume] in Serum or Plasma by Bromocresol green (BCG) dye binding method 4.2 g/dL 3.5-5.2 [facility] Bilirubin.total [Mass/volume] in Serum or Plasma 0.2 mg/dL <1.2 [facility] Calcium [Mass/volume] in Serum or Plasma 9.1 mg/dL 8.6-10.0 [facility] Chloride [Moles/volume] in Serum or Plasma 109 mmol/L 98-107 H [facility] Creatinine [Mass/volume] in Serum or Plasma 0.70 mg/dL 0.50-0.90 [facility] Glucose [Mass/volume] in Serum or Plasma 95 mg/dL 70-140 [facility] Alkaline phosphatase [Enzymatic activity/volume] in Serum or Plasma 87 U/L 35-104 [facility] Potassium [Moles/volume] in Serum or Plasma 3.6 mmol/L 3.4-5.1 [facility] Protein [Mass/volume] in Serum or Plasma 6.8 g/dL 6.4-8.3 [facility] Sodium [Moles/volume] in Serum or Plasma 139 mmol/L 136-145 [facility] Aspartate aminotransferase [Enzymatic activity/volume] in Serum or Plasma 23 U/L <32 [facility] Urea nitrogen [Mass/volume] in Serum or Plasma 10 mg/dL 6-20 [facility] Osmolality of Serum or Plasma by calculation 287 mosm/kg 275-300 [facility] Creatinine/Urea nitrogen [Mass Ratio] in Serum or Plasma 15 [facility] Bicarbonate [Moles/volume] in Serum 22 mmol/L 22-29 [facility] Alanine aminotransferase [Enzymatic activity/volume] in Seru m or Plasma 26 U/L <33 [facility] Anion gap 3 in Serum or Plasma 8 mmol/L 8-15 [facility] Glomerular filtration rate/1.73 sq M pre dicted among non-blacks [Volume Rate/Area] in Serum or Plasma by Creatinine-based formula (MDRD) >6 0 [facility] Glomerular filtration rate/1.73 sq M pre dicted among blacks [Volume Rate/Area] in Serum or Plasma by Creatinine-based formula (MDRD) >60 [facility] ID Date Data Source [id number] 04/25/2020 01:03:31 PM EDT [facility] Name Value Range Interpretation Code Description Data Joyce rce(s) Supporting Document(s) Progress Note [facility] [id number]/[id number]PX6bV1kHEA6TOfMNeJvPuJvDVB3 lbm [file] [id number]+IF0gDQ o+[id number]TIWF8WNOs== ID Date Data Source [id number] 04/24/2020 10:07:30 AM EDT [facility] Measurements & CalculationsHeight: 63 inches (5 ft. 3 in.) 160.02 cm Weight: 154 pounds 6 oz. 70.17 kg Body Mass Index (BMI): 27.45BMI Interpretation: OverweightBody Surface Area (BSA): 1.73Weight Management Education Done (Nutrition/Physical Activity)Vital SignsTemperature: 96.4FPulse Rate: 86 beats/minuteRespiratory Rate: 17 respirations/minuteBlood Pressure: 113/71 O2 Saturation: 100% Vital Signs performed by: Van Galvan MA, April 24, 2020 10:43 AMInitial Intake Information From: patientRoom #: 15Infectious Disease / Travel ScreeningRecent travel for you or any close contacts? NoHave you had any close contact with anyone diagnosed with or under investigation for COVID-19 (coronavirus)? NoFever? NoRespiratory symptoms: cough, cold, congestion, shortness of breath, difficulty breathing? NoLoss of smell? NoLoss of taste? NoSmoking, Tobacco, Vaping or Smoke Exposure StatusSmoke Status: current every day smokerTobacco Use: YesAdv to Quit: YesDo you vape? NoMenstrual HistoryAge at Menarche: partial hysterectomy (2019)Any possibility of ? NoHealthcare HistorySince your last office visit...Have you been admitted to the hospital? NoHospital admission date reported today: 04/10/2020Have you been to an emergency room (ER) or urgent care clinic? Yes - [facility] ER (infection)Emergency room (ER) or urgent care date reported today: 04/10/2020Have you seen another healthcare provider? Yes - Dr. Dickerson (Pulmonary)Have you seen a dentist? NoIntake performed by: Van Galvan MA, April 24, 2020 10:14 AMRate Your HealthIn general, would you say your health is? PoorPain AssessmentAre you currently having any pain which... You would like your provider to address? Yes Affects your activity level? YesPain AssessmentPain ScaleNumeric Rating Scale: 8 / 10Location: whole bodyOnset: 04/23/2020Character/Quality: aching, throbbing and pressureIs the pain radiating? NoPRAPARE Sociodemographic Charact eristics Race: White Ethnicity: Not or Preferred Language: EnglishFamily and Home Address: [address] [place], [place] [address] What is your housing situation today? I have housing Are you worried about losing your housing? NoMoney and Resources What is the highest level of school that you have finished? none-8th grade Employed? No Are you seeking work? No Insurance: [facility] Care - [facility] Community PlanIn the past year, have you or any family members you live with been unable to get any of the following when it was really needed? Denies Insecurity: food, utilities, clothing, child care giver, phone, legal servicesIn the past year, have you had trouble affording costs associated with health insurance (such as deductibles, co-payments, etc.)? NoSocial and Emotional Health How often do you see or talk to people that you care about and feel close to? More than 5 times a week How stressed are you? Quite a bitAdditional Optional Domains In the past 3 months, have you spent more than 2 nights in a row in a snf, retirement, mcfp center or juvenile correctional facility? No Has lack of transportation kept you from medical appointments or from getting your medications? NoIn the past year, have you had trouble getting any of the following when it was really needed (check all that apply)?noneIn the past year, have you had trouble paying the costs associated with health care or medicine (such as co-payments, costs for services, prices of medicines)? NoHow confident are you that you can control and manage most of your health problems? Very confident Are you a refugee? No (Country of origin: [place]) Do you feel physically and emotionally safe where you live? Yes In the past year, have you been afraid of a partner, ex-partner? NoScreening, Brief Intervention, & Referral to Treatment (SBIRT)Pre-Screening Questions How many times have you have 4 or more drinks in a day? 0How many times have you used an illegal drug or used a prescription medication for a non-medical reason? 0Performed by: Van Galvan MA, April 24, 2020 10:20 AMPatient History Medical History:EmphysemaCancer - Breast (Stage 3)Bladder, Stage 3 Prolap seOsteoarthritisdegenerative disc disease (cervical and lumbar spine)anxietydepressionbipolar 1 disorderHx of Drug Use: Opiates / AlcoholmigrainesSurgical History:Hysterectomy with unilateral salpingoop horectomyGall Bladder RemovalCysts removedFamily History:Father-spinal cancer- sinus cancerSocial/Personal History: Advised to Quit/Tobacco Education: YesChief Complaintannual examTransitions of Care InboundAdult Preventive CareProvider Calculated and Reviewed all Clinical Protocols for patient today. Screening Tobacco Screening: Smoking Status: current every day smoker (04/24/2020) Tobacco Use: Currently (04/24/2020) Advised to Quit: Yes (04/24/2020)Labs/Meds/Other Counseling-Nutrition and Physical Activity:BMI Interpretation: Overweight (04/24/2020) Counseling: Done (04/24/2020) Physical Activity: Done (04/24/2020)Care Management Plan Transitions of CareInboundRate Your HealthIn general, would you say your health is? PoorAssessment & Plan Problems:Added: Polyneuropathy, unspecified (UZR07-R40.9)Medication Changes:Added: LYRICA 100 MG ORAL CAPSULE-1 CAP PO 3 X dayHYDROXYZINE HCL 25 MG ORAL TABLET-1 TAB 3X dayTOPAMAX 100 MG ORAL TABLET-1 TAB PO twice dailyACYCLOVIR 400 MG ORAL TABLET-1 TAB PO 3X a dayALL DAY RELIEF TABLET-500 mg TAB 1 PO twice a dayALLERGY RELIEF 10 MG ORAL TABLET-1 Tab PO dzgzuJAD-H-WMM WOMENS 50+ ADVANTAGE ORAL TABLET-1 Tab PO dailyONDANSETRON HCL 8 MG ORAL TABLET-1 TAB PO 3 times a day PRNHM VITAMIN D3 TABLET-1 TAB PO dailyBACLOFEN 10 MG ORAL TABLET-1 TAB with food 3 times a dayNew Prescription:OXYBUTYNIN CHLORIDE 5 MG ORAL TABLET-1 tab twice a day Qty: 30[Tablet] Refills: 2 Method: ElectronicDULOXETINE HCL 30 MG ORAL CAPSULE DELAYED RELEASE PARTICLES-1 tablet once daily Qty: 30[Capsule] Refills: 1 Method: ElectronicRemoved:NICORETTE 4 MG MOUTH/THROAT GUM-chew 1 piece uip to 4-5 hours, CHANTIX CONTINUING MONTH BRENDA 1 MG ORAL TABLET-uad- begin after starter pack completed, TRAZODONE HCL 150 MG ORAL TABLET-qhs, FLUCONAZOLE 150 MG ORAL TABLET-1 po in 7-10 days prn yeast vagtinitis from abx, CIPRO 250 MG ORAL TABLET-1 po bid, TOPAMAX 100 MG ORAL TABLET-Take one tab daily, RISPERDAL 1 MG ORAL TABLET-1 tab daily, WELLBUTRIN XL 300 MG ORAL TABLET EXTENDED RELEASE 24 HOUR-Take one tab dailyOrders:COMP METABOLIC PANEL [CPT-98652] CBC W/DIFF [CPT-09741] LIPID PANEL [CPT-38004] Vitamin D 250H Unspecified [CPT-71924] Adult - Ofc Vst, NEW, Level II [CPT-28498 ] Preventive, New, (40-64) [CPT-31661] Medications:DULOXETINE HCL 30 MG ORAL CAPSULE DELAYED RELEASE PARTICLES (DULOXETINE HCL) 1 tablet once daily #30[Capsule] x 1 Entered and Authorized by: Tanya CHAWLA Method used: Electronically to [id number] (retail) [address] [place] [address] Note to Pharmacy: Route: ORAL; RxID: [id number] CHLORIDE 5 MG ORAL TABLET (OXYBUTYNIN CHLORIDE) 1 tab twice a day #30[Tablet] x 2 Route:ORAL Entered and Authorized by: Tanya CHAWLA Method used: Electronically to [facility] (retail) [address] [place] [address] Note to Pharmacy: Route: ORAL; RxID: [id number] signed by Tanya CHAWLA on 04/24/2020 at 11:15 AM Smokin g, Tobacco, Vaping or Smoke Exposure StatusSmoke Status: current every day smokerTobacco Use: YesPRAPARE Sociodemographic Characteristics Race: White Ethnicity: Not or Preferred Language: EnglishSocial/Personal History: History of Present Illness (HPI)49 yo female [facility]. She was recently diagnosed with stage 3 breast CA and is following with [facility]. She is currently undergoing chemotherapy. Tolerating her treatments fairly well except for nausea and neuropathy. Oncology has placed her on lyrica(for neuropathy), zofran(nausea), and effexor. Effexor more for anxiety and depression, but she does not feel this is sufficiently controlling her symptoms. NO SI/HI. Wondering what else she can try. Has a history of opiate and alcohol dependence, so she tries to avoid and addictive meds. Misused g abapentin in the past so she tries to avoid this. She follows with counseling weekly. Keeps in touch with public affairs officer regularly. Has been comitted to sober living for years. 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 Also notes a history of smoking, high cholesterol, OAB, DDD, stage 3 bladder prolapse, migraines, anxiety, arthritis, emphysema, and depression. No previous records available for review. She is interested in smoking cessation. Has had a normal stress test in the past and recent echocardiogram due to chemotherapy. Both tests came back normal per patient. Migraines well controlled with topamax. Breathing well controlled without meds, does not follow with pulmonary.Review of Systems General: Complains of loss of appetite, fatigue. Denies chills, dizziness, fever, continued fever, headache, feeling ill, sweats, night sweats, sleep disturbances, weight loss. Eyes: Denies blurring of vision, double vision, irritation, discharge, vision loss, eye pain, eye swelling, droopy eyelid, sensitivity to light, redness, itching. Ears/Nose/Throat: Denies earache, ear discharge, ringing in ears, decreased hearing, nasal congestion, nosebleeds, runny nose, sore throat, hoarseness, difficulty swallowing, dry mouth, tooth pain, bleeding gums, swollen glands. Cardiovascular: Denies chest pain, palpitations, feeling faint, trouble breathing w/exertion, SOB upon lying down, SOB at night, peripheral edema, elevated blood pressure, decreased heart rate. Respiratory: Denies cough, difficulty breathing, shortness of breath, excessive sputum, coughing up blood, wheezing, chest pain. Breast: Denies discoloration, tenderness, breast changes, breast lump, nipple discharge. currently undergoing chemo for breast CAGastrointestinal: Denies bleeding, burning, itching, irritation, cramps, diarrhea, bloody diarrhea, watery diarrhea, constipation, pain or discomfort, feeling any lumps or bumps, pain with BM, pain during receptive anal sex, change in bowel habits, fecal incontinence, abdominal pain, blood in stool, black or tarry stools, jaundice, heartburn, urge to defecate. n/v secondary to chemoGenitourinary: Denies urinary incontinence, pain with urination, burning with urination, urinary frequency, urinary hesitancy, urinary urgency, urinary urgency at night, incomplete emptying, blood in urine, absence of menstrual period, heavy menstrual period, prolonged menstrual period, pelvic pain, abnormal vaginal bleeding, painful intercourse, vaginal discharge, vaginal sores, vaginal itching, genital foul odor, genital sores, genital burning, genital itching, genital warts, anal discharge, anal sores, anal warts. Musculoskeletal: Complains of back pain, joint pain. Denies leg pain, other pain-see comments, joint swelling, body aches, muscle aches, muscle cramps, muscle weakness, stiffness, recent injury. Skin: Denies rash, hives, redness, itching, dryness, nail changes, suspicious lesions, athlete's foot, rash on palms, rash on bottom of feet. Neurologic: Denies muscle impairment, weakness, numbness/tingling, seizures, slurred speech, feeling faint, tremors, vertigo, paralysis on one side, paralysis on both sides. Psychiatric: Complains of depression, anxiety, feeling stressed. Denies memory loss, mental disturbance, suicidal ideation, homicidal ideation, hallucinations, paranoia, hearing voices. Endocrine: Denies cold intolerance, heat intolerance, excessive thirst, excessive hunger, excessive urination, weight loss, weight gain. Heme/Lymphatic: Denies abnormal bruising, bleeding, enlarged lymph nodes. Allergic/Immunologic: Denies hives, swelling, hay fever, persistent infections. Physical ExamGeneral Appearance: appears fatigued. no acute distressEyes, External: conjunctivae and lids normal, EOMIExternal Ears: normal, no lesions or deformitiesHearing: grossly intactOtoscopy: canals clear, tympanic membranes intact, no fluid, light reflex intact bilaterallyNasal: mucosa, septum, and turbinates normal, nares patentPharynx: tongue normal, posterior pharynx without erythema or exudate, no thrush/aphthous ulcerRespiratory, Auscultation: clear to auscultation bilaterally; no rales, rhonchi, or wheezesRespiratory, Effort: no intercostal retractions or use of accessory musclesCardiovascular, Auscultation: S1, S2 audible; no murmur, rub, or gallop; RRRPeripheral Circulation: no clubbing, cyanosis, edema, or varicositiesAbdomen: soft, non-tender, no masses, bowel sounds normalGait & Station: normalSkin, Inspection: no rashes, lesions, or ulcerationsCervical Nodes: no adenopathyCranial Nerves: II - XII grossly intactOrientation: oriented to time, place, and personMood & Affect: no depression, anxiety, or agitationJudgment & Insight: intactAssessment & Plan Problems:Added: Malignant neoplasm of overlapping sites of unspecified female breast (GCJ52-E26.819) Assessment: [facility]. records release signed. currently undergoing chemo. will refer to palliative careOther emphysema (ICD-492.8) (XBD45-B10.8) Assessment: follows with Dr Dickerson, releases signed, breathing stableHistory of drug abuse (ICD-305.90) (SLR15-J55.11) Assessment: committed to sober living, continue with counselingCystocele, midline (COE14-C09.11) Assessment: controlled with oxybutynin.Chronic migraine without aura (ICD- 346.70) (WPN82-R60.709) Assessment: controlled with topamax, has seen neuro in the past and has not followed with them sice control gained with topamax, previous PCP was followingChronic depression (ICD-311) (LLJ31-Y93.1) Assessment: would like to change from effexor, not sufficient control. in counseling. will trial cymbalta for mood and chronic pain. discussed risks, benefits, and side effects of medication. call with any questions or concerns. d/c effexorGeneralized anxiety disorder (ICD-300.02) (QRV65-C45.1) Assessment: as aboveIntervertebral disc disorders with radiculopathy, lumbar region (ICD- 722.93) (AST19-P51.16) Assessment: stable with current treatment. no red flag symptomsAssessed:Encounter for general adult medical examination with abnormal findings (ICD-V70.0) (DPV98-M81.01) Assessment: Health maintenance updated per patient recollection. Patient is considering getting flu shot, wants to discuss with oncologist first. Has not yet had colon CA screening, but likely will get scans through oncologist given recent breast CA diagnosis. Follows with Dr White for routine women's health screenings.Polyneuropathy, unspecified (SMU70-I90.9) Assessment: secondary to lumbar spine pathology and chemotherapy. Taking lyrica with some benefit. Plan to switch to cymbalta to hopefully help with anxiety/depresion and nerve pain. continue lyrice through oncology. will do palliative care referral for help with symptom management.Nicotine dependence, cigarettes, uncomplicated (YXT89-Z06.210): Counseled on tobacco cessation for 10 min- begin Chantix Assessment: interested in quitting smoking. cannot tolerate chantix. has not had sucess with nicotine replacement. consider wellbutrin as this may be of benefit for her.Vitamin D deficiency, unspecified (AKA25-I93.9) Assessment: labs orderedHyperlipidemia, unspecified (QZN07-H36.5) Assessment: labs ordered, nit currently on meds.Assessment not Saved Generalized anxiety disorder (ICD10- F41.1): Comment Onlyas aboveOrders:Preventive, New, (40-64) [CPT-67704] SNOMED- CT [id number] : Palliative Care Service [SCT-[id number]] Adult - Ofc Vst, NEW, Level IV [CPT-87253] Follow-Up Return to clinic: in 30 days for follow upPlan Comments: labs and follow up anxiety/depressionClinical Visit Summary Declined Name Value Range Interpretation Code Description Data Joyce rce(s) Supporting Document(s) ID Date Data Source [id number] 04/23/2020 04:39:10 PM T [facility] Name Value Range Interpretation Code Description Data Joyce rce(s) Supporting Document(s) Progress Note [facility] PVPPZd6tSiCQZmFp45/GTJgzSFXgg2RaAFguYWb6QScaUZOqR5PfFHM1dS0mHYM8RFfWUgDzHeJnZPG3 lbm AiFxjYTfVxNUGzWzkSJnSgELhhDfwumGHhMT8WuXL4YXTvC01dNKOfECBgW1OdUGPwGcY+Ub2XKQVzvU VnXN5XMlxB3N1tm1tJBi5jbh9EmYVnzJPhnv9mAy24meja0qaBqX3EO1JZL2VUXPdDTcEiR/o3/anFq6 hdQ4+4wAGkEtkfqJsDbm/39vbtdg+OU/548dmHgkm0 nfz/tP1szB5JwjDBYfyaq0u+rTr0M1zBcVYadE4UW1M/prwhyk7Xsn9DlgET7vmsRx0aFyX0isOJZUqI 3DZIkgvWkqx7nUDhy10bxwoR8LR7G156OxpZM8lJN958ut14uo0xD65kOdid1N0f/eQsdSwOrlRgbgZX XsyJ0RcddksG0sG5fiGyhM3TG2UOnp5+7oQlm89J+S gD+octx4ilhYgjEwsk3kD17IpLYRSQ4nBOFL0ayrlbUe6voBt/v2S6FWwf16cbvN1bpu0NDzUZCxszl2 Llcel8ncB43Rsca5XYV8+xG4tP4NhmpfxunTSFGl5yvt/9DFBcwgPyDinqZwBnmZq7VzeL7DTL0q2Oog uiaIXMy++/ejhOHIXAkRvHmowS5wl3jdFf6O2v2Vjc Adeola+OSpE82MbUa2V6kMjIe+Sw4HxbUKWqYUn1jxF+SKdJhfOwXKepkvroCoq/nmMFVZl9iymKCxPYFhE JRQtplyF3i1zn46M+PE4AtTAboON1Z1+Wwqo+lnW+RSOG40gGHJtJrluoy5BDv8orTPt1+YtHQG9l4Zw +CkuVafdm77zrCJBtYt1cmDI6rdlE42N92kRqL30ts JmNkmPnlpU+xW0ioW+2p+senior c software engineer+l8no6+0sArDbJeN91Kf36MqskJdxsGmusm1E3GttSzaobcH4fHr+TFGe [file] AgICAgICAgICAgICAgICAgICAgICAgICAgICAgICAgICAgICAgICAgICAgICAgICAgICAgICAgICAgIC AgICAgICAgICAgICAgICAgICAgDQogICAgICAgICAgICAgICAgICAgICAgICAgICAgICAgICAgICAgIC AgICAgICAgICAgICAgICAgICAgICAgICAgICAgICAg ICAgICAgICAgICAgICAgICAgICAgICAgICAgICAgDQogICAgICAgICAgICAgICAgICAgICAgICAgICAg ICAgICAgICAgICAgICAgICAgICAgICAgICAgICAgICAgICAgICAgICAgICAgICAgICAgICAgICAgICAg ICAgICAgICAgICAgDQogICAgICAgICAgICAgICAgIC AgICAgICAgICAgICAgICAgICAgICAgICAgICAgICAgICAgICAgICAgICAgICAgICAgICAgICAgICAgIC AgICAgICAgICAgICAgICAgICAgICAgDQogICAgICAgICAgICAgICAgICAgICAgICAgICAgICAgICAgIC AgICAgICAgICAgICAgICAgICAgICAgICAgICAgICAg ICAgICAgICAgICAgICAgICAgICAgICAgICAgICAgICAgDQogICAgICAgICAgICAgICAgICAgICAgICAg ICAgICAgICAgICAgICAgICAgICAgICAgICAgICAgICAgICAgICAgICAgICAgICAgICAgICAgICAgICAg ICAgICAgICAgICAgICAgDQogICAgICAgICAgICAgIC AgICAgICAgICAgICAgICAgICAgICAgICAgICAgICAgICAgICAgICAgICAgICAgICAgICAgICAgICAgIC AgICAgICAgICAgICAgICAgICAgICAgICAgDQogICAgICAgICAgICAgICAgICAgICAgICAgICAgICAgIC AgICAgICAgICAgICAgICAgICAgICAgICAgICAgICAg ICAgICAgICAgICAgICAgICAgICAgICAgICAgICAgICAgICAgDQogICAgICAgICAgICAgICAgICAgICAg ICAgICAgICAgICAgICAgICAgICAgICAgICAgICAgICAgICAgICAgICAgICAgICAgICAgICAgICAgICAg ICAgICAgICAgICAgICAgICAgDQogICAgICAgICAgIC AgICAgICAgICAgICAgICAgICAgICAgICAgICAgICAgICAgICAgICAgICAgICAgICAgICAgICAgICAgIC FxVCKrWKIsMXVhCHZeIDGgGSRgVZBuTRXiAZYcWOm7Y9soECYvBFSvIS6sQLu2Io1+PFnQMuJxPGL3zx SouJ7RAA1ca8DgIDylODNuk2KwBTs6XU3BAUXoOHvl HF6XTFdkww4KPATtOBGxbLMAc1cuYhPuLCE2WJBwCrdwNU4IBXJiH9wwqaKyVQAvXKVQRJsmYOHAOJfd GCBLOBEtQEYpHmUsJfSvFRSaXSGdLARXIAG2RZHrOiShELstXU1Gb4JkjUG5JQx+Gf9QLK2ko7RsSMn5 MdBqGH1tdy4REElZLkAeI4AayqM4PDWhFXWuSh5FOS RyRWZooIE5IbLiKGVDOqCrJ7OfjT59BUSPKw3+KEhkkrEbXiiBFeYbJRFcq1CfDDz9KD6NFLZtYVd9gX NwUOOyZ0Dsm4HkUb86DBJjCjtdEpStzj0pEKCwXQFfHYraNYWcJGUoEE8rRM0wUWFnVZEaTeLnHXXAJI 7VKBVcHSPksFZkNBNpOQQVOR5KGYgkXGX8VHSvqjOv sFMqIJlxHO9YDXIwcyAdZMSeQQVNQQh+Wj6XMD2on0RcGUl6UNRyVX7moc9UEDdPVxKeP6L7eJOnW9W1 QMaqEz8KVWOmTUZoZWSdMKUVKFwwGT5QDE0fsuQ3WN0RxHHjHDCcXKDsbANgMUd8Z92okHQfOMbvNB5C ICA+Ron+Qm4COERtGOUkTBWoEsXjOGUZBwTiD8IeT1 NTf6UuU3XlCP22nFnwzlFrMPcbTW7WFG9pPMCvKTEMVF2BkLJbrP8wemF7KmFcQIVCCmJvP15nfFUpHF KrJXVwWIUwQy2UIFWdN8NzdhRonIcefmAiQZKaVTTOKS3KYGpchxEstJGmaPvcRE26zSxoBN2FZh6ODu MfHX4uwd7FmCRzHo2CNNB9YW1BCLHwHOCcZFHbFYP9 IZOsGdDfPOxrZELsBMCaGVS8LYCuDJGzGQ6GUzEoTBNxNlK5ROxwFXIcPUGpea9XRZXeELC2BZJgFtRg CRDpAOSkYOyuAPBnWYNlNPL3NNMvKWTsFV4DJlXrCTTbFDD9YgifXPJjOVDcil8TTAHaSSXpVBd7ZaWx GFJxXKByQFlqZBTnVDC4KGoiJAYkJVVzRZ7SHlCdAO ZrFBkkRAHeQVNrKRNrnk7AHMKhWWYoPBN2NeZoCYIaESQqCPpxOPWrSEYjVyRcMZPsYXPcRQ5KAnYhPK GtXRK0QoIjENJhTJXeut3WOIDeACCgDXLjDJGwWHJmFRZaSNkrVKPnOXX0NSquMVEoSHZoBQ1MOzHjJA SaYCphYZLvSRDiIYDptr2LSFOzUDGbVcN0AfObITMy XEShTJidFTQcWCVaFpC4PSTkOSEgSK4QCtYgVLTvIiN8BAZfQTGlAEUoha0ITFDeYDXxSrF6LMCiXWRk YPEsENxbTEOsYXZ1EEA5LYYzLHEoOO5DSqEvYPWeRdqqNOSkZQOsJRSnru0DPEJsGQNlSlAeNBJhADLc IUKpYRhvESQrULX6Lpd9OAQwSKXaSK1IWkQcNBUpLt r1JBefCMIcPLQyaw0WJAAnQHDsJEg6XeRyWGLuISGdRPgzAIDqWFZhQdJ5MMCqLGTeOV9WSlPaQFPmRP S8HXNqQLJvVNRjnq3BJIGyMRF3KIo8ITLtYPRbBXEkQGfoROYmYOEuPIZmOOGwTBNmXG0PRfTyNCRgDB ShQNhgLIRqTCCzvm9TNTBkOKO3XfF4MOLcGPLuGMLs VQcmHGItVSCwOclqSIFqOCNfFV0VLkJmNFToCDL9EKRpDURwCMRjqh7SXEFqYDK2NNP8UPKkCSDuFJSm EQuyZDZnZAH3GMZlXSRkYDXiZB6FBdRnYSBxOwKmUZdpOJGcUHYyrh1LBJCbPIG6TYm7MgUfYMMpVQVu BYjlNTWsMHyoZOI5ZWPtMVEqLJ1SIqKtAUMkVhPnXd JaJXQlLLMcfn8HTJSmAZN8YiH9YEOiNHSpCCBeIRckOPQfZXjkZOX0ZVJvSONeZI6VHkRgSCJyAsL2Xn IwIMCvZKMfjg3OERMaEQH8ODH6IKEeLQWnUXAuFClrRDSnSCs1JMB6PTUsDQAzKU0YRwIcWQZyEgR1Yb IjCWQaNXUnoq0EuVSkvUgmxy5NILrOIh4LmBuzXCT8 BTswPt2ggAD8GMPtKBJWKm2DnsVkBQZjYXSGLFroCDZbKXr9UpHaVlUwCpE1RwKeXoC5DCtaQRp3TuRf WoMfYJu3BfB6OYA1LzRaWsOcLzn2V9BaCWOoKWX1EAEzCEE3ZFMfOnz+ZR4hZOe+Bl4Ob9OixxC9vhJu WEq0DOquNh4GPJIGK7SKTw== ID Date Data Source [id number] 04/23/2020 10:02:12 AM EDT [facility] Name Value Range Interpretation Code Description Data Joyce rce(s) Supporting Document(s) Progress Note [facility] WBPRHf7oHtLQPkFc12/NKSugTEVwk5BxUCuvFZu2SZphFJSvY4GvIQK5bN5pWPX4LHzFDbBaAaWnEJO1 lbm [file] 4PWvpIMGPYcIATRWFUqJQXrOveqGdtHpdDWUSQ3GmB 1YV1FMO3WOeEaKrLqVaRTvvBV+PKjKiogzJ+vQfvej7d4u4dsvfLnyz+//mf5+/dtfkS0prCyzjXhUc9 xutWXaS6PAD3wACp9OxQ/Vrru4fc+nW1EoEJH1KlI/RyKvvlewbHy5ZzRtMpXMImR57wHHv998ItXGaW QJkwf+H0+V6yn1kDgL/ATD+9+ofpS3WZT1vQYTQyPC X5nFiWh1b3q9l2TMnwWdTPaOpRNx4VrD3TkBOuYI6R693gsPbydSgJp1nQ/qRdMu991NwE52UeTBwgd0 eAkukh4zhtMjyB4ZipBhCc+nzEt53izBMww/L8drcS7BHNHoaaDdlSF7A7I0fb4YkROFGb0JtjKX+AV7 AUTO BODY ESTIMATOR+oqh44Ds855t7BUhEt2kgRoiNdaE7GLJNZOVV2YY [file] PYV1UZVb== ID Date Data Source [id number] 04/23/2020 08:37:56 AM EDT [facility] US BREAST INCLUDING AXILLA COMPLETE LEFT [id number] RESULTInterpreted by:Stevie Wolf MDTARGETED LEFT BREAST ULTRASOUNDHISTORY: Known left breast cancer, evaluation of breast breast retroareolar region and axillaCOMPARISON: Outside mammogram and breast ultrasound 02/05/2020; outside breast MRI 02/23/2020FINDINGS:A 1.8 x 1.6 x 2.3 cm irregular hypoechoic mass at 11:00, 5 cm from the nipple with adjacent clip represents the patient's known breast cancer. A 0.5 x 0.3 x 0.6 cm hypoechoic mass is seen at 11:00, 4 cm from the nipple. A 1.4 x 0.9 x 0.6 cm hypoechoic irregular mass is seen at 11:00, 3 cm from the nipple.Breast tissue in the lower, outer breast demonstrates areas of irregularity to representing to enhancement seen on MRI.No abnormality is seen at the left nipple.No left axillary lymphadenopathy.IMPRESSION: 1. At least 2 irregular masses close to the known cancer at 11:00 likely representing additional cancer. Biopsy may be considered if conservation is being considered.2. Areas of irregularity seen in the lower outer breast likely representing additional disease seen as enhancement on breast MRI. Recommend biopsy if breast conservation is being considered.3. No left axillary lymphadeno reece. BI-RADS 4 - SUSPICIOUS ABNORMALITY, BIOPSY SHOULD BE CONSIDERED.This document has been electronically signed by Stevie Wolf MD on 04/23/2020 8:35 AM Name Value Range Interpretation Code Description Data Joyce rce(s) Supporting Document(s) ID Date Data Source [id number] 04/20/2020 04:40:19 PM EDT [facility] Name Value Range Interpretation Code Description Data Joyce rce(s) Supporting Document(s) Progress Note [facility] WPRCNp4kSvULPnZg18/YWPztVCZgu3YxOIdgCGq9MHbbRVTsX4YkJPG1vJ0nDJJ8JOkZAvFzRrIkTQBb [facility] [file] ICAgICAgICAgICAgICAgICAgICAgICAgICAgICAgICAgICAgICAgICAgICAgICAgICAgICAgICAgICAg KVElVWPgSRKgNSSiCJOdLB0VURFiPOFtMSSmCZBmPBXzPSSyABHaXSDsDKSfHQPuYUPqSDUbESPgULOs ICAgICAgICAgICAgICAgICAgICAgICAgICAgICAgIC AmLUZsFTMcRQGrDWHpJAWtDIUaCHKqCGTyNV6JZGPnRPGhTHHrODNeEJArIMGsYDKdKKFtUIIgORZzDB AgICAgICAgICAgICAgICAgICAgICAgICAgICAgICAgICAgICAgICAgICAgICAgICAgICAgICAgICAgIC WmDVWfYWZzUJ8RAPBhXRNwHCWtGAQqSXYbUJRtFBRv ICAgICAgICAgICAgICAgICAgICAgICAgICAgICAgICAgICAgICAgICAgICAgICAgICAgICAgICAgICAg ZTWcCNCtLKMaTQAtDHOwQDDcFW9KXTUzEGWeLGAyWRUkBNYfFYTeFMAoOYOtTHFqTLRiMCOsORLjDHTh ICAgICAgICAgICAgICAgICAgICAgICAgICAgICAgIC KsHOYtTOVmUXPvMWSaIOOuAQDhCRFpXOZnDDHdYV0SQLZfLIOqBSBeNXYgPVQpJNOfEOGvSNNyIOUgXB AgICAgICAgICAgICAgICAgICAgICAgICAgICAgICAgICAgICAgICAgICAgICAgICAgICAgICAgICAgIC QvLSPrBGIkFVRpLI9IZPCwFPJyMSJyGNSpGGUpVPBp ICAgICAgICAgICAgICAgICAgICAgICAgICAgICAgICAgICAgICAgICAgICAgICAgICAgICAgICAgICAg QRUeGKLsTUMxMJPcLREtTXSrNFFnUL0BEPExTORrVLRuBOMeOKOrKYTpBNAmNWVpAZLfLVEaMZGsKOGf ICAgICAgICAgICAgICAgICAgICAgICAgICAgICAgIC IsUPWxEJVfHKOfUPPhBWBvWFOxHKBxFUDpKZIlFYDjAU1GIZVcLDEiQYXxITQlXFBtTFAdFBJkFHOmAU AgICAgICAgICAgICAgICAgICAgICAgICAgICAgICAgICAgICAgICAgICAgICAgICAgICAgICAgICAgIC VhWEZiUDPoURXdOULsQA3CKBJoMVHvJLDpNEZtDYPc ICAgICAgICAgICAgICAgICAgICAgICAgICAgICAgICAgICAgICAgICAgICAgICAgICAgICAgICAgICAg PLXeHVJmIRKqPIZkQYZkTYYoGCNhUPOwON4LEH58lKKta5F6HQSuGB1yeqe/Wl3XBIxvlbTsoRSaUY0Z XbMcGO4mma2GUlZhYZ9svr6WUTpLEuUsF0M3eSVqVC CiDNTYXaJmP77zQHedFn43OXluXYNfWoBrQFn4Vs5XUfSeG9ziVVEbWsT2AZXkArY2KASqFgIbMABxHT ThFEPwPCEAGHN1STTwYsKeDUcvYL4Bk9QjxYM8MBs+Ct0JZL9it5QxPIdfHEVmHZ8hdn5QEViNKaMcA6 PxbpN9CKO5TYWeDh4GUTDlLJZfhTNvBCVnIGJZHxOz Z1UfyV11PRSMKi3+NPtatpEaGzaSVpR5TASuw2KfYHe9JQ6OGVMqDIw5nTMgVGCzP7Yth9EzSf35OBPa WmkbRDkxPHjyrsqyUSCYNlNWFHL8KIglMBWkXoZkACJjNSdkCMUFWAwYXsBqY7Unf4YcYzY2BFErYgGo BSniSREiOpU6MB26vDlzLD2WUSMfDRMwFY16OXX3WO BfRx1UEq1YVyMsUW6gpa9YZaMdUT8qml3CCFoIOnAsK4K4jAWcM9Lrjz45OK7TgHS4oMQpIO4AxG4jTQ 0Eb5ZuISOoFcDqJYWfFLBbRJYmYALjTrSbUT2WCBEfCrIaqAPtHVEyZRUrOCGoYxS8NfbgEX1CJZTpFS Z6PY2VOK3HUwoeB4TQHGkhhQurLgZLIFG/QUNUSVZJ KQfuCVCwC16ZD8ZLOZkHYdsmLLjEWindBu9gMXg+Nr5TBM1nn7EpXDkrGmWfHH2scz1HZMzRXpDaZ1W5 aONuM1S4PXvoUa6ESUYvBXIkAwIkJIRXRMlhAY5JLH4dnzH9ZN7LfQRrHFVfOCSyvUGbWQx8V86omFWf LTdmZE0SCKV+Ron+Av5ISZVzSOOqUVXyGyLbXKRAAx ExK9DiN2WXq0MtR0EqAB60tWgjeyYoGOehHC6ANQ5jSBMlFYPQSY8XqGIbiV7kfjLlESGoOSBUOoIdT2 2nlLGzECKqWFDzMNYfTj4MXACdH8ApifJpkQilcsSiGJXrTVDKSI1BANtkaeCozHYdoRcaTX72jRibPS 2NVe5RMeJlYG4lfm2SeDUwTp0UJNMuVf7XVCSaSFYl MOVqKRY7UWQyBfUfLSqfDOJlEMHiAVZ6UOHgDVPaYZ4TCxWyFKGxZMA1EYnhVDAzARGytr6WTWBoSGS2 DmB5MWIcMAQmMNDpZCjbZMYnRXUxCSR9EOSzMAFfFJ5OOkScCWVeIQGhHMYtPKNtGUGofy1XXIKcBEJ3 VcmqXAPoYPXjJPXuLMtgJKGrQXZ0UhynMPCyBIUsXW 7CYeYvNHKqBWvfKMGnBLRqCTKlsi4NGWVeOUWmKbC0IqMmYTDvXXOvFUyaFYGzZPE3APQ9NCVtFFLgSX 2MTfWgPBZoJGIkNiTaPDBhBWBcdl0POIPvVLBbTrCwXAMyOHHqAHOgTNycRXBfGAVvYaY1WFYmGWHgAI 9WVsHrUQYmRFKrFpLkPZZdTUVacp2ANHCzEVGmFDMt FcIkWWNuPFWiJOgaCNYpCMX5IDs6ZULpDSTzRV0VYmCpNUTvDEVfYTBqSTKeLUShcj9IJELyLBDvRxI5 CaAtOLIbURNnBCosIWIpTQI0DTV0EBInGJTrWH5KGrOgDZYcZMs2EfhuXKBoVTCqcn7SPLJtVILkFhbc NtYfCKMsNGGmSZgdTXSuCKO6DSE9ZWVzONJxMP5BXu RuRRZuZjkuUpccNHCiDURjrw1RZCHnSXDpHXH3LlCaZQAtMAIfTGhvBGPlYPF5EVHvIXQfDMKpHK9ORr DoWJFcCfogDjbnHZFnECKcyc7TKFQhOVT0LOLmAxYoLGKwOLLoEMfqIDTuGYUeAsFjRKSgTPCwTW7ODd HnQOLvOWIxOEpfMODlKOJgip3XKHPxSVE2HACbKnOh QOOlRVTwCOykHCTtKQDxKZB6HXVnUONlHO1TUjWaDPFlLLH8VUOlBTCtLMVzpp6DEZFfCDZ4WgPtGNEr EFQoPGNuROfhJYNlWYDcNYlvDDRdEZBvZW8UDwLlPIJjCEG1NHMiKAAoCYEtar4RXCLqBMS3Vhm5SdKd GJQyNNNtJWp6idGxtBNtIIj3CF6MD4NldbTbChkPKg 2Eq068IFI8GYXuZw2AX5xcEc9uMDCdNSKXXs5BFOf6GVC0GVWoZIT4QKP5N8RcMQX5JvT0WSY2FCmmTO hlMjg+ANc8ZkV5YDG0VbpoJNkmHfIcUfytRwzwOqFtOwA7VQRoAX7xVHESFe7+DQpzdGFydHhyZWYNCj L8VuXvADzzNMIQLv7R ID Date Data Source [id number] 04/19/2020 03:08:45 PM EDT [facility] Name Value Range Interpretation Code Description Data Joyce rce(s) Supporting Document(s) Progress Note [facility] ZJFANz6oDwPRQgFc10/VFHzuRCCah9HnYDwqMSe7PBlhKAWnS4DvHJQ6gB4kTJR8JFzCXmQhWkTbZJTj lbm [file] [id number]= ID Date Data Source [id number] 04/19/2020 02:34:05 PM EDT [facility] Name Value Range Interpretation Code Description Data Joyce rce(s) Supporting Document(s) Progress Note [facility] KCBCOm0mNvFWKqNl27/YHOxpIZCux2UrLJbtYJc3WGbbJLZwT0AkZPB9bJ2vFLY5CVeNEgOgGnMfTNHz lbm [file] [id number] ID Date Data Source [id number] 04/18/2020 08:21:00 AM EDT [facility] ([facility]) Name Value Range Interpretation Code Description Data Joyce rce(s) Supporting Document(s) FVC-Pred 3.46 L [facility] ([facility]) PDFReport Laboratory test result [facility] ([facility]) FVC-Pre 3.35 L [facility] ([facility]) FVC-LLN 2.78 L [facility] ([facility]) FVC-%Pred-Pre 96 L [facility] ([facility]) Fev1-Pre 2.61 L [facility] ([facility], ) Fev1-Pred 2.76 L [facility] ([facility], ) Fev1-%Pred-Pre 94 L [facility] ([facility], ) Fev1-LLN 2.19 L [facility] ([facility]) Fev6-%Pred-Pre 99 L [facility] ([facility], ) Fev6-Pre 3.35 L [facility] ([facility], ) Fev6-Pred 3.37 L [facility] ([facility]) Koc6dvj-Fug 78 % [facility] ([facility]) Lka9blh-Swcr 81 % [facility] ([facility]) Fev6-LLN 2.71 L [facility] ([facility]) Xdh8qoa-Ghah 98 % [facility] ([facility]) Dqn6dpw-%Pred-Pre 96 % [facility] ([facility]) Erb7kgd-TON 71 % [facility] ([facility]) Wmr7hlu-%Pred-Pre 102 % [facility] ([facility]) FEFMax-Pred 6.65 L/E/sec [facility] ([facility]) Kfj9gnn-Grz 100 % [facility] ([facility]) FEFMax-%Pred-Pre 89 L/E/sec [facility] ([facility]) FEFMax-Pre 5.97 L/E/sec [facility] ([facility]) FEFMax-LLN 4.98 L/E/sec [facility] ([facility]) [id number]-Uxcn 2.78 L/E/sec [facility] ([facility]) Hrz5109-Nvx 2.31 L/E/sec [facility] ([facility]) Pvw8246-REL 1.58 L/E/sec [facility] ([facility]) Rbj6727-%Pred-Pre 83 L/E/sec [facility] ([facility], ) ExpTime-Pre 6.10 sec [facility] ([facility]) Rxk5bcf8-Dsv 78 % [facility] ([facility]) Nyy2bdk5-Ffnl 83 % [facility] ([facility], ) Zno9lvh4-%Pred-Pre 94 % [facility] ([facility], ) Dgb1pho9-DXI 74 % [facility] ([facility]) ID Date Data Source [id number] 04/19/2020 05:55:00 PM [facility] Surgical Pathology ReportName: POLO RAMIREZMRN: [id number] Number: [id number] Date: 04/12/2020 00:00Received Date: 04/12/2020 12:57Physician(s): MARNIE MAGUIRE MD LAI, LISA M, MDSpecimen(s) ReceivedA: Slides received for consultationClinical HistoryBreast biopsy for second opinion.DiagnosisBREAST, LEFT MASS, CORE BIOPSY (OUTSIDE SLIDES [id number]; 02/07/20): INVASIVEDUCTAL CARCINOMA.GRADE: 3.VASCULAR INVASION: Absent.DCIS: Absent. CALCIFICATIONS: Present.ESTROGEN RECEPTORS: Low Positive (1-10%) (per [id number]).PROGESTERONE RECEPTORS: Positive (moderate/weak, 90%) (per [id number]).HER2: Positive (3+) (per [id number]).Electronically Signed By Christiano Helton MD;, Attending Pathologist04/19/2020 17:55:37 Unless 'gross-only' is specified, the final diagnosis is based on amicroscopic examination of ambulatory services representative sections of tissue.Gross Description[facility] [place], [place], are 2 H and E stainedslides labeled [id number], with the corresponding pathology report. This report may include one or more immunohistochemical stain results thatuse analyte specific reagents. All positive and negative controls havebeen reviewed by the attending pathologist and are satisfactory. The testswere developed and their performance characteristics determined by [facility] Pathology department. They have not been cleared or approved by the USFood and Drug Administration. The FDA has determined that such clearanceor approval is not necessary. Name Value Range Interpretation Code Description Data Joyce rce(s) Supporting Document(s) Procedure Social History Code Duration Value Status Description Data Source(s ) Alcohol intake 04/22/2021 12:00:00 AM EDT Ex-drinker (finding) comp leted Ex- drinker (finding) [facility] Tobacco use and exposure 04/22/2021 12:00:00 AM EDT Never used co mpleted Never used [facility] Cigarette pack-years 04/22/2021 12:00:00 AM EDT UNK completed [facility] Cigarettes smoked current (pack per day) - Reported 04/22/20 12:00:00 AM EDT UNK [facility] Smoking 04/22/2021 12:00:00 AM EDT Current every day smoker co mpleted Current every day smoker [facility] Alcohol intake 04/02/2021 12:00:00 AM EDT Ex-drinker (finding) comp leted Ex- drinker (finding) [facility] Alcohol intake 01/09/2021 12:00:00 AM EDT Ex-drinker (finding) comp leted Ex- drinker (finding) [facility] Smoking 12/31/2020 12:00:00 AM EDT Current Smoker completed Curre nt Smoker eCW1 ([facility]) Smoking 12/31/2020 12:00:00 AM EDT Current Smoker completed Curre nt Smoker eCW1 ([facility]) Smoking 12/31/2020 12:00:00 AM EDT Current Smoker completed Curre nt Smoker eCW1 ([facility]) Alcohol intake 12/27/2020 12:00:00 AM EDT Ex-drinker (finding) comp leted Ex- drinker (finding) [facility] Smoking 12/24/2020 12:00:00 AM EDT Current Smoker completed Curre nt Smoker eCW1 ([facility]) Smoking 12/17/2020 12:00:00 AM EDT Current Smoker completed Curre nt Smoker eCW1 ([facility]) Smoking 12/03/2020 12:00:00 AM EDT Current Smoker completed Curre nt Smoker eCW1 ([facility]) Alcohol intake 11/28/2020 12:00:00 AM EDT Ex-drinker (finding) comp leted Ex- drinker (finding) [facility] Alcohol intake 10/17/2020 12:00:00 AM EST Ex-drinker (finding) comp leted Ex- drinker (finding) [facility] Alcohol intake 10/02/2020 12:00:00 AM EST Ex-drinker (finding) comp leted Ex- drinker (finding) [facility] Alcohol intake 09/24/2020 12:00:00 AM EST Ex-drinker (finding) comp leted Ex- drinker (finding) [facility] Alcohol intake 09/10/2020 12:00:00 AM EST Ex-drinker (finding) comp leted Ex- drinker (finding) [facility] Alcohol intake 09/04/2020 12:00:00 AM EST Ex-drinker (finding) comp leted Ex- drinker (finding) [facility] Alcohol intake 08/08/2020 12:00:00 AM EST Ex-drinker (finding) comp leted Ex- drinker (finding) [facility] Alcohol intake 07/18/2020 12:00:00 AM EST Ex-drinker (finding) comp leted Ex- drinker (finding) [facility] Alcohol intake 07/09/2020 12:00:00 AM EST Ex-drinker (finding) comp leted Ex- drinker (finding) [facility] Smoking 07/01/2020 12:00:00 AM EST Current Smoker completed Curre nt Smoker eCW1 ([facility]) Smoking 07/01/2020 12:00:00 AM EST Current Smoker completed Curre nt Smoker eCW1 ([facility]) Smoking 07/01/2020 12:00:00 AM EST Current Smoker completed Curre nt Smoker eCW1 ([facility]) Smoking 07/01/2020 12:00:00 AM EST Current Smoker completed Curre nt Smoker eCW1 ([facility]) Smoking 07/01/2020 12:00:00 AM EST Current Smoker completed Curre nt Smoker eCW1 ([facility]) Alcohol intake 06/27/2020 12:00:00 AM EST Ex-drinker (finding) comp leted Ex- drinker (finding) [facility] Alcohol intake 06/06/2020 12:00:00 AM EDT Ex-drinker (finding) comp leted Ex- drinker (finding) [facility] Alcohol intake 05/15/2020 12:00:00 AM EDT Ex-drinker (finding) comp leted Ex- drinker (finding) [facility] Alcohol intake 05/07/2020 12:00:00 AM EDT Ex-drinker (finding) comp leted Ex- drinker (finding) [facility] Alcohol intake 04/19/2020 12:00:00 AM EDT Ex-drinker (finding) comp leted Ex- drinker (finding) [facility] Vital Signs ID Date Data Source UNK Name Value Range Interpretation Code Description Data Source(s) Body height 63 [in_i] 63 [in_i] VENICE ([facility]) Diastolic blood pressure 86 mm[Hg] 86 mm[Hg] REZA ([facility]) Body height 63 [in_i] 63 [in_i] REZA ([facility]) Systolic blood pressure 127 mm[Hg] 127 mm[Hg] A [facility] ([facility]) Diastolic blood pressure 86 mm[Hg] 86 mm[Hg] REZA ([facility]) Body height 63 [in_i] 63 [in_i] REZA ([facility]) Systolic blood pressure 127 mm[Hg] 127 mm[Hg] A THENA ([facility]) Body temperature 98.0 [degF] 98.0 [degF] eCW1 ( [facility]) Systolic blood pressure 118 mm[Hg] 118 mm[Hg] e CW1 ([facility]) Diastolic blood pressure mm[Hg] eCW1 ([facility]) Body weight 174 [lb_av] 174 [lb_av] [facility] Body weight kg eCW1 ([facility]) Body height 63.5 [in_i] 63.5 [in_i] eCW1 [facility] Body mass index (BMI) [Ratio] 30.34 kg/m2 30.34 kg/m2 eCW1 ([facility]) Heart rate 112 /min 112 /min W1 ([facility]ly [facility], 1928–1983) Respiratory rate 20 /min 20 /min eCW1 ([facility]) Body weight 172 [lb_av] 172 [lb_av] eCW1 ([facility] Body mass index (BMI) [Ratio] 29.99 kg/m2 29.99 kg/m2 eCW1 ([facility]) Heart rate 106 /min 106 /min eCW1 ([facility], 1928–1983) Respiratory rate 18 /min 18 /min eCW1 ([facility]) Systolic blood pressure 158 mm[Hg] 158 mm[Hg] e CW1 ([facility]) Diastolic blood pressure 78 mm[Hg] 78 mm[Hg] eCW1 ([facility]) Body height 63.5 [in_i] 63.5 [in_i] eCW1 ([facility] Body temperature 92 [degF] 92 [degF] eCW1 ([facility]) Body weight 172 [lb_av] 172 [lb_av] eCW1 ([facility]) Body height 63.5 [in_i] 63.5 [in_i] eCW1 ([facility]) Body mass index (BMI) [Ratio] 29.99 kg/m2 29.99 kg/m2 eCW1 ([facility]) Heart rate 103 /min 103 /min eCW1 ([facility], 1928–[facility]) Respiratory rate 16 /min 16 /min eCW1 ([facility]) Body temperature 98.1 [degF] 98.1 [degF] eCW1 ( [facility]) Systolic blood pressure 126 mm[Hg] 126 mm[Hg] e CW1 ([facility]) Diastolic blood pressure 73 mm[Hg] 73 mm[Hg] eCW1 ([facility]) Body weight 172 [lb_av] 172 [lb_av] eCW1 ([facility] Body height 63.5 [in_i] 63.5 [in_i] eCW1 ([facility] Body mass index (BMI) [Ratio] 29.99 kg/m2 29.99 kg/m2 eCW1 ([facility]) Heart rate 87 /min 87 /min eCW1 ([facility], 1928[facility]) Respiratory rate 18 /min 18 /min eCW1 ([facility]) Body temperature 96.2 [degF] 96.2 [degF] eCW1 ( [facility]) Systolic blood pressure 128 mm[Hg] 128 mm[Hg] e CW1 ([facility]) Diastolic blood pressure 81 mm[Hg] 81 mm[Hg] eCW1 ([facility]) Diastolic blood pressure 81 mm[Hg] 81 mm[Hg] REZA ([facility]) Body height 63 [in_i] 63 [in_i] REZA ([facility]) Body mass index (BMI) [Ratio] 29.8 kg/m2 29.8 k g/m2 REZA ([facility]) Systolic blood pressure 131 mm[Hg] 131 mm[Hg] A THEN ([facility]) Body weight 2694 [oz_av] 2694 [oz_av] REZA ([facility]) Diastolic blood pressure 81 mm[Hg] 81 mm[Hg] REZA ([facility]) Body height 63 [in_i] 63 [in_i] REZA ([facility]) Body mass index (BMI) [Ratio] 29.8 kg/m2 29.8 k g/m2 REZA ([facility]) Systolic blood pressure 131 mm[Hg] 131 mm[Hg] A THENA ([facility]) Body weight 2694 [oz_av] 2694 [oz_av] REZA ([facility]) Diastolic blood pressure 81 mm[Hg] 81 mm[Hg] REZA ([facility]) Body height 63 [in_i] 63 [in_i] REZA ([facility]) Body mass index (BMI) [Ratio] 29.8 kg/m2 29.8 k g/m2 REZA ([facility]) Systolic blood pressure 131 mm[Hg] 131 mm[Hg] A THEN ([facility]) Body weight 2694 [oz_av] 2694 [oz_av] REZA ([facility]) Diastolic blood pressure 87 mm[Hg] 87 mm[Hg] REZA ([facility]) Body height 63 [in_i] 63 [in_i] REZA ([facility]) Body mass index (BMI) [Ratio] 28.5 kg/m2 28.5 k g/m2 REZA ([facility]) Systolic blood pressure 131 mm[Hg] 131 mm[Hg] A THENA ([facility]) Body weight 2578 [oz_av] 2578 [oz_av] REZA ([facility]) Diastolic blood pressure 87 mm[Hg] 87 mm[Hg] REZA ([facility]) Body height 63 [in_i] 63 [in_i] REZA ([facility]) Body mass index (BMI) [Ratio] 28.5 kg/m2 28.5 k g/m2 REZA ([facility]) Systolic blood pressure 131 mm[Hg] 131 mm[Hg] A THENA ([facility]) Body weight 2578 [oz_av] 2578 [oz_av] REZA ([facility]) Diastolic blood pressure 87 mm[Hg] 87 mm[Hg] REZA ([facility]) Body height 63 [in_i] 63 [in_i] REZA ([facility]) Body mass index (BMI) [Ratio] 28.5 kg/m2 28.5 k g/m2 REZA ([facility]) Systolic blood pressure 131 mm[Hg] 131 mm[Hg] A THENA ([facility]) Body weight 2578 [oz_av] 2578 [oz_av] REZA ([facility]) Diastolic blood pressure 87 mm[Hg] 87 mm[Hg] REZA ([facility]) Body height 63 [in_i] 63 [in_i] REZA ([facility]) Body mass index (BMI) [Ratio] 28.5 kg/m2 28.5 k g/m2 REZA ([facility]) Systolic blood pressure 131 mm[Hg] 131 mm[Hg] A THENA ([facility]) Body weight 2578 [oz_av] 2578 [oz_av] REZA ([facility]) Diastolic blood pressure 87 mm[Hg] 87 mm[Hg] REZA ([facility]) Body height 63 [in_i] 63 [in_i] REZA ([facility]) Body mass index (BMI) [Ratio] 28.5 kg/m2 28.5 k g/m2 REZA ([facility]) Systolic blood pressure 131 mm[Hg] 131 mm[Hg] A THENA ([facility]) Body weight 2578 [oz_av] 2578 [oz_av] REZA ([facility]) Diastolic blood pressure 87 mm[Hg] 87 mm[Hg] REZA ([facility]) Body height 63 [in_i] 63 [in_i] REZA ([facility]) Body mass index (BMI) [Ratio] 28.5 kg/m2 28.5 k g/m2 REZA ([facility]) Systolic blood pressure 131 mm[Hg] 131 mm[Hg] A THENA ([facility]) Body weight 2578 [oz_av] 2578 [oz_av] REZA ([facility]) Diastolic blood pressure 90 mm[Hg] 90 mm[Hg] REZA ([facility]) Body height 63 [in_i] 63 [in_i] REZA ([facility]) Body mass index (BMI) [Ratio] 28.5 kg/m2 28.5 k g/m2 REZA ([facility]) Systolic blood pressure 119 mm[Hg] 119 mm[Hg] A THENA ([facility]) Body weight 2576 [oz_av] 2576 [oz_av] REZA ([facility]) Diastolic blood pressure 90 mm[Hg] 90 mm[Hg] REZA ([facility]) Body height 63 [in_i] 63 [in_i] REZA ([facility]) Body mass index (BMI) [Ratio] 28.5 kg/m2 28.5 k g/m2 REZA ([facility]) Systolic blood pressure 119 mm[Hg] 119 mm[Hg] A THENA ([facility]) Body weight 2576 [oz_av] 2576 [oz_av] REZA ([facility]) Diastolic blood pressure 90 mm[Hg] 90 mm[Hg] REZA ([facility]) Body height 63 [in_i] 63 [in_i] REZA ([facility]) Body mass index (BMI) [Ratio] 28.5 kg/m2 28.5 k g/m2 REZA ([facility]) Systolic blood pressure 119 mm[Hg] 119 mm[Hg] A THENA ([facility]) Body weight 2576 [oz_av] 2576 [oz_av] REZA ([facility]) Diastolic blood pressure 90 mm[Hg] 90 mm[Hg] REZA ([facility]) Body height 63 [in_i] 63 [in_i] REZA ([facility]) Body mass index (BMI) [Ratio] 28.5 kg/m2 28.5 k g/m2 REZA ([facility]) Systolic blood pressure 119 mm[Hg] 119 mm[Hg] A THENA ([facility]) Body weight 2576 [oz_av] 2576 [oz_av] REZA ([facility]) Diastolic blood pressure 90 mm[Hg] 90 mm[Hg] REZA ([facility]) Body height 63 [in_i] 63 [in_i] REZA ([facility]) Body mass index (BMI) [Ratio] 28.5 kg/m2 28.5 k g/m2 REZA ([facility]) Systolic blood pressure 119 mm[Hg] 119 mm[Hg] A THENA ([facility]) Body weight 2576 [oz_av] 2576 [oz_av] REZA ([facility]) Diastolic blood pressure 90 mm[Hg] 90 mm[Hg] REZA ([facility]) Body height 63 [in_i] 63 [in_i] REZA ([facility]) Body mass index (BMI) [Ratio] 28.5 kg/m2 28.5 k g/m2 REZA ([facility]) Systolic blood pressure 119 mm[Hg] 119 mm[Hg] A THENA ([facility]) Body weight 2576 [oz_av] 2576 [oz_av] REZA ([facility]) Diastolic blood pressure 90 mm[Hg] 90 mm[Hg] REZA ([facility]) Body height 63 [in_i] 63 [in_i] REZA ([facility]) Body mass index (BMI) [Ratio] 28.5 kg/m2 28.5 k g/m2 REZA ([facility]) Systolic blood pressure 119 mm[Hg] 119 mm[Hg] A THENA ([facility]) Body weight 2576 [oz_av] 2576 [oz_av] REZA ([facility]) Diastolic blood pressure 90 mm[Hg] 90 mm[Hg] REZA ([facility]) Body height 63 [in_i] 63 [in_i] REZA ([facility]) Body mass index (BMI) [Ratio] 28.5 kg/m2 28.5 k g/m2 REZA ([facility]) Systolic blood pressure 119 mm[Hg] 119 mm[Hg] A THENA ([facility]) Body weight 2576 [oz_av] 2576 [oz_av] REZA ([facility]) Diastolic blood pressure 90 mm[Hg] 90 mm[Hg] REZA ([facility]) Body height 63 [in_i] 63 [in_i] REZA ([facility]) Body mass index (BMI) [Ratio] 28.5 kg/m2 28.5 k g/m2 REZA ([facility]) Systolic blood pressure 119 mm[Hg] 119 mm[Hg] A THENA ([facility]) Body weight 2576 [oz_av] 2576 [oz_av] REZA ([facility]) Diastolic blood pressure 71 mm[Hg] 71 mm[Hg] REZA ([facility]) Body height 63 [in_i] 63 [in_i] REZA ([facility]) Body mass index (BMI) [Ratio] 27.45 kg/m2 27.45 kg/m2 REZA ([facility]) Systolic blood pressure 113 mm[Hg] 113 mm[Hg] A THENA ([facility]) Body weight 2470.08 [oz_av] 2470.08 [oz_av] ATH BOLA ([facility]) Diastolic blood pressure 71 mm[Hg] 71 mm[Hg] REZA ([facility]) Body height 63 [in_i] 63 [in_i] REZA ([facility]) Body mass index (BMI) [Ratio] 27.45 kg/m2 27.45 kg/m2 REZA ([facility]) Systolic blood pressure 113 mm[Hg] 113 mm[Hg] A THENA ([facility]) Body weight 2470.08 [oz_av] 2470.08 [oz_av] ATH BOLA ([facility]) Diastolic blood pressure 71 mm[Hg] 71 mm[Hg] REZA ([facility]) Body height 63 [in_i] 63 [in_i] REZA ([facility]) Body mass index (BMI) [Ratio] 27.45 kg/m2 27.45 kg/m2 REZA ([facility]) Systolic blood pressure 113 mm[Hg] 113 mm[Hg] [facility] Body weight 2470.08 [oz_av] 2470.08 [oz_av] ATH BOLA ([facility]) Diastolic blood pressure 71 mm[Hg] 71 mm[Hg] REZA ([facility]) Body height 63 [in_i] 63 [in_i] REZA ([facility]) Body mass index (BMI) [Ratio] 27.45 kg/m2 27.45 kg/m2 REZA ([facility]) Systolic blood pressure 113 mm[Hg] 113 mm[Hg] A THENA ([facility]) Body weight 2470.08 [oz_av] 2470.08 [oz_av] ATH BOLA ([facility]) Systolic blood pressure 113 mm[Hg] 113 mm[Hg] A THENA ([facility]) Body weight 2470.08 [oz_av] 2470.08 [oz_av] ATH BOLA ([facility]) Diastolic blood pressure 71 mm[Hg] 71 mm[Hg] REZA ([facility]) Body height 63 [in_i] 63 [in_i] REZA ([facility]) Body mass index (BMI) [Ratio] 27.45 kg/m2 27.45 kg/m2 REZA ([facility]) Diastolic blood pressure 71 mm[Hg] 71 mm[Hg] REZA ([facility]) Body height 63 [in_i] 63 [in_i] REZA ([facility]) Body mass index (BMI) [Ratio] 27.45 kg/m2 27.45 kg/m2 REZA ([facility]) Systolic blood pressure 113 mm[Hg] 113 mm[Hg] [facility]) Body weight 2470.08 [oz_av] 2470.08 [oz_av] ATH BOLA ([facility]) Diastolic blood pressure 71 mm[Hg] 71 mm[Hg] REZA ([facility]) Body height 63 [in_i] 63 [in_i] REZA ([facility]) Body mass index (BMI) [Ratio] 27.45 kg/m2 27.45 kg/m2 REZA ([facility]) Systolic blood pressure 113 mm[Hg] 113 mm[Hg] [facility]) Body weight 2470.08 [oz_av] 2470.08 [oz_av] ATH BOLA ([facility]) Diastolic blood pressure 71 mm[Hg] 71 mm[Hg] REZA ([facility]) Body height 63 [in_i] 63 [in_i] REZA ([facility]) Body mass index (BMI) [Ratio] 27.45 kg/m2 27.45 kg/m2 REZA ([facility]) Systolic blood pressure 113 mm[Hg] 113 mm[Hg] A THENA ([facility]) Body weight 2470.08 [oz_av] 2470.08 [oz_av] ATH BOLA ([facility]) Diastolic blood pressure 71 mm[Hg] 71 mm[Hg] REZA ([facility]) Body height 63 [in_i] 63 [in_i] REZA ([facility]) Body mass index (BMI) [Ratio] 27.45 kg/m2 27.45 kg/m2 REZA ([facility]) Systolic blood pressure 113 mm[Hg] 113 mm[Hg] [facility]) Body weight 2470.08 [oz_av] 2470.08 [oz_av] ATH BOLA ([facility]) Body height 63 [in_i] 63 [in_i] [facility] ([facility]) 5'3" Oxygen saturation in Arterial blood by Pulse oximetry 97 % 97 % [facility] ([facility]) Body weight 153.00 [lb_av] 153.00 [lb_av] MEDEN T ([facility]) Body mass index (BMI) [Ratio] 27.1 kg/m2 27.1 k g/m2 [facility] ([facility]) Body temperature 95.6 [degF] 95.6 [degF] [facility] ([facility]) [place] body weight 115 [lb_av] 115 [lb_av] [facility] ([facility]) Body surface area Derived from formula 1.73 m2 1.73 m2 [facility] ([facility]) Body weight 69.401 kg 69.401 kg [facility] ([facility]) Systolic blood pressure 152 mm[Hg] 152 mm[Hg] [facility] Diastolic blood pressure 88 mm[Hg] 88 mm[Hg] [facility] ([facility]) Heart rate 96 /min 96 /min [facility] ([facility]) Oxygen saturation in Arterial blood by Pulse oximetry 97 % 97 % [facility] ([facility]) Body temperature 95.6 [degF] 95.6 [degF] [facility] ([facility]) Body height 63 [in_i] 63 [in_i] [facility] ([facility]) 5'3" Body mass index (BMI) [Ratio] 27.1 kg/m2 27.1 k g/m2 [facility] ([facility]) [place] body weight 115 [lb_av] 115 [lb_av] [facility] ([facility]) Body weight 69.401 kg 69.401 kg [facility] ([facility]) Body surface area Derived from formula 1.73 m2 1.73 m2 [facility] ([facility] ) Body weight 153.00 [lb_av] 153.00 [lb_av] [facility] ([facility]) ID Date Data Source [id number] 05/01/2021 05:15:15 PM EDT [facility] Name Value Range Interpretation Code Description Data Source(s) WEIGHT RECORDED 178 lb 178 lb [facility] ID Date Data Source [id number] 04/10/2021 04:45:54 PM EDT [facility] Name Value Range Interpretation Code Description Data Source(s) WEIGHT RECORDED 178.8 lb 178.8 lb [facility] ID Date Data Source [id number] 01/20/2021 02:46:54 PM EDT [facility] Value Range Interpretation Code Description Data Source(s) WEIGHT RECORDED 176 lb 176 lb [facility] ID Date Data Source [id number] 01/09/2021 03:20:43 PM EDT [facility] Value Range Interpretation Code Description Data Source(s) WEIGHT RECORDED 172.8 lb 172.8 lb [facility] ID Date Data Source [id number] 01/03/2021 10:07:50 AM EDT [facility] Value Range Interpretation Code Description Data Source(s) WEIGHT RECORDED 173 lb 173 lb [facility] ID Date Data Source [id number] 12/19/2020 03:13:51 PM EDT [facility] Name Value Range Interpretation Code Description Data Source(s) WEIGHT RECORDED 171 lb 171 lb [facility] ID Date Data Source [id number] 12/10/2020 12:35:09 PM EDT [facility] Name Value Range Interpretation Code Description Data Source(s) WEIGHT RECORDED 172 lb 172 lb [facility] Body height Measured 63 in 63 in [facility] ID Date Data Source [id number] 12/04/2020 06:55:32 AM EDT [facility] Name Value Range Interpretation Code Description Data Source(s) WEIGHT RECORDED 171 lb 171 lb [facility] ID Date Data Source [id number] 10/21/2020 04:51:57 AM EDT [facility] Name Value Range Interpretation Code Description Data Source(s) WEIGHT RECORDED 164 lb 164 lb [facility] Body height Measured 63 in 63 in [facility] ID Date Data Source [id number] 10/03/2020 06:34:57 PM [facility] Name Value Range Interpretation Code Description Data Source(s) WEIGHT RECORDED 155 lb 155 lb [facility] Body height Measured 63 in 63 in [facility] WEIGHT RECORDED 157 lb 157 lb [facility] Body height Measured 63 in 63 in [facility] ID Date Data Source [id number] 09/25/2020 10:17:45 PM [facility] Name Value Range Interpretation Code Description Data Source(s) WEIGHT RECORDED 157 lb 157 lb [facility] Body height Measured 63 in 63 in [facility] ID Date Data Source [id number] 09/12/2020 12:42:36 PM [facility] Value Range Interpretation Code Description Data Source(s) WEIGHT RECORDED 159 lb 159 lb [facility] Body height Measured 62.99 in 62.99 in [facility] ID Date Data Source [id number] 09/09/2020 05:32:00 PM [facility] Name Value Range Interpretation Code Description Data Source(s) WEIGHT RECORDED 158 lb 158 lb [facility] ID Date Data Source [id number] 08/23/2020 10:22:37 AM [facility] Name Value Range Interpretation Code Description Data Source(s) WEIGHT RECORDED 154 lb 154 lb [facility] ID Date Data Source [id number] 08/15/2020 05:08:38 PM [facility] Name Value Range Interpretation Code Description Data Source(s) WEIGHT RECORDED 157.4 lb 157.4 lb [facility] ID Date Data Source [id number] 08/13/2020 11:58:09 AM [facility] Name Value Range Interpretation Code Description Data Source(s) WEIGHT RECORDED 158 lb 158 lb [facility] ID Date Data Source [id number] 07/26/2020 04:19:54 PM [facility] Name Value Range Interpretation Code Description Data Source(s) WEIGHT RECORDED 157 lb 157 lb [facility] ID Date Data Source [id number] 07/11/2020 05:31:09 PM [facility] Name Value Range Interpretation Code Description Data Source(s) WEIGHT RECORDED 157 lb 157 lb [facility] Body height Measured 62.99 in 62.99 in [facility] ID Date Data Source [id number] 07/03/2020 05:04:20 PM [facility] Value Range Interpretation Code Description Data Source(s) WEIGHT RECORDED 156.2 lb 156.2 lb [facility] ID Date Data Source [id number] 07/13/2020 04:41:11 PM [facility] Name Value Range Interpretation Code Description Data Source(s) WEIGHT RECORDED 157 lb 157 lb [facility] ID Date Data Source [id number] 07/01/2020 02:37:42 PM [facility] Value Range Interpretation Code Description Data Source(s) WEIGHT RECORDED 156 lb 156 lb [facility] Body height Measured 63 in 63 in [facility] ID Date Data Source [id number] 06/13/2020 01:04:12 PM [facility] Name Value Range Interpretation Code Description Data Source(s) WEIGHT RECORDED 157.4 lb 157.4 lb [facility] ID Date Data Source [id number] 06/18/2020 07:18:22 AM [facility] Value Range Interpretation Code Description Data Source(s) WEIGHT RECORDED 159.6 lb 159.6 lb [facility] ID Date Data Source [id number] 05/20/2020 [facility] Value Range Interpretation Code Description Data Source(s) WEIGHT RECORDED 150 lb 150 lb [facility] Body height Measured 62.99 in 62.99 in [facility] ID Date Data Source [id number] 04/23/2020 04:39:10 PM [facility] Value Range Interpretation Code Description Data Source(s) WEIGHT RECORDED 154 lb 154 lb [facility] Body height Measured 63 in 63 in [facility] Patient Treatment Plan of Care Planned Activity Planned Date Details Description Data Source (s) letrozole 2.5 MG Oral Tablet 04/04/2021 12:00:00 AM EDT [facility] Trazodone Hydrochloride 100 MG Oral Tablet 03/19/2021 12:00:00 AM E DT [facility] gabapentin 600 MG Oral Tablet 03/19/2021 12:00:00 AM [facility] buspirone hydrochloride 15 MG Oral Tablet 03/19/2021 12:00:00 AM ED [facility] Cholecalciferol 2000 UNT Oral Capsule 03/03/2021 12:00:00 AM [facility] Fluocinonide 0.5 MG/ML Topical Cream 01/15/2021 12:00:00 AM EDT [facility] Oxycodone Hydrochloride 10 MG Oral Tablet 01/02/2021 12:00:00 AM ED [facility] Albuterol Sulfate HFA 108 (90 Base) MCG/ ACT Inhalation Aerosol Solution (PROVENTIL HFA) [facility]DURABLE MEDICAL EQUIPMENT SEE SIG) XX M ISC 10/17/2020 12:00:00 AM [facility] oxyCODONE HCl 10 MG 10/08/2020 12:00:00 AM EST [facility] ([facility]) Vitamin D3 25 MCG 10/07/2020 12:00:00 AM EST [facility] ([facility]) Venlafaxine HCl ER 150 MG 10/07/2020 12:00:00 AM EST [facility] ([facility]) Topiramate 100 MG 10/07/2020 12:00:00 AM EST [facility] ([facility]) One A Day Vitamin 10/07/2020 12:00:00 AM EST [facility] ([facility]) Ondansetron HCl 8 MG 10/07/2020 12:00:00 AM EST [facility] ([facility]) Methadone HCl 5 MG 10/07/2020 12:00:00 AM EST [facility] ([facility]) Loperamide HCl 2 MG 10/07/2020 12:00:00 AM EST [facility] ([facility]) Hydrocortisone 2.5 % 10/07/2020 12:00:00 AM EST [facility] ([facility]) Gabapentin 400 MG 10/07/2020 12:00:00 AM [facility] ([facility]) Diphenoxylate-Atropine 2.5-0.025 MG 10/07/2020 [facility]:00[facility] 10/07/2020 12:00:00 AM [facility] ([facility]) Acetaminophen 10/07/2020 12:00:00 AM [facility] ([facility]) OxyCODONE HCl 5 MG 10/07/2020 12:00:00 AM [facility]) Fluconazole 150 MG Oral Tablet 09/04/2020 12:00:00 AM [facility] 24 HR venlafaxine 150 MG Extended Release Oral Capsule 07/29/2020 12:00:00 AM [facility] Atropine Sulfate 0.025 MG / Diphenoxylate Hydrochlorid e 2.5 MG Oral Tablet 06/27/2020 12:00:00 AM [facility] Loperamide Hydrochloride 2 MG Oral Tablet 06/20/2020 12:00:00 AM [facility] Hydrocortisone 25 MG/ML Topical Cream 06/13/2020 12:00:00 AM [facility] maalox/lidocaine/diphenhydrAMINE 1:1:1 SWISH & SWAL or al suspension 06/08/2020 12:00:00 AM [facility] Ondansetron 8 MG Oral Tablet 06/06/2020 12:00:00 AM [facility] Methadone Hydrochloride 5 MG Oral Tablet 06/01/2020 12:00:00 AM [facility] Nicotine 2 MG Oral Lozenge 05/15/2020 12:00:00 AM [facility] 24 HR Nicotine 0.875 MG/HR Transdermal Patch 05/15/2020 12:00:00 AM [facility] gabapentin 400 MG Oral Capsule 05/10/2020 12:00:00 AM [facility] B Complex Oral Capsule 05/10/2020 12:00:00 AM [facility] duloxetine 30 MG Delayed Release Oral Capsule 04/24/2020 12:00:00 A M [facility] Loratadine 10 MG Oral Tablet 04/11/2020 12:00:00 AM [facility] pregabalin 100 MG Oral Capsule 04/03/2020 12:00:00 AM [facility] Acyclovir 400 MG Oral Tablet 04/03/2020 12:00:00 AM [facility] Hydroxyzine Hydrochloride 25 MG Oral Tablet 04/01/2020 12:00:00 AM [facility] 24 HR venlafaxine 37.5 MG Extended Release Oral Capsul e 04/01/2020 12:00:00 AM [facility] topiramate 100 MG Oral Tablet 03/29/2020 12:00:00 AM [facility] Naproxen 500 MG Oral Tablet 03/25/2020 12:00:00 AM [facility] Oxybutynin chloride 5 MG Oral Tablet 03/14/2020 12:00:00 AM [facility] Ondansetron 8 MG Oral Tablet 03/14/2020 12:00:00 AM [facility] Cholecalciferol 1000 UNT Oral Tablet 02/28/2020 12:00:00 AM [facility] Baclofen 10 MG Oral Tablet 02/26/2020 12:00:00 AM [facility] TRAZODONE HCL PO [facility] vitamin d3 25 mcg (1000 ut) tabs [facility] ([facility]) topiramate 50 MG Oral Tablet [facility] ([facility]) topiramate 25 MG Oral Tablet [facility] ([facility]) tolterodine tartrate 2 MG Oral Tablet [facility] ([facility]) Sulfamethoxazole 800 MG / Trimethoprim 160 MG Oral Tablet [facility] ([facility]) Hydrocortisone 25 MG/ML Topical Cream [Proctozone HC] [facility] ([facility]) pregabalin 75 MG Oral Capsule [facility] ([facility]) pregabalin 100 MG Oral Capsule [facility] ([facility]) Phenazopyridine hydrochloride 200 MG Oral Tablet [facility] ([facility]) Oxybutynin chloride 5 MG Oral Tablet [facility] ([facility]) Nystatin [id number] UNT/ML Oral Suspension [facility] ([facility]) Nystatin 100 UNT/MG Topical Powder [facility] ([facility]) 24 HR Nicotine 0.875 MG/HR Transdermal Patch [facility] ([facility]) Nicotine 2 MG Chewing Gum AT [facility] ([facility]) Naproxen sodium 220 MG Oral Tablet [facility] ([facility]) Naproxen 500 MG Oral Tablet [facility] ([facility]) Naproxen 250 MG Oral Tablet [facility] ([facility]) Lorazepam 0.5 MG Oral Tablet [facility] ([facility]) Loratadine 10 MG Oral Tablet [facility] ([facility]) Lidocaine 25 MG/ML / Prilocaine 25 MG/ML Topical Cream [facility] ([facility]) lidoc/m dry/sycuan SWISH AND SWALLOW 10 ML EVERY 4 HOURS NEEDED [facility] ([facility]) Levothyroxine Sodium 0.025 MG Oral Tablet [facility] ([facility]) Ketorolac Tromethamine 10 MG Oral Tablet [facility] ([facility]) Hydroxyzine Hydrochloride 25 MG Oral Tablet [facility] ([facility]) Hydrocortisone 25 MG/ML Topical Cream [facility] ([facility]) fluticasone propionate 50 mcg/actuation nasal spray,suspension [facility] ([facility]) Fluconazole 150 MG Oral Tablet [facility] ([facility]) Fluconazole 100 MG Oral Tablet [facility] ([facility]) 24 HR venlafaxine 37.5 MG Extended Release Oral Capsule [Effexor] [facility] ([facility]) duloxetine 60 MG Delayed Release Oral Capsule [facility] ([facility]) duloxetine 30 MG Delayed Release Oral Capsule [facility] ([facility]) Atropine Sulfate 0.025 MG / Diphenoxylate Hydrochloride 2.5 MG O ral Tablet [facility] ([facility]) Ciprofloxacin 500 MG Oral Tablet [facility] ([facility]) Cholecalciferol 1000 UNT Oral Tablet [facility] ([facility]) cetirizine hydrochloride 10 MG Oral Tablet [facility] ([facility]) Cephalexin 500 MG Oral Capsule [facility] ([facility]) Baclofen 10 MG Oral Tablet A [facility] ([facility]) Amoxicillin 875 MG / Clavulanate 125 MG Oral Tablet [facility] ([facility]) Amitriptyline Hydrochloride 25 MG Oral Tablet [facility] ([facility]) Acyclovir 400 MG Oral Tablet [facility] ([facility]) vitamin d3 25 mcg (1000 ut) tabs [facility] ([facility]) topiramate 50 MG Oral Tablet [facility] ([facility]) topiramate 25 MG Oral Tablet [facility] ([facility]) tolterodine tartrate 2 MG Oral Tablet [facility] ([facility]) Sulfamethoxazole 800 MG / Trimethoprim 160 MG Oral Tablet [facility] ([facility]) Hydrocortisone 25 MG/ML Topical Cream [Proctozone HC] [facility] ([facility]) pregabalin 75 MG Oral Capsule [facility] ([facility]) pregabalin 100 MG Oral Capsule [facility] ([facility]) Phenazopyridine hydrochloride 200 MG Oral Tablet [facility] ([facility]) Oxybutynin chloride 5 MG Oral Tablet [facility] ([facility]) Nystatin [id number] UNT/ML Oral Suspension [facility] ([facility]) Nystatin 100 UNT/MG Topical Powder [facility] ([facility]) 24 HR Nicotine 0.875 MG/HR Transdermal Patch [facility] ([facility]) Nicotine 2 MG Chewing Gum AT [facility] ([facility]) Naproxen sodium 220 MG Oral Tablet [facility] ([facility]) Naproxen 500 MG Oral Tablet [facility] ([facility]) Naproxen 250 MG Oral Tablet [facility] ([facility]) Lorazepam 0.5 MG Oral Tablet [facility] ([facility]) Loratadine 10 MG Oral Tablet [facility] ([facility]) Lidocaine 25 MG/ML / Prilocaine 25 MG/ML Topical Cream [facility] ([facility]) lidoc/m dry/sycuan SWISH AND SWALLOW 10 ML EVERY 4 HOURS NEEDED [facility] ([facility]) Levothyroxine Sodium 0.025 MG Oral Tablet [facility] ([facility]) Ketorolac Tromethamine 10 MG Oral Tablet [facility] ([facility]) Hydroxyzine Hydrochloride 25 MG Oral Tablet [facility] ([facility]) Hydrocortisone 25 MG/ML Topical Cream [facility] ([facility]) fluticasone propionate 50 mcg/actuation nasal spray,suspension [facility] ([facility]) Fluconazole 150 MG Oral Tablet [facility] ([facility]) Fluconazole 100 MG Oral Tablet [facility] ([facility]) 24 HR venlafaxine 37.5 MG Extended Release Oral Capsule [Effexor] [facility] ([facility]) duloxetine 60 MG Delayed Release Oral Capsule [facility] ([facility]) duloxetine 30 MG Delayed Release Oral Capsule [facility] ([facility]) Atropine Sulfate 0.025 MG / Diphenoxylate Hydrochloride 2.5 MG O ral Tablet [facility] ([facility]) Ciprofloxacin 500 MG Oral Tablet [facility] ([facility]) Cholecalciferol 1000 UNT Oral Tablet [facility] ([facility]) cetirizine hydrochloride 10 MG Oral Tablet [facility] ([facility]) Cephalexin 500 MG Oral Capsule [facility] ([facility]) Baclofen 10 MG Oral Tablet A [facility] ([facility]) Amoxicillin 875 MG / Clavulanate 125 MG Oral Tablet [facility] ([facility]) Amitriptyline Hydrochloride 25 MG Oral Tablet [facility] ([facility]) Acyclovir 400 MG Oral Tablet [facility] ([facility]) SULFAMETHOXAZOLE-TRIMETHOPRIM [facility] vitamin d3 25 mcg (1000 ut) tabs [facility] ([facility]) topiramate 50 MG Oral Tablet [facility] ([facility]) topiramate 25 MG Oral Tablet [facility] ([facility]) tolterodine tartrate 2 MG Oral Tablet [facility] ([facility]) Sulfamethoxazole 800 MG / Trimethoprim 160 MG Oral Tablet [facility] ([facility]) pregabalin 75 MG Oral Capsule [facility] ([facility]) pregabalin 100 MG Oral Capsule [facility] ([facility]) Phenazopyridine hydrochloride 200 MG Oral Tablet [facility] ([facility]) Oxybutynin chloride 5 MG Oral Tablet [facility] ([facility]) Nystatin [id number] UNT/ML Oral Suspension [facility] ([facility]) 24 HR Nicotine 0.875 MG/HR Transdermal Patch [facility] ([facility]) Nicotine 2 MG Chewing Gum AT [facility] ([facility]) Naproxen sodium 220 MG Oral Tablet [facility] ([facility]) Naproxen 500 MG Oral Tablet [facility] ([facility]) Naproxen 250 MG Oral Tablet [facility] ([facility]) Lorazepam 0.5 MG Oral Tablet [facility] ([facility]) Loratadine 10 MG Oral Tablet [facility] ([facility]) lidoc/m dry/sycuan SWISH AND SWALLOW 10 ML EVERY 4 HOURS NEEDED [facility] ([facility]) Levothyroxine Sodium 0.025 MG Oral Tablet [facility] ([facility]) Ketorolac Tromethamine 10 MG Oral Tablet [facility] ([facility]) Hydroxyzine Hydrochloride 25 MG Oral Tablet [facility] ([facility]) fluticasone propionate 50 mcg/actuation nasal spray,suspension [facility] ([facility]) Fluconazole 100 MG Oral Tablet [facility] ([facility]) 24 HR venlafaxine 37.5 MG Extended Release Oral Capsule [Effexor] [facility] ([facility]) duloxetine 60 MG Delayed Release Oral Capsule [facility] ([facility]) Amoxicillin 875 MG / Clavulanate 125 MG Oral Tablet [facility] ([facility]) Amitriptyline Hydrochloride 25 MG Oral Tablet [facility] ([facility]) Acyclovir 400 MG Oral Tablet [facility] ([facility]) duloxetine 60 MG Delayed Release Oral Capsule [facility] ([facility]) duloxetine 30 MG Delayed Release Oral Capsule [facility] ([facility]) Ciprofloxacin 500 MG Oral Tablet [facility] ([facility]) cetirizine hydrochloride 10 MG Oral Tablet [facility] ([facility]) Baclofen 10 MG Oral Tablet A [facility] ([facility]) Amoxicillin 875 MG / Clavulanate 125 MG Oral Tablet [facility] ([facility]) Amitriptyline Hydrochloride 25 MG Oral Tablet [facility] ([facility]) Acyclovir 400 MG Oral Tablet [facility] ([facility]) vitamin d3 25 mcg (1000 ut) tabs [facility] ([facility]) topiramate 50 MG Oral Tablet [facility] ([facility]) topiramate 25 MG Oral Tablet [facility] ([facility]) tolterodine tartrate 2 MG Oral Tablet [facility] ([facility]) Sulfamethoxazole 800 MG / Trimethoprim 160 MG Oral Tablet [facility] ([facility]) pregabalin 75 MG Oral Capsule [facility] ([facility]) pregabalin 100 MG Oral Capsule [facility] ([facility]) Phenazopyridine hydrochloride 200 MG Oral Tablet [facility] ([facility]) Oxybutynin chloride 5 MG Oral Tablet [facility] ([facility]) Nystatin [id number] UNT/ML Oral Suspension [facility] ([facility]) 24 HR Nicotine 0.875 MG/HR Transdermal Patch [facility] ([facility]) Nicotine 2 MG Chewing Gum AT [facility] ([facility]) Naproxen sodium 220 MG Oral Tablet [facility] ([facility]) Naproxen 500 MG Oral Tablet [facility] ([facility]) Naproxen 250 MG Oral Tablet [facility] ([facility]) Lorazepam 0.5 MG Oral Tablet [facility] ([facility]) Loratadine 10 MG Oral Tablet [facility] ([facility]) lidoc/m dry/sycuan SWISH AND SWALLOW 10 ML EVERY 4 HOURS NEEDED [facility] ([facility]) Levothyroxine Sodium 0.025 MG Oral Tablet [facility] ([facility]) Ketorolac Tromethamine 10 MG Oral Tablet [facility] ([facility]) Hydroxyzine Hydrochloride 25 MG Oral Tablet [facility] ([facility]) fluticasone propionate 50 mcg/actuation nasal spray,suspension [facility] ([facility]) Fluconazole 100 MG Oral Tablet [facility] ([facility]) 24 HR venlafaxine 37.5 MG Extended Release Oral Capsule [Effexor] [facility] ([facility]) duloxetine 60 MG Delayed Release Oral Capsule [facility] ([facility]) duloxetine 30 MG Delayed Release Oral Capsule [facility] ([facility]) Ciprofloxacin 500 MG Oral Tablet [facility] ([facility]) cetirizine hydrochloride 10 MG Oral Tablet [facility] ([facility]) Baclofen 10 MG Oral Tablet A [facility] ([facility]) Amoxicillin 875 MG / Clavulanate 125 MG Oral Tablet [facility] ([facility]) Amitriptyline Hydrochloride 25 MG Oral Tablet [facility] ([facility]) Acyclovir 400 MG Oral Tablet [facility] ([facility]) vitamin d3 25 mcg (1000 ut) tabs [facility] ([facility]) topiramate 50 MG Oral Tablet [facility] ([facility]) topiramate 25 MG Oral Tablet RZE[facility] ([facility]) tolterodine tartrate 2 MG Oral Tablet [facility] ([facility]) pregabalin 75 MG Oral Capsule [facility] ([facility]) pregabalin 100 MG Oral Capsule [facility] ([facility]) Phenazopyridine hydrochloride 200 MG Oral Tablet [facility] ([facility]) Nystatin [id number] UNT/ML Oral Suspension [facility] ([facility]) 24 HR Nicotine 0.875 MG/HR Transdermal Patch [facility] ([facility]) Nicotine 2 MG Chewing Gum AT [facility] ([facility]) Naproxen sodium 220 MG Oral Tablet [facility] ([facility]) Naproxen 500 MG Oral Tablet [facility] ([facility]) Naproxen 250 MG Oral Tablet [facility] ([facility]) Lorazepam 0.5 MG Oral Tablet [facility] ([facility]) Loratadine 10 MG Oral Tablet [facility] ([facility]) Levothyroxine Sodium 0.025 MG Oral Tablet [facility] ([facility]) Ketorolac Tromethamine 10 MG Oral Tablet [facility] ([facility]) Hydroxyzine Hydrochloride 25 MG Oral Tablet REZA ([facility]) Fluconazole 100 MG Oral Tablet REZA ([facility]) 24 HR venlafaxine 37.5 MG Extended Release Oral Capsule [Effexor] RE[facility] ([facility]) duloxetine 60 MG Delayed Release Oral Capsule REZA ([facility]) duloxetine 30 MG Delayed Release Oral Capsule REZA ([facility]) Ciprofloxacin 500 MG Oral Tablet REZA ([facility]) cetirizine hydrochloride 10 MG Oral Tablet REZA ([facility]) Baclofen 10 MG Oral Tablet A THENA ([facility]) Amoxicillin 875 MG / Clavulanate 125 MG Oral Tablet REZA ([facility]) Amitriptyline Hydrochloride 25 MG Oral Tablet RE[facility] ([facility]) Acyclovir 400 MG Oral Tablet REZA ([facility]) vitamin d3 25 mcg (1000 ut) tabs REZA ([facility]) topiramate 50 MG Oral Tablet REZA ([facility]) topiramate 25 MG Oral Tablet REZA ([facility]) tolterodine tartrate 2 MG Oral Tablet REZA ([facility]) pregabalin 75 MG Oral Capsule REZA ([facility]) pregabalin 100 MG Oral Capsule REZA ([facility]) Phenazopyridine hydrochloride 200 MG Oral Tablet REZA ([facility]) Nystatin [id number] UNT/ML Oral Suspension REZA ([facility]) 24 HR Nicotine 0.875 MG/HR Transdermal Patch REZA ([facility]) Nicotine 2 MG Chewing Gum AT [facility] ([facility]) Naproxen sodium 220 MG Oral Tablet REZA ([facility]) Naproxen 500 MG Oral Tablet REZA ([facility]) Naproxen 250 MG Oral Tablet REZA ([facility]) cetirizine hydrochloride 10 MG Oral Tablet REZA ([facility]) Baclofen 10 MG Oral Tablet A THENA ([facility]) Amoxicillin 875 MG / Clavulanate 125 MG Oral Tablet RE[facility] ([facility]) Amitriptyline Hydrochloride 25 MG Oral Tablet RE[facility] ([facility]) Acyclovir 400 MG Oral Tablet RE[facility] ([facility]) vitamin d3 25 mcg (1000 ut) tabs REZA ([facility]) topiramate 50 MG Oral Tablet REZA ([facility]) topiramate 25 MG Oral Tablet REZA ([facility]) tolterodine tartrate 2 MG Oral Tablet REZA ([facility]) pregabalin 75 MG Oral Capsule REZA ([facility]) pregabalin 100 MG Oral Capsule REZA ([facility]) Phenazopyridine hydrochloride 200 MG Oral Tablet REZA ([facility]) Nystatin [id number] UNT/ML Oral Suspension REZA ([facility]) 24 HR Nicotine 0.875 MG/HR Transdermal Patch REZA ([facility]) Nicotine 2 MG Chewing Gum AT [facility] ([facility]) Naproxen sodium 220 MG Oral Tablet REZA ([facility]) Naproxen 500 MG Oral Tablet REZA ([facility]) Naproxen 250 MG Oral Tablet RE[facility] ([facility]) Lorazepam 0.5 MG Oral Tablet REZA ([facility]) Loratadine 10 MG Oral Tablet RE[facility] ([facility]) Levothyroxine Sodium 0.025 MG Oral Tablet RE[facility] ([facility]) Ketorolac Tromethamine 10 MG Oral Tablet RE[facility] ([facility]) Hydroxyzine Hydrochloride 25 MG Oral Tablet REZA ([facility]) Fluconazole 150 MG Oral Tablet REZA ([facility]) Fluconazole 100 MG Oral Tablet RE[facility] ([facility]) 24 HR venlafaxine 37.5 MG Extended Release Oral Capsule [Effexor] REZA ([facility]) duloxetine 60 MG Delayed Release Oral Capsule REZA ([facility]) duloxetine 30 MG Delayed Release Oral Capsule REZA ([facility]) Ciprofloxacin 500 MG Oral Tablet REZA ([facility]) cetirizine hydrochloride 10 MG Oral Tablet RE[facility] ([facility]) Baclofen 10 MG Oral Tablet A THENA ([facility]) Amoxicillin 875 MG / Clavulanate 125 MG Oral Tablet RE[facility] ([facility]) Amitriptyline Hydrochloride 25 MG Oral Tablet RE[facility] ([facility]) Acyclovir 400 MG Oral Tablet RE[facility] ([facility]) Potassium 99 MG Oral Tablet [facility] duloxetine 30 MG Delayed Release Oral Capsule REZA ([facility]) Ciprofloxacin 500 MG Oral Tablet REZA ([facility]) cetirizine hydrochloride 10 MG Oral Tablet REZA ([facility]) Baclofen 10 MG Oral Tablet A THENA ([facility]) vitamin d3 25 mcg (1000 ut) tabs REZA ([facility]) topiramate 50 MG Oral Tablet REZA ([facility]) topiramate 25 MG Oral Tablet REZA ([facility]) tolterodine tartrate 2 MG Oral Tablet REZA ([facility]) Sulfamethoxazole 800 MG / Trimethoprim 160 MG Oral Tablet RE[facility] ([facility]) pregabalin 75 MG Oral Capsule REZA ([facility]) pregabalin 100 MG Oral Capsule REZA ([facility]) Phenazopyridine hydrochloride 200 MG Oral Tablet RE[facility] ([facility]) Oxybutynin chloride 5 MG Oral Tablet RE[facility] ([facility]) Nystatin [id number] UNT/ML Oral Suspension REZA ([facility]) 24 HR Nicotine 0.875 MG/HR Transdermal Patch REZA ([facility]) Nicotine 2 MG Chewing Gum AT [facility] ([facility]) Naproxen sodium 220 MG Oral Tablet RE[facility] ([facility]) Naproxen 500 MG Oral Tablet RE[facility] ([facility]) Naproxen 250 MG Oral Tablet RE[facility] ([facility]) Lorazepam 0.5 MG Oral Tablet RE[facility] ([facility]) Loratadine 10 MG Oral Tablet RE[facility] ([facility]) lidoc/m dry/sycuan SWISH AND SWALLOW 10 ML EVERY 4 HOURS NEEDED REZA ([facility]) Levothyroxine Sodium 0.025 MG Oral Tablet RE[facility] ([facility]) Ketorolac Tromethamine 10 MG Oral Tablet RE[facility] ([facility]) Hydroxyzine Hydrochloride 25 MG Oral Tablet RE[facility] ([facility]) fluticasone propionate 50 mcg/actuation nasal spray,suspension REZA ([facility]) Fluconazole 100 MG Oral Tablet RE[facility] ([facility]) 24 HR venlafaxine 37.5 MG Extended Release Oral Capsule [Effexor] REZA ([facility]) duloxetine 60 MG Delayed Release Oral Capsule REZA ([facility]) duloxetine 30 MG Delayed Release Oral Capsule REZA ([facility]) Ciprofloxacin 500 MG Oral Tablet RE[facility] ([facility]) cetirizine hydrochloride 10 MG Oral Tablet RE[facility] ([facility]) Baclofen 10 MG Oral Tablet A THENA ([facility]) Amoxicillin 875 MG / Clavulanate 125 MG Oral Tablet RE[facility] ([facility]) Amitriptyline Hydrochloride 25 MG Oral Tablet RE[facility] ([facility]) Acyclovir 400 MG Oral Tablet RE[facility] ([facility]) vitamin d3 25 mcg (1000 ut) tabs REZA ([facility]) topiramate 50 MG Oral Tablet REZA ([facility]) topiramate 25 MG Oral Tablet REZA ([facility]) tolterodine tartrate 2 MG Oral Tablet REZA ([facility]) Sulfamethoxazole 800 MG / Trimethoprim 160 MG Oral Tablet RE[facility] ([facility]) pregabalin 75 MG Oral Capsule RE[facility] ([facility]) pregabalin 100 MG Oral Capsule REZA ([facility]) Phenazopyridine hydrochloride 200 MG Oral Tablet RE[facility] ([facility]) Oxybutynin chloride 5 MG Oral Tablet RE[facility] ([facility]) Nystatin [id number] UNT/ML Oral Suspension REZA ([facility]) 24 HR Nicotine 0.875 MG/HR Transdermal Patch REZA ([facility]) Nicotine 2 MG Chewing Gum AT [facility] ([facility]) Naproxen sodium 220 MG Oral Tablet RE[facility] ([facility]) Naproxen 500 MG Oral Tablet RE[facility] ([facility]) Naproxen 250 MG Oral Tablet RE[facility] ([facility]) Lorazepam 0.5 MG Oral Tablet RE[facility] ([facility]) Loratadine 10 MG Oral Tablet RE[facility] ([facility]) lidoc/m dry/sycuan SWISH AND SWALLOW 10 ML EVERY 4 HOURS NEEDED REZA ([facility]) Levothyroxine Sodium 0.025 MG Oral Tablet RE[facility] ([facility]) Ketorolac Tromethamine 10 MG Oral Tablet RE[facility] ([facility]) Hydroxyzine Hydrochloride 25 MG Oral Tablet RE[facility] ([facility]) fluticasone propionate 50 mcg/actuation nasal spray,suspension REZA ([facility]) Fluconazole 100 MG Oral Tablet RE[facility] ([facility]) 24 HR venlafaxine 37.5 MG Extended Release Oral Capsule [Effexor] RE[facility] ([facility]) vitamin d3 25 mcg (1000 ut) tabs REZA ([facility]) topiramate 50 MG Oral Tablet RE[facility] ([facility]) topiramate 25 MG Oral Tablet RE[facility] ([facility]) tolterodine tartrate 2 MG Oral Tablet RE[facility] ([facility]) Sulfamethoxazole 800 MG / Trimethoprim 160 MG Oral Tablet RE[facility] ([facility]) pregabalin 75 MG Oral Capsule RE[facility] ([facility]) pregabalin 100 MG Oral Capsule RE[facility] ([facility]) Nystatin [id number] UNT/ML Oral Suspension REZA ([facility]) 24 HR Nicotine 0.875 MG/HR Transdermal Patch REZA ([facility]) Nicotine 2 MG Chewing Gum AT [facility] ([facility]) Naproxen sodium 220 MG Oral Tablet RE[facility] ([facility]) Naproxen 500 MG Oral Tablet RE[facility] ([facility]) Naproxen 250 MG Oral Tablet RE[facility] ([facility]) Lorazepam 0.5 MG Oral Tablet RE[facility] ([facility]) Loratadine 10 MG Oral Tablet RE[facility] ([facility]) Hydroxyzine Hydrochloride 25 MG Oral Tablet RE[facility] ([facility]) Fluconazole 100 MG Oral Tablet RE[facility] ([facility]) duloxetine 60 MG Delayed Release Oral Capsule REZA ([facility]) duloxetine 30 MG Delayed Release Oral Capsule REZA ([facility]) Ciprofloxacin 500 MG Oral Tablet RE[facility] ([facility]) cetirizine hydrochloride 10 MG Oral Tablet RE[facility] ([facility]) Baclofen 10 MG Oral Tablet A THENA ([facility]) Amoxicillin 875 MG / Clavulanate 125 MG Oral Tablet ERZA ([facility]) Lorazepam 0.5 MG Oral Tablet [facility] ([facility]) Loratadine 10 MG Oral Tablet RE[facility] ([facility]) Levothyroxine Sodium 0.025 MG Oral Tablet RE[facility] ([facility]) Ketorolac Tromethamine 10 MG Oral Tablet RE[facility] ([facility]) Hydroxyzine Hydrochloride 25 MG Oral Tablet RE[facility] ([facility]) Fluconazole 150 MG Oral Tablet RE[facility] ([facility]) Fluconazole 100 MG Oral Tablet RE[facility] ([facility]) 24 HR venlafaxine 37.5 MG Extended Release Oral Capsule [Effexor] REZA ([facility]) duloxetine 60 MG Delayed Release Oral Capsule RE[facility] ([facility]) duloxetine 30 MG Delayed Release Oral Capsule RE[facility] ([facility]) Ciprofloxacin 500 MG Oral Tablet RE[facility] ([facility])
--- OUTSIDE RECORDS SUMMARY | 2021-07-16 07:38 | CCD | Summary of Care ---
Author Author [facility] Organization [facility] Address Unknown Phone Unavailable Care Team Providers Care Slab Off Mill Tender Name Role Phone Nela Juarez MD PCP Reason for Referral * Diagnostic Radiology (Routine) - Open Diagnoses / Procedures Referred By Contact Referred To Conta ct Specialty Diagnoses Malignant neoplasm of overlapping sites of left breast in female, estrogen receptor positive Procedures IR Vascular Access Insertion or Removal Port Removal; No laterality preference; Single Cliar Guaman, SOCIAL INSURANCE ADMINISTRATOR [address] [place] [address] Email: [email or web address] Referral ID Status Reason Start Date Expiration Visits Vi sits Date Requested Authorized [id number] Open 07/06/2021 1 1 Reason for Visit * Reason Comments Follow-up Encounter Details Care Team Description Date Type Department Clair Guaman NP [address] [place] [address] [email or web address] Malignant neoplasm of overlapping sites of left breast in female, estrogen receptor positive (Primary Dx); Chemotherapy-induced neuropathy; Encounter for monitoring adjuvant hormonal therapy 06/27/2021 Telemedicine Hematology Oncology [address] [place] [address] Allergies Comments Active Allergy Reactions Severity Noted Date Sulfamethoxazole-Trimetho Rash Low 04/09 prim Depression, suicidal thoughts Varenicline Tartrate Other (See 04/19/2020 Comments) documented as of this encounter (statuses as of 07/06/2021) Medications End Date Status Medication Sig Dispensed [...] positive, unspecified Vomiting site of breast Active Venlafaxine HCl ER 150 MG TAKE [...] FOR PAIN MAXIMUM DAILY DOSE EIGHT TABLETS Active busPIRone HCl 15 MG Oral Take 15 mg by 0 03/19 Tablet (BUSPAR) mouth Two 1 Times Daily Active Vitamin D3 50 MCG (2000 Take by mouth 0 UT) Oral Capsule daily 1 Active Gabapentin 600 MG Oral Take 600 mg 0 02 Tablet (NEURONTIN) by mouth 1 Three times daily Active traZODone HCl 100 MG Oral Take 0.5 30 tablet 0 Tablet tablets by 1 (DESYREL)Indications: mouth nightly Malignant neoplasm of overlapping sites of left breast in female, estrogen receptor positive Active Pregabalin 200 MG Oral TAKE ONE 0 02 Capsule (LYRICA) CAPSULE BY 1 MOUTH TWICE A DAY MAXIMUM DAILY DOSE 2 CAPSULES 06/27/2021 Discontinued (No longer need ed) Loperamide HCl 2 MG Oral Take 2 60 tablet 3 1 Tablet (Imodium tablets with 0 A-D)Indications: the first Malignant neoplasm of loose stool left breast in female, and then 1 estrogen receptor tablet with positive, unspecified each site of breast, Diarrhea subsequent due to drug stool (max dose of 8 tablets per day or 16 mg total) 06/27/2021 Discontinued (No longer need ed) Diphenoxylate-Atropine Take 1 tablet 60 tablet 0 1 2.5-0.025 MG Oral Tablet by mouth Four 0 (Lomotil)Indications: times daily Malignant neoplasm of as needed left breast in female, for Diarrhea, estrogen receptor Max Daily positive, unspecified Dose: 4 site of breast, Diarrhea tablets due to drug 06/27/2021 Discontinued (No longer need ed) Nystatin [id number] UNIT/GM Apply to 30 g 0 External Cream vaginal rash 1 (MYCOSTATIN)Indications: twice daily x Malignant neoplasm of 10 days overlapping sites of left breast in female, estrogen receptor positive documented as of this encounter (statuses as of 07/06/2021) Active Problems Patient Care Coordination Note Tavares-care trainer ([phone]) Problem Noted Date Chemotherapy-induced neuropathy 12/03/2020 S/P left mastectomy 10/03/2020 Breast cancer, female 10/02/2020 Tobacco use 10/02/2020 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 Added automatically from request for concetta galo [id number] Neuropathy 05/21/2020 Lung nodules 05/21/2020 Malignant neoplasm of left breast in female, estrogen receptor positive 04/22/2020 Cancer Staging: Clinical stage from 02/06: Stage IB (cT2, cN0, cM0, G3, ER+, DC+, HER2+) - Signed by Clair Guaman NP on 06/11/2020 Depression documented as of this encounter (statuses as of 07/06/2021) Resolved Problems Problem Noted Date Resolved Date Mouth sore 07/13/2020 08/13/2020 Encounter for antineoplastic chemotherapy 05/21/2020 07/06/2021 documented as of this encounter (statuses as of 07/06/2021) Immunizations Name Administration Dates Next Due documented as of this encounter Social History Date Tobacco Use Types Packs/Day Years Used Current Every Day Smoker Cigarettes 1 36 Smokeless Tobacco: Never Used Comments Alcohol Use Standard Drinks/Week sober since 2017 Not Currently 0 (1 standard drink = 0.6 o z pure alcohol) Alcohol Habits Answer Date Recorded How often do you have a drink containing alcohol? No t asked How many drinks containing alcohol do you have on No t asked a typical day when you are drinking? How often do you have six or more drinks on one Not asked occasion? Comment: sober since 201604/19/2020 Social Isolation Answer Date Recorded In a typical week, how many times do you talk on More than three times a week 10/17/2020 the phone with family, friends, or neig hbors? How often do you get together with friends or Once a week 10/17/2020 relatives? How often do you attend confucianism or gnosticism Never 10/17/2020 services? Do you belong to any clubs or organizations such No 10/17/2020 as confucianism groups, unions, fraternal or athletic groups, or [...] on file Date Recorded COVID-19 Exposure Response 06/25/2021 1:17 PM EST In the last month, have you been in contact with No / Unsure someone who was confirmed or suspected to have Coronavirus / COVID-19? documented as of this encounter Last Filed Vital Signs Not on filedocumented in this encounter Progress Notes * Clair Guaman NP - 06/27/2021 3:00 PM EST Hematology/Oncology Follow Up Note Diagnosis: 1. Malignant neoplasm of overlapping sites of left breast in female, estrogen re ceptor positive 2. Chemotherapy-induced neuropathy 3. Encounter for monitoring adjuvant hormonal therapy Date of Cancer Diagnosis: 02/07/2020 Cancer Stage Malignant neoplasm of left breast in female, estrogen receptor positive, Clinica l stage from 02/07/2020: Stage IB (cT2, cN0, cM0, G3, ER+, DC+, HER2+) Malignant neoplasm of overlapping sites of left breast in female, estrogen reception interviewer tor positive, Pathologic stage from 10/02/2020: No Stage Recommended (ypT1a, pN0( sn), cM0, G3, ER-, DC+, HER2+) Malignant neoplasm of overlapping sites of left breast in female, estrogen reception interviewer tor positive, Clinical: No stage assigned Past Treatment: - Left mastectomy with sentinel lymph node biopsy on 10/02/2020 - Radiation to the left chest wall to a total dose of 6040 cGy over 33 fractions completed on 04/02/2021 - Letrozole from 04/02/2021 until ; stopped due to pruritis Treatment Goal: Curative Plan Name: OP Breast [...] mL infusion, 1 of 1 cyc le Treatment Goal: Curative Plan Name: OP Breast Cancer Herceptin Hylecta (Q21D) Status: Inactive Start Date: 12/19/2020 End Date: 05/01/2021 Provider: Devyn Talbot MD Chemotherapy: [No matching medication found in this treatment plan] Current Treatment: - Adjuvant hormonal therapy; TBD ECOG Performance Status: 1- Restricted in physically [...] was referred to Dr. Ramirez at the [facility] where she was seen for the firs time on 02/07/2020. She recommende d proceeding with biopsy (as scheduled) and neoadjuvant chemotherapy prior to hylton rgery given the extent of disease at the time of diagnosis. She underwent an ult rasound guided biopsy of the left breast mass on 02/07/2020. Pathology revealed grade 3 invasive ductal carcinoma; ER (1-10%) DC (90%) HER2 (3+) positive. Addit ionally, an [...] in the left breast extending anteriorly through [facility] 12:00 region anteriorly and medially in the 10 o'clock position and inferior l aterally in the 4 to 5 o'clock position. She was evaluated by Dr. Elizabeth ([facility]) on 02/23/2020 at which time [...] was severely neutropenic and was admitted to [facility] with a perirectal abscess. A bone scan was obtained on 03/18/2020 [facility] revealed no evidence of osseous metastatic disease. She would eventually rece sarah beth cycle 2 of AC with a 50% dose reduction on 04/01/2020. She presented to [facility] on 04/19/2020 where she was seen by Dr. Greenberg and Dr. Grady where she reported the desire to transfer care to [facility]. The consensus was to complete neoadjuvant chemotherapy [...] ner quadrant measuring 2 mm; ER (100%) DC (100%) positive, HER2 negative. She started Herceptin maintenance on 12/19/2020. An updated ECHO in December 2020 rev ealed a drop in EF which prompted a MUGA scan which was completed on 02/18/2021 and revealed an EF of 66.8% (baseline EF was 72%). She resumed Herceptin on 09/2020. Following Herceptin on 05/01/2021 she developed generalized pruritis whi ch she felt was secondary to the Herceptin. She opted to stop Herceptin despite encouragement to continue HER2 suppressive therapy. She completed adjuvant RT on 04/02/2021. Of note, genetic testing in February 2020 revealed no evidence of deleterious gene m utations. Interim History: Patient presents today for follow up and discussion regarding adjuvant hormonal therapy. This visit was completed via telemedicine without the use of audio/visu al services due to COVID-19. She reports that she has been well overall since she was last seen. Today, she i s happy to report that the generalized pruritis has resolved. The vaginal compla ints (dryness, itching) have improved. She was evaluated by her KEYBOARDING TEACHER following he r visit on 05/22/2021 who felt her symptoms were secondary to vaginal wall thinn ing. She was started on Clobetasol Propionate which she uses prn. Her anxiety and depression are stable; she remains on Buspirone. She reports occ asional diarrhea which she manages with prn Imodium. In regards to the chemother apy induced neuropathy, she continues to note numbness/tingling in her hands and feet with associated impact on her motor function (worse in her feet). She was recently started on Lyrica BID while continuing Gabapentin. She has remained off of hormonal therapy. She denies hot flashes and night sweat s. The previously reported myalgias and arthralgias have returned to their basel ine. She reports recent blood work with her PCP which showed she was not post me nopausal (she is status post hysterectomy but ovaries were not fully removed). S he endorses healing of the left breast wound; she has been following with a [facility] wound care clinic and is applying Santyl to the open areas as prescribed. Otherwise, she denies recent fevers or illnesses, chest pain, shortness of breat h, abdominal pain, nausea or vomiting, constipation, and issues eating/drinking. Subjective: Review of Systems Constitutional: Positive for fatigue. Negative for activity change, appetite luisa nge, chills, fever and unexpected weight change. HENT: Negative for hearing loss, mouth sores, sore throat, trouble swallowing an d voice change. Dry mouth Eyes: Negative for visual disturbance. Respiratory: Positive for shortness of breath (with exertion; chronic). Negative for cough. Cardiovascular: Negative for chest pain and leg swelling. Gastrointestinal: Positive for diarrhea. Negative for abdominal pain, blood in s tool, constipation, nausea and vomiting. Genitourinary: Negative for difficulty urinating, hematuria and vaginal discharg e. Musculoskeletal: Positive for arthralgias and myalgias. Skin: Positive for wound. Negative for rash. Neurological: Positive for numbness and headaches. Negative for dizziness and we akness. Hematological: Negative for adenopathy. Does not bruise/bleed easily. Psychiatric/Behavioral: Negative for agitation, behavioral problems, confusion a nd sleep disturbance. Objective: Vitals: Vitals - 1 value per visit 05/21/2021 05/22/2021 06/27/2021 SYSTOLIC - 135 - DIASTOLIC - 83 - PULSE - 96 - TEMPERATURE - 98.6 - RESPIRATIONS - 16 - Weight (kg) - 82.101 kg - HEIGHT - - - SPO2 - 97 - BODY MASS INDEX - 32.06 kg/m2 - PAIN SCALE - SCORE 10 10 8 PAIN SCALE - LOCATION BREAST HAND GENERALIZED PAIN SCALE - COMMENT - - - Physical Exam Physical exam unable to be completed as this was a telemedicine visit. Imaging NM Cardiac Ventriculogram EF (MUGA) Scan 02/18/2021 Result Date: 02/18/2021 IMPRESSION: Normal resting ventriculogram. Resting left ventricular ejection fraction of 66. 8%, which is within normal limits. Lab Review Lab Results Component Value Date WBC 4.6 05/22/2021 RBC 4.06 (L) 05/22/2021 HGB 13.4 05/22/2021 HCT 39.2 05/22/2021 MCV 96.5 (H) 05/22/2021 MCH 32.9 05/22/2021 MCHC 34.1 05/22/2021 RDW 14.3 05/22/2021 PLT 356 05/22/2021 LYMPHOPCT 24 05/22/2021 MONOPCT 9 05/22/2021 EOSPCT 7 05/22/2021 NEUTROABS 2.70 05/22/2021 EOSABS 0.33 05/22/2021 BASOSABS 0.03 05/22/2021 Lab Results Component Value Date NA 137 05/22/2021 K 3.9 05/22/2021 CL 104 05/22/2021 BICARBONATE 22 05/22/2021 ANIONGAP 12 05/22/2021 GLUCOSE 79 05/22/2021 BUN 2 (L) 05/22/2021 CREATININE 0.75 05/22/2021 GFRAA >90 05/22/2021 GFRNONAA >90 05/22/2021 CALCIUM 9.8 05/22/2021 TBILI <0.2 05/22/2021 ALKPHOS 121 (H) 05/22/2021 ALT 17 05/22/2021 AST 23 05/22/2021 ALBUMIN 4.2 05/22/2021 PROT 7.0 05/22/2021 Assessment and Plan: Brittany Gardner is a 50 y.o. female with stage IB invasive ductal carcinoma of the left breast diagnosed in February 2020. Given the size of the breast mass at the ti me of diagnosis, neoadjuvant chemotherapy was recommended. She is status post ne oadjuvant chemotherapy, a left mastectomy, adjuvant RT, and adjuvant Herceptin. She was started on adjuvant hormonal therapy in March 2021. She presents today for follow up. 1. [...] ed. - She is status post neoadjuvant chemotherapy, a left mastectomy, adjuvant RT, a nd adjuvant Herceptin (did not complete recommended 1 year due to side effects). - Patient presents today for follow up. ROS as detailed above. - She will return in 8 weeks via telemed follow up with Dr. Greenberg. 2. Encounter for Adjuvant Hormonal Therapy - Patient was diagnosed with hormone positive breast cancer in February 2020. Follow ing neoadjuvant chemotherapy, left mastectomy, adjuvant RT, and adjuvant Hercept in she was started on adjuvant hormonal therapy on 04/02/2021. - Goal duration of therapy is 5 years. Tentative end date is March 2026. - She presents today for evaluation of tolerance to adjuvant hormonal therapy. S he endorses chronic myalgias and arthralgias which remain at her baseline. Denie s hot flashes, night sweats. Pruritis and vaginal complaints now resolved. - Per patient, she has not had a baseline DEXA scan. Rationale for imaging revie wed; this has been ordered and she will await scheduling details. - Reinforced the role of Calcium and Vitamin D supplementation along with weight bearing exercises as tolerated. - Patient attempted Letrozole but stopped this due to side effects; these have s shalini resolved. She is agreeable with resuming hormonal therapy. Per the patient, she had labs drawn with her PCP which showed she was not post menopausal; we wi ll request these to review and determine a plan from there. 3. 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 - Described as numbness/tingling in her hands and feet with associated motor fun ction changes and discomfort. - Neoadjuvant chemotherapy was aborted early due to worsening neuropathy. - Today, she reports her neuropathy is stable. She is taking Gabapentin, Lyrica, and Methadone as prescribed. - Will continue to monitor. 3. Symptom and Social Structure Management: - Pain: patient has chronic back pain. Follows with pain clinic closer to home; remains on Methadone. Will continue to defer management to them. - Bowel movements: patient reporting occasional diarrhea; taking Imodium prn. De nies constipation. Will continue to monitor. - Nausea or vomiting: patient denies nausea or vomiting. She does have prn Zofra n and Compazine at home. She denies needing refills today. - Depression: patient with a notable history of anxiety, depression, and substan ce abuse. Remains on Methadone, Effexor and Buspar; reports mood as being stable . Will continue to monitor. - Nutrition: adequate; weight stable. Will continue to monitor. - Basic ADLs: Independent at home. - Advance Directives: not discussed today. - Reproductive: not applicable. Status post hysterectomy. Brittany Villalpando should return in 8 weeks. Imaging prior to return to clinic?: no Labs on return to clinic? yes Medication changes? yes Opioid induced constipation? no Meds reconciled? yes Referrals needed? There are no social work or other referral needs at this time This is a telephonic visit which was performed without the use of video technolo gy due to patient inability to connect with video. The patient was informed of t he risks including security breach, technological failure, inability to perform a physical exam which could delay or prevent an accurate diagnosis, and potentia l complications from treatment decisions rendered over a telephonic platform. Th e patient understands and consented to the use of a telephonic visit/telephone c all. Time spent on the telephonic visit today: 10 minutes. Patient was aware of and in agreement with the plan detailed above. They were in structed to contact the office with any questions or concerns that may arise jd or to his next follow up appointment. The availability of the 01/03 production control coordinator servi ce was additionally reviewed with the patient. Certain parts of this note may have been carried over from prior Hematology/Onco logy notes to maintain accuracy of patient's pertinent medical history and marlene nuity of care. The details were verified and edited as appropriate. Clair Guaman SOCIAL INSURANCE ADMINISTRATOR-C Adult Hematology Oncology documented in this encounter Plan of Treatment Care Team Description Date Type Specialty Devyn Talbot MD [address], [place] [id number] [email or web address] 08/21/2021 Telemedicine Hematology and Onco logy 10/07/2021 Appointment Radiology Declan Grady MD [address] [place] [address] [place] [phone] [email or web address] 04/30/2022 Appointment Radiology Declan Grady MD [address] [place] [address] [place] [id number] [email or web address] 04/30/2022 Office Visit Breast Surgery Order Schedule Name Type Priority Associated Diag noses 1 Occurrences starting 07/06/2021 until 01/03/2022 Follicle stimulating Lab Routine Malignant neoplasm of hormone overlapping sites of left breast in female, estrogen receptor positive 1 Occurrences starting 07/06/2021 until 01/03/2022 Estradiol Generation 3 Lab Routine Maligna nt neoplasm of >=12YO overlapping sites of left breast in female, estrogen receptor positive Expected: 07/06/2021, Expires: 3 IR Vascular Access Imaging Routine Malignant n eoplasm of Insertion or Removal Port overlapping sites of lef t Removal; No laterality breast in female, preference; Single estrogen receptor positive Health Maintenance Due Date Last Done Comments MMR Vaccines (1 of - 10/27/1972 Standard series) Varicella Vaccines (1 of 10/27/1972 2 - 2-dose childhood series) Pneumococcal Vaccine: 10/27/1977 Pediatrics (0 to 5 Years) and At-Risk Patients (6 to 64 Years) (1 of 4 - PCV13) DTaP,Tdap,and Td Vaccines 10/27/1978 (1 - Tdap) HIV Screening 10/27/1984 Cervical Cancer Screening 10/27/1992 5 years Influenza Vaccine 05/09/2021 COVID-19 Vaccine (3 - 07/21/2021 06/23/2021, Moderna risk 4-dose 05/23/2021 series) HIB Vaccines Aged Out No longer eligible [...] in female, estrogen receptor positive - Primary 

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
--- OUTSIDE RECORDS SUMMARY | 2021-07-16 07:38 | CCD ---
Author Author [facility] Organization [facility] Address Unknown Phone Unavailable Care Team Providers Care Nut Sorter Name Role Phone Alexandrea Harris Unavailable PROBLEMS Type Condition ICD9-CM Code AWH08-DI Code Onset Dates Condition S tatus W/U Status Risk SNOMED Code Notes Problem Generalized anxiety disorder F41.1 Active confirme d 18676661 Problem Insomnia, unspecified type G47.00 Active confirmed 220032189 Problem Right sided sciatica M54.31 Active confirmed 04425002 Problem Lumbar radiculopathy M54.16 Active confirmed 899730633 Problem Urinary frequency R35.0 Active confirmed 16 3957644 Problem Sacroiliitis, not elsewhere classified M46.1 A ctive confirmed 43435426 Problem Other chronic pain G89.29 Active confirmed 8 5368805 Problem Stress incontinence (female) (male) N39.3 Acti ve confirmed 09080360 Problem Cervical cancer screening Z12.4 Active confirmed 666360450 Problem Hypothyroidism (acquired) E03.9 Active confirmed 057497915 Problem Anxiety associated with depression F41.8 Activ e confirmed 262883314 Problem History of alcohol dependence F10.21 Active confirm ed 086359034 Problem Tobacco use disorder F17.200 Active confirmed 784848567 Problem Mood disorder F39 Active confirmed 279505 05 Problem Migraine without aura and without status migrain osus, not intractable G43.009 Active confirmed 790831728 Problem Substance abuse F19.10 Active confirmed 6621 4007 Problem Major depressive disorder, single episode, unspecified F32.9 Active confirmed 43847640 Problem Cigarette nicotine dependence without complication F17.210 Active confirmed 68702999 Problem Anxiety F41.9 Active confirmed 69083509 Problem Mixed hyperlipidemia E78.2 Active confirmed 712502466 Problem Nerve damage T14.8 Active confirmed 3578299 0 Problem Alcoholism /alcohol abuse F10.20 Active confirmed 7335198 Problem Lumbar pain with radiation down right leg M54.5 Active confirmed 378528206 Problem Vitamin D deficiency E55.9 Active confirmed 57642735 Problem Breast screening Z12.39 Active confirmed 243 823310 Problem Overactive bladder N32.81 Active confirmed 7 02849215 Problem Osteoarthritis of spine with radiculopathy, cervical regio n M47.22 Active confirmed 886053873 Problem History of alcoholism F10.21 Active confirmed 514905608 Problem Smoker F17.200 Active confirmed 57318859 Problem History of alcohol abuse F10.11 Active confirmed 468835396 Problem Disruption of external opera tion (surgical) wound, not elsewhere classified, subsequent encounter T81.31XD Active confirmed 89126195 Problem Intervertebral disc disorders with radiculopathy , lumbar region M51.16 Active confirmed 27186408 Problem 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 Active confirmed 36440171 Problem Low back pain M54.5 Active confirmed 850827 009 Problem Sacroiliac joint dysfunction M53.3 Active confirme d 824898526 Problem History of substance abuse F19.11 Active confirmed 612211288 Problem Malignant neoplasm of left f emale breast, unspecified estrogen receptor status, unspecified site of breast C50.912 Active confirmed 476884880 Problem Malignant neoplasm of overlapping sites of left female breast C50.812 Active confirmed 992731348 Problem Open breast wound S21.009A Active confirmed 983878613 Problem Wound dehiscence T81.30XA Active confirmed 2 84203186 ALLERGIES Allergen (clinical drug ingredient) Drug/Non Drug Allergy do cumented on EMR Reaction Allergy Type Onset Date Status sulfamethoxazole / trimethoprim Bactrim([facility] Code:[address]-68) Unknown Drug Allergy Active varenicline Chantix Depression Drug Allergy Active ENCOUNTERS from 1971 to 2021-06-25 Encounter Location Date Provider Diagnosis [facility] [address] [phone] [place] [address] 17 Jun, 2021 Alexandrea Harris IMMUNIZATIONS Vaccine Route Administration Date Status Influenza 6mo & up Fluzone Unknown May 20, 2017 Other s SOCIAL HISTORY Tobacco Use: Social History Observation Description Date Details (start date - stop date) Current Smoker Sex Assigned At : Social History Observation Description Sex Assigned At Unknown Education: Question Answer Notes Level of Education: Finished High School Language: Question Answer Notes Languages spoken: Kiswahili Zoroastrianism: Question Answer Notes Zoroastrianism 21 Latter-Day No restorationist beliefs that would impact health care. Sexual [...] REASON FOR REFERRAL No Information VITAL SIGNS No information MEDICATIONS Medication SIG (Take, Route, Frequency, Duration) Notes Start Da te End Date Status Clobetasol Propionate 0.05 % 1 application Externally Twice a day for 10 day(s) May, Active Vitamin D3 25 MCG (1000 UT) 1 tablet Orally Once a day for 30 Days Active Topamax 100 MG 1 tablet Orally Once a day for 30 day(s) Active Venlafaxine HCl ER 150 MG 1 tablet with food Orally Once a day f or 30 day(s) Active Ketorolac Tromethamine 10 MG 1 tablet with food or mil k as needed Orally every 6 hrs for 3 day(s) Feb, Active Diphenoxylate-Atropine 2.5-0.025 MG 1 tablet as needed Orall y Four times a day Active Acetaminophen 325 MG 1 capsule as needed Orally every 6 hrs Active Ondansetron 8 MG 1 tablet on the tongue and a llow to dissolve as needed Orally Once a day for 30 day(s) Active Famotidine 20 MG as directed Orally Active Lyrica 75 MG 1 capsule Orally Once a day for 30 days 2019 Active oxyCODONE HCl 10 MG 1 tablet as needed Orally every 6 hrs Active Loratadine 10 MG 1 tablet Orally Once a day for 30 Days Sep, Active Multivitamins 1 tablet Orally daily Active Gabapentin 400 MG 1 capsule Orally Once a day for 30 day(s) Active traZODone HCl 100 MG 1 tablet at bedtime Orally Once a day for 30 day (s) Active Ventolin HFA 108 (90 Base) MCG/ACT 1 puff as needed In halation every 4 hrs for 30 Days Sep, Active PROCEDURES No Information RESULTS No Results REASON FOR VISIT R/S WCC APT MEDICAL (GENERAL) HISTORY Type Description Date Medical History Narcotics and EtOH addiction sober since 06/2016 - [facility] Medical History Chronic pain status [...] History left breast mastectomy 09/2020 Hospitalization History [facility] 3 m [facility] 09/07/16-12/16/16 Hospitalization History Childbirth 1988 Hospitalization History Childbirth 1994 Hospitalization History Childbirth 1997 Hospitalization History surgery related 09/2020 Goals Section No Information Health Concerns No Information MEDICAL EQUIPMENT No Information MENTAL STATUS No Information FUNCTIONAL STATUS No Information ASSESSMENTS No Information PLAN OF TREATMENT Next Appt Details Provider Name:Clark Hyman, 09:30:00 AM, [address], , [place], [address], Insurance Providers Payer Name Payer Address Payer Phone Insured Name Patient Relati onship to Insured Coverage Start Date Coverage End Date [facility] COMM[facility] PLAN [facility] [address] [facility] [id number] POLO RAMIREZ self
--- OUTSIDE RECORDS SUMMARY | 2021-07-16 07:39 | CCD ---
Author Organization Unknown Address [address] [place] [address] Phone [phone] Care Team Providers Care Desizing Machine Offbearer Name Role Phone [facility] 2 [phone] [facility] 2 [phone] [facility] 114 [phone] [facility] 124 [phone] Allergies Code Code System Name Reaction Severity Status Onset 540928 RxNorm Bactrim Rash Moderate Active 280478 RxNorm Chantix Rash Mild Active 812188 RxNorm Herceptin Rash Active Medications Name Status Start Date Stop Date [...] BY MOUTH TWO TIMES A DAY Completed 06/11/2021 buspirone 15 mg tablet TAKE ONE TABLET BY MOUTH TWICE A DAY Active No t available cephalexin 500 mg capsule TAKE ONE CAPSULE BY MOUTH TWICE A DAY FOR 10 DAYS Completed 03/03/2021 cetirizine 10 mg tablet Completed 07/29/20 cholecalciferol (vitamin D3) 25 mcg (1,000 unit) tablet Complete d 03/03/2021 cholecalciferol (vitamin D3) 50 mcg (2,0 00 unit) capsule TAKE ONE TABLET BY MOUTH EVERY DAY Completed 10/2020 cholecalciferol (vitamin D3) 50 mcg (2,0 00 unit) tablet Take 1 tablet every day by oral route. Active Not available ciprofloxacin 500 mg tablet Completed 07/10 clobetasol 0.05 % topical ointment APPLY TOPICALLY TWO TIMES A DAY FOR 10 DAYS Active Not available diphenoxylate-atropine 2.5 mg-0.025 mg t ablet TAKE [...] ON DAY 3 IF NOT RESOLVED Completed 06/11/2021 fluticasone propionate 50 mcg/actuation nasal spray,suspension C ompleted 10/31/2020 gabapentin 400 mg capsule TAKE TWO CAPSULES BY MOUTH THREE TIMES A DAY MAXIMUM DAILY DOSE 6 CAPSULES Completed 06/11/2021 gabapentin 600 mg tablet TAKE TWO TABLETS BY MOUTH EVERY 8 HOURS MAXIMUM DAILY DOSE 6 TABLETS Active Not available hydrocortisone 2.5 % topical cream APPLY TO AFFECTED AREA S TWO TIMES A DAY NEEDED Completed 03/03/2021 hydroxyzine HCl 25 mg tablet TAKE ONE TABLET BY MOUTH THREE TIMES A DAY NEEDED FOR ANXIETY Completed 07/29/2020 ketorolac 10 mg tablet Completed letrozole 2.5 mg tablet Completed 06/11/20 levothyroxine 25 mcg tablet Completed 03/2021 lidoc/m dry/grayling SWISH AND SWALLOW 10 ML EVERY 4 HOURS NEEDED Completed 10/31/2020 Lidocaine Viscous 2 % mucosal solution Completed 06/11/2021 lidocaine-prilocaine 2.5 %-2.5 % topical cream Completed 03/03/2021 loratadine 10 mg tablet Completed 07/29/20 lorazepam 0.5 mg tablet Completed 07/29/20 methadone 5 mg tablet TAKE ONE TABLET BY MOUTH THREE TIMES A DAY MAXIMUM DAILY DOSE THREE TABLETS Active Not available methylprednisolone 4 mg tablets in a dos e pack TAKE BY MOUTH PER PACKAGE INSTRUCTIONS Completed 06/11/2021 naproxen 250 mg tablet TAKE ONE TABLET [...] HOURS Completed 07/29/2020 nystatin 100,000 unit/gram topical cream APPLY TO VAGINAL RASH TOPICALLY TWICE A DAY FOR 10 DAYS Completed 06/11/2021 nystatin 100,000 unit/gram topical powde r APPLY TOPICALLY TWO TIMES A DAY TO AFFECTED AREAS Completed 03/03/2021 nystatin 100,000 unit/mL oral suspension TAKE 5 ML BY MOUTH FOUR TIMES A DAY FOR 10 DAYS Completed 07/29/2020 ondansetron HCl 8 mg tablet TAKE 1 TABLET BY MOUTH EVERY 8 HOURS NEEDED FOR FOR NAUSEA AND VOMITING Completed 06/11/2021 oxybutynin chloride 5 mg tablet TAKE ONE TABLET BY MOUTH TWICE A DAY Completed oxycodone 10 mg tablet TAKE 1 2 TABLETS BY MOUTH EVERY 4 HOURS NEEDED FOR PAIN MAXIMUM DAILY DOSE 8 TABLETS Active Not available oxycodone 5 mg tablet Completed 06/11/2021 phenazopyridine 200 mg tablet TAKE ONE TABLET BY MOUTH THREE TIMES A DAY FOR 2 DAYS Completed 10/31/2020 pregabalin 100 mg capsule TAKE ONE CAPSULE BY MOUTH THREE TIMES A DAY MAXIMUM DAILY DOSE 3 Completed 07/29/2020 pregabalin 150 mg capsule TAKE ONE CAPSULE BY MOUTH TWICE A DAY MAXIMUM DAILY DOSE 2 CAPSULE Active Not available pregabalin 75 mg capsule TAKE ONE CAPSULE [...] 20 topiramate 50 mg tablet Completed 07/29/20 trazodone 100 mg tablet Take 1 tablet every day by oral route at bedtime. Active Not available venlafaxine ER 150 mg capsule,extended r elease 24 hr TAKE 1 CAPSULE BY MOUTH EVERY DAY Completed 06/11 vitamin d3 25 mcg (1000 ut) tabs Completed 07/29/2020 vitamin d3 50 mcg (2000 ut) tabs Completed 06/11/2021 Vitamins B Complex capsule Completed 06/11 Problems Name Status Onset Date Source Acute [...] Caused by Cigarettes Active 01/24/20 19 History History of Malignant Neoplasm of Breast Active 02/13/20 20 Generalized Anxiety Disorder Active 04/24/2020 His tory Dysthymia Active 04/24/2020 History Chronic Migraine without Aura Active 04/24/2020 Hi story Neuropathy Active 04/24/2020 History Pulmonary Emphysema Active 04/24/2020 History Midline Cystocele Active 04/24/2020 History Clinical Finding Unknown 04/24/2020 History Radiculopathy Due to Lumbar Intervertebral Disc Disorder Active 04/24/2020 History Glaucoma Unknown 09/24/2020 Multiple Nodules of Lung Active 06/11/2021 History of Opioid Abuse Active 06/11/2021 Procedures Date Name Performed by 10/02/2020 Mastectomy Notes: L breast Information not available Partial Hysterectomy Notes: remaining right ovary Information not available Cholecystectomy Information not avai lable Notes: Hysterectomy (Complete) | Hystere ctomy with unilateral salpingoophorectomy, Gall Bladder Removal, Cysts removed Results Lab Results Date Name Specimen Result Interpretation Description Value Range Status Address 03/26/2021 CBC W/ Auto Diff Normal White Blood Count 7.1 10 4.0-10.0 10 [facility]: [address] [facility] Normal Red Blood Count 4.13 10 4.00-5.40 10 [facility]: [address] [facility] Normal Hemoglobin 13.3 g/dL 12.0-15.5 g/dL [facility]: [address] [facility] Normal Hematocrit 39.4 % 36.0-47.0 % [facility]: [address] [facility] Normal Mean Corpuscular Volume 95.4 fL 80.0 -96.0 fL Final [facility]: [address] [facility] Normal Mean Corpuscular Hemoglobin 32.2 pg 27.0-33.0 pg Final [facility]: [address] [facility] Normal Mean Corpuscular HGB Conc 33.8 g/dL 32.0-36.5 g/dL Final [facility]: [address] [facility] Normal Red Cell Distribution Width 13.9 % 1 1.5-14.5 % [facility]: [address] [place] [address] Normal Platelet Count, Automated 263 10 150 -450 10 [facility]: [address] [facility] Normal Neutrophils % 64.8 % 36.0-66.0 % [facility]: [address] [facility] Low Lymph % 22.0 % 24.0-44.0 % Final [facility]: [address] [facility] High [place] % 9.6 % 2.0-8.0 % Final [facility]: [address] [facility] Normal Eos % 2.7 % 0.0-3.0 % [facility]: [address] [facility] Normal Baso % 0.6 % 0.0-1.0 % Final [facility]: [address] [facility] Normal Immature Granulocyte % 0.3 % 0-3.0 % [facility]: [address] [facility] Normal Nucleated Red Blood Cell % 0.0 % 0- 0 % [facility]: 0 [facility] Normal Neutrophils # 4.6 10 1.5-8.5 10 [facility]: [address] [facility] Normal Lymph # 1.6 10 1.5-5.0 10 [facility]: [address] [facility] Normal [place] # 0.7 10 0.0-0.8 10 [facility]: [address] [facility] Normal Eos # 0.2 10 0.0-0.5 10 [facility]: [address] [facility] Normal Baso # 0.0 10 0.0-0.2 10 [facility]: [address] [facility] 03/26/2021 Cardiovascular Assessment Panel, Serum Normal CPK Creatine Phosphokinase 67 U/L 26-192 U/L [facility]: [address] [facility] Normal CK-mb Value Mass < 1.0 NG/mL <3.6 NG /mL [facility]: [address] [place] [address] Normal mb/CK Relative Index 1.49 < or =4 [facility]: [address] [place] [address] Normal Troponin I 0.03 NG/mL < 0.10 NG/mL F inal [facility]: [address] [facility] 03/26/2021 BMP, Serum or Plasma Normal Glucose, Fastin g 91 mg/dL 70-100 mg/dL [facility]: 83 0 [facility] Normal Blood Urea Nitrogen 8 mg/dL 7-18 mg/ dL [facility]: 0 [facility] Normal Creatinine for GFR 0.55 mg/dL 0.55-1 .30 mg/dL [facility]: 0 [facility] Normal Glomerular Filtration Rate > 60.0 >5 8 [facility]: [address] [facility] Normal Sodium Level 140 mEq/L 136-145 mEq/L [facility]: 0 [facility] Normal Potassium Serum 3.6 mEq/L 3.5-5.1 mE q/L [facility]: 0 [facility] High Chloride Level 108 mEq/L 98-107 mEq/ L [facility]: 0 [facility] Normal Carbon Dioxide Level 28 mEq/L 21-32 mEq/L [facility]: 0 [facility] Low Anion Gap 4 mEq/L 8-16 mEq/L [facility]: [address] [place] [address] Normal Calcium Level 8.7 mg/dL 8.5-10.1 mg/ dL [facility]: [address] [place] [address] 10/11/2020 CMP, Serum or Plasma Blood venous Normal Glu cose, Fasting 100 mg/dL 70-100 mg/dL [facility] nter: [address] [place] [address] Blood venous Normal Blood Urea Nitrogen 8 mg/dL 7 -18 mg/dL [facility]: [address] [place] [address] Blood venous Normal Creatinine for GFR 0.63 mg/dL 0.55-1.30 mg/dL [facility]: [address] [place] [address] Blood venous Normal Glomerular Filtration Rate > 60.0 >58 [facility]: [address] [place] [address] Blood venous Normal Sodium Level 140 mEq/L 136-14 5 mEq/L [facility]: [address] [place] [address] Blood venous Normal Potassium Serum 4.1 mEq/L 3.5 -5.1 mEq/L [facility]: [address] [place] [address] Blood venous High Chloride Level 109 mEq/L 98-1 07 mEq/L [facility]: [address] [place] [address] Blood venous Normal Carbon Dioxide Level 27 mEq/L 21-32 mEq/L [facility]: [address] [place] [address] Blood venous Low Anion Gap 4 mEq/L 8-16 mEq/L [facility]: [address] [place] [address] Blood venous Normal Calcium Level 9.2 mg/dL 8.5-1 0.1 mg/dL [facility]: 0 [facility] Blood venous Normal AST/SGOT 18 U/L 7-37 U/L [facility] [place] [facility]: [address] [place] [address] Blood venous Normal ALT/SGPT 25 U/L 12-78 U/L [facility]: 0 [facility] Blood venous Normal Alkaline Phosphatase 111 U/L 45-117 U/L [facility]: [address] [place] [address] Blood venous Normal Bilirubin,total 0.2 mg/dL 0.2 -1.0 mg/dL [facility]: [address] [place] [address] Blood venous Normal Total Protein 6.4 gm/dL 6.4-8 .2 gm/dL [facility]: [address] [place] [address] Blood venous Normal Albumin 3.2 gm/dL 3.2-5.2 gm/ dL [facility]: [address] [place] [address] Blood venous Low Albumin/globulin Ratio 1.0 1.2-2.2 [facility]: [address] [place] [address] 10/11/2020 TSH + Free T4, Serum Blood venous Normal Thyroid Stimulating Hormone 3.010 uIU/mL 0.358-3.740 uIU/mL [facility]: [address] [place] [address] Blood venous Normal Free T4 0.92 NG/dL 0.76-1.46 NG/dL [facility]: [address] [place] [address] 09/30/2020 CBC W/ Auto Diff Normal White Blood Count 6.0 10 4.0-10.0 10 [facility]: [address] [place] [address] Normal Red Blood Count 4.49 10 4.00-5.40 10 [facility]: [address] [place] [address] Normal Hemoglobin 14.0 g/dL 12.0-15.5 g/dL [facility]: [address] [place] [address] Normal Hematocrit 42.8 % 36.0-47.0 % [facility]: [address] [place] [address] Normal Mean Corpuscular Volume 95.3 fL 80.0 -96.0 fL [facility]: [address] [place] [address] Normal Mean Corpuscular Hemoglobin 31.2 pg 27.0-33.0 pg [facility]: [address] [place] [address] Normal Mean Corpuscular HGB Conc 32.7 g/dL 32.0-36.5 g/dL [facility]: [address] [place] [address] Normal Red Cell Distribution Width 14.5 % 1 1.5-14.5 % [facility]: [address] [facility] Normal Platelet Count, Automated 300 10 150 -450 10 [facility]: [address] [facility] High Neutrophils % 66.6 % 36.0-66.0 % [facility]: [address] [facility] Normal Lymph % 24.3 % 24.0-44.0 % [facility]: [address] [facility] Normal [place] % 7.1 % 2.0-8.0 % [facility]: [address] [facility] Normal Eos % 0.8 % 0.0-3.0 % [facility]: [address] [facility] Normal Baso % 1.0 % 0.0-1.0 % [facility]: [address] [facility] Normal Immature Granulocyte % 0.2 % 0-3.0 % [facility]: [address] [facility] Normal Nucleated Red Blood Cell % 0.0 % 0- 0 % [facility]: [address] [facility] Normal Neutrophils # 4.0 10 1.5-8.5 10 [facility]: [address] [facility] Normal Lymph # 1.5 10 1.5-5.0 10 [facility]: [address] [facility] Normal [place] # 0.4 10 0.0-0.8 10 [facility]: [address] [facility] Normal Eos # 0.1 10 0.0-0.5 10 [facility]: [address] [facility] Normal Baso # 0.1 10 0.0-0.2 10 [facility]: [address] [facility] 09/30/2020 Urinalysis, Dipstick High Appearance, Urine cloudy clear [facility]: [address] [facility] Normal Color, Urine yellow yellow Final [facility]: [address] [facility] Normal pH,urine 8.0 units 5.0-9.0 units [facility]: [address] [facility] Normal Specific [place] Urine Auto 1.011 1 .002-1.035 [facility]: [address] [facility] Normal Protein, Urine Auto negative mg/dL n egative mg/dL [facility]: [address] [facility] Normal Glucose, Urine (UA) Auto negative mg /dL negative mg/dL [facility]: [address] [facility] Normal Ketone, Urine Auto negative mg/dL ne gative mg/dL [facility]: [address] [facility] Normal Urobilinogen, Urine Auto 0.2 mg/dL 0 .0-2.0 mg/dL [facility]: [address] [facility] Normal Bilirubin, Urine Auto negative negat sarah beth [facility]: [address] [facility] Normal Nitrite, Urine Auto negative negativ e [facility]: [address] [facility] Normal Leukocyte Esterase, Urine Auto negat sarah beth negative [facility]: [address] [facility] Normal Blood, Urine Blood negative negative [facility]: [address] [facility] Normal WBC, Urine Auto 1 /hpf 0-3 /hpf [facility]: [address] [facility] Normal RBC, Urine Auto 0 /hpf 0-3 /hpf [facility]: [address] [facility] Normal Bacteria, Urine Auto negative negati ve [facility]: [address] [facility] Normal Squamous Epithelial Cell Ur AU 0 /hp f 0-6 /hpf [facility]: [address] [facility] Normal Mucus, Urine small negative [facility]: [address] [facility] Normal Hyaline Cast, Urine Auto 0 /lpf 0-1 /lpf [facility]: [address] [facility] High Amorphous Sediment moderate negative [facility]: [address] [facility] 09/30/2020 Urinalysis, Dipstick, Auto Bilirubin 0 [facility] Medical: [address] [facility] Blood 0 [facility] Medical: [address] [facility] Glucose 0 [facility] Medical: [address] [facility] Ketone 0 [facility] pus Medical: [address] [facility] Leukocytes 0 [facility]: [address] [facility] Nitrite 0 [facility] Medical: [address] [facility] Ph 7.5 [facility] Medical: 238 [facility] Protein +15 [facility] Medical: [address] [facility] Specific [place] 7.5 [facility] Medical: [address] [facility] Urobilinogen 0 [facility] in [place] [facility]: [address] [facility] 09/23/2020 CMP, Serum or Plasma Normal Glucose, Fastin g 80 mg/dL 70-100 mg/dL [facility]: 83 0 [facility] Low Blood Urea Nitrogen 6 mg/dL 7-18 mg/ dL [facility]: [address] [place] [address] Normal Creatinine for GFR 0.68 mg/dL 0.55-1 .30 mg/dL [facility]: [address] [place] [address] Normal Glomerular Filtration Rate > 60.0 >5 8 [facility]: [address] [facility] Normal Sodium Level 141 mEq/L 136-145 mEq/L [facility]: 0 [facility] Normal Potassium Serum 4.1 mEq/L 3.5-5.1 mE q/L [facility]: [address] [facility] High Chloride Level 109 mEq/L 98-107 mEq/ L [facility]: [address] [facility] Normal Carbon Dioxide Level 27 mEq/L 21-32 mEq/L [facility]: 0 [facility] Low Anion Gap 5 mEq/L 8-16 mEq/L [facility]: 0 [facility] Normal Calcium Level 9.4 mg/dL 8.5-10.1 mg/ dL [facility]: 0 [facility] High AST/SGOT 38 U/L 7-37 U/L Final [facility]: [address] [facility] High ALT/SGPT 143 U/L 12-78 U/L [facility]: [address] [facility] High Alkaline Phosphatase 141 U/L 45-117 U/L [facility]: [address] [facility] Normal Bilirubin,total 0.2 mg/dL 0.2-1.0 mg /dL [facility]: [address] [place] [address] Normal Total Protein 6.7 gm/dL 6.4-8.2 gm/d L [facility]: [address] [place] [address] Normal Albumin 3.2 gm/dL 3.2-5.2 gm/dL Yesy l [facility]: 0 [facility] Low Albumin/globulin Ratio 0.9 1.2-2. 2 [facility]: [address] [place] [address] 09/23/2020 TSH, Serum or Plasma High Thyroid Stimulating Hormone 7.930 uIU/mL 0.358-3.740 uIU/mL [facility] nter: 0 [facility] Past Encounters 06/11/2021 Patient New to Provider; Nicotine Dependence with Current Use; Body Mass Index 30+ - Obesity; Chronic Migraine without Aura; Pulmonary Emphysema; History of Malignant Neoplasm of Breast; Hyperlipidemia; Serum TSH Level Abnormal; Generalized Anxiety Disorder; Influenza Vaccination Declined; Insomnia; Vitamin D Deficiency; Venereal Disease Screening; Screening for Malignant Neoplasm of Colon; Perimenopausal State Nela Juarez MD: [address] [place] [phone], Ph. 03/18/2021 Mixed Anxiety and Depressive Disorder; Insomnia Tanya Mcintosh PA-C: [address] [place] [phone], Ph. 03/03/2021 Mixed Anxiety and Depressive Disorder; Vitamin D Deficiency; Asthma; Body Mass Index 25-29 - Overweight Tanya Mcintosh PA-C: [address] [place] [phone], Ph. 11/15/2020 Dehiscence of Surgical Wound Tanya ANGEL Mcintosh: [address] [place] [phone], Ph. 10/31/2020 Cellulitis of Breast; Acute Vaginitis; Vitamin D Deficiency; Thyroid Function Tests Abnormal; History of Mastectomy Tanyarashawn Mcintosh PA-C: [address] [place] [phone], Ph. 10/11/2020 Thyroid Function Tests Abnormal; Elevated Liver Enzymes Level; Proteinuria Tanya ANGEL Mcintosh: [address] [place] [phone], Ph. 09/30/2020 Tanyarashawn Mcintosh PA-C: [address] [place] [phone], Ph. 09/23/2020 Pre-surgery Evaluation Tanyarashawn Mcintosh PA-C: [address] [place] [phone], Ph. 09/16/2020 Pre-surgery Evaluation; Malignant Neoplasm of Female Breast; Insomnia; Pulmonary Emphysema; Hyperlipidemia; Glaucoma; Dysthymia; Chronic Migraine without Aura; Chronic Pain Tanyarashawn Mcintosh PA-C: [address] [place] [phone], Ph. 07/29/2020 Depressive Disorder; Adjustment Disorder with Mixed Anxiety and Depressed Mood Tanya Mcintosh PA-C: [address] [place] [phone], Ph. Social History Tobacco Smoking Status Heavy Tobacco Smoker (1/2 pack per da y) Vaccine List Vaccine Type COVID-19, mRNA, LNP-S, PF, 100 mcg/0.5 m L dose 05/23/2021 Plan of Care Reminders Provider Appointments None recorded. Lab None recorded. Referral None recorded. Procedures None recorded. Surgeries None recorded. Imaging None recorded. Vitals 06/11/2021 09:40AM PROVIDER DIRECTED FOLLOW-UP 40 Height Weight BMI Blood Pressure 63 in 182 lbs 4 oz 32.3 kg/m2 114/75 mm[Hg] 03/18/2021 10:00AM TELEHEALTH 20 Height 63 in 03/03/2021 11:00AM ESTABLISHED [id number] Height Blood Pressure 63 in 127/86 mm[Hg] [...]
--- OUTSIDE RECORDS SUMMARY | 2021-07-16 07:39 | CCD ---
Author Author [facility] Organization [facility] Address Unknown Phone Unavailable Care Team Providers Care Chemical Unit Operator Name Role Phone Clark Hyman Unavailable PROBLEMS Type Condition ICD9-CM Code [id number] Code Onset Dates Condition S tatus W/U Status Risk SNOMED Code Notes Problem Generalized anxiety disorder F41.1 Active confirme d 60715599 Problem Insomnia, unspecified type G47.00 Active confirmed 573821771 Problem Right sided sciatica M54.31 Active confirmed 14008491 Problem Lumbar radiculopathy M54.16 Active confirmed 316503174 Problem Urinary frequency R35.0 Active confirmed 16 6052225 Problem Sacroiliitis, not elsewhere classified M46.1 A ctive confirmed 92420919 Problem Other chronic pain G89.29 Active confirmed 8 5746680 Problem Stress incontinence (female) (male) N39.3 Acti ve confirmed 81410409 Problem Cervical cancer screening Z12.4 Active confirmed 050028773 Problem Hypothyroidism (acquired) E03.9 Active confirmed 657928480 Problem Anxiety associated with depression F41.8 Activ e confirmed 405847453 Problem History of alcohol dependence F10.21 Active confirm ed 955378580 Problem Tobacco use disorder F17.200 Active confirmed 483324087 Problem Mood disorder F39 Active confirmed 769104 05 Problem Migraine without aura and without status migrain osus, not intractable G43.009 Active confirmed 033524295 Problem Substance abuse F19.10 Active confirmed 6621 4007 Problem Major depressive disorder, single episode, unspecified F32.9 Active confirmed 08241164 Problem Cigarette nicotine dependence without complication F17.210 Active confirmed 63330524 Problem Anxiety F41.9 Active confirmed 59241495 Problem Mixed hyperlipidemia E78.2 Active confirmed 129390754 Problem Nerve damage T14.8 Active confirmed 0472653 0 Problem Alcoholism /alcohol abuse F10.20 Active confirmed 5772930 Problem Lumbar pain with radiation down right leg M54.5 Active confirmed 784832821 Problem Vitamin D deficiency E55.9 Active confirmed 91116013 Problem Breast screening Z12.39 Active confirmed 243 944010 Problem Overactive bladder N32.81 Active confirmed 7 73456838 Problem Osteoarthritis of spine with radiculopathy, cervical regio n M47.22 Active confirmed 283460724 Problem History of alcoholism F10.21 Active confirmed 912098491 Problem Smoker F17.200 Active confirmed 29744870 Problem History of alcohol abuse F10.11 Active confirmed 289931014 Problem Disruption of external opera tion (surgical) wound, not elsewhere classified, subsequent encounter T81.31XD Active confirmed 17785963 Problem Intervertebral disc disorders with radiculopathy , lumbar region M51.16 Active confirmed 82464224 Problem 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 Active confirmed 38900418 Problem Low back pain M54.5 Active confirmed 485378 009 Problem Sacroiliac joint dysfunction M53.3 Active confirme d 463986150 Problem History of substance abuse F19.11 Active confirmed 254462143 Problem Malignant neoplasm of left f emale breast, unspecified estrogen receptor status, unspecified site of breast C50.912 Active confirmed 561805286 Problem Malignant neoplasm of overlapping sites of left female breast C50.812 Active confirmed 727470846 Problem Open breast wound S21.009A Active confirmed 183393617 Problem Wound dehiscence T81.30XA Active confirmed 2 68971752 ALLERGIES Allergen (clinical drug ingredient) Drug/Non Drug Allergy do cumented on EMR Reaction Allergy Type Onset Date Status sulfamethoxazole / trimethoprim Bactrim([facility] Code:[address]-32) Unknown Drug Allergy Active varenicline Chantix Depression Drug Allergy Active ENCOUNTERS from 1971 to 2021-06-24 Encounter Location Date Provider Diagnosis [facility] [phone] [place] [address] 11 Jun, 2021 Clark Stillerman Wound dehiscence T81.30XA an d [...] School Language: Question Answer Notes Languages spoken: Serbian Religious: Question Answer Notes Religious 21 Protestant No adventism beliefs that would impact health care. Sexual [...] No Information VITAL SIGNS Weight 187 lbs Jun, Height 63.5 in Jun, BMI 32.60 kg/m2 Jun, Heart Rate 76 /min Jun, Respiratory Rate 20 /min Jun, Temperature 97.6 degrees Fahrenheit Jun, Oximetry 94 Jun, Blood pressure systolic 118 mm Hg Jun, Blood pressure diastolic 79 mm Hg Jun, MEDICATIONS Medication SIG (Take, Route, Frequency, Duration) [...] hrs for 30 Days Sep, Active PROCEDURES from 1971 to 2021-06-24 Procedure Date Ordered Result Body Site Medication: Santyl 250unit/G ointment to wound bed 2021-06-19 N/A Medication: 4% Lidocaine topical cream (Anecream) 5gm 2021-06-19 N/A RESULTS No Results REASON FOR VISIT Left Mastectomy Wound MEDICAL (GENERAL) HISTORY Type Description Date Medical History Narcotics and EtOH addiction sober since 06/2016 - [facility] Medical History Chronic pain status [...] History left breast mastectomy 09/2020 Hospitalization History [facility] 09/07/16-12/16/16 Hospitalization History Childbirth 1988 Hospitalization History Childbirth 1994 Hospitalization History Childbirth 1997 Hospitalization History surgery related 09/2020 Goals Section No Information Health Concerns No Information MEDICAL EQUIPMENT No Information MENTAL STATUS No Information FUNCTIONAL STATUS No Information ASSESSMENTS Encounter Date Diagnosis Assessment Notes Treatment Notes Treatm ent Clinical Notes Jun, Wound dehiscence (ICD-10 - T81.30XA) Jun, Open breast wound (ICD-10 - S21.009A) PLAN OF TREATMENT Next Appt Details 1 Week Reason: Provider Name:Alexandrea Harris, 06-26 08:00:00 AM, [address], , [place], [address], Provider Name:Clark Kovacscarter, 09:30:00 AM, [address], , [place], [address], Insurance Providers Payer Name Payer Address Payer Phone Insured Name Patient Relati onship to Insured Coverage Start Date Coverage End Date [facility] [employer] [facility] [address] [facility] [id number] POLO RAMIREZ self
--- OUTSIDE RECORDS SUMMARY | 2021-07-16 07:39 | CCD ---
Author Author [facility] Organization [facility] Address Unknown Phone Unavailable Care Team Providers Care Assembly Inspector Name Role Phone Christopher Franck Unavailable PROBLEMS ALLERGIES ENCOUNTERS from 1971 to 2021-06-10 IMMUNIZATIONS SOCIAL HISTORY REASON FOR REFERRAL No Information VITAL SIGNS MEDICATIONS PROCEDURES No Information RESULTS No Results REASON FOR VISIT MEDICAL (GENERAL) HISTORY Goals Section Health Concerns MEDICAL EQUIPMENT No Information MENTAL STATUS FUNCTIONAL STATUS ASSESSMENTS PLAN OF TREATMENT Insurance Providers
--- OUTSIDE RECORDS SUMMARY | 2021-07-16 07:49 | CCD ---
Author Author [facility] Organization [facility] Address Unknown Phone Unavailable Care Team Providers Care Guardian Family Member Name Role Phone Juanis Dickerson MD Unavailable Unavailable Juanis Dickerson [...] Unavailable Unavailable Juanis Dickerson MD Unavailable Unavailable TONY, T ALLA Unavailable Unavailable DINORASocorro MORAN MARILEE Unavailable Unavailable Scordo, M Tanya PA Unavailable [...] M Tanya PA Unavailable Unavailable Scordo, M Tanay PA Unavailable Unavailable Scordo, M Tanya PA [...] PA Unavailable Unavailable Aj Mccullough MD Unavailable [email or web address] Aj Mccullough MD Unavailable [email or web address] Aj Mccullough MD Unavailable [email or web address] Aj Mccullough MD Unavailable [email or web address] Aj Mccullough MD Unavailable [email or web address]@[email or web address] Aj Mccullough MD Unavailable [email or web address]@[email or web address] Aj Mccullough MD Unavailable [email or web address]@[email or web address] Aj Mccullough MD Unavailable shapiran@[email or web address] Aj Mccullough MD Unavailable [email or web address] Aj Mccullough MD Unavailable shapiran@[email or web address] Aj Mccullough MD Unavailable shapiran@[email or web address] Aj Mccullough MD Unavailable shapiran@[email or web address] Aj Mccullough MD Unavailable shapiran@[email or web address] Aj Mccullough MD Unavailable shapiran@[email or web address] Aj Mccullough MD Unavailable shapiran@[email or web address] Aj Mccullough MD Unavailable shapiran@[email or web address] Aj Mccullough MD Unavailable shapiran@[email or web address] Aj Mccullough MD Unavailable shapiran@[email or web address] Aj Mccullough MD Unavailable shapiran@[email or web address] Aj Mccullough MD Unavailable shapiran@[email or web address] Aj Mccullough MD Unavailable shapiran@[email or web address] Aj Mccullough MD Unavailable shapiran@[email or web address] Aj Mccullough MD Unavailable shapiran@[email or web address] Aj Mccullough MD Unavailable shapiran@[email or web address] Aj Mccullough MD Unavailable shapiran@[email or web address] Aj Mccullough MD Unavailable shapiran@[email or web address] Aj Mccullough MD Unavailable shapiran@[email or web address] Aj Mccullough MD Unavailable shapiran@[email or web address] PHILLIP BARON NP, NP Unavailable [email or web address] LEUBNER TECHNICAL PHOTOGRAPHER, PHILLIP LUJAN TECHNICAL PHOTOGRAPHER Unavailable [email or web address] LEUBNER TECHNICAL PHOTOGRAPHER, PHILLIP LUJAN TECHNICAL PHOTOGRAPHER Unavailable [email or web address] LEUBNER TECHNICAL PHOTOGRAPHER, PHILLIP LUJAN TECHNICAL PHOTOGRAPHER Unavailable [email or web address] LEUBNER TECHNICAL PHOTOGRAPHER, PHILLIP LUJAN TECHNICAL PHOTOGRAPHER Unavailable [email or web address] LEUBNER TECHNICAL PHOTOGRAPHER, PHILLIP LUJAN TECHNICAL PHOTOGRAPHER Unavailable [email or web address] LEUBNER TECHNICAL PHOTOGRAPHER, PHILLIP LUJAN TECHNICAL PHOTOGRAPHER Unavailable [email or web address] LEUBNER TECHNICAL PHOTOGRAPHER, PHILLIP BARNEYNA TECHNICAL PHOTOGRAPHER Unavailable [email or web address] LEUBNER TECHNICAL PHOTOGRAPHER, PHILLIP LUJAN TECHNICAL PHOTOGRAPHER Unavailable [email or web address] LEUBNER TECHNICAL PHOTOGRAPHER, PHILLIP LUJAN TECHNICAL PHOTOGRAPHER Unavailable [email or web address] LEUBNER TECHNICAL PHOTOGRAPHER, PHILLIP LUJAN TECHNICAL PHOTOGRAPHER Unavailable [email or web address] LEUBNER TECHNICAL PHOTOGRAPHER, PHILLIP LUJAN TECHNICAL PHOTOGRAPHER Unavailable [email or web address] LEUBNER TECHNICAL PHOTOGRAPHER, PHILLIP LUJAN TECHNICAL PHOTOGRAPHER Unavailable [email or web address] LEUBNER TECHNICAL PHOTOGRAPHER, PHILLIP LUJAN TECHNICAL PHOTOGRAPHER Unavailable [email or web address] LEUBNER TECHNICAL PHOTOGRAPHER, PHILLIP LUJAN TECHNICAL PHOTOGRAPHER Unavailable [email or web address] LEUBNER TECHNICAL PHOTOGRAPHER, PHILLIP LUJAN TECHNICAL PHOTOGRAPHER Unavailable [email or web address] LEUBNER TECHNICAL PHOTOGRAPHER, PHILLIP LUJAN TECHNICAL PHOTOGRAPHER Unavailable [email or web address] LEUBNER TECHNICAL PHOTOGRAPHER, PHILLIP LUJAN TECHNICAL PHOTOGRAPHER Unavailable [email or web address] LEUBNER TECHNICAL PHOTOGRAPHER, PHILLIP LUJAN TECHNICAL PHOTOGRAPHER Unavailable [email or web address] LEUBNER TECHNICAL PHOTOGRAPHER, PHILLIP LUJAN TECHNICAL PHOTOGRAPHER Unavailable [email or web address] LEUBNER TECHNICAL PHOTOGRAPHER, PHILLIP LUJAN TECHNICAL PHOTOGRAPHER Unavailable [email or web address] LEUBNER TECHNICAL PHOTOGRAPHER, PHILLIP LUJAN TECHNICAL PHOTOGRAPHER Unavailable [email or web address] LEUBNER TECHNICAL PHOTOGRAPHER, PHILLIP LUJAN TECHNICAL PHOTOGRAPHER Unavailable [email or web address] AJ MCCULLOUGH Unavailable Unavailable Rojelio SANTOS Unavailable Unavailable Mana, Socorro Fraser MD Unavailable Unavailable Mcdonald, Socorro Fraser MD Unavailable Unavailable Mana, Socorro Fraser MD Unavailable Unavailable Mana, Socorro Fraser MD Unavailable Unavailable Mcdonald, Socorro Fraser MD Unavailable Unavailable Mcdonald, Socorro Fraser MD Unavailable Unavailable Mana, Socorro Fraser MD Unavailable Unavailable Mcdonald, Socorro Fraser MD Unavailable Unavailable Mana, Socorro Fraser MD Unavailable Unavailable Mana, Socorro Fraser MD Unavailable Unavailable Mana, Socorro Fraser MD Unavailable Unavailable Mcdonald, Socorro Fraser MD Unavailable Unavailable Mana, Socorro Fraser MD Unavailable Unavailable Mcdonald, Socorro Fraser MD Unavailable Unavailable Mcdonald, Socorro Fraser MD Unavailable Unavailable Mana, Socorro Fraser MD Unavailable Unavailable Mcdonald, Socorro Fraser MD Unavailable Unavailable Mana, Socorro Fraser MD Unavailable Unavailable Mana, Socorro Fraser MD Unavailable Unavailable Mana, Socorro Fraser MD Unavailable Unavailable Mcdonald, Socorro Fraser MD Unavailable Unavailable Mana, Socorro Fraser MD Unavailable Unavailable Mana, Socorro Fraser MD Unavailable Unavailable Mcdonald, Socorro Fraser MD Unavailable Unavailable Mana, Socorro Fraser MD Unavailable Unavailable Mana, Socorro Fraser MD Unavailable Unavailable Mana, Socorro Fraser MD Unavailable Unavailable Mana, Socorro Fraser MD Unavailable Unavailable Mana, Socorro Fraser MD Unavailable Unavailable Mcdonald, Socorro Fraser MD Unavailable Unavailable Mana, Socorro Fraser MD Unavailable Unavailable Mcdonald, Socorro Fraser MD Unavailable Unavailable Mcdonald, Socorro Fraser MD Unavailable Unavailable Mcdonald, Socorro Fraser MD Unavailable Unavailable Mcdonald, Socorro Fraser MD Unavailable Unavailable Mcdonald, Socorro Fraser MD Unavailable Unavailable Mana, Socorro [...] Swati Hernandez MD Unavailable Unavail able Swati Hernandezushal MD Unavailable Unavail able Nanavati, Swati Hutchison [...] Nanavati, Bhalchandra Foster MD Unavailable Unavail able MIX, OVI CUMMINS Unavailable Unavailable MIX, OVI [...] Unavailable Unavailable CHÁVEZ, L ELVIA Unavailable Unavailable Negro MALDONADO Unavailable Unavailable DARCY TENORIO MD Unavailable [...] Unavailable Unavailable DARCY TENORIO MD Unavailable Unavailable TENORIO, TAVERAS BERNIE MD Unavailable Unavailable TENORIO, TAVERAS BERNIE MD Unavailable Unavailable TENORIO, TAVERAS BERNIE MD Unavailable Unavailable TENORIO, ATVERAS BERNIE MD Unavailable Unavailable TENORIO, TAVERAS BERNIE MD Unavailable Unavailable TENORIO, TAVERAS BERNIE MD Unavailable Unavailable TENORIO, TAVERAS BERNIE MD Unavailable Unavailable TENORIO, TAVERAS BERNIE MD Unavailable Unavailable TENORIO, TAVERAS BERNIE MD Unavailable Unavailable TENORIO, TAVERAS BERNIE MD Unavailable Unavailable TENORIO, TAEVRAS BERNIE MD Unavailable Unavailable TENORIO, TAVERAS BERNIE MD Unavailable Unavailable TENORIO, TAVERAS BERNIE MD Unavailable Unavailable TENORIO, TAVERAS BERNIE MD Unavailable Unavailable TENORIO, TAVERAS BERNIE MD Unavailable Unavailable TENORIO, TAVERAS BERNIE MD Unavailable Unavailable TENORIO, TAVERAS BERNIE MD Unavailable Unavailable TENORIO, TAVERAS BERNIE MD Unavailable Unavailable TENORIO, TAVERAS BERNIE MD Unavailable Unavailable ETNORIO, TAVERAS BERNIE MD Unavailable Unavailable TENORIO, TAVERAS BERNIE MD Unavailable Unavailable TENORIO, TAVERAS BERNIE MD Unavailable Unavailable Stephen LUBINANTHA Unavailable Unavailable Giovanny Borja MD Unavailable Unavailable [...] Unavailable Unavailable Giovanny Bojra MD Unavailable Unavailable Giovanny Borja MD Unavailable Unavailable Giovanny Borja MD Unavailable Unavailable Giovanny Borja MD Unavailable Unavailable Giovanny Borja MD Unavailable Unavailable Giovanny Borja MD Unavailable Unavailable Giovanny Borja MD Unavailable Unavailable Giovanny Borja MD Unavailable Unavailable Nela Juarez Unavailable Unavailable Nela Juarez Unavailable Unavailable Nela Juarez Ann Unavailable Unavailable AnnNela hays Ann Unavailable Unavailable Ann, Jade Unavailable Unavailable Ann, Jade Unavailable Unavailable Ann, Jade Unavailable Unavailable Ann, Jade Unavailable Unavailable Ann, Jade Unavailable Unavailable Ann, Jade Unavailable Unavailable Ann, Jade Unavailable Unavailable Ann, Jade Unavailable Unavailable Ann, Jade Unavailable Unavailable Ann, Jade Unavailable Unavailable Ann, Jade Unavailable Unavailable Ann, Jade Unavailable Unavailable Ann, Jade Unavailable Unavailable Ann, Jade Unavailable Unavailable Ann, Jade Unavailable Unavailable Ann, Jade Unavailable Unavailable Ann, Jade Unavailable Unavailable Ann, Jade Unavailable Unavailable Ann, Jade Unavailable Unavailable Ann, Jade Unavailable Unavailable Ann, Jade Unavailable Unavailable Ann, Jade Unavailable Unavailable Ann, Jade Unavailable Unavailable Ann, Jade Unavailable Unavailable Sarah FELIX Unavailable Unavailable Enedelia Montero MD Unavailable Unavailable VarEnedelia viramontes Rajiv MD Unavailable Unavailable VarEnedelia viramontes Rajiv MD Unavailable Unavailable VarEnedelia viramontes Rajiv MD Unavailable Unavailable VarEnedelia viramontes Rajiv MD Unavailable Unavailable Varwander M Rajiv MD Unavailable Unavailable Varwander M Rajiv MD Unavailable Unavailable Varwander M Rajiv MD Unavailable Unavailable Varwander M Rajiv MD Unavailable Unavailable Varwander M Rajiv MD Unavailable Unavailable Varwander M Rajiv MD Unavailable Unavailable VarEnedelia viramontes Rajiv MD Unavailable Unavailable Varwander M Rajiv MD Unavailable Unavailable VarEnedelia viramontes Rajiv MD Unavailable Unavailable Varwander M Rajiv MD Unavailable Unavailable Varwander M Rajiv MD Unavailable Unavailable Varwander M Rajiv MD Unavailable Unavailable Varwander M Rajiv MD Unavailable Unavailable Varwadner M Rajiv MD Unavailable Unavailable Varwander M Rajiv MD Unavailable Unavailable Varwander M Rajiv MD Unavailable Unavailable Varwander M Rajiv MD Unavailable Unavailable Varwander M Rajiv MD Unavailable Unavailable Varwander M Rajiv MD Unavailable Unavailable Varwander M Rajiv MD Unavailable Unavailable Varwander M Rajiv MD Unavailable Unavailable Varwander M Rajiv MD Unavailable Unavailable Varwander M Rajiv MD Unavailable Unavailable Varwander M Rajiv MD Unavailable Unavailable Varwander M Rajiv Unavailable Unavailable Varwander M Rajiv MD Unavailable Unavailable Varwander M Rajiv MD Unavailable Unavailable Varwander M Rajiv Unavailable Unavailable Varki, Enedelia Vance MD Unavailable Unavailable Varki, Enedelia Vance MD Unavailable Unavailable Varki, Enedelia Vance MD Unavailable Unavailable Varki, Enedelia Vance MD Unavailable Unavailable Varki, Enedelia Vance MD Unavailable Unavailable Varki, Enedelia Vance MD Unavailable Unavailable Varki, Enedelia Vance MD Unavailable Unavailable Varki, Enedelia Vance MD Unavailable Unavailable Varki, Enedelia Vance MD Unavailable Unavailable Varki, Enedelia Vance MD Unavailable Unavailable Varki, Enedelia Vance MD Unavailable Unavailable Varki, Enedelia Vance MD Unavailable Unavailable Varki, Enedelia Vance MD Unavailable Unavailable Varki, Enedelia Vance MD Unavailable Unavailable EUGENIA CRUZ Unavailable Unavailable SPENCER, F CLAIR Unavailable Unavailable PROVIDER, TEST DEFAULT Unavailable Unavailable Saad TELLEZ Unavailable Unavailable Spencer, F Clair Unavailable Spencer, F Clair Unavailable Spencer, F Clair Unavailable Spencer, F Clair Unavailable Spencer, F Clair Unavailable Spencer, F Clair Unavailable Spencer, F Clair Unavailable Spencer, F Clair Unavailable Spencer, F Clair Unavailable Spencer, F Clair Unavailable Spencer, F Clair Unavailable Spencer, F Clair Unavailable SivscarlettiraDevyn vallecillo MD Unavailable Unavailable SivapiragasamDevyn MD Unavailable Unavailable SivapiragasamDevyn MD Unavailable Unavailable SivapiragasamDevyn MD Unavailable Unavailable SivapiragasamDevyn MD Unavailable Unavailable SivapiragasamDevyn MD Unavailable Unavailable Sivapiragasam, Devyn CUMMINS Unavailable Unavailable Sivapiragasam, Devyn CUMMINS Unavailable Unavailable Sivapiragasam, Devyn CUMMINS Unavailable Unavailable Sivapiragasam, Devyn CUMMINS Unavailable Unavailable Sivapiragasam, Devyn CUMMINS Unavailable Unavailable Sivapiragasam, Abirami MD Unavailable Unavailable [...] Unavailable Sivapiragasam, Abirami MD Unavailable Unavailable Devyn Talbot MD Unavailable [...] MD Unavailable Unavailable Sarah ARCEO Unavailable Unavailable OZDEN, NURI Unavailable Unavailable OZDEN, [...] is protected by Article 27-F of the [facility] Public Health law. If you continue you may have access to information: Regarding HIV / AIDS; Provided by facilities licensed or operated by the [facility] Office of Mental Health; or Provided by the [facility] Office for People With Developmental Disabilities. If such information is present, then the following [facility] mandated warning applies: This information [...] law may result in a fine or group home sentence or both. A general authorization for the release of medical or other information is NOT sufficient authorization for further disc losure. Allergies and Adverse Reactions Type Description Substance Reaction Status Data Source(s ) Chantix & Bactrim Chantix & Bactrim Chantix & Bactrim acti ve NETSMART ([facility]) Family History Family Member Name Family Member Gender Family Member Status Date o f Status Description Data Source(s) Unknown Male Problem [facility] ([facility]) Unknown Unknown Encounters Encounter Providers Location Date Indications Data Source(s ) Outpatient Attender: Giovanny Borja MDReferrer: Giovanny murry MD 04/30/2022 12:00:00 AM [facility] Outpatient Attender: Giovanny Borja MDReferrer: Giovanny murry MD 04/30/2022 12:00:00 AM [facility] Outpatient Referrer: Giovanny Borja MD 10/07/2021 12:00:00 AM [facility] Outpatient Attender: Devyn Talbot MD 08/21/2021 1 2:00:00 AM [facility] Outpatient [address] [facility] [address] 07/10/2021 12:00:00 AM EST eCW1 ([facility]) Outpatient Attender: Clair PalmerAttender: CLAIR LangeA-ONCCACTR 06/27/2021 12:00:00 AM EST - 06/27/2021 03:49:25 PM [facility] Unknown [address] [facility], [facility] [address] 06/25/2021 12:00:00 AM EST eCW1 ([facility]) (WND NP120) New Patient 120 Min [address] [place] [address] 06/19/2021 12:00:00 AM EST eCW1 (Critical access hospital) Nela Juarez MD: [address] [place] [address], Ph. 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 [address] [place] [address] 06/06/2021 12:00:00 AM EDT eCW1 ([facility]) Outpatient Attender: Devyn Talbot MD [id number] 05/22/2021 12:00:00 AM EDT - 05/22/2021 02:17:31 PM [facility] Outpatient Attender: AJ Santos er: Aj Mccullough MDReferrer: Giovanny Borja MD 05/21/2021 12:00:00 AM EDT [facility] Outpatient Referrer: CLAIR PALMER 05/14/2021 12:00:00 AM [facility] Outpatient Attender: DARIUS KOCHReferrer: CLAIR PALMER 05/12/2021 12:00:00 AM [facility] Outpatient Attender: AJ Santos er: Aj Mccullough MDReferrer: Giovanny Borja MD 05/05/2021 12:00:00 AM EDT [facility] Outpatient Attender: EUGENIA Marshallender: KRISTEN PROVI NICK 05/01/2021 12:00:00 AM [facility] Outpatient Attender: Rajiv Montero MDReferrer: SUMAN CAZARES MD [id number] 04/28/2021 02:23:40 PM EDT [facility] Outpatient Attender: Juanis Valles/[place]/Flaquito méndez 04/25/2021 11:00:00 AM EDT MEDENT ([facility]) Outpatient Attender: Giovanny Borja MDReferrer: Giovanny murry MD [id number] 04/22/2021 12:00:00 AM EDT - 04/22/2021 12:18:53 PM EDT [facility] Outpatient Attender: Giovanny Borja MDReferrer: Giovanny murry MD 04/22/2021 12:00:00 AM EDT Malignant neoplasm of overlapping sites of left female breast [facility] Malignant neoplasm of overlapping sites of left female breast Outpatient Attender: BEAU MALDONADO 04/10/2021 12:00:00 AM EDT [facility] Outpatient Attender: AJ Alexis-RONCACTR 04/07/2021 10:41:47 AM [facility] Outpatient Attender: Devyn Talbot MD -ONCCACTR 04/02/2021 12:00:00 AM EDT - 04/02/2021 02:25:59 PM EDT Malignant neoplasm of overlapping sites of left female breast [facility] Malignant neoplasm of overlapping sites of left female breast Outpatient Attender: Aj Quinn anne: AJ MCCULLOUGHReferrer: Giovanny Borja MD [address] [place] [address] 04/02/2021 12:00:[address] [facility] sim Outpatient Attender: BERNIE TENORIO MDReferrer: Giovanny Adkins 04/01/2021 12:00:00 AM EDT [facility] ct sim Outpatient Attender: Aj sosaer: AJ MCCULLOUGHReferrer: Giovanny Borja MD [facility] 03/26/2021 12:00:[address] [facility] ct sim Outpatient Attender: OVI DELONG MDReferrer: Giovanny Borja MD [facility] 03/24/2021 12:00:00 AM EDT [facility] ct sim Outpatient Attender: BERNIE TENORIO MDReferrer: Giovanny Adkins 03/20/2021 12:00:00 AM EDT [facility] ct sim Outpatient Attender: BERNIE TENORIO MDReferrer: Giovanny Adkins 03/19/2021 12:00:00 AM EDT [facility] ct sim Outpatient Attender: Devyn Talbot MD 03/19/2021 1 2:00:00 AM EDT [facility] Tanya Mcintosh PA-C: [address], [place] [address], Ph. Attender: Tanya [facility] Medical 03/18/2021 12:00:00 AM EDT REZA ([facility]) Tanya Mcintosh PA-C: [address], [place] [address], Ph. Attender: Tanya [facility] Medical 03/18/2021 12:00:00 AM EDT LA FERIA ([facility]) Outpatient Attender: Aj Quinn anne: AJ MCCULLOUGHReferrer: Giovanny Borja MD [address] [place] [address] 03/12/2021 12:00:00 AM EDT [facility] Outpatient Referrer: Giovanny Borja MD 03/10/2021 12:00:00 AM EDT [facility] Outpatient Attender: AJ Santos er: Aj Mccullough MDReferrer: Giovanny Borja MD [address] [place] [address] 03/05/2021 12:00:00 AM EDT [facility] MONA HuffC: [address], [place] [address], Ph. Attender: Tanya [facility] Medical 03/03/2021 12:00:00 AM EDT REZA ([facility]) Tanya Mcintosh PA-C: [address], [place] [address], Ph. Attender: Tanya [facility] Medical 03/03/2021 12:00:00 AM EDT REZA ([facility]) Tanya Mcintosh PA-C: [address] [place] [phone], Ph. Attender: Tanya MARTE - [facility] Medical 03/03/2021 12:00:00 AM EDT REZA ([facility]) Outpatient Attender: BERNIE TENORIO MDReferrer: Giovanny Adkins 03/03/2021 12:00:[address] [facility] ct sim Outpatient Attender: Devyn Talbot MD 02/27/2021 1 2:00:00 AM EDT [facility] Outpatient Attender: Aj sosaer: AJ MCCULLOUGHReferrer: Giovanny Borja MD 02/26/2021 12:00:[address] [facility] ct sim Outpatient Attender: Devyn Talbot MD 02/20/2021 1 2:00:00 AM EDT [facility] Outpatient Attender: Aj sosaer: AJ MCCULLOUGHReferrer: Giovanny Borja MD [address] [place] [address] 02/19/2021 12:00:[address] [facility] ct sim Outpatient Referrer: CLAIR PALMER 02/18/2021 12:00 :00 AM EDT Malignant neoplasm of overlapping sites of left female breast [facility] Malignant neoplasm of overlapping sites of left female breast Outpatient Attender: AJ Santos er: Aj BRANDONeferrer: Giovanny Borja MD 02/12/2021 12:00:[address] [facility] ct sim Outpatient Referrer: Giovanny Borja MD 02/06/2021 12:00:[address] [facility] ct sim Outpatient Attender: Aj rodríguez: AJ MCCULLOUGHReferrer: Giovanny Borja MD [address] [place] [address] 02/05/2021 12:00:[address] [facility] ct sim Outpatient 01/30/2021 12:00:00 AM EDT [facility] Outpatient Attender: AJ Santos er: Aj BRANDONeferrer: Giovanny Borja MD [address] [place] [address] 01/29/2021 12:00:00 AM EDT - 01/29/2021 02:34:[address] [facility] ct sim Outpatient 01/29/2021 12:00:00 AM T [facility] Outpatient Attender: AJ MCCULLOUGHReferrer: Giovanny Borja MD [address] [place] [address] 01/20/2021 12:00:[address] [facility] ct [facility] Outpatient Attender: AJ MCCULLOUGHReferrer: [facility] 01/15/2021 12:00:00 AM EDT - 01/15/2021 03:17:51 PM EDT Malignant neoplasm of overlapping sites of left female breast [facility] Malignant neoplasm of overlapping sites of left female breast Outpatient Attender: Ovi Adair MD 01/14/2021 12:00:0 0 AM [facility] Outpatient Attender: ALLA JIMENEZ 01/09/2021 12:0 0:00 AM EDT Malignant neoplasm of overlapping sites of left female breast [facility] Malignant neoplasm of overlapping sites of left female breast Outpatient Referrer: Giovanny Borja MD 01/07/2021 12:00:00 AM EDT [facility] ct [facility] Unknown [address] [facility] [address] 01/07/2021 12:00:00 AM EDT eCW1 ([facility]) Outpatient Attender: Aj Quinn anne: AJ MCCULLOUGHReferrer: Giovanny Borja MD [id number] 01/02/2021 12:00:00 AM EDT - 01/03/2021 09:36:55 AM EDT [facility] Outpatient 01/02/2021 12:00:00 AM T [facility] ([id number]) For [employer] [address] [place] [address] 12/31/2020 12:00:00 AM EDT eCW1 (Critical access hospital) Outpatient Referrer: DARIUS KOCH 12[facility] JA Anand: Tyrone Cheng MD [id number] 12/27/2020 12:00:00 AM EDT - 12/27/2020 12:25:38 PM EDT Malignant neoplasm of overlapping sites of left female breast [facility] Malignant neoplasm of overlapping sites of left female breast Unknown [address] [facility] [address] 12/24/2020 12:00:00 AM EDT eCW1 ([facility]) ([id number]) For Template [employer] [address] [place] [address] 12/24/2020 12:00:00 AM EDT eCW1 ([facility] hospital) Outpatient Attender: ELVIA CHÁVEZ 021 12:00:00 AM EDT - 12/19/2020 03:41:38 PM EDT Malignant neoplasm of overlapping sites of left female breast [facility] Malignant neoplasm of overlapping sites of left female breast Outpatient [address] [facility] [address] 12/17/2020 12:00:00 AM EDT eCW1 ([facility]) Outpatient Referrer: CLAIR PALMER 12/13/2020 12:00 :00 AM EDT Encounter for therapeutic drug level monitoring [facility] Encounter for therapeutic drug level mon itoring Outpatient [address] [facility] [address] 12/03/2020 12:00:00 AM EDT eCW1 ([facility]) Outpatient Attender: MARILEE PAUL [id number] 0 11/29/2020 10:00:03 AM EDT [facility] Outpatient Attender: CLAIR PALMER 11/29/2020 12:00:00 AM EDT [facility] Outpatient Attender: Giovanny Borja MD [id number] 11/28 12:00:00 AM EDT - 11/28/2020 03:08:49 PM EDT Malignant neoplasm of overlapping sites of left female breast [facility] Malignant neoplasm of overlapping sites of left female breast Outpatient Attender: Devyn Talbot MD [id number] 11/28/2020 12:00:00 AM EDT - 11/29/2020 10:04:31 AM EDT Malignant neoplasm of unspecified site o f left female [facility] Malignant neoplasm of unspecified site o f left female breast Outpatient Attender: AJ Anand: Giovanny Borja MD [id number] 11/28/2020 12:00:00 AM EDT - 11/28/2020 03:24:36 PM EDT Malignant neoplasm of overlapping sites of left female breast [facility] Malignant neoplasm of overlapping sites of left female breast Outpatient Attender: AJ Anand: Giovanny Borja MD 11/28/2020 12:00:00 AM EDT Malignant neoplasm of overlapping sites of left female breast [facility] Malignant neoplasm of overlapping sites of left female breast Outpatient Attender: Giovanny Borja MD 11/19/2020 12:00:00 AM EDT [facility] Unknown [address] [facility] [address] 11/18/2020 12:00:00 AM EDT eCW1 ([facility]) Tanya Mcintosh PA-C: [address], [place] [address], Ph. Attender: Tanya CHAWLA [facility] Medical 11/15/2020 12:00:00 AM EDT [place] [facility] ([facility]) Tanya Mcintosh PA-C: [address], [place] [address], Ph. Attender: Tanya CHAWLA [facility] Medical 11/15/2020 12:00:00 AM EDT [place] ([facility]) Tanya Mcintosh PA-C: [address], [place] [address], Ph. Attender: Tanya CHAWLA [facility] Medical 11/15/2020 12:00:00 AM EDT [place] ([facility]) Tanya Mcintosh PA-C: [address], [place] [address], Ph. Attender: Tanya CHAWLA [facility] Medical 11/15/2020 12:00:00 AM EDT [place] ([facility]) Outpatient Attender: CLAIR PALMER 11/14/2020 12:00:00 AM EDT [facility] Outpatient Attender: Rajiv Montero MDReferrer: SUMAN CAZARES MD [id number] 11/12/2020 11:28:16 AM EDT [facility] Outpatient Attender: CLAIR PALMER 11/08/2020 12:00:00 AM EDT [facility] Outpatient Attender: MARILEE PAUL [id number] 0 11/06/2020 11:43:13 AM EDT [facility] Outpatient Attender: Devyn Talbot MD 11/06/2020 1 2:00:00 AM EDT [facility] Outpatient Attender: AJ MCCULLOUGHReferrer: Giovanny Borja MD 11/01/2020 12:00:00 AM EDT Malignant neoplasm of overlapping sites of left female breast [facility] Malignant neoplasm of overlapping sites of left female breast Tanya Mcintosh PA-C: [address], [facility] [place] [address], Ph. Attender: Tanya CHAWLA [facility] Medical 10/31/2020 12:00:00 AM EDT [facility]) Tanya Mcintosh PA-C: [address], [place] [address], Ph. Attender: Tanya CHAWLA [facility] Medical 10/31/2020 12:00:00 AM EDT [facility]) Tanya Mcintosh PA-C: [address], [place] [address], Ph. Attender: Tanya CHAWLA [facility] Medical 10/31/2020 12:00:00 AM EDT [place] ([facility]) Tanya Mcintosh PA-C: [address], [place] [address], Ph. Attender: Tanya CHAWLA [facility] Medical 10/31/2020 12:00:00 AM EDT REZA ([facility]) Tanya Mcintosh PA-C: [address], [place] [address], Ph. Attender: Tanya CHAWLA [facility] Medical 10/31/2020 12:00:00 AM EDT [place] ([facility]) Tanya Mcintosh PA-C: [address], [place] [address], Ph. Attender: Tanya CHAWLA [facility] Medical 10/31/2020 12:00:00 AM EDT [place] ([facility]) Tanya Mcintosh PA-C: [address], [place] [address], Ph. Attender: Tanya CHAWLA [facility] Medical 10/31/2020 12:00:00 AM EDT [place] ([facility]) Outpatient Attender: SOTERO TELLEZReferrer: CLAIR PALMER 10/29/2020 12:00:00 AM [facility] Outpatient Attender: AJ MCCULLOUGH 2020 12:00:00 AM [facility] Outpatient Attender: AJ MCCULLOUGH 2020 12:00:00 AM [facility] Outpatient Referrer: CLAIR PALMER 2020 12:00:00 AM [facility] Outpatient Referrer: CLAIR PALMER 2020 12:00:00 AM [facility] Outpatient Attender: DARIUS KOCHReferrer: Tanya CHAWLA 0 [id number] 10/25/2020 12:00:00 AM EDT - 10/25/2020 02:15:34 PM EDT Other specified diseases of biliary tract [facility] Other specified diseases of biliary trac t Outpatient Attender: Bo CHAWLA 10/20/19 11:51:50 AM EST - 10/19/2020 12:37:17 PM EST DocuTap ([facility] ) Outpatient Attender: Giovanny Borja MD [id number] 10/17 12:00:00 AM EST - 10/17/2020 12:17:38 PM EST Malignant neoplasm of overlapping sites of left female breast [facility] Malignant neoplasm of overlapping sites of left female breast Outpatient Attender: SOTERO TELLEZ 10/15/2020 12:00:00 AM [facility] Outpatient Referrer: CLAIR PALMER 10/14/2020 12:00:00 AM [facility] Outpatient Referrer: CLAIR PALMER 10/14/2020 12:00:00 AM [facility] Outpatient Referrer: CLAIR PALMER 10/14/2020 12:00:00 AM [facility] Outpatient Referrer: CLAIR PALMER 10/14/2020 12:00:00 AM [facility] Tanya Mcintosh PA-C: [address], [facility] [address], Ph. Attender: T[place]AWLA [facility] [place]/11/2020 12:00:00 AM EST REZA ([facility]) Tanya Mcintosh PA-C: [address], [place] [address], Ph. Attender: Tanya CHAWLA [facility] 10/11/2020 12:00:00 AM EST REZA ([facility]) Tanya Mcintosh PA-C: [address], [place] [address], Ph. Attender: Tanya CHAWLA [facility] Medical 10/11/2020 12:00:00 AM EST REZA ([facility]) Tanya Mcintosh PA-C: [address], [place] [address], Ph. Attender: Tanya CHAWLA [facility] Medical 10/11/2020 12:00:00 AM EST REZA ([facility]) Tanya Mcintosh PA-C: [address], [place] [address], Ph. Attender: Tanya CHAWLA [facility] Medical 10/11/2020 12:00:00 AM EST REZA ([facility]) Tanya Mcintosh PA-C: [address], [place] [address], Ph. Attender: Tanya CHAWLA [facility] Medical 10/11/2020 12:00:00 AM EST REZA ([facility]) Tanya Mcintosh PA-C: [address], [place] [address], Ph. Attender: Tanya CHAWLA [facility] Medical 10/11/2020 12:00:00 AM EST REZA ([facility]) Tanya Mcintosh PA-C: [address], [place] [address], Ph. Attender: Tanya CHAWLA [facility] Medical 10/11/2020 12:00:00 AM EST REZA ([facility]) Outpatient 10/08/2020 01:23:08 PM EST - 021 02:30:42 PM EST DocuTap ([facility]) 10/07/2020 12:00:00 AM EST - 021 04:57:29 PM EDT NETSMART ([facility]) Outpatient Attender: Giovanny Person mitter: Giovanny Borja MDReferrer: Giovanny Borja MD 10/02/2020 12:00:00 AM EST Malignant johnie plasm of overlapping sites of left female breast [facility] Malignant neoplasm of overlapping sites of left female breast Outpatient Attender: Giovanny Borja MDAdmitter: Giovanny murry MD [id number] 10/02/2020 12:00:00 AM EST - 10/03/2020 10:35:00 AM EST Acquired absence of left breast and nipple [facility] Acquired absence of left breast and nipp le Patient discharged. Tanya Mcintosh PA-C: [address], [place] [address], Ph. Attender: Tanya CHAWLA [facility] [place] [facility] 09/30/2020 12:00:00 AM EST REZA ([facility]) Tanya Mcintosh PA-C: [address], [place] [address], Ph. Attender: Tanya CHAWLA [facility] Medical 09/30/2020 12:00:00 AM EST REZA ([facility]) Tanya Mcintosh PA-C: [address], [place] [address], Ph. Attender: Tanya CHAWLA [facility] Medical 09/30/2020 12:00:00 AM EST REZA ([facility]) Tanya Mcintosh PA-C: [address], [place] [address], Ph. Attender: Tanya CHAWLA [facility] Medical 09/30/2020 12:00:00 AM EST REZA ([facility]) Tanya Scordo, PA-C: [address], [place] [address], Ph. Attender: Tanya CHAWLA [facility] Medical 09/30/2020 12:00:00 AM EST REZA ([facility]) Tanya Mcintosh PA-C: [address], [place] [address], Ph. Attender: Tanya CHAWLA [facility] Medical 09/30/2020 12:00:00 AM EST REZA ([facility]) Tanya Mcintosh PA-C: [address], [place] [address], Ph. Attender: Tanya CHAWLA [facility] Medical 09/30/2020 12:00:00 AM EST REZA ([facility]) Tanya Mcintosh PA-C: [address], [place] [address], Ph. Attender: Tanya CHAWLA [facility] Medical 09/30/2020 12:00:00 AM EST REZA ([facility]) Tanya Mcintosh PA-C: [address], [place] [address], Ph. Attender: Tanya CHAWLA [facility] Medical 09/30/2020 12:00:00 AM EST REZA ([facility]) Tanya Mcintosh PA-C: [address], [place] [address], Ph. Attender: Tanya CHAWLA [facility] Medical 09/30/2020 12:00:00 AM EST REZA ([facility]) Outpatient Attender: JOSY Gannonerrer: Giovanny Borja MD [id number] 09/27/2020 12:00:00 AM [facility] Outpatient Attender: Giovanny Borja MD [id number] 09/24/2020 12:00:00 AM [facility] Tanya Mcintosh PA-C: [address], [place] [address], Ph. Attender: Tanya CHAWLA [facility] Medical 09/23/2020 12:00:00 AM EST REZA ([facility]) Tanya Mcintosh PA-C: [address], [place] [address], Ph. Attender: Tanya CHAWLA [facility] Medical 09/23/2020 12:00:00 AM EST REZA ([facility]) Tanya Mcintosh PA-C: [address], [place] [address], Ph. Attender: Tanya CHAWLA [facility] Medical 09/23/2020 12:00:00 AM EST REZA ([facility]) Tanya Mcintosh PA-C: [address], [place] [address], Ph. Attender: Tanya CHAWLA [facility] Medical 09/23/2020 12:00:00 AM EST REZA ([facility]) Tanya Mcintosh PA-C: [address], [place] [address], Ph. Attender: Tanya CHAWLA [facility] Medical 09/23/2020 12:00:00 AM EST REZA ([facility]) Tanya Mcintosh PA-C: [address], [place] [address], Ph. Attender: Tanya CHAWLA [facility] Medical 09/23/2020 12:00:00 AM EST REZA ([facility]) Tanya Mcintosh PA-C: [address], [place] [address], Ph. Attender: Tanya CHAWLA [facility] Medical 09/23/2020 12:00:00 AM EST REZA ([facility]) Tanya Mcintosh PA-C: [address], [place] [address], Ph. Attender: Tanya CHAWLA [facility] Medical 09/23/2020 12:00:00 AM EST REZA ([facility]) Tanya Mcintosh PA-C: [address], [place] [address], Ph. Attender: Tanya CHAWLA [facility] Medical 09/23/2020 12:00:00 AM EST REZA ([facility]) Tanya Mcintosh PA-C: [address], [place] [address], Ph. Attender: Tanya CHAWLA [facility] Medical 09/23/2020 12:00:00 AM EST REZA ([facility]) Outpatient Attender: Bo CHAWLA 09/22/19 10:07:46 AM EST - 09/22/2020 10:51:46 AM EST DocuTap ([facility] ) Outpatient Attender: SOTERO TELLEZReferrer: CLAIR PALMER [id number] 09/17/2020 12:00:00 AM EST - 09/17/2020 12:44:13 PM EST Psychological and behavioral factors associated with disorders or diseases classified elsewhere [facility] Psychological and behavioral factors ass ociated with disorders or diseases classified elsewhere Outpatient Referrer: CLAIR PALMER 09/16/2020 12:00 :00 AM EST Malignant neoplasm of unspecified site of left female breast [facility] Malignant neoplasm of unspecified site o f left female breast Tanya Mcintosh PA-C: [address], [place] [address], Ph. Attender: Tanya CHAWLA [facility] Medical 09/16/2020 12:00:00 AM EST REZA ([facility]) Tanya Mcintosh PA-C: [address], [place] [address], Ph. Attender: Tanya CHAWLA [facility] Medical 09/16/2020 12:00:00 AM EST REZA ([facility]) Tanya Mcintosh PA-C: [address], [place] [address], Ph. Attender: Tanya CHAWLA [facility] Medical 09/16/2020 12:00:00 AM EST REZA ([facility]) Tanya Mcintosh PA-C: [address], [place] [address], Ph. Attender: Tanya CHAWLA [facility] Medical 09/16/2020 12:00:00 AM EST REZA ([facility]) Tanya Mcintosh PA-C: [address], [place] [address], Ph. Attender: Tanya CHAWLA [facility] Medical 09/16/2020 12:00:00 AM EST REZA ([facility]) Tanya Mcintosh PA-C: [address], [place] [address], Ph. Attender: Tanya CHAWLA [facility] Medical 09/16/2020 12:00:00 AM EST REZA ([facility]) Tanya Mcintosh PA-C: [address], [place] [address], Ph. Attender: Tanya CHAWLA [facility] Medical 09/16/2020 12:00:00 AM EST REZA ([facility]) Tanya Mcintosh PA-C: [address], [place] [address], Ph. Attender: Tanya CHAWLA [facility] Medical 09/16/2020 12:00:00 AM EST REZA ([facility]) Tanya Mcintosh PA-C: [address], [place] [address], Ph. Attender: Tanya CHAWLA [facility] Medical 09/16/2020 12:00:00 AM EST REZA ([facility]) Tanya Mcintosh PA-C: [address], [place] [address], Ph. Attender: Tanya CHAWLA [facility] Medical 09/16/2020 12:00:00 AM EST REZA ([facility]) Outpatient 09/12/2020 12:00:00 AM [facility] Outpatient 09/12/2020 12:00:00 AM [facility] Outpatient Attender: Giovanny Borja MD [id number] 09/10/2020 12:00:00 AM [facility] Outpatient Attender: CLAIR PALMER 09/06/2020 12:00:00 AM [facility] Outpatient 09/06/2020 12:00:00 AM [facility] Outpatient Attender: CLAIR PALMER 09/06/2020 12:00:00 AM [facility] Outpatient 09/05/2020 12:00:00 AM [facility] Outpatient Attender: Devyn Talbot MD [id number] 09/04/2020 12:00:00 AM EST - 09/04/2020 03:28:42 PM EST Malignant neoplasm of unspecified site o f left female [facility] Malignant neoplasm of unspecified site o f left female breast Outpatient Attender: CLAIR PALMER 08/30/2020 12:00:00 AM [facility] Outpatient Attender: CLAIR PALMER 08/30/2020 12:00:00 AM [facility] Outpatient Attender: SOTERO TELLEZReferrer: CLAIR Alexis-PMRREHAB 08/28/2020 12:00:00 AM EST Psychological and behavioral factors ass ociated with disorders or diseases classified elsewhere [facility] Psychological and behavioral factors ass ociated with disorders or diseases classified elsewhere Outpatient Attender: AUBREY LUBIN 08/23/2020 12:0 0:00 AM EST Malignant neoplasm of unspecified site of left female [facility] Malignant neoplasm of unspecified site o f left female breast Outpatient 08/23/2020 12:00:00 AM [facility] Outpatient Attender: LACEY FELIX 08/15/19 12:00:00 AM EST - 08/15/2020 04:02:54 PM EST Malignant neoplasm of unspecified site of left female [facility] Malignant neoplasm of unspecified site o f left female breast Outpatient Attender: CLAIR Alexis-ONCCACTR 020 12:00:00 AM EST - 08/08/2020 02:44:16 PM EST Malignant neoplasm of unspecified site o f left female [facility] Malignant neoplasm of unspecified site o f left female breast Tanya Mcintosh PA-C: [address] [place] [address], Ph. Attender: Tanya CHAWLA [facility] Medical 07/29/2020 12:00:00 AM EST REZA ([facility]) Tanya Mcintosh PA-C: [address] [place] [address], Ph. Attender: Tanya CHAWLA [facility] Medical 07/29/2020 12:00:00 AM EST REZA ([facility]) Tanya Mcintosh PA-C: [address], [place] [address], Ph. Attender: Tanya CHAWLA [facility] Medical 07/29/2020 12:00:00 AM EST REZA ([facility]) Tanya Mcintosh PA-C: [address], [place] [address], Ph. Attender: Tanya CHAWLA [facility] Medical 07/29/2020 12:00:00 AM EST REZA ([facility]) Tanya Mcintosh PA-C: [address], [place] [address], Ph. Attender: Tanya CHAWLA [facility] Medical 07/29/2020 12:00:00 AM EST REZA ([facility]) Tanya Mcintosh PA-C: [address], [place] [address], Ph. Attender: Tanya CHAWLA [facility] Medical 07/29/2020 12:00:00 AM EST REZA ([facility]) Tanya Mcintosh PA-C: [address], [place] [address], Ph. Attender: Tanya CHAWLA [facility] Medical 07/29/2020 12:00:00 AM EST REZA ([facility]) Tanya Mcintosh PA-C: [address], [place] [address], Ph. Attender: Tanya CHAWLA [facility] Medical 07/29/2020 12:00:00 AM EST REZA ([facility]) Tanya Mcintosh PA-C: [address], [place] [address], Ph. Attender: Tanya CHAWLA [facility] Medical 07/29/2020 12:00:00 AM EST REZA ([facility]) Tanya Mcintosh PA-C: [address], [place] [address], Ph. Attender: Tanya CHAWLA [facility] [place] 07/29/2020 12:00:00 AM EST REZA ([facility]) Tanya Mcintosh PA-C: [address], [place] [address], Ph. Attender: Tanya CHAWLA [facility] Medical 07/29/2020 12:00:00 AM EST REZA ([facility]) Outpatient 07/25/2020 12:00:00 AM [facility] Outpatient Attender: LE BARON NPAttender: CLAIR OROZCO [id number] 07/18/2020 12:00:00 AM EST - 07/18/2020 03:25:57 PM EST Malignant neoplasm of unspecified site of left female breast [facility] Malignant neoplasm of unspecified site o f left female breast Outpatient Attender: BI SANTOS [id number] 07/18/20 12:00:00 AM EST - 07/18/2020 12:15:35 PM [facility] Outpatient 07/11/2020 12:00:00 AM [facility] Outpatient Attender: Giovanny Borja MD [id number] 07/09 12:00:00 AM EST - 07/09/2020 03:55:56 PM [facility] Outpatient Attender: EZEQUIEL CAREY 07/03/2020 12:00:0 0 AM EST Malignant neoplasm of unspecified site of left female breast [facility] Malignant neoplasm of unspecified site o f left female breast Unknown [address] [facility], [facility] [address] 06/28/2020 12:00:00 AM EST eCW1 ([facility]) Outpatient Attender: Devyn LangeA-ONCCACTR 06/27/2020 12:00:00 AM EST - 06/27/2020 04:12:52 PM EST Malignant neoplasm of unspecified site o f left [facility] Malignant neoplasm of unspecified site o f left female breast Outpatient Attender: Giovanny Borja MDReferrer: Giovanny murry MD 06/27/2020 12:00:00 AM EST Malignant neoplasm of unspecified site of left [facility] Malignant neoplasm of unspecified site o f left female breast Outpatient Attender: Giovanny Borja MDReferrer: Giovanny LangeA-XXHCBCC 06/27/2020 12:00:00 AM EST - 06/27/2020 04:19:02 PM EST Malignant neoplasm of unspecified site of left [facility] Malignant neoplasm of unspecified site o f left female breast Outpatient Attender: Giovanny BRANDONeferrer: Giovanny murry MD 06/27/2020 12:00:00 AM [facility] Outpatient 06/20/2020 12:00:00 AM [facility] Outpatient Attender: MARILEE LangeA-MLTCACTR 1 08/13/2019 11:33:50 AM [facility] Outpatient Attender: LEONARD GARIBAY [id number] 06/13/2020 12:00: 00 AM EST Malignant neoplasm of unspecified site of left [facility] Malignant neoplasm of unspecified site o f left female breast Outpatient Attender: BI LangeA-XXUHRESP 06/13/20 12:00:00 AM EST - 06/13/2020 10:13:45 AM [facility] Outpatient Attender: MARILEE LangeA-MLTCACTR 1 02:43:10 PM [facility] Outpatient Attender: Devyn LangeA-ONCCACTR 06/06/2020 12:00:00 AM EDT - 06/06/2020 08:36:32 AM EDT Malignant neoplasm of unspecified site o f left [facility] Malignant neoplasm of unspecified site o f left female breast Outpatient Attender: Tanya HOLCOMB 05/29/2020 07:40:59 AM EDT [facility] Outpatient Attender: Devyn BRANDONeferr er: Devyn Talbot MD 05/29/2020 12:00:00 AM EDT Malignant neoplasm of unspe cified site of left female [facility] Malignant neoplasm of unspecified site o f left female breast Outpatient Attender: Tanya HOLCOMB 05/20/2020 09:38:00 AM EDT [facility] Outpatient Attender: MARILEE LangeA-MLTCACTR 1 01:58:51 PM EDT [facility] Outpatient Attender: Devyn Talbot MD [id number] 05/15/2020 12:00:00 AM EDT - 05/15/2020 09:08:52 AM EDT Malignant neoplasm of unspecified site o f left female [facility] Malignant neoplasm of unspecified site o f left female breast Outpatient Attender: Foster Hernandez MD [id number] 12:00:00 AM EDT - 05/07/2020 08:33:16 AM EDT [facility] Immunizations Vaccine Date Status Description Data Source(s) COVID-19 VACCINE Moderna 06/23/2021 12:00:00 AM EST completed [facility] Vaccine Series Complete: YESThis Data wa s Submitted to [facility] Via [employer]. COVID-19, mRNA, LNP-S, PF, 100 mcg/0.5 mL dose 05/23/2021 12 :00:00 AM EDT completed 05/23/2021 REZA ([facility]) COVID-19 VACCINE Moderna 05/23/2021 12:00:00 AM EDT completed [facility] Vaccine Series Complete: NOThis Data was Submitted to [facility] Via [employer]. Medications Medication Brand Name Start Date Product Form Dose Route Admi nistrative Instructions Pharmacy Instructions Status Indications Reaction Description Data Source(s) pregabalin 200 MG Oral Capsule Pregabalin 200 MG Oral Capsule (LYRICA) Pregabalin 200 MG Oral Capsule (LYRICA) 06/24/2021 12:00:00 AM EST active TAKE ONE CAPSULE BY MOUTH TWICE A DAY MAXIMUM DAILY DOSE 2 CAPSULES [facility] Clobetasol Propionate 0.0005 MG/MG Topic al Ointment Clobetasol Propionate 0.05 % Clobetasol Propionate 0.05 % 06/06/2021 12:00:00 AM EDT 1.0 {application} active Clobetasol Propionate 0.05 % eCW1 ([facility]) Clobetasol Propionate 0.0005 MG/MG Topic al Ointment Clobetasol Propionate 0.05 % Clobetasol Propionate 0.05 % 06/06/2021 12:00:00 AM EDT 1.0 {application} active eCW1 ([facility]) Clobetasol Propionate 0.0005 MG/MG Topic al Ointment Clobetasol Propionate 0.05 % Clobetasol Propionate 0.05 % 06/06/2021 12:00:00 AM EDT 1.0 {application} active Clobetasol Propionate 0.05 % eCW1 ([facility]) Clobetasol Propionate 0.0005 MG/MG Topic al Ointment Clobetasol Propionate 0.05 % Clobetasol Propionate 0.05 % 06/06/2021 12:00:00 AM EDT 1.0 {application} active Clobetasol Propionate 0.05 % eCW1 ([facility]) Nystatin [id number] UNT/ML Topical Cream Nys tatin 200070 UNIT/GM External Cream (MYCOSTATIN) Nystatin [id number] UNIT/GM External Cream (MYCOSTATIN) 12:00:00 AM EDT aborted Liss gnant neoplasm of overlapping sites of left breast in female, estrogen receptor positive Appl y to vaginal rash twice daily x 10 days [facility] Malignant neoplasm of overlapping sites of left breast in female, estrogen receptor positive Trazodone Hydrochloride 100 MG Oral Tabl et traZODone HCl 100 MG Oral Tablet (DESYREL) traZODone HCl 100 MG Oral Tablet (DESYREL) 05/01/2021 12:00: 00 AM EDT 50 mg Oral active Malignant neop lasm of overlapping sites of left breast in female, estrogen receptor positive Take 0.5 tablets by mouth nightly [facility] Malignant neoplasm of overlapping sites of left breast in female, estrogen receptor positive letrozole 2.5 MG Oral Tablet Letrozole 2.5 MG Oral Tab let (FEMARA) Letrozole 2.5 MG Oral Tablet (FEMARA) 04/04/2021 12:00:00 AM EDT 2.5 mg Oral active Malignant neoplasm of overlapping sites of left breast in female, estrogen receptor positive Take 1 tablet by mouth daily [facility] Malignant neoplasm of overlapping sites of left breast in female, estrogen receptor positive buspirone hydrochloride 15 MG Oral Table t busPIRone HCl 15 MG Oral Tablet (BUSPAR) busPIRone HCl 15 MG Oral Tablet (BUSPAR) 03/19/2021 12:00:00 AM EDT 15 mg Oral active Take 15 mg by mouth Two Times Daily [facility] gabapentin 600 MG Oral Tablet Gabapentin 600 MG Oral T ablet (NEURONTIN) Gabapentin 600 MG Oral Tablet (NEURONTIN) 03/19/2021 12:00:00 AM EDT 600 mg Oral active Take 600 mg by mouth Three times daily [facility] Trazodone Hydrochloride 100 MG Oral Tabl et traZODone HCl 100 MG Oral Tablet (DESYREL) traZODone HCl 100 MG Oral Tablet (DESYREL) 03/19/2021 12:00: 00 AM EDT 50 mg Oral active Take 50 mg by mo [facility] Cholecalciferol 2000 UNT Oral Capsule Vitamin D3 50 MC G (1999 UT) Oral Capsule Vitamin D3 50 MCG (1999) Oral Capsule 03/03/2021 12:00:00 AM EDT Oral active Take by mouth daily [facility] TC-99M labeled red blood cells (ULTRATAG) 02/18/2021 03:00 :00 PM EDT Intravenous completed Intravenous, Once, On Wed02/18/21 at 1500, For 1 dose, Imaging Protocol [facility] Medication administered onsite Fluocinonide 0.5 MG/ML Topical Cream Fluocinonide 0.05 % External Cream (LIDEX) Fluocinonide 0.05 % External Cream (LIDEX) 01/15/2021 12:00:00 AM EDT active Apply to left breast twice daily under Aquaphor [facility] Oxycodone Hydrochloride 10 MG Oral Tablet oxyCODONE HC l 10 MG Oral Tablet oxyCODONE HCl 10 MG Oral Tablet 01/02/2021 12:00:00 AM EDT active TAKE 1 TO 2 TABLETS BY MOUTH EVERY 4 HOURS NEEDED FOR PAIN MAXIMUM DAILY DOSE EIGHT TABLETS [facility] Albuterol Sulfate HFA 108 (90 Base) MCG/ ACT Inhalation Aerosol Solution (PROVENTIL HFA) 0604-1704-73 12/20/2020 12:00:00 AM EDT active INHALE ONE PUFF BY MOUTH EVERY 4 HOURS NEEDED [facility]. Devices (DURABLE MEDICAL EQUIPMENT SEE SIG) XX [facility] 97 [id number] 10/17/2020 12:00:00 AM EST act [facility]ah [facility] Malignant neoplasm of overlapping sites of left breast in female, estrogen receptor positive Use as directed. Breast prosthesis, hx breast cancer [facility] Malignant neoplasm of overlapping sites of left breast in female, estrogen receptor positive oxyCODONE HCl 10 MG oxyCODONE HCl 10/08/2020 12:00:00 AM EST completed NETSMART ([facility]) Diphenoxylate-Atropine 2.5-0.025 MG Diphenoxylate-Atropine 0 10/07/2020 12:00:00 AM EST completed NETSMAR T ([facility]) Gabapentin 400 MG Gabapentin 10/07/2020 12:00:00 AM EST 1.0 {tab let} completed NETSMART ([facility]) B Complex B Complex 10/07/2020 12:00:00 AM EST 1.0 {tablet} completed NETSMART ([facility]) OxyCODONE HCl 5 MG OxyCODONE HCl 10/07/2020 12:00:00 AM EST completed NETSMART ([facility]) Acetaminophen Acetaminophen 10/07/2020 12:00:00 AM EST 325.0 {mg } completed NETSMART ([facility]) Vitamin D3 25 MCG Vitamin D3 10/07/2020 12:00:00 AM EST 1.0 {tab let} completed NETSMART ([facility]) Topiramate 100 MG Topiramate 10/07/2020 12:00:00 AM EST 1.0 {tab let} completed [facility]SMART ([facility]) Venlafaxine HCl ER 150 MG Venlafaxine HCl ER 10/07/2020 12:00:00 AM EST 1.0 {tablet} completed NETSMART ([facility]) One A Day Vitamin One A Day Vitamin 10/07/2020 12:00:00 AM EST 1.0 {tablet} completed NETSMART ([facility]) Methadone HCl 5 MG Methadone HCl 10/07/2020 12:00:00 AM EST 1.0 {tablet} completed NETSMART ([facility]) Ondansetron HCl 8 MG Ondansetron HCl 10/07/2020 12:00:00 AM EST completed NETSMART ([facility]) Hydrocortisone 2.5 % Hydrocortisone 10/07/2020 12:00:00 AM EST completed NETSMART ([facility]) Loperamide HCl 2 MG Loperamide HCl 10/07/2020 12:00:00 AM EST completed NETSMART ([facility]) TC-99M tilmanocept (LYMPHOSEEK) [id number] 10/02/2020 07:30:00 AM EST Intravenous completed Intravenous, Once, Wed10/02/20 at 0730, For 1 dose, Imaging Protocol [facility] Medication administered onsite iohexol (OMNIPAQUE) 300 MG/ML contrast injection 100 mL 6 09/16/2020 05:30:00 PM EST 100 mL Given by IV completed 100 mL, Given by IV, 1 TIME IMAGING, Wed09/16/20 at 1730, For 1 dose [facility] Medication administered onsite iohexol (OMNIPAQUE) 240 MG/ML contrast 20 mL [id number] 04:30:00 PM EST 20 mL Oral completed 20 mL, Oral, 1 TIME IMAGING, Wed09/16/20 at 1630, For 1 dose, Imaging Protocol
Dilute before administering
[facility] Medication administered onsite iohexol (OMNIPAQUE) 240 MG/ML contrast 20 mL [id number] 04:15:39 PM EST 20 mL Oral active 20 mL, Oral, IMG once PRN, Contrast, Starting Wed09/16/20 at 1615, For 1 day, Imaging Protocol
Dilute before administering
[facility] Medication administered onsite Diphenhydramine Hydrochloride 25 MG Oral Capsule diphenhydrAMINE (BENADRYL) capsule 25 mg diphenhydrAMINE (BENADRYL) capsule 25 mg 09/04/2020 12 :45:00 PM EST 25 mg Oral completed Malignant neoplasm of left breast in female, estrogen receptor positive, unspecified site of breast 25 mg, Oral, Once, Wed09/04/20 at 1245, For 1 dose [facility] Malignant neoplasm of left breast in [facility], estrogen receptor positive, unspecified site [...] mg from all sources in 24 hours.
[facility] Malignant neoplasm of left breast in [facility], estrogen receptor positive, unspecified site of breast Medication administered onsite pertuzumab/trastuzumab/hyaluronidase-zzx f (PHESGO) 60-60-2000 MG-MG-U/ML subcutaneous injection 10 mL [id number] 09/04/2020 12:00:00 PM EST 10 mL Subcutaneous completed Malignant neopla sm of left breast in female, estrogen receptor positive, unspecified site of breast 10 mL, S ubcutaneous, Once, Wed09/04/20 at 1200, For 1 dose
For subcutaneous use ONLY. Administer over 5 minutes. Alternate injection site between left and right thigh only.
[facility] Malignant neoplasm of left breast in fem [...] Once, Wed09/04/20 at 1200, For 1 dose [facility] Malignant neoplasm of left breast in [facility], estrogen receptor positive, unspecified site of breast Medication administered onsite Fluconazole 150 MG Oral Tablet Fluconazole 150 MG Oral Tablet (Diflucan) Fluconazole 150 MG Oral Tablet (Diflucan) 09/04/2020 12:00:00 AM EST 150 mg Oral completed Malignant neopla sm of left breast in female, estrogen receptor positive, unspecified site of breast Take 1 t ablet by mouth once for 1 dose [facility] Malignant neoplasm of left breast in fem [...] 1215, For 1 dose
Do not filter
[facility] Malignant neoplasm of left breast in fem [place], estrogen receptor positive, unspecified site of breast Medication administered onsite pertuzumab/trastuzumab/hyaluronidase-zzx f (PHESGO) 60-60-2000 MG-MG-U/ML subcutaneous injection 10 mL [id number] 08/08/2020 11:45:00 AM EST 10 mL Subcutaneous completed Malignant neopla sm of left breast in female, estrogen receptor positive, unspecified site of breast 10 mL, S ubcutaneous, Once, Yari 08/08/20 at 1145, For 1 dose
For subcutaneous use ONLY. Administer over 5 minutes. Alternate injection site between left and right thigh only.
[facility] Malignant neoplasm of left breast in fem [...] 08/08/20 a t 1145, For 1 dose [facility] Malignant neoplasm of left breast in [facility], estrogen receptor positive, unspecified site of breast Medication administered onsite dexamethasone (DECADRON) 12 mg in sodium chloride 0.9 % 50 m L IVPB 08/08/2020 11:45:00 AM EST 12 mg Intravenous completed Ma lignant neoplasm of left breast in female, estrogen receptor positive, unspecified site of breast 12 mg, Intravenous, Administer over 15 Minutes, Once, Yari 08/08/20 at 1145, For 1 dose [facility] Malignant neoplasm of left breast in fem [...] 08/08/20 at 1145 , For 1 dose [facility] Malignant neoplasm of left breast in [facility], estrogen receptor positive, unspecified site [...] INCREASE TO 2 CAPSULES DAILY IF TOLERATING [facility] PACLitaxel-protein bound (ABRAXANE) 175 mg in sodium [...] 1045, For 1 dose
Do not filter
[facility] Malignant neoplasm of left breast in [facility], estrogen receptor positive, unspecified site of breast Medication administered onsite pertuzumab/trastuzumab/hyaluronidase-zzx f (PHESGO) 60-60-2000 MG-MG-U/ML subcutaneous injection 10 mL [id number] 07/18/2020 10:45:00 AM EST 10 mL Subcutaneous completed Malignant neopla sm of left breast in female, estrogen receptor positive, unspecified site of breast 10 mL, S ubcutaneous, Once, Yari 12/10/20 at 1045, For 1 dose
For subcutaneous use ONLY. Administer over 5 minutes. Alternate injection site between left and right thigh only.
[facility] Malignant neoplasm of left breast in [facility], estrogen receptor positive, unspecified site of breast Medication administered onsite Lorazepam 0.5 MG Oral Tablet LORazepam (ATIVAN) tablet 0.5 mg LORazepam (ATIVAN) tablet 0.5 mg 07/18/2020 10:30:00 AM EST 0.5 mg Oral completed Malignant neoplasm of left breast in female, estrogen receptor positive, unspecified site of breast 0.5 mg, Oral, Once, Yari 07/18/20 at 1030 , For 1 dose [facility] Malignant neoplasm of left breast in [facility], estrogen receptor positive, unspecified [...] Yari 07/18/20 at 1030, For 1 dose [facility] Malignant neoplasm of left breast in [facility], estrogen receptor positive, unspecified site of breast Medication administered onsite ondansetron (ZOFRAN) 16 mg in sodium chloride 0.9 % 50 mL (0 .32 mg/mL) IVPB 07/18/2020 10:30:00 AM EST 16 mg Intravenous c ompleted Malignant neoplasm of left breast in female, estrogen receptor positive, unspecified site of breast 16 mg, Intravenous, Once, Yari 07/18/20 a t 1030, For 1 dose [facility] Malignant neoplasm of left breast in [facility], estrogen receptor positive, unspecified [...] 1145, For 1 dose
Do not filter
[facility] Malignant neoplasm of left breast in [facility], estrogen receptor positive, unspecified site of breast Medication administered onsite pertuzumab/trastuzumab/hyaluronidase-zzx f (PHESGO) 60-60-2000 MG-MG-U/ML subcutaneous injection 10 mL [id number] 06/27/2020 11:30:00 AM EST 10 mL Subcutaneous completed Malignant neopla sm of left breast in female, estrogen receptor positive, unspecified site of breast 10 mL, S ubcutaneous, Once, Yari 06/27/20 at 1130, For 1 dose
600mg -600mg- 20,000 units For subcutaneous use ONLY. Administer over 5 minutes. Alternate injection site between left and right thigh only.
[facility] Malignant neoplasm of left breast in [facility], estrogen receptor positive, unspecified site of breast Medication administered onsite Lorazepam 0.5 MG Oral Tablet LORazepam (ATIVAN) tablet 0.5 mg LORazepam (ATIVAN) tablet 0.5 mg 06/27/2020 11:15:00 AM EST 0.5 mg Oral completed Malignant neoplasm of left breast in female, estrogen receptor positive, unspecified site of breast 0.5 mg, Oral, Once, Yari 06/27/20 at 1115 , For 1 dose [facility] Malignant neoplasm of left breast in [facility], estrogen receptor positive, unspecified site of breast Medication administered onsite dexamethasone (DECADRON) 12 mg in sodium chloride 0.9 % 50 m L IVPB 06/27/2020 11:15:00 AM EST 12 mg Intravenous completed Ma lignant neoplasm of left breast in female, estrogen receptor positive, unspecified site of breast 12 mg, Intravenous, Administer over 15 Minutes, Once, Yari 06/27/20 at 1115, For 1 dose [facility] Malignant neoplasm of left breast in [facility], estrogen receptor positive, unspecified site of breast Medication administered onsite ondansetron (ZOFRAN) 16 mg in sodium chloride 0.9 % 50 mL (0 .32 mg/mL) IVPB 06/27/2020 11:15:00 AM EST 16 mg Intravenous c ompleted Malignant neoplasm of left breast in female, estrogen receptor positive, unspecified site of breast 16 mg, Intravenous, Once, Yari 06/27/20 a t 1115, For 1 dose [facility] Malignant neoplasm of left breast in fem [place], estrogen receptor positive, unspecified site of breast Medication administered onsite Atropine Sulfate 0.025 MG / Diphenoxylat e Hydrochloride 2.5 MG Oral Tablet Diphenoxylate-Atropine 2.5-0.025 MG Oral Tablet (Lomotil) Diphenoxylate-Atropine 2.5-0.025 MG Oral Tablet (Lomotil) 06/27/2020 12:00:00 AM EST 1 {tbl} Oral aborted Diarrhea due to drugMalignan t neoplasm of left breast in female, estrogen receptor positive, unspecified site of breast Take 1 tablet by mouth Four times daily as needed for Diarrhea, Max Daily Dose: 4 tablets [facility] Diarrhea due to drug Malignant neoplasm of left breast in fem [place], estrogen receptor positive, unspecified site of breast Loperamide Hydrochloride 2 MG Oral Table t Loperamide HCl 2 MG Oral Tablet (Imodium A-D) Loperamide HCl 2 MG Oral Tablet (Imodium A-D) 06/20/20 12:00:00 AM EST aborted Diarrhea d ue to drugMalignant neoplasm of left breast in female, estrogen receptor positive, unspecified site of breast Take 2 tablets with the first loose stool and then 1 tablet with each subsequent stool (max dose of 8 tablets per day or 16 mg total) [facility] Diarrhea due to drug Malignant neoplasm of left breast in fem [place], estrogen receptor positive, unspecified site of breast Hydrocortisone 25 MG/ML Topical Cream Hydrocortisone 2 .5 % External Cream Hydrocortisone 2.5 % External Cream 06/13/2020 12:00:00 AM EST aborted Apply to affected areas twice da papito as needed. [facility] maalox/lidocaine/diphenhydrAMINE 1:1:1 SWISH & SWAL oral terra pension 06/08/2020 12:00:00 AM EDT 10 mL Swish & Swallow aborted Swish and swallow 10 mLs every 4 (four) hours as needed Pharmacy compound: Maalox, lidocaine viscous 2 %, Benadryl 12.5 mg/5 mL [facility] PACLitaxel-protein bound (ABRAXANE) 175 mg in sodium [...] 1400, For 1 dose
Do not filter
[facility] Malignant neoplasm of left breast in [facility], estrogen receptor positive, unspecified site [...] mg/kg for loading; 6 mg/kg for maintenance
[facility] Malignant neoplasm of left breast in [facility], estrogen receptor positive, unspecified site of breast Medication administered onsite Lorazepam 0.5 MG Oral Tablet LORazepam (ATIVAN) tablet 0.5 mg LORazepam (ATIVAN) tablet 0.5 mg 06/06/2020 11:00:00 AM EDT 0.5 mg Oral completed Malignant neoplasm of left breast in female, estrogen receptor positive, unspecified site of breast 0.5 mg, Oral, Once, Yari 06/06/20 at 1100 , For 1 dose [facility] Malignant neoplasm of left breast in [facility], estrogen receptor positive, unspecified site of breast Medication administered onsite Pertuzumab (PERJETA) 840 mg in sodium chloride 0.9 % 250 mL infusion 06/06/2020 11:00:00 AM EDT 840 mg Intravenous c ompleted Malignant neoplasm of left breast in female, estrogen receptor positive, unspecified site of breast 840 mg, Intravenous, Adminis ter over 60 Minutes, Once, Yari 06/06/20 at 1100, For 1 dose [facility] Malignant neoplasm of left breast in [facility], estrogen receptor positive, unspecified site of breast Medication administered onsite dexamethasone (DECADRON) 12 mg in sodium chloride 0.9 % 50 m L IVPB 06/06/2020 10:45:00 AM EDT 12 mg Intravenous completed Ma lignant neoplasm of left breast in female, estrogen receptor positive, unspecified site of breast 12 mg, Intravenous, Administer over 15 Minutes, Once, Yari 06/06/20 at 1045, For 1 dose [facility] Malignant neoplasm of left breast in [facility], estrogen receptor positive, unspecified site [...] mg from all sources in 24 hours.
[facility] Malignant neoplasm of left breast in fem [...] 06/06/20 a t 1045, For 1 dose [facility] Malignant neoplasm of left breast in [facility], estrogen receptor positive, unspecified site [...] hours as needed for Nausea or Vomiting [facility] Malignant neoplasm of left breast in [facility], estrogen receptor positive, unspecified site of breast Methadone Hydrochloride 5 MG Oral Tablet Methadone HCl 5 MG Oral Tablet (DOLOPHINE) Methadone HCl 5 MG Oral Tablet (DOLOPHINE) 06/01/2020 12:00:00 AM EDT aborted TAKE ONE TABLET BY MOUTH THREE TIMES A DAY FOR CANCER PAIN MAXIMUM DAILY DOSE THREE TABLETS [facility] Nicotine 2 MG Oral Lozenge Nicotine Abad crilex 2 MG Mouth/Throat Lozenge (Nicorette) Nicotine Polacrilex 2 MG Mouth/Throat Lozenge (Nicoret te) 05/15/2020 12:00:00 AM EDT [address] 1 lozenge inside cheek as needed for Smoking cessation [facility] 24 HR Nicotine 0.875 MG/HR Transdermal P atch Nicotine 21 MG/24HR Transdermal Patch 24 Hour (NICODERM CQ) Nicotine 21 MG/24HR Transdermal Patch 24 Hour (NICODERM CQ) 05/15/2020 12:00:00 AM EDT 1 {patch} Transdermal aborted Place 1 patch onto the skin every 24 (twenty-four) nu [facility] gabapentin 400 MG Oral Capsule Gabapentin 400 MG Oral Capsule (NEURONTIN) Gabapentin 400 MG Oral Capsule (NEURONTIN) 05/10/2020 12:00:00 AM EDT aborted [facility] B Complex Oral Capsule [id number] 05/10/2020 12:00:00 AM EDT aborted [facility] duloxetine 30 MG Delayed Release Oral Ca psule DULoxetine HCl 30 MG Oral Capsule Delayed Release Particles (CYMBALTA) DULoxetine HCl 30 MG Oral Capsule Delaye d Release Particles (CYMBALTA) 04/24/2020 12:00:00 AM EDT aborted [facility] Loratadine 10 MG Oral Tablet Loratadine 10 MG Oral Tab let (CLARITIN) Loratadine 10 MG Oral Tablet (CLARITIN) 04/11/2020 12:00:00 AM EDT 10 mg Oral aborted Take 10 mg by mouth daily [facility] Acyclovir 400 MG Oral Tablet Acyclovir 400 MG Oral Tab let (ZOVIRAX) Acyclovir 400 MG Oral Tablet (ZOVIRAX) 04/03/2020 12:00:00 AM EDT aborted [facility] pregabalin 100 MG Oral Capsule Pregabalin 100 MG Oral Capsule (LYRICA) Pregabalin 100 MG Oral Capsule (LYRICA) 04/03/2020 12:00:00 AM EDT aborted TAKE ONE CAPSULE BY MOUTH THREE TIMES A DAY MAXIMUM DAILY DOSE 3 [facility] Hydroxyzine Hydrochloride 25 MG Oral Tab let hydrOXYzine HCl 25 MG Oral Tablet (ATARAX) hydrOXYzine HCl 25 MG Oral Tablet (ATARAX) 04/01/2020 12:00: 00 AM EDT aborted [facility] 24 HR venlafaxine 37.5 MG Extended Relea se Oral Capsule Venlafaxine HCl ER 37.5 MG Oral Capsule Extended Release 24 Hour (EFFEXOR-XR) Venlafaxine HCl ER 37.5 MG Oral Capsule Extended Release 24 Hour (EFFEXOR-XR) 04/01/2020 12:00:00 AM EDT aborted [facility] Naproxen 500 MG Oral Tablet Naproxen 500 MG Oral Table t (NAPROSYN) Naproxen 500 MG Oral Tablet (NAPROSYN) 03/25/2020 12:00:00 AM EDT 500 mg Oral aborted Take 500 mg by mouth Two Times Daily [facility] Ondansetron 8 MG Oral Tablet Ondansetron HCl 8 MG Oral Tablet (ZOFRAN) Ondansetron HCl 8 MG Oral Tablet (ZOFRAN) 03/14/2020 12:00:00 AM EDT 8 mg Oral aborted Take 8 mg by mouth T hree times daily [facility] Oxybutynin chloride 5 MG Oral Tablet Oxy butynin Chloride 5 MG Oral Tablet (DITROPAN) Oxybutynin Chloride 5 MG Oral Tablet (DITROPAN) 2019 12:00:00 AM EDT 5 mg Oral aborted Take 5 mg by angie th Two Times Daily [facility] Cholecalciferol 1000 UNT Oral Tablet Vitamin D 25 MCG (1000 UT) Oral Tablet Vitamin D 25 MCG (1000 UT) Oral Tablet 02/28/2020 12:00:00 AM EDT 1 {tbl} Oral aborted Take 1 tablet by angie th daily [facility] Baclofen 10 MG Oral Tablet Baclofen 10 MG Oral Tablet (LIORESAL) Baclofen 10 MG Oral Tablet (LIORESAL) 02/26/2020 12:00:00 AM EDT aborted TAKE ONE HALF TABLET BY MOUTH THREE TIMES A DAY FOR 5 DAYS THEN 1 TABLET WITH FOOD OR MILK THREE TIMES A DAY [facility] Nicotine 2 MG Chewing Gum nicotine (abad crilex) [address] ONE LOZENGE INSIDE CHEEK NEEDED FOR SMOKING CESSATION nicotine (polacrilex) [address] ONE LOZENGE INSIDE CHEEK NEEDED FOR SMOKING CESSATION completed nicotine 2 MG Chewing Gum REZA ([facility]) topiramate 50 MG Oral Tablet topiramate 50 mg tablet topiramate 50 mg tablet completed topiramate 50 MG Oral Tablet REZA ([facility]) Acyclovir 400 MG Oral Tablet acyclovir 400 mg tablet acyclovir 4 00 mg tablet completed acyclovir 400 MG Oral Tablet [place] FERIA ([facility]) pregabalin 100 MG Oral Capsule pregabali n 100 mg capsule TAKE ONE CAPSULE BY MOUTH THREE TIMES A DAY MAXIMUM DAILY DOSE 3 pregabalin 100 mg capsule TAKE ONE CAPSULE BY MOUTH THREE TIMES A DAY MAXIMUM DAILY DOSE 3 completed pregabalin 100 MG Oral Capsule A THEN ([facility]) Levothyroxine Sodium 0.025 MG Oral Tablet levothyroxin e 25 mcg tablet levothyroxine 25 mcg tablet completed levothyroxine sodium 0.025 MG Oral Tablet [place] ([facility]) tolterodine tartrate 2 MG Oral Tablet tolterodine 2 mg tablet tolterodine 2 mg tablet completed tolterodine tar trate 2 MG Oral Tablet [place] ([facility]) Hydrocortisone 25 MG/ML Topical Cream hy drocortisone 2.5 % topical cream APPLY TO AFFECTED AREA S TWO TIMES A DAY NEEDED hydrocortisone 2.5 % topical cream APPLY TO AFFECTED AREA S TWO TIMES A DAY NEEDED completed hydrocortisone 25 MG/ML Topical Cream [place] ([facility]) Naproxen 250 MG Oral Tablet naproxen 250 mg tablet TAKE ONE TABLET BY MOUTH TWICE A DAY NEEDED FOR PAIN naproxen 250 mg tablet TAKE ONE TABLET B Y MOUTH TWICE A DAY NEEDED FOR PAIN complet ed naproxen 250 MG Oral Tablet [place] ([facility]) Baclofen 10 MG Oral Tablet baclofen 10 mg tablet baclofen 10 mg tablet completed baclofen 10 MG Oral Table t [place] ([facility]) Hydroxyzine Hydrochloride 25 MG Oral Tab let hydroxyzine HCl 25 mg tablet TAKE ONE TABLET BY MOUTH THREE TIMES A DAY NEEDED FOR ANXIETY hydroxyzine HCl 25 mg tablet TAKE ONE TABLET BY MOUTH THREE TIMES A DAY NEEDED FOR ANXIETY completed hydroxyzine hydrochlor victoriano 25 MG Oral Tablet [place] ([facility]) duloxetine 60 MG Delayed Release Oral Ca psule duloxetine 60 mg capsule,delayed release duloxetine 60 mg capsule,delayed release completed duloxetine 60 MG Delayed Release Oral Capsule [place] ([facility]) Hydroxyzine Hydrochloride 25 MG Oral Tab let hydroxyzine HCl 25 mg tablet TAKE ONE TABLET BY MOUTH THREE TIMES A DAY NEEDED FOR ANXIETY hydroxyzine HCl 25 mg tablet TAKE ONE TABLET BY MOUTH THREE TIMES A DAY NEEDED FOR ANXIETY completed hydroxyzine hydrochlor victoriano 25 MG Oral Tablet [facility] ([facility]) Fluconazole 100 MG Oral Tablet fluconazo le 100 mg tablet TAKE ONE TABLET BY MOUTH EVERY DAY FOR YEAST INFECTION fluconazole 100 mg tablet TAKE ONE TABLE T BY MOUTH EVERY DAY FOR YEAST INFECTION co mpleted fluconazole 100 MG Oral Tablet [place] ([facility]) cetirizine hydrochloride 10 MG Oral Tablet cetirizine 10 mg tablet cetirizine 10 mg tablet completed cetirizine h ydrochloride 10 MG Oral Tablet [place] ([facility]) Naproxen 500 MG Oral Tablet naproxen 500 mg tablet TAKE ONE TABLET BY MOUTH TWO TIMES A DAY naproxen 500 mg tablet TAKE ONE TABLET BY MOUTH TWO TIMES A DAY completed naproxen 500 MG Oral T ablet [facility] ([facility]) Lorazepam 0.5 MG Oral Tablet lorazepam 0.5 mg tablet lorazepam 0 .5 mg tablet completed lorazepam 0.5 MG Oral Tablet [place] ([facility]) cetirizine hydrochloride 10 MG Oral Tablet cetirizine 10 mg tablet cetirizine 10 mg tablet completed cetirizine h ydrochloride 10 MG Oral Tablet [place] ([facility]) Ketorolac Tromethamine 10 MG Oral Tablet ketorolac 10 mg tablet ketorolac 10 mg tablet completed ketorolac trome thamine 10 MG Oral Tablet [facility] ([facility]) Nystatin 974424 UNT/ML Oral Suspension n ystatin 100,000 unit/mL oral suspension TAKE 5 ML BY MOUTH FOUR TIMES A DAY FOR 10 DAYS nystatin 100,000 unit/mL oral suspension TAKE 5 ML BY MOUTH FOUR TIMES A DAY FOR 10 DAYS completed nystatin [id number] UNT/ML Oral Susp ension [facility] ([facility]) Phenazopyridine hydrochloride 200 MG Ora l Tablet phenazopyridine 200 mg tablet TAKE ONE TABLET BY MOUTH THREE TIMES A DAY FOR 2 DAYS phenazopyridine 200 mg tablet TAKE ONE TABLET BY MOUTH THREE TIMES A DAY FOR 2 DAYS completed phenazopyridine hydrochloride 20 0 MG Oral Tablet [place] ([facility]) Acyclovir 400 MG Oral Tablet acyclovir 400 mg tablet acyclovir 4 00 mg tablet completed acyclovir 400 MG Oral Tablet [place] ([facility]) Fluconazole 100 MG Oral Tablet fluconazo le 100 mg tablet TAKE ONE TABLET BY MOUTH EVERY DAY FOR YEAST INFECTION fluconazole 100 mg tablet TAKE ONE TABLE T BY MOUTH EVERY DAY FOR YEAST INFECTION co mpleted fluconazole 100 MG Oral Tablet [place] ([facility]) 24 HR Nicotine 0.875 MG/HR Transdermal P atch nicotine 21 mg/24 hr daily transdermal patch PLACE 1 PATCH ONTO THE SKIN EVERY 24 HOURS nicotine 21 mg/24 hr daily transdermal patch [address]ACE 1 PATCH ONTO THE SKIN EVERY 24 HOURS completed 24 HR nicotine 0.875 MG/HR T ransdermal System [place] ([facility]) pregabalin 100 MG Oral Capsule pregabali n 100 mg capsule TAKE ONE CAPSULE BY MOUTH THREE TIMES A DAY MAXIMUM DAILY DOSE 3 pregabalin 100 mg capsule TAKE ONE CAPSULE BY MOUTH THREE TIMES A DAY MAXIMUM DAILY DOSE 3 completed pregabalin 100 MG Oral Capsule [facility] ([facility]) Naproxen 500 MG Oral Tablet naproxen 500 mg tablet TAKE ONE TABLET BY MOUTH TWO TIMES A DAY naproxen 500 mg tablet TAKE ONE TABLET BY MOUTH TWO TIMES A DAY completed naproxen 500 MG Oral T ablet [place] ([facility]) tolterodine tartrate 2 MG Oral Tablet tolterodine 2 mg tablet tolterodine 2 mg tablet completed tolterodine tar trate 2 MG Oral Tablet [place] ([facility]) topiramate 50 MG Oral Tablet topiramate 50 mg tablet topiramate 50 mg tablet completed topiramate 50 MG Oral Tablet [place] ([facility]) Ciprofloxacin 500 MG Oral Tablet ciprofloxacin 500 mg tablet ciprofloxacin 500 mg tablet completed ciprofloxaci n 500 MG Oral Tablet [place] ([facility]) Ciprofloxacin 500 MG Oral Tablet ciprofloxacin 500 mg tablet ciprofloxacin 500 mg tablet completed ciprofloxaci n 500 MG Oral Tablet [place] ([facility]) Hydroxyzine Hydrochloride 25 MG Oral Tab let hydroxyzine HCl 25 mg tablet TAKE ONE TABLET BY MOUTH THREE TIMES A DAY NEEDED FOR ANXIETY hydroxyzine HCl 25 mg tablet TAKE ONE TABLET BY MOUTH THREE TIMES A DAY NEEDED FOR ANXIETY completed hydroxyzine hydrochlor victoriano 25 MG Oral Tablet [facility] ([facility]) Lidocaine 25 MG/ML / Prilocaine 25 MG/ML Topical Cream lidocaine-prilocaine 2.5 %-2.5 % topical cream lidocaine-prilocaine 2.5 %-2.5 % topical cream completed lidocaine 25 MG/ML / priloca ine 25 MG/ML Topical Cream [place] ([facility]) pregabalin 75 MG Oral Capsule pregabalin 75 mg capsule TAKE ONE CAPSULE BY MOUTH TWICE A DAY MAXIMUM DAILY DOSE 2 pregabalin 75 mg capsule TAKE ONE CAPSUL E BY MOUTH TWICE A DAY MAXIMUM DAILY DOSE 2 completed pregabalin 75 MG Oral Capsule [place] ([facility]) Nystatin 100 UNT/MG Topical Powder nysta tin 100,000 unit/gram topical powder APPLY TOPICALLY TWO TIMES A DAY TO AFFECTED AREAS nystatin 100,000 unit/gram topical powder APPLY TOPICALLY TWO TIMES A DAY TO AFFECTED AREAS completed nystatin 100 UNT/MG Topical Powd er [place] ([facility]) pregabalin 75 MG Oral Capsule pregabalin 75 mg capsule TAKE ONE CAPSULE BY MOUTH TWICE A DAY MAXIMUM DAILY DOSE 2 pregabalin 75 mg capsule TAKE ONE CAPSUL E BY MOUTH TWICE A DAY MAXIMUM DAILY DOSE 2 completed pregabalin 75 MG Oral Capsule [place] ([facility]) 24 HR Nicotine 0.875 MG/HR Transdermal P atch nicotine 21 mg/24 hr daily transdermal patch PLACE 1 PATCH ONTO THE SKIN EVERY 24 HOURS nicotine 21 mg/24 hr daily transdermal patch PLACE 1 PATCH ONTO THE SKIN EVERY 24 HOURS completed 24 HR nicotine 0.875 MG/HR T ransdermal System [facility] ([facility]) Lidocaine 25 MG/ML / Prilocaine 25 MG/ML Topical Cream lidocaine-prilocaine 2.5 %-2.5 % topical cream lidocaine-prilocaine 2.5 %-2.5 % topical cream completed lidocaine 25 MG/ML / priloca ine 25 MG/ML Topical Cream [place] ([facility]) Baclofen 10 MG Oral Tablet baclofen 10 mg tablet baclofen 10 mg tablet completed baclofen 10 MG Oral Table t [place] ([facility]) Levothyroxine Sodium 0.025 MG Oral Tablet levothyroxin e 25 mcg tablet levothyroxine 25 mcg tablet completed levothyroxine sodium 0.025 MG Oral Tablet [facility] ([facility]) Phenazopyridine hydrochloride 200 MG Ora l Tablet phenazopyridine 200 mg tablet TAKE ONE TABLET BY MOUTH THREE TIMES A DAY FOR 2 DAYS phenazopyridine 200 mg tablet TAKE ONE TABLET BY MOUTH THREE TIMES A DAY FOR 2 DAYS completed phenazopyridine hydrochloride 20 0 MG Oral Tablet [facility] ([facility]) Ketorolac Tromethamine 10 MG Oral Tablet ketorolac 10 mg tablet ketorolac 10 mg tablet completed ketorolac trome thamine 10 MG Oral Tablet [facility] ([facility]) Loratadine 10 MG Oral Tablet loratadine 10 mg tablet loratadine 10 mg tablet completed loratadine 10 MG Oral Tablet [facility] ([facility]) topiramate 50 MG Oral Tablet topiramate 50 mg tablet topiramate 50 mg tablet completed topiramate 50 MG Oral Tablet [facility] ([facility]) Loratadine 10 MG Oral Tablet loratadine 10 mg tablet loratadine 10 mg tablet completed loratadine 10 MG Oral Tablet [facility] ([facility]) Hydrocortisone 25 MG/ML Topical Cream hy drocortisone 2.5 % topical cream APPLY TO AFFECTED AREA S TWO TIMES A DAY NEEDED hydrocortisone 2.5 % topical cream APPLY TO AFFECTED AREA S TWO TIMES A DAY NEEDED completed hydrocortisone 25 MG/ML Topical Cream [place] ([facility]) Amitriptyline Hydrochloride 25 MG Oral T ablet amitriptyline 25 mg tablet TAKE ONE TABLET BY MOUTH ONCE DAILY IN THE EVENING amitriptyline 25 mg tablet TAKE ONE TABLET BY MOUTH ONCE DAILY IN THE EVENING completed amitriptyline hydrochloride 25 MG Oral Tablet [facility] ([facility]) Ciprofloxacin 500 MG Oral Tablet ciprofloxacin 500 mg tablet ciprofloxacin 500 mg tablet completed ciprofloxaci n 500 MG Oral Tablet [facility] ([facility]) Sulfamethoxazole 800 MG / Trimethoprim 1 60 MG Oral Tablet sulfamethoxazole 800 mg-trimethoprim 160 mg tablet TAKE ONE TABLET BY MOUTH TWO TIMES PER DAY FOR 7 DAYS sulfamethoxazole 800 mg-trimethoprim 160 mg tablet TAKE ONE TABLET BY MOUTH TWO TIMES PER DAY FOR 7 DAYS completed sulfamethoxazole 800 MG / trimethoprim 160 MG Oral Tablet [facility] ([facility]) Potassium 99 MG Oral Tablet [id number] Oral aborted Take by mouth [facility] Ciprofloxacin 500 MG Oral Tablet ciprofloxacin 500 mg tablet ciprofloxacin 500 mg tablet completed ciprofloxaci n 500 MG Oral Tablet [facility] ([facility]) duloxetine 30 MG Delayed Release Oral Ca psule duloxetine 30 mg capsule,delayed release duloxetine 30 mg capsule,delayed release completed duloxetine 30 MG Delayed Release Oral Capsule [facility] ([facility]) Nystatin [id number] UNT/ML Oral Suspension n ystatin 100,000 unit/mL oral suspension TAKE 5 ML BY MOUTH FOUR TIMES A DAY FOR 10 DAYS nystatin 100,000 unit/mL oral suspension TAKE 5 ML BY MOUTH FOUR TIMES A DAY FOR 10 DAYS completed nystatin [id number] UNT/ML Oral Susp ension [facility] ([facility]) Baclofen 10 MG Oral Tablet baclofen 10 mg tablet baclofen 10 mg tablet completed baclofen 10 MG Oral Table t [facility] ([facility]) Naproxen sodium 220 MG Oral Tablet naproxen sodium 220 mg tablet naproxen sodium 220 mg tablet completed naproxen sodium 220 MG Oral Tablet [facility] ([facility]) Ketorolac Tromethamine 10 MG Oral Tablet ketorolac 10 mg tablet ketorolac 10 mg tablet completed ketorolac trome thamine 10 MG Oral Tablet [facility] ([facility]) Naproxen sodium 220 MG Oral Tablet naproxen sodium 220 mg tablet naproxen sodium 220 mg tablet completed naproxen sodium 220 MG Oral Tablet [facility] ([facility]) vitamin d3 25 mcg (1000 ut) tabs completed vitamin d3 25 mcg (1000 ut) tabs [facility] ([facility]) Amitriptyline Hydrochloride 25 MG Oral T ablet amitriptyline 25 mg tablet TAKE ONE TABLET BY MOUTH ONCE DAILY IN THE EVENING amitriptyline 25 mg tablet TAKE ONE TABLET BY MOUTH ONCE DAILY IN THE EVENING completed amitriptyline hydrochloride 25 MG Oral Tablet [facility] ([facility]) Ondansetron 8 MG Oral Tablet ondansetron HCl 8 mg tablet TAKE 1 TABLET BY MOUTH EVERY 8 HOURS NEEDED FOR FOR NAUSEA AND VOMITING ondansetron HCl 8 mg tablet TAKE 1 TABLET BY MOUTH EVERY 8 HOURS NEEDED FOR FOR NAUSEA AND VOMITING completed ondansetron 8 MG Oral Tablet [facility] ([facility]) Oxybutynin chloride 5 MG Oral Tablet oxy butynin chloride 5 mg tablet TAKE ONE TABLET BY MOUTH TWICE A DAY oxybutynin chloride 5 mg tablet TAKE ONE TABLET BY MOUTH TWICE A DAY completed oxybutynin chloride 5 MG Oral Tablet [place] ([facility]) Nicotine 2 MG Chewing Gum nicotine (abad crilex) [address] ONE LOZENGE INSIDE CHEEK NEEDED FOR SMOKING CESSATION nicotine (polacrilex) [address] ONE [place]ZENGE INSIDE CHEEK NEEDED FOR SMOKING CESSATION completed nicotine 2 MG Chewing Gum [place] ([facility]) Ciprofloxacin 500 MG Oral Tablet ciprofloxacin 500 mg tablet ciprofloxacin 500 mg tablet completed ciprofloxaci n 500 MG Oral Tablet [place] ([facility]) Baclofen 10 MG Oral Tablet baclofen 10 mg tablet baclofen 10 mg tablet completed baclofen 10 MG Oral Table t [place] ([facility]) Sulfamethoxazole 800 MG / Trimethoprim 1 60 MG Oral Tablet sulfamethoxazole 800 mg-trimethoprim 160 mg tablet TAKE ONE TABLET BY MOUTH TWO TIMES PER DAY FOR 7 DAYS sulfamethoxazole 800 mg-trimethoprim 160 mg tablet TAKE ONE TABLET BY MOUTH TWO TIMES PER DAY FOR 7 DAYS completed sulfamethoxazole 800 MG / trimethoprim 160 MG Oral Tablet [place] ([facility]) Hydrocortisone 25 MG/ML Topical Cream [P roctozone HC] Proctozone-HC 2.5 % topical cream perineal applicator Proctozone-HC 2.5 % topical cream perine al applicator completed hyd rocortisone 25 MG/ML Topical Cream [Proctozone HC] [place] ([facility]) Amitriptyline Hydrochloride 25 MG Oral T ablet amitriptyline 25 mg tablet TAKE ONE TABLET BY MOUTH ONCE DAILY IN THE EVENING amitriptyline 25 mg tablet TAKE ONE TABLET BY MOUTH ONCE DAILY IN THE EVENING completed amitriptyline hydrochloride 25 MG Oral Tablet [place] ([facility]) pregabalin 75 MG Oral Capsule pregabalin 75 mg capsule TAKE ONE CAPSULE BY MOUTH TWICE A DAY MAXIMUM DAILY DOSE 2 pregabalin 75 mg capsule TAKE ONE CAPSUL E BY MOUTH TWICE A DAY MAXIMUM DAILY DOSE 2 completed pregabalin 75 MG Oral Capsule [place] ([facility]) pregabalin 75 MG Oral Capsule pregabalin 75 mg capsule TAKE ONE CAPSULE BY MOUTH TWICE A DAY MAXIMUM DAILY DOSE 2 pregabalin 75 mg capsule TAKE ONE CAPSUL E BY MOUTH TWICE A DAY MAXIMUM DAILY DOSE 2 completed pregabalin 75 MG Oral Capsule [facility] ([facility]) Ciprofloxacin 500 MG Oral Tablet ciprofloxacin 500 mg tablet ciprofloxacin 500 mg tablet completed ciprofloxaci n 500 MG Oral Tablet [facility] ([facility]) topiramate 25 MG Oral Tablet topiramate 25 mg tablet topiramate 25 mg tablet completed topiramate 25 MG Oral Tablet [facility] ([facility]) TRAZODONE HCL PO Oral aborted Take by mouth [facility] pregabalin 100 MG Oral Capsule pregabali n 100 mg capsule TAKE ONE CAPSULE BY MOUTH THREE TIMES A DAY MAXIMUM DAILY DOSE 3 pregabalin 100 mg capsule TAKE ONE CAPSULE BY MOUTH THREE TIMES A DAY MAXIMUM DAILY DOSE 3 completed pregabalin 100 MG Oral Capsule [facility] ([facility]) Ketorolac Tromethamine 10 MG Oral Tablet ketorolac 10 mg tablet ketorolac 10 mg tablet completed ketorolac trome thamine 10 MG Oral Tablet [facility] ([facility]) Ketorolac Tromethamine 10 MG Oral Tablet ketorolac 10 mg tablet ketorolac 10 mg tablet completed ketorolac trome thamine 10 MG Oral Tablet [facility] ([facility]) Oxycodone Hydrochloride 5 MG Oral Tablet oxycodone 5 m g tablet oxycodone 5 mg tablet completed oxycodone hydro chloride 5 MG Oral Tablet [place] ([facility]) 24 HR venlafaxine 37.5 [...] MG Extended Release Oral Capsule [Effexor] [facility] ([facility]) Ketorolac Tromethamine 10 MG Oral Tablet ketorolac 10 mg tablet ketorolac 10 mg tablet completed ketorolac trome thamine 10 MG Oral Tablet [facility] ([facility]) Sulfamethoxazole 800 MG / Trimethoprim 1 60 MG Oral Tablet sulfamethoxazole 800 mg-trimethoprim 160 mg tablet TAKE ONE TABLET BY MOUTH TWO TIMES PER DAY FOR 7 DAYS sulfamethoxazole 800 mg-trimethoprim 160 mg tablet TAKE ONE TABLET BY MOUTH TWO TIMES PER DAY FOR 7 DAYS complete d sulfamethoxazole 800 MG / trimethoprim 160 MG Oral Tablet [facility] ([facility]) Naproxen 250 MG Oral Tablet naproxen 250 mg tablet TAKE ONE TABLET BY MOUTH TWICE A DAY NEEDED FOR PAIN naproxen 250 mg tablet TAKE ONE TABLET B Y MOUTH TWICE A DAY NEEDED FOR PAIN complet ed naproxen 250 MG Oral Tablet [facility] ([facility]) 24 HR Nicotine 0.875 MG/HR Transdermal P atch nicotine 21 mg/24 hr daily transdermal patch [address]ACE 1 PATCH ONTO THE SKIN EVERY 24 HOURS nicotine 21 mg/24 hr daily transdermal patch PLACE 1 PATCH ONTO THE SKIN EVERY 24 HOURS completed 24 HR nicotine 0.875 MG/HR T ransdermal System [place] ([facility]) Ciprofloxacin 500 MG Oral Tablet ciprofloxacin 500 mg tablet ciprofloxacin 500 mg tablet completed ciprofloxaci n 500 MG Oral Tablet [place] ([facility]) Loratadine 10 MG Oral Tablet loratadine 10 mg tablet loratadine 10 mg tablet completed loratadine 10 MG Oral Tablet [place] ([facility]) Cephalexin 500 MG Oral Capsule cephalexi n 500 mg capsule TAKE ONE CAPSULE BY MOUTH TWICE A DAY FOR 10 DAYS cephalexin 500 mg capsule TAKE ONE CAPSU LE BY MOUTH TWICE A DAY FOR 10 DAYS complete d cephalexin 500 MG Oral Capsule [place] ([facility]) Naproxen 250 MG Oral Tablet naproxen 250 mg tablet TAKE ONE TABLET BY MOUTH TWICE A DAY NEEDED FOR PAIN naproxen 250 mg tablet TAKE ONE TABLET B Y MOUTH TWICE A DAY NEEDED FOR PAIN complet ed naproxen 250 MG Oral Tablet [facility] ([facility]) tolterodine tartrate 2 MG Oral Tablet tolterodine 2 mg tablet tolterodine 2 mg tablet completed tolterodine tar trate 2 MG Oral Tablet [place] ([facility]) topiramate 50 MG Oral Tablet topiramate 50 mg tablet topiramate 50 mg tablet completed topiramate 50 MG Oral Tablet [place] ([facility]) pregabalin 100 MG Oral Capsule pregabali n 100 mg capsule TAKE ONE CAPSULE BY MOUTH THREE TIMES A DAY MAXIMUM DAILY DOSE 3 pregabalin 100 mg capsule TAKE ONE CAPSULE BY MOUTH THREE TIMES A DAY MAXIMUM DAILY DOSE 3 completed pregabalin 100 MG Oral Capsule [place] ([facility]) Naproxen 250 MG Oral Tablet naproxen 250 mg tablet TAKE ONE TABLET BY MOUTH TWICE A DAY NEEDED FOR PAIN naproxen 250 mg tablet TAKE ONE TABLET B Y MOUTH TWICE A DAY NEEDED FOR PAIN complet ed naproxen 250 MG Oral Tablet [facility] ([facility]) Hydrocortisone 25 MG/ML Topical Cream hy drocortisone 2.5 % topical cream APPLY TO AFFECTED AREA S TWO TIMES A DAY NEEDED hydrocortisone 2.5 % topical cream APPLY TO AFFECTED AREA S TWO TIMES A DAY NEEDED completed hydrocortisone 25 MG/ML Topical Cream [facility] ([facility]) Hydrocortisone 25 MG/ML Topical Cream [P roctozone HC] Proctozone-HC 2.5 % topical cream perineal applicator Proctozone-HC 2.5 % topical cream perine al applicator completed hyd rocortisone 25 MG/ML Topical Cream [Proctozone HC] [facility] ([facility]) Sulfamethoxazole 800 MG / Trimethoprim 1 60 MG Oral Tablet sulfamethoxazole 800 mg-trimethoprim 160 mg tablet TAKE ONE TABLET BY MOUTH TWO TIMES PER DAY FOR 7 DAYS sulfamethoxazole 800 mg-trimethoprim 160 mg tablet TAKE ONE TABLET BY MOUTH TWO TIMES PER DAY FOR 7 DAYS completed sulfamethoxazole 800 MG / trimethoprim 160 MG Oral Tablet [facility] ([facility]) pregabalin 100 MG Oral Capsule pregabali n 100 mg capsule TAKE ONE CAPSULE BY MOUTH THREE TIMES A DAY MAXIMUM DAILY DOSE 3 pregabalin 100 mg capsule TAKE ONE CAPSULE BY MOUTH THREE TIMES A DAY MAXIMUM DAILY DOSE 3 completed pregabalin 100 MG Oral Capsule [facility] ([facility]) Levothyroxine Sodium 0.025 MG Oral Tablet levothyroxin e 25 mcg tablet levothyroxine 25 mcg tablet completed levothyroxine sodium 0.025 MG Oral Tablet [facility] ([facility]) Lidocaine Hydrochloride 20 MG/ML Mucous Membrane Topical Solution Lidocaine Viscous 2 % mucosal solution Lidocaine Viscous 2 % mucosal solution completed lidocaine hydrochloride 20 MG/ML Mucous Membrane Topical Solution [facility] ([facility]) Cholecalciferol 1000 UNT Oral Tablet cho lecalciferol (vitamin D3) 25 mcg (1,000 unit) tablet cholecalciferol (vitamin D3) 25 mcg (1,000 unit) tablet completed cholecalciferol 0.025 MG Ora l Tablet [facility] ([facility]) Levothyroxine Sodium 0.025 MG Oral Tablet levothyroxin e 25 mcg tablet levothyroxine 25 mcg tablet completed levothyroxine sodium 0.025 MG Oral Tablet [facility] ([facility]) cetirizine hydrochloride 10 MG Oral Tablet cetirizine 10 mg tablet cetirizine 10 mg tablet completed cetirizine h ydrochloride 10 MG Oral Tablet [facility] ([facility]) pregabalin 100 MG Oral Capsule pregabali n 100 mg capsule TAKE ONE CAPSULE BY MOUTH THREE TIMES A DAY MAXIMUM DAILY DOSE 3 pregabalin 100 mg capsule TAKE ONE CAPSULE BY MOUTH THREE TIMES A DAY MAXIMUM DAILY DOSE 3 completed pregabalin 100 MG Oral Capsule [facility] ([facility]) Amitriptyline Hydrochloride 25 MG Oral T ablet amitriptyline 25 mg tablet TAKE ONE TABLET BY MOUTH ONCE DAILY IN THE EVENING amitriptyline 25 mg tablet TAKE ONE TABLET BY MOUTH ONCE DAILY IN THE EVENING completed amitriptyline hydrochloride 25 MG Oral Tablet [facility] ([facility]) topiramate 25 MG Oral Tablet topiramate 25 mg tablet topiramate 25 mg tablet completed topiramate 25 MG Oral Tablet [facility] ([facility]) Nicotine 2 MG Chewing Gum nicotine (abad crilex) [address] ONE LOZENGE INSIDE CHEEK NEEDED FOR SMOKING CESSATION nicotine (polacrilex) [address] ONE [place]ZENGE INSIDE CHEEK NEEDED FOR SMOKING CESSATION completed nicotine 2 MG Chewing Gum [facility] ([facility]) cetirizine hydrochloride 10 MG Oral Tablet cetirizine 10 mg tablet cetirizine 10 mg tablet completed cetirizine h ydrochloride 10 MG Oral Tablet [facility] ([facility]) Atropine Sulfate 0.025 MG / [...] diphenoxylate hydrochloride 2.5 MG Oral Tablet [facility] ([facility]) topiramate 25 MG Oral Tablet topiramate 25 mg tablet topiramate 25 mg tablet completed topiramate 25 MG Oral Tablet [place] ([facility]) cetirizine hydrochloride 10 MG Oral Tablet cetirizine 10 mg tablet cetirizine 10 mg tablet completed cetirizine h ydrochloride 10 MG Oral Tablet [place] ([facility]) Acyclovir 400 MG Oral Tablet acyclovir 400 mg tablet acyclovir 4 00 mg tablet completed acyclovir 400 MG Oral Tablet [place] ([facility]) Lidocaine 25 MG/ML / Prilocaine 25 MG/ML Topical Cream lidocaine-prilocaine 2.5 %-2.5 % topical cream lidocaine-prilocaine 2.5 %-2.5 % topical cream completed lidocaine 25 MG/ML / priloca ine 25 MG/ML Topical Cream [place] ([facility]) pregabalin 75 MG Oral Capsule pregabalin 75 mg capsule TAKE ONE CAPSULE BY MOUTH TWICE A DAY MAXIMUM DAILY DOSE 2 pregabalin 75 mg capsule TAKE ONE CAPSUL E BY MOUTH TWICE A DAY MAXIMUM DAILY DOSE 2 completed pregabalin 75 MG Oral Capsule [place] ([facility]) vitamin d3 25 mcg (1000 ut) tabs completed vitamin d3 25 mcg (1000 ut) tabs [place] ([facility]) Acyclovir 400 MG Oral Tablet acyclovir 400 mg tablet acyclovir 4 00 mg tablet completed acyclovir 400 MG Oral Tablet [place] ([facility]) Amoxicillin 875 MG / Clavulanate 125 MG Oral Tablet amoxicillin 875 mg-potassium clavulanate 125 mg tablet amoxicillin 875 mg-potassium clavulanate 125 mg tablet completed amoxicillin 875 MG / clavulanate 125 MG Oral Tablet [place] ([facility]) topiramate 25 MG Oral Tablet topiramate 25 mg tablet topiramate 25 mg tablet completed topiramate 25 MG Oral Tablet [facility]) vitamin d3 25 mcg (1000 ut) tabs completed vitamin d3 25 mcg (1000 ut) tabs [place] ([facility]) duloxetine 30 MG Delayed Release Oral Ca psule duloxetine 30 mg capsule,delayed release duloxetine 30 mg capsule,delayed release completed duloxetine 30 MG Delayed Release Oral Capsule [facility]) duloxetine 60 MG Delayed Release Oral Ca psule duloxetine 60 mg capsule,delayed release duloxetine 60 mg capsule,delayed release completed duloxetine 60 MG Delayed Release Oral Capsule [place] ([facility]) Hydroxyzine Hydrochloride 25 MG Oral Tab let hydroxyzine HCl 25 mg tablet TAKE ONE TABLET BY MOUTH THREE TIMES A DAY NEEDED FOR ANXIETY hydroxyzine HCl 25 mg tablet TAKE ONE TABLET BY MOUTH THREE TIMES A DAY NEEDED FOR ANXIETY completed hydroxyzine hydrochlor victoriano 25 MG Oral Tablet [place] ([facility]) Naproxen 500 MG Oral Tablet naproxen 500 mg tablet TAKE ONE TABLET BY MOUTH TWO TIMES A DAY naproxen 500 mg tablet TAKE ONE TABLET BY MOUTH TWO TIMES A DAY completed naproxen 500 MG Oral T ablet [place] ([facility]) Acyclovir 400 MG Oral Tablet acyclovir 400 mg tablet acyclovir 4 00 mg tablet completed acyclovir 400 MG Oral Tablet [place] ([facility]) Nicotine 2 MG Chewing Gum nicotine (abad crilex) [address] ONE [place]ZENGE INSIDE CHEEK NEEDED FOR SMOKING CESSATION nicotine (polacrilex) [address] ONE [place] INSIDE CHEEK NEEDED FOR SMOKING CESSATION completed nicotine 2 MG Chewing Gum [place] ([facility]) Fluconazole 100 MG Oral Tablet fluconazo le 100 mg tablet TAKE ONE TABLET BY MOUTH EVERY DAY FOR YEAST INFECTION fluconazole 100 mg tablet TAKE ONE TABLE T BY MOUTH EVERY DAY FOR YEAST INFECTION co mpleted fluconazole 100 MG Oral Tablet [place] ([facility]) pregabalin 75 MG Oral Capsule pregabalin 75 mg capsule TAKE ONE CAPSULE BY MOUTH TWICE A DAY MAXIMUM DAILY DOSE 2 pregabalin 75 mg capsule TAKE ONE CAPSUL E BY MOUTH TWICE A DAY MAXIMUM DAILY DOSE 2 completed pregabalin 75 MG Oral Capsule [place] ([facility]) buspirone hydrochloride 10 MG Oral Table t buspirone 10 mg tablet TAKE ONE TABLET BY MOUTH TWO TIMES A DAY buspirone 10 mg tablet TAKE ONE TABLET B Y MOUTH TWO TIMES A DAY completed buspirone hydrochloride 10 MG Oral Tablet [place] ([facility]) pregabalin 100 MG Oral Capsule pregabali n 100 mg capsule TAKE ONE CAPSULE BY MOUTH THREE TIMES A DAY MAXIMUM DAILY DOSE 3 pregabalin 100 mg capsule TAKE ONE CAPSULE BY MOUTH THREE TIMES A DAY MAXIMUM DAILY DOSE 3 completed pregabalin 100 MG Oral Capsule [place] [facility] ([facility]) 24 HR Nicotine 0.875 MG/HR Transdermal P atch nicotine 21 mg/24 hr daily transdermal patch [address]ACE 1 PATCH ONTO THE SKIN EVERY 24 HOURS nicotine 21 mg/24 hr daily transdermal patch PLACE 1 PATCH ONTO THE SKIN EVERY 24 HOURS completed 24 HR nicotine 0.875 MG/HR T ransdermal System [place] ([facility]) vitamin d3 25 mcg (1000 ut) tabs completed vitamin d3 25 mcg (1000 ut) tabs [place] ([facility]) Fluconazole 100 MG Oral Tablet fluconazo le 100 mg tablet TAKE ONE TABLET BY MOUTH EVERY DAY FOR YEAST INFECTION fluconazole 100 mg tablet TAKE ONE TABLE T BY MOUTH EVERY DAY FOR YEAST INFECTION co mpleted fluconazole 100 MG Oral Tablet [place] ([facility]) topiramate 25 MG Oral Tablet topiramate 25 mg tablet topiramate 25 mg tablet completed topiramate 25 MG Oral Tablet [place] ([facility]) Cephalexin 500 MG Oral Capsule cephalexi n 500 mg capsule TAKE ONE CAPSULE BY MOUTH TWICE A DAY FOR 10 DAYS cephalexin 500 mg capsule TAKE ONE CAPSU LE BY MOUTH TWICE A DAY FOR 10 DAYS complete d cephalexin 500 MG Oral Capsule [place] ([facility]) topiramate 50 MG Oral Tablet topiramate 50 mg tablet topiramate 50 mg tablet completed topiramate 50 MG Oral Tablet [place] ([facility]) Naproxen sodium 220 MG Oral Tablet naproxen sodium 220 mg tablet naproxen sodium 220 mg tablet completed naproxen sodium 220 MG Oral Tablet [place] ([facility]) duloxetine 30 MG Delayed Release Oral Ca psule duloxetine 30 mg capsule,delayed release duloxetine 30 mg capsule,delayed release completed duloxetine 30 MG Delayed Release Oral Capsule [place] ([facility]) Lorazepam 0.5 MG Oral Tablet lorazepam 0.5 mg tablet lorazepam 0 .5 mg tablet completed lorazepam 0.5 MG Oral Tablet [place] ([facility]) vitamin d3 25 mcg (1000 ut) tabs completed vitamin d3 25 mcg (1000 ut) tabs [place] ([facility]) duloxetine 60 MG Delayed Release Oral Ca psule duloxetine 60 mg capsule,delayed release duloxetine 60 mg capsule,delayed release completed duloxetine 60 MG Delayed Release Oral Capsule [place] ([facility]) tolterodine tartrate 2 MG Oral Tablet tolterodine 2 mg tablet tolterodine 2 mg tablet completed tolterodine tar trate 2 MG Oral Tablet [facility] ([facility]) Fluconazole 150 MG Oral Tablet fluconazo le 150 mg tablet TAKE ONE TABLET BY MOUTH ON DAY 1 CAN REPEAT ON DAY 3 IF NOT RESOLVED fluconazole 150 mg tablet TAKE ONE TABLET BY MOUTH ON DAY 1 CAN REPEAT ON DAY 3 IF NOT RESOLVED completed fluconazole 150 MG Oral T ablet [place] ([facility]) Naproxen 500 MG Oral Tablet naproxen 500 mg tablet TAKE ONE TABLET BY MOUTH TWO TIMES A DAY naproxen 500 mg tablet TAKE ONE TABLET BY MOUTH TWO TIMES A DAY completed naproxen 500 MG Oral T ablet [place] ([facility]) pregabalin 75 MG Oral Capsule pregabalin 75 mg capsule TAKE ONE CAPSULE BY MOUTH TWICE A DAY MAXIMUM DAILY DOSE 2 pregabalin 75 mg capsule TAKE ONE CAPSUL E BY MOUTH TWICE A DAY MAXIMUM DAILY DOSE 2 completed pregabalin 75 MG Oral Capsule [place] ([facility]) Naproxen 500 MG Oral Tablet naproxen 500 mg tablet TAKE ONE TABLET BY MOUTH TWO TIMES A DAY naproxen 500 mg tablet TAKE ONE TABLET BY MOUTH TWO TIMES A DAY completed naproxen 500 MG Oral T ablet [place] ([facility]) lidoc/m dry[facility] SW[facility] AND SWALLOW 10 ML EVERY 4 HOURS NEEDED completed lidoc/m dry[facility] [place] ([facility]) Ketorolac Tromethamine 10 MG Oral Tablet ketorolac 10 mg tablet ketorolac 10 mg tablet completed ketorolac trome thamine 10 MG Oral Tablet [place] ([facility]) Fluconazole 100 MG Oral Tablet fluconazo le 100 mg tablet TAKE ONE TABLET BY MOUTH EVERY DAY FOR YEAST INFECTION fluconazole 100 mg tablet TAKE ONE TABLE T BY MOUTH EVERY DAY FOR YEAST INFECTION co mpleted fluconazole 100 MG Oral Tablet [place] ([facility]) Nystatin 100 UNT/MG Topical Powder nysta tin 100,000 unit/gram topical powder APPLY TOPICALLY TWO TIMES A DAY TO AFFECTED AREAS nystatin 100,000 unit/gram topical powder APPLY TOPICALLY TWO TIMES A DAY TO AFFECTED AREAS completed nystatin 100 UNT/MG Topical Powd er [place] ([facility]) Cholecalciferol 1000 UNT Oral Tablet cho lecalciferol (vitamin D3) 25 mcg (1,000 unit) tablet cholecalciferol (vitamin D3) 25 mcg (1,000 unit) tablet completed cholecalciferol 0.025 MG Ora l Tablet [facility] ([facility]) 24 HR venlafaxine 150 MG Extended Releas e Oral Capsule venlafaxine ER 150 mg capsule,extended release 24 hr TAKE 1 CAPSULE BY MOUTH EVERY DAY venlafaxine ER 150 mg capsule,extended release 24 hr TAKE 1 CAPSULE BY MOUTH EVERY DAY completed 24 HR venlafaxine 150 MG Extended Release Oral Capsule [place] ([facility]) 24 HR Nicotine 0.875 MG/HR Transdermal P atch nicotine 21 mg/24 hr daily transdermal patch PLACE 1 PATCH ONTO THE SKIN EVERY 24 HOURS nicotine 21 mg/24 hr daily transdermal patch PLACE 1 PATCH ONTO THE SKIN EVERY 24 HOURS completed 24 HR nicotine 0.875 MG/HR T ransdermal System [place] ([facility]) cetirizine hydrochloride 10 MG Oral Tablet cetirizine 10 mg tablet cetirizine 10 mg tablet completed cetirizine h ydrochloride 10 MG Oral Tablet [place] ([facility]) Vitamins B Complex capsule [id number] comp leted Vitamins B Complex capsule [facility] ([facility]) topiramate 25 MG Oral Tablet topiramate 25 mg tablet topiramate 25 mg tablet completed topiramate 25 MG Oral Tablet [place] ([facility]) topiramate 50 MG Oral Tablet topiramate 50 mg tablet topiramate 50 mg tablet completed topiramate 50 MG Oral Tablet [place] ([facility]) 24 HR venlafaxine 37.5 [...] MG Extended Release Oral Capsule [Effexor] [facility] ([facility]) vitamin d3 25 mcg (1000 ut) tabs completed vitamin d3 25 mcg (1000 ut) tabs [place] ([facility]) Naproxen 500 MG Oral Tablet naproxen 500 mg tablet TAKE ONE TABLET BY MOUTH TWO TIMES A DAY naproxen 500 mg tablet TAKE ONE TABLET BY MOUTH TWO TIMES A DAY completed naproxen 500 MG Oral T ablet [place] ([facility]) Levothyroxine Sodium 0.025 MG Oral Tablet levothyroxin e 25 mcg tablet levothyroxine 25 mcg tablet completed levothyroxine sodium 0.025 MG Oral Tablet [place] ([facility]) Naproxen sodium 220 MG Oral Tablet naproxen sodium 220 mg tablet naproxen sodium 220 mg tablet completed naproxe n sodium 220 MG Oral Tablet [place] ([facility]) Loratadine 10 MG Oral Tablet loratadine 10 mg tablet loratadine 10 mg tablet completed loratadine 10 MG Oral Tablet [place] ([facility]) Lorazepam 0.5 MG Oral Tablet lorazepam 0.5 mg tablet lorazepam 0 .5 mg tablet completed lorazepam 0.5 MG Oral Tablet [place] ([facility]) Levothyroxine Sodium 0.025 MG Oral Tablet levothyroxin e 25 mcg tablet levothyroxine 25 mcg tablet completed levothyroxine sodium 0.025 MG Oral Tablet [place] ([facility]) Phenazopyridine hydrochloride 200 MG Ora l Tablet phenazopyridine 200 mg tablet TAKE ONE TABLET BY MOUTH THREE TIMES A DAY FOR 2 DAYS phenazopyridine 200 mg tablet TAKE ONE TABLET BY MOUTH THREE TIMES A DAY FOR 2 DAYS completed phenazopyridine hydrochloride 20 0 MG Oral Tablet [place] ([facility]) 24 HR venlafaxine 37.5 [...] MG Extended Release Oral Capsule [Effexor] [facility] ([facility]) cetirizine hydrochloride 10 MG Oral Tablet cetirizine 10 mg tablet cetirizine 10 mg tablet completed cetirizine hydrochloride 10 MG Oral Tablet [place] ([facility]) Naproxen sodium 220 MG Oral Tablet naproxen sodium 220 mg tablet naproxen sodium 220 mg tablet completed naproxe n sodium 220 MG Oral Tablet [place] ([facility]) Lorazepam 0.5 MG Oral Tablet lorazepam 0.5 mg tablet lorazepam 0 .5 mg tablet completed lorazepam 0.5 MG Oral Tablet [place] ([facility]) Levothyroxine Sodium 0.025 MG Oral Tablet levothyroxin e 25 mcg tablet levothyroxine 25 mcg tablet completed levothyroxine sodium 0.025 MG Oral Tablet [place] ([facility]) duloxetine 30 MG Delayed Release Oral Ca psule duloxetine 30 mg capsule,delayed release duloxetine 30 mg capsule,delayed release completed duloxetine 30 MG Delayed Release Oral Capsule [place] ([facility]) topiramate 50 MG Oral Tablet topiramate 50 mg tablet topiramate 50 mg tablet completed topiramate 50 MG Oral Tablet [place] ([facility]) Naproxen 250 MG Oral Tablet naproxen 250 mg tablet TAKE ONE TABLET BY MOUTH TWICE A DAY NEEDED FOR PAIN naproxen 250 mg tablet TAKE ONE TABLET B Y MOUTH TWICE A DAY NEEDED FOR PAIN complet ed naproxen 250 MG Oral Tablet [place] ([facility]) tolterodine tartrate 2 MG Oral Tablet tolterodine 2 mg tablet tolterodine 2 mg tablet completed tolterodine tar trate 2 MG Oral Tablet [place] ([facility]) lidoc/m dry/[facility] SWISH AND SWALLOW 10 ML EVERY 4 HOURS NEEDED completed lidoc/m dry[facility] [place] ([facility]) Oxybutynin chloride 5 MG Oral Tablet oxy butynin chloride 5 mg tablet TAKE ONE TABLET BY MOUTH TWICE A DAY oxybutynin chloride 5 mg tablet TAKE ONE TABLET BY MOUTH TWICE A DAY completed oxybutynin chloride 5 MG Oral Tablet [place] ([facility]) lidoc/m dry/[facility] SWISH AND SWALLOW 10 ML EVERY 4 HOURS NEEDED completed lidoc/m dry[facility] ([facility]) Nicotine 2 MG Chewing Gum nicotine (abad crilex) [address] [place] INSIDE CHEEK NEEDED FOR SMOKING CESSATION nicotine (polacrilex) [address] [place] INSIDE CHEEK NEEDED FOR SMOKING CESSATION completed nicotine 2 MG Chewing Gum [place] ([facility]) Naproxen 250 MG Oral Tablet naproxen 250 mg tablet TAKE ONE TABLET BY MOUTH TWICE A DAY NEEDED FOR PAIN naproxen 250 mg tablet TAKE ONE TABLET B Y MOUTH TWICE A DAY NEEDED FOR PAIN complet ed naproxen 250 MG Oral Tablet [facility] ([facility]) Nystatin 841194 UNT/ML Topical Cream nys tatin 100,000 unit/gram topical cream APPLY TO VAGINAL RASH TOPICALLY TWICE A DAY FOR 10 DAYS nystatin 100,000 unit/gram topical cream APPLY TO VAGINAL RASH TOPICALLY TWICE A DAY FOR 10 DAYS completed nystatin 61999 0 UNT/ML Topical Cream [facility] ([facility]) duloxetine 30 MG Delayed Release Oral Ca psule duloxetine 30 mg capsule,delayed release duloxetine 30 mg capsule,delayed release completed duloxetine 30 MG Delayed Release Oral Capsule [facility] ([facility]) Naproxen 500 MG Oral Tablet naproxen 500 mg tablet TAKE ONE TABLET BY MOUTH TWO TIMES A DAY naproxen 500 mg tablet TAKE ONE TABLET BY MOUTH TWO TIMES A DAY completed naproxen 500 MG Oral T ablet [place] ([facility]) topiramate 50 MG Oral Tablet topiramate 50 mg tablet topiramate 50 mg tablet completed topiramate 50 MG Oral Tablet [facility] ([facility]) pregabalin 100 MG Oral Capsule pregabali n 100 mg capsule TAKE ONE CAPSULE BY MOUTH THREE TIMES A DAY MAXIMUM DAILY DOSE 3 pregabalin 100 mg capsule TAKE ONE CAPSULE BY MOUTH THREE TIMES A DAY MAXIMUM DAILY DOSE 3 completed pregabalin 100 MG Oral Capsule [place] ([facility]) duloxetine 60 MG Delayed Release Oral Ca psule duloxetine 60 mg capsule,delayed release duloxetine 60 mg capsule,delayed release completed duloxetine 60 MG Delayed Release Oral Capsule [facility] ([facility]) Loratadine 10 MG Oral Tablet loratadine 10 mg tablet loratadine 10 mg tablet completed loratadine 10 MG Oral Tablet [place] ([facility]) Baclofen 10 MG Oral Tablet baclofen 10 mg tablet baclofen 10 mg tablet completed baclofen 10 MG Oral Table t [facility] ([facility]) Naproxen 500 MG Oral Tablet naproxen 500 mg tablet TAKE ONE TABLET BY MOUTH TWO TIMES A DAY naproxen 500 mg tablet TAKE ONE TABLET BY MOUTH TWO TIMES A DAY completed naproxen 500 MG Oral T ablet [facility] ([facility]) Atropine Sulfate 0.025 MG / [...] diphenoxylate hydrochloride 2.5 MG Oral Tablet [facility] ([facility]) Fluconazole 100 MG Oral Tablet fluconazo le 100 mg tablet TAKE ONE TABLET BY MOUTH EVERY DAY FOR YEAST INFECTION fluconazole 100 mg tablet TAKE ONE TABLE T BY MOUTH EVERY DAY FOR YEAST INFECTION c ompleted fluconazole 100 MG Oral Tablet [place] ([facility]) Hydroxyzine Hydrochloride 25 MG Oral Tab let hydroxyzine HCl 25 mg tablet TAKE ONE TABLET BY MOUTH THREE TIMES A DAY NEEDED FOR ANXIETY hydroxyzine HCl 25 mg tablet TAKE ONE TABLET BY MOUTH THREE TIMES A DAY NEEDED FOR ANXIETY completed hydroxyzine hydrochlor victoriano 25 MG Oral Tablet [place] ([facility]) vitamin d3 25 mcg (1000 ut) tabs completed vitamin d3 25 mcg (1000 ut) tabs [place] ([facility]) Oxybutynin chloride 5 MG Oral Tablet oxy butynin chloride 5 mg tablet TAKE ONE TABLET BY MOUTH TWICE A DAY oxybutynin chloride 5 mg tablet TAKE ONE TABLET BY MOUTH TWICE A DAY completed oxybutynin chloride 5 MG Oral Tablet [place] ([facility]) Cholecalciferol 1000 UNT Oral Tablet cho lecalciferol (vitamin D3) 25 mcg (1,000 unit) tablet cholecalciferol (vitamin D3) 25 mcg (1,000 unit) tablet completed cholecalciferol 0.025 MG Ora l Tablet [place] ([facility]) fluticasone propionate 50 mcg/actuation nasal spray,suspension [id number] completed fluticasone propionate 0.05 MG/ACTUAT Metered Dose Nasal [facility]) duloxetine 60 MG Delayed Release Oral Ca psule duloxetine 60 mg capsule,delayed release duloxetine 60 mg capsule,delayed release completed duloxetine 60 MG Delayed Release Oral Capsule [place] ([facility]) topiramate 25 MG Oral Tablet topiramate 25 mg tablet topiramate 25 mg tablet completed topiramate 25 MG Oral Tablet [place] ([facility]) 24 HR venlafaxine 37.5 [...] MG Extended Release Oral Capsule [Effexor] [facility] ([facility]) pregabalin 100 MG Oral Capsule pregabali n 100 mg capsule TAKE ONE CAPSULE BY MOUTH THREE TIMES A DAY MAXIMUM DAILY DOSE 3 pregabalin 100 mg capsule TAKE ONE CAPSULE BY MOUTH THREE TIMES A DAY MAXIMUM DAILY DOSE 3 completed pregabalin 100 MG Oral Capsule A [facility] ([facility]) Nystatin 245437 UNT/ML Oral Suspension n ystatin 100,000 unit/mL oral suspension TAKE 5 ML BY MOUTH FOUR TIMES A DAY FOR 10 DAYS nystatin 100,000 unit/mL oral suspension TAKE 5 ML BY MOUTH FOUR TIMES A DAY FOR 10 DAYS completed nystatin 282099 UNT/ML Oral Susp ension [facility] ([facility]) pregabalin 100 MG Oral Capsule pregabali n 100 mg capsule TAKE ONE CAPSULE BY MOUTH THREE TIMES A DAY MAXIMUM DAILY DOSE 3 pregabalin 100 mg capsule TAKE ONE CAPSULE BY MOUTH THREE TIMES A DAY MAXIMUM DAILY DOSE 3 completed pregabalin 100 MG Oral Capsule [facility] ([facility]) topiramate 50 MG Oral Tablet topiramate 50 mg tablet topiramate 50 mg tablet completed topiramate 50 MG Oral Tablet [facility] ([facility]) Amitriptyline Hydrochloride 25 MG Oral T ablet amitriptyline 25 mg tablet TAKE ONE TABLET BY MOUTH ONCE DAILY IN THE EVENING amitriptyline 25 mg tablet TAKE ONE TABLET BY MOUTH ONCE DAILY IN THE EVENING completed amitriptyline hydrochloride 25 MG Oral Tablet [facility] ([facility]) lidoc/m dry/[facility] SWISH AND SWALLOW 10 ML EVERY 4 HOURS NEEDED completed lidoc/m dry/[facility] ([facility]) Naproxen 250 MG Oral Tablet naproxen 250 mg tablet TAKE ONE TABLET BY MOUTH TWICE A DAY NEEDED FOR PAIN naproxen 250 mg tablet TAKE ONE TABLET B Y MOUTH TWICE A DAY NEEDED FOR PAIN complet ed naproxen 250 MG Oral Tablet [facility] ([facility]) Amoxicillin 875 MG / Clavulanate 125 MG Oral Tablet amoxicillin 875 mg-potassium clavulanate 125 mg tablet amoxicillin 875 mg-potassium clavulanate 125 mg tablet completed amoxici llin 875 MG / clavulanate 125 MG Oral Tablet [facility] ([facility]) cetirizine hydrochloride 10 MG Oral Tablet cetirizine 10 mg tablet cetirizine 10 mg tablet completed cetirizine hydrochloride 10 MG Oral Tablet [facility] ([facility]) Baclofen 10 MG Oral Tablet baclofen 10 mg tablet baclofen 10 mg tablet completed baclofen 10 MG Oral Table t [place] ([facility]) Lorazepam 0.5 MG Oral Tablet lorazepam 0.5 mg tablet lorazepam 0 .5 mg tablet completed lorazepam 0.5 MG Oral Tablet [place] ([facility]) 24 HR Nicotine 0.875 MG/HR Transdermal P atch nicotine 21 mg/24 hr daily transdermal patch [address] 1 PATCH ONTO THE SKIN EVERY 24 HOURS nicotine 21 mg/24 hr daily transdermal patch PLACE 1 PATCH ONTO THE SKIN EVERY 24 HOURS completed 24 HR nicotine 0.875 MG/HR T ransdermal System [place] ([facility]) Oxybutynin chloride 5 MG Oral Tablet oxy butynin chloride 5 mg tablet TAKE ONE TABLET BY MOUTH TWICE A DAY oxybutynin chloride 5 mg tablet TAKE ONE TABLET BY MOUTH TWICE A DAY completed oxybutynin chloride 5 MG Oral Tablet [facility] ([facility]) Amoxicillin 875 MG / Clavulanate 125 MG Oral Tablet amoxicillin 875 mg-potassium clavulanate 125 mg tablet amoxicillin 875 mg-potassium clavulanate 125 mg tablet completed amoxici llin 875 MG / clavulanate 125 MG Oral Tablet [facility] ([facility]) Lorazepam 0.5 MG Oral Tablet lorazepam 0.5 mg tablet lorazepam 0 .5 mg tablet completed lorazepam 0.5 MG Oral Tablet [place] ([facility]) Naproxen sodium 220 MG Oral Tablet naproxen sodium 220 mg tablet naproxen sodium 220 mg tablet completed naproxe n sodium 220 MG Oral Tablet [place] ([facility]) lidoc/m dry/[facility] SWISH AND SWALLOW 10 ML EVERY 4 HOURS NEEDED completed lidoc/m dry[facility] [place] ([facility]) Amoxicillin 875 MG / Clavulanate 125 MG Oral Tablet amoxicillin 875 mg-potassium clavulanate 125 mg tablet amoxicillin 875 mg-potassium clavulanate 125 mg tablet completed amoxici llin 875 MG / clavulanate 125 MG Oral Tablet [place] ([facility]) Ketorolac Tromethamine 10 MG Oral Tablet ketorolac 10 mg tablet ketorolac 10 mg tablet completed ketorolac trome thamine 10 MG Oral Tablet [place] ([facility]) Amitriptyline Hydrochloride 25 MG Oral T ablet amitriptyline 25 mg tablet TAKE ONE TABLET BY MOUTH ONCE DAILY IN THE EVENING amitriptyline 25 mg tablet TAKE ONE TABLET BY MOUTH ONCE DAILY IN THE EVENING completed amitriptyline hydrochloride 25 MG Oral Tablet [place] ([facility]) Acyclovir 400 MG Oral Tablet acyclovir 400 mg tablet acyclovir 4 00 mg tablet completed acyclovir 400 MG Oral Tablet [place] ([facility]) Amoxicillin 875 MG / Clavulanate 125 MG Oral Tablet amoxicillin 875 mg-potassium clavulanate 125 mg tablet amoxicillin 875 mg-potassium clavulanate 125 mg tablet completed amoxici llin 875 MG / clavulanate 125 MG Oral Tablet [place] ([facility]) Ciprofloxacin 500 MG Oral Tablet ciprofloxacin 500 mg tablet ciprofloxacin 500 mg tablet completed ciprofloxaci n 500 MG Oral Tablet [place] ([facility]) Fluconazole 150 MG Oral Tablet fluconazo le 150 mg tablet TAKE ONE TABLET BY MOUTH ON DAY 1 CAN REPEAT ON DAY 3 IF NOT RESOLVED fluconazole 150 mg tablet TAKE ONE TABLET BY MOUTH ON DAY 1 CAN REPEAT ON DAY 3 IF NOT RESOLVED completed fluconazole 150 MG Oral T ablet [place] ([facility]) 24 HR Nicotine 0.875 MG/HR Transdermal P atch nicotine 21 mg/24 hr daily transdermal patch PLACE 1 PATCH ONTO THE SKIN EVERY 24 HOURS nicotine 21 mg/24 hr daily transdermal patch PLACE 1 PATCH ONTO THE SKIN EVERY 24 HOURS completed 24 HR nicotine 0.875 MG/HR T ransdermal System [facility]) Oxybutynin chloride 5 MG Oral Tablet oxy butynin chloride 5 mg tablet TAKE ONE TABLET BY MOUTH TWICE A DAY oxybutynin chloride 5 mg tablet TAKE ONE TABLET BY MOUTH TWICE A DAY completed oxybutynin chloride 5 MG Oral Tablet [place] ([facility]) fluticasone propionate 50 mcg/actuation nasal spray,suspension [id number] completed fluticasone propionate 0.05 MG/ACTUAT Metered Dose Nasal [facility] [place] ([facility]) Baclofen 10 MG Oral Tablet baclofen 10 mg tablet baclofen 10 mg tablet completed baclofen 10 MG Oral Table t [place] ([facility]) tolterodine tartrate 2 MG Oral Tablet tolterodine 2 mg tablet tolterodine 2 mg tablet completed tolterodine tar trate 2 MG Oral Tablet [place] ([facility]) Nystatin [id number] UNT/ML Oral Suspension n ystatin 100,000 unit/mL oral suspension TAKE 5 ML BY MOUTH FOUR TIMES A DAY FOR 10 DAYS nystatin 100,000 unit/mL oral suspension TAKE 5 ML BY MOUTH FOUR TIMES A DAY FOR 10 DAYS completed nystatin [id number] UNT/ML Oral Susp ension [place] ([facility]) pregabalin 75 MG Oral Capsule pregabalin 75 mg capsule TAKE ONE CAPSULE BY MOUTH TWICE A DAY MAXIMUM DAILY DOSE 2 pregabalin 75 mg capsule TAKE ONE CAPSUL E BY MOUTH TWICE A DAY MAXIMUM DAILY DOSE 2 completed pregabalin 75 MG Oral Capsule [place] ([facility]) 24 HR venlafaxine 37.5 MG Extended [...] 37.5 MG Extended Release Oral Capsule [Effexor] [place] ([facility]) Lorazepam 0.5 MG Oral Tablet lorazepam 0.5 mg tablet lorazepam 0 .5 mg tablet completed lorazepam 0.5 MG Oral Tablet [place] ([facility]) topiramate 25 MG Oral Tablet topiramate 25 mg tablet topiramate 25 mg tablet completed topiramate 25 MG Oral Tablet [place] ([facility]) Baclofen 10 MG Oral Tablet baclofen 10 mg tablet baclofen 10 mg tablet completed baclofen 10 MG Oral Table t [place] ([facility]) Sulfamethoxazole 800 MG / Trimethoprim 1 60 MG Oral Tablet sulfamethoxazole 800 mg-trimethoprim 160 mg tablet sulfamethoxazole 800 mg-trimethoprim 160 mg tablet completed sulfame thoxazole 800 MG / trimethoprim 160 MG Oral Tablet [place] ([facility]) tolterodine tartrate 2 MG Oral Tablet tolterodine 2 mg tablet tolterodine 2 mg tablet completed tolterodine tar trate 2 MG Oral Tablet [place] ([facility]) duloxetine 60 MG Delayed Release Oral Ca psule duloxetine 60 mg capsule,delayed release duloxetine 60 mg capsule,delayed release completed duloxetine 60 MG Delayed Release Oral Capsule [place] ([facility]) Naproxen sodium 220 MG Oral Tablet naproxen sodium 220 mg tablet naproxen sodium 220 mg tablet completed naproxe n sodium 220 MG Oral Tablet [place] ([facility]) pregabalin 75 MG Oral Capsule pregabalin 75 mg capsule TAKE ONE CAPSULE BY MOUTH TWICE A DAY MAXIMUM DAILY DOSE 2 pregabalin 75 mg capsule TAKE ONE CAPSUL E BY MOUTH TWICE A DAY MAXIMUM DAILY DOSE 2 completed pregabalin 75 MG Oral Capsule [place] ([facility]) Naproxen 500 MG Oral Tablet naproxen 500 mg tablet TAKE ONE TABLET BY MOUTH TWO TIMES A DAY naproxen 500 mg tablet TAKE ONE TABLET BY MOUTH TWO TIMES A DAY completed naproxen 500 MG Oral T ablet [place] ([facility]) 24 HR venlafaxine 37.5 [...] 37.5 MG Extended Release Oral Capsule [Effexor] [place] ([facility]) Amoxicillin 875 MG / Clavulanate 125 MG Oral Tablet amoxicillin 875 mg-potassium clavulanate 125 mg tablet amoxicillin 875 mg-potassium clavulanate 125 mg tablet completed amoxici llin 875 MG / clavulanate 125 MG Oral Tablet [place] ([facility]) Lorazepam 0.5 MG Oral Tablet lorazepam 0.5 mg tablet lorazepam 0 .5 mg tablet completed lorazepam 0.5 MG Oral Tablet [place] ([facility]) duloxetine 60 MG Delayed Release Oral Ca psule duloxetine 60 mg capsule,delayed release duloxetine 60 mg capsule,delayed release completed duloxetine 60 MG Delayed Release Oral Capsule [place] ([facility]) Phenazopyridine hydrochloride 200 MG Oral Tablet phena zopyridine 200 mg tablet phenazopyridine 200 mg tablet complete d phenazopyridine hydrochloride 200 MG Oral Tablet [place] ([facility]) duloxetine 30 MG Delayed Release Oral Ca psule duloxetine 30 mg capsule,delayed release duloxetine 30 mg capsule,delayed release completed duloxetine 30 MG Delayed Release Oral Capsule [place] ([facility]) fluticasone propionate 50 mcg/actuation nasal spray,suspension [id number] completed fluticasone propionate 0.05 MG/ACTUAT Metered Dose Nasal [facility] [place] ([facility]) Hydroxyzine Hydrochloride 25 MG Oral Tab let hydroxyzine HCl 25 mg tablet TAKE ONE TABLET BY MOUTH THREE TIMES A DAY NEEDED FOR ANXIETY hydroxyzine HCl 25 mg tablet TAKE ONE TABLET BY MOUTH THREE TIMES A DAY NEEDED FOR ANXIETY completed hydroxyzine hydrochlor victoriano 25 MG Oral Tablet [place] ([facility]) Loratadine 10 MG Oral Tablet loratadine 10 mg tablet loratadine 10 mg tablet completed loratadine 10 MG Oral Tablet [place] ([facility]) Fluconazole 150 MG Oral Tablet fluconazo le 150 mg tablet TAKE 1 TABLET BY MOUTH FOR 1 DOSE fluconazole 150 mg tablet TAKE 1 TABLET BY MOUTH FOR 1 DOSE completed fluconazole 150 MG Oral T ablet [facility]) Fluconazole 100 MG Oral Tablet fluconazo le 100 mg tablet TAKE ONE TABLET BY MOUTH EVERY DAY FOR YEAST INFECTION fluconazole 100 mg tablet TAKE ONE TABLE T BY MOUTH EVERY DAY FOR YEAST INFECTION c ompleted fluconazole 100 MG Oral Tablet [place] ([facility]) Nystatin [id number] UNT/ML Oral Suspension n ystatin 100,000 unit/mL oral suspension TAKE 5 ML BY MOUTH FOUR TIMES A DAY FOR 10 DAYS nystatin 100,000 unit/mL oral suspension TAKE 5 ML BY MOUTH FOUR TIMES A DAY FOR 10 DAYS completed nystatin [id number] UNT/ML Oral Susp ension [facility]) 24 HR venlafaxine 37.5 MG Extended Relea [...] MG Extended Release Oral Capsule [Effexor] [place] ([facility]) Fluconazole 100 MG Oral Tablet fluconazo le 100 mg tablet TAKE ONE TABLET BY MOUTH EVERY DAY FOR YEAST INFECTION fluconazole 100 mg tablet TAKE ONE TABLE T BY MOUTH EVERY DAY FOR YEAST INFECTION c ompleted fluconazole 100 MG Oral Tablet [facility] ([facility]) Fluconazole 100 MG Oral Tablet fluconazo le 100 mg tablet TAKE ONE TABLET BY MOUTH EVERY DAY FOR YEAST INFECTION fluconazole 100 mg tablet TAKE ONE TABLE T BY MOUTH EVERY DAY FOR YEAST INFECTION c ompleted fluconazole 100 MG Oral Tablet [place] ([facility]) Hydroxyzine Hydrochloride 25 MG Oral Tab let hydroxyzine HCl 25 mg tablet TAKE ONE TABLET BY MOUTH THREE TIMES A DAY NEEDED FOR ANXIETY hydroxyzine HCl 25 mg tablet TAKE ONE TABLET BY MOUTH THREE TIMES A DAY NEEDED FOR ANXIETY completed hydroxyzine hydrochlor victoriano 25 MG Oral Tablet [place] ([facility]) Levothyroxine Sodium 0.025 MG Oral Tablet levothyroxin e 25 mcg tablet levothyroxine 25 mcg tablet completed levothyroxine sodium 0.025 MG Oral Tablet [place] ([facility]) duloxetine 30 MG Delayed Release Oral Ca psule duloxetine 30 mg capsule,delayed release duloxetine 30 mg capsule,delayed release completed duloxetine 30 MG Delayed Release Oral Capsule [place] ([facility]) duloxetine 30 MG Delayed Release Oral Ca psule duloxetine 30 mg capsule,delayed release duloxetine 30 mg capsule,delayed release completed duloxetine 30 MG Delayed Release Oral Capsule [place] ([facility]) tolterodine tartrate 2 MG Oral Tablet tolterodine 2 mg tablet tolterodine 2 mg tablet completed tolterodine tar trate 2 MG Oral Tablet [place] ([facility]) Acyclovir 400 MG Oral Tablet acyclovir 400 mg tablet acyclovir 4 00 mg tablet completed acyclovir 400 MG Oral Tablet [place] ([facility]) gabapentin 400 MG Oral Capsule gabapenti n 400 mg capsule TAKE TWO CAPSULES BY MOUTH THREE TIMES A DAY MAXIMUM DAILY DOSE 6 CAPSULES gabapentin 400 mg capsule TAKE TWO CAPSULES BY MOUTH THREE TIMES A DAY MAXIMUM DAILY DOSE 6 CAPSULES completed gabapentin 40 0 MG Oral Capsule [place] ([facility]) Sulfamethoxazole 800 MG / Trimethoprim 1 60 MG Oral Tablet sulfamethoxazole 800 mg-trimethoprim 160 mg tablet TAKE ONE TABLET BY MOUTH TWO TIMES PER DAY FOR 7 DAYS sulfamethoxazole 800 mg-trimethoprim 160 mg tablet TAKE ONE TABLET BY MOUTH TWO TIMES PER DAY FOR 7 DAYS complete d sulfamethoxazole 800 MG / trimethoprim 160 MG Oral Tablet [place] ([facility]) Nystatin [id number] UNT/ML Oral Suspension n ystatin 100,000 unit/mL oral suspension TAKE 5 ML BY MOUTH FOUR TIMES A DAY FOR 10 DAYS nystatin 100,000 unit/mL oral suspension TAKE 5 ML BY MOUTH FOUR TIMES A DAY FOR 10 DAYS completed nystatin [id number] UNT/ML Oral Susp ension [place] ([facility]) Nicotine 2 MG Chewing Gum nicotine (abad crilex) [address] [place] INSIDE CHEEK NEEDED FOR SMOKING CESSATION nicotine (polacrilex) [address] [place] INSIDE CHEEK NEEDED FOR SMOKING CESSATION completed nicotine 2 MG Chewing Gum [facility]) 24 HR Nicotine 0.875 MG/HR Transdermal P atch nicotine 21 mg/24 [address] daily transdermal patch [address] 1 PATCH ONTO THE SKIN EVERY 24 HOURS nicotine 21 mg/[address] patch [address] 1 PATCH ONTO THE SKIN EVERY 24 HOURS completed 24 HR nicotine 0.875 MG/HR T ransdermal System [facility]) Loratadine 10 MG Oral Tablet loratadine 10 mg tablet loratadine 10 mg tablet completed loratadine 10 MG Oral Tablet [place] ([facility]) Ketorolac Tromethamine 10 MG Oral Tablet ketorolac 10 mg tablet ketorolac 10 mg tablet completed ketorolac trome thamine 10 MG Oral Tablet [facility]) Acyclovir 400 MG Oral Tablet acyclovir 400 mg tablet acyclovir 4 00 mg tablet completed acyclovir 400 MG Oral Tablet [facility]) tolterodine tartrate 2 MG Oral Tablet tolterodine 2 mg tablet tolterodine 2 mg tablet completed tolterodine tar trate 2 MG Oral Tablet [place] ([facility]) topiramate 50 MG Oral Tablet topiramate 50 mg tablet topiramate 50 mg tablet completed topiramate 50 MG Oral Tablet [place] ([facility]) Nystatin [id number] UNT/ML Oral Suspension n ystatin 100,000 unit/mL oral suspension TAKE 5 ML BY MOUTH FOUR TIMES A DAY FOR 10 DAYS nystatin 100,000 unit/mL oral suspension TAKE 5 ML BY MOUTH FOUR TIMES A DAY FOR 10 DAYS completed nystatin [id number] UNT/ML Oral Susp ension [place] ([facility]) Lorazepam 0.5 MG Oral Tablet lorazepam 0.5 mg tablet lorazepam 0 .5 mg tablet completed lorazepam 0.5 MG Oral Tablet [place] ([facility]) Acyclovir 400 MG Oral Tablet acyclovir 400 mg tablet acyclovir 4 00 mg tablet completed acyclovir 400 MG Oral Tablet [place] ([facility]) Fluconazole 100 MG Oral Tablet fluconazo le 100 mg tablet TAKE ONE TABLET BY MOUTH EVERY DAY FOR YEAST INFECTION fluconazole 100 mg tablet TAKE ONE TABLE T BY MOUTH EVERY DAY FOR YEAST INFECTION c ompleted fluconazole 100 MG Oral Tablet [place] ([facility]) 24 HR Nicotine 0.875 MG/HR Transdermal P atch nicotine 21 mg/24 hr daily transdermal patch [address]ACE 1 PATCH ONTO THE SKIN EVERY 24 HOURS nicotine 21 mg/24 [address] daily transdermal patch [address]ACE 1 PATCH ONTO THE SKIN EVERY 24 HOURS completed 24 HR nicotine 0.875 MG/HR T ransdermal System [place] ([facility]) duloxetine 60 MG Delayed Release Oral Ca psule duloxetine 60 mg capsule,delayed release duloxetine 60 mg capsule,delayed release completed duloxetine 60 MG Delayed Release Oral Capsule [place] ([facility]) Cholecalciferol 2000 UNT Oral Capsule ch olecalciferol (vitamin D3) 50 mcg (2,000 unit) capsule TAKE ONE TABLET BY MOUTH EVERY DAY cholecalciferol (vitamin D3) 50 mcg (2,000 unit) capsule TAKE ONE TABLET BY MOUTH EVERY DAY completed cholecalciferol 0.05 MG Oral Cap miranda [place] ([facility]) vitamin d3 25 mcg (1000 ut) tabs completed vitamin d3 25 mcg (1000 ut) tabs [place] ([facility]) duloxetine 30 MG Delayed Release Oral Ca psule duloxetine 30 mg capsule,delayed release duloxetine 30 mg capsule,delayed release completed duloxetine 30 MG Delayed Release Oral Capsule [place] ([facility]) Lorazepam 0.5 MG Oral Tablet lorazepam 0.5 mg tablet lorazepam 0 .5 mg tablet completed lorazepam 0.5 MG Oral Tablet [place] ([facility]) Loratadine 10 MG Oral Tablet loratadine 10 mg tablet loratadine 10 mg tablet completed loratadine 10 MG Oral Tablet [place] ([facility]) Hydroxyzine Hydrochloride 25 MG Oral Tab let hydroxyzine HCl 25 mg tablet TAKE ONE TABLET BY MOUTH THREE TIMES A DAY NEEDED FOR ANXIETY hydroxyzine HCl 25 mg tablet TAKE ONE TABLET BY MOUTH THREE TIMES A DAY NEEDED FOR ANXIETY completed hydroxyzine hydrochlor victoriano 25 MG Oral Tablet [place] ([facility]) Lorazepam 0.5 MG Oral Tablet lorazepam 0.5 mg tablet lorazepam 0 .5 mg tablet completed lorazepam 0.5 MG Oral Tablet [place] ([facility]) letrozole 2.5 MG Oral Tablet letrozole 2.5 mg tablet letrozole 2 .5 mg tablet completed letrozole 2.5 MG Oral Tablet [place] ([facility]) Amitriptyline Hydrochloride 25 MG Oral T ablet amitriptyline 25 mg tablet TAKE ONE TABLET BY MOUTH ONCE DAILY IN THE EVENING amitriptyline 25 mg tablet TAKE ONE TABLET BY MOUTH ONCE DAILY IN THE EVENING completed amitriptyline hydrochloride 25 MG Oral Tablet [place] ([facility]) tolterodine tartrate 2 MG Oral Tablet tolterodine 2 mg tablet tolterodine 2 mg tablet completed tolterodine tar trate 2 MG Oral Tablet [place] ([facility]) Loratadine 10 MG Oral Tablet loratadine 10 mg tablet loratadine 10 mg tablet completed loratadine 10 MG Oral Tablet [place] ([facility]) Oxybutynin chloride 5 MG Oral Tablet oxy butynin chloride 5 mg tablet TAKE ONE TABLET BY MOUTH TWICE A DAY oxybutynin chloride 5 mg tablet TAKE ONE TABLET BY MOUTH TWICE A DAY completed oxybutynin chloride 5 MG Oral Tablet [facility]) 24 HR venlafaxine 37.5 MG Extended Relea [...] MG Extended Release Oral Capsule [Effexor] [place] ([facility]) Naproxen 250 MG Oral Tablet naproxen 250 mg tablet TAKE ONE TABLET BY MOUTH TWICE A DAY NEEDED FOR PAIN naproxen 250 mg tablet TAKE ONE TABLET B Y MOUTH TWICE A DAY NEEDED FOR PAIN complet ed naproxen 250 MG Oral Tablet [place] ([facility]) pregabalin 100 MG Oral Capsule pregabali n 100 mg capsule TAKE ONE CAPSULE BY MOUTH THREE TIMES A DAY MAXIMUM DAILY DOSE 3 pregabalin 100 mg capsule TAKE ONE CAPSULE BY MOUTH THREE TIMES A DAY MAXIMUM DAILY DOSE 3 completed pregabalin 100 MG Oral Capsule [place] ([facility]) Hydroxyzine Hydrochloride 25 MG Oral Tab let hydroxyzine HCl 25 mg tablet TAKE ONE TABLET BY MOUTH THREE TIMES A DAY NEEDED FOR ANXIETY hydroxyzine HCl 25 mg tablet TAKE ONE TABLET BY MOUTH THREE TIMES A DAY NEEDED FOR ANXIETY completed hydroxyzine hydrochlor victoriano 25 MG Oral Tablet [place] ([facility]) 24 HR venlafaxine 37.5 [...] MG Extended Release Oral Capsule [Effexor] [place] ([facility]) 24 HR Nicotine 0.875 MG/HR Transdermal P atch nicotine 21 mg/24 [address] daily [address]dermal patch [address] 1 PATCH ONTO THE SKIN EVERY 24 HOURS nicotine 21 mg/[address] daily transdermal patch [address]ACE 1 PATCH ONTO THE SKIN EVERY 24 HOURS completed 24 HR nicotine 0.875 MG/HR T ransdermal System [place] ([facility]) duloxetine 60 MG Delayed Release Oral Ca psule duloxetine 60 mg capsule,delayed release duloxetine 60 mg capsule,delayed release completed duloxetine 60 MG Delayed Release Oral Capsule [place] ([facility]) Nystatin 100 UNT/MG Topical Powder nysta tin 100,000 unit/gram topical powder APPLY TOPICALLY TWO TIMES A DAY TO AFFECTED AREAS nystatin 100,000 unit/gram topical powder APPLY TOPICALLY TWO TIMES A DAY TO AFFECTED AREAS completed nystatin 100 UNT/MG Topical Powd er [facility] ([facility]) Nicotine 2 MG Chewing Gum nicotine (abad crilex) [address] [place] INSIDE CHEEK NEEDED FOR SMOKING CESSATION nicotine (polacrilex) [address] [place] INSIDE CHEEK NEEDED FOR SMOKING CESSATION completed nicotine 2 MG Chewing Gum [place] ([facility]) pregabalin 75 MG Oral Capsule pregabalin 75 mg capsule TAKE ONE CAPSULE BY MOUTH TWICE A DAY MAXIMUM DAILY DOSE 2 pregabalin 75 mg capsule TAKE ONE CAPSUL E BY MOUTH TWICE A DAY MAXIMUM DAILY DOSE 2 completed pregabalin 75 MG Oral Capsule [place] ([facility]) Ciprofloxacin 500 MG Oral Tablet ciprofloxacin 500 mg tablet ciprofloxacin 500 mg tablet completed ciprofloxaci n 500 MG Oral Tablet [place] ([facility]) cetirizine hydrochloride 10 MG Oral Tablet cetirizine 10 mg tablet cetirizine 10 mg tablet completed cetirizine hydrochloride 10 MG Oral Tablet [place] ([facility]) Nystatin [id number] UNT/ML Oral Suspension n ystatin 100,000 unit/mL oral suspension TAKE 5 ML BY MOUTH FOUR TIMES A DAY FOR 10 DAYS nystatin 100,000 unit/mL oral suspension TAKE 5 ML BY MOUTH FOUR TIMES A DAY FOR 10 DAYS completed nystatin [id number] UNT/ML Oral Susp ension [facility] ([facility]) Amoxicillin 875 MG / Clavulanate 125 MG Oral Tablet amoxicillin 875 mg-potassium clavulanate 125 mg tablet amoxicillin 875 mg-potassium clavulanate 125 mg tablet completed amoxici llin 875 MG / clavulanate 125 MG Oral Tablet [facility] ([facility]) Naproxen 250 MG Oral Tablet naproxen 250 mg tablet TAKE ONE TABLET BY MOUTH TWICE A DAY NEEDED FOR PAIN naproxen 250 mg tablet TAKE ONE TABLET B Y MOUTH TWICE A DAY NEEDED FOR PAIN complet ed naproxen 250 MG Oral Tablet [facility] ([facility]) topiramate 25 MG Oral Tablet topiramate 25 mg tablet topiramate 25 mg tablet completed topiramate 25 MG Oral Tablet [facility] ([facility]) fluticasone propionate 50 mcg/actuation nasal spray,suspension [id number] completed fluticasone propionate 0.05 MG/ACTUAT Metered Dose Nasal [facility] ([facility]) Amitriptyline Hydrochloride 25 MG Oral T ablet amitriptyline 25 mg tablet TAKE ONE TABLET BY MOUTH ONCE DAILY IN THE EVENING amitriptyline 25 mg tablet TAKE ONE TABLET BY MOUTH ONCE DAILY IN THE EVENING completed amitriptyline hydrochloride 25 MG Oral Tablet [facility] ([facility]) vitamin d3 25 mcg (1000 ut) tabs completed vitamin d3 25 mcg (1000 ut) tabs [facility] ([facility]) Fluconazole 150 MG Oral Tablet fluconazo le 150 mg tablet TAKE ONE TABLET BY MOUTH ON DAY 1 CAN REPEAT ON DAY 3 IF NOT RESOLVED fluconazole 150 mg tablet TAKE ONE TABLET BY MOUTH ON DAY 1 CAN REPEAT ON DAY 3 IF NOT RESOLVED completed fluconazole 150 MG Oral T ablet [facility] ([facility]) Naproxen sodium 220 MG Oral Tablet naproxen sodium 220 mg tablet naproxen sodium 220 mg tablet completed naproxe n sodium 220 MG Oral Tablet [facility] ([facility]) Nicotine 2 MG Chewing Gum nicotine (abad crilex) [address] [place] INSIDE CHEEK NEEDED FOR SMOKING CESSATION nicotine (polacrilex) [address] [place] INSIDE CHEEK NEEDED FOR SMOKING CESSATION completed nicotine 2 MG Chewing Gum [place] ([facility]) Amoxicillin 875 MG / Clavulanate 125 MG Oral Tablet amoxicillin 875 mg-potassium clavulanate 125 mg tablet amoxicillin 875 mg-potassium clavulanate 125 mg tablet completed amoxici llin 875 MG / clavulanate 125 MG Oral Tablet [facility] ([facility]) vitamin d3 50 mcg (1999 ut) tabs completed vitamin d3 50 mcg (1999 ut) tabs [facility] ([facility]) Naproxen sodium 220 MG Oral Tablet naproxen sodium 220 mg tablet naproxen sodium 220 mg tablet completed naproxe n sodium 220 MG Oral Tablet [facility] ([facility]) SULFAMETHOXAZOLE-TRIMETHOPRIM PO Oral aborted Take by mouth Two Times Daily [facility] cetirizine hydrochloride 10 MG Oral Tablet cetirizine 10 mg tablet cetirizine 10 mg tablet completed cetirizine hydrochloride 10 MG Oral Tablet [facility] ([facility]) 24 HR venlafaxine 37.5 [...] MG Extended Release Oral Capsule [Effexor] [facility] ([facility]) Levothyroxine Sodium 0.025 MG Oral Tablet levothyroxin e 25 mcg tablet levothyroxine 25 mcg tablet completed levothyroxine sodium 0.025 MG Oral Tablet [facility] ([facility]) Amoxicillin 875 MG / Clavulanate 125 MG Oral Tablet amoxicillin 875 mg-potassium clavulanate 125 mg tablet amoxicillin 875 mg-potassium clavulanate 125 mg tablet completed amoxici llin 875 MG / clavulanate 125 MG Oral Tablet [facility] ([facility]) Amoxicillin 875 MG / Clavulanate 125 MG Oral Tablet amoxicillin 875 mg-potassium clavulanate 125 mg tablet amoxicillin 875 mg-potassium clavulanate 125 mg tablet completed amoxici llin 875 MG / clavulanate 125 MG Oral Tablet [facility] ([facility]) Nystatin [id number] UNT/ML Oral Suspension n ystatin 100,000 unit/mL oral suspension TAKE 5 ML BY MOUTH FOUR TIMES A DAY FOR 10 DAYS nystatin 100,000 unit/mL oral suspension TAKE 5 ML BY MOUTH FOUR TIMES A DAY FOR 10 DAYS completed nystatin 497174 UNT/ML Oral Susp ension [facility] ([facility]) Phenazopyridine hydrochloride 200 MG Oral Tablet phena zopyridine 200 mg tablet phenazopyridine 200 mg tablet complete d phenazopyridine hydrochloride 200 MG Oral Tablet [facility] ([facility]) Phenazopyridine hydrochloride 200 MG Oral Tablet phena zopyridine 200 mg tablet phenazopyridine 200 mg tablet complete d phenazopyridine hydrochloride 200 MG Oral Tablet [facility] ([facility]) lidoc/m dry/[facility] SWISH AND SWALLOW 10 ML EVERY 4 HOURS NEEDED completed lidoc/m dry/[facility] ([facility]) Levothyroxine Sodium 0.025 MG Oral Tablet levothyroxin e 25 mcg tablet levothyroxine 25 mcg tablet completed levothyroxine sodium 0.025 MG Oral Tablet [place] ([facility]) Fluconazole 100 MG Oral Tablet fluconazo le 100 mg tablet TAKE ONE TABLET BY MOUTH EVERY DAY FOR YEAST INFECTION fluconazole 100 mg tablet TAKE ONE TABLE T BY MOUTH EVERY DAY FOR YEAST INFECTION c ompleted fluconazole 100 MG Oral Tablet [place] ([facility]) topiramate 50 MG Oral Tablet topiramate 50 mg tablet topiramate 50 mg tablet completed topiramate 50 MG Oral Tablet [place] ([facility]) Fluconazole 150 MG Oral Tablet fluconazo le 150 mg tablet TAKE 1 TABLET BY MOUTH FOR 1 DOSE fluconazole 150 mg tablet TAKE 1 TABLET BY MOUTH FOR 1 DOSE completed fluconazole 150 MG Oral T ablet [place] ([facility]) Phenazopyridine hydrochloride 200 MG Ora l Tablet phenazopyridine 200 mg tablet TAKE ONE TABLET BY MOUTH THREE TIMES A DAY FOR 2 DAYS phenazopyridine 200 mg tablet TAKE ONE TABLET BY MOUTH THREE TIMES A DAY FOR 2 DAYS completed phenazopyridine hydrochloride 20 0 MG Oral Tablet [place] ([facility]) duloxetine 60 MG Delayed Release Oral Ca psule duloxetine 60 mg capsule,delayed release duloxetine 60 mg capsule,delayed release completed duloxetine 60 MG Delayed Release Oral Capsule [place] ([facility]) vitamin d3 25 mcg (1000 ut) tabs completed vitamin d3 25 mcg (1000 ut) tabs [place] ([facility]) 24 HR Nicotine 0.875 MG/HR Transdermal P atch nicotine 21 mg/24 hr daily transdermal patch [address]ACE 1 PATCH ONTO THE SKIN EVERY 24 HOURS nicotine 21 mg/24 [address] daily transdermal patch [address]ACE 1 PATCH ONTO THE SKIN EVERY 24 HOURS completed 24 HR nicotine 0.875 MG/HR T ransdermal System [place] ([facility]) Nystatin [id number] UNT/ML Oral Suspension n ystatin 100,000 unit/mL oral suspension TAKE 5 ML BY MOUTH FOUR TIMES A DAY FOR 10 DAYS nystatin 100,000 unit/mL oral suspension TAKE 5 ML BY MOUTH FOUR TIMES A DAY FOR 10 DAYS completed nystatin 508691 UNT/ML Oral Susp ension [place] ([facility]) Ciprofloxacin 500 MG Oral Tablet ciprofloxacin 500 mg tablet ciprofloxacin 500 mg tablet completed ciprofloxaci n 500 MG Oral Tablet [place] ([facility]) Amitriptyline Hydrochloride 25 MG Oral T ablet amitriptyline 25 mg tablet TAKE ONE TABLET BY MOUTH ONCE DAILY IN THE EVENING amitriptyline 25 mg tablet TAKE ONE TABLET BY MOUTH ONCE DAILY IN THE EVENING completed amitriptyline hydrochloride 25 MG Oral Tablet [place] ([facility]) fluticasone propionate 50 mcg/actuation nasal spray,suspension [id number] completed fluticasone propionate 0.05 MG/ACTUAT Metered Dose Nasal [facility] [place] ([facility]) topiramate 25 MG Oral Tablet topiramate 25 mg tablet topiramate 25 mg tablet completed topiramate 25 MG Oral Tablet [place] ([facility]) tolterodine tartrate 2 MG Oral Tablet tolterodine 2 mg tablet tolterodine 2 mg tablet completed tolterodine tar trate 2 MG Oral Tablet [place] ([facility]) Phenazopyridine hydrochloride 200 MG Ora l Tablet phenazopyridine 200 mg tablet TAKE ONE TABLET BY MOUTH THREE TIMES A DAY FOR 2 DAYS phenazopyridine 200 mg tablet TAKE ONE TABLET BY MOUTH THREE TIMES A DAY FOR 2 DAYS completed phenazopyridine hydrochloride 20 0 MG Oral Tablet [place] ([facility]) Naproxen 250 MG Oral Tablet naproxen 250 mg tablet TAKE ONE TABLET BY MOUTH TWICE A DAY NEEDED FOR PAIN naproxen 250 mg tablet TAKE ONE TABLET B Y MOUTH TWICE A DAY NEEDED FOR PAIN complet ed naproxen 250 MG Oral Tablet [facility] er) Naproxen 500 MG Oral Tablet naproxen 500 mg tablet TAKE ONE TABLET BY MOUTH TWO TIMES A DAY naproxen 500 mg tablet TAKE ONE TABLET BY MOUTH TWO TIMES A DAY completed naproxen 500 MG Oral T ablet [place] ([facility]) Hydroxyzine Hydrochloride 25 MG Oral Tab let hydroxyzine HCl 25 mg tablet TAKE ONE TABLET BY MOUTH THREE TIMES A DAY NEEDED FOR ANXIETY hydroxyzine HCl 25 mg tablet TAKE ONE TABLET BY MOUTH THREE TIMES A DAY NEEDED FOR ANXIETY completed hydroxyzine hydrochlor victoriano 25 MG Oral Tablet [place] ([facility]) Nicotine 2 MG Chewing Gum nicotine (abad crilex) [address] [place] INSIDE CHEEK NEEDED FOR SMOKING CESSATION nicotine (polacrilex) [address] [place] INSIDE CHEEK NEEDED FOR SMOKING CESSATION completed nicotine 2 MG Chewing Gum [place] ([facility]) Nystatin 040107 UNT/ML Oral Suspension n ystatin 100,000 unit/mL oral suspension TAKE 5 ML BY MOUTH FOUR TIMES A DAY FOR 10 DAYS nystatin 100,000 unit/mL oral suspension TAKE 5 ML BY MOUTH FOUR TIMES A DAY FOR 10 DAYS completed nystatin 886321 UNT/ML Oral Susp ension [facility] ([facility]) Baclofen 10 MG Oral Tablet baclofen 10 mg tablet baclofen 10 mg tablet completed baclofen 10 MG Oral Table t [place] ([facility]) lidoc/m dry/[facility] SWISH AND SWALLOW 10 ML EVERY 4 HOURS NEEDED completed lidoc/m dry/[facility] [place] ([facility]) Nicotine 2 MG Chewing Gum nicotine (abad crilex) [address] [facility] [place] INSIDE CHEEK NEEDED FOR SMOKING CESSATION nicotine (polacrilex) [address] [facility] [place] INSIDE CHEEK NEEDED FOR SMOKING CESSATION completed nicotine 2 MG Chewing Gum [place] ([facility]) Sulfamethoxazole 800 MG / Trimethoprim 1 60 MG Oral Tablet sulfamethoxazole 800 mg-trimethoprim 160 mg tablet TAKE ONE TABLET BY MOUTH TWO TIMES PER DAY FOR 7 DAYS sulfamethoxazole 800 mg-trimethoprim 160 mg tablet TAKE ONE TABLET BY MOUTH TWO TIMES PER DAY FOR 7 DAYS complete d sulfamethoxazole 800 MG / trimethoprim 160 MG Oral Tablet [place] ([facility]) methylprednisolone 4 mg tablets in a dos e pack TAKE BY MOUTH PER PACKAGE INSTRUCTIONS [id number] completed me thylprednisolone 4 mg tablets in a dose pack [place] ([facility]) fluticasone propionate 50 mcg/actuation nasal spray,suspension [id number] completed fluticasone propionate 0.05 MG/ACTUAT Metered Dose Nasal [facility] [place] ([facility]) Naproxen sodium 220 MG Oral Tablet naproxen sodium 220 mg tablet naproxen sodium 220 mg tablet completed naproxe n sodium 220 MG Oral Tablet [place] ([facility]) vitamin d3 25 mcg (1000 ut) tabs completed vitamin d3 25 mcg (1000 ut) tabs [place] ([facility]) Amitriptyline Hydrochloride 25 MG Oral T ablet amitriptyline 25 mg tablet TAKE ONE TABLET BY MOUTH ONCE DAILY IN THE EVENING amitriptyline 25 mg tablet TAKE ONE TABLET BY MOUTH ONCE DAILY IN THE EVENING completed amitriptyline hydrochloride 25 MG Oral Tablet [place] ([facility]) Naproxen 250 MG Oral Tablet naproxen 250 mg tablet TAKE ONE TABLET BY MOUTH TWICE A DAY NEEDED FOR PAIN naproxen 250 mg tablet TAKE ONE TABLET B Y MOUTH TWICE A DAY NEEDED FOR PAIN complet ed naproxen 250 MG Oral Tablet [place] ([facility]) Nicotine 2 MG Chewing Gum nicotine (abad crilex) [address] [facility] [place] INSIDE CHEEK NEEDED FOR SMOKING CESSATION nicotine (polacrilex) [address] [facility] [place] INSIDE CHEEK NEEDED FOR SMOKING CESSATION completed nicotine 2 MG Chewing Gum [place] ([facility]) Loratadine 10 MG Oral Tablet loratadine 10 mg tablet loratadine 10 mg tablet completed loratadine 10 MG Oral Tablet [place] ([facility]) Hydrocortisone 25 MG/ML Topical Cream [P roctozone HC] Proctozone-HC 2.5 % topical cream perineal applicator Proctozone-HC 2.5 % topical cream perine al applicator completed hyd rocortisone 25 MG/ML Topical Cream [Proctozone HC] [place] ([facility]) Phenazopyridine hydrochloride 200 MG Ora l Tablet phenazopyridine 200 mg tablet TAKE ONE TABLET BY MOUTH THREE TIMES A DAY FOR 2 DAYS phenazopyridine 200 mg tablet TAKE ONE TABLET BY MOUTH THREE TIMES A DAY FOR 2 DAYS completed phenazopyridine hydrochloride 20 0 MG Oral Tablet [place] ([facility]) Naproxen 500 MG Oral Tablet naproxen 500 mg tablet TAKE ONE TABLET BY MOUTH TWO TIMES A DAY naproxen 500 mg tablet TAKE ONE TABLET BY MOUTH TWO TIMES A DAY completed naproxen 500 MG Oral T ablet [place] ([facility]) Naproxen sodium 220 MG Oral Tablet naproxen sodium 220 mg tablet naproxen sodium 220 mg tablet completed naproxen sodium 220 MG Oral Tablet [place] ([facility]) Ciprofloxacin 500 MG Oral Tablet ciprofloxacin 500 mg tablet ciprofloxacin 500 mg tablet completed ciprofloxaci n 500 MG Oral Tablet [facility]) Amoxicillin 875 MG / Clavulanate 125 MG Oral Tablet amoxicillin 875 mg-potassium clavulanate 125 mg tablet amoxicillin 875 mg-potassium clavulanate 125 mg tablet completed amoxicillin 875 MG / clavulanate 125 MG Oral Tablet [place] ([facility]) Baclofen 10 MG Oral Tablet baclofen 10 mg tablet baclofen 10 mg tablet completed baclofen 10 MG Oral Table t [place] ([facility]) pregabalin 75 MG Oral Capsule pregabalin 75 mg capsule TAKE ONE CAPSULE BY MOUTH TWICE A DAY MAXIMUM DAILY DOSE 2 pregabalin 75 mg capsule TAKE ONE CAPSUL E BY MOUTH TWICE A DAY MAXIMUM DAILY DOSE 2 completed pregabalin 75 MG Oral Capsule [place] ([facility]) duloxetine 60 MG Delayed Release Oral Ca psule duloxetine 60 mg capsule,delayed release duloxetine 60 mg capsule,delayed release completed duloxetine 60 MG Delayed Release Oral Capsule [place] ([facility]) cetirizine hydrochloride 10 MG Oral Tablet cetirizine 10 mg tablet cetirizine 10 mg tablet completed cetirizine h ydrochloride 10 MG Oral Tablet [place] ([facility]) Phenazopyridine hydrochloride 200 MG Ora l Tablet phenazopyridine 200 mg tablet TAKE ONE TABLET BY MOUTH THREE TIMES A DAY FOR 2 DAYS phenazopyridine 200 mg tablet TAKE ONE TABLET BY MOUTH THREE TIMES A DAY FOR 2 DAYS completed phenazopyridine hydrochloride 20 0 MG Oral Tablet [place] ([facility]) duloxetine 30 MG Delayed Release Oral Ca psule duloxetine 30 mg capsule,delayed release duloxetine 30 mg capsule,delayed release completed duloxetine 30 MG Delayed Release Oral Capsule [place] ([facility]) Baclofen 10 MG Oral Tablet baclofen 10 mg tablet baclofen 10 mg tablet completed baclofen 10 MG Oral Table t [place] ([facility]) fluticasone propionate 50 mcg/actuation nasal spray,suspension [id number] completed fluticasone propionate 0.05 MG/ACTUAT Metered Dose Nasal [facility] [place] ([facility]) duloxetine 30 MG Delayed Release Oral Ca psule duloxetine 30 mg capsule,delayed release duloxetine 30 mg capsule,delayed release completed duloxetine 30 MG Delayed Release Oral Capsule [place] ([facility]) Acyclovir 400 MG Oral Tablet acyclovir 400 mg tablet acyclovir 4 00 mg tablet completed acyclovir 400 MG Oral Tablet [place] ([facility]) Atropine Sulfate 0.025 MG / [...] diphenoxylate hydrochloride 2.5 MG Oral Tablet [facility] ([facility]) Oxybutynin chloride 5 MG Oral Tablet oxy butynin chloride 5 mg tablet TAKE ONE TABLET BY MOUTH TWICE A DAY oxybutynin chloride 5 mg tablet TAKE ONE TABLET BY MOUTH TWICE A DAY completed oxybutynin chloride 5 MG Oral Tablet [facility] ([facility]) Cephalexin 500 MG Oral Capsule cephalexi n 500 mg capsule TAKE ONE CAPSULE BY MOUTH TWICE A DAY FOR 10 DAYS cephalexin 500 mg capsule TAKE ONE CAPSU LE BY MOUTH TWICE A DAY FOR 10 DAYS complete d cephalexin 500 MG Oral Capsule [facility] ([facility]) Sulfamethoxazole 800 MG / Trimethoprim 1 60 MG Oral Tablet sulfamethoxazole 800 mg-trimethoprim 160 mg tablet TAKE ONE TABLET BY MOUTH TWO TIMES PER DAY FOR 7 DAYS sulfamethoxazole 800 mg-trimethoprim 160 mg tablet TAKE ONE TABLET BY MOUTH TWO TIMES PER DAY FOR 7 DAYS completed sulfamethoxazole 800 MG / trimethoprim 160 MG Oral Tablet [facility] ([facility]) Hydroxyzine Hydrochloride 25 MG Oral Tab let hydroxyzine HCl 25 mg tablet TAKE ONE TABLET BY MOUTH THREE TIMES A DAY NEEDED FOR ANXIETY hydroxyzine HCl 25 mg tablet TAKE ONE TABLET BY MOUTH THREE TIMES A DAY NEEDED FOR ANXIETY completed hydroxyzine hydrochlor victoriano 25 MG Oral Tablet [facility] ([facility]) Ketorolac Tromethamine 10 MG Oral Tablet ketorolac 10 mg tablet ketorolac 10 mg tablet completed ketorolac trome thamine 10 MG Oral Tablet [facility] ([facility]) topiramate 25 MG Oral Tablet topiramate 25 mg tablet topiramate 25 mg tablet completed topiramate 25 MG Oral Tablet [facility] ([facility]) Loratadine 10 MG Oral Tablet loratadine 10 mg tablet loratadine 10 mg tablet completed loratadine 10 MG Oral Tablet [facility] ([facility]) Insurance Providers Payer name Policy type / Coverage type Policy ID Covered libertarian ID Covered libertarian's relationship to carrera Policy Carrera Plan Information [employer] Compensation [id number] Self Managed Care - [facility] P [id number] S [id number] Medicaid S [id number] S [id number] [facility] MEDICAID [id number] S [id number] Managed Care - [facility] Community Plan P [id number] S [id number] Managed Care - [facility] P [id number] S [id number] Medicaid S [id number] S [id number] [facility] I [id number] Self [id number] [facility] I [id number] Self [id number] [facility] I [id number] Self [id number] [facility] Commercial [employer]. [id number] Self [id number] [facility] Commercial [id number] Self [id number] [facility] Plan-[facility] Commercial [id number] Self [id number] Managed Care - [facility] P [id number] S [id number] Medicaid S [id number] S [id number] [facility] [id number] [facility] [id number] ANSI-Medicaid [id number] ANSI-Medicaid [id number] ANSI-Medicaid [id number] [employer] COMMUNITY PLAN MCDHMO [id number] SP [id number] ANSI-Medicaid [id number] ANSI-Medicaid [id number] ANSI-Medicaid [id number] ANSI-Medicaid [id number] [employer] COMMUNITY PLAN MCDHMO [id number] SP [id number] [facility] [id number] SP [id number] MEDICAID [id number] SP [id number] [facility] [id number] SP [id number] [employer] COMMUNITY PLAN MCDHMO [id number] SP [id number] STATE INSURANCE FUND O [id number] S [id number] SELF PAY UNAVAILABLE SP UNAVAILA BLE STATE INSURANCE FUND UNAVAILABLE SP UNAVAILABLE STATE INSURANCE FUND O [id number] S [id number] SELF PAY O [id number] S [id number] MEDICAID M [id number] [employer] B [id number] S [id number] BCBS [employer] [facility] [id number]/803 [id number] SP [id number] [facility] [id number] SP [id number] [employer] COMMUNITY PLAN MCDHMO [id number] SP [id number] [facility] COMMUNITY PLAN MCDHMO [id number] SP [id number] [facility] COMMUNITY PLAN MCDHMO [id number] SP [id number] [facility](MCAID) O [id number] S [id number] Managed Care - [facility] Community Plan S [id number] S [id number] [facility] MEDICAID [id number] S [id number] [facility](MCAID) O [id number] S [id number] [facility] [id number] SP [id number] [facility] O [id number] S [id number] [facility] UNAVAILABLE [id number] S UNAVAILABLE MEDICAID [id number] SP [id number] [facility] COMMUNITY PLAN MCDO [id number] SP [id number] Problems, Conditions, and Diagnoses Code Display Name Description Problem Type Effective Dates Data Source(s) ct sim ct sim Diagnosis 05/21/2021 07:53:14 AM ED [facility] follow up follow up Diagnosis 12/27/2020 10:04:26 AM ED [facility] Z79.899 Other mcfp (current) drug therapy O ther continuous churn buttermaker (current) drug therapy Diagnosis 12/13/2020 01:15:00 PM EDT [facility] Z51.81 Encounter for therapeutic drug level mon itoring Encounter for therapeutic drug level monitoring Diagnosis 12/13/2020 01:15:[address] [facility] K83.8 Other specified diseases of biliary trac t Other specified diseases of biliary tract Diagnosis 10/25/2020 09:15:54 AM T [facility] 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 Diagnosis 10/03/2020 09:35:55 AM [facility] Z17.0 Estrogen receptor positive status [ER+] Estrogen receptor positive status (ER+) Diagnosis 10/02/2020 02:21:03 PM [facility] C50.812 Malignant neoplasm of overlapping sites of left female breast Malignant neoplasm of overlapping sites of left female breast Diagnosis 02:21:03 PM [facility] breast cancer breast cancer Diagnosis 10/02/2020 05:39:00 AM [facility] F54 Psychological and behavioral factors associated with disorders or diseases classified elsewhere Psychological and behavioral factors ass ociated with disorders or diseases classified elsewhere Diagnosis 09/17/2020 08:09: 10 AM [facility] 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 gastroen teritis and colitis Diagnosis 06/27/2020 08:32:33 AM [facility] R91.8 Other nonspecific abnormal finding of tavon ng field Other nonspecific abnormal finding of lung field Diagnosis 05/21/2020 11:37:26 PM EDT [facility] Z51.11 Encounter for antineoplastic chemotherap y Encounter for antineoplastic chemotherapy Diagnosis 05/21/2020 11:37:25 PM EDT [facility] G62.9 Polyneuropathy, unspecified Polyneuropathy, unspecifie d Diagnosis 05/21/2020 11:37:24 PM EDT [facility] [id number] History of opioid abuse History of Opioid Abuse Pro blem 06/11/2021 12:00:00 AM EDT [facility] ([facility] er) [id number] Multiple nodules of lung Multiple Nodules of Lung Prob geovani 06/11/2021 12:00:00 AM EDT [place] ([facility]) C50.812 Malignant neoplasm of female breast Liss gnant neoplasm of overlapping sites of left female breast Problem 05/27/2021 12:00:00 AM EDT eCW1 ([facility]) L98.492 [id number] Non-pressure chronic ulcer of skin of other sites with fat layer exposed Problem 01/01/2021 12:00:00 AM EDT eCW1 ([facility]) T81.31XD [id number] Disruption of dag sprayer al operation (surgical) wound, not elsewhere classified, subsequent encounter Problem 12/12/2020 12:00: 00 AM EDT eCW1 ([facility]) T81.30XA [id number] Wound dehiscence Problem 12/09/2020 12:00:00 AM EDT eCW1 ([facility]) S21.009A [id number] Open breast wound Problem 12/09/2020 12:00:0 0 AM EDT eCW1 ([facility]) C50.812 Malignant neoplasm of overlapping sites of left female breast Malignant neoplasm of overlapping sites of left female breast Problem 12:00:00 AM EST NETSMART ([facility] ) G62.9 Polyneuropathy, unspecified Polyneuropathy, unspecifie d Problem 10/07/2020 12:00:00 AM EST [facility] ([facility] ) F32.9 Major depressive disorder, single episod e, unspecified Major depressive disorder, single episode, unspecified Problem 10/07/2020 12:00:00 AM EST [facility] ([facility]) F17.210 Nicotine dependence, cigarettes, uncompl icated Nicotine dependence, cigarettes, uncomplicated Problem 10/07/2020 12:00:00 AM EST NETSMAR T ([facility]) Z48.01 Encounter for change or removal of surgi tony wound dressing Encounter for change or removal of surgical wound dressing Problem 10/07/2020 12:0 0:00 AM EST [facility] ([facility]) 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 Problem 10/07/2020 12:00:00 AM EST [facility]SMART ([facility]) Z17.0 Estrogen receptor positive status [ER+] Estrogen receptor positive status [ER+] Problem 10/07/2020 12:00:00 AM EST [facility] ([facility]) 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 Problem 10/07/2020 12:00:00 AM EST [facility] ([facility]) Z91.81 History of falling History of falling Problem 12:00:00 AM EST [facility] ([facility]) Z48.3 Aftercare following surgery for neoplasm Aftercare following surgery for neoplasm Problem 10/07/2020 12:00:00 AM EST [facility] ([facility]) C50.919 Malignant neoplasm of unspecified site o f unspecified female breast Malignant neoplasm of unspecified site of unspecified female breast Problem 10/02/2020 12:00:00 AM EST [facility]SM[facility] ([facility] ) [id number] Glaucoma Glaucoma Problem 09/24/2020 12:0 0:00 AM EST - 06/11/2021 12:00:00 AM KUNAL COBB ([facility]) [id number] Glaucoma Glaucoma Problem 09/24/2020 12:00:00 AM ES T [facility] ([facility]) [id number] Glaucoma Glaucoma Problem 09/24/2020 12:00:00 AM ES T [facility] ([facility]) [id number] Glaucoma Glaucoma Problem 09/24/2020 12:00:00 AM ES T [facility] ([facility]) [id number] Glaucoma Glaucoma Problem 09/24/2020 12:00:00 AM ES T [facility] ([facility]) [id number] Glaucoma Glaucoma Problem 09/24/2020 12:00:00 AM ES T [facility] ([facility]) [id number] Glaucoma Glaucoma Problem 09/24/2020 12:00:00 AM ES T [facility] ([facility]) [id number] Glaucoma Glaucoma Problem 09/24/2020 12:00:00 AM ES T [facility] ([facility]) [id number] Glaucoma Glaucoma Problem 09/24/2020 12:00:00 AM ES T [facility] ([facility]) [id number] Glaucoma Glaucoma Problem 09/24/2020 12:00:00 AM ES T [facility] ([facility]) [id number] Clinical finding Clinical Finding Problem 12:00:00 AM EDT - 09/16/2020 12:00:00 AM EST [facility] ([facility]) [id number] Clinical finding Clinical Finding Problem 12:00:00 AM EDT - 09/16/2020 12:00:00 AM EST [facility] ([facility]) [id number] Clinical finding Clinical Finding Problem 12:00:00 AM EDT - 09/16/2020 12:00:00 AM EST [facility] ([facility]) [id number] Clinical finding Clinical Finding Problem 12:00:00 AM EDT - 09/16/2020 12:00:00 AM EST [facility] ([facility]) [id number] Clinical finding Clinical Finding Problem 12:00:00 AM EDT - 09/16/2020 12:00:00 AM EST [facility] ([facility]) [id number] Clinical finding Clinical Finding Problem 12:00:00 AM EDT - 09/16/2020 12:00:00 AM EST [facility] ([facility]) [id number] Clinical finding Clinical Finding Problem 12:00:00 AM EDT - 09/16/2020 12:00:00 AM EST [facility] ([facility]) [id number] Clinical finding Clinical Finding Problem 12:00:00 AM EDT - 09/16/2020 12:00:00 AM EST [facility] ([facility]) [id number] Clinical finding Clinical Finding Problem 12:00:00 AM EDT - 09/16/2020 12:00:00 AM EST [facility] ([facility]) [id number] Clinical finding Clinical Finding Problem 12:00:00 AM EDT - 09/16/2020 12:00:00 AM EST [facility] ([facility]) [id number] Procedure by method Procedure by Method Problem 0 01/23/2019 12:00:00 AM EDT - 07/29/2020 12:00:00 AM EST [facility] ([facility]) [id number] Chest pain Chest Pain Problem 01/23/2019 12:0 0:00 AM EDT - 09/24/2020 12:00:00 AM EST [facility] ([facility]) [id number] Procedure by method Procedure by Method Problem 0 01/23/2019 12:00:00 AM EDT - 07/29/2020 12:00:00 AM EST [facility] ([facility]) [id number] Chest pain Chest Pain Problem 01/23/2019 12:0 0:00 AM EDT - 09/24/2020 12:00:00 AM EST [facility] ([facility]) [id number] Procedure by method Procedure by Method Problem 0 01/23/2019 12:00:00 AM EDT - 07/29/2020 12:00:00 AM EST [facility] ([facility]) [id number] Chest pain Chest Pain Problem 01/23/2019 12:0 0:00 AM EDT - 09/24/2020 12:00:00 AM EST [facility] ([facility]) [id number] Procedure by method Procedure by Method Problem 0 01/23/2019 12:00:00 AM EDT - 07/29/2020 12:00:00 AM EST [facility] ([facility]) [id number] Chest pain Chest Pain Problem 01/23/2019 12:0 0:00 AM EDT - 09/24/2020 12:00:00 AM EST [facility] ([facility]) [id number] Procedure by method Procedure by Method Problem 0 01/23/2019 12:00:00 AM EDT - 07/29/2020 12:00:00 AM EST [facility] ([facility]) [id number] Chest pain Chest Pain Problem 01/23/2019 12:0 0:00 AM EDT - 09/24/2020 12:00:00 AM EST [facility] ([facility]) [id number] Procedure by method Procedure by Method Problem 0 01/23/2019 12:00:00 AM EDT - 07/29/2020 12:00:00 AM EST [facility] ([facility]) [id number] Chest pain Chest Pain Problem 01/23/2019 12:0 0:00 AM EDT - 09/24/2020 12:00:00 AM EST [facility] ([facility]) [id number] Procedure by method Procedure by Method Problem 0 01/23/2019 12:00:00 AM EDT - 07/29/2020 12:00:00 AM EST [facility] ([facility]) [id number] Chest pain Chest Pain Problem 01/23/2019 12:0 0:00 AM EDT - 09/24/2020 12:00:00 AM EST [facility] ([facility]) [id number] Procedure by method Procedure by Method Problem 0 01/23/2019 12:00:00 AM EDT - 07/29/2020 12:00:00 AM EST [facility] ([facility]) [id number] Chest pain Chest Pain Problem 01/23/2019 12:0 0:00 AM EDT - 09/24/2020 12:00:00 AM EST [facility] ([facility]) [id number] Procedure by method Procedure by Method Problem 0 01/23/2019 12:00:00 AM EDT - 07/29/2020 12:00:00 AM EST [facility] ([facility]) [id number] Chest pain Chest Pain Problem 01/23/2019 12:0 0:00 AM EDT - 09/24/2020 12:00:00 AM EST REZA ([facility] er) [id number] Procedure by method Procedure by Method Problem 0 01/23/2019 12:00:00 AM EDT - 07/29/2020 12:00:00 AM EST REZA ([facility] er) [id number] Procedure by method Procedure by Method Problem 0 01/23/2019 12:00:00 AM EDT - 07/29/2020 12:00:00 AM EST REZA ([facility] er) [id number] Chest pain Chest Pain Problem 01/23/2019 12:0 0:00 AM EDT - 09/24/2020 12:00:00 AM EST REZA ([facility] er) [id number] Syphilis test finding Syphilis Test Finding Problem 01/13/2019 12:00:00 AM EDT - 07/29/2020 12:00:00 AM EST REZA ([facility]) [id number] Acute vaginitis Acute Vaginitis Problem 9 12:00:00 AM EDT - 07/29/2020 12:00:00 AM EST REZA ([facility]) [id number] Syphilis test finding Syphilis Test Finding Problem 01/13/2019 12:00:00 AM EDT - 07/29/2020 12:00:00 AM EST REZA ([facility]) [id number] Acute vaginitis Acute Vaginitis Problem 9 12:00:00 AM EDT - 07/29/2020 12:00:00 AM EST REZA ([facility]) [id number] Syphilis test finding Syphilis Test Finding Problem 01/13/2019 12:00:00 AM EDT - 07/29/2020 12:00:00 AM EST REZA ([facility]) [id number] Acute vaginitis Acute Vaginitis Problem 9 12:00:00 AM EDT - 07/29/2020 12:00:00 AM EST REZA ([facility]) [id number] Syphilis test finding Syphilis Test Finding Problem 01/13/2019 12:00:00 AM EDT - 07/29/2020 12:00:00 AM EST REZA ([facility]) [id number] Acute vaginitis Acute Vaginitis Problem 9 12:00:00 AM EDT - 07/29/2020 12:00:00 AM EST REZA ([facility]) [id number] Syphilis test finding Syphilis Test Finding Problem 01/13/2019 12:00:00 AM EDT - 07/29/2020 12:00:00 AM EST REZA ([facility]) [id number] Acute vaginitis Acute Vaginitis Problem 9 12:00:00 AM EDT - 07/29/2020 12:00:00 AM EST REZA ([facility]) [id number] Syphilis test finding Syphilis Test Finding Problem 01/13/2019 12:00:00 AM EDT - 07/29/2020 12:00:00 AM EST REZA ([facility]) [id number] Acute vaginitis Acute Vaginitis Problem 9 12:00:00 AM EDT - 07/29/2020 12:00:00 AM EST REZA ([facility]) [id number] Syphilis test finding Syphilis Test Finding Problem 01/13/2019 12:00:00 AM EDT - 07/29/2020 12:00:00 AM EST REZA ([facility]) [id number] Acute vaginitis Acute Vaginitis Problem 9 12:00:00 AM EDT - 07/29/2020 12:00:00 AM EST REZA ([facility]) [id number] Syphilis test finding Syphilis Test Finding Problem 01/13/2019 12:00:00 AM EDT - 07/29/2020 12:00:00 AM EST REZA ([facility]) [id number] Acute vaginitis Acute Vaginitis Problem 9 12:00:00 AM EDT - 07/29/2020 12:00:00 AM EST REZA ([facility]) [id number] Syphilis test finding Syphilis Test Finding Problem 01/13/2019 12:00:00 AM EDT - 07/29/2020 12:00:00 AM EST REZA ([facility]) [id number] Acute vaginitis Acute Vaginitis Problem 9 12:00:00 AM EDT - 07/29/2020 12:00:00 AM EST REZA ([facility]) [id number] Syphilis test finding Syphilis Test Finding Problem 01/13/2019 12:00:00 AM EDT - 07/29/2020 12:00:00 AM EST REZA ([facility]) [id number] Acute vaginitis Acute Vaginitis Problem 9 12:00:00 AM EDT - 07/29/2020 12:00:00 AM EST REZA ([facility]) [id number] Syphilis test finding Syphilis Test Finding Problem 01/13/2019 12:00:00 AM EDT - 07/29/2020 12:00:00 AM EST REZA ([facility]) [id number] Acute vaginitis Acute Vaginitis Problem 9 12:00:00 AM EDT - 07/29/2020 12:00:00 AM EST REZA ([facility]) [id number] Screening procedure Screening Procedure Problem 0 12/27/2018 12:00:00 AM EDT - 07/29/2020 12:00:00 AM EST REZA ([facility]) [id number] Breast neoplasm screening status Breast Neoplasm Screening Status Problem 12/27/2018 12:00:00 AM EDT - 07/29/2020 12:00:00 AM BANDAR Silveira REZA ([facility]) [id number] Endocrine/metabolic screening Endocrine/metabolic Scre ening Problem 12/27/2018 12:00:00 AM EDT - 07/29/2020 12:00:00 AM DODIE COBB ([facility]) [id number] Acute cystitis Acute Cystitis Problem 12/27/2018 12:00:00 AM EDT - 07/29/2020 12:00:00 AM EST REZA ([facility]) [id number] Screening procedure Screening Procedure Problem 0 12/27/2018 12:00:00 AM EDT - 07/29/2020 12:00:00 AM EST REZA ([facility]) [id number] Breast neoplasm screening status Breast Neoplasm Screening Status Problem 12/27/2018 12:00:00 AM EDT - 07/29/2020 12:00:00 AM BANDAR COBB ([facility]) [id number] Endocrine/metabolic screening Endocrine/metabolic Scre ening Problem 12/27/2018 12:00:00 AM EDT - 07/29/2020 12:00:00 AM EST REZA ([facility]) [id number] Acute cystitis Acute Cystitis Problem 12/27/2018 12:00:00 AM EDT - 07/29/2020 12:00:00 AM EST REZA ([facility]) [id number] Screening procedure Screening Procedure Problem 0 12/27/2018 12:00:00 AM EDT - 07/29/2020 12:00:00 AM EST REZA ([facility]) [id number] Breast neoplasm screening status Breast Neoplasm Screening Status Problem 12/27/2018 12:00:00 AM EDT - 07/29/2020 12:00:00 AM BANDAR Jordana COBB ([facility]) [id number] Endocrine/metabolic screening Endocrine/metabolic Scre ening Problem 12/27/2018 12:00:00 AM EDT - 07/29/2020 12:00:00 AM DODIE REZA ([facility]) [id number] Acute cystitis Acute Cystitis Problem 12/27/2018 12:00:00 AM EDT - 07/29/2020 12:00:00 AM EST REZA ([facility]) [id number] Screening procedure Screening Procedure Problem 0 12/27/2018 12:00:00 AM EDT - 07/29/2020 12:00:00 AM EST REZA ([facility]) [id number] Breast neoplasm screening status Breast Neoplasm Screening Status Problem 12/27/2018 12:00:00 AM EDT - 07/29/2020 12:00:00 AM BANDAR Jordana NUNEZREZA ([facility]) [id number] Endocrine/metabolic screening Endocrine/metabolic Scre ening Problem 12/27/2018 12:00:00 AM EDT - 07/29/2020 12:00:00 AM EST REZA ([facility]) [id number] Acute cystitis Acute Cystitis Problem 12/27/2018 12:00:00 AM EDT - 07/29/2020 12:00:00 AM EST RZEA ([facility]) [id number] Acute cystitis Acute Cystitis Problem 12/27/2018 12:00:00 AM EDT - 07/29/2020 12:00:00 AM EST REZA ([facility]) [id number] Screening procedure Screening Procedure Problem 0 12/27/2018 12:00:00 AM EDT - 07/29/2020 12:00:00 AM EST REZA ([facility]) [id number] Breast neoplasm screening status Breast Neoplasm Screening Status Problem 12/27/2018 12:00:00 AM EDT - 07/29/2020 12:00:00 AM BANDAR COBB ([facility]) [id number] Endocrine/metabolic screening Endocrine/metabolic Scre ening Problem 12/27/2018 12:00:00 AM EDT - 07/29/2020 12:00:00 AM EST REZA ([facility]) [id number] Acute cystitis Acute Cystitis Problem 12/27/2018 12:00:00 AM EDT - 07/29/2020 12:00:00 AM EST REZA ([facility]) [id number] Screening procedure Screening Procedure Problem 0 12/27/2018 12:00:00 AM EDT - 07/29/2020 12:00:00 AM EST REZA ([facility]) [id number] Breast neoplasm screening status Breast Neoplasm Screening Status Problem 12/27/2018 12:00:00 AM EDT - 07/29/2020 12:00:00 AM BANDAR COBB ([facility]) [id number] Endocrine/metabolic screening Endocrine/metabolic Scre ening Problem 12/27/2018 12:00:00 AM EDT - 07/29/2020 12:00:00 AM EST REZA ([facility]) [id number] Acute cystitis Acute Cystitis Problem 12/27/2018 12:00:00 AM EDT - 07/29/2020 12:00:00 AM EST REZA ([facility]) [id number] Screening procedure Screening Procedure Problem 0 12/27/2018 12:00:00 AM EDT - 07/29/2020 12:00:00 AM EST REZA ([facility]) [id number] Breast neoplasm screening status Breast Neoplasm Screening Status Problem 12/27/2018 12:00:00 AM EDT - 07/29/2020 12:00:00 AM ES Jordana COBB ([facility]) [id number] Endocrine/metabolic screening Endocrine/metabolic Scre ening Problem 12/27/2018 12:00:00 AM EDT - 07/29/2020 12:00:00 AM EST REZA ([facility]) [id number] Acute cystitis Acute Cystitis Problem 12/27/2018 12:00:00 AM EDT - 07/29/2020 12:00:00 AM EST REZA ([facility]) [id number] Screening procedure Screening Procedure Problem 0 12/27/2018 12:00:00 AM EDT - 07/29/2020 12:00:00 AM EST REZA ([facility]) [id number] Breast neoplasm screening status Breast Neoplasm Screening Status Problem 12/27/2018 12:00:00 AM EDT - 07/29/2020 12:00:00 AM BANDAR COBB ([facility]) [id number] Endocrine/metabolic screening Endocrine/metabolic Scre ening Problem 12/27/2018 12:00:00 AM EDT - 07/29/2020 12:00:00 AM EST REZA ([facility]) [id number] Acute cystitis Acute Cystitis Problem 12/27/2018 12:00:00 AM EDT - 07/29/2020 12:00:00 AM EST REZA ([facility]) [id number] Screening procedure Screening Procedure Problem 0 12/27/2018 12:00:00 AM EDT - 07/29/2020 12:00:00 AM EST REZA ([facility]) [id number] Breast neoplasm screening status Breast Neoplasm Screening Status Problem 12/27/2018 12:00:00 AM EDT - 07/29/2020 12:00:00 AM BANDAR COBB ([facility]) [id number] Endocrine/metabolic screening Endocrine/metabolic Scre ening Problem 12/27/2018 12:00:00 AM EDT - 07/29/2020 12:00:00 AM EST REZA ([facility]) [id number] Acute cystitis Acute Cystitis Problem 12/27/2018 12:00:00 AM EDT - 07/29/2020 12:00:00 AM EST REZA ([facility]) [id number] Screening procedure Screening Procedure Problem 0 12/27/2018 12:00:00 AM EDT - 07/29/2020 12:00:00 AM EST REZA ([facility]) [id number] Breast neoplasm screening status Breast Neoplasm Screening Status Problem 12/27/2018 12:00:00 AM EDT - 07/29/2020 12:00:00 AM BANDAR COBB ([facility]) [id number] Endocrine/metabolic screening Endocrine/metabolic Scre ening Problem 12/27/2018 12:00:00 AM EDT - 07/29/2020 12:00:00 AM EST REZA ([facility]) [id number] Acute cystitis Acute Cystitis Problem 12/27/2018 12:00:00 AM EDT - 07/29/2020 12:00:00 AM EST REZA ([facility]) [id number] Screening procedure Screening Procedure Problem 0 12/27/2018 12:00:00 AM EDT - 07/29/2020 12:00:00 AM EST REZA ([facility]) [id number] Breast neoplasm screening status Breast Neoplasm Screening Status Problem 12/27/2018 12:00:00 AM EDT - 07/29/2020 12:00:00 AM BANDAR COBB ([facility]) [id number] Endocrine/metabolic screening Endocrine/metabolic Scre ening Problem 12/27/2018 12:00:00 AM EDT - 07/29/2020 12:00:00 AM EST REZA ([facility]) Surgeries/Procedures Procedure Description Date Indications Data Source(s) FINE NEEDLE ASPIRATION W/O IMAGING GUIDANCE 07/10/2021 12:00:00 AM EST eCW1 ([facility]) FINE NEEDLE ASPIRATION W/O IMAGING GUIDANCE 06/19/2021 12:00:00 AM EST eCW1 ([facility]) Medication: Santyl 250unit/G ointment to wound bed 06/19/2021 12:00:00 AM EST eCW1 ([facility]) OFFICE OUTPATIENT VISIT 25 MINUTES 04/25/2021 12:00:00 AM EDT MEDENT ([facility]) TOBACCO USE CESSATION INTERMEDIATE 3-10 MINUTES 2020 12:00:00 AM EDT MEDENT ([facility]) ESTRADIOL <td>ESTRADIOL GENERATION 3 > =12YO</td><td>Routine</td><td>04/02/2021 11:22 AM EDT</td><td></td><td> </td> 04/02/2021 11:22:00 AM EDT [facility] BLOOD COUNT COMPLETE AUTO&AUTO DIFRNTL WBC COUNT <td>C BC AND DIFFERENTIAL</td><td>STAT</td><td>04/02/2021 11:22 AM EDT</td><td> Malignant neoplasm of overlapping sites of left breast in female, estrogen receptor positive</td><td> </td> 04/02/2021 11:22:00 AM EDT Malignant neoplasm of overlapping sites of left breast in female, estrogen receptor positive [facility] Malignant neoplasm of overlapping sites of left breast in female, estrogen receptor positive GONADOTROPIN FOLLICLE STIMULATING HORMONE <td>FOLLICLE STIMULATING HORMONE</td><td>Routine</td><td>04/02/2021 11:22 AM EDT</td><td></td><td> </td> 04/02/2021 11:22:00 AM EDT [facility] COMPREHENSIVE METABOLIC PANEL <td>COMPREHENSIVE METABO LIC PANEL</td><td>STAT</td><td>04/02/2021 11:22 AM EDT</td><td> Malignant neoplasm of overlapping sites of left breast in female, estrogen receptor positive</td><td> </td> 04/02/2021 11:22:00 AM EDT Malignant neoplasm of overlapping sites of left breast in female, estrogen receptor positive [facility] Malignant neoplasm of overlapping sites of left breast in female, estrogen receptor positive CARD BLOOD POOL GATED PLANAR 1 STUDY REST/STRESS <td>N M [place] [id number]</td><td>Routine</td><td>02/18/2021 3:00 PM EDT</td><td> Malignant neoplasm of overlapping sites of left breast in female, estrogen receptor positive</td><td> </td> 02/18/2021 03:00:00 PM EDT Malignant neoplasm of overlapping sites of left breast in female, estrogen receptor positive [facility] Malignant neoplasm of overlapping sites of left breast in female, estrogen receptor positive FINE NEEDLE ASPIRATION W/O IMAGING GUIDANCE 12/31/2020 12:00:00 AM EDT eCW1 ([facility]) FINE NEEDLE ASPIRATION W/O IMAGING GUIDANCE 12/24/2020 12:00:00 AM EDT eCW1 ([facility]) FINE NEEDLE ASPIRATION W/O IMAGING GUIDANCE 12/17/2020 12:00:00 AM EDT eCW1 ([facility]) ECHO TTHRC R-T 2D W/WOM-MODE COMPL SPEC&COLR DOP <td>E CHOCARDIOGRAM 2D COMPLETE</td><td>Routine</td><td>12/13/2020 1:46 PM EDT</td><td> Encounter for monitoring cardiotoxic drug therapy</td><td> </td> 12/13/2020 01:46:02 PM EDT Encounter for monitoring cardiotoxic drug therapy [facility] Encounter for monitoring cardiotoxic danette g therapy FINE NEEDLE ASPIRATION W/O IMAGING GUIDANCE 12/03/2020 12:00:00 AM EDT eCW1 ([facility]) BLOOD COUNT COMPLETE AUTO&AUTO DIFRNTL WBC COUNT <td>C BC AND DIFFERENTIAL</td><td>STAT</td><td>11/28/2020 10:25 AM EDT</td><td> Malignant neoplasm of left breast in female, estrogen receptor positive, unspecified site of breast</td><td> </td> 11/28/2020 10:25:00 AM EDT Malignant neoplasm of left breast in fem sharonda, estrogen receptor positive, unspecified site of breast [facility] Malignant neoplasm of left breast in fem sharonda, estrogen receptor positive, unspecified site of breast COMPREHENSIVE METABOLIC PANEL <td>COMPREHENSIVE METABO LIC PANEL</td><td>STAT</td><td>11/28/2020 10:25 AM EDT</td><td> Malignant neoplasm of left breast in female, estrogen receptor positive, unspecified site of breast</td><td> </td> 11/28/2020 10:25:00 AM EDT Malignant neoplasm of left breast in fem sharonda, estrogen receptor positive, unspecified site of breast [facility] Malignant neoplasm of left breast in fem sharonda, estrogen receptor positive, unspecified site of breast Mastectomy 10/02/2020 12:00:00 AM EST A THENA ([facility]) Mastectomy 10/02/2020 12:00:00 AM EST A THENA ([facility]) Mastectomy 10/02/2020 12:00:00 AM EST A THENA ([facility]) CT ABDOEN & PELVIS W/CONTRAST MATERIAL <td>CT ABDOMEN PELVIS WITH CONTRAST [id number]</td><td>Routine</td><td>09/16/2020 5:27 PM EST</td><td> Malignant neoplasm of left breast in female, estrogen receptor positive, unspecified site of breast</td><td> </td> 09/16/2020 05:27:07 PM EST Malignant neoplasm of left breast in fem sharonda, estrogen receptor positive, unspecified site of breast [facility] Malignant neoplasm of left breast in fem sharonda, estrogen receptor positive, unspecified site of breast BLOOD COUNT COMPLETE AUTO&AUTO DIFRNTL WBC COUNT <td>C BC AND DIFFERENTIAL</td><td>STAT</td><td>09/04/2020 9:45 AM EST</td><td> Malignant neoplasm of left breast in female, estrogen receptor positive, unspecified site of breast</td><td> </td> 09/04/2020 09:45:00 AM EST Malignant neoplasm of left breast in fem sharonda, estrogen receptor positive, unspecified site of breast [facility] Malignant neoplasm of left breast in fem sharonda, estrogen receptor positive, unspecified site of breast COMPREHENSIVE METABOLIC PANEL <td>COMPREHENSIVE METABO LIC PANEL</td><td>STAT</td><td>09/04/2020 9:45 AM EST</td><td> Malignant neoplasm of left breast in female, estrogen receptor positive, unspecified site of breast</td><td> </td> 09/04/2020 09:45:00 AM EST Malignant neoplasm of left breast in fem sharonda, estrogen receptor positive, unspecified site of breast [facility] Malignant neoplasm of left breast in fem sharonda, estrogen receptor positive, unspecified site of breast BLOOD COUNT COMPLETE AUTO&AUTO DIFRNTL WBC COUNT <td>C BC AND DIFFERENTIAL</td><td>STAT</td><td>08/08/2020 9:35 AM EST</td><td> Malignant neoplasm of left breast in female, estrogen receptor positive, unspecified site of breast</td><td> </td> 08/08/2020 09:35:00 AM EST Malignant neoplasm of left breast in fem sharonda, estrogen receptor positive, unspecified site of breast [facility] Malignant neoplasm of left breast in fem sharonda, estrogen receptor positive, unspecified site of breast COMPREHENSIVE METABOLIC PANEL <td>COMPREHENSIVE METABO LIC PANEL</td><td>STAT</td><td>08/08/2020 9:35 AM EST</td><td> Malignant neoplasm of left breast in female, estrogen receptor positive, unspecified site of breast</td><td> </td> 08/08/2020 09:35:00 AM EST Malignant neoplasm of left breast in fem sharonda, estrogen receptor positive, unspecified site of breast [facility] Malignant neoplasm of left breast in fem sharonda, estrogen receptor positive, unspecified site of breast BLOOD COUNT COMPLETE AUTO&AUTO DIFRNTL WBC COUNT <td>C BC AND DIFFERENTIAL</td><td>STAT</td><td>07/18/2020 9:10 AM EST</td><td> Malignant neoplasm of left breast in female, estrogen receptor positive, unspecified site of breast</td><td> </td> 07/18/2020 09:10:00 AM EST Malignant neoplasm of left breast in fem sharonda, estrogen receptor positive, unspecified site of breast [facility] Malignant neoplasm of left breast in fem sharonda, estrogen receptor positive, unspecified site of breast COMPREHENSIVE METABOLIC PANEL <td>COMPREHENSIVE METABO LIC PANEL</td><td>STAT</td><td>07/18/2020 9:10 AM EST</td><td> Malignant neoplasm of left breast in female, estrogen receptor positive, unspecified site of breast</td><td> </td> 07/18/2020 09:10:00 AM EST Malignant neoplasm of left breast in fem sharonda, estrogen receptor positive, unspecified site of breast [facility] Malignant neoplasm of left breast in fem sharonda, estrogen receptor positive, unspecified site of breast BLOOD COUNT COMPLETE AUTO&AUTO DIFRNTL WBC COUNT <td>C BC AND DIFFERENTIAL</td><td>STAT</td><td>06/27/2020 8:45 AM EST</td><td> Malignant neoplasm of left breast in female, estrogen receptor positive, unspecified site of breast</td><td> </td> 06/27/2020 08:45:00 AM EST Malignant neoplasm of left breast in fem sharonda, estrogen receptor positive, unspecified site of breast [facility] Malignant neoplasm of left breast in fem sharonda, estrogen receptor positive, unspecified site of breast COMPREHENSIVE METABOLIC PANEL <td>COMPREHENSIVE METABO LIC PANEL</td><td>STAT</td><td>06/27/2020 8:45 AM EST</td><td> Malignant neoplasm of left breast in female, estrogen receptor positive, unspecified site of breast</td><td> </td> 06/27/2020 08:45:00 AM EST Malignant neoplasm of left breast in fem sharonda, estrogen receptor positive, unspecified site of breast [facility] Malignant neoplasm of left breast in fem sharonda, estrogen receptor positive, unspecified site of breast BLOOD COUNT COMPLETE AUTO&AUTO DIFRNTL WBC COUNT <td>C BC AND DIFFERENTIAL</td><td>STAT</td><td>06/06/2020 8:50 AM EDT</td><td> Malignant neoplasm of left breast in female, estrogen receptor positive, unspecified site of breast</td><td> </td> 06/06/2020 08:50:00 AM EDT Malignant neoplasm of left breast in fem sharonda, estrogen receptor positive, unspecified site of breast [facility] Malignant neoplasm of left breast in fem sharonda, estrogen receptor positive, unspecified site of breast COMPREHENSIVE METABOLIC PANEL <td>COMPREHENSIVE METABO LIC PANEL</td><td>STAT</td><td>06/06/2020 8:50 AM EDT</td><td> Malignant neoplasm of left breast in female, estrogen receptor positive, unspecified site of breast</td><td> </td> 06/06/2020 08:50:00 AM EDT Malignant neoplasm of left breast in fem sharonda, estrogen receptor positive, unspecified site of breast [facility] Malignant neoplasm of left breast in fem [...] estrogen receptor positive, unspecified site of breast [facility] Malignant neoplasm of left breast in fem sharonda, estrogen receptor positive, unspecified site of breast Results ID Date Data Source [id number] 07/06/2021 07:45:50 PM [facility] Name Value Range Interpretation Code Description Data Joyce rce(s) Supporting Document(s) Progress Note [facility] CSZKVw5wGsEYQoZv28/DRTgmCVVzx2RdMOdrCNc3VApzOFHlI8YfYVH0aO0zFEE4FUhBTmArFdCxSXA2 lbm [file] o/SUsJSipKNgFG7aESPi3CXBaG758YCa05oN/NyUooXHkbGNTc7GOCluGvsUBu/[facility]//79J6IlDI+e Opht253xLEzikw0zC2kZ2tduXd742sM5Gm0E7SAKT9 xR0hJsO2WCrwCG2w7ytTpo5uSkS3EbRt0jn98mVIzXlTx2BmoFc/q6toKndDgD8nc8O6qcqCrA83rvd9 FIaVZB97t+la+ERFlJejmR3ymBak4GoAs9OrHR3136bfXr/yMdwfArGq32I19JpmemBDrm1TjKuhJswO 6cBTC84aIkE70v3L5IIdORRke6V/8vSw8Fwz+ooAXF JaXyQOfu80qxeuOACryFt4gsKbLo1tCLgk6dqMNJN2/iU+YhTX0u+fxXZn7HdpIlsg73Ayfm7YiOensb pQ6YkFRFPlDso/bo2/Eytk3WNjLhHZeCBDaKgXsuUgR1DLsvc4rKYKlG2z398qMQ8CGOdl5LY8iiqw5r 7jni6B1mxptfhGNSn6w5clJ+VALE/R2VFLF4PYK31V+ [file] ID Date Data Source [id number] 05/22/2021 03:19:39 PM EDT [facility] Name Value Range Interpretation Code Description Data Joyce rce(s) Supporting Document(s) Progress Note [facility] PXTYIi4mDsVQBpNj96/HRCdhSXEdb2ZeOHebZGm6YEabQGLyT0VfCMD6dA1hBVJ8HXpIYgLxMhTjKZV7 lbm [file] 0gDQo+Pk7Pj2GejvR0wvWsVEo0HJHgLN3BAGYRT4BGHo== ID Date Data Source [id number] 05/22/2021 01:23:34 PM EDT [facility] Name Value Range Interpretation Code Description Data Joyce rce(s) Supporting Document(s) Color of Urine [facility] Clarity of Urine [facility] Specific gravity of Urine by Refractometry automated 1.004 1.003 -1.030 [facility] pH of Urine by Automated test strip 6.0 5.0-8.0 [facility] Protein [Mass/volume] in Urine by Automated test strip Neg [facility] Glucose [Mass/volume] in Urine by Automated test strip Neg [facility] Ketones [Mass/volume] in Urine by Automated test strip Neg [facility] Bilirubin.total [Presence] in Urine by Automated test strip Negative [facility] Hemoglobin [Presence] in Urine by Automated test strip Neg ative [facility] Leukocyte esterase [Presence] in Urine by Automated test strip Negative [facility] Nitrite [Presence] in Urine by Automated test strip Negati ve [facility] Leukocytes [#/area] in Urine sediment by Automated count 0 /HPF 0 -5 [facility] Erythrocytes [#/area] in Urine sediment by Automated count 0-3 [facility] Epithelial cells.squamous [#/area] in Urine sediment by Automate d count None A [facility] ID Date Data Source [id number] 05/22/2021 01:07:37 PM EDT [facility] Name Value Range Interpretation Code Description Data Joyce rce(s) Supporting Document(s) Leukocytes [#/volume] in Blood by Automated count 4.6 10*3/uL 4-10 [facility] Erythrocytes [#/volume] in Blood by Automated count 4.06 10*6/uL 4.1- 5.3 L [facility] Hemoglobin [Mass/volume] in Blood 13.4 g/dL 11.5-15.5 [facility] Hematocrit [Volume Fraction] of Blood by Automated count 39.2 % 3 6-45 [facility] Erythrocyte mean corpuscular volume [Entitic volume] by Auto mated count 96.5 fL 80-96 H [facility] Erythrocyte mean corpuscular hemoglobin [Entitic mass] by Automated count 32.9 pg 27-33 [facility] Erythrocyte mean corpuscular hemoglobin concentration [Mass/volume] by Automated count 34.1 g/dL 32.0-36.0 [facility] width [Ratio] by Automated count 14.3 % 11.5-14.5 [facility] Platelets [#/volume] in Blood by Automated count 356 10*3/uL 150-400 [facility] Differential cell count method - Blood [facility] Neutrophils/100 leukocytes in Blood by Automated count 59 % [facility] Lymphocytes/100 leukocytes in Blood by Automated count 24 % [facility] Monocytes/100 leukocytes in Blood by Automated count 9 % [facility] Eosinophils/100 leukocytes in Blood by Automated count 7 % [facility] Basophils/100 leukocytes in Blood by Automated count 1 % [facility] Neutrophils [#/volume] in Blood by Automated count 2.70 10*3/uL 1.8-7 .0 [facility] Lymphocytes [#/volume] in Blood by Automated count 1.09 10*3/uL 1.2-4 .0 L [facility] Monocytes [#/volume] in Blood by Automated count 0.43 10*3/uL 0-0.8 [facility] Eosinophils [#/volume] in Blood by Automated count 0.33 10*3/uL 0-0.5 [facility] Basophils [#/volume] in Blood by Automated count 0.03 10*3/uL 0-0.2 [facility] Nucleated erythrocytes/100 leukocytes [Ratio] in Blood by Automated count 0 /100{WBCs} 0-0 [facility] ID Date Data Source [id number] 05/22/2021 01:26:52 PM EDT [facility] Name Value Range Interpretation Code Description Data Joyce rce(s) Supporting Document(s) Albumin [Mass/volume] in Serum or Plasma by Bromocresol green (BCG) dye binding method 4.2 g/dL 3.5-5.2 [facility] Bilirubin.total [Mass/volume] in Serum or Plasma <1.2 [facility] Calcium [Mass/volume] in Serum or Plasma 9.8 mg/dL 8.6-10.0 [facility] Chloride [Moles/volume] in Serum or Plasma 104 mmol/L 98-107 [facility] Creatinine [Mass/volume] in Serum or Plasma 0.75 mg/dL 0.50-0.90 [facility] Glucose [Mass/volume] in Serum or Plasma 79 mg/dL 70-140 [facility] Alkaline phosphatase [Enzymatic activity/volume] in Serum or Plasma 121 U/L 35-104 H [facility] Potassium [Moles/volume] in Serum or Plasma 3.9 mmol/L 3.4-5.1 [facility] Protein [Mass/volume] in Serum or Plasma 7.0 g/dL 6.4-8.3 [facility] Sodium [Moles/volume] in Serum or Plasma 137 mmol/L 136-145 [facility] Aspartate aminotransferase [Enzymatic activity/volume] in Serum or Plasma 23 U/L <32 [facility] Urea nitrogen [Mass/volume] in Serum or Plasma 2 mg/dL 6-20 L [facility] Osmolality of Serum or Plasma by calculation 279 mosm/kg 275-300 [facility] Creatinine/Urea nitrogen [Mass Ratio] in Serum or Plasma 3 [facility] Bicarbonate [Moles/volume] in Serum 22 mmol/L 22-29 [facility] Alanine aminotransferase [Enzymatic activity/volume] in Seru m or Plasma 17 U/L <33 [facility] Anion gap 3 in Serum or Plasma 12 mmol/L 8-15 [facility] Glomerular filtration rate/1.73 sq M pre dicted among non-blacks [Volume Rate/Area] in Serum or Plasma by Creatinine-based formula (MDRD) >6 0 [facility] Glomerular filtration rate/1.73 sq M pre dicted among blacks [Volume Rate/Area] in Serum or Plasma by Creatinine-based formula (MDRD) >60 [facility] ID Date Data Source [id number] 05/01/2021 03:02:36 PM EDT [facility] Name Value Range Interpretation Code Description Data Joyce rce(s) Supporting Document(s) Leukocytes [#/volume] in Blood by Automated count 7.1 10*3/uL 4-10 [facility] Erythrocytes [#/volume] in Blood by Automated count 4.27 10*6/uL 4.1- 5.3 [facility] Hemoglobin [Mass/volume] in Blood 13.9 g/dL 11.5-15.5 [facility] Hematocrit [Volume Fraction] of Blood by Automated count 40.7 % 3 6-45 [facility] Erythrocyte mean corpuscular volume [Entitic volume] by Auto mated count 95.4 fL 80-96 [facility] Erythrocyte mean corpuscular hemoglobin [Entitic mass] by Automated count 32.7 pg 27-33 [facility] Erythrocyte mean corpuscular hemoglobin concentration [Mass/volume] by Automated count 34.3 g/dL 32.0-36.0 [facility] distribution width [Ratio] by Automated count 14.2 % 11.5-14.5 [facility] Platelets [#/volume] in Blood by Automated count 249 10*3/uL 150-400 [facility] Differential cell count method - Blood [facility] Neutrophils/100 leukocytes in Blood by Automated count 67 % [facility] Lymphocytes/100 leukocytes in Blood by Automated count 22 % [facility] Monocytes/100 leukocytes in Blood by Automated count 7 % [facility] Eosinophils/100 leukocytes in Blood by Automated count 3 % [facility] Basophils/100 leukocytes in Blood by Automated count 1 % [facility] Neutrophils [#/volume] in Blood by Automated count 4.77 10*3/uL 1.8-7 .0 [facility] Lymphocytes [#/volume] in Blood by Automated count 1.54 10*3/uL 1.2-4 .0 [facility] Monocytes [#/volume] in Blood by Automated count 0.49 10*3/uL 0-0.8 [facility] Eosinophils [#/volume] in Blood by Automated count 0.17 10*3/uL 0-0.5 [facility] Basophils [#/volume] in Blood by Automated count 0.10 10*3/uL 0-0.2 [facility] Nucleated erythrocytes/100 leukocytes [Ratio] in Blood by Automated count 0 /100{WBCs} 0-0 [facility] ID Date Data Source [id number] 05/01/2021 04:25:56 PM EDT [facility] Name Value Range Interpretation Code Description Data Joyce rce(s) Supporting Document(s) Albumin [Mass/volume] in Serum or Plasma by Bromocresol green (BCG) dye binding method 3.9 g/dL 3.5-5.2 [facility] Bilirubin.total [Mass/volume] in Serum or Plasma 0.2 mg/dL <1.2 [facility] Calcium [Mass/volume] in Serum or Plasma 9.0 mg/dL 8.6-10.0 [facility] Chloride [Moles/volume] in Serum or Plasma 109 mmol/L 98-107 H [facility] Creatinine [Mass/volume] in Serum or Plasma 0.59 mg/dL 0.50-0.90 [facility] Glucose [Mass/volume] in Serum or Plasma 99 mg/dL 70-140 [facility] Alkaline phosphatase [Enzymatic activity/volume] in Serum or Plasma 93 U/L 35-104 [facility] Potassium [Moles/volume] in Serum or Plasma 3.3 mmol/L 3.4-5.1 L [facility] Protein [Mass/volume] in Serum or Plasma 6.7 g/dL 6.4-8.3 [facility] Sodium [Moles/volume] in Serum or Plasma 143 mmol/L 136-145 [facility] Aspartate aminotransferase [Enzymatic activity/volume] in Serum or Plasma 19 U/L <32 [facility] Urea nitrogen [Mass/volume] in Serum or Plasma 8 mg/dL 6-20 [facility] Osmolality of Serum or Plasma by calculation 294 mosm/kg 275-300 [facility] Creatinine/Urea nitrogen [Mass Ratio] in Serum or Plasma 14 [facility] Bicarbonate [Moles/volume] in Serum 23 mmol/L 22-29 [facility] Alanine aminotransferase [Enzymatic activity/volume] in Seru m or Plasma 18 U/L <33 [facility] Anion gap 3 in Serum or Plasma 11 mmol/L 8-15 [facility] Glomerular filtration rate/1.73 sq M pre dicted among non-blacks [Volume Rate/Area] in Serum or Plasma by Creatinine-based formula (MDRD) >6 0 [facility] Glomerular filtration rate/1.73 sq M pre dicted among blacks [Volume Rate/Area] in Serum or Plasma by Creatinine-based formula (MDRD) >60 [facility] ID Date Data Source [id number] 04/29/2021 06:01:21 PM EDT [facility] Name Value Range Interpretation Code Description Data Joyce rce(s) Supporting Document(s) Progress Note [facility] BKIWWf8pZzCPEgLc76/PMMmaWQIqk2BkHAhgISp0HTztPRVjS0JpEMT9vV3lNMR9KQqWTqJqCeCgZWXd lbm [file] AgICAgICAgICAgICAgICAgICAgICAgICAgICAgICAg ICAgICAgICAgICAgICAgICAgICAgICAgICAgICAgICAgDQogICAgICAgICAgICAgICAgICAgICAgICAg ICAgICAgICAgICAgICAgICAgICAgICAgICAgICAgICAgICAgICAgICAgICAgICAgICAgICAgICAgICAg ICAgICAgICAgICAgICAgDQogICAgICAgICAgICAgIC AgICAgICAgICAgICAgICAgICAgICAgICAgICAgICAgICAgICAgICAgICAgICAgICAgICAgICAgICAgIC AgICAgICAgICAgICAgICAgICAgICAgICAgDQogICAgICAgICAgICAgICAgICAgICAgICAgICAgICAgIC AgICAgICAgICAgICAgICAgICAgICAgICAgICAgICAg ICAgICAgICAgICAgICAgICAgICAgICAgICAgICAgICAgICAgDQogICAgICAgICAgICAgICAgICAgICAg ICAgICAgICAgICAgICAgICAgICAgICAgICAgICAgICAgICAgICAgICAgICAgICAgICAgICAgICAgICAg ICAgICAgICAgICAgICAgICAgDQogICAgICAgICAgIC AgICAgICAgICAgICAgICAgICAgICAgICAgICAgICAgICAgICAgICAgICAgICAgICAgICAgICAgICAgIC AgICAgICAgICAgICAgICAgICAgICAgICAgICAgDQogICAgICAgICAgICAgICAgICAgICAgICAgICAgIC AgICAgICAgICAgICAgICAgICAgICAgICAgICAgICAg ICAgICAgICAgICAgICAgICAgICAgICAgICAgICAgICAgICAgICAgDQogICAgICAgICAgICAgICAgICAg ICAgICAgICAgICAgICAgICAgICAgICAgICAgICAgICAgICAgICAgICAgICAgICAgICAgICAgICAgICAg ICAgICAgICAgICAgICAgICAgICAgDQogICAgICAgIC AgICAgICAgICAgICAgICAgICAgICAgICAgICAgICAgICAgICAgICAgICAgICAgICAgICAgICAgICAgIC AgICAgICAgICAgICAgICAgICAgICAgICAgICAgICAgDQogICAgICAgICAgICAgICAgICAgICAgICAgIC AgICAgICAgICAgICAgICAgICAgICAgICAgICAgICAg MUMjKEVtKSYiVXSvXGTuJPCqRKLgVJHsWMTlASFeUAShYNUaOAIbBNMhFMu9S2ftASIoKUWnLA0qPCo0 Jz8+UDwDMqMhEGX7vtVbxV3JNG2ww2MbHLybANPxc5PkNOl2TL7QJSXsKCzeUL5DGNntgf5KHOCwZQDm tUZRa2oqZnSwBUW8ZFMhWcrlBX2EXUChB2mxreQjIB NbSEEFBYwbOCLZRQztBLCNKTZlRBHeLsOnVuJkNTPbJDIqXKJDJIA2VUKvWzXkRAMmWOYnIhAeOCXALX 8KOdFwS0EzpG84VWkYGs2+YTnabgVwQizAUkTwTUAbf3LyUHu6HH2LYQWkDcvru3WuSZGmQUJJTPmiLC 3FKIY4ZQP5IDXyOc0ADVRgX325qwAjWR7ZEy3GCjZu HY7ntm7HOQVdOPTfWeeHEhs6BZgkNE8TsVNhUElSgk6sufCncbGTm1LfwbVjiRNBFL0kbuSrR9jyds0n EGRJOUMxbMP0PhM3UmYzFuUfWVC3ABGsMR9lCIgvLQ4OOGQ2MEgzYZGvTLYoB6lPLgPxPWHxNPRsjPgu VJ4UKcLmF7EbstPorCN7ChEaBHYQJr8+DQplbmRvYm oFJaN5EMLwd4TfTSd9OO1BUSXtLDxmXM0DQHMcyZ9pRJpfUU4KTuX3SAChJOGFOzVxG37ivMEtQTi6R7 VtYmVkZGVkRmlsZXMgPDwvTmFtZXMgWyBdDQogID4+ID4+RFucFH8SDEnqbsHcSTGlRz3UJKZlHLAzDV 3xCVFtZYBgE4P5iGpaUTYTPuIcN1dqxcayZO6zQESg O590zBinetHxONRzEVUrZg2QIDDfHAT3PZIvwTGiNCLlBITPQBovNP4BmTAdWAJ5aN3fFEjiVACdLSAb A9sWNsEjeJoaDY97pVffrgOvcOJrQPy+Rj5TDS1on3MbHZd0ebYzMZibNSS2CHziKLZjNTQjRYFzKRS4 XTH5RPDTNnLpWQUoTGSnPOtkSCYxZHPyuq5BSMCwNW Z1MRl2GRZrUTUiOFWiBXwaHBUiJPylXHLxIDZzODElIC5VToVwETIlIXAfAAmzMJKoWJZtkt5FTJHqNG RvVFfaYPRnEZXbOASdTVboNAAnAZG7PMVoGIPmFNSzRC9VIxOvOLDrTOZ1OUxnPDQsGCJsed3HZBMhJY LuKUneQgVvBZYfTAXbVFnfGAKnJVL2GVf3SIQhOFBy LO5TJnUpELJeODJnADVmUNCfEVAxzp7CACMiZOZfMlFzIZIxUWKtCNSdMNnnMIHeUQQ3FVXiROXbURIt KU3UHwWeFYQlFDk1DUsfSXPkNJUrvl7AMUCiJMDoJAp1DOSrIPQlIHFpITkrVVPqORClGqNpADCgFHXy KE7TZmIbFISrRxW3UTTlPZZoTXJscw1CXSDjNRHoHD a6QZFkJQWnAXIrBKstEIFeQTK8BQc5YQKoGSIdJY5JUwTxQWDtDdG1NSEbAKHqCLIdze6GZJZeSAKrVV m9ZqLpXQRmALMdGPdfBLPvRHP9DOf2NJLkGVHyVK8KBfDvHCHuBnE9EWQgUWRyWIJzza0PBIIhWQPjFC F7EYYfFWVyZQPfTCmtOAOfBPM9BYW5XYApMXAqAB9X BwAxGHBbKfDzBHLwKVQqKKQugy9JLJSxCCIvRnh9IOGbLJDrBCIbUAeuSQLsBQQ1PbKyOEFhHRFcYM7K WwLgOLOmZmviRDkoWMQeZQZkty6XLVLfAMV3XBtoWZIrRWHePFXoDTxuHCVlRGA0ZHU2TTKtIWCrHZ4D LbWcANQwUWttDQJxTEMaNXQfeo9SAEVbJCX5ZLBwBp FmZTMbSGAnHZkjIEMbUFN2CsT7XILjLXZmWC2OBwBeCCYbTYV5FXEaCHTaRPHbpo4HPWBiLHH3SBk6AV YqVUUrDJCpVAvkHEWjAMHmMEX1EYVmVUEbQM8UCsDiOLAjYbe6EtLtFZRrSAVmox6BVNPgOIH8QRGxLU PqMMAxFQZoUMrcKTIgNFu0BlV3ONLeEYOeKQ4ZHtSc SILbMLZ8JohbPWIzKUFvdh2BSDEsWAG1HNqeSNDzYJPjUBPeOYayAKXnCKnfYITaLROwAWYpDE3HFsQt AUYvVQX0YDAyXUPwVWFbyb2NVANqVFO7ZrpqOSOqMKNfAQMiFEfiROJhPSrbZTavLBZlKJVyTI9VKhAv GQgkQSTYKxt9EYoeA0y3OZO8Fc5OA1Glv1JoOIPkAF VNEOtlCN3ydzHiHXUdKg8EV1vKIyo2XbA5OQYrVHU5EIFbQTJpWKudTDIrWMUqPZbcLFEfDV8xUHDiAW hfIFG4KBdnADK1YbE6ECTlDIRoIrHiCUW8WWBdRwAsQZ9HDf8NIxY8JDT1rPBuZc8DJWMgSLfENePeAN 9GDQo= ID Date Data Source [id number] 04/23/2021 01:27:18 PM EDT [facility] MAMMO DIGITAL DIAGNOSTIC RIGHT [id number] L RESULTInterpreted by:HÉCTOR Damon DIGITAL MAMMOGRAM WITH [...] Name Value Range Interpretation Code Description Data Ojyce rce(s) Supporting Document(s) ID Date Data Source [id number] 04/21/2021 09:50:40 AM EDT [facility] Name Value Range Interpretation Code Description Data Joyce rce(s) Supporting Document(s) Progress Note [facility] KZVGPr8kYqZWDsSa77/PNGjdZJItl2ApFMgzJYd2UUqaMOJrU4PpIOJ3pA3zPXC3AGeYVdKpRsEsHAHe [facility] [file] DQo+Jr0Fc6FtrkX8vuYpZWmcOlm5Ck7OCAHDP4NZEs== ID Date Data Source [id number] 04/14/2021 07:51:32 AM EDT [facility] Name Value Range Interpretation Code Description Data Joyce rce(s) Supporting Document(s) Progress Note [facility] MJIDQn8iRlURCtTn91/CUXwrANXau8NvUStsVRv3GKzvULIpY9DtGYR5cQ7fYQU4XOrDEyBhNgZpIYB3 lbm [file] MdHnUEM3PMH+ID4aZVm+Pf3An6UfwrO7xlLwAWugODM2Hf5XVDMSC4VSUw== ID Date Data Source [id number] 04/07/2021 10:58:29 AM EDT [facility] Name Value Range Interpretation Code Description Data Joyce rce(s) Supporting Document(s) Progress Note [facility] BQACIs0fLnEZOyOk58/UBQoeBGSge8WaPDylJYq6INtpQGXgH6CbXJD0oH1rZRJ8EAaKNlIdKhEeTTFy lbm [file] vX0qnt+Qq69JkZHydrGzHRsmBrP1XxSiJ1MrIO8Gwbdt6LG7ydmxQz6+CsL5qCRUeW+[employer]/nyeprOZxPO [file] CiAgICAgICAgICAgICAgICAgICAgICAgICAgICAgICAgICAgICAgICAgICAgICAgICAgICAgICAgICAg ICAgICAgICAgICAgICAgICAgICAgICAgICAgICAgICAgICAgICAgICANCiAgICAgICAgICAgICAgICAg ICAgICAgICAgICAgICAgICAgICAgICAgICAgICAgIC AgICAgICAgICAgICAgICAgICAgICAgICAgICAgICAgICAgICAgICAgICAgICAgICAgICANCiAgICAgIC AgICAgICAgICAgICAgICAgICAgICAgICAgICAgICAgICAgICAgICAgICAgICAgICAgICAgICAgICAgIC AgICAgICAgICAgICAgICAgICAgICAgICAgICAgICAg ICANCiAgICAgICAgICAgICAgICAgICAgICAgICAgICAgICAgICAgICAgICAgICAgICAgICAgICAgICAg ICAgICAgICAgICAgICAgICAgICAgICAgICAgICAgICAgICAgICAgICAgICANCiAgICAgICAgICAgICAg ICAgICAgICAgICAgICAgICAgICAgICAgICAgICAgIC AgICAgICAgICAgICAgICAgICAgICAgICAgICAgICAgICAgICAgICAgICAgICAgICAgICAgICANCiAgIC AgICAgICAgICAgICAgICAgICAgICAgICAgICAgICAgICAgICAgICAgICAgICAgICAgICAgICAgICAgIC AgICAgICAgICAgICAgICAgICAgICAgICAgICAgICAg ICAgICANCiAgICAgICAgICAgICAgICAgICAgICAgICAgICAgICAgICAgICAgICAgICAgICAgICAgICAg ICAgICAgICAgICAgICAgICAgICAgICAgICAgICAgICAgICAgICAgICAgICAgICANCiAgICAgICAgICAg ICAgICAgICAgICAgICAgICAgICAgICAgICAgICAgIC AgICAgICAgICAgICAgICAgICAgICAgICAgICAgICAgICAgICAgICAgICAgICAgICAgICAgICAgICANCi AgICAgICAgICAgICAgICAgICAgICAgICAgICAgICAgICAgICAgICAgICAgICAgICAgICAgICAgICAgIC AgICAgICAgICAgICAgICAgICAgICAgICAgICAgICAg ICAgICAgICANCiAgICAgICAgICAgICAgICAgICAgICAgICAgICAgICAgICAgICAgICAgICAgICAgICAg ICAgICAgICAgICAgICAgICAgICAgICAgICAgICAgICAgICAgICAgICAgICAgICAgICANCjw/cGWxK4zy rGSpdgK8H8wrYv3YEz0RGU2ru3IvNKEqMWwpatPtDs lKFdSrXFEhOkzEQru2JBjtHP9HsPDdU3YdS5OkVZrlAU1UJGZbFCIgyCNwIMPuICPdRmM4PHUoPSeuTV 6TgNGaMZveUNFfRIByGGUiWLPmNAJaFJCNJSClTMHtTcWxEXtqYP1Al7DltOO4DFn+On8WKD2dc0HsDE gfFHHnGE9yhz7WHNxIUlJvI2BefuZ9QYWtMQHvAo6A STEjPJRaaZGrXEOgOKUMVsWiJ2ZcdT27QMGTUl3+ECmnpxTqRgiTNqBtDFXbe0LlIHq0JP9XSXLpMQb7 gSJtCLKmJ9Jci6OwSb40OTXoQeenFqJwYFHjRBZZXFCnNKGPPWAcbPQ0YgC4OeQiPwDdAUB4RgCtZG4o DYuiMI2LOAA7BLczLGZgLIEmZ4rWBvTvNQVlXDMdeF wtGL5WGhMdF2EuweFdlPZnNDKkAEAQWe6+VBivmdVbHfcHKdGaRENwThpZNnn7ELnvOG1UzVAsUA3Kmh 5aqVXhM6PslNhrUWSjVYppsuHxMq2tZFBtRHqtKBZbLX2aV3gaS4miN6SgTQHQBqUzE0OmQ2SwIkHyOW N2AJRuPyZxQRJxITCNKhGcA9EoPEeqYwBwCFJEWV4S AxjsJKVmOljEXXuJZ7CJEExUCEPJSe6CB07KL38NQGTPAA7JG0hBWyvtBM0+DL2BCq4YHgPuZU9xbd5T UlScBPIfJcuUUnn3FBzyDC3IrGXxR7AuaZFoi5kMLvZtY5TOOJN1AFEkAx7OVZIqEqYlJXIbERdpLO1k WRDlUWUOpVdxreV0CW2ASU7cyvUvAQ3MJhStQk6bVj 0IMvHuS0ScN5EnUXEeFAGCNCdmHY3AZXxhIO3dUH0Xf6YXvZJhtV8zqs1EHRDvNCGsAevozg9SJcxxP9 Y1xYzyRKNxEcpgCATFJMzkEV9DRGAeCWH8XSWnDSGbQDDVRoAuF12hQX6OQ7Rlq91gRlB4IMGhVyViOK cxOJ37tMnguhNcxWJdeBxxDV4ZMm6+DQplbmRvYmoN BbcvAKGKSjUaKtTZDwSdAVKcYXErLKUuJeC0GoGvAb5WVOTzTUMwKYYfDtNuDRSqPHMrYSgjIPFhLDE6 RWVvNGUwUKYvUH4XLmKfNBMuMyk9ASQrIBYfCBImnx5GPBFqPFRqNMX0UaOxKYTrQKJyGJzoIKMcZSRt ADFaKCDrKTAuNI1VAaRaHVLjZat0ERZfTGOqGCFlmz 2JHZXaSIAnLzi5JIFoCBOoVHUtFSvhGWNqYAU2QCS4AGTyMKPqGP9BPnKdIYEfVRJ7UMCmYRNxTAJcqx 8NJUWgQZDlCZL8OWPuNMWaSBKdUFtpEQFyRMP1MdW5THEyCRYrWK1VKdGtWTJyGKLdUpFeRVUkMOKmug 1XIPGnSYTrCAQuJXSgCNHrJWVuAUvbTNMiDKKjGay5 SGHkAGUgUX8ACoErJRQpGLA8EWLbMTUhPCXgfx2NUINdOXMiNli9ZHMgZFXeWNMuMCaeOSFuFTTtCpT4 SBVlSJXdOD6GLuKzCRFlUFS0EtQtXJRqTPOucu9EIHOtFYRcMPXlZBOhBSMfWIAqUAfsOOSiNMG1DEZ5 HSSjVGVaFC6UMxTeXIShQxJ7RiEcJOCvXEYris1UTR SmGEDzSxO9LcSfTZZpBRPhFRqdUYGyTXV7MkBjTWCiUXXaRO1PCoKuDHHqYmZ3NkogNILnWPNlsx5UER IhYUPsEtXrUqIiIVFyXFTzCXtyWEFlXWJ9EwNpGGHsFNJsOO8EEaPaWXAhRly9GZgaOUJiEEZlvn9PAA PdFJPkVKYtCSPcNSCsKCCyJYrqKFPaTPF6ScRmFYHh URRsBO8SQvRxOSBsZhc8AgWiPPDqWQYpuo3UERWpPZKzGMZ8UzTeQCPbXZTwPFl1hrBjvLSrTNn2QT0O V2ZlleJbQxVESm0Jq968ESDfMBSfHx8ZG7ubUr7uTDMcMAYDCm4TMZk1QEbeCFIbDvG4JRFjKaU5KKJ4 WbcrRUxzYTH4KTSwVCO+OShvQSVgXNRzGVmiIPC9Dy lyBiSmK8RiASIlWTOkUUGhAl9jZWIFVm6+PEnqbOLmuCatHRETMiBvUqBzEHyfIBJKEv7H ID Date Data Source [id number] 04/04/2021 04:07:54 PM EDT [facility] Name Value Range Interpretation Code Description Data Joyce rce(s) Supporting Document(s) Progress Note [facility] IVYUUk1zToWNIwMk45/ERUohAXKpv9WcUTppGDy2IJgySVNhE2IzBHF7xG1nTUI3DOySHiJhDdToDOQ4 lbm [file] 5fU+MILL[employer] SUPER[employer]+iAYeAwS4AnNicaBXcDxUIUVGXVjM8uQGv4taafIHI47cpW5za7tsNHptRoKTRY/7bzR4nzmn [file] ItPRnsMhvpDoIaVyO8RXh8T0HiRqSuJt8sUQNNEr0+BFqlyJSbgCdeSXFYLdA1QuzfBAsfLCJRBu5S ID Date Data Source [id number] 04/02/2021 02:28:43 PM EDT [facility] Name Value Range Interpretation Code Description Data Joyce rce(s) Supporting Document(s) Progress Note [facility] TOTCSd3hJpZFHzLl25/KRGtiLEQrr3SySQkcEHz3YWkzKNGfO2SfMUI7gD9dWWZ7NZaAZtBfKnCqCID3 lbm [file] Geri/N/HHdx7cz2k3mdlt8uwnS0LLh9RSpQ8xy5fBBnzSBeHMYRS5wywUg0I0Ta9zVDb36S/uqGniBoH2 C1rP4+Ri3sBtH9gR+eUY5vLZXR79fsjUE7tXHf1sfM XTmKvZipqknQjgxmEl6oQ/iN3G6yD4rOsEbIF1dVNbmgW+YExWWbQkyPhFhujcOvwAHjwcRpKl1kFgvE D3dQedanbPTKzhdJBbpBYQRVrJJtJhnGQTTUQpJ58bAz3cR+pKv34NX8wdWk9t4ch0MDdE2lr5s7VP1L 4UYybOdgJcfUJJTDUolzOz3aCxPeXn7yY7hmwuelB4 hTYN6xDA6+E9MUwbZhxlIuuxameBglQ4AwckaN8nQ7kgv0ot70HWSNEnRTqqwzTENxTc2ZWgREq18CTB NoyC3jsUc2Iro65BtuHMW/A3ovQgb8KlFPhsdmOzUUi6URL6Tuo+W7DqcwYbg9CA5FdRfXVdza4rbIoS v0tG2P55z0WzMe6o1m2ge88Dmu2YBWOCJGQJjUe3UF LbqD7RNiHWm8qlVK0Q7PLcbqmbUBzJtMviYkX+9M5ZOQ0CwEFoo4JLqasClPkQ2EoNs3+we8EjHgP7x9 IgIGotr3ovyG7S6dOzGn/2Vedid4mbg7p+oHfY1M4704O7/[employer]+FeX21B2urGngJM7ylmcHOWG2BaLwR [file] ICAgICAgICAgICAgICAgICAgICAgICAgICAgICAgICAgICAgICAgICAgICAgICAgICAgICAgICAgICAg ICAgICAgICAgICAgICAgDQogICAgICAgICAgICAgICAgICAgICAgICAgICAgICAgICAgICAgICAgICAg ICAgICAgICAgICAgICAgICAgICAgICAgICAgICAgIC AgICAgICAgICAgICAgICAgICAgICAgICAgDQogICAgICAgICAgICAgICAgICAgICAgICAgICAgICAgIC AgICAgICAgICAgICAgICAgICAgICAgICAgICAgICAgICAgICAgICAgICAgICAgICAgICAgICAgICAgIC AgICAgICAgDQogICAgICAgICAgICAgICAgICAgICAg ICAgICAgICAgICAgICAgICAgICAgICAgICAgICAgICAgICAgICAgICAgICAgICAgICAgICAgICAgICAg ICAgICAgICAgICAgICAgICAgDQogICAgICAgICAgICAgICAgICAgICAgICAgICAgICAgICAgICAgICAg ICAgICAgICAgICAgICAgICAgICAgICAgICAgICAgIC AgICAgICAgICAgICAgICAgICAgICAgICAgICAgDQogICAgICAgICAgICAgICAgICAgICAgICAgICAgIC AgICAgICAgICAgICAgICAgICAgICAgICAgICAgICAgICAgICAgICAgICAgICAgICAgICAgICAgICAgIC AgICAgICAgICAgDQogICAgICAgICAgICAgICAgICAg ICAgICAgICAgICAgICAgICAgICAgICAgICAgICAgICAgICAgICAgICAgICAgICAgICAgICAgICAgICAg ICAgICAgICAgICAgICAgICAgICAgDQogICAgICAgICAgICAgICAgICAgICAgICAgICAgICAgICAgICAg ICAgICAgICAgICAgICAgICAgICAgICAgICAgICAgIC AgICAgICAgICAgICAgICAgICAgICAgICAgICAgICAgDQogICAgICAgICAgICAgICAgICAgICAgICAgIC AgICAgICAgICAgICAgICAgICAgICAgICAgICAgICAgICAgICAgICAgICAgICAgICAgICAgICAgICAgIC AgICAgICAgICAgICAgDQogICAgICAgICAgICAgICAg ICAgICAgICAgICAgICAgICAgICAgICAgICAgICAgICAgICAgICAgICAgICAgICAgICAgICAgICAgICAg DORbYCSfUNTvLOTpSQXoLIZaDTMuZRCdXXm2D7pgFMFyUNReBU5kXSy9Pm5+CRyXPjVdLHM8lwLtaU5Q NM8lh9RvIIfvXULfi5ZpLKp2VZ8EXNUlWStfKE6SLO vevg8VHXKgHCFqrTUUc2lqBnUvJOK9IIQdGeenDQ1KKLIiP1qcfrGnSPDpLYPNIXfxJHUYDESfOIOqDr SoBmBxMJUoXG1QWFQxY590igSvLR0PHs2POlWbJE4qha1AHguySJVhOhtSOqw5KSutCW4HcDPdbPHfZT SdSECZOfFrM9sxy8PkCbXiPNTDWAvtLB2Pz6TnmPSu DQo+En2FQF8jj3SkNEjrKVWbTB4zti3XMMlOJmAxF4RiyQweTOGmr5xpBWHsIG9zbFAlNIT6ROIrdpSy T8crvEeprrkcYSDwFRFcYC0xDR0vKHSkYWDnGmCxVEUJWH2WRMZsTUHrgQKsBZAxJFEOND6YCFfyXAZ7 BWRuvoYcaFMrQLxkPT1AEPRuolOiGhbkNAZWXQp+Pg 7GOP7pd4GdZXd3CIFuo8CcFXi2BL4MALTfSQgaDTSaRM4vq4XdX5E3ViK9qMPjX5sysyllM9KttiIeyy QfJIQdNOSqKU8KHK4ZYG6AHCAhVZpgKX1OXYB8VGb5QvS9WyddNYRvJZQ1M89rQXioAQ2VKDf8T8FtW2 XLOSFqPGQIGFChsKG5AVRGWz8RL5JEYstPYKZZAe2R BxJrL0FUC6hMJ07FIF4LHGP+PiANCj4+NTtoexXvXhcMCpDsWRVev3PtYSf2AW5SABXlLIleZU3TOEXl pA7hRHxwGC7UOoVbOcRpKOVQJkJlR08dqVXrPDl3S0UbUbZgKCWaSptbSYBiMTeiQhPcVTUdMeEcDBvc ID4+ID4+YFcxBG4XIPdasvImNXEuAn8OGPTuEAOhSH 4kLPHrZUGeP5E1gNeuANYCNfDrL2rpxaqwVC3fADDcO881tGryqhMwVRX9FGAlYu7FBDOuAPK2IMIvyI IoTsewGAYTTXefZM2XdMUxQFE9zZ8lPTalQFQyAGYmV7lFCsYlwCgiLK05cHdngvSvmVTwUNk+Pg0KZW 0eh0FdRWq2sbXwWPltLCAvLJcvNYAqUZStXBMjPHC8 FXT7ULAHTrRmXRNuSMHzPAesEBZpGPAnkg2DIZRdWQBaJpm9KNKoQPOrQIEzGVmoKDWaIAA4OZB8RYAy DIIiBY4IMhDeXYNkHORuQHoqYXXyRMArio0FFHLbTPZfFmPnBISwQAFtIZByNMfoCYLqLUO9BRA8GLQd MVHnYV4GUjZzUMCmOXY7DXXqVIIbDIYstc3IDRNuEG RaIhJ7XfYsGFGpSWVfJLzySNByNSP1YCC3JJWwMCKoNU4VRySfOWEdFFi4EONoXHHuXHZwsc3SEMYxXV DkEZo5HAYfFHFrVMRqJVsrIFDlZDQhQTh4CWVfEXFgEJ6FQqZwLFDkAXK1CICrAKYuUFOsea2GKAMjRD NgXlI9GpWsIRZgXCQvLLrcODEsUQIlWEAmHRDjDZMb DE4FIpTbOQHmYHW7TAUbSYUmUHZrfe8WLBUkNHQxZixvFaIuYIDvHNEcBHhdTFLaIRQrWXU4HDCzUYNa OI2PLxTfGHSgVVVlTNGjRAMhSURopd7TJIMvADBaKUMqIkQxSKXnDSTlSDirCGRxHZC6VAE3RSXwNODo ZW7KUiEaKONbEcQqYNBkZXFuWDGtno8VZABnKALsZy KpEeGxYJQzYXZjOMslBLRhJQU9IZOfENWwYFFfRV8KBxLzDLScPtcjSRIfROHyFMWekz4NCVXaANVsBf Y0GTNzISPdAYQyIBayKPKaSJM5HiNbSSVbHDExDR6IGwDsUYHfQxmdIslpLAWjGVBuje9CAZMrFTRzVA RjZrLtHJYlIDAiKVmiWMAuGOG7ZhF9ZSUdJONzGK2I ZwZhDEPtOlRqEuSaISVkRDQlxk9NwLYudHdihz7UGUeAWe8DvGdqNKKsGYibMc6fhJWnLYFkKHCCVf0N jiAhGBRaYGGJHIbhHKOpNJY5BVG7ERtoZhZsOeB4AWGiAgHmRQC4SZEnVDRhLUv4LzU3LgQuNGH6HQF1 DAX3RyT4GGF4YTWzWtrkMPRxXoB4BHA+YC2xMRx+Jb4Gd1YvbxU3eiKhKZenIFX0RD0LONJDH3OBJb== ID Date Data Source [id number] 04/02/2021 11:31:31 AM EDT [facility] Name Value Range Interpretation Code Description Data Joyce rce(s) Supporting Document(s) Leukocytes [#/volume] in Blood by Automated count 6.0 10*3/uL 4-10 [facility] Erythrocytes [#/volume] in Blood by Automated count 4.88 10*6/uL 4.1- 5.3 [facility] Hemoglobin [Mass/volume] in Blood 15.8 g/dL 11.5-15.5 H [facility] Hematocrit [Volume Fraction] of Blood by Automated count 46.7 % 3 6-45 H [facility] Erythrocyte mean corpuscular volume [Entitic volume] by Auto mated count 95.9 fL 80-96 [facility] Erythrocyte mean corpuscular hemoglobin [Entitic mass] by Automated count 32.4 pg 27-33 [facility] Erythrocyte mean corpuscular hemoglobin concentration [Mass/volume] by Autom[facility] 33.8 g/[facility] width [Ratio] by Automated count 14.8 % 11.5-14.5 H [facility] Platelets [#/volume] in Blood by Automated count 227 10*3/uL 150-400 [facility] Differential cell count method - Blood [facility] Neutrophils/100 leukocytes in Blood by Automated count 70 % [facility] Lymphocytes/100 leukocytes in Blood by Automated count 19 % [facility] Monocytes/100 leukocytes in Blood by Automated count 9 % [facility] Eosinophils/100 leukocytes in Blood by Automated count 1 % [facility] Basophils/100 leukocytes in Blood by Automated count 1 % [facility] Neutrophils [#/volume] in Blood by Automated count 4.23 10*3/uL 1.8-7 .0 [facility] Lymphocytes [#/volume] in Blood by Automated count 1.17 10*3/uL 1.2-4 .0 L [facility] Monocytes [#/volume] in Blood by Automated count 0.51 10*3/uL 0-0.8 [facility] Eosinophils [#/volume] in Blood by Automated count 0.06 10*3/uL 0-0.5 [facility] Basophils [#/volume] in Blood by Automated count 0.06 10*3/uL 0-0.2 [facility] Nucleated erythrocytes/100 leukocytes [Ratio] in Blood by Automated count 0 /100{WBCs} 0-0 [facility] ID Date Data Source [id number] 04/02/2021 12:09:13 PM EDT [facility] Name Value Range Interpretation Code Description Data Joyce rce(s) Supporting Document(s) Albumin [Mass/volume] in Serum or Plasma by Bromocresol green (BCG) dye binding method 4.4 g/dL 3.5-5.2 [facility] [Mass/volume] in Serum or Plasma 0.3 mg/dL <1.2 [facility] Calcium [Mass/volume] in Serum or Plasma 10.0 mg/dL 8.6-10.0 [facility] Chloride [Moles/volume] in Serum or Plasma 105 mmol/L 98-107 [facility] Creatinine [Mass/volume] in Serum or Plasma 0.76 mg/dL 0.50-0.90 [facility] Glucose [Mass/volume] in Serum or Plasma 93 mg/dL 70-140 [facility] Alkaline phosphatase [Enzymatic activity/volume] in Serum or Plasma 102 U/L 35-104 [facility] Potassium [Moles/volume] in Serum or Plasma 4.2 mmol/L 3.4-5.1 [facility] Protein [Mass/volume] in Serum or Plasma 7.5 g/dL 6.4-8.3 [facility] Sodium [Moles/volume] in Serum or Plasma 141 mmol/L 136-145 [facility] Aspartate aminotransferase [Enzymatic activity/volume] in Serum or Plasma 17 U/L <32 [facility] Urea nitrogen [Mass/volume] in Serum or Plasma 12 mg/dL 6-20 [facility] Osmolality of Serum or Plasma by calculation 291 mosm/kg 275-300 [facility] Creatinine/Urea nitrogen [Mass Ratio] in Serum or Plasma 16 [facility] Bicarbonate [Moles/volume] in Serum 22 mmol/L 22-29 [facility] Alanine aminotransferase [Enzymatic activity/volume] in Seru m or Plasma 20 U/L <33 [facility] Anion gap 3 in Serum or Plasma 14 mmol/L 8-15 [facility] Glomerular filtration rate/1.73 sq M pre dicted among non-blacks [Volume Rate/Area] in Serum or Plasma by Creatinine-based formula (MDRD) >6 0 [facility] Glomerular filtration rate/1.73 sq M pre dicted among blacks [Volume Rate/Area] in Serum or Plasma by Creatinine-based formula (MDRD) >60 [facility] ID Date Data Source [id number] 04/02/2021 02:07:34 PM EDT [facility] Name Value Range Interpretation Code Description Data Joyce rce(s) Supporting Document(s) Estradiol (E2) [Mass/volume] in Serum or Plasma 7.7 pg/mL [facility] (NOTE)Females Follic ular: 26.7-156.0Ovulation: 48.1-314.0Luteal: 33.1-298.0Post Menopausal: <49.9 ID Date Data Source [id number] 04/02/2021 02:35:32 PM EDT [facility] Name Value Range Interpretation Code Description Data Joyce rce(s) Supporting Document(s) Follitropin [Units/volume] in Serum or Plasma 102.0 mU/ml [facility] (NOTE)Females Follicul ar: 3.5- 12.5Ovulation: 4.7- 21.5Luteal: 1.7- 7.7Post Menopausal: 25.8-134.8 ID Date Data Source [id number] 03/26/2021 08:39:00 PM EDT [facility]) Name Value Range Interpretation Code Description Data Joyce rce(s) Supporting Document(s) glucose, fasting 91 mg/dL 70-100 Glucose, Fasting AT [facility] ([facility]) blood urea nitrogen 8 mg/dL 7-18 Blood Urea Nitro gen [place] ([facility]) glomerular filtration rate > 60.0 >58 Glomerula r Filtration Rate [place] ([facility]) creatinine for GFR 0.55 mg/dL 0.55-1.30 Creatinine for GF R [place] ([facility]) sodium level 140 mEq/L 136-145 Sodium Level [facility] (No [facility]) carbon dioxide level 28 mEq/L 21-32 Carbon Dioxide Level REZA ([facility]) potassium serum 3.6 mEq/L 3.5-5.1 Potassium Serum ATHE NA ([facility]) chloride level 108 mEq/L 98-107 Above high normal Chloride Level RE[facility] ([facility]) anion gap 4 mEq/L 8-16 Below low normal Anion Gap REZA ( [facility]) calcium level 8.7 mg/dL 8.5-10.1 Calcium Level REZA ( [facility]) ID Date Data Source [id number] 03/26/2021 08:39:00 PM [facility]T [facility] Name Value Range Interpretation Code Description Data Joyce rce(s) Supporting Document(s) CPK creatine phosphokinase 67 U/L 26-192 CPK Creat ine Phosphokinase RE[facility] ([facility]) CK-mb value mass < 1.0 <3.6 CK-mb Value Mass AT [place] ([facility]) troponin I 0.03 NG/mL < 0.10 Troponin I RE[facility] ([facility]) mb/CK relative index < or =4 mb/CK Relative Index [facility] ([facility]) ID Date Data Source [id number] 03/26/2021 08:39:00 PM EDT [facility] ([facility]) Name Value Range Interpretation Code Description Data Joyce rce(s) Supporting Document(s) white blood count 7.1 10 4.0-10.0 White Blood Count RE[facility] ([facility]) red blood count 4.13 10 4.00-5.40 Red Blood Count ATHE NA ([facility]) hemoglobin 13.3 g/dL 12.0-15.5 Hemoglobin RE[facility] ([facility]) hematocrit 39.4 % 36.0-47.0 Hematocrit [facility] ([facility]) mean corpuscular hemoglobin 32.2 pg 27.0-33.0 Mean Cor puscular Hemoglobin [facility] ([facility]) mean corpuscular volume 95.4 fL 80.0-96.0 Mean Corpusc ular Volume REZA ([facility]) mean corpuscular HGB conc 33.8 g/dL 32.0-36.5 Mean Corpu scular HGB Conc [facility] ([facility]) red cell distribution width 13.9 % 11.5-14.5 Red Cell Distribution Width RE[facility] ([facility]) platelet count, automated 263 10 150-450 Platelet C ount, Automated [facility] ([facility]) neutrophils % 64.8 % 36.0-66.0 Neutrophils % RE[facility] ( [facility]) lymph % 22.0 % 24.0-44.0 Below low normal Lymph % [place] ( [facility]) eos % 2.7 % 0.0-3.0 Eos % [place] ([facility]) mono % 9.6 % 2.0-8.0 Above high normal [place] % REZA ([facility]) baso % 0.6 % 0.0-1.0 Baso % [facility] ([facility]) immature granulocyte % 0.3 % 0-3.0 Immature Gran ulocyte % [place] ([facility]) lymph # 1.6 10 1.5-5.0 Lymph # [place] ([facility]) nucleated red blood cell % 0.0 % 0-0 Nucleated Red Blood Cell % REZA ([facility]) neutrophils # 4.6 10 1.5-8.5 Neutrophils # REZA ( [facility]) eos # 0.2 10 0.0-0.5 Eos # RE[facility] ([facility]) mono # 0.7 10 0.0-0.8 [place] # REZA ([facility]) baso # 0.0 10 0.0-0.2 Baso # [facility] ([facility]) ID Date Data Source [id number] 03/26/2021 03:50:56 PM EDT [facility] Name Value Range Interpretation Code Description Data Joyce rce(s) Supporting Document(s) Progress Note [facility] CSFACd6fEbLKYvFm12/TCDzpOXMhi0UtOErcKUk9DQjrEBPnC6DnXNV8oW3lPFK4GKyGTdKeZlDmOVG8 lbm [file] [id number]== ID Date Data Source [id number] 03/25/2021 08:28:51 AM EDT [facility] Name Value Range Interpretation Code Description Data Joyce rce(s) Supporting Document(s) Progress Note [facility] ISTVHr4yCuBUDvOx98/HWQdtARGua0ZuBNqfQWw4LSkvIJNzG0IaDVR3kS9aOFW4TGlJJlZwOqUwOCU0 lbm [file] [id number]KKk8J ID Date Data Source [id number] 03/12/2021 03:54:17 PM EDT [facility] Name Value Range Interpretation Code Description Data Joyce rce(s) Supporting Document(s) Progress Note [facility] ICWDZz0sDcQLPfAe39/JSOseYBYkv1QmPTgyTLj7DSrhCMKmP4WsVWT5hH3tQOL4WDfVPpEdLgNoYVR8 lbm [file] 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/uv3hkrKBYr1RRT5Yxqkx9uqW/Ax/8DKe/Cdg0K [file] bmRvYmoNCnhyZWYNCjAgMzINCjAwMDAwMDAwMDAgNj A3SrAvDu1JGJDiCSVxKPVuUgJzGMNeIVZjEMwoGARnXBO7SeE4BKCrYQHhOA8KSkEnBSOmYgpzSiyuBU QoASIwer6ZQJBwMJIjYZD4FuBdDSCjIKHqEWziAGNbGAYzODOhCUPfJQTpLE3MOdGaCXQeFcd3ANIpID PbYKVqaz9IHSIhTWDhGlb0ArTpHZNvVLLkNBhaAKMt TGR2NblmDHXdLIOjYA3DWhFrAYEsAUV3HAXeGHXbGDVdhr3OBDOtVURqDBX1QIPpFUWuDZKbBBynBPHn CAT8MbZ4RSZvOWBaQB6NDzSkIMVrLFLrOHadOBOwTTLbpx0IRRKpYAZsEHH0ZsGkNLUrGQZgNVcgVROw DEFhYjKvTTUnINQfYH0YMwXdVDSdKXR7ERZdTUMjYI Kevf8EQKAgOZHiBmL7PvWmVGEpXPXsDBaoBHHxFMYmHJFxCZGhPNCoCB1YDxMsWDPjFZT6MAEnRRPtBM Upla9OZATsXYObNqy8QjCwEFUiHLQpUUlqLGHySXN7YsoyGVZaFJJdNA8REiYuKXPjFdA3CKxtISCyJF Mqey8QGGWkXEBsHEjbEnPgHZGmNTOkCAxbYUEvRUF4 MWN2FVImZERmAK6IYhJjNOToQtZhBBSaQWChQSWepp1CUNEjIPVbEyC0VoTvHNIxNUQkJUwyEAVvPMU8 FOU8LQLfZYOtCJ6OCuIqWMEgXen9YWPmBDYxBRZlau8UIXKtVNWwCZBqIAXjIIBzQPCmETexOZLxTGZ2 HYw8WYTyEYSxNI1ULhQjBOVsIok4RRdbHEXnRZSqfz 8WUVWfRUJqZJv0CMCwWSQkBCSnLAd4diCtvRFjQHf0CP9KH8FiqwZuStQISt7Eo632LGRaQKItYa1FZ5 ssTh7oIVMrFONRNz6XZCw8YnZ5CFX2EnRhXvB2BAM4YsWhJBMxUVO3NSJnTXG9EHH+MMl8OaFmTVytAZ AsNQNhJWvfXEUjYcQnVRp7QXF0WdX3Lm3yBJXOHc9+GZuegMHlbDelCNDIQuNrTUP5DSxoDUALCa1E ID Date Data Source [id number] 03/05/2021 02:29:16 PM EDT [facility] Name Value Range Interpretation Code Description Data Joyce rce(s) Supporting Document(s) Progress Note [facility] OVJRNg7tMeWNFtQr24/JTDjeTBCdg8MbOHlxKFy4TZyqELCvW5VvJTE7yQ6mDHA6CSsCHoKsStHsFsD7 lbm [file] dGE+DQogICAgICAgICAgICAgICAgICAgICAgICAgIC AgICAgICAgICAgICAgICAgICAgICAgICAgICAgICAgICAgICAgICAgICAgICAgICAgICAgICAgICAgIC AgICAgICAgICAgICAgDQogICAgICAgICAgICAgICAgICAgICAgICAgICAgICAgICAgICAgICAgICAgIC AgICAgICAgICAgICAgICAgICAgICAgICAgICAgICAg ICAgICAgICAgICAgICAgICAgICAgICAgDQogICAgICAgICAgICAgICAgICAgICAgICAgICAgICAgICAg ICAgICAgICAgICAgICAgICAgICAgICAgICAgICAgICAgICAgICAgICAgICAgICAgICAgICAgICAgICAg ICAgICAgDQogICAgICAgICAgICAgICAgICAgICAgIC AgICAgICAgICAgICAgICAgICAgICAgICAgICAgICAgICAgICAgICAgICAgICAgICAgICAgICAgICAgIC AgICAgICAgICAgICAgICAgDQogICAgICAgICAgICAgICAgICAgICAgICAgICAgICAgICAgICAgICAgIC AgICAgICAgICAgICAgICAgICAgICAgICAgICAgICAg ICAgICAgICAgICAgICAgICAgICAgICAgICAgDQogICAgICAgICAgICAgICAgICAgICAgICAgICAgICAg ICAgICAgICAgICAgICAgICAgICAgICAgICAgICAgICAgICAgICAgICAgICAgICAgICAgICAgICAgICAg ICAgICAgICAgDQogICAgICAgICAgICAgICAgICAgIC AgICAgICAgICAgICAgICAgICAgICAgICAgICAgICAgICAgICAgICAgICAgICAgICAgICAgICAgICAgIC AgICAgICAgICAgICAgICAgICAgDQogICAgICAgICAgICAgICAgICAgICAgICAgICAgICAgICAgICAgIC AgICAgICAgICAgICAgICAgICAgICAgICAgICAgICAg ICAgICAgICAgICAgICAgICAgICAgICAgICAgICAgDQogICAgICAgICAgICAgICAgICAgICAgICAgICAg ICAgICAgICAgICAgICAgICAgICAgICAgICAgICAgICAgICAgICAgICAgICAgICAgICAgICAgICAgICAg ICAgICAgICAgICAgDQogICAgICAgICAgICAgICAgIC AgICAgICAgICAgICAgICAgICAgICAgICAgICAgICAgICAgICAgICAgICAgICAgICAgICAgICAgICAgIC AkMPVgNZGzODZgFXMrSDQpYERnUZTaHVy6H5onBNTcMJCyIO7uKXm7Ra8+RGiEGkRwNOR8tlBhzL7ZPC 2jo3JzUOexLYKci7FvNMb7CS5OYARxYUzvUR7VDSjn cl4ASVGcKUWymTAPk5lxYpHsOLW9TWOjTniwHD4NWTYmI8ngygYdLQIfSIGDIKssNYVBBKGvQVGaSxCq RgGcYTDxME1VFVJsN008mkQjGD2NNk7VTzGqHR2vje5XVxcuZWGwTzwPRwv0AHlcCO1TsQHnwKIhLDKm SRUXVaFgU8ipb3RyDeVkFYZGSPftHP3Zp2GkcOEiXV o+Dh0TBS0ea2SwXOyrGVMcLF3alj2PXQbARbMaL8OgoRhiMHKtm0zpJRItRW1jaYObUJL6TZLicvUqB5 bivGdscccrSYWlYTQdZq7cUW2cJVGzFTAePdEnICUFUA8ZOBInDOAlyVHfXIVsDXWVWA0YXAczTOC8RQ ExccTufSZsBTjsLY3HBWYfzyRhOueeIQQLKEb+Pg0K PQ6hz2UnQHc3UICud2CcZUp2WX0QDIStNWbsEUCaCJ0ez8IhG4A8AxT6wESdV8tsnfriP0EzusSnuxCi MSTwEOSqSF3YPZ2RHW5BQWWzPVfpNJ4BNDT8LMi2ZxY4TnwiZWNlRJC8H32gCHujFJ3BPNe4Z5JtG2BQ DVMvLMMKFGMmwVA0IAZLEs0PC7IOKstXKXNYAu4EQg MxA8NRK6cSI92ZJS4UMXN+PiANCj4+KEesdpGvZwpYVfYvCLKui3RrEGa2DL1JESIiCBgeKA2WXCLkoW 5iSEzaOB7VCzCpLyVvWWATVqIrK36kqIYrWWk8S5YfWkPlHIHmSacgFSPdZWksRdIoNCGoSqAsWAguYO 4+ID4+MLgcOI1GWFweliQjPMNyIb1PESDfKDMbJV3y WEBgFTInJ4T8uAnuGLRYQeKbG9saoqcrAY3tIHWoA313fPwfjsFlWVB4YEDaXg7GEJVxPKR0CSBebIXw NgqkAOZRLXfmUJ2KyCAxACI2oH8eJJbmFPKzVYKmQ9bTOrTlpVqaJF71eWsdyrRidCHwHTu+Eq8BWL2c v0JmRWa5flNgCYugQWCtBRzfAPCmNOItTGKjIAC8IC H7HQOFUjOwLFVwVIQkBFwiZDSeXPAkkt3OBACvXBBeErQzHUFhNMCcJDOeJIubVHVqEIR4ZuZ0JRInIK KcZO8BOrIdCJOeMFIlZJhjCHFyBAOirj2TMGTwOKXfAzD9DUOyYGHqJBSxHAaaAEWvPAV6EuEkIZCtIF NuRT9ZEdQrITAnYUD4TbriZUOlNGCxjj9JSVNhHZWy HyJ7HVGmZXDjHNXkHDzjQLOqHRM4TQyaTQJpBCMkHP3DMyQcTPWnIHk6JHSlPRAvNPKkmh0NVFGkFSZz REf5IJBuJHWzVFDaLRzzADLaKWNeWZU1UYFxETFtVO4QCxYpSXGrZZMwPRKrERYdTTKqlp7JUOTbZRJf RwIsOZOaFBJqYHGuLOscIBMoMQOsHHO9QITiQZNaYR 7XUaMvZHFcYQH8YMVwOHUoJMEfjf1JREAsFGXfRmW9ZWCjNGAoTXEgGWghHRTeGDLbWxQuUSGmRPXbZJ 7RJqZlAFYuLTP1UvsjQYSnPFXwhp2WXUImZJZyLCV4EZSuHXZcNLMqYAtnDYDiAQJ0Lep9BQWdGBNjDU 2NKeAxLWGsJhJ7BKUjHEQjQFWbkh1OEELhWDEpBlC8 WhFbRKObRYUgIYpjJAWkSHZ1Mra9ADSlEZAyNL7LPmFiNDZqXugiNWWzADCmPAZbny4IMCZlQXTiVxQe ZCScTVFtXSDmTKpeXFHdRKH1NzV1ICRbMYDjTZ1EZtSkYTJtJxaoJrNhYPXeELBxnv9ZJJJfJIHeSWN4 VOSoJZQaQGYiKZjkRHJhZVU5BPP7UZEpVADiEI8MQi TjQOWlHzd6DeudIWGmMXTnky3SnGHdtJeqrb8ZNWuEYo8QcQhzCDHtAVytId3rnVOnCMEgNBCVTd8Ahv MlIDQmQBRNVJgfGQPeAFN9SLXbWzA5YIO2RZJuFHIdPCDnG2HoIKpuFHJ2Lbl5TxB0LTP3OIBoJkU4PR bwQZVnISZeUXVaBuFxH4BeMQbjDLV+VK8hHIx+Xv4Hw9JsjfQ0jkBqIPumGUQuIz3CXHCMK3ZLTj== ID Date Data Source [id number] 02/21/2021 04:51:54 PM EDT [facility] Name Value Range Interpretation Code Description Data Joyce rce(s) Supporting Document(s) Progress Note [facility] TEAUIu0sIdKFHgSd58/BGHssZZCwf2XiXWukCJo6FXzvWCVpJ4TuEJJ0sE4iEZO3TIjKVjCxYmGnVeD9 lbm [file] 9GDQo= ID Date Data Source [id number] 02/18/2021 04:59:02 PM EDT [facility] NM CARDIAC VENTRICULOGRAM EF AT REST 784 72FINAL RESULTInterpreted by:Emigdio Morataya MDINDICATION: Concerns for 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 COMPARISON: None. FINDINGS: In the BELIZEAN projection, the left ventricular ejection fraction was 66.8 %. Analysis of the gated study reveals no abnormalities of wall motion. Neither ventricle is enlarged. IMPRESSION:Normal resting ventriculogram. Resting left ventricular ejection fraction of 66.8%, which is within normal limits.This document has been electronically signed by Daron Alonso MD on 02/18/2021 4:56 PM Name Value Range Interpretation Code Description Data Joyce rce(s) Supporting Document(s) ID Date Data Source [id number] 02/05/2021 05:09:49 PM EDT [facility] Name Value Range Interpretation Code Description Data Joyce rce(s) Supporting Document(s) Progress Note [facility] GAZDSn9yMyEHWnKc95/GRJpxTTZtn0OiNQdkGMg7QQrkNZHhN1MdFLN2bV0jBDR9TVpWQtWsJdBpMpKy lbm [file] cQGfVs5WYhq5BrHXRtPmUZ9GVZt= ID Date Data Source [id number] 01/29/2021 05:37:02 PM EDT [facility] Name Value Range Interpretation Code Description Data Joyce rce(s) Supporting Document(s) Progress Note [facility] CSSDSt3uHrPLWvXx77/KYNzpVINay2HwBQnnSTl7CVumUYAdK9JyQWU6yL9wUKZ4MPqVWkSwCoFtMrDb lbm [file] [id number]== ID Date Data Source [id number] 01/27/2021 08:54:32 AM EDT [facility] Name Value Range Interpretation Code Description Data Joyce rce(s) Supporting Document(s) Progress Note [facility] DLOACx0qOjCCOeMf24/DWWsmDKKez8QnXLpzCNt4DXjwTMJjN0JzATP4tG1uRNM5NUfTRdLdVjRpQcCt lbm [file] ID Date Data Source [id number] 01/20/2021 02:46:54 PM EDT [facility] Name Value Range Interpretation Code Description Data Joyce rce(s) Supporting Document(s) Progress Note [facility] NNJAFh7sSaFOEqIk27/HWVlkIIWyy5XdGLtuCWw8YPkjQOFgY3UqICB7cF5iDGQ5LRdSKhTeIlPiDhP3 lbm [file] JeIYNtHsE7HuF+RR9nYHp+Lb3Fg2AlgmY2akIrEPrmWNQ6BJ7ZZKOQC7NRAd== ID Date Data Source [id number] 01/09/2021 02:47:36 PM EDT [facility] Name Value Range Interpretation Code Description Data Joyce rce(s) Supporting Document(s) Leukocytes [#/volume] in Blood by Automated count 8.1 10*3/uL 4-10 [facility] Erythrocytes [#/volume] in Blood by Automated count 4.45 10*6/uL 4.1- 5.3 [facility] Hemoglobin [Mass/volume] in Blood 14.0 g/dL 11.5-15.5 [facility] Hematocrit [Volume Fraction] of Blood by Automated count 41.5 % 3 6-45 [facility] Erythrocyte mean corpuscular volume [Entitic volume] by Auto mated count 93.4 fL 80-96 [facility] Erythrocyte mean corpuscular hemoglobin [Entitic mass] by Automated count 31.4 pg 27-33 [facility] Erythrocyte mean corpuscular hemoglobin concentration [Mass/volume] by Automated count 33.7 g/dL 32.0-36.0 [facility] width [Ratio] by Automated count 14.0 % 11.5-14.5 [facility] Platelets [#/volume] in Blood by Automated count 237 10*3/uL 150-400 [facility] Differential cell count method - Blood [facility] Neutrophils/100 leukocytes in Blood by Automated count 55 % [facility] Lymphocytes/100 leukocytes in Blood by Automated count 34 % [facility] Monocytes/100 leukocytes in Blood by Automated count 8 % [facility] Eosinophils/100 leukocytes in Blood by Automated count 2 % [facility] Basophils/100 leukocytes in Blood by Automated count 1 % [facility] Neutrophils [#/volume] in Blood by Automated count 4.49 10*3/uL 1.8-7 .0 [facility] Lymphocytes [#/volume] in Blood by Automated count 2.77 10*3/uL 1.2-4 .0 [facility] Monocytes [#/volume] in Blood by Automated count 0.63 10*3/uL 0-0.8 [facility] Eosinophils [#/volume] in Blood by Automated count 0.17 10*3/uL 0-0.5 [facility] Basophils [#/volume] in Blood by Automated count 0.07 10*3/uL 0-0.2 [facility] Nucleated erythrocytes/100 leukocytes [Ratio] in Blood by Automated count 0 /100{WBCs} 0-0 [facility] ID Date Data Source [id number] 01/09/2021 03:20:38 PM EDT [facility] Name Value Range Interpretation Code Description Data Joyce rce(s) Supporting Document(s) Albumin [Mass/volume] in Serum or Plasma by Bromocresol green (BCG) dye binding method 3.8 g/dL 3.5-5.2 [facility] Bil[facility].total [Mass/volume] in Serum or Plasma <1.2 [facility] Calcium [Mass/volume] in Serum or Plasma 9.2 mg/dL 8.6-10.0 [facility] Chloride [Moles/volume] in Serum or Plasma 99 mmol/L 98-107 [facility] Creatinine [Mass/volume] in Serum or Plasma 0.65 mg/dL 0.50-0.90 [facility] Glucose [Mass/volume] in Serum or Plasma 86 mg/dL 70-140 [facility] Alkaline phosphatase [Enzymatic activity/volume] in Serum or Plasma 96 U/L 35-104 [facility] Potassium [Moles/volume] in Serum or Plasma 4.1 mmol/L 3.4-5.1 [facility] Protein [Mass/volume] in Serum or Plasma 6.8 g/dL 6.4-8.3 [facility] Sodium [Moles/volume] in Serum or Plasma 132 mmol/L 136-145 L [facility] Aspartate aminotransferase [Enzymatic activity/volume] in Serum or Plasma 21 U/L <32 [facility] Urea nitrogen [Mass/volume] in Serum or Plasma 12 mg/dL 6-20 [facility] Osmolality of Serum or Plasma by calculation 273 mosm/kg 275-300 L [facility] Creatinine/Urea nitrogen [Mass Ratio] in Serum or Plasma 18 [facility] Bicarbonate [Moles/volume] in Serum 26 mmol/L 22-29 [facility] Alanine aminotransferase [Enzymatic activity/volume] in Seru m or Plasma 15 U/L <33 [facility] Anion gap 3 in Serum or Plasma 8 mmol/L 8-15 [facility] Glomerular filtration rate/1.73 sq M pre dicted among non-blacks [Volume Rate/Area] in Serum or Plasma by Creatinine-based formula (MDRD) >6 0 [facility] Glomerular filtration rate/1.73 sq M pre dicted among blacks [Volume Rate/Area] in Serum or Plasma by Creatinine-based formula (MDRD) >60 [facility] ID Date Data Source [id number] 12/30/2020 03:49:54 PM EDT [facility] Name Value Range Interpretation Code Description Data Joyce rce(s) Supporting Document(s) Progress Note [facility] JYYMCz9wOsRJWmBm81/SWAjtWDJpm6ElOKndPLz3IOnbDAVhG3XeYBD2vB0aJDY6VBtHNtAhLsNdZRB0 lbm [file] YNCg== ID Date Data Source [id number] 12/19/2020 02:34:52 PM EDT [facility] Name Value Range Interpretation Code Description Data Joyce e(s) Supporting Document(s) Leukocytes [#/volume] in Blood by Automated count 7.6 10*3/uL 4-10 [facility] Erythrocytes [#/volume] in Blood by Automated count 4.23 10*6/uL 4.1- 5.3 [facility] Hemoglobin [Mass/volume] in Blood 13.6 g/dL 11.5-15.5 [facility] Hematocrit [Volume Fraction] of Blood by Automated count 39.5 % 3 6-45 [facility] Erythrocyte mean corpuscular volume [Entitic volume] by Auto mated count 93.5 fL 80-96 [facility] Erythrocyte mean corpuscular hemoglobin [Entitic mass] by Automated count 32.1 pg 27-33 [facility] Erythrocyte mean corpuscular hemoglobin concentration [Mass/volume] by Automated count 34.4 g/dL 32.0-36.0 [facility] Erythrocyte distribution width [Ratio] by Automated count 14.7 % 11.5-14.5 H [facility] Platelets [#/volume] in Blood by Automated count 259 10*3/uL 150-400 [facility] Differential cell count method - Blood [facility] Neutrophils/100 leukocytes in Blood by Automated count 56 % [facility] Lymphocytes/100 leukocytes in Blood by Automated count 31 % [facility] Monocytes/100 leukocytes in Blood by Automated count 8 % [facility] Eosinophils/100 leukocytes in Blood by Automated count 4 % [facility] Basophils/100 leukocytes in Blood by Automated count 1 % [facility] Neutrophils [#/volume] in Blood by Automated count 4.31 10*3/uL 1.8-7 .0 [facility] Lymphocytes [#/volume] in Blood by Automated count 2.38 10*3/uL 1.2-4 .0 [facility] Monocytes [#/volume] in Blood by Automated count 0.57 10*3/uL 0-0.8 [facility] Eosinophils [#/volume] in Blood by Automated count 0.27 10*3/uL 0-0.5 [facility] Basophils [#/volume] in Blood by Automated count 0.09 10*3/uL 0-0.2 [facility] Nucleated erythrocytes/100 leukocytes [Ratio] in Blood by Automated count 0 /100{WBCs} 0-0 [facility] ID Date Data Source [id number] 12/19/2020 03:13:34 PM EDT [facility] Name Value Range Interpretation Code Description Data Joyce rce(s) Supporting Document(s) Albumin [Mass/volume] in Serum or Plasma by Bromocresol green (BCG) dye binding method 4.1 g/dL 3.5-5.2 [facility] Bilirubin.total [Mass/volume] in Serum or Plasma <1.2 [facility] Calcium [Mass/volume] in Serum or Plasma 8.9 mg/dL 8.6-10.0 [facility] Chloride [Moles/volume] in Serum or Plasma 102 mmol/L 98-107 [facility] Creatinine [Mass/volume] in Serum or Plasma 0.69 mg/dL 0.50-0.90 [facility] Glucose [Mass/volume] in Serum or Plasma 102 mg/dL 70-140 [facility] [facility] Alkaline phosphatase [Enzymatic activity/volume] in Serum or Plasma 108 U/L 35-104 [facility] Potassium [Moles/volume] in Serum or Plasma 3.6 mmol/L 3.4-5.1 [facility] Protein [Mass/volume] in Serum or Plasma 6.9 g/dL 6.4-8.3 [facility] Sodium [Moles/volume] in Serum or Plasma 138 mmol/L 136-145 [facility] Aspartate aminotransferase [Enzymatic activity/volume] in Serum or Plasma 33 U/L <32 [facility] Urea nitrogen [Mass/volume] in Serum or Plasma 8 mg/dL 6-20 [facility] Osmolality of Serum or Plasma by calculation 285 mosm/kg 275-300 [facility] Creatinine/Urea nitrogen [Mass Ratio] in Serum or Plasma 12 [facility] Bicarbonate [Moles/volume] in Serum 26 mmol/L 22-29 [facility] Alanine aminotransferase [Enzymatic activity/volume] in Seru m or Plasma 27 U/L <33 [facility] Anion gap 3 in Serum or Plasma 10 mmol/L 8-15 [facility] Glomerular filtration rate/1.73 sq M pre dicted among non-blacks [Volume Rate/Area] in Serum or Plasma by Creatinine-based formula (MDRD) >6 0 [facility] Glomerular filtration rate/1.73 sq M pre dicted among blacks [Volume Rate/Area] in Serum or Plasma by Creatinine-based formula (MDRD) >60 [facility] ID Date Data Source [id number] 12/04/2020 06:55:32 AM EDT [facility] Name Value Range Interpretation Code Description Data Joyce rce(s) Supporting Document(s) Progress Note [facility] GLRNMz1hItQCLzGj60/HOSpfYJZhb4DlVVouODh8LIdpZQKnZ2DwYRW7rD6pKDG7DSyNBjXsOnYnBQM5 [facility] [file] 0K ID Date Data Source [id number] 12/03/2020 02:49:43 PM EDT [facility] Name Value Range Interpretation Code Description Data Joyce rce(s) Supporting Document(s) Progress Note [facility] QMLSWy0bXxSQRcHf80/SAJqyFDAhg8EePJvgNNb1INfnNDKpP4FaWID2oU5aDOC5QHzEIrAcHbXmPTC1 lbm [file] AgICAgICAgICAgICAgICAgICAgICAgICAgICAgICAg ICAgICAgICAgICAgICAgICAgICAgICAgICAgICAgICAgICAgICAgICAgICAgICAgICAgICAgICAgICAg GZXcXNYyIY7QVNMqPEYuTVBhCFWtBDJqGRSzFUYeSBEmMXGlKQPaVEIuWTTfQSXhOBWlTXOoURIlYKLw ICAgICAgICAgICAgICAgICAgICAgICAgICAgICAgIC GhBXLsNIVdOOJoVWKdBAVjKS8QGSGaSROxUECbYXLrYGJuWYAcYTFxOJVbEKVrXBZsQZMrKCBiEABpRY AgICAgICAgICAgICAgICAgICAgICAgICAgICAgICAgICAgICAgICAgICAgICAgICAgICAgICAgICAgIA 0KICAgICAgICAgICAgICAgICAgICAgICAgICAgICAg ICAgICAgICAgICAgICAgICAgICAgICAgICAgICAgICAgICAgICAgICAgICAgICAgICAgICAgICAgICAg VYYcNKLfHNLqZN7XCHYaWIVpIPVnGRYjZCBtOPVdRAWhVFOmLMHiAYEmNBJzIVHkRJYqXBKvVBXoTKHe ICAgICAgICAgICAgICAgICAgICAgICAgICAgICAgIC KfQVStIAYzMFYtPMVkLZPoDPJxVC1FYJScRSKkMYPwHBMuRFWnLPNwJCQiTJQzRNEeAIViJQRjDGCtRU AgICAgICAgICAgICAgICAgICAgICAgICAgICAgICAgICAgICAgICAgICAgICAgICAgICAgICAgICAgIC TmCO3SVOGsVFEuYQEuWYLxNRSbKQLmBWCyOOTwDSWr ICAgICAgICAgICAgICAgICAgICAgICAgICAgICAgICAgICAgICAgICAgICAgICAgICAgICAgICAgICAg PAIgQWIcGWNmKCHpYU7DWZOkQYWnBTRwZMGrATKgRQMjDAEnZAPaLKSgUNWgLITqALPcZBIvLVSuMCKh ICAgICAgICAgICAgICAgICAgICAgICAgICAgICAgIC MkHPEyRXQvKVVwJOYrTYPzWDMjYLFgHX8DLGJeRNHsIVPmCWFsFPVkXSKdZEBuUGVgAFRrDBDwBCYuVP AgICAgICAgICAgICAgICAgICAgICAgICAgICAgICAgICAgICAgICAgICAgICAgICAgICAgICAgICAgIC PzOITyOY3FBA22dFDme8M3TKNnZX3ykbm/Rv2PQQgn hjIgyMNxKE9GQcLnNK8cyi3OCoEmAJ5fyi9OLBoAPbLtL9K1jDZeTWIyTWCYCfSsW16wHFjiPl53FEfm TQDcCrBbSYw6Nw4LFuRlH3xhTLRiFdY0XWBeAgH5EZLqJoE0LPDaKbBrTLWuZZDdBTXdVMNFPZR0FXNb ZlBkBqXxHWCwZHtvVBWSKALxWELgFuCzIEceFW3Nb2 MlgVK3TAd+Ry3PPV4sx3JnUEf8UrTbIB3jwy3AUYrNNqThB4HrgcA2FEZ4HUVnRt3UTJXiIBPbcWQ2TJ IySWFJLmDwH1TxwM93AEGABo4+DMizmlVkEajKGlY1DJAyr1EtWYb4SF9VNCLzEBg8eLOwKIDsI3Vss2 XtXv88VAFxUdqnEzKqix6jWTNcMCVrWDfeSGIdNCQg YI8nUc0oRLNrBFEmNtFmUNWZMP6POHVxKQOlnQMlZCYoDOFIIO7RDVgbQEE8NBVtokAirVJhICoaFC8S YXJlbnQgNDMgMCBSDQo+Uv4FOR5lb2CtMPt0KDWyZQ1ajx3MOZwELeSaP6Q4wSYwS4U3UTbuCv2MUATv GSFnIVVoGTNXNKueBG3ZNJ8ollF5XF7CgKGnTWKcZI IkjUXxSZo2C04nzMVjTBztNK7WBBB+Ron+Vn1FXCVaRPOwVQBdXdFcUFMFAzYyT8DyD3FQu0CxO9QtTK 36oFyrbgUtMJvoHG5RAC0gPBNqLOCDDG3OgKJokY9puoH5CnUbPTMVQgJmT65unFGqRUYzQTClECHtBs 3PDVMnC4KfxiQobTkizrVbRXFtPTUKBJ9DKEbnagZp sHKszSyqDQ63fQlvAP8QLw0ODnKyZV4trb1NwGNeUf2YFNY7Fq6VEQBcQZBsFRNzYSH3GLZfWiGeDQei IBEkSJAsODJ0QPGxYULvVN1MAlMbKRSgMcc0WuIgMAZgDKFyca0EACMbPQP2OJRsHOJjFDLvHSFoRDue ISZsBZPjEMV8BAAzZWFnNG5ZQxRxBKMiEGL9RNVvWF QcTAEasq9WNZHxQCZiYIjzXvCqLRVuCVKwZSbqYJBlBYRdNKtfZYIoGIWyTH9QSnZnNWSxJYMbLASdNA BbHBIuoo6NCUPpMPPdKJO1LFYhIJQsETVhEBypKKBmRGF7SHT6BIWuEJJpOZ0DTnGoSOWbIEY8MShhQL WtXBHoyy4LOOWhYPKrXsylJUYhXBJqGMXqXNbrMYNi JPE6SESbHCTxTBVeBS7CQlXmYBLoMLnpEcjyDTSwMSVznm3KUKXcFKWaURhiPBGyKJWqGWIdNGsvMANw IWVeXKW4VFIsFWUxND8DHmVmLMZxNcB7REEbMLZvYPEmrm3UHSHdVVSeHwK6EuFeXHBcZGSxKTzyCWWb ETBmNFW2INJkEXDjBY0IPiTrMVUdAtCaOKKmJRLbWI Xyja1AWMYfWFYgVStcWlCmNBPxXARrLBniUWKxSKN4WHA6DBHiSEMdIM9CKcWrMBFaIvR0QHueGMEzCH Tsvu0MJCBtZKNcXcD9YhQiAMOeLEByYGtlREJzEBE7ElI3UYSdXDBfLM8LIoMwIVQqVxpgBqpkPTNgZY Rnwh6URZJpPJKkRuUxEBXhBRLvIUBiCRweBATcXKT8 LtV3FYIhVUMpXC8KGlXwRODtEJxiRIsaERPtNPQski9CBXZdRMK3FZP6EhUvXFItMKIeCQnxRCJcVOB7 NnfiXQHzVLRxIP1MYoUnJVMcVAb8ZsXoZHRiMXMsyf9LFKFnHBS3SMT3GUJkLTUxCZQpZUktRDGaIIOi XSEtFFWnVNAhNI9DIfBfCTJpZXWqRCMcXDHuATSdzr 8EOMKvIFN0PEE2BGYrALOqLWInPUboGVSaHRr0SHE7YSBxDJKsBT3YShLnHKXtCrk9GmodIQErPIWqkk 7PIKPpOGY5IKj1ObVuROZsCSDyYVutPTStAAc3HxUaMCBiLLIzLW0VFvXlHZNyZoi4GHPtZAUrFZGvzi 0APINtUDV0UMA0RLVaDPRhQBNbWSbjWDKqUZreZxv0 PCJvFPIdQH0SWzIzMDZtJFB3WMnaWCEiZIFebu2UOKUoAPU6OLq2VnDtHYFgDFZwWVd8lxXddIGbKJc1 WD3VT3HrplVcFTMEBw5Kv660QJE3FMWaAs6CK7rdXv2gVPIdJZYTJp6GNTp0KmW6NWZ5JPQmOaY2GIJw BJTbDIXlMIUoGiN6XVByBXz+DZxqPrW0IOl3YVUhAY MvEBItZSQeFAXsFdTcTuv2U6KwUM0dKSPQEq3+CUcaoCPuxLdvCYZNEwnhBFKfYUcoMXSOLj2V ID Date Data Source [id number] 12/03/2020 09:04:30 AM EDT [facility] Name Value Range Interpretation Code Description Data Joyce rce(s) Supporting Document(s) Progress Note [facility] KLYWKb8iSlOSFkFn27/JQVbfOZIhz7FaCGxuWDb0IBaaKBOdJ9BiRBD2zK2nGAB9EHbKQhKnOnYoBKN7 lbm [file] ID Date Data Source [id number] 11/29/2020 05:30:17 PM EDT [facility] Name Value Range Interpretation Code Description Data Joyce rce(s) Supporting Document(s) Progress Note [facility] IXKNWb5tJsFJNaAi85/UUUowXOSas5IhFFfgRKy2EStsOAIdU7WyBEZ0mT8iNJI5GNgUPiUeHoHqSVAu lbm [file] SbPlWtT2Y5Y6XvIwLOMsASX6CWI+GI1uNBj+Ht5Zq9HbsnX4aiHgDWyrSnAtYW6KHQJEQ9YBGl== ID Date Data Source [id number] 11/29/2020 10:00:03 AM EDT [facility] Name Value Range Interpretation Code Description Data Joyce rce(s) Supporting Document(s) Progress Note [facility] APZDWv7fUkZLWcWe61/BCKxxAEHhj4RnZXraNSw4IIppFIYiO6MpEHM0vO8sULU4HHbPKlGcXhGkRJXz lbm [file] AgICAgICAgICAgICAgICAgICAgICAgICAgICAgICAgICAgICAgICAgICAgICAgICAgICAgICAgICAgIC AgICAgICAgICAgICAgICAgICAgICAgICAgICAgICAgICANCiAgICAgICAgICAgICAgICAgICAgICAgIC AgICAgICAgICAgICAgICAgICAgICAgICAgICAgICAg ICAgICAgICAgICAgICAgICAgICAgICAgICAgICAgICAgICAgICAgICAgICANCiAgICAgICAgICAgICAg ICAgICAgICAgICAgICAgICAgICAgICAgICAgICAgICAgICAgICAgICAgICAgICAgICAgICAgICAgICAg ICAgICAgICAgICAgICAgICAgICAgICAgICANCiAgIC AgICAgICAgICAgICAgICAgICAgICAgICAgICAgICAgICAgICAgICAgICAgICAgICAgICAgICAgICAgIC AgICAgICAgICAgICAgICAgICAgICAgICAgICAgICAgICAgICANCiAgICAgICAgICAgICAgICAgICAgIC AgICAgICAgICAgICAgICAgICAgICAgICAgICAgICAg ICAgICAgICAgICAgICAgICAgICAgICAgICAgICAgICAgICAgICAgICAgICAgICANCiAgICAgICAgICAg ICAgICAgICAgICAgICAgICAgICAgICAgICAgICAgICAgICAgICAgICAgICAgICAgICAgICAgICAgICAg ICAgICAgICAgICAgICAgICAgICAgICAgICAgICANCi AgICAgICAgICAgICAgICAgICAgICAgICAgICAgICAgICAgICAgICAgICAgICAgICAgICAgICAgICAgIC AgICAgICAgICAgICAgICAgICAgICAgICAgICAgICAgICAgICAgICANCiAgICAgICAgICAgICAgICAgIC AgICAgICAgICAgICAgICAgICAgICAgICAgICAgICAg ICAgICAgICAgICAgICAgICAgICAgICAgICAgICAgICAgICAgICAgICAgICAgICAgICANCiAgICAgICAg ICAgICAgICAgICAgICAgICAgICAgICAgICAgICAgICAgICAgICAgICAgICAgICAgICAgICAgICAgICAg ICAgICAgICAgICAgICAgICAgICAgICAgICAgICAgIC ANCiAgICAgICAgICAgICAgICAgICAgICAgICAgICAgICAgICAgICAgICAgICAgICAgICAgICAgICAgIC AgICAgICAgICAgICAgICAgICAgICAgICAgICAgICAgICAgICAgICAgICANCjw/lYPhT0ojzYQllwQ5V6 epDi0QHo3HUW5pr1MaROXbSYpohnTxMisSAsQsARUa UlhKOos7TCpgNO3UiHWvU5FzM7CpBXfmZU2KGFHyYLOorAKqAWYbSUAtBlB6FKQdDVoqUR4UkZRiZDbb IITuJXYpNV0FICYeG799bbIhVA9MAp7HNeLnQH4frs2SORvpOTFjVyoRPbw7MDifWH5RoWRllDOtEMLd EJMHSaClD1skv2EeJkFeFTHWBNgqWB1Yk4TxaYIuKQ o+Xv7PKX4gl6WgDIyyLFZeSR6ehg0DCKjUCmQwB4TyoWtwVWFgh4dzZWAzEL4tvCHiONV9YPcxjeGmIA AzSDStmRdiUIIpxTYgyCWvIPgVM1zlAOToBV6oDa9pJGYpPKOpYlQ0XJSSDB5KQPPpQYSjuIGpOWPjNU CFVH3FGVzhHAC5HKWtovSnwSLwONvbQJ5EQTGlhvIp MTkgMCBSDQo+Ov7PCJ6jp0GpSXmbVDJmRD5dip8VGQsEDvYsO9H5vDVsI3E5FNjsNd8IESLpDQZnVJtt JFUKBUmjGF7TRR3mqgI3OE9OfGHqPJLeDLVygZStJVa4C47iiQUgYTbpPJ1RLMY+Ron+Me9ASKYwQRAi LDHpFjIxABODZuIvZ1ZqM5TOq3OwX8KpOY29hVmegt OlCGvdME1UBH2kXWLuKGBYDF7NfGRcsT3wyrKrDHJtTBOTIjDfL78dwOVcXHNoAVJ0KKHqOj7NADSwT3 KkjfJumVhukzCdHDKrVBWEWO5UCSspadXiiEHorYqzMJ26uOcxUB4AGm5ANtHzUX0bsw5LnVKiTz5YKH PiVj1YTVYqFYLqEYJiZNK9RDExLoLwUUekSSAqEFUb ORX8EONdRZBoZU0GZwSrPPBgOAw4TyTtXATcRBGuma8JSOUrWMVxPJY0OIYrHVFiGCDtDYzrRARrNJOh TRK9NYKsXMJiSE4LTwDlUUZcSST9OQygTLPfMCYatr4EXXReAPWoDoInVlNiDZGkOLZtZAjnTGQaNJZn XHNsXWEkZUChAG3CEsCeFRYnOYIaUVleZHTaBUJnua 5XNREbUATnKBUmVeObUVZmILNmPSroUWDlPID8Djj2UFZxIROyWI2VEzStDUHnRQX5RBjvPKVoQAAwrp 7CURXxXCFlUDG4QXDeQYMeCPPoPTsuGPMwJLG1KDN7LGShQGAvNN8WEkQiLMOvYUlfGMCgAPAzSEGeha 2SQMBtCRPnRdO9PPYaVIJvLCUwIWjeDJYdJTJ4EZM6 UNSgISByYK7OVmMhPAKfMLl9QWRhXGXgIWEedg8DIOWvGSUsZFP9WECpJEBcJJGaBTasNUOgSSS9Bmn6 RZEpIKOaNL0CRhRyPBZkQZm8EXsmVTJeXUHqai4VLTFlTTQfBSCxUZTmJCUaGKYgGTv8rkTjwRRgKGc7 SL6YD3RadgTrQfERTk2Ds108CMFvRQDgGw6WZ4adBw 0sDYIfTWAWXy9TXWd5NuRsRIPtMgLoRLHgUXfiFJI8ILKtQQwmIZN9HuFvAsg+FHdrHwAyXXI3NzJiHf G3E9RdESY2S9C0JFF9HdO0GcPwRY7cIVWMUs9+YAuemZKcjWfwOHRWGfDeWwPjFJfpMLYMXy0L ID Date Data Source [id number] 11/28/2020 10:34:06 AM EDT [facility] Name Value Range Interpretation Code Description Data Joyce rce(s) Supporting Document(s) Leukocytes [#/volume] in Blood by Automated count 6.9 10*3/uL 4-10 [facility] Erythrocytes [#/volume] in Blood by Automated count 4.38 10*6/uL 4.1- 5.3 [facility] Hemoglobin [Mass/volume] in Blood 13.8 g/dL 11.5-15.5 [facility] Hematocrit [Volume Fraction] of Blood by Automated count 41.2 % 3 6-45 [facility] Erythrocyte mean corpuscular volume [Entitic volume] by Auto mated count 94.2 fL 80-96 [facility] Erythrocyte mean corpuscular hemoglobin [Entitic mass] by Automated count 31.6 pg 27-33 [facility] Erythrocyte mean corpuscular hemoglobin concentration [Mass/volume] by Autom[facility] 33.6 g[facility] width [Ratio] by Automated count 14.7 % 11.5-14.5 H [facility] Platelets [#/volume] in Blood by Automated count 293 10*3/uL 150-400 [facility] Differential cell count method - Blood [facility] Neutrophils/100 leukocytes in Blood by Automated count 61 % [facility] Lymphocytes/100 leukocytes in Blood by Automated count 28 % [facility] Monocytes/100 leukocytes in Blood by Automated count 8 % [facility] Eosinophils/100 leukocytes in Blood by Automated count 2 % [facility] Basophils/100 leukocytes in Blood by Automated count 1 % [facility] Neutrophils [#/volume] in Blood by Automated count 4.26 10*3/uL 1.8-7 .0 [facility] Lymphocytes [#/volume] in Blood by Automated count 1.93 10*3/uL 1.2-4 .0 [facility] Monocytes [#/volume] in Blood by Automated count 0.55 10*3/uL 0-0.8 [facility] Eosinophils [#/volume] in Blood by Automated count 0.14 10*3/uL 0-0.5 [facility] Basophils [#/volume] in Blood by Automated count 0.05 10*3/uL 0-0.2 [facility] Nucleated erythrocytes/100 leukocytes [Ratio] in Blood by Automated count 0 /100{WBCs} 0-0 [facility] ID Date Data Source [id number] 11/28/2020 11:15:33 AM EDT [facility] Name Value Range Interpretation Code Description Data Joyce rce(s) Supporting Document(s) Albumin [Mass/volume] in Serum or Plasma by Bromocresol green (BCG) dye binding method 4.1 g/dL 3.5-5.[facility] Bil[facility].total [Mass/volume] in Serum or Plasma <1.2 [facility] Calcium [Mass/volume] in Serum or Plasma 9.4 mg/dL 8.6-10.0 [facility] Chloride [Moles/volume] in Serum or Plasma 104 mmol/L 98-107 [facility] Creatinine [Mass/volume] in Serum or Plasma 0.81 mg/dL 0.50-0.90 [facility] Glucose [Mass/volume] in Serum or Plasma 93 mg/dL 70-140 [facility] Alkaline phosphatase [Enzymatic activity/volume] in Serum or Plasma 102 U/L 35-104 [facility] Potassium [Moles/volume] in Serum or Plasma 4.0 mmol/L 3.4-5.1 [facility] Protein [Mass/volume] in Serum or Plasma 6.9 g/dL 6.4-8.3 [facility] Sodium [Moles/volume] in Serum or Plasma 139 mmol/L 136-145 [facility] Aspartate aminotransferase [Enzymatic activity/volume] in Serum or Plasma 20 U/L <32 [facility] Urea nitrogen [Mass/volume] in Serum or Plasma 11 mg/dL 6-20 [facility] Osmolality of Serum or Plasma by calculation 287 mosm/kg 275-300 [facility] Creatinine/Urea nitrogen [Mass Ratio] in Serum or Plasma 14 [facility] Bicarbonate [Moles/volume] in Serum 26 mmol/L 22-29 [facility] Alanine aminotransferase [Enzymatic activity/volume] in Seru m or Plasma 16 U/L <33 [facility] Anion gap 3 in Serum or Plasma 9 mmol/L 8-15 [facility] Glomerular filtration rate/1.73 sq M pre dicted among non-blacks [Volume Rate/Area] in Serum or Plasma by Creatinine-based formula (MDRD) 84 mL/min/1.73m2 >60 [facility] Glomerular filtration rate/1.73 sq M pre dicted among blacks [Volume Rate/Area] in Serum or Plasma by Creatinine-based formula (MDRD) >60 [facility] ID Date Data Source [id number] 11/22/2020 02:02:08 PM EDT [facility] Name Value Range Interpretation Code Description Data Joyce rce(s) Supporting Document(s) Progress Note [facility] CERGNw1vKaUDBqFi27/IZApiBLQlj4NnNVceCTv1YYklLRKnE3OmPNT7pM5wTQT1LGcLFkMuYvEoEOL8 lbm UjUcrXEpGnRRCkWznSFcNqTLehDlwwuUWoIP1ZfFF6TZDnR14qHZNkSLSqI2OtNON3QbT+Lc8MBQOuwG CnEJ2IMixR7Husu5c6Ll9qrH6MrNZU53AosUacVNOEwUxuRTd8Hy7jbMf6MrCpviij5gkqJr8/vnpQlo ciF3SY0er0BaP0hHOtXFU6cMMLSAA8XthreojdSYUg 99IKaZjS7B3/CqD8xrjxol4jV/GZlktXOC1Tj3C75dwqLyK/bJZRcDyfhuTWqU5oJ7LkpMAe16F//uT [file] SPV8NUv+FM4yJDp+Bo6Kv4MzeyC2nfCpMHgtXranSO4HIYPVW6IHVm== ID Date Data Source [id number] 11/06/2020 11:43:13 AM EDT [facility] Name Value Range Interpretation Code Description Data Joyce rce(s) Supporting Document(s) Progress Note [facility] ERVQHf2aFvJWNlJv20/BYSlsRLAwb1PcRMozZYg5NZciOLVjN4ZaFPH3xD4nSKW3MQxHTuKoGtHwYkQe lbm [file] ID Date Data Source [id number] 10/21/2020 04:51:57 AM EDT [facility] Name Value Range Interpretation Code Description Data Joyce rce(s) Supporting Document(s) Progress Note [facility] IXJAUt5bXyNTCuXe52/OSResMUHbd3LuSHqhOKq3YJaqMPBuM4EqPWQ9vA4cILK0LBkAYhTmEwAsPiE6 lbm ArHhqNIkRfKAHnNglNJfYhXIqbDidecXFzTE5SiCR9DIKbT89kNPIrLIYnR0EaPNRtXwl+Ns0AZLQgfM DyMO4KIncH0N15o0hOZx+/EA3VuRYlBRbXYfs8ymC8iRtTYqs3xULA8F/WHlUcKf9ld3ACaHk92FF2kw lRP9+ID16Wza1SZzG5Xfl3190kjf1562hqNcbQRt2+ d/HgwBoz1Fh911+0PKbeId9Kf2LE4XKoVfXEP6R/Yg3odgs70l9o7FYWnC5u0KMyC4d+u5Ua1Rw/fPTT 5BVT0aoxequ2mJxXnJ+8j4/xtNzg1Qp7VbA/Pn7s7f/fnrp60iidVwrY36gqf0oWafhCxXutZSLQIvLg zWorn3pkUPgsVXNbgTF0jwjCYSaIeF2qJNDZu6MCmy Z5b4VvqNl9XMpGY7Fh1I9FjdK0Ou59ZQui2E/IdRC5Fy/Mx+kh7v6Dd1lZi2N7iksqsg1EiPQStlW0Zt LtnHAB+jNX1CZJlpvudNzx6qM5jdkjsLHJFhaXhr/46Eyy7LC+e+pt0hYRee8h5Ue9Y803Ykugo/HDOF 0I0fW50+5oE8KwYvM7yD4VpQJJsyM4dKOdbI5aRZXY Oxana+pqf2Fp8cEuvSkpBHPeOhh//i97vIq09xLMaRlbWXQrZ/CYY5dAYP2bwWMQpJ1f5CWDOddmAYY7EV [file] CRIoHcZN0NCAw= ID Date Data Source [id number] 10/11/2020 10:40:00 AM EST [facility]) Name Value Range Interpretation Code Description Data Joyce rce(s) Supporting Document(s) thyroid stimulating hormone 3.010 uIU/mL 0.358-3.740 Thyroid Stimulating Hormone [facility]) free T4 0.92 NG/dL 0.76-1.46 Free T4 [place] [facility] ([facility]) ID Date Data Source [id number] 10/11/2020 10:40:00 AM EST [facility]) Name Value Range Interpretation Code Description Data Joyce rce(s) Supporting Document(s) glucose, fasting 100 mg/dL 70-100 Glucose, Fasting AT [facility]) blood urea nitrogen 8 mg/dL 7-18 Blood Urea Nitro gen [place] [facility] ([facility]) creatinine for GFR 0.63 mg/dL 0.55-1.30 Creatinine for GF R [place] ([facility]) glomerular filtration rate > 60.0 >58 Glomerula r Filtration Rate [place] ([facility]) sodium level 140 mEq/L 136-145 Sodium Level [place] [facility] ([facility]) chloride level 109 mEq/L 98-107 Above high normal Chloride Level [place] [facility] ([facility]) potassium serum 4.1 mEq/L 3.5-5.1 Potassium Serum ATHE NA ([facility]) carbon dioxide level 27 mEq/L 21-32 Carbon Dioxide Level REZA ([facility]) anion gap 4 mEq/L 8-16 Below low normal Anion Gap REZA ( [facility]) calcium level 9.2 mg/dL 8.5-10.1 Calcium Level REZA ( [facility]) AST/SGOT 18 U/L 7-37 AST/SGOT [facility] ([facility]) ALT/SGPT 25 U/L 12-78 ALT/SGPT RE[facility] ([facility]) alkaline phosphatase 111 U/L 45-117 Alkaline Phosph atase REZA ([facility]) bilirubin,total 0.2 mg/dL 0.2-1.0 Bilirubin,total ATHE NA ([facility]) total protein 6.4 gm/dL 6.4-8.2 Total Protein REZA ( [facility]) albumin/globulin ratio 1.2-2.2 Below low normal Albumin /globulin Ratio REZA ([facility]) albumin 3.2 gm/dL 3.2-5.2 Albumin RE[facility] ([facility]) ID Date Data Source [id number] 10/11/2020 10:40:00 AM EST REZA ([facility]) Name Value Range Interpretation Code Description Data Joyce rce(s) Supporting Document(s) thyroid stimulating hormone 3.010 uIU/mL 0.358-3.740 Thyroid Stimulating Hormone REZA ([facility]) free T4 0.92 NG/dL 0.76-1.46 Free T4 REZA ([facility]) ID Date Data Source [id number] 10/11/2020 10:40:00 AM EST REZA ([facility]) Name Value Range Interpretation Code Description Data Joyce rce(s) Supporting Document(s) glucose, fasting 100 mg/dL 70-100 Glucose, Fasting AT [facility] ([facility]) blood urea nitrogen 8 mg/dL 7-18 Blood Urea Nitro gen REZA ([facility]) creatinine for GFR 0.63 mg/dL 0.55-1.30 Creatinine for GF R REZA ([facility]) glomerular filtration rate > 60.0 >58 Glomerula r Filtration Rate REZA ([facility]) sodium level 140 mEq/L 136-145 Sodium Level REZA ([facility]) potassium serum 4.1 mEq/L 3.5-5.1 Potassium Serum ATHE NA ([facility]) chloride level 109 mEq/L 98-107 Above high normal Chloride Level REZA ([facility]) carbon dioxide level 27 mEq/L 21-32 Carbon Dioxide Level REZA ([facility]) anion gap 4 mEq/L 8-16 Below low normal Anion Gap REZA ( [facility]) calcium level 9.2 mg/dL 8.5-10.1 Calcium Level REZA ( [facility]) AST/SGOT 18 U/L 7-37 AST/SGOT REZA ([facility]) ALT/SGPT 25 U/L 12-78 ALT/SGPT REZA ([facility]) alkaline phosphatase 111 U/L 45-117 Alkaline Phosph atase REZA ([facility]) bilirubin,total 0.2 mg/dL 0.2-1.0 Bilirubin,total ATHE ([facility]) total protein 6.4 gm/dL 6.4-8.2 Total Protein REZA ( [facility]) albumin 3.2 gm/dL 3.2-5.2 Albumin REZA ([facility]) albumin/globulin ratio 1.2-2.2 Below low normal Albumin /globulin Ratio REZA ([facility]) ID Date Data Source [id number] 10/11/2020 10:40:00 AM EST REZA ([facility]) Name Value Range Interpretation Code Description Data Joyce rce(s) Supporting Document(s) thyroid stimulating hormone 3.010 uIU/mL 0.358-3.740 Thyroid Stimulating Hormone REZA ([facility]) free T4 0.92 NG/dL 0.76-1.46 Free T4 REZA [facility]) ID Date Data Source [id number] 10/11/2020 10:40:00 AM EST REZA ([facility]) Name Value Range Interpretation Code Description Data Joyce rce(s) Supporting Document(s) glucose, fasting 100 mg/dL 70-100 Glucose, Fasting AT [place] ([facility]) creatinine for GFR 0.63 mg/dL 0.55-1.30 Creatinine for GF R REZA ([facility]) glomerular filtration rate > 60.0 >58 Glomerula r Filtration Rate REZA ([facility]) blood urea nitrogen 8 mg/dL 7-18 Blood Urea Nitro gen REZA ([facility]) potassium serum 4.1 mEq/L 3.5-5.1 Potassium Serum ATHE NA ([facility]) sodium level 140 mEq/L 136-145 Sodium Level REZA ([facility]) chloride level 109 mEq/L 98-107 Above high normal Chloride Level REZA ([facility]) anion gap 4 mEq/L 8-16 Below low normal Anion Gap REZA ( [facility]) carbon dioxide level 27 mEq/L 21-32 Carbon Dioxide Level REZA ([facility]) calcium level 9.2 mg/dL 8.5-10.1 Calcium Level REZA ( [facility]) AST/SGOT 18 U/L 7-37 AST/SGOT REZA ([facility]) ALT/SGPT 25 U/L 12-78 ALT/SGPT REZA ([facility]) bilirubin,total 0.2 mg/dL 0.2-1.0 Bilirubin,total ATHE NA ([facility]) alkaline phosphatase 111 U/L 45-117 Alkaline Phosph atase REZA ([facility]) albumin 3.2 gm/dL 3.2-5.2 Albumin REZA ([facility]) albumin/globulin ratio 1.2-2.2 Below low normal Albumin /globulin Ratio REZA ([facility]) total protein 6.4 gm/dL 6.4-8.2 Total Protein REZA ( [facility]) ID Date Data Source [id number] 10/11/2020 10:40:00 AM EST REZA ([facility]) Name Value Range Interpretation Code Description Data Joyce rce(s) Supporting Document(s) glucose, fasting 100 mg/dL 70-100 Glucose, Fasting AT [place] ([facility]) glomerular filtration rate > 60.0 >58 Glomerula r Filtration Rate REZA ([facility]) creatinine for GFR 0.63 mg/dL 0.55-1.30 Creatinine for GF R REZA ([facility]) blood urea nitrogen 8 mg/dL 7-18 Blood Urea Nitro gen REZA ([facility]) potassium serum 4.1 mEq/L 3.5-5.1 Potassium Serum ATHE NA ([facility]) sodium level 140 mEq/L 136-145 Sodium Level REZA ([facility]) chloride level 109 mEq/L 98-107 Above high normal Chloride Level REZA ([facility]) anion gap 4 mEq/L 8-16 Below low normal Anion Gap REZA ( [facility]) carbon dioxide level 27 mEq/L 21-32 Carbon Dioxide Level REZA ([facility]) ALT/SGPT 25 U/L 12-78 ALT/SGPT REZA ([facility]) calcium level 9.2 mg/dL 8.5-10.1 Calcium Level REZA ( [facility]) AST/SGOT 18 U/L 7-37 AST/SGOT REZA ([facility]) total protein 6.4 gm/dL 6.4-8.2 Total Protein REZA ( [facility]) alkaline phosphatase 111 U/L 45-117 Alkaline Phosph atase REZA ([facility]) bilirubin,total 0.2 mg/dL 0.2-1.0 Bilirubin,total ATHE ([facility]) albumin 3.2 gm/dL 3.2-5.2 Albumin REZA ([facility]) albumin/globulin ratio 1.2-2.2 Below low normal Albumin /globulin Ratio REZA ([facility]) ID Date Data Source [id number] 10/11/2020 10:40:00 AM EST REZA ([facility]) Name Value Range Interpretation Code Description Data Joyce rce(s) Supporting Document(s) thyroid stimulating hormone 3.010 uIU/mL 0.358-3.740 Thyroid Stimulating Hormone REZA ([facility]) free T4 0.92 NG/dL 0.76-1.46 Free T4 [place] ([facility]) ID Date Data Source [id number] 10/11/2020 10:40:00 AM EST REZA ([facility]) Name Value Range Interpretation Code Description Data Joyce rce(s) Supporting Document(s) glucose, fasting 100 mg/dL 70-100 Glucose, Fasting AT [facility] ([facility]) glomerular filtration rate > 60.0 >58 Glomerula r Filtration Rate REZA ([facility]) blood urea nitrogen 8 mg/dL 7-18 Blood Urea Nitro gen [place] ([facility]) creatinine for GFR 0.63 mg/dL 0.55-1.30 Creatinine for GF R REZA ([facility]) potassium serum 4.1 mEq/L 3.5-5.1 Potassium Serum ATHE ([facility]) chloride level 109 mEq/L 98-107 Above high normal Chloride Level REZA ([facility]) sodium level 140 mEq/L 136-145 Sodium Level REZA (No [facility]) carbon dioxide level 27 mEq/L 21-32 Carbon Dioxide Level REZA ([facility]) calcium level 9.2 mg/dL 8.5-10.1 Calcium Level REZA ( [facility]) anion gap 4 mEq/L 8-16 Below low normal Anion Gap REZA ( [facility]) AST/SGOT 18 U/L 7-37 AST/SGOT REZA ([facility]) ALT/SGPT 25 U/L 12-78 ALT/SGPT REZA ([facility]) bilirubin,total 0.2 mg/dL 0.2-1.0 Bilirubin,total ATHE ([facility]) total protein 6.4 gm/dL 6.4-8.2 Total Protein REZA ( [facility]) alkaline phosphatase 111 U/L 45-117 Alkaline Phosph atase REZA ([facility]) albumin 3.2 gm/dL 3.2-5.2 Albumin REZA ([facility]) albumin/globulin ratio 1.2-2.2 Below low normal Albumin /globulin Ratio REZA ([facility]) ID Date Data Source [id number] 10/11/2020 10:40:00 AM EST REZA ([facility]) Name Value Range Interpretation Code Description Data Joyce rce(s) Supporting Document(s) free T4 0.92 NG/dL 0.76-1.46 Free T4 REZA ([facility]) thyroid stimulating hormone 3.010 uIU/mL 0.358-3.740 Thyroid Stimulating Hormone [place] ([facility]) ID Date Data Source [id number] 10/11/2020 10:40:00 AM EST REZA ([facility]) Name Value Range Interpretation Code Description Data Joyce rce(s) Supporting Document(s) glucose, fasting 100 mg/dL 70-100 Glucose, Fasting AT [facility]) creatinine for GFR 0.63 mg/dL 0.55-1.30 Creatinine for GF R [place] ([facility]) blood urea nitrogen 8 mg/dL 7-18 Blood Urea Nitro gen REZA ([facility]) glomerular filtration rate > 60.0 >58 Glomerula r Filtration Rate REZA ([facility]) sodium level 140 mEq/L 136-145 Sodium Level REZA ([facility]) potassium serum 4.1 mEq/L 3.5-5.1 Potassium Serum ATHE NA ([facility]) carbon dioxide level 27 mEq/L 21-32 Carbon Dioxide Level REZA ([facility]) chloride level 109 mEq/L 98-107 Above high normal Chloride Level REZA ([facility]) anion gap 4 mEq/L 8-16 Below low normal Anion Gap REZA ( [facility]) calcium level 9.2 mg/dL 8.5-10.1 Calcium Level [place] ( [facility]) ALT/SGPT 25 U/L 12-78 ALT/SGPT REZA ([facility]) AST/SGOT 18 U/L 7-37 AST/SGOT REZA ([facility]) alkaline phosphatase 111 U/L 45-117 Alkaline Phosph atase REZA ([facility]) bilirubin,total 0.2 mg/dL 0.2-1.0 Bilirubin,total ATHE NA ([facility]) total protein 6.4 gm/dL 6.4-8.2 Total Protein REZA ( [facility]) albumin 3.2 gm/dL 3.2-5.2 Albumin REZA ([facility]) albumin/globulin ratio 1.2-2.2 Below low normal Albumin /globulin Ratio REZA ([facility]) ID Date Data Source [id number] 10/11/2020 10:40:00 AM EST REZA ([facility]) Name Value Range Interpretation Code Description Data Joyce rce(s) Supporting Document(s) thyroid stimulating hormone 3.010 uIU/mL 0.358-3.740 Thyroid Stimulating Hormone REZA ([facility]) free T4 0.92 NG/dL 0.76-1.46 Free T4 [place] ([facility]) ID Date Data Source [id number] 10/11/2020 10:40:00 AM EST REZA ([facility]) Name Value Range Interpretation Code Description Data Joyce rce(s) Supporting Document(s) blood urea nitrogen 8 mg/dL 7-18 Blood Urea Nitro gen REZA ([facility]) glucose, fasting 100 mg/dL 70-100 Glucose, Fasting AT [facility] ([facility]) creatinine for GFR 0.63 mg/dL 0.55-1.30 Creatinine for GF R REZA ([facility]) glomerular filtration rate > 60.0 >58 Glomerula r Filtration Rate REZA ([facility]) sodium level 140 mEq/L 136-145 Sodium Level REZA ([facility]) carbon dioxide level 27 mEq/L 21-32 Carbon Dioxide Level REZA ([facility]) potassium serum 4.1 mEq/L 3.5-5.1 Potassium Serum ATHE NA ([facility]) chloride level 109 mEq/L 98-107 Above high normal Chloride Level REZA ([facility]) anion gap 4 mEq/L 8-16 Below low normal Anion Gap REZA ( [facility]) calcium level 9.2 mg/dL 8.5-10.1 Calcium Level REZA ( [facility]) ALT/SGPT 25 U/L 12-78 ALT/SGPT REZA ([facility]) AST/SGOT 18 U/L 7-37 AST/SGOT REZA ([facility]) alkaline phosphatase 111 U/L 45-117 Alkaline Phosph atase REZA ([facility]) bilirubin,total 0.2 mg/dL 0.2-1.0 Bilirubin,total ATHE ([facility]) albumin 3.2 gm/dL 3.2-5.2 Albumin REZA ([facility]) total protein 6.4 gm/dL 6.4-8.2 Total Protein REZA ( [facility]) albumin/globulin ratio 1.2-2.2 Below low normal Albumin /globulin Ratio REZA ([facility]) ID Date Data Source [id number] 10/11/2020 10:40:00 AM EST REZA ([facility]) Name Value Range Interpretation Code Description Data Joyce rce(s) Supporting Document(s) thyroid stimulating hormone 3.010 uIU/mL 0.358-3.740 Thyroid Stimulating Hormone REZA ([facility]) free T4 0.92 NG/dL 0.76-1.46 Free T4 REZA ([facility]) ID Date Data Source [id number] 10/11/2020 10:40:00 AM EST REZA ([facility]) Name Value Range Interpretation Code Description Data Joyce rce(s) Supporting Document(s) glucose, fasting 100 mg/dL 70-100 Glucose, Fasting AT [place] ([facility]) blood urea nitrogen 8 mg/dL 7-18 Blood Urea Nitro gen REZA ([facility]) creatinine for GFR 0.63 mg/dL 0.55-1.30 Creatinine for GF R REZA ([facility]) glomerular filtration rate > 60.0 >58 Glomerula r Filtration Rate REZA ([facility]) sodium level 140 mEq/L 136-145 Sodium Level REZA (No [facility]) potassium serum 4.1 mEq/L 3.5-5.1 Potassium Serum ATHE NA ([facility]) chloride level 109 mEq/L 98-107 Above high normal Chloride Level REZA ([facility]) anion gap 4 mEq/L 8-16 Below low normal Anion Gap REZA ( [facility]) carbon dioxide level 27 mEq/L 21-32 Carbon Dioxide Level REZA ([facility]) calcium level 9.2 mg/dL 8.5-10.1 Calcium Level REZA ( [facility]) AST/SGOT 18 U/L 7-37 AST/SGOT REZA ([facility]) ALT/SGPT 25 U/L 12-78 ALT/SGPT REZA ([facility]) bilirubin,total 0.2 mg/dL 0.2-1.0 Bilirubin,total ATHE ([facility]) alkaline phosphatase 111 U/L 45-117 Alkaline Phosph atase REZA ([facility]) albumin 3.2 gm/dL 3.2-5.2 Albumin REZA ([facility]) total protein 6.4 gm/dL 6.4-8.2 Total Protein REZA ( [facility]) albumin/globulin ratio 1.2-2.2 Below low normal Albumin /globulin Ratio REZA ([facility]) ID Date Data Source [id number] 10/11/2020 10:40:00 AM EST REZA ([facility]) Name Value Range Interpretation Code Description Data Joyce rce(s) Supporting Document(s) free T4 0.92 NG/dL 0.76-1.46 Free T4 REZA ([facility]) thyroid stimulating hormone 3.010 uIU/mL 0.358-3.740 Thyroid Stimulating Hormone REZA ([facility]) ID Date Data Source [id number] 10/07/2020 07:53:39 AM [facility] NM INJECTION RADIOACTIVE TRACER - SENTIN AL NODEFINAL RESULTInterpreted by:Elizabeth Hodge MDLE BREAST LYMPHOSCINTIGRAPHY FOR SENTINEL LYMPH NODE BIOPSY - INJECTION: PROCEDURALIST: Elizabeth Hodge, DOTECHNOLOGIST: KASANDRA MenendezMT, LNMTThe skin around the areola was cleansed with [...] rce(s) Supporting Document(s) ID Date Data Source [id number] 10/03/2020 06:34:57 PM [facility] Name Value Range Interpretation Code Description Data Joyce rce(s) Supporting Document(s) Progress Note [facility] SNGLTz6oCsWGImEl82/BUNzbGVQii5ThREijJMj2PKqsRQDuN1XhDHL1gL6iZJL9UTwFHgEoLhMrTyR0 m [file] HSicdECwkEzpIWGNAqM8APVCEiSkUJ1NJRe= ID Date Data Source [id number] 10/03/2020 12:37:32 PM EST [facility] Name Value Range Interpretation Code Description Data Joyce rce(s) Supporting Document(s) Discharge Summary [facility] DTLZAw8fAiMEDyLz67/GANlmZNTpr0DaFEjzBJu8UXblFBPbY0NtLYV3pA4jYGY7RWbALnRfIpJcJvA2 lbm [file] [facility]+Ml194Qvp+17nv2tb8dXgiaPhGCZU/gXdXw/FRDLOAgnY3dVuHppLivUopgpMxXv4vgLiP1 [file] ICAgICAgICAgICAgICAgICAgICAgICAgICAgICAgICAgICAgICAgICAgICAgICAgICAgICAgICAgICAg ICAgICAgICAgICAgICAgICAgICAgICANCiAgICAgIC AgICAgICAgICAgICAgICAgICAgICAgICAgICAgICAgICAgICAgICAgICAgICAgICAgICAgICAgICAgIC AgICAgICAgICAgICAgICAgICAgICAgICAgICAgICAgICANCiAgICAgICAgICAgICAgICAgICAgICAgIC AgICAgICAgICAgICAgICAgICAgICAgICAgICAgICAg ICAgICAgICAgICAgICAgICAgICAgICAgICAgICAgICAgICAgICAgICAgICANCiAgICAgICAgICAgICAg ICAgICAgICAgICAgICAgICAgICAgICAgICAgICAgICAgICAgICAgICAgICAgICAgICAgICAgICAgICAg ICAgICAgICAgICAgICAgICAgICAgICAgICANCiAgIC AgICAgICAgICAgICAgICAgICAgICAgICAgICAgICAgICAgICAgICAgICAgICAgICAgICAgICAgICAgIC AgICAgICAgICAgICAgICAgICAgICAgICAgICAgICAgICAgICANCiAgICAgICAgICAgICAgICAgICAgIC AgICAgICAgICAgICAgICAgICAgICAgICAgICAgICAg ICAgICAgICAgICAgICAgICAgICAgICAgICAgICAgICAgICAgICAgICAgICAgICANCiAgICAgICAgICAg ICAgICAgICAgICAgICAgICAgICAgICAgICAgICAgICAgICAgICAgICAgICAgICAgICAgICAgICAgICAg ICAgICAgICAgICAgICAgICAgICAgICAgICAgICANCi AgICAgICAgICAgICAgICAgICAgICAgICAgICAgICAgICAgICAgICAgICAgICAgICAgICAgICAgICAgIC AgICAgICAgICAgICAgICAgICAgICAgICAgICAgICAgICAgICAgICANCiAgICAgICAgICAgICAgICAgIC AgICAgICAgICAgICAgICAgICAgICAgICAgICAgICAg ICAgICAgICAgICAgICAgICAgICAgICAgICAgICAgICAgICAgICAgICAgICAgICAgICANCiAgICAgICAg ICAgICAgICAgICAgICAgICAgICAgICAgICAgICAgICAgICAgICAgICAgICAgICAgICAgICAgICAgICAg ICAgICAgICAgICAgICAgICAgICAgICAgICAgICAgIC ANCjw/fMOsM5luxPMyswM3S3kpNa9IVw5IWX4tg4SaJLAwODcvvzXuYlhYGlYcYUDhAxoBYdc5MJcvUF 8UwBDgR4TzD8TjUKixRF1RTLFiLSPidQWpOEDgBXVsCgG3XHMbQHpcRL9CfWFaRSsxLGMlNDNsBdYiDR IgOSAwIFIgMTEgMCBSIDEzIDAgUiAxNSAwIFIgMTcg PMRDDP0EZjHvW1UmrA11TBnUDa0+SZnszyGmGugMXnLyQUOge4SgHXj9SX6KQCFnXqjnz7AsUOWtXDLJ JOtfQS5ZFNW2EEVyVFHiPw3IDGMiH970ztQtCH6FCv4IBqJxCX1jec6HWCBsUSRcFnsAOft1NQwdLN3Z vCMdISiApPNvpJOtH3FzF8InxBDvjYNypOUTDQ9eqo WnB4smfs7zLMGXCURjwNEmGkH6WyNzKrTrLHt5PKksJX9rRVzbPQ2JLAH1ZXusJPWnGRAdV1dDNmLkPY EfJDQzjZiiZG2ODwLmH5CkjiDymGU2FyJlBGZGCm5+BDntqrBqQnkONqV6EWWmd7RdSJw9KE6LQSGxOG kmKD8JOFUboO3wCWxiSY7ZTdJ2CABnIBCTRlWgL83c mHUwOOh9M1RfVsDgKHNrPhxsIPQfVOhmYnToDGDwReHuAQatFT2+ID4+DLznAB1PNKlajcLqIEKwTf6O NRNjWSZuYF1qJUMbXXRpS4D8pWpcYORWDbLbO0vugudmRV1cPFPhE363mUzoxbVjIUCpGNFeWj6ZTFTj YGI8SUJzrEXyZHEqCMHNPFyuFB8HhNTcGLZ2tK7xYD ldCHMqSMUyK4eTUgJuoNbnCN89zSwdctOwaRViIMk+Xd4WRA0rb4PkTEl5qbExAQrtRDG7ABvlKVHfPZ MhOHKsIEP9ZOM2ZBNUCaEsSYFkYITdVPccDFOkKBWomk3NBGVxTJX2NKD8ViTyMVHlBNHuWCpyJKQuRP L8OXG1EAMpFCYrXP6EJmSoDNTfSNKpBNnjQCYcQWTd fv3RGSHtZKNqBxx6OQFnAEOnTLVvOAivXKVaCPRcSLt1CCGgNYUiBZ0QUfYxBIPmUNV5RsCrHWWuCWDe zu9PZJNvGDEhMAI6SNJsBUQtNWRwDGffSBAdDXZ1JFp8HQMiDYPzKX9VRcWnZTNbZCkbADlqBUOsFYCa lp0OICRwFVLtWkNyONVcOTGmMJKbMOzbJVRrQSBnWW HqIHPwJDNtMH1HQpTcSDZbZZNtCWWlYEBhLQSeiv3UWRSsKBDlTvR1GXCyYDTyJHXyPUomXMSfYRTiBQ PwIANnXGMyGY5NNcEtPHNuVxX6UGhbLQXcAMOfkf3JTTEkMIZkNvV1TkKaLTVwETNfGFwsFHRtQMKcRl HyNXGmWQVcOO4VEpUiRJJtJjGfIlYaHCHnENDdoz1O ANVzEZIxErX2ZOZiQTJeVUQxFLeoGRKpAFDgUpDeENYxZGLdYR8PXqGaRUGjUxS4CVCdTJSbGHBgtj8W ALFnMVTiPHtpOcQfYRBaBYLqEIqhOEFfRJO1EWnvIYVxUFJvUO7MAuZqHFOvTaAyKsBbRGIbLHGmpv9M FFXsMHEoUkD6RRCtLPRwVZNtADyiBQGiFXI7BSDxTH TcYBIgNG9QTqVfUXLvTrpqJAHlAMRiLTHukx2YOJSmMZFbAtL7RDOjUPZgOIRcTUfcJGXqVYU8GwOjJO AbINMpEH2CAiOrNLPvQqi0DrMoWURrHPIxmc8LTELcDURjSYG3JUMcGBYxHSRdXKilIVKaOIHsYOB2HN UvOUXhQM5EFnOxIUZsLKX0YfVnAYHzBNNmft1ZASMx QDD8Fda8GUAmUHYoMURiVLzxZYSeBCV8IzZ1YZCeVKQzPM3DPqQqJIFnDHJrCxFsJVPkHJOweb4PZXIp UVG8JDLgJKGkSDNdPSNbGFupOAOaYXZ1QWh5AMDwLYLcKD9NXeMaDGHxNFT5JlUnSFOnJPSrgs6QUZLp MWZ0IgDxMPMwLLEoHAYpHZrcCEWnCDZ5SxOiIFGgXL EvDV1IZkBhGUHuEGy6LfAnRAMcKWVqan7RIYDzPNG0GvviAUCzPRZdCGTbUYi3hjEtiOChQUm6UB5RW3 WlsbAfMYZNTd3Et438SEG1WCTeXr6MD3zhHt7vCPMaRQFPJz7XEKs9EmmoEOL3MTLfYmCvOFK1ANPjHM XvUYXxHGC5Lnd0QiM+ZOxvYTV5KRt1ZoNiECF6MWSu ZHD4X3IrYQU7WwU2CWW1Mr1gAVYSYv7+VNoeoRWcoKtbKWZQByC0PDM5WLsaFUNKWi0G ID Date Data Source [id number] 10/03/2020 09:43:20 AM EST [facility] Name Value Range Interpretation Code Description Data Joyce rce(s) Supporting Document(s) Progress Note [facility] ISGYVw2hHyEANeJd09/MQRnaHPQuz4JhFYiyTPd7IOvoOLGjA8UlRCB6nI9bSSZ4DXrATrLfQxLfQiW9 lbm [file] [id number]== ID Date Data Source [id number] 10/03/2020 04:35:49 AM [facility] Name Value Range Interpretation Code Description Data Joyce rce(s) Supporting Document(s) Leukocytes [#/volume] in Blood by Automated count 11.2 10*3/uL 4-10 H [facility] Erythrocytes [#/volume] in Blood by Automated count 4.00 10*6/uL 4.1- 5.3 L [facility] Hemoglobin [Mass/volume] in Blood 12.7 g/dL 11.5-15.5 [facility] Hematocrit [Volume Fraction] of Blood by Automated count 37.7 % 3 6-45 [facility] Erythrocyte mean corpuscular volume [Entitic volume] by Auto mated count 94.3 fL 80-96 [facility] Erythrocyte mean corpuscular hemoglobin [Entitic mass] by Automated count 31.6 pg 27-33 [facility] Erythrocyte mean corpuscular hemoglobin concentration [Mass/volume] by Automated count 33.6 g/[facility]0-[facility] width [Ratio] by Automated count 15.4 % 11.5-14.5 H [facility] Platelets [#/volume] in Blood by Automated count 249 10*3/uL 150-400 [facility] Differential cell count method - Blood [facility] Neutrophils/100 leukocytes in Blood by Automated count 70 % [facility] Lymphocytes/100 leukocytes in Blood by Automated count 20 % [facility] Monocytes/100 leukocytes in Blood by Automated count 9 % [facility] Eosinophils/100 leukocytes in Blood by Automated count 0 % [facility] Basophils/100 leukocytes in Blood by Automated count 1 % [facility] Neutrophils [#/volume] in Blood by Automated count 7.87 10*3/uL 1.8-7 .0 H [facility] Lymphocytes [#/volume] in Blood by Automated count 2.26 10*3/uL 1.2-4 .0 [facility] Monocytes [#/volume] in Blood by Automated count 1.01 10*3/uL 0-0.8 H [facility] Eosinophils [#/volume] in Blood by Automated count 0.04 10*3/uL 0-0.5 [facility] Basophils [#/volume] in Blood by Automated count 0.05 10*3/uL 0-0.2 [facility] Nucleated erythrocytes/100 leukocytes [Ratio] in Blood by Automated count 0 /100{WBCs} 0-0 [facility] ID Date Data Source [id number] 10/03/2020 04:48:46 AM EST [facility] Name Value Range Interpretation Code Description Data Joyce rce(s) Supporting Document(s) Bicarbonate [Moles/volume] in Serum 22 mmol/L 22-29 [facility] Chloride [Moles/volume] in Serum or Plasma 107 mmol/L 98-107 [facility] Creatinine [Mass/volume] in Serum or Plasma 0.50 mg/dL 0.50-0.90 [facility] Glucose [Mass/volume] in Serum or Plasma 95 mg/dL 70-140 [facility] Potassium [Moles/volume] in Serum or Plasma 3.6 mmol/L 3.4-5.1 [facility] Sodium [Moles/volume] in Serum or Plasma 138 mmol/L 136-145 [facility] Urea nitrogen [Mass/volume] in Serum or Plasma 8 mg/dL 6-20 [facility] Anion gap 3 in Serum or Plasma 9 mmol/L 8-15 [facility] Osmolality of Serum or Plasma by calculation 284 mosm/kg 275-300 [facility] Creatinine/Urea nitrogen [Mass Ratio] in Serum or Plasma 16 [facility] Calcium [Mass/volume] in Serum or Plasma 8.8 mg/dL 8.6-10.0 [facility] Glomerular filtration rate/1.73 sq M pre dicted among non-blacks [Volume Rate/Area] in Serum or Plasma by Creatinine-based formula (MDRD) >6 0 [facility] Glomerular filtration rate/1.73 sq M pre dicted among blacks [Volume Rate/Area] in Serum or Plasma by Creatinine-based formula (MDRD) >60 [facility] ID Date Data Source [id number] 10/02/2020 05:37:19 PM [facility] Name Value Range Interpretation Code Description Data Joyce rce(s) Supporting Document(s) Progress Note [facility] GRFMNx5nLmGIUoUc70/HXSouGOZrf8ZdZQupAQd1IKloIPPlY7JiDIM3rU5eMBP9KKkNCmIeGwKqAfX0 [facility] [file] M+MJ9zLGm+Cc9Tp8VkeeX5ecUfQZugDlSnFk3UIIZDI8NWOz== ID Date Data Source [id number] 10/02/2020 01:39:00 PM EST [facility] Name Value Range Interpretation Code Description Data Joyce rce(s) Supporting Document(s) SARS-CoV-2 RNA 2019 nCoV Real-Time RT-PCR: NOT DETECTED [facility] This lab was ordered by [facility] and reported by [facility]. ID Date Data Source [id number] 10/02/2020 07:18:49 PM EST [facility] Name Value Range Interpretation Code Description Data Joyce rce(s) Supporting Document(s) Specimen source [Identifier] of Unspecified specimen [facility] SARS-CoV-2 RNA 2019 nCoV Real-Time RT-PCR: NOT DETECTED [facility] Assay Performed [facility] Patients first test for 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 When did you start to experience these symptoms [Date and time] [Phen X] [facility] Patient was hospitalized because of this condition [facility] patient was admitted to ICU for [facility] Patient resides in a congregate care setting [facility] status [facility] ID Date Data Source [id number] 10/02/2020 01:05:08 PM [facility] Name Value Range Interpretation Code Description Data Joyce rce(s) Supporting Document(s) Operative Note [facility] WNBMOo5kMhJCGfSj88/ORPknTVVqc5AdLBfjHKs5PQcxCLAtL2DoNIC3pO8uHRH2EUtWUgCzDaCoCeW3 lbm [file] MvTGa5Q3SvGg3nPJWYIo7+KDgafEJuhKutKYZJNqRaMGK5FTbvCJBBZg9X ID Date Data Source [id number] 10/02/2020 08:51:38 AM EST [facility] Name Value Range Interpretation Code Description Data Joyce e(s) Supporting Document(s) History and Physical [facility] PFBPGh5hHgJWTbLr92/AFXboOVIlv0GbMPbyKPs2XNjaOPAvN2OyHOC9kD5bBIW3WMtKAoEzZkTaAaK8 lbm [file] FRGyZYWuGAcgOswqEAWrDwFhHtQtGD6RYw1HQtF4YBH1lUWeXj7HWIH8EC6XVZQRZ0QQAp== ID Date Data Source [id number] 10/08/2020 11:52:00 AM [facility] Surgical Pathology ReportName: POLO RAMIREZMRN: [id number] Number: [id number] Date: 10/02/2020 00:00Received Date: 10/03/2020 08:14Physician(s): GIOVANNY BORJA MD SHARMA, RANJNA, MDSpecimenegro(s) ReceivedA: Left mastectomyB: Left sentinel node #1C: [...] of Lymph Nodes Examined: 4 Number of [place] Nodes Examined: 4Pathologic Stage Classification (pTNM, AJCC 8th Edition) TNM Descriptors: y (post-treatment) Primary Tumor (pT): pT1a Regional Lymph Nodes Modifier: (sn): [place] node(s) evaluated. Regional Lymph Nodes (pN): kI6Rjzgbhhuqt Findings Additional Findings: Atypical ductal hyperplasia, duct [...] quadrant (13 cm from the main tumor), ouorgsygs7cv in maximum dimension, and present 0.2mm from the inferior margin andgreater than 3 cm from all other margins. It shows positive ER and MS(strong, 100% staining each) and a negative Gzy8Hct (0). [facility] eCC September 2019 Annual Release Susy Irving M.D.;Resident [...] nodes areidentified in the upper outer quadrant. Gameplay Programmer sections aresubmitted to include sales representative printing level A and entire lesions B and [...] that correspondsto the previously diagnosed ductal carcinoma ([id number], 04/12/2020). LesionC that was identified grossly represents predominantly fibrotic breastparenchyma with fibrocystic changes with no tumor identified. ER, MS andHER2 were repeated on the residual invasive ductal carcinoma (block A7).This report may include one or more immunohistochemical stain results thatuse analyte specific reagents. All positive and negative controls havebeen reviewed by the attending pathologist and are satisfactory. The testswere developed and their performance characteristics determined by [facility] Pathology department. They have not been cleared or approved by the USFood and Drug Administration. The FDA has determined that such clearanceor approval is not necessary. Name Value Range Interpretation Code Description Data Joyce rce(s) Supporting Document(s) ID Date Data Source [id number] 09/30/2020 01:50:00 PM EST [place] ([facility]) Name Value Range Interpretation Code Description Data [facility] rce(s) Supporting Document(s) white blood count 6.0 10 4.0-10.0 White Blood Count [place] ([facility]) red blood count 4.49 10 4.00-5.40 Red Blood Count [facility] ([facility]) hemoglobin 14.0 g/dL 12.0-15.5 Hemoglobin [place] ([facility]) hematocrit 42.8 % 36.0-47.0 Hematocrit [place] ([facility]) mean corpuscular volume 95.3 fL 80.0-96.0 Mean Corpusc ular Volume [place] ([facility]) mean corpuscular hemoglobin 31.2 pg 27.0-33.0 Mean Cor puscular Hemoglobin [place] ([facility]) mean corpuscular HGB conc 32.7 g/dL 32.0-36.5 Mean Corpu scular HGB Conc [place] ([facility]) red cell distribution width 14.5 % 11.5-14.5 Red Cell Distribution Width [place] ([facility]) platelet count, automated 300 10 150-450 Platelet C ount, Automated [facility] ([facility]) neutrophils % 66.6 % 36.0-66.0 Above high normal Neutrophils % A THENA ([facility]) lymph % 24.3 % 24.0-44.0 Lymph % REZA ([facility]) mono % 7.1 % 2.0-8.0 [place] % REZA ([facility]) eos % 0.8 % 0.0-3.0 Eos % REZA ([facility]) baso % 1.0 % 0.0-1.0 Baso % REZA ([facility]) nucleated red blood cell % 0.0 % 0-0 Nucleated Red Blood Cell % REZA ([facility]) immature granulocyte % 0.2 % 0-3.0 Immature Gran ulocyte % REZA ([facility]) neutrophils # 4.0 10 1.5-8.5 Neutrophils # REZA ( [facility]) lymph # 1.5 10 1.5-5.0 Lymph # REZA ([facility]) mono # 0.4 10 0.0-0.8 [place] # REZA ([facility]) baso # 0.1 10 0.0-0.2 Baso # REZA ([facility]) eos # 0.1 10 0.0-0.5 Eos # REZA ([facility]) ID Date Data Source [id number] 09/30/2020 01:50:00 PM EST RZEA ([facility]) Name Value Range Interpretation Code Description Data Joyce rce(s) Supporting Document(s) white blood count 6.0 10 4.0-10.0 White Blood Count REZA ([facility]) red blood count 4.49 10 4.00-5.40 Red Blood Count ATHE NA ([facility]) hemoglobin 14.0 g/dL 12.0-15.5 Hemoglobin REZA ([facility]) hematocrit 42.8 % 36.0-47.0 Hematocrit REZA ([facility]) mean corpuscular volume 95.3 fL 80.0-96.0 Mean Corpusc ular Volume REZA ([facility]) mean corpuscular hemoglobin 31.2 pg 27.0-33.0 Mean Cor puscular Hemoglobin REZA ([facility]) mean corpuscular HGB conc 32.7 g/dL 32.0-36.5 Mean Corpu scular HGB Conc REZA ([facility]) red cell distribution width 14.5 % 11.5-14.5 Red Cell Distribution Width REZA ([facility]) platelet count, automated 300 10 150-450 Platelet C ount, Automated REZA ([facility]) neutrophils % 66.6 % 36.0-66.0 Above high normal Neutrophils % A THENA ([facility]) lymph % 24.3 % 24.0-44.0 Lymph % [place]ER[place] ([facility]) mono % 7.1 % 2.0-8.0 [place] % [place] ([facility]) eos % 0.8 % 0.0-3.0 Eos % REZA ([facility]) baso % 1.0 % 0.0-1.0 Baso % [place] ([facility]) immature granulocyte % 0.2 % 0-3.0 Immature Gran ulocyte % REZA ([facility]) nucleated red blood cell % 0.0 % 0-0 Nucleated Red Blood Cell % REZA ([facility]) neutrophils # 4.0 10 1.5-8.5 Neutrophils # REZA ( [facility]) eos # 0.1 10 0.0-0.5 Eos # REZA ([facility]) mono # 0.4 10 0.0-0.8 [place] # REZA ([facility]) lymph # 1.5 10 1.5-5.0 Lymph # REZA ([facility]) baso # 0.1 10 0.0-0.2 Baso # REZA ([facility]) ID Date Data Source [id number] 09/30/2020 01:50:00 PM EST REZA ([facility]) Name Value Range Interpretation Code Description Data Joyce rce(s) Supporting Document(s) red blood count 4.49 10 4.00-5.40 Red Blood Count ATHE NA ([facility]) white blood count 6.0 10 4.0-10.0 White Blood Count REZA ([facility]) hemoglobin 14.0 g/dL 12.0-15.5 Hemoglobin REZA ([facility]) hematocrit 42.8 % 36.0-47.0 Hematocrit REZA ([facility]) mean corpuscular hemoglobin 31.2 pg 27.0-33.0 Mean Cor puscular Hemoglobin REZA ([facility]) mean corpuscular HGB conc 32.7 g/dL 32.0-36.5 Mean Corpu scular HGB Conc REZA ([facility]) mean corpuscular volume 95.3 fL 80.0-96.0 Mean Corpusc ular Volume REZA ([facility]) platelet count, automated 300 10 150-450 Platelet C ount, Automated REZA ([facility]) red cell distribution width 14.5 % 11.5-14.5 Red Cell Distribution Width REZA ([facility]) lymph % 24.3 % 24.0-44.0 Lymph % [place] ([facility]) neutrophils % 66.6 % 36.0-66.0 Above high normal Neutrophils % A THENA ([facility]) baso % 1.0 % 0.0-1.0 Baso % [place] ([facility]) mono % 7.1 % 2.0-8.0 [place] % REZA ([facility]) eos % 0.8 % 0.0-3.0 Eos % REZA ([facility]) immature granulocyte % 0.2 % 0-3.0 Immature Gran ulocyte % REZA ([facility]) nucleated red blood cell % 0.0 % 0-0 Nucleated Red Blood Cell % REZA ([facility]) neutrophils # 4.0 10 1.5-8.5 Neutrophils # REZA ( [facility]) mono # 0.4 10 0.0-0.8 [place] # REZA ([facility]) lymph # 1.5 10 1.5-5.0 Lymph # REZA ([facility]) eos # 0.1 10 0.0-0.5 Eos # REZA ([facility]) baso # 0.1 10 0.0-0.2 Baso # REZA ([facility]) ID Date Data Source [id number] 09/30/2020 01:50:00 PM EST REZA ([facility]) Name Value Range Interpretation Code Description Data Joyce rce(s) Supporting Document(s) white blood count 6.0 10 4.0-10.0 White Blood Count REZA ([facility]) hematocrit 42.8 % 36.0-47.0 Hematocrit REZA ([facility]) red blood count 4.49 10 4.00-5.40 Red Blood Count ATHE NA ([facility]) hemoglobin 14.0 g/dL 12.0-15.5 Hemoglobin REZA ([facility]) mean corpuscular volume 95.3 fL 80.0-96.0 Mean Corpusc ular Volume REZA ([facility]) mean corpuscular hemoglobin 31.2 pg 27.0-33.0 Mean Cor puscular Hemoglobin REZA ([facility]) mean corpuscular HGB conc 32.7 g/dL 32.0-36.5 Mean Corpu scular HGB Conc REZA ([facility]) lymph % 24.3 % 24.0-44.0 Lymph % REZA ([facility]) neutrophils % 66.6 % 36.0-66.0 Above high normal Neutrophils % A THENA ([facility]) red cell distribution width 14.5 % 11.5-14.5 Red Cell Distribution Width REZA ([facility]) platelet count, automated 300 10 150-450 Platelet C ount, Automated REZA ([facility]) eos % 0.8 % 0.0-3.0 Eos % REZA ([facility]) baso % 1.0 % 0.0-1.0 Baso % REZA ([facility]) mono % 7.1 % 2.0-8.0 [place] % REZA ([facility]) nucleated red blood cell % 0.0 % 0-0 Nucleated Red Blood Cell % REZA ([facility]) lymph # 1.5 10 1.5-5.0 Lymph # REZA ([facility]) immature granulocyte % 0.2 % 0-3.0 Immature Gran ulocyte % REZA ([facility]) neutrophils # 4.0 10 1.5-8.5 Neutrophils # REZA ( [facility]) eos # 0.1 10 0.0-0.5 Eos # REZA ([facility]) mono # 0.4 10 0.0-0.8 [place] # REZA ([facility]) baso # 0.1 10 0.0-0.2 Baso # REZA ([facility]) ID Date Data Source [id number] 09/30/2020 01:50:00 PM EST REZA ([facility]) Name Value Range Interpretation Code Description Data Joyce rce(s) Supporting Document(s) red blood count 4.49 10 4.00-5.40 Red Blood Count ATHE ([facility]) white blood count 6.0 10 4.0-10.0 White Blood Count REZA ([facility]) hemoglobin 14.0 g/dL 12.0-15.5 Hemoglobin REZA ([facility]) mean corpuscular volume 95.3 fL 80.0-96.0 Mean Corpusc ular Volume REZA ([facility]) hematocrit 42.8 % 36.0-47.0 Hematocrit REZA ([facility]) mean corpuscular hemoglobin 31.2 pg 27.0-33.0 Mean Cor puscular Hemoglobin REZA ([facility]) mean corpuscular HGB conc 32.7 g/dL 32.0-36.5 Mean Corpu scular HGB Conc REZA ([facility]) red cell distribution width 14.5 % 11.5-14.5 Red Cell Distribution Width REZA ([facility]) platelet count, automated 300 10 150-450 Platelet C ount, Automated REZA ([facility]) neutrophils % 66.6 % 36.0-66.0 Above high normal Neutrophils % A THENA ([facility]) lymph % 24.3 % 24.0-44.0 Lymph % REZA ([facility]) mono % 7.1 % 2.0-8.0 [place] % REZA ([facility]) eos % 0.8 % 0.0-3.0 Eos % REZA ([facility]) baso % 1.0 % 0.0-1.0 Baso % [place] ([facility]) immature granulocyte % 0.2 % 0-3.0 Immature Gran ulocyte % REZA ([facility]) nucleated red blood cell % 0.0 % 0-0 Nucleated Red Blood Cell % REZA ([facility]) neutrophils # 4.0 10 1.5-8.5 Neutrophils # REZA ( [facility]) lymph # 1.5 10 1.5-5.0 Lymph # REZA ([facility]) eos # 0.1 10 0.0-0.5 Eos # REZA ([facility]) baso # 0.1 10 0.0-0.2 Baso # REZA ([facility]) mono # 0.4 10 0.0-0.8 [place] # REZA ([facility]) ID Date Data Source [id number] 09/30/2020 01:50:00 PM EST REZA ([facility]) Name Value Range Interpretation Code Description Data Joyce rce(s) Supporting Document(s) white blood count 6.0 10 4.0-10.0 White Blood Count REZA ([facility]) red blood count 4.49 10 4.00-5.40 Red Blood Count ATHE NA ([facility]) hematocrit 42.8 % 36.0-47.0 Hematocrit REZA ([facility]) hemoglobin 14.0 g/dL 12.0-15.5 Hemoglobin REZA ([facility]) mean corpuscular volume 95.3 fL 80.0-96.0 Mean Corpusc ular Volume REZA ([facility]) mean corpuscular hemoglobin 31.2 pg 27.0-33.0 Mean Cor puscular Hemoglobin REZA ([facility]) mean corpuscular HGB conc 32.7 g/dL 32.0-36.5 Mean Corpu scular HGB Conc REZA ([facility]) red cell distribution width 14.5 % 11.5-14.5 Red Cell Distribution Width REZA ([facility]) platelet count, automated 300 10 150-450 Platelet C ount, Automated REZA ([facility]) neutrophils % 66.6 % 36.0-66.0 Above high normal Neutrophils % A THENA ([facility]) lymph % 24.3 % 24.0-44.0 Lymph % [place] ([facility]) eos % 0.8 % 0.0-3.0 Eos % [place] ([facility]) mono % 7.1 % 2.0-8.0 [place] % REZA ([facility]) baso % 1.0 % 0.0-1.0 Baso % REZA ([facility]) nucleated red blood cell % 0.0 % 0-0 Nucleated Red Blood Cell % [place] ([facility]) immature granulocyte % 0.2 % 0-3.0 Immature Gran ulocyte % REZA ([facility]) mono # 0.4 10 0.0-0.8 [place] # REZA ([facility]) neutrophils # 4.0 10 1.5-8.5 Neutrophils # REZA ( [facility]) lymph # 1.5 10 1.5-5.0 Lymph # REZA ([facility]) baso # 0.1 10 0.0-0.2 Baso # REZA ([facility]) eos # 0.1 10 0.0-0.5 Eos # REZA ([facility]) ID Date Data Source [id number] 09/30/2020 01:50:00 PM EST REZA ([facility]) Name Value Range Interpretation Code Description Data Joyce rce(s) Supporting Document(s) white blood count 6.0 10 4.0-10.0 White Blood Count REZA ([facility]) red blood count 4.49 10 4.00-5.40 Red Blood Count ATHE NA ([facility]) hemoglobin 14.0 g/dL 12.0-15.5 Hemoglobin REZA ([facility]) mean corpuscular volume 95.3 fL 80.0-96.0 Mean Corpusc ular Volume REZA ([facility]) mean corpuscular hemoglobin 31.2 pg 27.0-33.0 Mean Cor puscular Hemoglobin REZA ([facility]) hematocrit 42.8 % 36.0-47.0 Hematocrit REZA ([facility]) mean corpuscular HGB conc 32.7 g/dL 32.0-36.5 Mean Corpu scular HGB Conc REZA ([facility]) platelet count, automated 300 10 150-450 Platelet C ount, Automated REZA ([facility]) red cell distribution width 14.5 % 11.5-14.5 Red Cell Distribution Width REZA ([facility]) neutrophils % 66.6 % 36.0-66.0 Above high normal Neutrophils % A THENA ([facility]) lymph % 24.3 % 24.0-44.0 Lymph % REZA ([facility]) mono % 7.1 % 2.0-8.0 [place] % REZA ([facility]) immature granulocyte % 0.2 % 0-3.0 Immature Gran ulocyte % REZA ([facility]) eos % 0.8 % 0.0-3.0 Eos % REZA ([facility]) baso % 1.0 % 0.0-1.0 Baso % REZA ([facility]) lymph # 1.5 10 1.5-5.0 Lymph # REZA ([facility]) neutrophils # 4.0 10 1.5-8.5 Neutrophils # [place] ( [facility]) nucleated red blood cell % 0.0 % 0-0 Nucleated Red Blood Cell % REZA ([facility]) eos # 0.1 10 0.0-0.5 Eos # REZA ([facility]) baso # 0.1 10 0.0-0.2 Baso # REZA ([facility]) mono # 0.4 10 0.0-0.8 [place] # REZA ([facility]) ID Date Data Source [id number] 09/30/2020 01:50:00 PM EST REZA ([facility]) Name Value Range Interpretation Code Description Data Joyce rce(s) Supporting Document(s) white blood count 6.0 10 4.0-10.0 White Blood Count REZA ([facility]) red blood count 4.49 10 4.00-5.40 Red Blood Count ATHE NA ([facility]) hematocrit 42.8 % 36.0-47.0 Hematocrit REZA ([facility]) hemoglobin 14.0 g/dL 12.0-15.5 Hemoglobin REZA ([facility]) mean corpuscular hemoglobin 31.2 pg 27.0-33.0 Mean Cor puscular Hemoglobin REZA ([facility]) mean corpuscular volume 95.3 fL 80.0-96.0 Mean Corpusc ular Volume REZA ([facility]) mean corpuscular HGB conc 32.7 g/dL 32.0-36.5 Mean Corpu scular HGB Conc REZA ([facility]) platelet count, automated 300 10 150-450 Platelet C ount, Automated REZA ([facility]) neutrophils % 66.6 % 36.0-66.0 Above high normal Neutrophils % A THENA ([facility]) red cell distribution width 14.5 % 11.5-14.5 Red Cell Distribution Width REZA ([facility]) mono % 7.1 % 2.0-8.0 [place] % REZA ([facility]) lymph % 24.3 % 24.0-44.0 Lymph % REZA ([facility]) eos % 0.8 % 0.0-3.0 Eos % REZA ([facility]) baso % 1.0 % 0.0-1.0 Baso % REZA ([facility]) neutrophils # 4.0 10 1.5-8.5 Neutrophils # REZA ( [facility]) immature granulocyte % 0.2 % 0-3.0 Immature Gran ulocyte % REZA ([facility]) nucleated red blood cell % 0.0 % 0-0 Nucleated Red Blood Cell % REZA ([facility]) baso # 0.1 10 0.0-0.2 Baso # REZA ([facility]) eos # 0.1 10 0.0-0.5 Eos # REZA ([facility]) lymph # 1.5 10 1.5-5.0 Lymph # REZA ([facility]) mono # 0.4 10 0.0-0.8 [place] # REZA ([facility]) ID Date Data Source [id number] 09/30/2020 01:50:00 PM EST REZA ([facility]) Name Value Range Interpretation Code Description Data Joyce rce(s) Supporting Document(s) red blood count 4.49 10 4.00-5.40 Red Blood Count ATHE NA ([facility]) white blood count 6.0 10 4.0-10.0 White Blood Count REZA ([facility]) hematocrit 42.8 % 36.0-47.0 Hematocrit REZA ([facility]) mean corpuscular volume 95.3 fL 80.0-96.0 Mean Corpusc ular Volume REZA ([facility]) hemoglobin 14.0 g/dL 12.0-15.5 Hemoglobin REZA ([facility]) red cell distribution width 14.5 % 11.5-14.5 Red Cell Distribution Width REZA ([facility]) mean corpuscular hemoglobin 31.2 pg 27.0-33.0 Mean Cor puscular Hemoglobin REZA ([facility]) mean corpuscular HGB conc 32.7 g/dL 32.0-36.5 Mean Corpu scular HGB Conc REZA ([facility]) mono % 7.1 % 2.0-8.0 [place] % REZA ([facility]) lymph % 24.3 % 24.0-44.0 Lymph % REZA ([facility]) neutrophils % 66.6 % 36.0-66.0 Above high normal Neutrophils % A THENA ([facility]) platelet count, automated 300 10 150-450 Platelet C ount, Automated REZA ([facility]) immature granulocyte % 0.2 % 0-3.0 Immature Gran ulocyte % REZA ([facility]) eos % 0.8 % 0.0-3.0 Eos % REZA ([facility]) baso % 1.0 % 0.0-1.0 Baso % REZA ([facility]) lymph # 1.5 10 1.5-5.0 Lymph # REZA ([facility]) neutrophils # 4.0 10 1.5-8.5 Neutrophils # [place] ( [facility]) nucleated red blood cell % 0.0 % 0-0 Nucleated Red Blood Cell % REZA ([facility]) eos # 0.1 10 0.0-0.5 Eos # REZA ([facility]) mono # 0.4 10 0.0-0.8 [place] # REZA ([facility]) baso # 0.1 10 0.0-0.2 Baso # REZA ([facility]) ID Date Data Source [id number] 09/30/2020 01:43:00 PM EST REZA ([facility]) Name Value Range Interpretation Code Description Data Joyce rce(s) Supporting Document(s) bilirubin Bilirubin REZA ([facility]) glucose Glucose REZA ([facility]) ketone Ketone REZA ([facility]) leukocytes Leukocytes REZA ([facility]) blood Blood REZA ([facility]) specific gravity Specific [place] AT [facility] ([facility]) pH Ph REZA ([facility]) nitrite Nitrite REZA ([facility]) protein Protein REZA ([facility]) urobilinogen Urobilinogen REZA ([facility]) ID Date Data Source [id number] 09/30/2020 01:43:00 PM EST REZA ([facility]) Name Value Range Interpretation Code Description Data Joyce rce(s) Supporting Document(s) bilirubin Bilirubin REZA ([facility]) blood Blood REZA ([facility]) glucose Glucose REZA ([facility]) leukocytes Leukocytes REZA ([facility]) ketone Ketone REZA ([facility]) pH Ph REZA ([facility]) nitrite Nitrite REZA ([facility]) specific gravity Specific [place] AT [place] ([facility]) protein Protein REZA ([facility]) urobilinogen Urobilinogen REZA ([facility]) ID Date Data Source [id number] 09/30/2020 01:43:00 PM EST REZA ([facility]) Name Value Range Interpretation Code Description Data Joyce rce(s) Supporting Document(s) bilirubin Bilirubin REZA ([facility]) blood Blood REZA ([facility]) glucose Glucose REZA ([facility]) ketone Ketone REZA ([facility]) nitrite Nitrite REZA ([facility]) leukocytes Leukocytes REZA ([facility]) pH Ph REZA ([facility]) protein Protein REZA ([facility]) urobilinogen Urobilinogen REZA ([facility]) specific gravity Specific [place] AT [facility] ([facility]) ID Date Data Source [id number] 09/30/2020 01:43:00 PM EST REZA ([facility]) Name Value Range Interpretation Code Description Data Joyce rce(s) Supporting Document(s) bilirubin Bilirubin REZA ([facility]) blood Blood REZA ([facility]) glucose Glucose REZA ([facility]) nitrite Nitrite REZA ([facility]) leukocytes Leukocytes REZA ([facility]) pH Ph REZA ([facility]) ketone Ketone REZA ([facility]) specific gravity Specific [place] AT [place] ([facility]) protein Protein REZA ([facility]) urobilinogen Urobilinogen REZA ([facility]) ID Date Data Source [id number] 09/30/2020 01:43:00 PM EST REZA ([facility]) Name Value Range Interpretation Code Description Data Joyce rce(s) Supporting Document(s) blood Blood REZA ([facility]) bilirubin Bilirubin REZA ([facility]) glucose Glucose REZA ([facility]) leukocytes Leukocytes REZA ([facility]) nitrite Nitrite REZA ([facility]) ketone Ketone REZA ([facility]) protein Protein REZA ([facility]) specific gravity Specific [place] AT [place] ([facility]) urobilinogen Urobilinogen REZA ([facility]) pH Ph REZA ([facility]) ID Date Data Source [id number] 09/30/2020 01:43:00 PM EST REZA ([facility]) Name Value Range Interpretation Code Description Data Joyce rce(s) Supporting Document(s) bilirubin Bilirubin REZA ([facility]) ketone Ketone REZA ([facility]) glucose Glucose REZA ([facility]) blood Blood REZA ([facility]) leukocytes Leukocytes REZA ([facility]) pH Ph REZA ([facility]) nitrite Nitrite REZA ([facility]) protein Protein REZA ([facility]) urobilinogen Urobilinogen REZA ([facility]) specific gravity Specific [place] AT [place] ([facility]) ID Date Data Source [id number] 09/30/2020 01:43:00 PM EST REZA ([facility]) Name Value Range Interpretation Code Description Data Joyce rce(s) Supporting Document(s) bilirubin Bilirubin REZA ([facility]) blood Blood REZA ([facility]) glucose Glucose REZA ([facility]) ketone Ketone REZA ([facility]) pH Ph REZA ([facility]) leukocytes Leukocytes REZA ([facility]) nitrite Nitrite REZA ([facility]) protein Protein REZA ([facility]) specific gravity Specific [place] AT [facility] ([facility]) urobilinogen Urobilinogen REZA ([facility]) ID Date Data Source [id number] 09/30/2020 01:43:00 PM EST REZA ([facility]) Name Value Range Interpretation Code Description Data Joyce rce(s) Supporting Document(s) bilirubin Bilirubin REZA ([facility]) blood Blood REZA ([facility]) nitrite Nitrite REZA ([facility]) ketone Ketone REZA ([facility]) leukocytes Leukocytes REZA ([facility]) glucose Glucose REZA ([facility]) protein Protein REZA ([facility]) pH Ph REZA ([facility]) urobilinogen Urobilinogen REZA ([facility]) specific gravity [facility] [place] [facility] ID Date Data Source [id number] 09/30/2020 01:43:00 PM EST REZA ([facility]) Name Value Range Interpretation Code Description Data Joyce rce(s) Supporting Document(s) bilirubin Bilirubin REZA ([facility]) glucose Glucose REZA ([facility]) blood Blood REZA ([facility]) leukocytes Leukocytes REZA ([facility]) ketone Ketone REZA ([facility]) specific gravity Specific [place] AT [place] ([facility]) nitrite Nitrite REZA ([facility]) protein Protein REZA ([facility]) pH Ph REZA ([facility]) urobilinogen Urobilinogen REZA ([facility]) ID Date Data Source [id number] 09/30/2020 01:43:00 PM EST REZA ([facility]) Name Value Range Interpretation Code Description Data Joyce rce(s) Supporting Document(s) bilirubin Bilirubin REZA ([facility]) leukocytes Leukocytes REZA ([facility]) glucose Glucose REZA ([facility]) blood Blood REZA ([facility]) ketone Ketone REZA ([facility]) nitrite Nitrite REZA ([facility]) pH Ph REZA ([facility]) protein Protein REZA ([facility]) specific gravity Specific [place] AT [place] ([facility]) urobilinogen Urobilinogen REZA ([facility]) ID Date Data Source [id number] 09/30/2020 01:15:00 PM EST REZA ([facility]) Name Value Range Interpretation Code Description Data Joyce rce(s) Supporting Document(s) color, urine yellow yellow Color, Urine REZA ([facility]) appearance, urine cloudy clear Above high normal Appearance, Urine REZA ([facility]) pH,urine 8.0 units 5.0-9.0 pH,urine REZA ([facility]) specific gravity urine auto 1.002-1.035 Specifi c [place] Urine Auto REZA ([facility]) protein, urine auto negative negative Protein, Urine A uto REZA ([facility]) ketone, urine auto negative negative Ketone, Urine Aut o REZA ([facility]) glucose, urine (UA) auto negative negative Glucose, Ur ine (UA) Auto [place] ([facility]) urobilinogen, urine auto 0.2 mg/dL 0.0-2.0 Urobilinoge n, Urine Auto REZA ([facility]) bilirubin, urine auto negative negative Bilirubin, Uri ne Auto REZA ([facility]) nitrite, urine auto negative negative Nitrite, Urine A uto REZA ([facility]) blood, urine blood negative negative Blood, Urine Bloo d REZA ([facility]) leukocyte esterase, urine auto negative negative Leukocyte Esterase, Urine Auto REZA ([facility]) RBC, urine auto 0 /hpf 0-3 RBC, Urine Auto ATHE NA ([facility]) WBC, urine auto 1 /hpf 0-3 WBC, Urine Auto ATHE NA ([facility]) bacteria, urine auto negative negative Bacteria, Urine Auto REZA ([facility]) mucus, urine small negative Mucus, Urine REZA (No [facility]) squamous epithelial cell ur AU 0 /hpf 0-6 Squam ous Epithelial Cell Ur AU REZA ([facility]) hyaline cast, urine auto 0 /lpf 0-1 Hyaline Reji t, Urine Auto REZA ([facility]) amorphous sediment moderate negative Above high normal Amorphous Sediment REZA ([facility]) ID Date Data Source [id number] 09/30/2020 01:15:00 PM EST REZA ([facility]) Name Value Range Interpretation Code Description Data Joyce rce(s) Supporting Document(s) appearance, urine cloudy clear Above high normal Appearance, Urine REZA ([facility]) pH,urine 8.0 units 5.0-9.0 pH,urine REZA ([facility]) color, urine yellow yellow Color, Urine REZA (No [facility]) specific gravity urine auto 1.002-1.035 Specifi c [place] Urine Auto REZA ([facility]) protein, urine auto negative negative Protein, Urine A uto REZA ([facility]) glucose, urine (UA) auto negative negative Glucose, Ur ine (UA) Auto REZA ([facility]) ketone, urine auto negative negative Ketone, Urine Aut o REZA ([facility]) urobilinogen, urine auto 0.2 mg/dL 0.0-2.0 Urobilinoge n, Urine Auto REZA ([facility]) bilirubin, urine auto negative negative Bilirubin, Uri ne Auto REZA ([facility]) leukocyte esterase, urine auto negative negative Leukocyte Esterase, Urine Auto REZA ([facility]) nitrite, urine auto negative negative Nitrite, Urine A uto REZA ([facility]) RBC, urine auto 0 /hpf 0-3 RBC, Urine Auto ATHE NA ([facility]) blood, urine blood negative negative Blood, Urine Bloo d REZA ([facility]) WBC, urine auto 1 /hpf 0-3 WBC, Urine Auto ATHE NA ([facility]) squamous epithelial cell ur AU 0 /hpf 0-6 Squam ous Epithelial Cell Ur AU REZA ([facility]) bacteria, urine auto negative negative Bacteria, Urine Auto REZA ([facility]) hyaline cast, urine auto 0 /lpf 0-1 Hyaline Reji t, Urine Auto REZA ([facility]) mucus, urine small negative Mucus, Urine REZA (No [facility]) amorphous sediment moderate negative Above high normal Amorphous Sediment REZA ([facility]) ID Date Data Source [id number] 09/30/2020 01:15:00 PM EST REZA ([facility]) Name Value Range Interpretation Code Description Data Joyce rce(s) Supporting Document(s) color, urine yellow yellow Color, Urine REZA (No [facility]) appearance, urine cloudy clear Above high normal Appearance, Urine REZA ([facility]) pH,urine 8.0 units 5.0-9.0 pH,urine REZA ([facility]) specific gravity urine auto 1.002-1.035 Specifi c [place] Urine Auto REZA ([facility]) protein, urine auto negative negative Protein, Urine A uto REZA ([facility]) glucose, urine (UA) auto negative negative Glucose, Ur ine (UA) Auto REZA ([facility]) urobilinogen, urine auto 0.2 mg/dL 0.0-2.0 Urobilinoge n, Urine Auto REZA ([facility]) ketone, urine auto negative negative Ketone, Urine Aut o REZA ([facility]) leukocyte esterase, urine auto negative negative Leukocyte Esterase, Urine Auto REZA ([facility]) nitrite, urine auto negative negative Nitrite, Urine A uto REZA ([facility]) bilirubin, urine auto negative negative Bilirubin, Uri ne Auto REZA ([facility]) RBC, urine auto 0 /hpf 0-3 RBC, Urine Auto ATHE NA ([facility]) WBC, urine auto 1 /hpf 0-3 WBC, Urine Auto ATHE NA ([facility]) blood, urine blood negative negative Blood, Urine Bloo d REZA ([facility]) bacteria, urine auto negative negative Bacteria, Urine Auto REZA ([facility]) mucus, urine small negative Mucus, Urine REZA (No [facility]) squamous epithelial cell ur AU 0 /hpf 0-6 Squam ous Epithelial Cell Ur AU REZA ([facility]) amorphous sediment moderate negative Above high normal Amorphous Sediment REZA ([facility]) hyaline cast, urine auto 0 /lpf 0-1 Hyaline Reji t, Urine Auto REZA ([facility]) ID Date Data Source [id number] 09/30/2020 01:15:00 PM EST REZA ([facility]) Name Value Range Interpretation Code Description Data Joyce rce(s) Supporting Document(s) appearance, urine cloudy clear Above high normal Appearance, Urine REZA ([facility]) color, urine yellow yellow Color, Urine REZA (No [facility]) pH,urine 8.0 units 5.0-9.0 pH,urine REZA ([facility]) protein, urine auto negative negative Protein, Urine A uto REZA ([facility]) specific gravity urine auto 1.002-1.035 Specifi c [place] Urine Auto REZA ([facility]) bilirubin, urine auto negative negative Bilirubin, Uri ne Auto REZA ([facility]) urobilinogen, urine auto 0.2 mg/dL 0.0-2.0 Urobilinoge n, Urine Auto REZA ([facility]) ketone, urine auto negative negative Ketone, Urine Aut o REZA ([facility]) glucose, urine (UA) auto negative negative Glucose, Ur ine (UA) Auto REZA ([facility]) WBC, urine auto 1 /hpf 0-3 WBC, Urine Auto ATHE NA ([facility]) leukocyte esterase, urine auto negative negative Leukocyte Esterase, Urine Auto REZA ([facility]) blood, urine blood negative negative Blood, Urine Bloo d REZA ([facility]) nitrite, urine auto negative negative Nitrite, Urine A uto REZA ([facility]) RBC, urine auto 0 /hpf 0-3 RBC, Urine Auto ATHE NA ([facility]) bacteria, urine auto negative negative Bacteria, Urine Auto REZA ([facility]) squamous epithelial cell ur AU 0 /hpf 0-6 Squam ous Epithelial Cell Ur AU REZA ([facility]) amorphous sediment moderate negative Above high normal Amorphous Sediment REZA ([facility]) mucus, urine small negative Mucus, Urine REZA (No [facility]) hyaline cast, urine auto 0 /lpf 0-1 Hyaline Reji t, Urine Auto REZA ([facility]) ID Date Data Source [id number] 09/30/2020 01:15:00 PM EST REZA ([facility]) Name Value Range Interpretation Code Description Data Joyce rce(s) Supporting Document(s) appearance, urine cloudy clear Above high normal Appearance, Urine REZA ([facility]) pH,urine 8.0 units 5.0-9.0 pH,urine REZA ([facility]) color, urine yellow yellow Color, Urine REZA (No [facility]) protein, urine auto negative negative Protein, Urine A uto REZA ([facility]) glucose, urine (UA) auto negative negative Glucose, Ur ine (UA) Auto REZA ([facility]) specific gravity urine auto 1.002-1.035 Specifi c [place] Urine Auto REZA ([facility]) ketone, urine auto negative negative Ketone, Urine Aut o REZA ([facility]) urobilinogen, urine auto 0.2 mg/dL 0.0-2.0 Urobilinoge n, Urine Auto REZA ([facility]) nitrite, urine auto negative negative Nitrite, Urine A uto REZA ([facility]) bilirubin, urine auto negative negative Bilirubin, Uri ne Auto REZA ([facility]) leukocyte esterase, urine auto negative negative Leukocyte Esterase, Urine Auto REZA ([facility]) blood, urine blood negative negative Blood, Urine Bloo d REZA ([facility]) WBC, urine auto 1 /hpf 0-3 WBC, Urine Auto ATHE NA ([facility]) RBC, urine auto 0 /hpf 0-3 RBC, Urine Auto ATHE NA ([facility]) mucus, urine small negative Mucus, Urine REZA ([facility]) bacteria, urine auto negative negative Bacteria, Urine Auto REZA ([facility]) squamous epithelial cell ur AU 0 /hpf 0-6 Squam ous Epithelial Cell Ur AU REZA ([facility]) hyaline cast, urine auto 0 /lpf 0-1 Hyaline Reji t, Urine Auto REZA ([facility]) amorphous sediment moderate negative Above high normal Amorphous Sediment REZA ([facility]) ID Date Data Source [id number] 09/30/2020 01:15:00 PM EST REZA ([facility]) Name Value Range Interpretation Code Description Data Joyce rce(s) Supporting Document(s) appearance, urine cloudy clear Above high normal Appearance, Urine REZA ([facility]) color, urine yellow yellow Color, Urine REZA ([facility]) pH,urine 8.0 units 5.0-9.0 pH,urine REZA ([facility]) specific gravity urine auto 1.002-1.035 Specifi c [place] Urine Auto REZA ([facility]) glucose, urine (UA) auto negative negative Glucose, Ur ine (UA) Auto REZA ([facility]) protein, urine auto negative negative Protein, Urine A uto REZA ([facility]) ketone, urine auto negative negative Ketone, Urine Aut o REZA ([facility]) urobilinogen, urine auto 0.2 mg/dL 0.0-2.0 Urobilinoge n, Urine Auto REZA ([facility]) bilirubin, urine auto negative negative Bilirubin, Uri ne Auto REZA ([facility]) nitrite, urine auto negative negative Nitrite, Urine A uto REZA ([facility]) blood, urine blood negative negative Blood, Urine Bloo d REZA ([facility]) leukocyte esterase, urine auto negative negative Leukocyte Esterase, Urine Auto REZA ([facility]) WBC, urine auto 1 /hpf 0-3 WBC, Urine Auto ATHE NA ([facility]) RBC, urine auto 0 /hpf 0-3 RBC, Urine Auto ATHE NA ([facility]) bacteria, urine auto negative negative Bacteria, Urine Auto REZA ([facility]) amorphous sediment moderate negative Above high normal Amorphous Sediment REZA ([facility]) squamous epithelial cell ur AU 0 /hpf 0-6 Squam ous Epithelial Cell Ur AU REZA ([facility]) hyaline cast, urine auto 0 /lpf 0-1 Hyaline Reji t, Urine Auto REZA ([facility]) mucus, urine small negative Mucus, Urine REZA (No [facility]) ID Date Data Source [id number] 09/30/2020 01:15:00 PM EST REZA ([facility]) Name Value Range Interpretation Code Description Data Joyce rce(s) Supporting Document(s) appearance, urine cloudy clear Above high normal Appearance, Urine REZA ([facility]) color, urine yellow yellow Color, Urine REZA (No [facility]) pH,urine 8.0 units 5.0-9.0 pH,urine REZA ([facility]) specific gravity urine auto 1.002-1.035 Specifi c [place] Urine Auto REZA ([facility]) protein, urine auto negative negative Protein, Urine A uto REZA ([facility]) ketone, urine auto negative negative Ketone, Urine Aut o REZA ([facility]) glucose, urine (UA) auto negative negative Glucose, Ur ine (UA) Auto REZA ([facility]) bilirubin, urine auto negative negative Bilirubin, Uri ne Auto REZA ([facility]) nitrite, urine auto negative negative Nitrite, Urine A uto REZA ([facility]) urobilinogen, urine auto 0.2 mg/dL 0.0-2.0 Urobilinoge n, Urine Auto REZA ([facility]) blood, urine blood negative negative Blood, Urine Bloo d REZA ([facility]) leukocyte esterase, urine auto negative negative Leukocyte Esterase, Urine Auto REZA ([facility]) WBC, urine auto 1 /hpf 0-3 WBC, Urine Auto ATHE NA ([facility]) RBC, urine auto 0 /hpf 0-3 RBC, Urine Auto ATHE NA ([facility]) mucus, urine small negative Mucus, Urine REZA ([facility]) bacteria, urine auto negative negative Bacteria, Urine Auto REZA ([facility]) squamous epithelial cell ur AU 0 /hpf 0-6 Squam ous Epithelial Cell Ur AU REZA ([facility]) hyaline cast, urine auto 0 /lpf 0-1 Hyaline Reji t, Urine Auto REZA ([facility]) amorphous sediment moderate negative Above high normal Amorphous Sediment REZA ([facility]) ID Date Data Source [id number] 09/30/2020 01:15:00 PM EST REZA ([facility]) Name Value Range Interpretation Code Description Data Joyce rce(s) Supporting Document(s) pH,urine 8.0 units 5.0-9.0 pH,urine REZA ([facility]) color, urine yellow yellow Color, Urine REZA ([facility]) appearance, urine cloudy clear Above high normal Appearance, Urine REZA ([facility]) specific gravity urine auto 1.002-1.035 Specifi c [place] Urine Auto REZA ([facility]) protein, urine auto negative negative Protein, Urine A uto REZA ([facility]) glucose, urine (UA) auto negative negative Glucose, Ur ine (UA) Auto REZA ([facility]) ketone, urine auto negative negative Ketone, Urine Aut o REZA ([facility]) nitrite, urine auto negative negative Nitrite, Urine A uto REZA ([facility]) bilirubin, urine auto negative negative Bilirubin, Uri ne Auto REZA ([facility]) urobilinogen, urine auto 0.2 mg/dL 0.0-2.0 Urobilinoge n, Urine Auto REZA ([facility]) blood, urine blood negative negative Blood, Urine Bloo d REZA ([facility]) RBC, urine auto 0 /hpf 0-3 RBC, Urine Auto ATHE NA ([facility]) WBC, urine auto 1 /hpf 0-3 WBC, Urine Auto ATHE NA ([facility]) leukocyte esterase, urine auto negative negative Leukocyte Esterase, Urine Auto REZA ([facility]) squamous epithelial cell ur AU 0 /hpf 0-6 Squam ous Epithelial Cell Ur AU REZA ([facility]) bacteria, urine auto negative negative Bacteria, Urine Auto REZA ([facility]) mucus, urine small negative Mucus, Urine REZA ([facility]) amorphous sediment moderate negative Above high normal Amorphous Sediment REZA ([facility]) hyaline cast, urine auto 0 /lpf 0-1 Hyaline Reji t, Urine Auto REZA ([facility]) ID Date Data Source [id number] 09/30/2020 01:15:00 PM EST REZA ([facility]) Name Value Range Interpretation Code Description Data Joyce rce(s) Supporting Document(s) appearance, urine cloudy clear Above high normal Appearance, Urine REZA ([facility]) pH,urine 8.0 units 5.0-9.0 pH,urine REZA ([facility]) color, urine yellow yellow Color, Urine REZA (No [facility]) protein, urine auto negative negative Protein, Urine A uto REZA ([facility]) ketone, urine auto negative negative Ketone, Urine Aut o REZA ([facility]) glucose, urine (UA) auto negative negative Glucose, Ur ine (UA) Auto REZA ([facility]) specific gravity urine auto 1.002-1.035 Specifi c [place] Urine Auto REZA ([facility]) bilirubin, urine auto negative negative Bilirubin, Uri ne Auto REZA ([facility]) urobilinogen, urine auto 0.2 mg/dL 0.0-2.0 Urobilinoge n, Urine Auto REZA ([facility]) nitrite, urine auto negative negative Nitrite, Urine A uto REZA ([facility]) leukocyte esterase, urine auto negative negative Leukocyte Esterase, Urine Auto REZA ([facility]) WBC, urine auto 1 /hpf 0-3 WBC, Urine Auto ATHE NA ([facility]) RBC, urine auto 0 /hpf 0-3 RBC, Urine Auto ATHE NA ([facility]) blood, urine blood negative negative Blood, Urine Bloo d REZA ([facility]) bacteria, urine auto negative negative Bacteria, Urine Auto REZA ([facility]) hyaline cast, urine auto 0 /lpf 0-1 Hyaline Reji t, Urine Auto REZA ([facility]) mucus, urine small negative Mucus, Urine REZA (No [facility]) squamous epithelial cell ur AU 0 /hpf 0-6 Squam ous Epithelial Cell Ur AU REZA ([facility]) amorphous sediment moderate negative Above high normal Amorphous Sediment REZA ([facility]) ID Date Data Source [id number] 09/27/2020 09:30:00 AM EST [facility] Name Value Range Interpretation Code Description Data Joyce rce(s) Supporting Document(s) SARS coronavirus 2 RdRp gene Test performed using the [employer] ID NOW COVID-19 assay. This test is only for use under the Food and Drug Administration's Emergency Use Authorization. Additional information is available on the followin FDA websites for health care providers and patients. [place] This lab was ordered by [facility] and reported by [facility]. ID Date Data Source [id number] 09/27/2020 09:41:20 AM EST [facility] Name Value Range Interpretation Code Description Data Joyce rce(s) Supporting Document(s) SARS coronavirus 2 RdRp gene Negative [facility] Test performed using the [employer] ID NOW C OVID-19 assay. This test is only for use under the Food and Drug Administration's Emergency Use Authorization. Additional information is available on the following FDA websites for health care providers and patients.https://www.fda.gov/media/052950/downloadhttps://www.fda.gov/media/1365 24/download Patients first test for 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 When did you start to experience these symptoms [Date and time] [Phen X] [facility] Patient was hospitalized because of this condition [facility] patient was admitted to ICU for [facility] Patient resides in a congregate care setting [facility] status [facility] ID Date Data Source [id number] 09/27/2020 09:02:52 AM EST [facility] Name Value Range Interpretation Code Description Data Joyce rce(s) Supporting Document(s) Progress Note [facility] [id number] lbm [file] [id number] ID Date Data Source [id number] 09/26/2020 10:24:18 PM [facility] CT THORAX WITH CONTRAST [id number] RESUL TInterpreted by:NANCY JoseROCEDURE INFORMATION: Exam: CT Chest With Contrast; Diagnostic [...] rce(s) Supporting Document(s) ID Date Data Source [id number] 09/25/2020 10:17:45 PM EST [facility] Name Value Range Interpretation Code Description Data Joyce rce(s) Supporting Document(s) Progress Note [facility] [id number] lbm [file] [id number]tYU0/ZFzOlLxlijNi4f6hxNZL1XcN+Zl5ezAMi1qUbeZav7L4/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/c [file] ICAgICAgICAgICAgICAgICAgICAgICAgICAgICAgIC AgICAgICAgICAgICAgICAgICAgICAgICAgICAgICAgICAgICAgICAgICANCiAgICAgICAgICAgICAgIC AgICAgICAgICAgICAgICAgICAgICAgICAgICAgICAgICAgICAgICAgICAgICAgICAgICAgICAgICAgIC AgICAgICAgICAgICAgICAgICAgICAgICANCiAgICAg ICAgICAgICAgICAgICAgICAgICAgICAgICAgICAgICAgICAgICAgICAgICAgICAgICAgICAgICAgICAg ICAgICAgICAgICAgICAgICAgICAgICAgICAgICAgICAgICANCiAgICAgICAgICAgICAgICAgICAgICAg ICAgICAgICAgICAgICAgICAgICAgICAgICAgICAgIC AgICAgICAgICAgICAgICAgICAgICAgICAgICAgICAgICAgICAgICAgICAgICANCiAgICAgICAgICAgIC AgICAgICAgICAgICAgICAgICAgICAgICAgICAgICAgICAgICAgICAgICAgICAgICAgICAgICAgICAgIC AgICAgICAgICAgICAgICAgICAgICAgICAgICANCiAg ICAgICAgICAgICAgICAgICAgICAgICAgICAgICAgICAgICAgICAgICAgICAgICAgICAgICAgICAgICAg ICAgICAgICAgICAgICAgICAgICAgICAgICAgICAgICAgICAgICANCiAgICAgICAgICAgICAgICAgICAg ICAgICAgICAgICAgICAgICAgICAgICAgICAgICAgIC AgICAgICAgICAgICAgICAgICAgICAgICAgICAgICAgICAgICAgICAgICAgICAgICANCiAgICAgICAgIC AgICAgICAgICAgICAgICAgICAgICAgICAgICAgICAgICAgICAgICAgICAgICAgICAgICAgICAgICAgIC AgICAgICAgICAgICAgICAgICAgICAgICAgICAgICAN CiAgICAgICAgICAgICAgICAgICAgICAgICAgICAgICAgICAgICAgICAgICAgICAgICAgICAgICAgICAg ICAgICAgICAgICAgICAgICAgICAgICAgICAgICAgICAgICAgICAgICANCiAgICAgICAgICAgICAgICAg ICAgICAgICAgICAgICAgICAgICAgICAgICAgICAgIC AgICAgICAgICAgICAgICAgICAgICAgICAgICAgICAgICAgICAgICAgICAgICAgICAgICANCjw/eHBhY2 aetCGyhfS1W8xnEp4YWz0UXA5in8VuESWwCHmifnWxWsvLFdNnZCSpHbxYNun1OSmkMC6UnWCoV3SfX1 SfOZueJO0NUNToUJCiqVQqHORfXRVpYoS6KEPiRFrz XF4LjDVpRYlbWKQpTSRnGyYuXATzKOMiWIVaIYHkSUNPAXByNRWbKkTrHDTxTIYvNPfnTYFVYGE1KTAs PyIwNTPjEVQmRC8PEKVjY510yjVsZB7KYi9CKeCdRQ1ive2MJGKmJCAwRicJCba0RIgtAW0YpAGghIM4 GdUuHPQPIlEyC1ifd1UaTZpaATPLDCzwWF5Zy8OqvI AxDQo+Uk4GOV2sv4XcBOx6DnWrCY1bew5OKHpJAwEoK6GtyEcqEHNxj5rlWVUdKU6glVIaCLF3BONpeg jkWCYKwIGueZCrQS0DKFS6TVTyJBXqXhJnOEQfBIdfGJBCQAnXOlLkI9Dnl9YuQzF2VWOzQfVdDMqsJX JyWdC8HO26mQfpTJ6LGGAcPJKuGI62CXX8VRLyQa2V Qw4RYnSpNI1hsq7TZCwhBZWqOrvVQsr1XGryHS8WrHWrM7NvqCNbp3bRZtQmD6AEZKC7FAIwYk2AAONb QrPeWAFrSMvhER3yMVUwQRKGxZvzyhE2ML9VBH5hcgBzNG2ZTiKqAq8vLk5DPfTzH0LqX3MzWMHrHPID QMozOF8ZIYooIB6iQW0Hm9TOfAFheN5lso2UMVDwJD QpZgqqkg4WAnlrF1C1xJsdCAAzKQKgYNTFEXmjBM9PLSGpWUD3SHU2KMAdNKICTbDuY86sAX2EP2Kmp7 2aGaH9GOXtQfNbYAujKG49oWwtdtQepEWblWmaNM6QPb6+DQplbmRvYmoNCnhyZWYNCjAgNDkNCjAwMD PxTITsKRWcWaW8GdUqIk5DMCEzHLCtFQOrQgIfRZYn EEVjJIgrCICxMEjaCBM5FYBvMTUhUV2USnFkSVOqOEK0XoXoBAYqSNVkqa7GBVZuULQeESM2MxTgJOHo OVBeKUorBZVvYFX4CoEoXMYvZYNsKW5PAiCuBMAvVJL4HqUzHEKzRTXbab0AWAYvEXSaXJIfQgWeFDMv WOCaBAowSMKiWGOnSCXmHURrCCNrJX4SAkNfROGlQI PlKdFeRVUtSSOcdf9WZNQaBUSyEKA0BlWyTVMnKOYjTIskIWUfCRU7MWslDQVbGIFoZQ0JQrPgDSGbCR F4TbvkHZTgHYNvcy2AOQHrRNJcPLdtODTpDYQzAAWbGGepXCEpTTIfTKQ4VUNcFKYfDI3FZxJgFPKcFv H4YXDkWQRqBBUtjj5CLJCeKXHiHkXjVBRhETOcGPDa JJzzXWGiKXE4CPYuUUCcHVPeQM0HDxCqDIFiMiw8NyphSGXfKVQane8GHJYvICXiJrHmKNWbZZWbGAXc OQfdOOGtMZLeVqE1RXKjJAPiQM5CAhTyYNJjExFqYjVyDLOlBDAcby1RZVTqNJWdIkJtFOVkDECrLTLk IVvrJNReXZC5TJuxSEAyJMSlSG8KLeVrCQSvHgosDN jpTYTrKMGvwi0YAAVbLYMmFyK8PGWhTLHsOACqASbeYSOcVQJ7PUW3PFTySSEnIW8NWxVrJFIeNmd2Oi XrPKFwUKUknx3DYBJyBBGbQRcgNFTwXXGhKSEvLQbaVLIqNCIyMqP6AHXuOBIsNQ4AXnOfSJQxXVW9Yd GcFMVoEDYwwb8MEMOlUVK4UYa4DrTnTTVeZESqOJse OFDtTVQwBPItSBSrCOVjOK7OIvRmRWZcUGTvXhcoYGCjQFVxzn8QIOEpKVG8DhWwDyRkZFIgQPNeBXzi AYRtVEQpAOK4MUIuUZPgVZ8UPgQoSIVwJOH0OmMyFATeNODqcq7QBHIfEPU6ZOl6UtDdOUHsOSEqSBnl HROmUKw0EfNjJLOdIUPrIU4UXlVyDBHhYmn1ZmCeCT ZpUNKjhg0GXKUgHBG9JPXmFKVsXYZsDRUfELwwINCdAQlvSrm4CRHuKYBpEK0TCyMwESPuVVP4YyAtLY GaESByzf8DCGNxSEP8FFdoHFPxBIKqQTGlRKweUYVyFNnxAQs4YMVrIMSjOP9PFhAdOASiAZB2YlNoDK EeOPBwvs8CGDZsNEG1VNVuLwTwDUNwKTZjPGqzJFZq SKa0TSk0ZBVwWWGkFC4ZEkFbCJMsUBLbNIXrUAPvXVJpsl1JlKTzzCsdig6BICxWQw9TmQccZDU6UXsj Wq0nkCZ9BDBzFJUERb6OhqZdSQCeBSEJNVuwUAGhKUmmYZLqVnB8SOReNHT1ZbLxKFG5FbxaSbmpQPOe L7C9SnE6YrOpIER7XNe3XJJqEljdZSI2YvKeNcCjXH DaO1YiEFV+DN0tQTo+Xx4Os6HmcgW2zkJzGXp7CEE9ZY9NFVDZT0DWUy== ID Date Data Source [id number] 09/23/2020 01:00:00 PM EST [place] ([facility]) Name Value Range Interpretation Code Description Data Joyce rce(s) Supporting Document(s) thyroid stimulating hormone 7.930 uIU/mL 0.358-3.740 Above high no rmal Thyroid Stimulating Hormone [place] ([facility]) ID Date Data Source [id number] 09/23/2020 01:00:00 PM EST [place] ([facility]) Name Value Range Interpretation Code Description Data Joyce rce(s) Supporting Document(s) glucose, fasting 80 mg/dL 70-100 Glucose, Fasting AT [facility]) creatinine for GFR 0.68 mg/dL 0.55-1.30 Creatinine for GF R REZA ([facility]) blood urea nitrogen 6 mg/dL 7-18 Below low normal Blood Urea Nitrogen REZA ([facility]) glomerular filtration rate > 60.0 >58 Glomerula r Filtration Rate REZA ([facility]) sodium level 141 mEq/L 136-145 Sodium Level REZA ([facility]) chloride level 109 mEq/L 98-107 Above high normal Chloride Level REZA ([facility]) potassium serum 4.1 mEq/L 3.5-5.1 Potassium Serum ATHE NA ([facility]) carbon dioxide level 27 mEq/L 21-32 Carbon Dioxide Level [place] ([facility]) calcium level 9.4 mg/dL 8.5-10.1 Calcium Level [facility]) anion gap 5 mEq/L 8-16 Below low normal Anion Gap [place] ( [facility]) alkaline phosphatase 141 U/L 45-117 Above high normal Alkaline Phosphatase RE[facility] ([facility]) AST/SGOT 38 U/L 7-37 Above high normal AST/SGOT [place] [facility]) ALT/SGPT 143 U/L 12-78 Above high normal ALT/SGPT REZA ([facility]) bilirubin,total 0.2 mg/dL 0.2-1.0 Bilirubin,total ATHE [facility]) total protein 6.7 gm/dL 6.4-8.2 Total Protein REZA ( [facility]) albumin/globulin ratio 1.2-2.2 Below low normal Albumin /globulin Ratio REZA ([facility]) albumin 3.2 gm/dL 3.2-5.2 Albumin REZA ([facility]) ID Date Data Source [id number] 09/23/2020 01:00:00 [facility] Name Value Range Interpretation Code Description Data Joyce rce(s) Supporting Document(s) thyroid stimulating hormone 7.930 uIU/mL 0.358-3.740 Above high no rmal Thyroid Stimulating Hormone REZA ([facility]) ID Date Data Source [id number] 09/23/2020 01:00:00 PM EST REZA ([facility]) Name Value Range Interpretation Code Description Data Joyce rce(s) Supporting Document(s) glucose, fasting 80 mg/dL 70-100 Glucose, Fasting AT [facility]) glomerular filtration rate > 60.0 >58 Glomerula r Filtration Rate REZA ([facility]) sodium level 141 mEq/L 136-145 Sodium Level REZA ([facility]) blood urea nitrogen 6 mg/dL 7-18 Below low normal Blood Urea Nitrogen REZA ([facility]) creatinine for GFR 0.68 mg/dL 0.55-1.30 Creatinine for GF R REZA ([facility]) potassium serum 4.1 mEq/L 3.5-5.1 Potassium Serum ATHE [facility]) chloride level 109 mEq/L 98-107 Above high normal Chloride Level REZA ([facility]) carbon dioxide level 27 mEq/L 21-32 Carbon Dioxide Level [place] ([facility]) anion gap 5 mEq/L 8-16 Below low normal Anion Gap REZA ( [facility]) calcium level 9.4 mg/dL 8.5-10.1 Calcium Level REZA ( [facility]) AST/SGOT 38 U/L 7-37 Above high normal AST/SGOT REZA ([facility]) ALT/SGPT 143 U/L 12-78 Above high normal ALT/SGPT REZA ([facility]) alkaline phosphatase 141 U/L 45-117 Above high normal Alkaline Phosphatase REZA ([facility]) albumin 3.2 gm/dL 3.2-5.2 Albumin REZA ([facility]) bilirubin,total 0.2 mg/dL 0.2-1.0 Bilirubin,total ATHE [facility]) total protein 6.7 gm/dL 6.4-8.2 Total Protein REZA ( [facility]) albumin/globulin ratio 1.2-2.2 Below low normal Albumin /globulin Ratio REZA ([facility]) ID Date Data Source [id number] 09/23/2020 01:00:00 PM EST [place] ([facility]) Name Value Range Interpretation Code Description Data Joyce rce(s) Supporting Document(s) thyroid stimulating hormone 7.930 uIU/mL 0.358-3.740 Above high no rmal Thyroid Stimulating Hormone REZA ([facility]) ID Date Data Source [id number] 09/23/2020 01:00:00 PM EST REZA ([facility]) Name Value Range Interpretation Code Description Data Joyce rce(s) Supporting Document(s) blood urea nitrogen 6 mg/dL 7-18 Below low normal Blood Urea Nitrogen REZA ([facility]) glucose, fasting 80 mg/dL 70-100 Glucose, Fasting AT [facility] ([facility]) sodium level 141 mEq/L 136-145 Sodium Level REZA ([facility]) creatinine for GFR 0.68 mg/dL 0.55-1.30 Creatinine for GF R REZA ([facility]) glomerular filtration rate > 60.0 >58 Glomerula r Filtration Rate REZA ([facility]) carbon dioxide level 27 mEq/L 21-32 Carbon Dioxide Level REZA ([facility]) anion gap 5 mEq/L 8-16 Below low normal Anion Gap ERZA ( [facility]) chloride level 109 mEq/L 98-107 Above high normal Chloride Level REZA ([facility]) potassium serum 4.1 mEq/L 3.5-5.1 Potassium Serum ATHE NA ([facility]) alkaline phosphatase 141 U/L 45-117 Above high normal Alkaline Phosphatase REZA ([facility]) bilirubin,total 0.2 mg/dL 0.2-1.0 Bilirubin,total ATHE ([facility]) calcium level 9.4 mg/dL 8.5-10.1 Calcium Level REZA ( [facility]) AST/SGOT 38 U/L 7-37 Above high normal AST/SGOT REZA ([facility]) ALT/SGPT 143 U/L 12-78 Above high normal ALT/SGPT REZA ([facility]) albumin/globulin ratio 1.2-2.2 Below low normal Albumin /globulin Ratio REZA ([facility]) albumin 3.2 gm/dL 3.2-5.2 Albumin REZA ([facility]) total protein 6.7 gm/dL 6.4-8.2 Total Protein REZA ( [facility]) ID Date Data Source [id number] 09/23/2020 01:00:00 PM EST REZA ([facility]) Name Value Range Interpretation Code Description Data Joyce rce(s) Supporting Document(s) thyroid stimulating hormone 7.930 uIU/mL 0.358-3.740 Above high no rmal Thyroid Stimulating Hormone REZA ([facility]) ID Date Data Source [id number] 09/23/2020 01:00:00 PM EST REZA ([facility]) Name Value Range Interpretation Code Description Data Joyce rce(s) Supporting Document(s) glucose, fasting 80 mg/dL 70-100 Glucose, Fasting AT [place] ([facility]) blood urea nitrogen 6 mg/dL 7-18 Below low normal Blood Urea Nitrogen REZA ([facility]) creatinine for GFR 0.68 mg/dL 0.55-1.30 Creatinine for GF R REZA ([facility]) chloride level 109 mEq/L 98-107 Above high normal Chloride Level REZA ([facility]) carbon dioxide level 27 mEq/L 21-32 Carbon Dioxide Level REZA ([facility]) glomerular filtration rate > 60.0 >58 Glomerula r Filtration Rate REZA ([facility]) potassium serum 4.1 mEq/L 3.5-5.1 Potassium Serum ATHE NA ([facility]) sodium level 141 mEq/L 136-145 Sodium Level REZA ([facility]) ALT/SGPT 143 U/L 12-78 Above high normal ALT/SGPT [place] ([facility]) AST/SGOT 38 U/L 7-37 Above high normal AST/SGOT REZA ([facility]) calcium level 9.4 mg/dL 8.5-10.1 Calcium Level REZA ( [facility]) anion gap 5 mEq/L 8-16 Below low normal Anion Gap REZA ( [facility]) bilirubin,total 0.2 mg/dL 0.2-1.0 Bilirubin,total ATHE ([facility]) alkaline phosphatase 141 U/L 45-117 Above high normal Alkaline Phosphatase REZA ([facility]) total protein 6.7 gm/dL 6.4-8.2 Total Protein REZA ( [facility]) albumin 3.2 gm/dL 3.2-5.2 Albumin REZA ([facility]) albumin/globulin ratio 1.2-2.2 Below low normal Albumin /globulin Ratio REZA ([facility]) ID Date Data Source [id number] 09/23/2020 01:00:00 PM EST REZA ([facility]) Name Value Range Interpretation Code Description Data Joyce rce(s) Supporting Document(s) thyroid stimulating hormone 7.930 uIU/mL 0.358-3.740 Above high no rmal Thyroid Stimulating Hormone REZA ([facility]) ID Date Data Source [id number] 09/23/2020 01:00:00 PM EST REZA ([facility]) Name Value Range Interpretation Code Description Data Joyce rce(s) Supporting Document(s) glucose, fasting 80 mg/dL 70-100 Glucose, Fasting AT [facility] ([facility]) glomerular filtration rate > 60.0 >58 Glomerula r Filtration Rate REZA ([facility]) creatinine for GFR 0.68 mg/dL 0.55-1.30 Creatinine for GF R REZA ([facility]) blood urea nitrogen 6 mg/dL 7-18 Below low normal Blood Urea Nitrogen REZA ([facility]) sodium level 141 mEq/L 136-145 Sodium Level REZA ([facility]) chloride level 109 mEq/L 98-107 Above high normal Chloride Level REZA ([facility]) anion gap 5 mEq/L 8-16 Below low normal Anion Gap REZA ( [facility]) potassium serum 4.1 mEq/L 3.5-5.1 Potassium Serum [facility] ([facility]) carbon dioxide level 27 mEq/L 21-32 Carbon Dioxide Level [place] ([facility]) calcium level 9.4 mg/dL 8.5-10.1 Calcium Level REZA ( [facility]) ALT/SGPT 143 U/L 12-78 Above high normal ALT/SGPT REZA ([facility]) AST/SGOT 38 U/L 7-37 Above high normal AST/SGOT REZA ([facility]) bilirubin,total 0.2 mg/dL 0.2-1.0 Bilirubin,total ATHE [facility]) alkaline phosphatase 141 U/L 45-117 Above high normal Alkaline Phosphatase REZA ([facility]) albumin 3.2 gm/dL 3.2-5.2 Albumin REZA ([facility]) total protein 6.7 gm/dL 6.4-8.2 Total Protein REZA ( [facility]) albumin/globulin ratio 1.2-2.2 Below low normal Albumin /globulin Ratio REZA ([facility]) ID Date Data Source [id number] 09/23/2020 01:00:00 PM EST REZA ([facility]) Name Value Range Interpretation Code Description Data Joyce rce(s) Supporting Document(s) thyroid stimulating hormone 7.930 uIU/mL 0.358-3.740 Above high no rmal Thyroid Stimulating Hormone REZA ([facility]) ID Date Data Source [id number] 09/23/2020 01:00:00 PM EST [place] ([facility]) Name Value Range Interpretation Code Description Data Joyce rce(s) Supporting Document(s) glucose, fasting 80 mg/dL 70-100 Glucose, Fasting AT [facility]) blood urea nitrogen 6 mg/dL 7-18 Below low normal Blood Urea Nitrogen REZA ([facility]) creatinine for GFR 0.68 mg/dL 0.55-1.30 Creatinine for GF R REZA ([facility]) glomerular filtration rate > 60.0 >58 Glomerula r Filtration Rate REZA ([facility]) chloride level 109 mEq/L 98-107 Above high normal Chloride Level [place] ([facility]) potassium serum 4.1 mEq/L 3.5-5.1 Potassium Serum ATHE NA ([facility]) sodium level 141 mEq/L 136-145 Sodium Level REZA ([facility]) carbon dioxide level 27 mEq/L 21-32 Carbon Dioxide Level REZA ([facility]) AST/SGOT 38 U/L 7-37 Above high normal AST/SGOT REZA ([facility]) calcium level 9.4 mg/dL 8.5-10.1 Calcium Level REZA ( [facility]) anion gap 5 mEq/L 8-16 Below low normal Anion Gap REZA ( [facility]) ALT/SGPT 143 U/L 12-78 Above high normal ALT/SGPT RE[facility] ([facility]) alkaline phosphatase 141 U/L 45-117 Above high normal Alkaline Phosphatase REZA ([facility]) total protein 6.7 gm/dL 6.4-8.2 Total Protein REZA ( [facility]) bilirubin,total 0.2 mg/dL 0.2-1.0 Bilirubin,total ATHE ([facility]) albumin/globulin ratio 1.2-2.2 Below low normal Albumin /globulin Ratio REZA ([facility]) albumin 3.2 gm/dL 3.2-5.2 Albumin REZA ([facility]) ID Date Data Source [id number] 09/23/2020 01:00:00 PM [facility] Name Value Range Interpretation Code Description Data Joyce rce(s) Supporting Document(s) thyroid stimulating hormone 7.930 uIU/mL 0.358-3.740 Above high no rmal Thyroid Stimulating Hormone REZA ([facility]) ID Date Data Source [id number] 09/23/2020 01:00:00 PM EST REZA ([facility]) Name Value Range Interpretation Code Description Data Joyce rce(s) Supporting Document(s) creatinine for GFR 0.68 mg/dL 0.55-1.30 Creatinine for GF R REZA ([facility]) blood urea nitrogen 6 mg/dL 7-18 Below low normal Blood Urea Nitrogen REZA ([facility]) glucose, fasting 80 mg/dL 70-100 Glucose, Fasting AT [facility]) glomerular filtration rate > 60.0 >58 Glomerula r Filtration Rate REZA ([facility]) potassium serum 4.1 mEq/L 3.5-5.1 Potassium Serum ATHE NA ([facility]) sodium level 141 mEq/L 136-145 Sodium Level REZA ([facility]) carbon dioxide level 27 mEq/L 21-32 Carbon Dioxide Level REZA ([facility]) AST/SGOT 38 U/L 7-37 Above high normal AST/SGOT REZA ([facility]) chloride level 109 mEq/L 98-107 Above high normal Chloride Level REZA ([facility]) anion gap 5 mEq/L 8-16 Below low normal Anion Gap REZA ( [facility]) calcium level 9.4 mg/dL 8.5-10.1 Calcium Level REZA ( [facility]) total protein 6.7 gm/dL 6.4-8.2 Total Protein REZA ( [facility]) bilirubin,total 0.2 mg/dL 0.2-1.0 Bilirubin,total ATHE NA ([facility]) ALT/SGPT 143 U/L 12-78 Above high normal ALT/SGPT REZA ([facility]) alkaline phosphatase 141 U/L 45-117 Above high normal Alkaline Phosphatase REZA ([facility]) albumin 3.2 gm/dL 3.2-5.2 Albumin REZA ([facility]) albumin/globulin ratio 1.2-2.2 Below low normal Albumin /globulin Ratio REZA ([facility]) ID Date Data Source [id number] 09/23/2020 01:00:00 PM EST REZA ([facility]) Name Value Range Interpretation Code Description Data Joyce rce(s) Supporting Document(s) thyroid stimulating hormone 7.930 uIU/mL 0.358-3.740 Above high no rmal Thyroid Stimulating Hormone REZA ([facility]) ID Date Data Source [id number] 09/23/2020 01:00:00 PM EST REZA ([facility]) Name Value Range Interpretation Code Description Data Joyce rce(s) Supporting Document(s) glucose, fasting 80 mg/dL 70-100 Glucose, Fasting AT [facility]) blood urea nitrogen 6 mg/dL 7-18 Below low normal Blood Urea Nitrogen REZA ([facility]) creatinine for GFR 0.68 mg/dL 0.55-1.30 Creatinine for GF R REZA ([facility]) glomerular filtration rate > 60.0 >58 Glomerula r Filtration Rate REZA ([facility]) sodium level 141 mEq/L 136-145 Sodium Level REZA ([facility]) potassium serum 4.1 mEq/L 3.5-5.1 Potassium Serum ATHE ([facility]) chloride level 109 mEq/L 98-107 Above high normal Chloride Level REZA ([facility]) anion gap 5 mEq/L 8-16 Below low normal Anion Gap REZA ( [facility]) AST/SGOT 38 U/L 7-37 Above high normal AST/SGOT RE[facility] ([facility]) calcium level 9.4 mg/dL 8.5-10.1 Calcium Level REZA ( [facility]) carbon dioxide level 27 mEq/L 21-32 Carbon Dioxide Level REZA ([facility]) total protein 6.7 gm/dL 6.4-8.2 Total Protein REZA ( [facility]) bilirubin,total 0.2 mg/dL 0.2-1.0 Bilirubin,total ATHE [facility]) ALT/SGPT 143 U/L 12-78 Above high normal ALT/SGPT RE[facility] ([facility]) alkaline phosphatase 141 U/L 45-117 Above high normal Alkaline Phosphatase REZA ([facility]) albumin 3.2 gm/dL 3.2-5.2 Albumin REZA ([facility]) albumin/globulin ratio 1.2-2.2 Below low normal Albumin /globulin Ratio REZA ([facility]) ID Date Data Source [id number] 09/23/2020 01:00:00 PM [facility] Name Value Range Interpretation Code Description Data Joyce rce(s) Supporting Document(s) thyroid stimulating hormone 7.930 uIU/mL 0.358-3.740 Above high no rmal [facility]roid [facility]ulating [facility] ID Date Data Source [id number] 09/23/2020 01:00:00 PM EST REZA ([facility]) Name Value Range Interpretation Code Description Data Joyce rce(s) Supporting Document(s) blood urea nitrogen 6 mg/dL 7-18 Below low normal Blood Urea Nitrogen REZA ([facility]) glucose, fasting 80 mg/dL 70-100 Glucose, Fasting AT [place] ([facility]) potassium serum 4.1 mEq/L 3.5-5.1 Potassium Serum ATHE ([facility]) creatinine for GFR 0.68 mg/dL 0.55-1.30 Creatinine for GF R REZA ([facility]) sodium level 141 mEq/L 136-145 Sodium Level RE[facility] ([facility]) glomerular filtration rate > 60.0 >58 Glomerula r Filtration Rate RE[facility] ([facility]) chloride level 109 mEq/L 98-107 Above high normal Chloride Level RE[facility] ([facility]) calcium level 9.4 mg/dL 8.5-10.1 Calcium Level REZA ( [facility]) carbon dioxide level 27 mEq/L 21-32 Carbon Dioxide Level REZA ([facility]) anion gap 5 mEq/L 8-16 Below low normal Anion Gap REZA ( [facility]) alkaline phosphatase 141 U/L 45-117 Above high normal Alkaline Phosphatase REZA ([facility]) ALT/SGPT 143 U/L 12-78 Above high normal ALT/SGPT RE[facility] ([facility]) AST/SGOT 38 U/L 7-37 Above high normal AST/SGOT RE[facility] ([facility]) bilirubin,total 0.2 mg/dL 0.2-1.0 Bilirubin,total ATHE ([facility]) albumin/globulin ratio 1.2-2.2 Below low normal Albumin /globulin Ratio REZA ([facility]) total protein 6.7 gm/dL 6.4-8.2 Total Protein REZA ( [facility]) albumin 3.2 gm/dL 3.2-5.2 Albumin REZA ([facility]) ID Date Data Source [id number] 09/23/2020 01:00:00 PM EST REZA ([facility]) Name Value Range Interpretation Code Description Data Joyce rce(s) Supporting Document(s) thyroid stimulating hormone 7.930 uIU/mL 0.358-3.740 Above high no rmal Thyroid Stimulating Hormone REZA ([facility]) ID Date Data Source [id number] 09/23/2020 01:00:00 PM EST REZA ([facility]) Name Value Range Interpretation Code Description Data Joyce rce(s) Supporting Document(s) glucose, fasting 80 mg/dL 70-100 Glucose, Fasting AT [place] ([facility]) creatinine for GFR 0.68 mg/dL 0.55-1.30 Creatinine for GF R REZA ([facility]) blood urea nitrogen 6 mg/dL 7-18 Below low normal Blood Urea Nitrogen REZA ([facility]) sodium level 141 mEq/L 136-145 Sodium Level REZA ([facility]) chloride level 109 mEq/L 98-107 Above high normal Chloride Level REZA ([facility]) glomerular filtration rate > 60.0 >58 Glomerula r Filtration Rate REZA ([facility]) potassium serum 4.1 mEq/L 3.5-5.1 Potassium Serum ATHE NA ([facility]) ALT/SGPT 143 U/L 12-78 Above high normal ALT/SGPT REZA ([facility]) anion gap 5 mEq/L 8-16 Below low normal Anion Gap REZA ( [facility]) calcium level 9.4 mg/dL 8.5-10.1 Calcium Level REZA ( [facility]) AST/SGOT 38 U/L 7-37 Above high normal AST/SGOT REZA ([facility]) carbon dioxide level 27 mEq/L 21-32 Carbon Dioxide Level REZA ([facility]) total protein 6.7 gm/dL 6.4-8.2 Total Protein REZA ( [facility]) albumin 3.2 gm/dL 3.2-5.2 Albumin REZA ([facility]) alkaline phosphatase 141 U/L 45-117 Above high normal Alkaline Phosphatase REZA ([facility]) bilirubin,total 0.2 mg/dL 0.2-1.0 Bilirubin,total [facility]HE NA [facility] [facility] albumin/globulin ratio 1.2-2.2 Below low normal Albumin /globulin Ratio REZA ([facility]) ID Date Data Source [id number] 09/17/2020 02:40:38 PM [facility] Name Value Range Interpretation Code Description Data Joyce rce(s) Supporting Document(s) Progress Note [facility] FFNDLx3fJvOVQtIt23/ERVslXHVuk8SyMRveEWe5ZEdsZSZpC1NtKEE4mP9kLEL9ZEzDEwTxZsKhAnB8 lbm [file] ID Date Data Source [id number] 09/16/2020 06:21:[address] PM [facility] CT ABDOMEN PELVIS WITH CONTRAST [id number] AL RESULTInterpreted by:SUZETTE LandersPROCEDURE INFORMATION: Exam: CT [...] DOCUMENT HAS BEEN ELECTRONICALLY SIGNED BY GRISELDA FRANCO MDThis document has been electronically signed by SUZETTE Landers on 09/16/2020 6:21 PM Name Value Range Interpretation Code Description Data Joyce rce(s) Supporting Document(s) ID Date Data Source [id number] 09/12/2020 12:42:36 PM [facility] Name Value Range Interpretation Code Description Data [facility] rce(s) Supporting Document(s) Progress Note [facility] XXZNFd2jBhUQEuGd69/CTWdeJOCgz1EnLKwaMEq0BBnmOBIbT3LmKFY4wS3oBKP8XRzJFbAuGdKkRnJ8 [facility] [file] zUdluZZbxPNuVooLqprPER1xG71zP9uDLF5Wfb01u1W1V7W+respiratory tech+yWO/3Na/9n22Dpul2cDqa8seNMzof [file] fWlJZvb3HDThjS9dk17arZelNXYJ8QkoCaJblXNUewfse1BRF2UqXfpZnG5zkgvMmXFRRtIO7D+O/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 maker [file] ICAgICAgICAgICAgICAgICAgICAgICAgICAgICAgICAgICAgICAgICAgICAgICAgICAgICAgICAgICAg ICAgICAgICAgICAgICAgICAgICAgICAgICAgICAgIC AgICAgICANCiAgICAgICAgICAgICAgICAgICAgICAgICAgICAgICAgICAgICAgICAgICAgICAgICAgIC AgICAgICAgICAgICAgICAgICAgICAgICAgICAgICAgICAgICAgICAgICAgICAgICANCiAgICAgICAgIC AgICAgICAgICAgICAgICAgICAgICAgICAgICAgICAg ICAgICAgICAgICAgICAgICAgICAgICAgICAgICAgICAgICAgICAgICAgICAgICAgICAgICAgICAgICAN CiAgICAgICAgICAgICAgICAgICAgICAgICAgICAgICAgICAgICAgICAgICAgICAgICAgICAgICAgICAg ICAgICAgICAgICAgICAgICAgICAgICAgICAgICAgIC AgICAgICAgICANCiAgICAgICAgICAgICAgICAgICAgICAgICAgICAgICAgICAgICAgICAgICAgICAgIC AgICAgICAgICAgICAgICAgICAgICAgICAgICAgICAgICAgICAgICAgICAgICAgICAgICANCiAgICAgIC AgICAgICAgICAgICAgICAgICAgICAgICAgICAgICAg ICAgICAgICAgICAgICAgICAgICAgICAgICAgICAgICAgICAgICAgICAgICAgICAgICAgICAgICAgICAg ICANCiAgICAgICAgICAgICAgICAgICAgICAgICAgICAgICAgICAgICAgICAgICAgICAgICAgICAgICAg ICAgICAgICAgICAgICAgICAgICAgICAgICAgICAgIC AgICAgICAgICAgICANCiAgICAgICAgICAgICAgICAgICAgICAgICAgICAgICAgICAgICAgICAgICAgIC AgICAgICAgICAgICAgICAgICAgICAgICAgICAgICAgICAgICAgICAgICAgICAgICAgICAgICANCiAgIC AgICAgICAgICAgICAgICAgICAgICAgICAgICAgICAg ICAgICAgICAgICAgICAgICAgICAgICAgICAgICAgICAgICAgICAgICAgICAgICAgICAgICAgICAgICAg ICAgICANCiAgICAgICAgICAgICAgICAgICAgICAgICAgICAgICAgICAgICAgICAgICAgICAgICAgICAg ICAgICAgICAgICAgICAgICAgICAgICAgICAgICAgIC AgICAgICAgICAgICAgICANCjw/hVCoV0ngpTVmsjS8P5usSc7QWe1XFF8iw8BpCFUgOLmdksTlDdoUWh RgPCKjZycVMlw7KMhoJX8HrOMsK7ZhK6YiGWhcSF7UCQTlOKRtjQQpREWpAWIyVqW0NTLgBZxiEL2FeD RzIFsgNSAwIFIgNyAwIFIgOSAwIFIgMTEgMCBSIDEz RTNjOpMdMHMePIEbBRmiIDUOONL7NVIhFkZnINqgGJ6Xm4MdoSY9TIr+Lr4XEV5vs4LzTJw8QRZrDB8u mg5CUBlVHpBsE8XdseA2TMS4XFAbDs9RSYJzYFRhyDM0YDMlUQWBKjTjL3ZujB07TRRAZi1+DQplbmRv IsuDNwU1DRZjb3SeHQb4HS5RIUChZIq9dYLxRZLpW4 Mhe5BnAx06JBBkObigXsYfsu7nYSFmFDSqKJjiBEMcWFInGi3oBcDgGvRkNNt7GIIzWS1sSGojTK4TMA Y0EQxzAWTkPTCgZ8xACoIuYHTxRdXbwPlnKT4MTnYnP4FvfdEosEW8KHUiYBXGHt2+DQplbmRvYmoNCj U9QBDew4FmWBa6KC1VMMSbOKmeGN5HIJXtzP9bOMoj ZR0LCsX3BqRaHGPJXeQcC94sdRLuCIt2W1BxOiNtEBMwWyvoNBTkYFuiKnWcELKgScFcZXelQQ8+ID4+ JLecNN2BEUgzzxNbSEEiXe8QESCdLNVbYD0bQKSfYEBpD7J7jYzfGGOFNpXeQ2ndxrmfME7gFVRrP290 xKuyocEiCFZ2UFBhAw2RAGEeODD9OJNhcQPtMHLkYH BJLIagPP7OwCMlFNK2yS0nIDztBFXdNYWrU9cHHeFrsHefRA30wGdjjiGivMPqLMy+Ej4YBF3it3NrNU r0wbQiBEwaGJH2SYpuGMIwYPSoRLEcLEA8AVF8HIFJNtXgYITtDBTaVOqxQFUrPZHfli6LNYTzLTN8Nl zsPDDyQHUuCTRvUAgkIJJdQOu8LBk6PYGrOPAaMV6T QzJdSABfMEZhIPpfHBWgQYWhiv8GDSUoCGGgCYvcBxLjXFFtBJHpHEffRHSvGFD7KPBzJWDeWUCtPA3V FvJpTRNkCTGlHBSzPOTzZKTwos1PZJLqNXIvAVUwDFWyTMLyPFJyLRomZUPwSHYnCbxhXEJcIUKfHV8C UqPxTPIhUGS1JRZfMJZpBRBgrk3SQKTpTALlAKj3FT LzHJJwQWVeYPszWMOiBUQ2KYL7RVTeYIRkPC1HAaLdBBUrAQb4JTcaRMGaRRKbdt8WXXFdIFSwAGj9GT KmSQDoCDDrWVjcULSoINAcMSWnETNmYIClLA5LJdUlKSTmMzVhMMtrGXLoMBVeyp9ADOHgEDAgBoA1QI XoZBNdWDRcOEgmMNXhVWU4BbC5OKAqOSHqGL7GGoQp TOOdYiEvLVEuZRToCEZbmr3APZCrZJDeAGO9RDBmCKPiELLtOWidZIWeJTTvXQT4RGQqFVKpNZ7GWrIz KVYmTxA0OUBoLHDaFKLsvt1NDSBzIOYdKfkdCLThGFJqOCOaILhzBRSiHWAlXoj2OTVfCBLiOU5JWzFj HJVaDsHiJBCpMYHfSCOprm7QVVOfAGEdMZL6OTBxGW NxJXRlPUddWMIvQEP2SkW6BTAqVBApDZ5TBwUmLXTjTDD3BRVvTRHbWDNdzu7RIALxRDH0FoG6HpEmDB SwUJIsQVlpHHXaBZF9RLVbBBFuCPIiPE3IHuMyEOZiPQB8EFggRVPjNEYrhe4KJQMlXXU7FzX3ZnDwKA IjGVFkFBamAOHiCZJ3HgcvWQGpYWZoTX2JXeBpGPRd IMp0JWZkCKOoTPNegj6CNTYfSLD8YRX9OLObZLOjQVInTHyrKJHvLOx4UkS4LKZdIGRkDL1KJpSlZEBy UwI4EmThWTFbDJBmcd4BAFRkPPS8SkH2DkVgEFDwUWMyQNamZCUfLBl9LVu3GYOzXFGaJB7AIjWyTRKk Gtu1ZQAuMTLzCKHtas5TQEFgZRH5CbNoLGEfLWDyXZ DoOZtiMRWkEUg8VOV1VXEdODMgCG2LSeIqNFBgEzxaDBcuNAGmVNZofp7JOCDaARD1KMk3YaGcUFCnNU KcYNokOSGxVSd6JDXdSZOfWXQuEW5BMxLjZERvIyk0MeUeIOPoAHNexs9YpTNnyMrgko3HTCcPJo3YeW zaQKR8KIouGg9fpAL5XvBnBQHPZk4TyzYqQZEaXAVA CWsmPDMbFIyyVoUvZhZzV1K1HDIcJeB2LEVfUeIrLzS3EFHfKNSzFbG9TDUfICU8WRM0IBVwWPXuBok7 BuGbY7ClPhGnTWIaCxV+LZ6bBYj+Wy8Zu8InndA1kqWeXCa5JIShSM8YXVSWA3RZOl== ID Date Data Source [id number] 09/09/2020 05:32:00 PM [facility] Name Value Range Interpretation Code Description Data Joyce rce(s) Supporting Document(s) Progress Note [facility] SZRCQw0jOrXNGqQu53/QLQysAIHyf5QlHJwiCWb4ZQphLPEoN7AhBAF5iT6fBML7MQrBQhGnMyVxGpNw lbm [file] YNCg== ID Date Data Source [id number] 09/06/2020 10:07:11 PM [facility] Name Value Range Interpretation Code Description Data Joyce rce(s) Supporting Document(s) Progress Note [facility] NBGIPx3jXoPVGfMc07/ODMtjSWRiq3UhADesZWd3QWceCHMlW6AeMLZ1tE0hDNC1QShMQyAbCnGoDWF6 lbm [file] EkCViobBONiqtJs6uceFhvLI6aelXAJtNoK7NWqF2H//qK7XrnTXdxHXO3nlfdM+yF2LlMY+Ruma/a8rCU PIIMlCpfDGstihA6JMqbGXxSiW4PUEH1PJvmotkECaEJfrMUyPtdONLrFuf1hBOmEM2+htINHJsJmOa1 GROUP MARKETING [file] ICAgICAgICAgICAgICAgICAgICAgICAgICAgICAgIC AgICAgICAgICAgICAgICAgICAgICAgICAgICAgICAgICAgICAgICAgICANCiAgICAgICAgICAgICAgIC AgICAgICAgICAgICAgICAgICAgICAgICAgICAgICAgICAgICAgICAgICAgICAgICAgICAgICAgICAgIC AgICAgICAgICAgICAgICAgICAgICAgICANCiAgICAg ICAgICAgICAgICAgICAgICAgICAgICAgICAgICAgICAgICAgICAgICAgICAgICAgICAgICAgICAgICAg ICAgICAgICAgICAgICAgICAgICAgICAgICAgICAgICAgICANCiAgICAgICAgICAgICAgICAgICAgICAg ICAgICAgICAgICAgICAgICAgICAgICAgICAgICAgIC AgICAgICAgICAgICAgICAgICAgICAgICAgICAgICAgICAgICAgICAgICAgICANCiAgICAgICAgICAgIC AgICAgICAgICAgICAgICAgICAgICAgICAgICAgICAgICAgICAgICAgICAgICAgICAgICAgICAgICAgIC AgICAgICAgICAgICAgICAgICAgICAgICAgICANCiAg ICAgICAgICAgICAgICAgICAgICAgICAgICAgICAgICAgICAgICAgICAgICAgICAgICAgICAgICAgICAg ICAgICAgICAgICAgICAgICAgICAgICAgICAgICAgICAgICAgICANCiAgICAgICAgICAgICAgICAgICAg ICAgICAgICAgICAgICAgICAgICAgICAgICAgICAgIC AgICAgICAgICAgICAgICAgICAgICAgICAgICAgICAgICAgICAgICAgICAgICAgICANCiAgICAgICAgIC AgICAgICAgICAgICAgICAgICAgICAgICAgICAgICAgICAgICAgICAgICAgICAgICAgICAgICAgICAgIC AgICAgICAgICAgICAgICAgICAgICAgICAgICAgICAN CiAgICAgICAgICAgICAgICAgICAgICAgICAgICAgICAgICAgICAgICAgICAgICAgICAgICAgICAgICAg ICAgICAgICAgICAgICAgICAgICAgICAgICAgICAgICAgICAgICAgICANCiAgICAgICAgICAgICAgICAg ICAgICAgICAgICAgICAgICAgICAgICAgICAgICAgIC AgICAgICAgICAgICAgICAgICAgICAgICAgICAgICAgICAgICAgICAgICAgICAgICAgICANCjw/eHBhY2 htxLYfvlR3I0ehRh0JMi6SHG9km7CnPSJqLEwvozHmHwuAExJrXBVmClrXWoc5TXdrHE2SoCZxI3NlZ2 KzVFgyNG7RUJZsBUDgqPUfWYAhCLIzAnO6XUGnCHra FW7DqWEeKXfeUTTdJZKsIWKuDZJuGUTzUSCYKFIpICZsWxZoCGSnDHVlWOFtJLVZKLL1KVVbDeReGNWi XKMjBjRpBMWXYWB2JGXbOmPoDePzPPJsPcprKTEXDE9TByOoF1PerH08LGLyYRs+Be8BUB7rg5DaSDe6 TDMuBS3dfr0ROCwWYiRgN4TqvvJ7TRE2DXFuYn6HTH SgYIBibZP0NvPrQPADBjOaS1PfbV96VNGLNu9+THwmqxVvGfjBKeE8AUFgx2EfJAt7SF1HHOZlFCi7vZ NhDMFdI9Syy5BtQj35WNAwQymbTLYfxISaEVTPOC3wqnBnkmvfGwSzXISlLO3mZx0rWKMmBAI9HjX5QJ HEKM6TPVPbCIDaoNRxECWlNNDMSD5YFJysOIW6XNZf cdYpqHWdYMsnKD0FEIKzanRsCGFyHSLFZMh+Pz5TYM4nj8VkSOy8SAFrd3JbBUd2NC3IFAYaGCwbJPAb TS6wp1UwZ3A1XzI6oEJfU7qlhlfcG9OdzgMwbsUpIEJfNYHxVH0FZF2LFB1RNLXvMSmiUN2WQAH3DYz2 McE2EOBpEGEzNSM1HY6hELbfMW1MJOv3J4DtF7MIMW QiASULSNExgIY2HTOSEh7UH4WSUrwSCDCDJs9GLgCvJ7KZR4lCS61DPA2OADW+PiANCj4+DQplbmRvYm pKXpQ1PNVos8ZqYQp5TN2JPFCjKYokIS8WXTJceJ9bBDseRC9DJqH1KkQoKFTYVcPcB89sdQJcJUe5X0 VtYmVkZGVkRmlsZXMgPDwvTmFtZXMgWyBdDQogID4+ ID4+DJwvGL2AFKrpadEjQLCaUo0ZUYFoZKVgOI3gKKIpNYOyV5H1uUdqSWTDYpUgQ9trrasaCZ8eLROk R280nJtgtyQnHTM1STKkAn6FFUXbTNV3GNBqqRSwRGHhFIDLOUweDK2YhRQhORE1lX8hRCubXOIvNKXg Q9hTNkLbdHwmBP50pSdpvqUgrIPgEHm+Wp3QOQ3wu9 CiFIs0zpGvYSorHNG8CVgeENWmEWPqYPLrZNA7AIG6NMKVFwCwBKLlDAHxQYbeXGVzPDEmcu2LSPSaXZ S9HIJ7JnXsWYDtHRWbGSvlPKMuNMW6IUI3FLKkSXZbEB3YRtIiQZSwFBUyHYliDQNpJHNjzb6CMVNyYI DcSnBxRSTlIJHfSMHrMFsgTCIyZJI7JlO2SKCwGDIn MG1RBzIbMLEiBNR4RuFbQMNsFIGpcv5UFUQuXUQaYxIzFeKpIKEpHUOrBWphRMOfWHA7PxWvVCRfLJTs TH7DNwMeDBGtLQKlGtNyCMPbALXsvq9SMVKqUUVzJEI2GjZyOHPnMGGkQVtgFOWgKQO5MHa8EFLiUDUi XL3KNiLeEBDxUVT6OHWaJSAnCMOdur9KZKObBQJiAu q6IBIoSIFsNCGtUQhiRDZvWLF3DGk1SSAxTPAoLJ6YEbLnVWTyWcAdTjkfAEUxWGElwf1BVVApNCUoCR D6ITEnIQItDFCgGSokOWBgOIFlFea7AKObYKPlRE6EIcMpPYQqGfF2EBRrOSQjHLAiir7FFDEhWRYwVg niZNRxMEKrUTLiQKbzBECiYCZ3FAE6JDPgOENwRT9D WmCeLKXiXftwUlNyHMJiGUIdlu4ZABHnIFYfILK9ERBfUSFiAROiPFsoKWRaRIFyFaP2SRMvDNZoRZ7N YuKkIBWiJwZ5ZBRwCJLhWHQgwu6BSRZlSJPiDjDjVEUrTWGgDXGzEAnuXGXqTYV5VPF3DCAwRZJeDW9T OoGeRGOcYce1SFMjXRIuGOCycg7BRFSjGOAeWOj2Bx MrVCRwZGNnBTsoIFHcFHF4WnTvIOImYUUrII1ZHpWeDPXtKsr2FUuoXWKdSUZiwj2MYMGiCRO7ESHvWc LpZUEnOLYhVQmzSEZaJTZpNWvqJAJdJZXzMY0VRfSpXQVuCOSrKECeLMFxDNTbph0VMLTzVRQ4FQF2GD JqLZPfEIFsNBgtAFKxOKNiELQjLZBzWAHmKK8GOsKl PLEbZJEjRrNnSJVkPPMbrn1SBWTgRYW5FuQ0BHZgAFLcRFLxAFghFGBlIKOyQij6MFTdXYEvUM0OIdKg CREvFPM4DRXaJOKzZZAnko2LCVGeIDC5BJx9TUKwWUDbXLBjBFknZNPrHMQ2ZLkvHCQnKCFtGH3ZViWt TMKvFXBjUTCrGZUnHHZpqi6VTJMiWCM5WPE9ASHgDV QcDKLlDLhzNVXuFOT7WVfeIYOoPUJpYM5EEjAlILQeAFwiPLPqLVWiUTIkdf9ZRXOmIAE5VcY5NQTvAT HxOILpUVe8fvTrpBRrROq9VQ5VR6WbcwRcKEzNZa9Mb108CSY5IASvTw5RZ4nbBs0zQXGzENYNXp6WJY z4KGJ4CJC2DQP1GHvdR9Y9WIQqMVU3SMBzGaUkNzUc NWI+VTngJMalCSfgZJewXKOrIdRzL5HyQqZ3HgIvZXHuL7M8Ke6jXHXQRo2+DQpzdGFydHhyZWYNCjU3 EjQ4HYvfESCQSw2D ID Date Data Source [id number] 09/04/2020 10:02:20 AM EST [facility] Name Value Range Interpretation Code Description Data Joyce e(s) Supporting Document(s) Leukocytes [#/volume] in Blood by Automated count 8.2 10*3/uL 4-10 [facility] Erythrocytes [#/volume] in Blood by Automated count 4.31 10*6/uL 4.1- 5.3 [facility] Hemoglobin [Mass/volume] in Blood 13.7 g/dL 11.5-15.5 [facility] Hematocrit [Volume Fraction] of Blood by Automated count 40.7 % 3 6-45 [facility] Erythrocyte mean corpuscular volume [Entitic volume] by Auto mated count 94.6 fL 80-96 [facility] Erythrocyte mean corpuscular hemoglobin [Entitic mass] by Automated count 31.9 pg 27-33 [facility] Erythrocyte mean corpuscular hemoglobin concentration [Mass/volume] by Automated count 33.7 g/dL 32[facility]0-36.[facility] width [Ratio] by Automated count 14.7 % 11.5-14.5 H [facility] Platelets [#/volume] in Blood by Automated count 253 10*3/uL 150-400 [facility] Differential cell count method - Blood [facility] Neutrophils/100 leukocytes in Blood by Automated count 68 % [facility] Lymphocytes/100 leukocytes in Blood by Automated count 22 % [facility] Monocytes/100 leukocytes in Blood by Automated count 8 % [facility] Eosinophils/100 leukocytes in Blood by Automated count 1 % [facility] Basophils/100 leukocytes in Blood by Automated count 1 % [facility] Neutrophils [#/volume] in Blood by Automated count 5.56 10*3/uL 1.8-7 .0 [facility] Lymphocytes [#/volume] in Blood by Automated count 1.80 10*3/uL 1.2-4 .0 [facility] Monocytes [#/volume] in Blood by Automated count 0.65 10*3/uL 0-0.8 [facility] Eosinophils [#/volume] in Blood by Automated count 0.10 10*3/uL 0-0.5 [facility] Basophils [#/volume] in Blood by Automated count 0.08 10*3/uL 0-0.2 [facility] Nucleated erythrocytes/100 leukocytes [Ratio] in Blood by Automated count 0 /100{WBCs} 0-0 [facility] ID Date Data Source [id number] 09/04/2020 10:40:40 AM [facility] Name Value Range Interpretation Code Description Data Joyce rce(s) Supporting Document(s) Albumin [Mass/volume] in Serum or Plasma by Bromocresol green (BCG) dye binding method 3.5 g/dL 3.5-5.2 [facility] Bil[facility].total [Mass/volume] in Serum or Plasma 0.2 mg/dL <1.2 [facility] Calcium [Mass/volume] in Serum or Plasma 9.2 mg/dL 8.6-10.0 [facility] Chloride [Moles/volume] in Serum or Plasma 106 mmol/L 98-107 [facility] Creatinine [Mass/volume] in Serum or Plasma 0.69 mg/dL 0.50-0.90 [facility] Glucose [Mass/volume] in Serum or Plasma 92 mg/dL 70-140 [facility] Alkaline phosphatase [Enzymatic activity/volume] in Serum or Plasma 103 U/L 35-104 [facility] Potassium [Moles/volume] in Serum or Plasma 3.5 mmol/L 3.4-5.1 [facility] Hemolyzed Protein [Mass/volume] in Serum or Plasma 6.5 g/dL 6.4-8.3 [facility] Sodium [Moles/volume] in Serum or Plasma 139 mmol/L 136-145 [facility] Aspartate aminotransferase [Enzymatic activity/volume] in Serum or Plasma 21 U/L <32 [facility] Urea nitrogen [Mass/volume] in Serum or Plasma 5 mg/dL 6-20 L [facility] Osmolality of Serum or Plasma by calculation 284 mosm/kg 275-300 [facility] Creatinine/Urea nitrogen [Mass Ratio] in Serum or Plasma 7 [facility] Bicarbonate [Moles/volume] in Serum 22 mmol/L 22-29 [facility] Alanine aminotransferase [Enzymatic activity/volume] in Seru m or Plasma 15 U/L <33 [facility] Anion gap 3 in Serum or Plasma 11 mmol/L 8-15 [facility] Glomerular filtration rate/1.73 sq M pre dicted among non-blacks [Volume Rate/Area] in Serum or Plasma by Creatinine-based formula (MDRD) >6 0 [facility] Glomerular filtration rate/1.73 sq M pre dicted among blacks [Volume Rate/Area] in Serum or Plasma by Creatinine-based formula (MDRD) >60 [facility] ID Date Data Source [id number] 08/29/2020 11:08:40 AM [facility] Name Value Range Interpretation Code Description Data Joyce rce(s) Supporting Document(s) Progress Note [facility] FYEDGh7cGpAUZnZt67/LCYrwVSDpt5YqKDvpZIx5KKleJMBwT4XnKEU3tK7fTVQ1RXcKBpKgVdOuOPIt lbm [file] [id number]ARyXoDJ2JTBm= ID Date Data Source [id number] 08/23/2020 10:02:06 AM [facility] Name Value Range Interpretation Code Description Data Joyce rce(s) Supporting Document(s) Leukocytes [#/volume] in Blood by Automated count 7.5 10*3/uL 4-10 [facility] Erythrocytes [#/volume] in Blood by Automated count 4.40 10*6/uL 4.1- 5.3 [facility] Hemoglobin [Mass/volume] in Blood 13.9 g/dL 11.5-15.5 [facility] Hematocrit [Volume Fraction] of Blood by Automated count 42.0 % 3 6-45 [facility] Erythrocyte mean corpuscular volume [Entitic volume] by Auto mated count 95.3 fL 80-96 [facility] Erythrocyte mean corpuscular hemoglobin [Entitic mass] by Automated count 31.5 pg 27-33 [facility] Erythrocyte mean corpuscular hemoglobin concentration [Mass/volume] by Automated count 33.1 g/dL 32.0-36.0 [facility] distribution width [Ratio] by Automated count 14.5 % 11.5-14.5 [facility] Platelets [#/volume] in Blood by Automated count 301 10*3/uL 150-400 [facility] Differential cell count method - Blood [facility] Neutrophils/100 leukocytes in Blood by Automated count 76 % [facility] Lymphocytes/100 leukocytes in Blood by Automated count 16 % [facility] Monocytes/100 leukocytes in Blood by Automated count 7 % [facility] Eosinophils/100 leukocytes in Blood by Automated count 1 % [facility] Basophils/100 leukocytes in Blood by Automated count 0 % [facility] Neutrophils [#/volume] in Blood by Automated count 5.67 10*3/uL 1.8-7 .0 [facility] Lymphocytes [#/volume] in Blood by Automated count 1.21 10*3/uL 1.2-4 .0 [facility] Monocytes [#/volume] in Blood by Automated count 0.54 10*3/uL 0-0.8 [facility] Eosinophils [#/volume] in Blood by Automated count 0.10 10*3/uL 0-0.5 [facility] Basophils [#/volume] in Blood by Automated count 0.02 10*3/uL 0-0.2 [facility] Nucleated erythrocytes/100 leukocytes [Ratio] in Blood by Automated count 0 /100{WBCs} 0-0 [facility] ID Date Data Source [id number] 08/23/2020 10:22:26 AM EST [facility] Name Value Range Interpretation Code Description Data Joyce rce(s) Supporting Document(s) Albumin [Mass/volume] in Serum or Plasma by Bromocresol green (BCG) dye binding method 3.6 g/dL 3.5-5.2 [facility] Bil[facility].total [Mass/volume] in Serum or Plasma 0.2 mg/dL <1.2 [facility] Calcium [Mass/volume] in Serum or Plasma 9.3 mg/dL 8.6-10.0 [facility] Chloride [Moles/volume] in Serum or Plasma 107 mmol/L 98-107 [facility] Creatinine [Mass/volume] in Serum or Plasma 0.76 mg/dL 0.50-0.90 [facility] Glucose [Mass/volume] in Serum or Plasma 116 mg/dL 70-140 [facility] Alkaline phosphatase [Enzymatic activity/volume] in Serum or Plasma 117 U/L 35-104 H [facility] Potassium [Moles/volume] in Serum or Plasma 3.6 mmol/L 3.4-5.1 [facility] Protein [Mass/volume] in Serum or Plasma 6.8 g/dL 6.4-8.3 [facility] Sodium [Moles/volume] in Serum or Plasma 138 mmol/L 136-145 [facility] Aspartate aminotransferase [Enzymatic activity/volume] in Serum or Plasma 23 U/L <32 [facility] Urea nitrogen [Mass/volume] in Serum or Plasma 10 mg/dL 6-20 [facility] Osmolality of Serum or Plasma by calculation 286 mosm/kg 275-300 [facility] Creatinine/Urea nitrogen [Mass Ratio] in Serum or Plasma 13 [facility] Bicarbonate [Moles/volume] in Serum 23 mmol/L 22-29 [facility] Alanine aminotransferase [Enzymatic activity/volume] in Seru m or Plasma 32 U/L <33 [facility] Anion gap 3 in Serum or Plasma 8 mmol/L 8-15 [facility] Glomerular filtration rate/1.73 sq M pre dicted among non-blacks [Volume Rate/Area] in Serum or Plasma by Creatinine-based formula (MDRD) >6 0 [facility] Glomerular filtration rate/1.73 sq M pre dicted among blacks [Volume Rate/Area] in Serum or Plasma by Creatinine-based formula (MDRD) >60 [facility] ID Date Data Source [id number] 08/15/2020 02:29:50 PM EST [facility] Name Value Range Interpretation Code Description Data Joyce rce(s) Supporting Document(s) Leukocytes [#/volume] in Blood by Automated count 6.8 10*3/uL 4-10 [facility] Erythrocytes [#/volume] in Blood by Automated count 4.29 10*6/uL 4.1- 5.3 [facility] Hemoglobin [Mass/volume] in Blood 13.7 g/dL 11.5-15.5 [facility] Hematocrit [Volume Fraction] of Blood by Automated count 41.4 % 3 6-45 [facility] Erythrocyte mean corpuscular volume [Entitic volume] by Auto mated count 96.4 fL 80-96 H [facility] Erythrocyte mean corpuscular hemoglobin [Entitic mass] by Automated count 32.0 pg 27-33 [facility] Erythrocyte mean corpuscular hemoglobin concentration [Mass/volume] [facility] 33.2 g/[facility] width [Ratio] by Automated count 14.5 % 11.5-14.5 [facility] Platelets [#/volume] in Blood by Automated count 295 10*3/uL 150-400 [facility] Differential cell count method - Blood [facility] Neutrophils/100 leukocytes in Blood by Automated count 67 % [facility] Lymphocytes/100 leukocytes in Blood by Automated count 24 % [facility] Monocytes/100 leukocytes in Blood by Automated count 6 % [facility] Eosinophils/100 leukocytes in Blood by Automated count 2 % [facility] Basophils/100 leukocytes in Blood by Automated count 1 % [facility] Neutrophils [#/volume] in Blood by Automated count 4.60 10*3/uL 1.8-7 .0 [facility] Lymphocytes [#/volume] in Blood by Automated count 1.60 10*3/uL 1.2-4 .0 [facility] Monocytes [#/volume] in Blood by Automated count 0.41 10*3/uL 0-0.8 [facility] Eosinophils [#/volume] in Blood by Automated count 0.11 10*3/uL 0-0.5 [facility] Basophils [#/volume] in Blood by Automated count 0.04 10*3/uL 0-0.2 [facility] Nucleated erythrocytes/100 leukocytes [Ratio] in Blood by Automated count 0 /100{WBCs} 0-0 [facility] ID Date Data Source [id number] 08/15/2020 03:12:08 PM EST [facility] Name Value Range Interpretation Code Description Data Joyce rce(s) Supporting Document(s) Albumin [Mass/volume] in Serum or Plasma by Bromocresol green (BCG) dye binding method 3.7 g/dL 3.5-5.2 [facility] Bil[facility].total [Mass/volume] in Serum or Plasma 0.2 mg/dL <1.2 [facility] Calcium [Mass/volume] in Serum or Plasma 9.4 mg/dL 8.6-10.0 [facility] Chloride [Moles/volume] in Serum or Plasma 103 mmol/L 98-107 [facility] Creatinine [Mass/volume] in Serum or Plasma 0.68 mg/dL 0.50-0.90 [facility] Glucose [Mass/volume] in Serum or Plasma 92 mg/dL 70-140 [facility] Alkaline phosphatase [Enzymatic activity/volume] in Serum or Plasma 179 U/L 35-104 H [facility] Potassium [Moles/volume] in Serum or Plasma 3.7 mmol/L 3.4-5.1 [facility] Protein [Mass/volume] in Serum or Plasma 7.2 g/dL 6.4-8.3 [facility] Sodium [Moles/volume] in Serum or Plasma 133 mmol/L 136-145 L [facility] Aspartate aminotransferase [Enzymatic activity/volume] in Serum or Plasma 133 U/L <32 H [facility] Urea nitrogen [Mass/volume] in Serum or Plasma 6 mg/dL 6-20 [facility] Osmolality of Serum or Plasma by calculation 273 mosm/kg 275-300 L [facility] Creatinine/Urea nitrogen [Mass Ratio] in Serum or Plasma 9 [facility] Bicarbonate [Moles/volume] in Serum 25 mmol/L 22-29 [facility] Alanine aminotransferase [Enzymatic activity/volume] in Seru m or Plasma 266 U/L <33 H [facility] Anion gap 3 in Serum or Plasma 5 mmol/L 8-15 L [facility] Glomerular filtration rate/1.73 sq M pre dicted among non-blacks [Volume Rate/Area] in Serum or Plasma by Creatinine-based formula (MDRD) >6 0 [facility] Glomerular filtration rate/1.73 sq M pre dicted among blacks [Volume Rate/Area] in Serum or Plasma by Creatinine-based formula (MDRD) >60 [facility] ID Date Data Source [id number] 08/13/2020 11:58:09 AM [facility] Name Value Range Interpretation Code Description Data Joyce rce(s) Supporting Document(s) Progress Note [facility] [id number] LaYwxSQlDaRMPyBmwWCrTbEFgwSrwisTByOA8MxAO4GXAdV12dHLYkSRLrL5XcDAHjNmV+Ok4ZDJGciA RiBE4JFmnK2F3af6wONw0mvN/WMuQA4LiFo6h+ikDW18YXD+O4uSsuLdMLxPxwlbMIoMLf/N+Q0YWelm u4DqAmPqD71WWKpyuhL/tnmW0sQBR++6/YiwIppSj/ RT6CkNtAG/KWP1tATO8406v/okngAU/ACcUHLB9pfruEU3FlZKQn1EwJH0VluXpYOhpICQrUk71+Sayra/ mwaAM6Gag68y3k834CylwyBl87NZ7W/0+KATHIE/iudRcBKakJz8ArdgseicIU3lQzD8CJXjhIuZdGoyH4p [file] Jp0XUlA6ACM7rNVwYp0WJPN3USOEKvYsOF4VUAi= ID Date Data Source [id number] 08/08/2020 09:55:48 AM [facility] Name Value Range Interpretation Code Description Data Joyce rce(s) Supporting Document(s) Leukocytes [#/volume] in Blood by Automated count 9.2 10*3/uL 4-10 [facility] Erythrocytes [#/volume] in Blood by Automated count 4.24 10*6/uL 4.1- 5.3 [facility] Hemoglobin [Mass/volume] in Blood 13.9 g/dL 11.5-15.5 [facility] Hematocrit [Volume Fraction] of Blood by Automated count 41.2 % 3 6-45 [facility] Erythrocyte mean corpuscular volume [Entitic volume] by Auto mated count 97.1 fL 80-96 H [facility] Erythrocyte mean corpuscular hemoglobin [Entitic mass] by Automated count 32.8 pg 27-33 [facility] Erythrocyte mean corpuscular hemoglobin concentration [Mass/volume] by Automated count 33.8 g/dL [facility].0-[facility] width [Ratio] by Automated count 14.1 % 11.5-14.5 [facility] Platelets [#/volume] in Blood by Automated count 270 10*3/uL 150-400 [facility] Differential cell count method - Blood [facility] Neutrophils/100 leukocytes in Blood by Automated count 72 % [facility] Lymphocytes/100 leukocytes in Blood by Automated count 18 % [facility] Monocytes/100 leukocytes in Blood by Automated count 8 % [facility] Eosinophils/100 leukocytes in Blood by Automated count 1 % [facility] Basophils/100 leukocytes in Blood by Automated count 1 % [facility] Neutrophils [#/volume] in Blood by Automated count 6.67 10*3/uL 1.8-7 .0 [facility] Lymphocytes [#/volume] in Blood by Automated count 1.62 10*3/uL 1.2-4 .0 [facility] Monocytes [#/volume] in Blood by Automated count 0.71 10*3/uL 0-0.8 [facility] Eosinophils [#/volume] in Blood by Automated count 0.10 10*3/uL 0-0.5 [facility] Basophils [#/volume] in Blood by Automated count 0.12 10*3/uL 0-0.2 [facility] Nucleated erythrocytes/100 leukocytes [Ratio] in Blood by Automated count 0 /100{WBCs} 0-0 [facility] ID Date Data Source [id number] 08/08/2020 10:21:22 AM EST [facility] Name Value Range Interpretation Code Description Data Joyce rce(s) Supporting Document(s) Albumin [Mass/volume] in Serum or Plasma by Bromocresol green (BCG) dye binding method 3.8 g/dL 3.5-5.2 [facility] Bil[facility].total [Mass/volume] in Serum or Plasma <1.2 [facility] Calcium [Mass/volume] in Serum or Plasma 9.7 mg/dL 8.6-10.0 [facility] Chloride [Moles/volume] in Serum or Plasma 105 mmol/L 98-107 [facility] Creatinine [Mass/volume] in Serum or Plasma 0.68 mg/dL 0.50-0.90 [facility] Glucose [Mass/volume] in Serum or Plasma 96 mg/dL 70-140 [facility] Alkaline phosphatase [Enzymatic activity/volume] in Serum or Plasma 113 U/L 35-104 H [facility] Potassium [Moles/volume] in Serum or Plasma 3.8 mmol/L 3.4-5.1 [facility] Protein [Mass/volume] in Serum or Plasma 7.3 g/dL 6.4-8.3 [facility] Sodium [Moles/volume] in Serum or Plasma 140 mmol/L 136-145 [facility] Aspartate aminotransferase [Enzymatic activity/volume] in Serum or Plasma 48 U/L <32 H [facility] Urea nitrogen [Mass/volume] in Serum or Plasma 6 mg/dL 6-20 [facility] Osmolality of Serum or Plasma by calculation 287 mosm/kg 275-300 [facility] Creatinine/Urea nitrogen [Mass Ratio] in Serum or Plasma 9 [facility] Bicarbonate [Moles/volume] in Serum 23 mmol/L 22-29 [facility] Alanine aminotransferase [Enzymatic activity/volume] in Seru m or Plasma 52 U/L <33 H [facility] Anion gap 3 in Serum or Plasma 12 mmol/L 8-15 [facility] Glomerular filtration rate/1.73 sq M pre dicted among non-blacks [Volume Rate/Area] in Serum or Plasma by Creatinine-based formula (MDRD) >6 0 [facility] Glomerular filtration rate/1.73 sq M pre dicted among blacks [Volume Rate/Area] in Serum or Plasma by Creatinine-based formula (MDRD) >60 [facility] ID Date Data Source [id number] 07/26/2020 04:19:54 PM [facility] Name Value Range Interpretation Code Description Data Joyce rce(s) Supporting Document(s) Progress Note [facility] OXZHEv3kNzJJQsHd35/XNXcpIQGne8GqFSewLCl8LZflCHVrZ9BkYKY3eY5uNKY2DAbEWzUoGzGqCyR3 lbm RoHwcWTpHpQSFdUpnGMxHpFKqbLzeswKFtTV4FnKM2WGQiN59dRQYdYRZuD9VpPAHuODR+Nc4WLHKjeX JbEI9MQjrD5Q8qicz6Sz0jli6QfiEkJq1BHTAvjA55E284QgWlhRd78d4qj8F5okXvQs1Lwj9/vrtL7k xKyvYqFBYc5EKxNaQqRRVHHHYfUZPyz/5NE8qdfORZ n/ZjkmpxPBa//00XjVo3366kDMJUD2N6DaFEjl+Buj3g+1YYjYYl1MqPi3MvhPUgLP5vFqnEf9w/Z8e/ JxXRH6P4rugr0o041Rflj13JeYfGLnf0+KATHIE/kOnRHJHfiKwTKhqfQfXmvTZyfpZqhTgX4rNoxMvjofm [file] 92F3A2y3/G9xC0PU/N/y5+TPNAHY/GROUP MARKETING VP/+hlq+QwiR53O/exlNPK24H1dK5eznRN37lvSfy/iB70KD2br [file] ICAgICAgICAgICAgICAgICAgICAgICAgICAgICAgIC AgICAgICAgICAgICAgICAgICAgICAgICAgICAgICAgICAgICAgDQogICAgICAgICAgICAgICAgICAgIC AgICAgICAgICAgICAgICAgICAgICAgICAgICAgICAgICAgICAgICAgICAgICAgICAgICAgICAgICAgIC AgICAgICAgICAgICAgICAgICAgDQogICAgICAgICAg ICAgICAgICAgICAgICAgICAgICAgICAgICAgICAgICAgICAgICAgICAgICAgICAgICAgICAgICAgICAg ICAgICAgICAgICAgICAgICAgICAgICAgICAgICAgDQogICAgICAgICAgICAgICAgICAgICAgICAgICAg ICAgICAgICAgICAgICAgICAgICAgICAgICAgICAgIC AgICAgICAgICAgICAgICAgICAgICAgICAgICAgICAgICAgICAgICAgDQogICAgICAgICAgICAgICAgIC AgICAgICAgICAgICAgICAgICAgICAgICAgICAgICAgICAgICAgICAgICAgICAgICAgICAgICAgICAgIC AgICAgICAgICAgICAgICAgICAgICAgDQogICAgICAg ICAgICAgICAgICAgICAgICAgICAgICAgICAgICAgICAgICAgICAgICAgICAgICAgICAgICAgICAgICAg ICAgICAgICAgICAgICAgICAgICAgICAgICAgICAgICAgDQogICAgICAgICAgICAgICAgICAgICAgICAg ICAgICAgICAgICAgICAgICAgICAgICAgICAgICAgIC AgICAgICAgICAgICAgICAgICAgICAgICAgICAgICAgICAgICAgICAgICAgDQogICAgICAgICAgICAgIC AgICAgICAgICAgICAgICAgICAgICAgICAgICAgICAgICAgICAgICAgICAgICAgICAgICAgICAgICAgIC AgICAgICAgICAgICAgICAgICAgICAgICAgDQogICAg ICAgICAgICAgICAgICAgICAgICAgICAgICAgICAgICAgICAgICAgICAgICAgICAgICAgICAgICAgICAg ICAgICAgICAgICAgICAgICAgICAgICAgICAgICAgICAgICAgDQogICAgICAgICAgICAgICAgICAgICAg ICAgICAgICAgICAgICAgICAgICAgICAgICAgICAgIC YjKJKwUIMoUCUtUPPvJRJuZYXbBBYhYMFwRTHgAKEtQDLjLVDkNDUfWMQaULSdAXt7M5ynEHFdUUWxGK 9eVXd5Dh5+CZoHPmJkRVJ2hcFxrY8XFP7kd8JmOFojMHPda6QsPVb9TY0PPNCxWLhdIK1AMTozdm1MRJ UqELMkmOQBf0tsNzGoLOA4MVJcBldkZG4NJTTwW7fb iyNxGOCvHYPAPQanXQSJDWRmFYJtMnPhAdFhDQSjMZXoCJRQYOL5PDJwIqDzNDMrUUOrGlQiPIKODVLf ZAOiZjLiCMnhCF7Fu5CkxGM0SNh+Xg5QLB6ov4UpAJyoXMYgKW2eaj5ZSYkXUlJuU0NmwtD8CVLsHSZi Jx8PLVBtSFXnjMP5LODmUBEAPjBnE3QkxZ25NDRMRb 4+QMilqbYwZqcMPzIcTJQqs9CwHBe0BZ8FMNCaCPa7mXMrVABeR1Orp8AzNk86APRbJfhcOcEwvrUgAY CEHSNzxlCsLIHPMTPrhCMrGa1wGR6qTTUvLAE1SyUjRNFJUH4VSYFbBDTimRPfCGClZNNSCX5CZBtoHB Y2VGLsjpGngZQeIOuiOK6TIUEqvbVtBoeiYGRJVIz+ No8JGW6hp5AbWAl3IKBok0NzGDg0XL3VHGHfPCwoDLWgIV6oe4MrM9C1VwX2tQGqU4likaczQ0EzuuEt oaPePFCcXPEqPN7WPR3UBZ4RLXDhVMiuHI2MCTR6BNh7NpZ3WPAkCKBiLYHzSS0wMKvcCK5FWTs9X0Hh H5PCSAJnRMGKLAApvTZ4ZIDBGx5OI8IMCpkTTHGYGl 2IPzMoH6NRN7vDJ97ARK8SFYL+PiANCj4+ZEktatXnOtpWDzIsMZUbb4DxRMr5SA7NLZHyJLtuDP6NDL NrbS5eWAhiOC8IQhGqWvBgOFHNYlWpA63rbSYcWPt5X6TrTuZlEXGsZdneJFPhWKrkSuIoANCgVlOfUF ogID4+ID4+MWlyXL1UDMhacwPfNRFxSa8BEUCzPBBu JD4wJUCgTWCnS8H6kRquMWMXCaGrG6vaimopRM8wZLJeI511uRklhgQdHHU3RVSbJt1TETIhGWI8RDLt qBLhNkgeSROLVWdfBT9XeVXuNCA6wW5tXGkfJUTyMSRbJ4gJRzYrvKyeNF80dDknkyLdzXBvNQn+Pg0K YT7hc8EhPCp6quFmEPjmLGWdTKnhUFRnLXDxTNUcOM Z4MTI7UZKEKfJuNTIlZPThCIgmEDYwKKJsvn5CTVRmRJJ5HhM9OKLdQRGwQRHtKRjtPPGgPRI3ELC9QV EtSODsIO6IMmScOSZrUIMfPGivIPVnYBEywg0CIUPfZAYcJfV8MVVlXDEpVQTiNBfkQTTmRLY7ULRyFU AyMNBbHP4IMkMbWNIyIGZ0TKEuGZBiTMCeek8VKJEd STFnGwS1ORCaSMGhCKGxDOjwMCEnQEC6PJK7ECGeGJSjVV7DHxFbYEYrCKU0EFTlTDGaMDRdyk7NHIIo PVUsXWbyKQQcOBRpUBJzOUezFLGoIJU5AEJ1AVNvCCKySN8XOyKyNKXlJQCnCsIkYAUqVFTprp5IJSBx TKMuWEVgKFPiZTOiAOTpWYatGEVsLYQ0HtJ8KHBgPI CsRX7GEgDmYKVlQqL3CrfhKQHuFLPoiv6JRYZrVUJkHSMpFSTtBTDsMTDyAGvaVHAfPCH2TNmyXESwKF HuOH4KZvPdWZQaVoXaOcVkDTAdYJAhuf9APSXwOJIeOEv8XFKgUQHgFHTtEPdxLYGiBLG0ZMHwAOHeDP LvSS9TQrEcFRGqMxC8UPUyMBOiQTMqhc3WJCZwFUDt TXskGBVdRMEsLSCwISioVBZoSIYqRNL9FABmDJFeTS3DFsJhIKFrDpOhVqJaMKCeAKNcnd4STGFnLBRu QpK2HTGrERQySQRkBIcxVQFzLLByCrR5EWYcREDsMY9LOmJoBFFfQyK0VMRxHXTfAYPawd1DSVYxVKKc JhS2LMHeIBLwCCTzQFpuMIBqCXA3LMZ5CGFiNKAxDK 5RPnBwVNBzXRZxZPTqZUKfMSTtkh9XHTGsOMZ4PDQ6GhGmWPEoDYRoLJfzHHInGAJ8ATVhMVGpPYZnSR 8BTaTnIYUhUNT2VPwiRKYrLDXhnv3YRTSpCDE0CjklFqDwEBNaPTMoVUekSJQbONW4NHzmIAMnHPDwQS 1KPbTtJVKcXRgyDmluHMUaHWPjde0IFNKtIXI3PaK3 PCGhERPmMVDdTFkyQIQiMZS8XPa5VCBtYMTtKJ2FQyHpWFEuYMzwRLlzAZWgBRHcig6DKXQsQUI2ZSR0 DoMhQQEzFCBoFUc6bfJqrDYwRLq3HI7MR4TwbuFlIZDPJc0Lu051VYRjNNMpOb2YZ3dcIi0aJAEvXFDI Ks4HQOw7UZp8VpQaNJCjBBEnOMD9MDZzYqF5GZWtSy RzAbS1RdS+DWh7DfDbGwQuCsUmREDuAykbR2LdZrQgKcXoPQFxZEfkRA6wLHJRZy0+DQpzdGFydHhyZW DRNcU9WEHtGAcxTCXLTe3K ID Date Data Source [id number] 07/18/2020 12:23:04 PM [facility] Name Value Range Interpretation Code Description Data Joyce rce(s) Supporting Document(s) Progress Note [facility] LIGGFi0hOdZYZyYf81/NJTuiBHCkt4DsPNopORh5VNnpYZTdT3XfGQA9eH9wSDR3MIzFKcFrYeEuCtBy lbm [file] DQo+Co6Xx5XuntH6dzUsCEg0SIKsOAzdVKMRJw6V ID Date Data Source [id number] 07/18/2020 09:22:01 AM [facility] Name Value Range Interpretation Code Description Data Joyce rce(s) Supporting Document(s) Leukocytes [#/volume] in Blood by Automated count 7.9 10*3/uL 4-10 [facility] Erythrocytes [#/volume] in Blood by Automated count 3.96 10*6/uL 4.1- 5.3 L [facility] Hemoglobin [Mass/volume] in Blood 13.4 g/dL 11.5-15.5 [facility] Hematocrit [Volume Fraction] of Blood by Automated count 39.2 % 3 6-45 [facility] Erythrocyte mean corpuscular volume [Entitic volume] by Auto mated count 98.8 fL 80-96 H [facility] Erythrocyte mean corpuscular hemoglobin [Entitic mass] by Automated count 33.8 pg 27-33 H [facility] Erythrocyte mean corpuscular hemoglobin concentration [Mass/volume] by Automated count 34.2 g/dL 32.0-36.0 [facility] width [Ratio] by Automated count 14.0 % 11.5-14.5 [facility] Platelets [#/volume] in Blood by Automated count 294 10*3/uL 150-400 [facility] Differential cell count method - Blood [facility] Neutrophils/100 leukocytes in Blood by Automated count 69 % [facility] Lymphocytes/100 leukocytes in Blood by Automated count 20 % [facility] Monocytes/100 leukocytes in Blood by Automated count 9 % [facility] Eosinophils/100 leukocytes in Blood by Automated count 1 % [facility] Basophils/100 leukocytes in Blood by Automated count 1 % [facility] Neutrophils [#/volume] in Blood by Automated count 5.36 10*3/uL 1.8-7 .0 [facility] Lymphocytes [#/volume] in Blood by Automated count 1.61 10*3/uL 1.2-4 .0 [facility] Monocytes [#/volume] in Blood by Automated count 0.72 10*3/uL 0-0.8 [facility] Eosinophils [#/volume] in Blood by Automated count 0.08 10*3/uL 0-0.5 [facility] Basophils [#/volume] in Blood by Automated count 0.08 10*3/uL 0-0.2 [facility] Nucleated erythrocytes/100 leukocytes [Ratio] in Blood by Automated count 0 /100{WBCs} 0-0 [facility] ID Date Data Source [id number] 07/18/2020 09:52:34 AM [facility] Name Value Range Interpretation Code Description Data Joyce rce(s) Supporting Document(s) Albumin [Mass/volume] in Serum or Plasma by Bromocresol green (BCG) dye binding method 3.8 g/dL 3.5-5.2 [facility] Bil[facility].total [Mass/volume] in Serum or Plasma 0.2 mg/dL <1.2 [facility] Calcium [Mass/volume] in Serum or Plasma 9.5 mg/dL 8.6-10.0 [facility] Chloride [Moles/volume] in Serum or Plasma 107 mmol/L 98-107 [facility] Creatinine [Mass/volume] in Serum or Plasma 0.60 mg/dL 0.50-0.90 [facility] Glucose [Mass/volume] in Serum or Plasma 103 mg/dL 70-140 [facility] Alkaline phosphatase [Enzymatic activity/volume] in Serum or Plasma 108 U/L 35-104 H [facility] Potassium [Moles/volume] in Serum or Plasma 3.7 mmol/L 3.4-5.1 [facility] Protein [Mass/volume] in Serum or Plasma 7.0 g/dL 6.4-8.3 [facility] Sodium [Moles/volume] in Serum or Plasma 137 mmol/L 136-145 [facility] Aspartate aminotransferase [Enzymatic activity/volume] in Serum or Plasma 21 U/L <32 [facility] Urea nitrogen [Mass/volume] in Serum or Plasma 5 mg/dL 6-20 L [facility] Osmolality of Serum or Plasma by calculation 282 mosm/kg 275-300 [facility] Creatinine/Urea nitrogen [Mass Ratio] in Serum or Plasma 8 [facility] Bicarbonate [Moles/volume] in Serum 23 mmol/L 22-29 [facility] Alanine aminotransferase [Enzymatic activity/volume] in Seru m or Plasma 19 U/L <33 [facility] Anion gap 3 in Serum or Plasma 8 mmol/L 8-15 [facility] Glomerular filtration rate/1.73 sq M pre dicted among non-blacks [Volume Rate/Area] in Serum or Plasma by Creatinine-based formula (MDRD) >6 0 [facility] Glomerular filtration rate/1.73 sq M pre dicted among blacks [Volume Rate/Area] in Serum or Plasma by Creatinine-based formula (MDRD) >60 [facility] ID Date Data Source [id number] 07/13/2020 04:41:11 PM [facility] Name Value Range Interpretation Code Description Data Joyce rce(s) Supporting Document(s) Progress Note [facility] XBQDRx3rSoGFOjXp72/TRBzkBVTth2DiYBsxLBa2LTzeVOCqV6VpAMF7nF4cAFS2AQpQBtEwAeKfRvC4 [facility] [file] guYWP4OnXfFdQ+SZ5dUAh+Zd3Dp6XssbH2oxMiGPqlDGn3Pp1ZAVDBF6VZHh== ID Date Data Source [id number] 07/11/2020 05:31:09 PM [facility] Name Value Range Interpretation Code Description Data Joyce rce(s) Supporting Document(s) Progress Note [facility] YBERXw0eWgCSGsYo61/IXHgkJCLir5OrQUamNBj1XWvrAAFvX5OwNAC9uD7mMKD7BHgSXyYwGhUqDsVc lbm [file] ICAgICAgICAgICAgICAgICAgICAgICAgICAgICAgIC CwZXGeNSTmBRWjQZAaPUHrBYAjXHFuJGDdOSPoUSDeISZvLXBfCGFjVZOlVFHlABSgXHNzXH0DGSGuZX AgICAgICAgICAgICAgICAgICAgICAgICAgICAgICAgICAgICAgICAgICAgICAgICAgICAgICAgICAgIC AgICAgICAgICAgICAgICAgICAgICAgICAgICAgICAg ULMfLP0XJGXhXGHvNNAiUYAyELTlYZWdQTFcEVQySUDsYNSaSGBhHIHyDQHrXAZzRCIcWVKoLCRaXRYj CAMnRFEaBIEbDFXbWRNjITZfWIVfSXFlTBSlAOUwOQOaZZFeRRTaEENsVLBnYO4PLEZdRTCxTHDpKSCm ICAgICAgICAgICAgICAgICAgICAgICAgICAgICAgIC BvHJOwOMRmHOCiLYClPONuQQYdLNPzCXRxLZEsOVTuQMTiDAHjBCKfXHKbMLJjMMYjRSMhKHOmPM6RZU AgICAgICAgICAgICAgICAgICAgICAgICAgICAgICAgICAgICAgICAgICAgICAgICAgICAgICAgICAgIC AgICAgICAgICAgICAgICAgICAgICAgICAgICAgICAg TSDaJQFaBT8REOLqDKGzTHMpCDLdCTVsHZZsSQRpSNFtTZBoOXImIPGaUODdIAPaPRPzKVDhEDHkFUCm QIQlFVMsGYXbPQXiAZYtYVPoQLBkLCFpGGEfERKhHOBkHWEoJTRyMFTuGDKsQSNlNK2YIZXmKGNjNCBe ICAgICAgICAgICAgICAgICAgICAgICAgICAgICAgIC AgICAgICAgICAgICAgICAgICAgICAgICAgICAgICAgICAgICAgICAgICAgICAgICAgICAgICAgICAgIA 0KICAgICAgICAgICAgICAgICAgICAgICAgICAgICAgICAgICAgICAgICAgICAgICAgICAgICAgICAgIC AgICAgICAgICAgICAgICAgICAgICAgICAgICAgICAg MSUbUFMcAXZwOM4IUVQzDPFbNOYsNMCcVNVpRQYpEGDaZFYiASTrPOCoPBEyNFHbXHLxSWUjTMMbEXRe WOUiICVlZFEbVZXtOYHoISMrFMZjIMOqEILsDCRwOFVoMKDzFUOsCSPqJMNmMDDbNEArDF8NWL86gXDa j1Z2JCQpZR5xtqv/Tg1OQHdmwwPyjKJpXW7AViGgYB 3xyi9RVsRxOK0xdg1SPCbNUqHiS7T9uYXvFVQtSRFBOhByR45fGXhpAg13OJfcHJPePzDuBUm9Lq4XUn HbI8atHOOpQlK4VRHbCgZ4YHVsLgA3PVPwHqIcNNFwLOVoPOXlVPRSQDT8DXYkSeQaRfRuTHMiAZalMC IWQAZhJERzCpRoDYtwTL0Ac8FwgLM6KKz+Cv1EQS6k t7XsPUe4VqBjJZ5cxk3QCOhMAjUpC4AxorC1MQZ6OWVfCx0TSWStJWHfyAR8YaLgHPABGeGwU7QhhT30 IDENCj4+TQfxunBvYaxMHrQ1WSIlx0KlOXt0VU6DNGAzPAj1gBBzTSPnK7Hlk7RxXi53RWLrCjesNbGq os3rSLNzUOJyQVjeURTbFXYrXHKbFR7cZKMoRGHxXj KkVQLGPT7SXEJaXVGedCXsAMKpQAOBUQ6ZDAbaCSB5XJEfabJhtUJeYKqtTV6WVDHsuyPqTODqICTANA o+My7MPA9dr9KnYYj2TKGkFO4dqn6VDIiPRjOkM0D7xUMvO2I7FJfrUj6DKACqUTZnBVToBAEMJGypBH 7CYV8mqoH6QB3SeLNtKEXoLEOuyFLtPZl7R45fnQGf LKhcYN5YYEA+Ron+Sx9OHMWvVZHlRQSbJlPyPGYHKvFmW5WnY7KCi2LjO9DoMK25wEzniaPuLVanHM1Z EY5vREFdDRELUG4ZcBGxnL5fqmH0JpNwIFDSIkPjL97byXWeRFChZJM5MEVoBd7FLZOdT4AvziShbUqp dtGfWRFjRQGIMT0JCViuzjTlzSCssFcpPB16jGceEB 0VYz2PEoWdNB3xye2ZrYQeLd7ZHJE1GJ2LGOWlHPXrRKJtEQN2ZYSrBiUoAAdkLKMvTRZbSPT5MYAgBU XrYM6BIjQmUOYbZgo8LVQuLVTxPTFhkf0QNCKkCAB9YWH7JvZoGTWyLRNbMLteHAIvLGXfWPH8RQJtYR WpZA1PHhPkVYFaMVU6AYRlWAXfMHPjgz4XNEWtVWQj ZXs0GdIiSATtVXBjTLurAJHbBYZ5WQV5ZSYcYRUnRW2MCtXmLYYpZOEbYKcsATMwHTAzqt7IYQHbGHFe XuV8FMHvVTLaISQtXAvhMNQqWSUwAVrbOGVaURZnHX4HJhEyFVNiUQY6VrVlPQOjHYHxau5DKGMhLWDz BDW9UwMuBIUrDFOeQQnwKYChSRK5SpH0RWXwRUHaTO 9HMqLhFZXbLMt5RvWfAHNkQIVzqr0XAIVoRXUuCfS8IZBkVHVgNRTjRJueKKNcYADmYaL0FSPhJOVrFQ 3OUvRjXJGmPvgmDWjqZGPuTADkbc7QPHAsOGPwKdAwEWFkLAXeLKFmIGkwTYWmZJOqHRK2GYJtZLEmBJ 3ETfUvOPVqTyO6UmHxNHVrQXNwrz3FWKEbMQIfWpn6 WFQpMQPaXYDxWCjzTHKpPCHoQPj0MTJtRZXaXD6EBoMuXFWhQsE8AcBnRSYqFRFpya5HGTGeIIPqJHRd NCRfEAYmHIFnLKvuMGWeQQH7PaC3XDYqLBXyEK4SAyJdBWHaQwCvCvAbPUOlABRsws1MTEKiGNFhUSS5 TRIvPRHxSMEzPGivTMTqVZH8FjOzQHRhOLHoEB2NZo TrXHHfKLxhJCWvURDnLLVgun3HNXLrPWM4FdUpRBHcYYExMHZtJRabCSCrDNR1PgH8GALtELOeDD7QAu JxQJBwVQs3IhalWTBtLIZjjy8MCMQqYAV1LGAzXfVlVVGcRYCcGLjiKBOvFHT0OMD5RJYvCVOdFO6LAz FaSFKvQXzhIRisORQlSSJefg6VUPEuMVT2SQPgNBRh HWGtFODsAWmlYIKpAUo8XzApCMEeBHNeYI2HUnJnRYNeAutiLzDwKTDaLADcoe9ACJGpDUS4QdH5IOBn JWRyYJMcLBubOMPgXAd2NDCrMOJfBFSwTB6ZJnMuOVWmAaz3NeXiFNTdEKDpur0BJIHfMVG3PNEnEREq HYMyWYMaGLwrWILuWJx4Gjd6WRImHCTgZT0YXzNrRT LrNah3BvJlLJEfMPLmrt2JDLFqCBD8WVTkQeHrNYQvJBXjDIegZTEaVBahILH6ZOPxNWYjQB1CRwHvQE PcGAS6HJPcCZIcHBGhto6RKMFlGTK7FgKiSNTbVITaVHOvJYe5kgCiaHGhBNe8LN3YC2EiwaEeCAaUQz 1Cn192BVP9HAYmPk1NJ6htQp7yJXQjYPSEEx1TYWb2 U6EdTsW3EyA9FuEpRSFmILS0IzBdDUilBTL6RHe0FFU+LGhrKbW4YUzwTKV8ApZ8KMB3PaQiHfL2HBVv NfrpCvK2BE1rWOGIIl1+JThtcZNfrQwfVYJLEhhlYwz5VIioCZQGVb9Z ID Date Data Source [id number] 07/09/2020 04:20:48 PM [facility] US BREAST INCLUDING AXILLA COMPLETE LEFT [id number] RESULTInterpreted by:Stevie Wolf MDTARGETED LEFT BREAST ULTRASOUNDHISTORY: [...] rce(s) Supporting Document(s) ID Date Data Source [id number] 07/03/2020 01:48:51 PM [facility] Name Value Range Interpretation Code Description Data Joyce rce(s) Supporting Document(s) Leukocytes [#/volume] in Blood by Automated count 5.3 10*3/uL 4-10 [facility] Erythrocytes [#/volume] in Blood by Automated count 3.60 10*6/uL 4.1- 5.3 L [facility] Hemoglobin [Mass/volume] in Blood 12.4 g/dL 11.5-15.5 [facility] Hematocrit [Volume Fraction] of Blood by Automated count 36.0 % 3 6-45 [facility] Erythrocyte mean corpuscular volume [Entitic volume] b y Automated count 100.0 fL 80-96 H [facility] Erythrocyte mean corpuscular hemoglobin [Entitic mass] by Automated count 34.4 pg 27-33 H [facility] Erythrocyte mean corpuscular hemoglobin concentration [Mass/volume] by Autom[facility] 34.4 g/[facility].0[facility] width [Ratio] by Automated count 14.5 % 11.5-14.5 [facility] Platelets [#/volume] in Blood by Automated count 218 10*3/uL 150-400 [facility] Differential cell count method - Blood [facility] Neutrophils/100 leukocytes in Blood by Automated count 65 % [facility] Lymphocytes/100 leukocytes in Blood by Automated count 26 % [facility] Monocytes/100 leukocytes in Blood by Automated count 7 % [facility] Eosinophils/100 leukocytes in Blood by Automated count 1 % [facility] Basophils/100 leukocytes in Blood by Automated count 1 % [facility] Neutrophils [#/volume] in Blood by Automated count 3.44 10*3/uL 1.8-7 .0 [facility] Lymphocytes [#/volume] in Blood by Automated count 1.39 10*3/uL 1.2-4 .0 [facility] Monocytes [#/volume] in Blood by Automated count 0.38 10*3/uL 0-0.8 [facility] Eosinophils [#/volume] in Blood by Automated count 0.07 10*3/uL 0-0.5 [facility] Basophils [#/volume] in Blood by Automated count 0.05 10*3/uL 0-0.2 [facility] Nucleated erythrocytes/100 leukocytes [Ratio] in Blood by Automated count 0 /100{WBCs} 0-0 [facility] ID Date Data Source [id number] 07/03/2020 02:19:06 PM [facility] Name Value Range Interpretation Code Description Data Joyce rce(s) Supporting Document(s) Albumin [Mass/volume] in Serum or Plasma by Bromocresol green (BCG) dye binding method 3.9 g/dL 3.5-5.2 [facility] Bil[facility].total [Mass/volume] in Serum or Plasma 0.2 mg/dL <1.2 [facility] Calcium [Mass/volume] in Serum or Plasma 9.3 mg/dL 8.6-10.0 [facility] Chloride [Moles/volume] in Serum or Plasma 106 mmol/L 98-107 [facility] Creatinine [Mass/volume] in Serum or Plasma 0.68 mg/dL 0.50-0.90 [facility] Glucose [Mass/volume] in Serum or Plasma 98 mg/dL 70-140 [facility] Alkaline phosphatase [Enzymatic activity/volume] in Serum or Plasma 163 U/L 35-104 H [facility] Potassium [Moles/volume] in Serum or Plasma 3.7 mmol/L 3.4-5.1 [facility] Protein [Mass/volume] in Serum or Plasma 6.7 g/dL 6.4-8.3 [facility] Sodium [Moles/volume] in Serum or Plasma 137 mmol/L 136-145 [facility] Aspartate aminotransferase [Enzymatic activity/volume] in Serum or Plasma 160 U/L <32 H [facility] Urea nitrogen [Mass/volume] in Serum or Plasma 5 mg/dL 6-20 L [facility] Osmolality of Serum or Plasma by calculation 280 mosm/kg 275-300 [facility] Creatinine/Urea nitrogen [Mass Ratio] in Serum or Plasma 8 [facility] Bicarbonate [Moles/volume] in Serum 22 mmol/L 22-29 [facility] Alanine aminotransferase [Enzymatic activity/volume] in Seru m or Plasma 126 U/L <33 H [facility] Anion gap 3 in Serum or Plasma 9 mmol/L 8-15 [facility] Glomerular filtration rate/1.73 sq M pre dicted among non-blacks [Volume Rate/Area] in Serum or Plasma by Creatinine-based formula (MDRD) >6 0 [facility] Glomerular filtration rate/1.73 sq M pre dicted among blacks [Volume Rate/Area] in Serum or Plasma by Creatinine-based formula (MDRD) >60 [facility] ID Date Data Source [id number] 07/01/2020 08:04:41 PM [facility] Name Value Range Interpretation Code Description Data Joyce rce(s) Supporting Document(s) Progress Note [facility] WDZELo8zIjKPZnPy02/DPSztROQxy5LlLEzjQTi7UZtdUJVgF7TwUJL5uB7kNFE7KKaCHlRhDvEjDZCk lbm HrXzvLOrZpRLAfDohLTfXuPNjuXgesfQUxUO5PgNH1RQXpX37yNKSkWFJpA8HtMVGwUOG+Wd3ZBHBorP YsLB8KXscO2G5ht1wOSt1gfB7hqmIFuyiLMY6zm2BF1+Yuz6vyXxoak8rfBYw4gCgYKgK3199/JHdX1I rAS7DtQiV6E5dlzO1iFbsxwwuiMWJ7m/8CQ8LniT5c /ix+fTYinP6Va/7vioiGG8dkytZFbTD+v4nowdE+Bxe9Lmi/Efx5yel2qIFppuDWAXFrguJcUU0Db66P in0Qhytr7tmT9gbrjCs4mNCeVOnpUr5HzZ4+LE5+Of8AxEh3hIyprIr6P7lRMwqNm7q2CL1nV6obK4Al Sc24lFPI3W01D05Lyyxnmo8S/QUyiC183qdHCbFoGh gyF+e8/KblinNbG16eQitoVVpcIyCmpAw+JimSbw0ZWN9lpUQv2nNgrgkpt+OzOd/W+VoydbMY8heaFZ Slovak/cloTMJR5Da8RONYEoJDlcy7ZyudpQl+6ZGylZ2QBl0C+D20wwUfvyQ610w3oEK2+xYTREnSLebl++ [file] JOC5ZKx1ZdLwOm7kXVJWWa6+XUdcjKRsgOzrPNMPBlN7NSJsLPmzYIERQj8R ID Date Data Source [id number] 06/27/2020 06:41:42 PM [facility] Name Value Range Interpretation Code Description Data Joyce rce(s) Supporting Document(s) Progress Note [facility] FFZKRg2qLxUCGmUr36/BRHtcTACqp7ErNUvlFGv3XKkbLSAgK9FoDCT7gA5zPQE2AQwVYqEbJrUyLRN5 lbm [file] VZGIbBlz/respiratory tech/NeHGx/IT60HbwugsXw4O0+zu0SqsgDnfDZl0DaNMCvAvoCEVKV5h/uBH93+qPxP53+yX [file] XSANCj4+WJcwuBSvoNleXPILZqi6Hbq9IWoxMVKVEz4N ID Date Data Source [id number] 06/27/2020 09:05:32 AM EST [facility] Name Value Range Interpretation Code Description Data Joyce rce(s) Supporting Document(s) Leukocytes [#/volume] in Blood by Automated count 7.1 10*3/uL 4-10 [facility] Erythrocytes [#/volume] in Blood by Automated count 3.65 10*6/uL 4.1- 5.3 L [facility] Hemoglobin [Mass/volume] in Blood 12.4 g/dL 11.5-15.5 [facility] Hematocrit [Volume Fraction] of Blood by Automated count 36.7 % 3 6-45 [facility] Erythrocyte mean corpuscular volume [Entitic volume] b y Automated count 100.7 fL 80-96 H [facility] Erythrocyte mean corpuscular hemoglobin [Entitic mass] by Automated count 34.1 pg 27-33 H [facility] Erythrocyte mean corpuscular hemoglobin concentration [Mass/volume] by Automated count 33.8 g/dL [facility].0-[facility] width [Ratio] by Automated count 14.8 % 11.5-14.5 H [facility] Platelets [#/volume] in Blood by Automated count 268 10*3/uL 150-400 [facility] Differential cell count method - Blood [facility] Neutrophils/100 leukocytes in Blood by Automated count 71 % [facility] Lymphocytes/100 leukocytes in Blood by Automated count 18 % [facility] Monocytes/100 leukocytes in Blood by Automated count 8 % [facility] Eosinophils/100 leukocytes in Blood by Automated count 2 % [facility] Basophils/100 leukocytes in Blood by Automated count 1 % [facility] Neutrophils [#/volume] in Blood by Automated count 5.08 10*3/uL 1.8-7 .0 [facility] Lymphocytes [#/volume] in Blood by Automated count 1.30 10*3/uL 1.2-4 .0 [facility] Monocytes [#/volume] in Blood by Automated count 0.58 10*3/uL 0-0.8 [facility] Eosinophils [#/volume] in Blood by Automated count 0.14 10*3/uL 0-0.5 [facility] Basophils [#/volume] in Blood by Automated count 0.06 10*3/uL 0-0.2 [facility] Nucleated erythrocytes/100 leukocytes [Ratio] in Blood by Automated count 0 /100{WBCs} 0-0 [facility] ID Date Data Source [id number] 06/27/2020 10:28:50 AM [facility] Name Value Range Interpretation Code Description Data Joyce rce(s) Supporting Document(s) Albumin [Mass/volume] in Serum or Plasma by Bromocresol green (BCG) dye binding method 4.1 g/dL 3.5-5.2 [facility] Bil[facility].total [Mass/volume] in Serum or Plasma 0.2 mg/dL <1.2 [facility] Calcium [Mass/volume] in Serum or Plasma 9.5 mg/dL 8.6-10.0 [facility] Chloride [Moles/volume] in Serum or Plasma 107 mmol/L 98-107 [facility] Creatinine [Mass/volume] in Serum or Plasma 0.72 mg/dL 0.50-0.90 [facility] Glucose [Mass/volume] in Serum or Plasma 88 mg/dL 70-140 [facility] Alkaline phosphatase [Enzymatic activity/volume] in Serum or Plasma 93 U/L 35-104 [facility] Potassium [Moles/volume] in Serum or Plasma 4.1 mmol/L 3.4-5.1 [facility] Protein [Mass/volume] in Serum or Plasma 6.8 g/dL 6.4-8.3 [facility] Sodium [Moles/volume] in Serum or Plasma 140 mmol/L 136-145 [facility] Aspartate aminotransferase [Enzymatic activity/volume] in Serum or Plasma 29 U/L <32 [facility] Urea nitrogen [Mass/volume] in Serum or Plasma 8 mg/dL 6-20 [facility] Osmolality of Serum or Plasma by calculation 287 mosm/kg 275-300 [facility] Creatinine/Urea nitrogen [Mass Ratio] in Serum or Plasma 11 [facility] Bicarbonate [Moles/volume] in Serum 23 mmol/L 22-29 [facility] Alanine aminotransferase [Enzymatic activity/volume] in Seru m or Plasma 22 U/L <33 [facility] Anion gap 3 in Serum or Plasma 10 mmol/L 8-15 [facility] Glomerular filtration rate/1.73 sq M pre dicted among non-blacks [Volume Rate/Area] in Serum or Plasma by Creatinine-based formula (MDRD) >6 0 [facility] Glomerular filtration rate/1.73 sq M pre dicted among blacks [Volume Rate/Area] in Serum or Plasma by Creatinine-based formula (MDRD) >60 [facility] ID Date Data Source [id number] 06/18/2020 07:18:22 AM EST [facility] Name Value Range Interpretation Code Description Data Joyce rce(s) Supporting Document(s) Progress Note [facility] ZMNWPl1hUoOLFhDo84/RGSveHIGfe2HoAHgpPJq3UIstIRAxA9OnVDV7wH6pCAT4TCkYYzXlOuLzYDJj lbm [file] WaJr6IualbgUM+[employer] VP/[id number]/8gQrki8FVpc1 [file] == ID Date Data Source [id number] 06/13/2020 01:04:12 PM [facility] Name Value Range Interpretation Code Description Data Joyce rce(s) Supporting Document(s) Progress Note [facility] QPBCIu7dSmOQJcGc08/QWWevHXKcv0ZyVUeuWXx7IQrwLQZjO8RjGCZ8wB0tKIS5WBfSAjIyKyKzMJA5 lbm [file] O5YCU6jKExRh6ZARd3NgyMQkDqKJ6ZOMz= ID Date Data Source [id number] 06/13/2020 11:33:50 AM [facility] Name Value Range Interpretation Code Description Data Joyce rce(s) Supporting Document(s) Progress Note [facility] JHYJYz5mVyXYCzEz42/LMTsqDACgj5SiHEzhWXn0EWkbCYYrH6KqNLM3wZ8sTMP8KHxARxOnJaTjQNQ4 lbm [file] FhKDeaCCI8BT0USPBJL9TYDj== ID Date Data Source [id number] 06/13/2020 10:26:10 AM [facility] Name Value Range Interpretation Code Description Data Joyce rce(s) Supporting Document(s) Progress Note [facility] PJJNAb3hZyOIAvYt48/CAQudCDWoc8BxZIwmIKn2DDqaEHUeT6LjJXQ3uA4xBZI2EIlMXeRaSaReHNX1 lbm MxWqsTFlFhIHSgCtsDWjJgKAdvGjfsgCZzDG6FmHL2IYJdH72bEFXrPHGqQ9IqTTJeJBa+Ab6LHERxiA XyBE2WKucRwMxmtmeCZV1p0A3qqdGWoAeJ+313mSNlr60hzPK4uqBEE6qofnuLTimCbK/ilyiT74KvmD JJFUADOoFolq1xWNd07jzhDDdJ59wom/42TjxxOxA/ /jFE94tgtk8kvn0pMO9tsckNIH558zcYy55sfX3Jskcj1yAF73XUyXtDeCg5y1qj39oFzWyrW9yk9NhN a2J01ouUZ+MXnUpsfB1uktz+EC+34e6PAW4nJyu86874z7AJ4s2r+IOudz8PSgpcgvpbBVE3HR0SzVh2 oTlpc7bwl+WEzamM39Xe6AHw0geIA2v0CWZSHauprQ vgZxC69P9APqlvnf/2vTp+4z4h8fKBNPt9BBp+4R6V1YdIQ+GvqmzQfs7Gr3FiKBqDEGcO4mMHBGd8qM 6UzVCreHi+Ufl4e53iM61s+l2pf+6xtRqloa4HTY93NUUnCHCKUp7TUZy1pd6FPMhs3i513wMzFVpwWW O08HrhuyEoAvhrk66hE4XX0Uk9wiYzTNGq9Qebfdy0 dKwI3fakISZlhesR23CDwehlmXK/wpk2HycEVn1n0AhetTdJdauBV+vdHW5OoPNo1clSeonvlU9yut1b mr1s8R/Etj9br21GLEjWs7OCVKtYiazsqzRzBxn+GkJ5YX56ofiE5TCrZrHNUhnyGa1tfzCORycDcsr4 qww4b5OGsc6uvcwlwepZtwawptcoKEMmo5Gqku7udu Lv7N32LZrrWMgAm8Nqc2QzNgRMFlMKnXClTkXQYfgpCDB3CEtJEtAf8eCZsGWT2OCpYZFMO/bbyUTgu2 5APNm2T+XO9u5gHan3I0lTzM1AlNW1LfewEwjcTm7hAmWaTTkht2/5qbdihnHKyeokqV2fFTdtmnsCvn wR1OO4x/tPBkveAVNK1etiOBYQrgxeo3vZEHCWpt8j 5ZOncEpGGhv14fGHOti8rSQWpWLDoztP7q3IWj6uLn01O2nzlAMdotVak2BcTi2UMhdT8AYgnPYPb0J8 uonjXL87jYyqXUCSSRcLIYq5TyM1hxFWyDJp4SYDRP3WBKWi1w6XuBLoQx2nMftLhHHf7NZLW0ZIH86+ zIPWkYTfB3JhYyULlZPfiiadhqkNDtS2J28+Saqrhp Passenger [employer] Clerk/cQOmm7fGtpMFzKshAtwp67Ih9pJpFfJTOFlILAx0EWBeBeRVljBHHHUrYK+P6j6vDkZpsQsN4s+ym [file] OWFlZjQ+PK6tUJs+Ge3Zz2EbdzO0poLiTGp7VXH9MJtsESEZKa0C ID Date Data Source [id number] 06/13/2020 09:53:44 AM [facility] Name Value Range Interpretation Code Description Data Joyce rce(s) Supporting Document(s) Leukocytes [#/volume] in Blood by Automated count 7.4 10*3/uL 4-10 [facility] Erythrocytes [#/volume] in Blood by Automated count 3.46 10*6/uL 4.1- 5.3 L [facility] Hemoglobin [Mass/volume] in Blood 11.9 g/dL 11.5-15.5 [facility] Hematocrit [Volume Fraction] of Blood by Automated count 34.8 % 3 6-45 L [facility] Erythrocyte mean corpuscular volume [Entitic volume] b y Automated count 100.6 fL 80-96 H [facility] Erythrocyte mean corpuscular hemoglobin [Entitic mass] by Automated count 34.5 pg 27-33 H [facility] Erythrocyte mean corpuscular hemoglobin concentration [Mass/volume] by Automated count 34.3 g/dL 32.0-36.0 [facility] width [Ratio] by Automated count 16.2 % 11.5-14.5 H [facility] Platelets [#/volume] in Blood by Automated count 284 10*3/uL 150-400 [facility] Differential cell count method - Blood [facility] Neutrophils/100 leukocytes in Blood by Automated count 79 % [facility] Lymphocytes/100 leukocytes in Blood by Automated count 14 % [facility] Monocytes/100 leukocytes in Blood by Automated count 5 % [facility] Eosinophils/100 leukocytes in Blood by Automated count 1 % [facility] Basophils/100 leukocytes in Blood by Automated count 1 % [facility] Neutrophils [#/volume] in Blood by Automated count 5.90 10*3/uL 1.8-7 .0 [facility] Lymphocytes [#/volume] in Blood by Automated count 1.06 10*3/uL 1.2-4 .0 L [facility] Monocytes [#/volume] in Blood by Automated count 0.36 10*3/uL 0-0.8 [facility] Eosinophils [#/volume] in Blood by Automated count 0.08 10*3/uL 0-0.5 [facility] Basophils [#/volume] in Blood by Automated count 0.04 10*3/uL 0-0.2 [facility] Nucleated erythrocytes/100 leukocytes [Ratio] in Blood by Automated count 0 /100{WBCs} 0-0 [facility] ID Date Data Source [id number] 06/13/2020 10:24:29 AM [facility] Name Value Range Interpretation Code Description Data Joyce rce(s) Supporting Document(s) Albumin [Mass/volume] in Serum or Plasma by Bromocresol green (BCG) dye binding method 4.0 g/dL 3.5-5.2 [facility] Bil[facility] [Mass/volume] in Serum or Plasma <1.2 [facility] Calcium [Mass/volume] in Serum or Plasma 8.5 mg/dL 8.6-10.0 L [facility] Chloride [Moles/volume] in Serum or Plasma 110 mmol/L 98-107 H [facility] Creatinine [Mass/volume] in Serum or Plasma 0.63 mg/dL 0.50-0.90 [facility] Glucose [Mass/volume] in Serum or Plasma 91 mg/dL 70-140 [facility] Alkaline phosphatase [Enzymatic activity/volume] in Serum or Plasma 99 U/L 35-104 [facility] Potassium [Moles/volume] in Serum or Plasma 3.7 mmol/L 3.4-5.1 [facility] Protein [Mass/volume] in Serum or Plasma 6.5 g/dL 6.4-8.3 [facility] Sodium [Moles/volume] in Serum or Plasma 139 mmol/L 136-145 [facility] Aspartate aminotransferase [Enzymatic activity/volume] in Serum or Plasma 25 U/L <32 [facility] Urea nitrogen [Mass/volume] in Serum or Plasma 8 mg/dL 6-20 [facility] Osmolality of Serum or Plasma by calculation 286 mosm/kg 275-300 [facility] Creatinine/Urea nitrogen [Mass Ratio] in Serum or Plasma 13 [facility] Bicarbonate [Moles/volume] in Serum 22 mmol/L 22-29 [facility] Alanine aminotransferase [Enzymatic activity/volume] in Seru m or Plasma 25 U/L <33 [facility] Anion gap 3 in Serum or Plasma 7 mmol/L 8-15 L [facility] Glomerular filtration rate/1.73 sq M pre dicted among non-blacks [Volume Rate/Area] in Serum or Plasma by Creatinine-based formula (MDRD) >6 0 [facility] Glomerular filtration rate/1.73 sq M pre dicted among blacks [Volume Rate/Area] in Serum or Plasma by Creatinine-based formula (MDRD) >60 [facility] ID Date Data Source [id number] 06/11/2020 05:01:01 PM [facility] Name Value Range Interpretation Code Description Data Joyce rce(s) Supporting Document(s) Progress Note [facility] YUYKTs3bKoKUNdXp72/JULflHLXpb4PcFSkdLJc2NMcnRCOnE1ZxYIB6bF6lVEU4PYvHCbVwWxOuVSOu m [file] ID Date Data Source [id number] 06/06/2020 02:43:10 PM EDT [facility] Name Value Range Interpretation Code Description Data Joyce rce(s) Supporting Document(s) Progress Note [facility] XQEIIf3vTuTSDmEc10/VFNcnLCCgt0CcYKdbHCy3BFmrOYVwX4TjCUK4hD4vRWU5CArKFxYlKqElAWA5 lbm [file] VvupWZLrHIF4BEJ1Yfu4FJIoMqXmDp7qHAWZIc6+GLjhrSAcsXrhUFSJLbQ6GVM5YQqoUMNWJq1P ID Date Data Source [id number] 06/06/2020 09:04:24 AM EDT [facility] Name Value Range Interpretation Code Description Data Joyce rce(s) Supporting Document(s) Leukocytes [#/volume] in Blood by Automated count 9.2 10*3/uL 4-10 [facility] Erythrocytes [#/volume] in Blood by Automated count 3.63 10*6/uL 4.1- 5.3 L [facility] Hemoglobin [Mass/volume] in Blood 12.4 g/dL 11.5-15.5 [facility] Hematocrit [Volume Fraction] of Blood by Automated count 36.3 % 3 6-45 [facility] Erythrocyte mean corpuscular volume [Entitic volume] b y Automated count 100.0 fL 80-96 H [facility] Erythrocyte mean corpuscular hemoglobin [Entitic mass] by Automated count 34.2 pg 27-33 H [facility] Erythrocyte mean corpuscular hemoglobin concentration [Mass/volume] by Automated count 34.2 g/dL 32.0-36.0 [facility] width [Ratio] by Automated count 17.2 % 11.5-14.5 H [facility] Platelets [#/volume] in Blood by Automated count 257 10*3/uL 150-400 [facility] Differential cell count method - Blood [facility] Neutrophils/100 leukocytes in Blood by Automated count 78 % [facility] Lymphocytes/100 leukocytes in Blood by Automated count 12 % [facility] Monocytes/100 leukocytes in Blood by Automated count 8 % [facility] Eosinophils/100 leukocytes in Blood by Automated count 1 % [facility] Basophils/100 leukocytes in Blood by Automated count 1 % [facility] Neutrophils [#/volume] in Blood by Automated count 7.17 10*3/uL 1.8-7 .0 H [facility] Lymphocytes [#/volume] in Blood by Automated count 1.10 10*3/uL 1.2-4 .0 L [facility] Monocytes [#/volume] in Blood by Automated count 0.75 10*3/uL 0-0.8 [facility] Eosinophils [#/volume] in Blood by Automated count 0.06 10*3/uL 0-0.5 [facility] Basophils [#/volume] in Blood by Automated count 0.07 10*3/uL 0-0.2 [facility] Nucleated erythrocytes/100 leukocytes [Ratio] in Blood by Automated count 0 /100{WBCs} 0-0 [facility] ID Date Data Source [id number] 06/06/2020 10:02:39 AM EDT [facility] Name Value Range Interpretation Code Description Data Joyce rce(s) Supporting Document(s) Albumin [Mass/volume] in Serum or Plasma by Bromocresol green (BCG) dye binding method 3.8 g/dL 3.5-5.2 [facility] Bilirubin.total [Mass/volume] in Serum or Plasma <1.2 [facility] Calcium [Mass/volume] in Serum or Plasma 9.3 mg/dL 8.6-10.0 [facility] Chloride [Moles/volume] in Serum or Plasma 109 mmol/L 98-107 H [facility] Creatinine [Mass/volume] in Serum or Plasma 0.68 mg/dL 0.50-0.90 [facility] Glucose [Mass/volume] in Serum or Plasma 97 mg/dL 70-140 [facility] Alkaline phosphatase [Enzymatic activity/volume] in Serum or Plasma 115 U/L 35-104 H [facility] Potassium [Moles/volume] in Serum or Plasma 3.7 mmol/L 3.4-5.1 [facility] Protein [Mass/volume] in Serum or Plasma 6.6 g/dL 6.4-8.3 [facility] Sodium [Moles/volume] in Serum or Plasma 137 mmol/L 136-145 [facility] Aspartate aminotransferase [Enzymatic activity/volume] in Serum or Plasma 54 U/L <32 H [facility] Urea nitrogen [Mass/volume] in Serum or Plasma 6 mg/dL 6-20 [facility] Osmolality of Serum or Plasma by calculation 282 mosm/kg 275-300 [facility] Creatinine/Urea nitrogen [Mass Ratio] in Serum or Plasma 9 [facility] Bicarbonate [Moles/volume] in Serum 21 mmol/L 22-29 L [facility] Alanine aminotransferase [Enzymatic activity/volume] in Seru m or Plasma 49 U/L <33 H [facility] Anion gap 3 in Serum or Plasma 7 mmol/L 8-15 L [facility] Glomerular filtration rate/1.73 sq M pre dicted among non-blacks [Volume Rate/Area] in Serum or Plasma by Creatinine-based formula (MDRD) >6 0 [facility] Glomerular filtration rate/1.73 sq M pre dicted among blacks [Volume Rate/Area] in Serum or Plasma by Creatinine-based formula (MDRD) >60 [facility] ID Date Data Source [id number] 05/21/2020 11:37:43 PM EDT [facility] Name Value Range Interpretation Code Description Data Joyce rce(s) Supporting Document(s) Progress Note [facility] HPFHKu6rEbXJJvYb21/SZQsrMICni1LjKBkvIMd7OObeLXZsA0IeUQW2kX7tGXY8UTiJTcZlSwHdRWRs lbm [file] ptESkC/AcP+rByOttDMw2EnMHrZy1ZgzoacWS+[employer] VP/L68K372WFZ41/2rFhwr6LPdj0CqEQYBDd4b27zk J9PfWkfui7q4anaquNgn39+qSRF42w1y4Jmzjt3+ppNol1t6WpG77/SQvIpNUl1mo5r9ODy1w8Kug66r hSKufnOlSZriGA6in1kkVAv7i25hPRCqg02SEjQn2O Nsqlf7zkpshm/6KyQ0mku5n6FTY2+oQ4ojQgsAL5oOZl1somb5IdcdQ+RuBQRtBDhC/ouarLbHaHmJvM nsWhqmJ/iKxnKYd6N77DUEgtWzchr+qw+tKcAV+TzwfP8Knx5VKo6hkGqs/8VotIFtdc3lJHix30pY4L kOkVfz6lFe+N/xjMIaot8O8eakemGd7413s1Im9u8p 7/57ZP/r052tae+fLQda1b5KI3c5HnnjRImzrPhd1w6+5M2qF5R+huB5+hJdAIcbsdHhzlaIEE/SkpBT 2tTvDxJw8rXtaKE1q5WTajiiogWgv1IiJTxO4QQJAQONgb8QPnc5qrTiwu8fP2ncQwuy/ha1Y2ytyLWr tYeSEq3yzhaNFcM7BDWE9DIPH4TI/mEud9aNTFtzlF eyCwl8QzLQ0I7FET1bRDe/l8hN8TreFx4JxAQTcCHD6oiogZD+GAUOGe2VOdcaggbZLjZNk1iES9UZkq FKqdoIFWFzWHgl/4UJaBOexlxfmEkhR4Ner8upk3u7nZoYkHBtFIt/SDSpUoCvqWUqz2TZwdfLC4L+6/ qYE4SUr8OZi2l/v9+9HccPSjlvar++A7ZQOy9T8EB7 7i/Hq02oomvQ0id42ngj7x72mklrCbIgi2j5yZCxSt4E4BqdgIgkOBLrVSp5HU1783j5A5e6LDwOSzms gtt8YacSY7oV/9/Bim0FMO+AVPUQt9uk/kZ8th3g1WRSjBaBWGJ+iPKMaf+aK/m5AsZmbEDF9zcxFAOY oWXC/XnkZ2CfWEV8UHWkoKdEFpJYY3LjUoS+keehbT B1M3fKfZ0NSdxZdQpJhShLWUsKjvHfzwBcMW9RWPVNsAlDeFd0Cn4pign1mTAbBbqh5CwOyHgBJdW/ruth [file] AgICAgICAgICAgICAgICAgICAgICAgICAgICAgICAg OEEoSLZeHYSdBTNvEFVuPEPrKNWfDSIjLWEqJWMlKRHpKPItWNQbDRPaBL7MVHXgMTYwYZRuFFLuOQPi ICAgICAgICAgICAgICAgICAgICAgICAgICAgICAgICAgICAgICAgICAgICAgICAgICAgICAgICAgICAg JIEzKGWkQDPrPKEyVCCtFGGfQQXdJLLqES2XXJEzTB AgICAgICAgICAgICAgICAgICAgICAgICAgICAgICAgICAgICAgICAgICAgICAgICAgICAgICAgICAgIC LrQNCcELUlPLEiIUKpBKZxHOYnRKXpRDUcZJTlGFSaTREoCE6KCTCyJJPpLVDsAVHxGNLxZVLvMALoXN AgICAgICAgICAgICAgICAgICAgICAgICAgICAgICAg LYHhCXNoSSYqOKLnDDHgVYQuXYZgCFGbYQFdYGBpCORvSKDnEFUaENFcULQjAW0BYOMkDQPsXAEtVXTx ICAgICAgICAgICAgICAgICAgICAgICAgICAgICAgICAgICAgICAgICAgICAgICAgICAgICAgICAgICAg PSIcTNKgZSMhIMSzLZNaGDQySDJgVXScFNEzOC7KPG AgICAgICAgICAgICAgICAgICAgICAgICAgICAgICAgICAgICAgICAgICAgICAgICAgICAgICAgICAgIC ZkGKKsZAVvEAXhBBNrCNHlWBErPMNmBYTwIKAsSWHeRWUwOKWxKV9VGQYzOBViRUHcNYNyVBGfHLEnYR AgICAgICAgICAgICAgICAgICAgICAgICAgICAgICAg FHCyUCWeDBXhKHBaHOYuCIGqPLEqGHSaMFJaODXxJYUeGOWpSLZbCEKxFKIcWRPhZW4EZYLsWLSyCQVv ICAgICAgICAgICAgICAgICAgICAgICAgICAgICAgICAgICAgICAgICAgICAgICAgICAgICAgICAgICAg ICAgICAgICAgICAgICAgICAgICAgICAgICAgICAgIA 0KICAgICAgICAgICAgICAgICAgICAgICAgICAgICAgICAgICAgICAgICAgICAgICAgICAgICAgICAgIC XkCTHgFOIyKFOxQILuIGZuOKNqJSPnNDGvOOVtJZWjIHQcNRNgGLUbOE5OGCQqQYDzJBLmSSQbLSRlXT AgICAgICAgICAgICAgICAgICAgICAgICAgICAgICAg MNOoXEAxNBLuJWUpKSSiJNEdHYOaDUIyPDDyFPPqESRoXSVhFSZlPRGyTQUeOOBqGFQvGF1CQQ70qHKq e2D2PANqLF6xruw/Zq3VXNkgyiZsjXZuTJ8NEnWdLP9ijq4ASvQiJD1uun5MDCkIXrXeJ1L2aREqMCYz BMBKJcPcI63cXGukGi43NWhfNFRfRdKsPOx6Nc1MEi GwU5rvWUMjSvJ9VHReQyO9DNEtVfIwEZcpEL2Nj6QsaDRiWYf+Ey2MTZ3sy1UkHBtgIVNySR4cve4YEO cCJfVmD3ZwptL0WEMlBAElZl7ZRPAzVKRwjQVfLfGvPPAQKwYjU2PkwA57DPCVSf0+DQplbmRvYmoNCj AeCLRjm3DtKLo8BS8QVBFrBWx0aGQuVCMnB2Xmk5Yn Gh18PHMsAyqbDZWnhqZziEAZjYMggBupJWiwu4EgKRZENHRmgWZyWI37HeIzKrJdOCu9ToDpVO0jIZtc OL4XUOH9MEjuSCOoBBQbZ7zMBtNuISWbLfGnvRvbVQ7EFjRiP3ElgqOjcSHwAVZzXWGYEn0+DQplbmRv FjxDPqShFBWme4TbQAd6GW0JQXNhTCadPM8WAWReoH 2vNCymBB9IWbOyEDZcBTSHTvJcD10myQHlUYj2Z6WtPyCiUYLeAqvnOZKrQIoaWgByRMWgXkHcINkrRC 4+ID4+MMeyEW6VGBwalpGbUDOcSa5YREOjBZMtFR4iNYTeEGPuF3G5fLsrVAEOTeLwA3zfxbdwFK2dRK QbN632hXsyjpDuBJFzLRKbVq3YXXOaGAW0CTXdnOKp ZyFzFINVXYxbAS4HqRFyFXR3jY1qOQnwMCDiHTOjX7eEGnKuoAizFA80sSqpasXlyWEwYVk+Jb1JUU7e x2YdXXa2efHzIBiaLWN9VOnsURYqYIEaQPRhVWG4ZZK0JFPKDcFcIBOcHUZwAUtxZOSgKQPmrp2LWSJn MDAzMTQwNCAwMDAwMCBuDQowMDAwMDMzMTIzIDAwMD CmJD3ECsDjZQKyWAGgCTjoBWBzRBUebm6ORQNxWSQzVVg2XKNoFBRoXANeKVolYJRnSUJ8RRQ0YWOgKF SfVQ6OSfOzVYMrQMZ8WcHgZCBzWHEcyr7KDWMwUYTeRsMxUHSqYPSqLUEbXSqoOLPhXNH4SHd9RGJiUN KlVN4ARfDqPWRfTVn9NMNqAJJtWXNhdt0LQHPgXDIg Aba4LLJiDCArDBKeQTleFGAxCDA3FGXqMUFfNAVvTZ3HEjBdKYXhJQidLpOfPJYaDKXhpe9LTVRrRARx LFRkHBGoIHBgJXSmHSdiFEVnYORtOKDsWIJxAIUmDN1LUgNfDXAnVxU4LxFoWJXrGYVdem5FWBWxYEUk SJh4IfPfSINmVDCbNQqrXTOfSVHqCbU6GNEvEHIcUU 6YOhDxJOFnYiSeMGWyNZAqIGHeuj6VUAShNCCsELz9CjXeKRVeDYVyDRdeLDOpEADeMxV1JLWiWPUuFJ 5CJkJzRRUdKpVaSVhzXDHuCHHfzv6NAXQdVWCmMpE3ZFAfGBSzUDNmEBk2liEyyRNvAPo5GS1IF0Ipmz TtPhLANq5Cg312KXLnGVHsXn9WO8mbNm7rJFKyCNAB Hx3VSHd2UxKpRWbiUYA9LJYlFSfuK7AwPhA6CMZcEkU7AANqCLs+IZy3McU8I5MmIqm2LvOsYVBbUlY3 AAwdXTMdOuc0QeSkLD1iMVBOWe2+GUdjfGLyfGgiFXIFXgKaHoi0HBikIUGJMb6G ID Date Data Source [id number] 05/21/2020 11:37:38 PM EDT [facility] Name Value Range Interpretation Code Description Data Joyce rce(s) Supporting Document(s) Progress Note [facility] PWUBRp3lLvKUQgKm83/GSHugOKCeh3BrWSpmZCj7MXrgJJPhA0EbQWC7hX0qJTL4HBxZOcPmGsYhLYIm lbm [file] N9KxHrZoVxMHH4XdV5N0M+BF1nYAx+Bf0Ec7ByuyS9ikBjVVs6BPN8XE0AOLLWU5AHKq== ID Date Data Source [id number] 05/20/2020 10:08:05 AM EDT [facility] Name Value Range Interpretation Code Description Data Joyce rce(s) Supporting Document(s) Progress Note [facility] TUYRQd1gBfYSZcVy11/ZAYrxOHGcq7VhATylMOb1XSasXPQnP3QhGHR0aM3rBAP4MQsAYdXwFxDyYKFt lbm [file] oKNF0ubqwTV54HQ9E/Ym3/Xe7TyvBq/hrarJMoa/Passenger [employer] [file] /Kulef53Jb5sl7nQMhy9JxXue+VrYlNaCSXQH9h6/svp innovation partnerships/NoBwNbWi2j2NY7el+ie2dgwipr61Pzkazy00 [file] P7EyVZF2ZSOeGWZbQFrbAoIcWb5sPHLSFv2+BKlsoKUvrNrbETBIIng8UMO4OZuvRQPQVm0Q ID Date Data Source [id number] 05/16/2020 01:58:51 PM EDT [facility] Name Value Range Interpretation Code Description Data Joyce rce(s) Supporting Document(s) Progress Note [facility] NEBCMr2qSiGPCwXv28/XOOszSQQng0IrXQgbVJq1MXpoCAAjI5LlKGN3aJ4mEPB0IQgISiDqUrDyMLX2 lbm [file] ICAgICAgICAgICAgICAgICAgICAgICAgICAgICAgICAgICAgICAgICAgICAgICAgICAgICAgICAgICAg ICAgICAgICAgICAgICAgICAgICAgICAgICAgICAgIC AgICAgDQogICAgICAgICAgICAgICAgICAgICAgICAgICAgICAgICAgICAgICAgICAgICAgICAgICAgIC AgICAgICAgICAgICAgICAgICAgICAgICAgICAgICAgICAgICAgICAgICAgICAgDQogICAgICAgICAgIC AgICAgICAgICAgICAgICAgICAgICAgICAgICAgICAg ICAgICAgICAgICAgICAgICAgICAgICAgICAgICAgICAgICAgICAgICAgICAgICAgICAgICAgICAgDQog ICAgICAgICAgICAgICAgICAgICAgICAgICAgICAgICAgICAgICAgICAgICAgICAgICAgICAgICAgICAg ICAgICAgICAgICAgICAgICAgICAgICAgICAgICAgIC AgICAgICAgDQogICAgICAgICAgICAgICAgICAgICAgICAgICAgICAgICAgICAgICAgICAgICAgICAgIC AgICAgICAgICAgICAgICAgICAgICAgICAgICAgICAgICAgICAgICAgICAgICAgICAgDQogICAgICAgIC AgICAgICAgICAgICAgICAgICAgICAgICAgICAgICAg ICAgICAgICAgICAgICAgICAgICAgICAgICAgICAgICAgICAgICAgICAgICAgICAgICAgICAgICAgICAg DQogICAgICAgICAgICAgICAgICAgICAgICAgICAgICAgICAgICAgICAgICAgICAgICAgICAgICAgICAg ICAgICAgICAgICAgICAgICAgICAgICAgICAgICAgIC AgICAgICAgICAgDQogICAgICAgICAgICAgICAgICAgICAgICAgICAgICAgICAgICAgICAgICAgICAgIC AgICAgICAgICAgICAgICAgICAgICAgICAgICAgICAgICAgICAgICAgICAgICAgICAgICAgDQogICAgIC AgICAgICAgICAgICAgICAgICAgICAgICAgICAgICAg ICAgICAgICAgICAgICAgICAgICAgICAgICAgICAgICAgICAgICAgICAgICAgICAgICAgICAgICAgICAg ICAgDQogICAgICAgICAgICAgICAgICAgICAgICAgICAgICAgICAgICAgICAgICAgICAgICAgICAgICAg ICAgICAgICAgICAgICAgICAgICAgICAgICAgICAgIC DzHVVnSFPzJRGeSFSyCGq4H7ngUHYkRFSsJC8fQUt0Mv7+IHmGQnAzVQK6hvYjfK2DRU5dc1FdAQqhOG Yhf9ZsTCo0KR1LDPHbVAhhAO2HNFgjmc2AAWWsOZZjhKUTn0kvGkPlRZN0TZTgOhipSM9LUGLxB1hpow DiXJHsNWEHDE2IXzTpD9VytK99RBPORp1+DQplbmRv DwlHSbM5ZRCsc6BaVVb6SH2DZFAySzknm8SvZgVkMXSGEOoqQL5SYSZ5NOOpQNDeCe9GFNCnL701mgNx SR0WHj1TAiJgWC3csu7ILsDmHQBsYczLHdl6XRyiJP1VoEZgZOhQua7rytCklkAHy6SptcEmhFKJMUGu dvNULOwaf1fecgLLJQecvYX6AQKZQGHNMBR8ZFBgYx xtDqBhIPFhNRt6JPITEHySBeJwP4Tyn1BtPtI3ZAWzLgNbEUekIJKvRbF8AH67uXuaCI0QTSHmRDSfKQ 66TTI5ZQWwNn6BEo7OHgWyQL9kkh9QDtOwPQWjDuhVGef2BWifFQ9XiWNjS5WphEHel4xKRjDnF5IWCI D3YQKuWe6NWZMaBsKnLNQkQRokTW0nFJYsRPSCzQxv xrD7LO0CYD7zblHbWM2QQiRlMd5bHh6MJbAiV5FtZ1ZbJMWjKRVPGFjjKU5WGMijWC5bWU2Bx6RYkEMl uC4nga6OGGGcONWuAlyvua2ORpqiH4K9qQdvTLPqKBkgPJPZVCuoHB8JPZOgEXB5RVYwMULrLWCSEpJk M33aTK3WJ3Ace85pEaH0RSSlFwZnIWhgIY76jZxydz XerPOhuRbhGX8IDe8+LFddllZpUmkPQxbxUYPVOpMzMiDUKeEwJOBeKQOhHSQbIyN7QyChJc0JYKUqME QaVGYaKvZuGXMgWVOzFZavHAMgMGF7KUfaPPJlBJBeIV3IKpKeFRUbYMn3WGCdETFeELHpuy0DWGYgVW OdGGI5YmHfWHXyJBHqHSupVBZkNRGbCaY3AFIvWJIv CR3BSiCcOLQyYEZ4AYTaBFYpOFDiyn5GAEKuJWJxSsy1YbAsNLRlMJHbRKwkKQAmDTS5TGL0UDGuGTDz PU2MBxYeBCUaCNLqXPxjOWJpDOXeqt1JIMEzHCPjAODkVqWeDPFnUOQcEQubZFJjGKI3SYD1VRKzQSTl YM2WEwCvWLUoATW8FJFeUNXpVISwjl5AKBChGGMbKr r5GZBxYJBnEAFcEAclEHUbGBO7DnF2ERUxMRZsGP4EXiKvRAOwQMs4FfOkDCYlRUEeda0GRWVcVLAhDq xdHNKyXLOpMSLiFCewXUQqFQM0OEZfFENkPIUwAR9VXqRxMEJoRTsfBvXySUEtGGFfth3QXQYoOMUtYC E2VJMbBCBsJPPrGUwnRFDbRJM3KlnlOYMjFDHlLF3Y VeYlUFWcLPc1PelbGFKhHBUjst0DuXNrkXpjuq7YAShYDw9ErFhdMYLrCAfiMe3vlMLxLLZnOELZLy1S xgXvHBVoHYGFZPwuHGWhLMQ4QLJqTqJbRImqRdtkYAQ9UnOgMWCyX2AkTCrwEiy6JeD5PWk3JVZ1AZDk FMUeS4M9XFufOsVqTLStEUTvI3WhBuq+QT2nVDp+Hw1Zt8JbtsJ7vtAjSObmZDE0Oy1IBHIRX9EEYb== Procedure Social History Code Duration Value Status Description Data Source(s ) Smoking 07/10/2021 12:00:00 AM EST Current Smoker completed Curre nt Smoker eCW1 ([facility]) Alcohol intake 06/27/2021 12:00:00 AM EST Ex-drinker (finding) comp leted Ex- drinker (finding) [facility] Smoking 06/19/2021 12:00:00 AM EST Current Smoker completed Curre nt Smoker eCW1 ([facility]) Smoking 06/19/2021 12:00:00 AM EST Current Smoker completed Curre nt Smoker eCW1 ([facility]) Smoking 06/06/2021 12:00:00 AM EDT Current Smoker completed Curre nt Smoker eCW1 ([facility]) Alcohol intake 04/22/2021 12:00:00 AM EDT Ex-drinker (finding) comp leted Ex- drinker (finding) [facility] Alcohol intake 04/02/2021 12:00:00 AM EDT Ex-drinker (finding) comp leted Ex- drinker (finding) [facility] Alcohol intake 01/09/2021 12:00:00 AM EDT Ex-drinker (finding) comp leted Ex- drinker (finding) [facility] Smoking 12/31/2020 12:00:00 AM EDT Current Smoker completed Curre nt Smoker eCW1 ([facility]) Smoking 12/31/2020 12:00:00 AM EDT Current Smoker completed Curre nt Smoker eCW1 ([facility]) Smoking 12/31/2020 12:00:00 AM EDT Current Smoker completed Curre nt Smoker eCW1 ([facility]) Alcohol intake 12/27/2020 12:00:00 AM EDT Ex-drinker (finding) comp leted Ex- drinker (finding) [facility] Smoking 12/24/2020 12:00:00 AM EDT Current Smoker completed Curre nt Smoker eCW1 ([facility]) Smoking 12/17/2020 12:00:00 AM EDT Current Smoker completed Curre nt Smoker eCW1 ([facility]) Smoking 12/03/2020 12:00:00 AM EDT Current Smoker completed Curre nt Smoker eCW1 ([facility]) Alcohol intake 11/28/2020 12:00:00 AM EDT Ex-drinker (finding) comp leted Ex- drinker (finding) [facility] Alcohol intake 10/17/2020 12:00:00 AM EST Ex-drinker (finding) comp leted Ex- drinker (finding) [facility] Alcohol intake 10/02/2020 12:00:00 AM EST Ex-drinker (finding) comp leted Ex- drinker (finding) [facility] Alcohol intake 09/24/2020 12:00:00 AM EST Ex-drinker (finding) comp leted Ex- drinker (finding) [facility] Alcohol intake 09/10/2020 12:00:00 AM EST Ex-drinker (finding) comp leted Ex- drinker (finding) [facility] Alcohol intake 09/04/2020 12:00:00 AM EST Ex-drinker (finding) comp leted Ex- drinker (finding) [facility] Alcohol intake 08/08/2020 12:00:00 AM EST Ex-drinker (finding) comp leted Ex- drinker (finding) [facility] Alcohol intake 07/18/2020 12:00:00 AM EST Ex-drinker (finding) comp leted Ex- drinker (finding) [facility] Alcohol intake 07/09/2020 12:00:00 AM EST Ex-drinker (finding) comp leted Ex- drinker (finding) [facility] Smoking 07/01/2020 12:00:00 AM EST Current Smoker completed Curre nt Smoker eCW1 ([facility]) Smoking 07/01/2020 12:00:00 AM EST Current Smoker completed Curre nt Smoker eCW1 ([facility]) Smoking 07/01/2020 12:00:00 AM EST Current Smoker completed Curre nt Smoker eCW1 ([facility]) Smoking 07/01/2020 12:00:00 AM EST Current Smoker completed Curre nt Smoker eCW1 ([facility]) Smoking 07/01/2020 12:00:00 AM EST Current Smoker completed Curre nt Smoker eCW1 ([facility]) Alcohol intake 06/27/2020 12:00:00 AM EST Ex-drinker (finding) comp leted Ex- drinker (finding) [facility] Alcohol intake 06/06/2020 12:00:00 AM EDT Ex-drinker (finding) comp leted Ex- drinker (finding) [facility] Vital Signs ID Date Data Source UNK Name Value Range Interpretation Code Description Data Source(s) Body weight 187 [lb_av] 187 [lb_av] eCW1 ([facility]) Body weight 84.82 kg 84.82 kg eCW1 ([facility]) Body height 63.5 [in_i] 63.5 [in_i] eCW1 ([facility]) Body mass index (BMI) [Ratio] 32.60 kg/m2 32.60 kg/m2 W1 ([facility]) Heart rate 100 /min 100 /min eCW1 ([facility]) Respiratory rate 20 /min 20 /min eCW1 ([facility]) Body temperature 96.7 [degF] 96.7 [degF] eCW1 ( [facility]) Systolic blood pressure 114 mm[Hg] 114 mm[Hg] e CW1 ([facility]) Diastolic blood pressure 63 mm[Hg] 63 mm[Hg] eCW1 ([facility]) Body weight 187 [lb_av] 187 [lb_av] eCW1 ([facility]) Body height 63.5 [in_i] 63.5 [in_i] eCW1 ([facility]) Body mass index (BMI) [Ratio] 32.60 kg/m2 32.60 kg/m2 W1 ([facility]) Heart rate 76 /min 76 /min eCW1 ([facility]) Respiratory rate 20 /min 20 /min eCW1 ([facility]) Body temperature 97.6 [degF] 97.6 [degF] eCW1 ( [facility]) Systolic blood pressure 118 mm[Hg] 118 mm[Hg] e CW1 ([facility]) Diastolic blood pressure 79 mm[Hg] 79 mm[Hg] eCW1 ([facility]) Diastolic blood pressure 75 mm[Hg] 75 mm[Hg] REZA ([facility]) Body height 63 [in_i] 63 [in_i] REZA ([facility]) Body mass index (BMI) [Ratio] 32.3 kg/m2 32.3 k g/m2 REZA ([facility]) Systolic blood pressure 114 mm[Hg] 114 mm[Hg] A THEN ([facility]) Body weight 2916 [oz_av] 2916 [oz_av] REZA ([facility]) Body weight 187 [lb_av] 187 [lb_av] eCW1 ([facility]) Body height 63.5 [in_i] 63.5 [in_i] eCW1 ([facility]) Diastolic blood pressure 80 mm[Hg] 80 mm[Hg] eCW1 ([facility]) Body mass index (BMI) [Ratio] 32.6 kg/m2 32.6 k g/m2 eCW1 ([facility]) Systolic blood pressure 124 mm[Hg] 124 mm[Hg] e CW1 ([facility]) Body height 63 [in_i] 63 [in_i] REZA ([facility]) Body height 63 [in_i] 63 [in_i] REZA ([facility]) Diastolic blood pressure 86 mm[Hg] 86 mm[Hg] REZA ([facility]) Body height 63 [in_i] 63 [in_i] REZA ([facility]) Systolic blood pressure 127 mm[Hg] 127 mm[Hg] A THENA ([facility]) Diastolic blood pressure 86 mm[Hg] 86 mm[Hg] REZA ([facility]) Body height 63 [in_i] 63 [in_i] REZA ([facility]) Systolic blood pressure 127 mm[Hg] 127 mm[Hg] A THENA ([facility]) Body height 63 [in_i] 63 [in_i] REZA ([facility]) Systolic blood pressure 127 mm[Hg] 127 mm[Hg] A THENA ([facility]) Diastolic blood pressure 86 mm[Hg] 86 mm[Hg] REZA ([facility]) Body temperature 98.0 [degF] 98.0 [degF] eCW1 ( [facility]) Systolic blood pressure 118 mm[Hg] 118 mm[Hg] e CW1 ([facility]) Diastolic blood pressure mm[Hg] eCW1 ([facility]) Body weight 174 [lb_av] 174 [lb_av] eCW1 ([facility]) Body weight kg eCW1 ([facility]) Body height 63.5 [in_i] 63.5 [in_i] eCW1 ([facility]) Body mass index (BMI) [Ratio] 30.34 kg/m2 30.34 kg/m2 eCW1 ([facility]) Heart rate 112 /min 112 /min eCW1 ([facility]) Respiratory rate 20 /min 20 /min eCW1 ([facility]) Body weight 172 [lb_av] 172 [lb_av] eCW1 ([facility]) Body height 63.5 [in_i] 63.5 [in_i] eCW1 ([facility]) Body mass index (BMI) [Ratio] 29.99 kg/m2 29.99 kg/m2 eCW1 ([facility]) Heart rate 106 /min 106 /min eCW1 ([facility]) Respiratory rate 18 /min 18 /min eCW1 ([facility]) Body temperature 92 [degF] 92 [degF] eCW1 ([facility]) Systolic blood pressure 158 mm[Hg] 158 mm[Hg] e CW1 ([facility]) Diastolic blood pressure 78 mm[Hg] 78 mm[Hg] eCW1 ([facility]) Body weight 172 [lb_av] 172 [lb_av] eCW1 ([facility]) Body height 63.5 [in_i] 63.5 [in_i] eCW1 ([facility]) Body mass index (BMI) [Ratio] 29.99 kg/m2 29.99 kg/m2 eCW1 ([facility]) Heart rate 103 /min 103 /min eCW1 ([facility]) Respiratory rate 16 /min 16 /min eCW1 ([facility]) Body temperature 98.1 [degF] 98.1 [degF] eCW1 ( [facility]) Systolic blood pressure 126 mm[Hg] 126 mm[Hg] e CW1 ([facility]) Diastolic blood pressure 73 mm[Hg] 73 mm[Hg] eCW1 ([facility]) Body weight 172 [lb_av] 172 [lb_av] eCW1 ([facility]) Body height 63.5 [in_i] 63.5 [in_i] eCW1 ([facility]) Body mass index (BMI) [Ratio] 29.99 kg/m2 29.99 kg/m2 eCW1 ([facility]) Heart rate 87 /min 87 /min eCW1 ([facility]) Respiratory rate 18 /min 18 /min eCW1 ([facility]) Body temperature 96.2 [degF] 96.2 [degF] eCW1 ( [facility]) Systolic blood pressure 128 mm[Hg] 128 mm[Hg] e CW1 ([facility]) Diastolic blood pressure 81 mm[Hg] 81 mm[Hg] eCW1 ([facility]) Body mass index (BMI) [Ratio] 29.8 kg/m2 29.8 k g/m2 REZA ([facility]) Systolic blood pressure 131 mm[Hg] 131 mm[Hg] A THENA ([facility]) Body weight 2694 [oz_av] 2694 [oz_av] REZA ([facility]) Diastolic blood pressure 81 mm[Hg] 81 mm[Hg] REZA ([facility]) Body height 63 [in_i] 63 [in_i] REZA ([facility]) Diastolic blood pressure 81 mm[Hg] 81 mm[Hg] REZA ([facility]) Body height 63 [in_i] 63 [in_i] REZA ([facility]) Body mass index (BMI) [Ratio] 29.8 kg/m2 29.8 k g/m2 REZA ([facility]) Systolic blood pressure 131 mm[Hg] 131 mm[Hg] A THENA ([facility]) Body weight 2694 [oz_av] 2694 [oz_av] REZA ([facility]) Diastolic blood pressure 81 mm[Hg] 81 mm[Hg] REZA ([facility]) Body height 63 [in_i] 63 [in_i] REZA ([facility]) Body mass index (BMI) [Ratio] 29.8 kg/m2 29.8 k g/m2 REZA ([facility]) Systolic blood pressure 131 mm[Hg] 131 mm[Hg] A THENA ([facility]) Body weight 2694 [oz_av] 2694 [oz_av] REZA ([facility]) Body weight 2694 [oz_av] 2694 [oz_av] REZA ([facility]) Diastolic blood pressure 81 mm[Hg] 81 mm[Hg] REZA ([facility]) Body height 63 [in_i] 63 [in_i] REZA ([facility]) Body mass index (BMI) [Ratio] 29.8 kg/m2 29.8 k g/m2 REZA ([facility]) Systolic blood pressure 131 mm[Hg] 131 mm[Hg] A THENA ([facility]) Diastolic blood pressure 87 mm[Hg] 87 mm[Hg] REZA ([facility]) Body height 63 [in_i] 63 [in_i] REZA ([facility]) Systolic blood pressure 131 mm[Hg] 131 mm[Hg] A THENA ([facility]) Body weight 2578 [oz_av] 2578 [oz_av] REZA ([facility]) Body mass index (BMI) [Ratio] 28.5 kg/m2 28.5 k g/m2 REZA ([facility]) Diastolic blood pressure 87 mm[Hg] 87 mm[Hg] REZA ([facility]) Body height 63 [in_i] 63 [in_i] REZA ([facility]) Body mass index (BMI) [Ratio] 28.5 kg/m2 28.5 k g/m2 REZA ([facility]) Systolic blood pressure 131 mm[Hg] 131 [facility] Body weight 2578 [oz_av] 2578 [oz_av] REZA ([facility]) Diastolic blood pressure 87 mm[Hg] 87 mm[Hg] REZA ([facility]) Body height 63 [in_i] 63 [in_i] REZA ([facility]) Body mass index (BMI) [Ratio] 28.5 kg/m2 28.5 k g/m2 REZA ([facility]) Systolic blood pressure 131 mm[Hg] 131 mm[Hg] A THENA ([facility]) Body weight 2578 [oz_av] 2578 [oz_av] REZA ([facility]) Diastolic blood pressure 87 mm[Hg] 87 mm[Hg] REZA ([facility]) Body height 63 [in_i] 63 [in_i] REZA ([facility]) Body mass index (BMI) [Ratio] 28.5 kg/m2 28.5 k g/m2 REZA ([facility]) Systolic blood pressure 131 mm[Hg] 131 mm[Hg] A THENA ([facility]) Body weight 2578 [oz_av] 2578 [oz_av] REZA ([facility]) Diastolic blood pressure 87 mm[Hg] 87 mm[Hg] REZA ([facility]) Body height 63 [in_i] 63 [in_i] REZA ([facility]) Body mass index (BMI) [Ratio] 28.5 kg/m2 28.5 k g/m2 REZA ([facility]) Systolic blood pressure 131 mm[Hg] 131 mm[Hg] A THENA ([facility]) Body weight 2578 [oz_av] 2578 [oz_av] REZA ([facility]) Diastolic blood pressure 87 mm[Hg] 87 mm[Hg] REZA ([facility]) Body height 63 [in_i] 63 [in_i] REZA ([facility]) Body mass index (BMI) [Ratio] 28.5 kg/m2 28.5 k g/m2 REZA ([facility]) Systolic blood pressure 131 mm[Hg] 131 mm[Hg] [facility] Body weight 2578 [oz_av] 2578 [oz_av] REZA ([facility]) Diastolic blood pressure 87 mm[Hg] 87 mm[Hg] REZA ([facility]) Body height 63 [in_i] 63 [in_i] REZA ([facility]) Systolic blood pressure 131 mm[Hg] 131 mm[Hg] A THENA ([facility]) Body weight 2578 [oz_av] 2578 [oz_av] REZA ([facility]) Body mass index (BMI) [Ratio] 28.5 kg/m2 28.5 k g/m2 REZA ([facility]) Diastolic blood pressure 90 mm[Hg] 90 mm[Hg] REZA ([facility]) Body height 63 [in_i] 63 [in_i] REZA ([facility]) Body mass index (BMI) [Ratio] 28.5 kg/m2 28.5 k g/m2 REZA ([facility]) Systolic blood pressure 119 mm[Hg] 119 mm[Hg] A THENA ([facility]) Body weight 2576 [oz_av] 2576 [oz_av] REZA ([facility]) Systolic blood pressure 119 mm[Hg] 119 mm[Hg] A THENA ([facility]) Body weight 2576 [oz_av] 2576 [oz_av] REZA ([facility]) Diastolic blood pressure 90 mm[Hg] 90 mm[Hg] REZA ([facility]) Body height 63 [in_i] 63 [in_i] REZA ([facility]) Body mass index (BMI) [Ratio] 28.5 kg/m2 28.5 k g/m2 REZA ([facility]) Diastolic blood pressure 90 mm[Hg] 90 mm[Hg] REZA ([facility]) Body height 63 [in_i] 63 [in_i] REZA ([facility]) Body mass index (BMI) [Ratio] 28.5 kg/m2 28.5 k g/m2 REZA ([facility]) Systolic blood pressure 119 mm[Hg] 119 mm[Hg] [facility] Body weight 2576 [oz_av] 2576 [oz_av] REZA ([facility]) Diastolic blood pressure 90 mm[Hg] 90 mm[Hg] REZA ([facility]) Body height 63 [in_i] 63 [in_i] REZA ([facility]) Body mass index (BMI) [Ratio] 28.5 kg/m2 28.5 k g/m2 REZA ([facility]) Systolic blood pressure 119 mm[Hg] 119 mm[Hg] A THENA ([facility]) Body weight 2576 [oz_av] 2576 [oz_av] ERZA ([facility]) Diastolic blood pressure 90 mm[Hg] 90 mm[Hg] REZA ([facility]) Body height 63 [in_i] 63 [in_i] REZA ([facility]) Body mass index (BMI) [Ratio] 28.5 kg/m2 28.5 k g/m2 REZA ([facility]) Systolic blood pressure 119 mm[Hg] 119 mm[Hg] A THENA ([facility]) Body weight 2576 [oz_av] 2576 [oz_av] REZA ([facility]) Diastolic blood pressure 90 mm[Hg] 90 mm[Hg] REZA ([facility]) Body height 63 [in_i] 63 [in_i] REZA ([facility]) Body mass index (BMI) [Ratio] 28.5 kg/m2 28.5 k g/m2 REZA ([facility]) Systolic blood pressure 119 mm[Hg] 119 mm[Hg] A THENA ([facility]) Body weight 2576 [oz_av] 2576 [oz_av] REZA ([facility]) Diastolic blood pressure 90 mm[Hg] 90 mm[Hg] REZA ([facility]) Body height 63 [in_i] 63 [in_i] REZA ([facility]) Body mass index (BMI) [Ratio] 28.5 kg/m2 28.5 k g/m2 REZA ([facility]) Systolic blood pressure 119 mm[Hg] 119 mm[facility]Hg] [facility] Body weight 2576 [oz_av] 2576 [oz_av] REZA ([facility]) Diastolic blood pressure 90 mm[Hg] 90 mm[Hg] REZA ([facility]) Body height 63 [in_i] 63 [in_i] REZA ([facility]) Body mass index (BMI) [Ratio] 28.5 kg/m2 28.5 k g/m2 REZA ([facility]) Systolic blood pressure 119 mm[Hg] 119 mm[Hg] A THENA ([facility]) Body weight 2576 [oz_av] 2576 [oz_av] REZA ([facility]) Diastolic blood pressure 90 mm[Hg] 90 mm[Hg] REZA ([facility]) Body height 63 [in_i] 63 [in_i] REZA ([facility]) Body mass index (BMI) [Ratio] 28.5 kg/m2 28.5 k g/m2 REZA ([facility]) Systolic blood pressure 119 mm[Hg] 119 mm[Hg] A THENA ([facility]) Body weight 2576 [oz_av] 2576 [oz_av] REZA ([facility]) Diastolic blood pressure 90 mm[Hg] 90 mm[Hg] REZA ([facility]) Body height 63 [in_i] 63 [in_i] REZA ([facility]) Body mass index (BMI) [Ratio] 28.5 kg/m2 28.5 k g/m2 REZA ([facility]) Systolic blood pressure 119 mm[Hg] 119 mm[Hg] A THENA ([facility]) Body weight 2576 [oz_av] 2576 [oz_av] REZA ([facility]) ID Date Data Source [id number] 05/01/2021 05:15:15 PM EDT [facility] Name Value Range Interpretation Code Description Data Source(s) WEIGHT RECORDED 178 lb 178 lb [facility] ID Date Data Source [id number] 04/10/2021 04:45:54 PM EDT [facility] Value Range Interpretation Code Description Data Source(s) WEIGHT RECORDED 178.8 lb 178.8 lb [facility] ID Date Data Source [id number] 01/20/2021 02:46:54 PM EDT [facility] Value Range Interpretation Code Description Data Source(s) WEIGHT RECORDED 176 lb 176 lb [facility] ID Date Data Source [id number] 01/09/2021 03:20:43 PM EDT [facility] Value Range Interpretation Code Description Data Source(s) WEIGHT RECORDED 172.8 lb 172.8 lb [facility] ID Date Data Source [id number] 01/03/2021 10:07:50 AM EDT [facility] Value Range Interpretation Code Description Data Source(s) WEIGHT RECORDED 173 lb 173 lb [facility] ID Date Data Source [id number] 12/19/2020 03:13:51 PM EDT [facility] Name Value Range Interpretation Code Description Data Source(s) WEIGHT RECORDED 171 lb 171 lb [facility] ID Date Data Source [id number] 12/10/2020 12:35:09 PM EDT [facility] Name Value Range Interpretation Code Description Data Source(s) WEIGHT RECORDED 172 lb 172 lb [facility] Body height Measured 63 in 63 in [facility] ID Date Data Source [id number] 12/04/2020 06:55:32 AM EDT [facility] Value Range Interpretation Code Description Data Source(s) WEIGHT RECORDED 171 lb 171 lb [facility] ID Date Data Source [id number] [facility] Interpretation Code Description Data Source(s) WEIGHT RECORDED 164 lb 164 lb [facility] Body height Measured 63 in 63 in [facility] ID Date Data Source [id number] 10/03/2020 06:34:57 PM [facility] Name Value Range Interpretation Code Description Data Source(s) WEIGHT RECORDED 155 lb 155 lb [facility] Body height Measured 63 in 63 in [facility] WEIGHT RECORDED 157 lb 157 lb [facility] Body height Measured 63 in 63 in [facility] ID Date Data Source [id number] 09/25/2020 10:17:45 PM [facility] Name Value Range Interpretation Code Description Data Source(s) WEIGHT RECORDED 157 lb 157 lb [facility] Body height Measured 63 in 63 in [facility] ID Date Data Source [id number] 09/12/2020 12:42:36 PM [facility] Value Range Interpretation Code Description Data Source(s) WEIGHT RECORDED 159 lb 159 lb [facility] Body height Measured 62.99 in 62.99 in [facility] ID Date Data Source [id number] 09/09/2020 05:32:00 PM [facility] Name Value Range Interpretation Code Description Data Source(s) WEIGHT RECORDED 158 lb 158 lb [facility] ID Date Data Source [id number] 08/23/2020 10:22:37 AM [facility] Value Range Interpretation Code Description Data Source(s) WEIGHT RECORDED 154 lb 154 lb [facility] ID Date Data Source [id number] 08/15/2020 05:08:38 PM [facility] Name Value Range Interpretation Code Description Data Source(s) WEIGHT RECORDED 157.4 lb 157.4 lb [facility] ID Date Data Source [id number] 08/13/2020 11:58:09 AM [facility] Name Value Range Interpretation Code Description Data Source(s) WEIGHT RECORDED 158 lb 158 lb [facility] ID Date Data Source [id number] 07/26/2020 04:19:54 PM [facility] Name Value Range Interpretation Code Description Data Source(s) WEIGHT RECORDED 157 lb 157 lb [facility] ID Date Data Source [id number] 07/11/2020 05:31:09 PM [facility] Name Value Range Interpretation Code Description Data Source(s) WEIGHT RECORDED 157 lb 157 lb [facility] Body height Measured 62.99 in 62.99 in [facility] ID Date Data Source [id number] 07/03/2020 05:04:20 PM [facility] Value Range Interpretation Code Description Data Source(s) WEIGHT RECORDED 156.2 lb 156.2 lb [facility] ID Date Data Source [id number] 07/13/2020 04:41:11 PM [facility] Value Range Interpretation Code Description Data Source(s) WEIGHT RECORDED 157 lb 157 lb [facility] ID Date Data Source [id number] 07/01/2020 02:37:42 PM [facility] Value Range Interpretation Code Description Data Source(s) WEIGHT RECORDED 156 lb 156 lb [facility] Body height Measured 63 in 63 in [facility] ID Date Data Source [id number] 06/13/2020 01:04:12 PM [facility] Value Range Interpretation Code Description Data Source(s) WEIGHT RECORDED 157.4 lb 157.4 lb [facility] ID Date Data Source [id number] 06/18/2020 07:18:22 AM [facility] Value Range Interpretation Code Description Data Source(s) WEIGHT RECORDED 159.6 lb 159.6 lb [facility] ID Date Data Source [id number] 05/20/2020 10:08:05 AM EDT [facility] Value Range Interpretation Code Description Data Source(s) WEIGHT RECORDED 150 lb 150 lb [facility] Body height Measured 62.99 in 62.99 in [facility] Patient Treatment Plan of Care Planned Activity Planned Date Details Description Data Source (s) pregabalin 200 MG Oral Capsule 06/24/2021 12:00:00 AM [facility] Clobetasol Propionate 0.0005 MG/MG Topical Ointment 06/06/20 12:00:00 AM EDT eC1 ([facility]) Nystatin 925294 UNT/ML Topical Cream 05/16/2021 12:00:00 AM [facility] Trazodone Hydrochloride 100 MG Oral Tablet 05/01/2021 12:00:00 AM E [facility] letrozole 2.5 MG Oral Tablet 04/04/2021 12:00:00 AM [facility] gabapentin 600 MG Oral Tablet 03/19/2021 12:00:00 AM [facility] buspirone hydrochloride 15 MG Oral Tablet 03/19/2021 12:00:00 AM ED [facility] Trazodone Hydrochloride 100 MG Oral Tablet 03/19/2021 12:00:00 AM E [facility] Cholecalciferol 2000 UNT Oral Capsule 03/03/2021 12:00:00 AM [facility] Fluocinonide 0.5 MG/ML Topical Cream 01/15/2021 12:00:00 AM [facility] Oxycodone Hydrochloride 10 MG Oral Tablet 01/02/2021 12:00:00 AM [facility] Albuterol Sulfate HFA 108 (90 Base) MCG/ ACT Inhalation Aerosol Solution (PROVENTIL HFA) 12/20/2020 12:00:00 AM [facility] Misc. Devices (DURABLE MEDICAL EQUIPMENT SEE SIG) XX M ISC 10/17/2020 12:00:00 AM [facility] ospital oxyCODONE HCl 10 MG 10/08/2020 12:00:00 AM EST [facility] ([facility]) Vitamin D3 25 MCG 10/07/2020 12:00:00 [facility] Venlafaxine HCl ER 150 MG 10/07/2020 12:00:00 AM EST [facility] ([facility]) Topiramate 100 MG 10/07/2020 12:00:00 AM EST [facility] ([facility]) One A Day Vitamin 10/07/2020 12:00:00 AM EST [facility] ([facility]) Ondansetron HCl 8 MG 10/07/2020 12:00:00 AM EST [facility] ([facility]) Methadone HCl 5 MG 10/07/2020 12:00:00 AM EST [facility] ([facility]) Loperamide HCl 2 MG 10/07/2020 12:00:00 AM [facility] ([facility]) Hydrocortisone 2.5 % 10/07/2020 12:00:00 AM [facility] ([facility]) Gabapentin 400 MG 10/07/2020 12:00:00 AM [facility]) Diphenoxylate-Atropine 2.5-0.025 MG 10/07/2020 12:00:00 AM [facility]) B Complex 10/07/2020 12:00:00 AM [facility] [place]) Acetaminophen 10/07/2020 12:00:00 AM [facility] ([facility]) OxyCODONE HCl 5 MG 10/07/2020 12:00:00 AM [facility]) Fluconazole 150 MG Oral Tablet 09/04/2020 12:00:00 AM [facility] 24 HR venlafaxine 150 MG Extended Release Oral Capsule 07/29/2020 12:00:00 AM [facility] Atropine Sulfate 0.025 MG / Diphenoxylate Hydrochlorid e 2.5 MG Oral Tablet 06/27/2020 12:00:00 AM [facility] Loperamide Hydrochloride 2 MG Oral Tablet 06/20/2020 12:00:00 AM [facility] Hydrocortisone 25 MG/ML Topical Cream 06/13/2020 12:00:00 AM [facility] maalox/lidocaine/diphenhydrAMINE 1:1:1 SWISH & SWAL or al suspension 06/08/2020 12:00:00 AM [facility] Ondansetron 8 MG Oral Tablet 06/06/2020 12:00:00 AM [facility] Methadone Hydrochloride 5 MG Oral Tablet 06/01/2020 12:00:00 AM [facility] Nicotine 2 MG Oral Lozenge 05/15/2020 12:00:00 AM [facility] 24 HR Nicotine 0.875 MG/HR Transdermal Patch 05/15/2020 12:00:00 AM [facility] gabapentin 400 MG Oral Capsule 05/10/2020 12:00:00 AM [facility] B Complex Oral Capsule 05/10/2020 12:00:00 AM [facility] duloxetine 30 MG Delayed Release Oral Capsule 04/24/2020 12:00:00 A M [facility] Loratadine 10 MG Oral Tablet 04/11/2020 12:00:00 AM [facility] pregabalin 100 MG Oral Capsule 04/03/2020 12:00:00 AM [facility] Acyclovir 400 MG Oral Tablet 04/03/2020 12:00:00 AM [facility] Hydroxyzine Hydrochloride 25 MG Oral Tablet 04/01/2020 12:00:00 AM [facility] 24 HR venlafaxine 37.5 MG Extended Release Oral Capsul e 04/01/2020 12:00:00 AM [facility] Naproxen 500 MG Oral Tablet 03/25/2020 12:00:00 AM [facility] Oxybutynin chloride 5 MG Oral Tablet 03/14/2020 12:00:00 AM [facility] Ondansetron 8 MG Oral Tablet 03/14/2020 12:00:00 AM [facility] Cholecalciferol 1000 UNT Oral Tablet 02/28/2020 12:00:00 AM [facility] Baclofen 10 MG Oral Tablet 02/26/2020 12:00:00 AM [facility] gabapentin 400 MG Oral Capsule RE[facility] ([facility]) fluticasone propionate 50 mcg/actuation nasal spray,suspension RE[facility] ([facility]) Fluconazole 150 MG Oral Tablet [facility] ([facility]) Fluconazole 100 MG Oral Tablet [facility] ([facility]) 24 HR venlafaxine 37.5 MG Extended Release Oral Capsule [Effexor] RE[facility] ([facility]) duloxetine 60 MG Delayed Release Oral Capsule RE[facility] ([facility]) duloxetine 30 MG Delayed Release Oral Capsule RE[facility] ([facility]) Atropine Sulfate 0.025 MG / Diphenoxylate Hydrochloride 2.5 MG O ral Tablet [facility] ([facility]) Ciprofloxacin 500 MG Oral Tablet RE[facility] ([facility]) Cholecalciferol 2000 UNT Oral Capsule RE[facility] ([facility]) Cholecalciferol 1000 UNT Oral Tablet [facility] ([facility]) cetirizine hydrochloride 10 MG Oral Tablet [facility] ([facility]) Cephalexin 500 MG Oral Capsule RE[facility] ([facility]) buspirone hydrochloride 10 MG Oral Tablet RE[facility] ([facility]) Baclofen 10 MG Oral Tablet A THENA ([facility]) Amoxicillin 875 MG / Clavulanate 125 MG Oral Tablet [facility] ([facility]) Amitriptyline Hydrochloride 25 MG Oral Tablet RE[facility] ([facility]) Acyclovir 400 MG Oral Tablet [facility] ([facility]) TRAZODONE HCL PO [facility] vitamin d3 25 mcg (1000 ut) tabs REZA ([facility]) topiramate 50 MG Oral Tablet REZA ([facility]) topiramate 25 MG Oral Tablet REZA ([facility]) tolterodine tartrate 2 MG Oral Tablet RE[facility] ([facility]) Sulfamethoxazole 800 MG / Trimethoprim 160 MG Oral Tablet RE[facility] ([facility]) Hydrocortisone 25 MG/ML Topical Cream [Proctozone HC] REZA ([facility]) pregabalin 75 MG Oral Capsule RE[facility] ([facility]) pregabalin 100 MG Oral Capsule REZA ([facility]) Phenazopyridine hydrochloride 200 MG Oral Tablet [facility] ([facility]) Oxybutynin chloride 5 MG Oral Tablet [facility] ([facility]) Nystatin 475380 UNT/ML Oral Suspension [facility] ([facility]) Nystatin 100 UNT/MG Topical Powder REZA ([facility]) 24 HR Nicotine 0.875 MG/HR Transdermal Patch REZA ([facility]) Nicotine 2 MG Chewing Gum AT [facility] ([facility]) Naproxen sodium 220 MG Oral Tablet [facility] ([facility]) Naproxen 500 MG Oral Tablet REZA ([facility]) Naproxen 250 MG Oral Tablet RE[facility] ([facility]) Lorazepam 0.5 MG Oral Tablet RE[facility] ([facility]) Loratadine 10 MG Oral Tablet RE[facility] ([facility]) Lidocaine 25 MG/ML / Prilocaine 25 MG/ML Topical Cream REZA ([facility]) lidoc/m dry/[facility] SWISH AND SWALLOW 10 ML EVERY 4 HOURS NEEDED REZA ([facility]) Levothyroxine Sodium 0.025 MG Oral Tablet RE[facility] ([facility]) Ketorolac Tromethamine 10 MG Oral Tablet RE[facility] ([facility]) Hydroxyzine Hydrochloride 25 MG Oral Tablet REZA ([facility]) Hydrocortisone 25 MG/ML Topical Cream REZA ([facility]) fluticasone propionate 50 mcg/actuation nasal spray,suspension REZA ([facility]) Fluconazole 150 MG Oral Tablet RE[facility] ([facility]) Fluconazole 100 MG Oral Tablet RE[facility] ([facility]) 24 HR venlafaxine 37.5 MG Extended Release Oral Capsule [Effexor] REZA ([facility]) duloxetine 60 MG Delayed Release Oral Capsule REZA ([facility]) duloxetine 30 MG Delayed Release Oral Capsule REZA ([facility]) Atropine Sulfate 0.025 MG / Diphenoxylate Hydrochloride 2.5 MG O ral Tablet RE[facility] ([facility]) Ciprofloxacin 500 MG Oral Tablet REZA ([facility]) Cholecalciferol 1000 UNT Oral Tablet REZA ([facility]) cetirizine hydrochloride 10 MG Oral Tablet REZA ([facility]) Cephalexin 500 MG Oral Capsule REZA ([facility]) Baclofen 10 MG Oral Tablet A THENA ([facility]) Amoxicillin 875 MG / Clavulanate 125 MG Oral Tablet REZA ([facility]) Amitriptyline Hydrochloride 25 MG Oral Tablet REZA ([facility]) Acyclovir 400 MG Oral Tablet REZA ([facility]) vitamin d3 25 mcg (1000 ut) tabs REZA ([facility]) topiramate 50 MG Oral Tablet REZA ([facility]) topiramate 25 MG Oral Tablet REZA ([facility]) tolterodine tartrate 2 MG Oral Tablet REZA ([facility]) Sulfamethoxazole 800 MG / Trimethoprim 160 MG Oral Tablet REZA ([facility]) Hydrocortisone 25 MG/ML Topical Cream [Proctozone HC] REZA ([facility]) pregabalin 75 MG Oral Capsule REZA ([facility]) pregabalin 100 MG Oral Capsule REZA ([facility]) Phenazopyridine hydrochloride 200 MG Oral Tablet REZA ([facility]) Oxybutynin chloride 5 MG Oral Tablet REZA ([facility]) Nystatin 410739 UNT/ML Oral Suspension REZA ([facility]) Nystatin 100 UNT/MG Topical Powder REZA ([facility]) 24 HR Nicotine 0.875 MG/HR Transdermal Patch REZA ([facility]) Nicotine 2 MG Chewing Gum AT [facility] ([facility]) Naproxen sodium 220 MG Oral Tablet REZA ([facility]) Naproxen 500 MG Oral Tablet REZA ([facility]) Naproxen 250 MG Oral Tablet REZA ([facility]) Lorazepam 0.5 MG Oral Tablet REZA ([facility]) Loratadine 10 MG Oral Tablet REZA ([facility]) Lidocaine 25 MG/ML / Prilocaine 25 MG/ML Topical Cream REZA ([facility]) lidoc/m dry/[facility] SWISH AND SWALLOW 10 ML EVERY 4 HOURS NEEDED REZA ([facility]) Levothyroxine Sodium 0.025 MG Oral Tablet REZA ([facility]) Ketorolac Tromethamine 10 MG Oral Tablet REZA ([facility]) Hydroxyzine Hydrochloride 25 MG Oral Tablet REZA ([facility]) Hydrocortisone 25 MG/ML Topical Cream REZA ([facility]) fluticasone propionate 50 mcg/actuation nasal spray,suspension REZA ([facility]) Fluconazole 150 MG Oral Tablet REZA ([facility]) Fluconazole 100 MG Oral Tablet REZA ([facility]) 24 HR venlafaxine 37.5 MG Extended Release Oral Capsule [Effexor] REZA ([facility]) duloxetine 60 MG Delayed Release Oral Capsule REZA ([facility]) duloxetine 30 MG Delayed Release Oral Capsule REZA ([facility]) Atropine Sulfate 0.025 MG / Diphenoxylate Hydrochloride 2.5 MG O ral Tablet RE[facility] ([facility]) Ciprofloxacin 500 MG Oral Tablet REZA ([facility]) Cholecalciferol 1000 UNT Oral Tablet REZA ([facility]) cetirizine hydrochloride 10 MG Oral Tablet REZA ([facility]) Cephalexin 500 MG Oral Capsule REZA ([facility]) Baclofen 10 MG Oral Tablet A THENA ([facility]) Amoxicillin 875 MG / Clavulanate 125 MG Oral Tablet REZA ([facility]) Amitriptyline Hydrochloride 25 MG Oral Tablet REZA ([facility]) Acyclovir 400 MG Oral Tablet REZA ([facility]) Vitamins B Complex capsule A THENA ([facility]) vitamin d3 50 mcg (2000 ut) tabs REZA ([facility]) vitamin d3 25 mcg (1000 ut) tabs REZA ([facility]) 24 HR venlafaxine 150 MG Extended Release Oral Capsule REZA ([facility]) topiramate 50 MG Oral Tablet REZA ([facility]) topiramate 25 MG Oral Tablet REZA ([facility]) tolterodine tartrate 2 MG Oral Tablet REZA ([facility]) Sulfamethoxazole 800 MG / Trimethoprim 160 MG Oral Tablet REZA ([facility]) Hydrocortisone 25 MG/ML Topical Cream [Proctozone HC] REZA ([facility]) pregabalin 75 MG Oral Capsule REZA ([facility]) pregabalin 100 MG Oral Capsule REZA ([facility]) Phenazopyridine hydrochloride 200 MG Oral Tablet REZA ([facility]) Oxycodone Hydrochloride 5 MG Oral Tablet REZA ([facility]) Oxybutynin chloride 5 MG Oral Tablet REZA ([facility]) Ondansetron 8 MG Oral Tablet RE[facility] ([facility]) Nystatin 310773 UNT/ML Oral Suspension REZA ([facility]) Nystatin 100 UNT/MG Topical Powder REZA ([facility]) Nystatin 074525 UNT/ML Topical Cream REZA ([facility]) 24 HR Nicotine 0.875 MG/HR Transdermal Patch REZA ([facility]) Nicotine 2 MG Chewing Gum AT [facility] ([facility]) Naproxen sodium 220 MG Oral Tablet REZA ([facility]) Naproxen 500 MG Oral Tablet REZA ([facility]) Naproxen 250 MG Oral Tablet REZA ([facility]) methylprednisolone 4 mg tablets in a dos e pack TAKE BY MOUTH PER PACKAGE INSTRUCTIONS REZA ([facility]) Lorazepam 0.5 MG Oral Tablet REZA ([facility]) Loratadine 10 MG Oral Tablet REZA ([facility]) Lidocaine 25 MG/ML / Prilocaine 25 MG/ML Topical Cream REZA ([facility]) Lidocaine Hydrochloride 20 MG/ML Mucous Membrane Topical Solution REZA ([facility]) lidoc/m dry/[facility] SWISH AND SWALLOW 10 ML EVERY 4 HOURS NEEDED REZA ([facility]) Levothyroxine Sodium 0.025 MG Oral Tablet REZA ([facility]) letrozole 2.5 MG Oral Tablet REZA ([facility]) Ketorolac Tromethamine 10 MG Oral Tablet REZA ([facility]) Hydroxyzine Hydrochloride 25 MG Oral Tablet REZA ([facility]) Hydrocortisone 25 MG/ML Topical Cream REZA ([facility]) SULFAMETHOXAZOLE-TRIMETHOPRIM [facility] vitamin d3 25 mcg (1000 ut) tabs REZA ([facility]) topiramate 50 MG Oral Tablet REZA ([facility]) topiramate 25 MG Oral Tablet REZA ([facility]) tolterodine tartrate 2 MG Oral Tablet REZA ([facility]) Sulfamethoxazole 800 MG / Trimethoprim 160 MG Oral Tablet REZA ([facility]) pregabalin 75 MG Oral Capsule REZA ([facility]) pregabalin 100 MG Oral Capsule REZA ([facility]) Phenazopyridine hydrochloride 200 MG Oral Tablet REZA ([facility]) Oxybutynin chloride 5 MG Oral Tablet REZA ([facility]) Nystatin [id number] UNT/ML Oral Suspension REZA ([facility]) 24 HR Nicotine 0.875 MG/HR Transdermal Patch REZA ([facility]) Nicotine 2 MG Chewing Gum AT [facility] ([facility]) Naproxen sodium 220 MG Oral Tablet REZA ([facility]) Naproxen 500 MG Oral Tablet REZA ([facility]) Naproxen 250 MG Oral Tablet REZA ([facility]) Lorazepam 0.5 MG Oral Tablet REZA ([facility]) Loratadine 10 MG Oral Tablet REZA ([facility]) lidoc/m dry/[facility] SWISH AND SWALLOW 10 ML EVERY 4 HOURS NEEDED REZA ([facility]) Levothyroxine Sodium 0.025 MG Oral Tablet REZA ([facility]) Ketorolac Tromethamine 10 MG Oral Tablet REZA ([facility]) Hydroxyzine Hydrochloride 25 MG Oral Tablet REZA ([facility]) fluticasone propionate 50 mcg/actuation nasal spray,suspension REZA ([facility]) Fluconazole 100 MG Oral Tablet REZA ([facility]) 24 HR venlafaxine 37.5 MG Extended Release Oral Capsule [Effexor] REZA ([facility]) duloxetine 60 MG Delayed Release Oral Capsule REZA ([facility]) Amoxicillin 875 MG / Clavulanate 125 MG Oral Tablet REZA ([facility]) Amitriptyline Hydrochloride 25 MG Oral Tablet REZA ([facility]) Acyclovir 400 MG Oral Tablet REZA ([facility]) duloxetine 60 MG Delayed Release Oral Capsule REZA ([facility]) duloxetine 30 MG Delayed Release Oral Capsule REZA ([facility]) Ciprofloxacin 500 MG Oral Tablet REZA ([facility]) cetirizine hydrochloride 10 MG Oral Tablet REZA ([facility]) Baclofen 10 MG Oral Tablet A THENA ([facility]) Amoxicillin 875 MG / Clavulanate 125 MG Oral Tablet REZA ([facility]) Amitriptyline Hydrochloride 25 MG Oral Tablet REZA ([facility]) Acyclovir 400 MG Oral Tablet REZA ([facility]) vitamin d3 25 mcg (1000 ut) tabs REZA ([facility]) topiramate 50 MG Oral Tablet REZA ([facility]) topiramate 25 MG Oral Tablet REZA ([facility]) tolterodine tartrate 2 MG Oral Tablet REZA ([facility]) Sulfamethoxazole 800 MG / Trimethoprim 160 MG Oral Tablet REZA ([facility]) pregabalin 75 MG Oral Capsule REZA ([facility]) pregabalin 100 MG Oral Capsule REZA ([facility]) Phenazopyridine hydrochloride 200 MG Oral Tablet REZA ([facility]) Oxybutynin chloride 5 MG Oral Tablet REZA ([facility]) Nystatin 529010 UNT/ML Oral Suspension REZA ([facility]) 24 HR Nicotine 0.875 MG/HR Transdermal Patch REZA ([facility]) Nicotine 2 MG Chewing Gum AT [facility] ([facility]) Naproxen sodium 220 MG Oral Tablet REZA ([facility]) Naproxen 500 MG Oral Tablet REZA ([facility]) Naproxen 250 MG Oral Tablet REZA ([facility]) Lorazepam 0.5 MG Oral Tablet REZA ([facility]) Loratadine 10 MG Oral Tablet REZA ([facility]) lidoc/m dry/[facility] SWISH AND SWALLOW 10 ML EVERY 4 HOURS NEEDED REZA ([facility]) Levothyroxine Sodium 0.025 MG Oral Tablet REZA ([facility]) Ketorolac Tromethamine 10 MG Oral Tablet REZA ([facility]) Hydroxyzine Hydrochloride 25 MG Oral Tablet REZA ([facility]) fluticasone propionate 50 mcg/actuation nasal spray,suspension REZA ([facility]) Fluconazole 100 MG Oral Tablet REZA ([facility]) 24 HR venlafaxine 37.5 MG Extended Release Oral Capsule [Effexor] REZA ([facility]) duloxetine 60 MG Delayed Release Oral Capsule REZA ([facility]) duloxetine 30 MG Delayed Release Oral Capsule REZA ([facility]) Ciprofloxacin 500 MG Oral Tablet REZA ([facility]) cetirizine hydrochloride 10 MG Oral Tablet REZA ([facility]) Baclofen 10 MG Oral Tablet A THENA ([facility]) Amoxicillin 875 MG / Clavulanate 125 MG Oral Tablet REZA ([facility]) Amitriptyline Hydrochloride 25 MG Oral Tablet REZA ([facility]) Acyclovir 400 MG Oral Tablet REZA ([facility]) vitamin d3 25 mcg (1000 ut) tabs REZA ([facility]) topiramate 50 MG Oral Tablet REZA ([facility]) topiramate 25 MG Oral Tablet REZA ([facility]) tolterodine tartrate 2 MG Oral Tablet REZA ([facility]) pregabalin 75 MG Oral Capsule REZA ([facility]) pregabalin 100 MG Oral Capsule REZA ([facility]) Phenazopyridine hydrochloride 200 MG Oral Tablet REZA ([facility]) Nystatin 947759 UNT/ML Oral Suspension REZA ([facility]) 24 HR Nicotine 0.875 MG/HR Transdermal Patch REZA ([facility]) Nicotine 2 MG Chewing Gum AT [facility] ([facility]) Naproxen sodium 220 MG Oral Tablet REZA ([facility]) Naproxen 500 MG Oral Tablet REZA ([facility]) Naproxen 250 MG Oral Tablet REZA ([facility]) Lorazepam 0.5 MG Oral Tablet REZA ([facility]) Loratadine 10 MG Oral Tablet REZA ([facility]) Levothyroxine Sodium 0.025 MG Oral Tablet REZA ([facility]) Ketorolac Tromethamine 10 MG Oral Tablet REZA ([facility]) Hydroxyzine Hydrochloride 25 MG Oral Tablet REZA ([facility]) Fluconazole 100 MG Oral Tablet REZA ([facility]) 24 HR venlafaxine 37.5 MG Extended Release Oral Capsule [Effexor] REZA ([facility]) duloxetine 60 MG Delayed Release Oral Capsule REZA ([facility]) duloxetine 30 MG Delayed Release Oral Capsule REZA ([facility]) Ciprofloxacin 500 MG Oral Tablet REZA ([facility]) cetirizine hydrochloride 10 MG Oral Tablet [facility] ([facility] [facility]) Baclofen 10 MG Oral Tablet A THENA ([facility]) Amoxicillin 875 MG / Clavulanate 125 MG Oral Tablet REZA ([facility]) Amitriptyline Hydrochloride 25 MG Oral Tablet REZA ([facility]) Acyclovir 400 MG Oral Tablet REZA ([facility]) vitamin d3 25 mcg (1000 ut) tabs REZA ([facility]) topiramate 50 MG Oral Tablet REZA ([facility]) topiramate 25 MG Oral Tablet REZA ([facility]) tolterodine tartrate 2 MG Oral Tablet REZA ([facility]) pregabalin 75 MG Oral Capsule REZA ([facility]) pregabalin 100 MG Oral Capsule REZA ([facility]) Phenazopyridine hydrochloride 200 MG Oral Tablet REZA ([facility]) Nystatin 731221 UNT/ML Oral Suspension REZA ([facility]) 24 HR Nicotine 0.875 MG/HR Transdermal Patch REZA ([facility]) Nicotine 2 MG Chewing Gum AT AMARILIS ([facility]) Naproxen sodium 220 MG Oral Tablet REZA ([facility]) Naproxen 500 MG Oral Tablet REZA ([facility]) Naproxen 250 MG Oral Tablet REZA ([facility]) cetirizine hydrochloride 10 MG Oral Tablet REZA ([facility]) Baclofen 10 MG Oral Tablet A THENA ([facility]) Amoxicillin 875 MG / Clavulanate 125 MG Oral Tablet REZA ([facility]) Amitriptyline Hydrochloride 25 MG Oral Tablet REZA ([facility]) Acyclovir 400 MG Oral Tablet REZA ([facility]) vitamin d3 25 mcg (1000 ut) tabs REZA ([facility]) topiramate 50 MG Oral Tablet REZA ([facility]) topiramate 25 MG Oral Tablet REZA ([facility]) tolterodine tartrate 2 MG Oral Tablet REZA ([facility]) pregabalin 75 MG Oral Capsule REZA ([facility]) pregabalin 100 MG Oral Capsule REZA ([facility]) Phenazopyridine hydrochloride 200 MG Oral Tablet REZA ([facility]) Nystatin [id number] UNT/ML Oral Suspension REZA ([facility]) 24 HR Nicotine 0.875 MG/HR Transdermal Patch REZA ([facility]) Nicotine 2 MG Chewing Gum AT AMARILIS ([facility]) Naproxen sodium 220 MG Oral Tablet REZA ([facility]) Naproxen 500 MG Oral Tablet REZA ([facility]) Naproxen 250 MG Oral Tablet REZA ([facility]) Lorazepam 0.5 MG Oral Tablet REZA ([facility]) Loratadine 10 MG Oral Tablet REZA ([facility]) Levothyroxine Sodium 0.025 MG Oral Tablet REZA ([facility]) Ketorolac Tromethamine 10 MG Oral Tablet REZA ([facility]) Hydroxyzine Hydrochloride 25 MG Oral Tablet REZA ([facility]) Fluconazole 150 MG Oral Tablet REZA ([facility]) Fluconazole 100 MG Oral Tablet REZA ([facility]) 24 HR venlafaxine 37.5 MG Extended Release Oral Capsule [Effexor] REZA ([facility]) duloxetine 60 MG Delayed Release Oral Capsule REZA ([facility]) duloxetine 30 MG Delayed Release Oral Capsule REZA ([facility]) Ciprofloxacin 500 MG Oral Tablet REZA ([facility]) cetirizine hydrochloride 10 MG Oral Tablet REZA ([facility]) Baclofen 10 MG Oral Tablet A THENA ([facility]) Amoxicillin 875 MG / Clavulanate 125 MG Oral Tablet REZA ([facility]) Amitriptyline Hydrochloride 25 MG Oral Tablet REZA ([facility]) Acyclovir 400 MG Oral Tablet REZA ([facility]) Potassium 99 MG Oral Tablet [facility] duloxetine 30 MG Delayed Release Oral Capsule REZA ([facility]) Ciprofloxacin 500 MG Oral Tablet REZA ([facility]) cetirizine hydrochloride 10 MG Oral Tablet REZA ([facility]) Baclofen 10 MG Oral Tablet A THENA ([facility]) vitamin d3 25 mcg (1000 ut) tabs REZA ([facility]) topiramate 50 MG Oral Tablet REZA ([facility]) topiramate 25 MG Oral Tablet REZA ([facility]) tolterodine tartrate 2 MG Oral Tablet REZA ([facility]) Sulfamethoxazole 800 MG / Trimethoprim 160 MG Oral Tablet REZA ([facility]) pregabalin 75 MG Oral Capsule REZA ([facility]) pregabalin 100 MG Oral Capsule REZA ([facility]) Phenazopyridine hydrochloride 200 MG Oral Tablet REZA ([facility]) Oxybutynin chloride 5 MG Oral Tablet REZA ([facility]) Nystatin [id number] UNT/ML Oral Suspension REAZ ([facility]) 24 HR Nicotine 0.875 MG/HR Transdermal Patch REZA ([facility]) Nicotine 2 MG Chewing Gum AT AMARILIS ([facility]) Naproxen sodium 220 MG Oral Tablet REZA ([facility]) Naproxen 500 MG Oral Tablet REZA ([facility]) Naproxen 250 MG Oral Tablet REZA ([facility]) Lorazepam 0.5 MG Oral Tablet REZA ([facility]) Loratadine 10 MG Oral Tablet REZA ([facility]) lidoc/m dry/[facility] SW[facility] SWALLOW 10 ML EVERY 4 HOURS NEEDED REZA ([facility]) Levothyroxine Sodium 0.025 MG Oral Tablet REZA ([facility]) Ketorolac Tromethamine 10 MG Oral Tablet REZA ([facility]) Hydroxyzine Hydrochloride 25 MG Oral Tablet REZA ([facility]) fluticasone propionate 50 mcg/actuation nasal spray,suspension REZA ([facility]) Fluconazole 100 MG Oral Tablet REZA ([facility]) 24 HR venlafaxine 37.5 MG Extended Release Oral Capsule [Effexor] REZA ([facility]) duloxetine 60 MG Delayed Release Oral Capsule REZA ([facility]) duloxetine 30 MG Delayed Release Oral Capsule REZA ([facility]) Ciprofloxacin 500 MG Oral Tablet REZA ([facility]) cetirizine hydrochloride 10 MG Oral Tablet REZA ([facility]) Baclofen 10 MG Oral Tablet A THENA ([facility]) Amoxicillin 875 MG / Clavulanate 125 MG Oral Tablet REZA ([facility]) Amitriptyline Hydrochloride 25 MG Oral Tablet REZA ([facility]) Acyclovir 400 MG Oral Tablet REZA ([facility]) vitamin d3 25 mcg (1000 ut) tabs REZA ([facility]) topiramate 50 MG Oral Tablet REZA ([facility]) topiramate 25 MG Oral Tablet REZA ([facility]) tolterodine tartrate 2 MG Oral Tablet REZA ([facility]) Sulfamethoxazole 800 MG / Trimethoprim 160 MG Oral Tablet REZA ([facility]) pregabalin 75 MG Oral Capsule REZA ([facility]) pregabalin 100 MG Oral Capsule REZA ([facility]) Phenazopyridine hydrochloride 200 MG Oral Tablet REZA ([facility]) Oxybutynin chloride 5 MG Oral Tablet REZA ([facility]) Nystatin [id number] UNT/ML Oral Suspension REZA ([facility]) 24 HR Nicotine 0.875 MG/HR Transdermal Patch REZA ([facility]) Nicotine 2 MG Chewing Gum AT AMARILIS ([facility]) Naproxen sodium 220 MG Oral Tablet REZA ([facility]) Naproxen 500 MG Oral Tablet REZA ([facility]) Naproxen 250 MG Oral Tablet REZA ([facility]) Lorazepam 0.5 MG Oral Tablet REZA ([facility]) Loratadine 10 MG Oral Tablet REZA ([facility]) lidoc/m dry/[facility] SWISH AND SWALLOW 10 ML EVERY 4 HOURS NEEDED REZA ([facility]) Levothyroxine Sodium 0.025 MG Oral Tablet REZA ([facility]) Ketorolac Tromethamine 10 MG Oral Tablet REZA ([facility]) Hydroxyzine Hydrochloride 25 MG Oral Tablet REZA ([facility]) fluticasone propionate 50 mcg/actuation nasal spray,suspension REZA ([facility]) Fluconazole 100 MG Oral Tablet REZA ([facility]) 24 HR venlafaxine 37.5 MG Extended Release Oral Capsule [Effexor] REZA ([facility]) vitamin d3 25 mcg (1000 ut) tabs REZA ([facility]) topiramate 50 MG Oral Tablet REZA ([facility]) topiramate 25 MG Oral Tablet REZA ([facility]) tolterodine tartrate 2 MG Oral Tablet REZA ([facility]) Sulfamethoxazole 800 MG / Trimethoprim 160 MG Oral Tablet REZA ([facility]) pregabalin 75 MG Oral Capsule REZA ([facility]) pregabalin 100 MG Oral Capsule REZA ([facility]) Nystatin [id number] UNT/ML Oral Suspension REZA ([facility]) 24 HR Nicotine 0.875 MG/HR Transdermal Patch REZA ([facility]) Nicotine 2 MG Chewing Gum AT AMARILIS ([facility]) Naproxen sodium 220 MG Oral Tablet REZA ([facility]) Naproxen 500 MG Oral Tablet REZA ([facility]) Naproxen 250 MG Oral Tablet REZA ([facility]) Lorazepam 0.5 MG Oral Tablet REZA ([facility]) Loratadine 10 MG Oral Tablet REZA ([facility]) Hydroxyzine Hydrochloride 25 MG Oral Tablet REZA ([facility]) Fluconazole 100 MG Oral Tablet REZA ([facility]) duloxetine 60 MG Delayed Release Oral Capsule REZA ([facility]) duloxetine 30 MG Delayed Release Oral Capsule REZA ([facility]) Ciprofloxacin 500 MG Oral Tablet REZA ([facility]) cetirizine hydrochloride 10 MG Oral Tablet REZA ([facility]) Baclofen 10 MG Oral Tablet A THENA ([facility]) Amoxicillin 875 MG / Clavulanate 125 MG Oral Tablet REZA ([facility]) Lorazepam 0.5 MG Oral Tablet REZA ([facility]) Loratadine 10 MG Oral Tablet REZA ([facility]) Levothyroxine Sodium 0.025 MG Oral Tablet REZA ([facility]) Ketorolac Tromethamine 10 MG Oral Tablet REZA ([facility]) Hydroxyzine Hydrochloride 25 MG Oral Tablet REZA ([facility]) Fluconazole 150 MG Oral Tablet REAZ ([facility]) Fluconazole 100 MG Oral Tablet REZA ([facility]) 24 HR venlafaxine 37.5 MG Extended Release Oral Capsule [Effexor] REZA ([facility]) duloxetine 60 MG Delayed Release Oral Capsule REZA ([facility]) duloxetine 30 MG Delayed Release Oral Capsule REZA ([facility]) Ciprofloxacin 500 MG Oral Tablet REZA ([facility])
== END 2021-05-22 02:03 | disposition left against medical advice (07) ==
LOC: M ED 01:54
DX: Z53.21 Procedure and treatment not carried out due to patient leaving prior to being seen by health care provider (principal)

== ENCOUNTER → 2021-09-10 | Outpatient (CLI) | payer OTHER | LOC: M WHC 09:47 | PROVIDERS: ATTEND Internal Medicine Hematology & Oncology | DX: Z13.820 Encounter for screening for osteoporosis (principal); M85.851 Other specified disorders of bone density and structure, right thigh; M85.852 Other specified disorders of bone density and structure, left thigh ==

== ENCOUNTER → 2021-12-16 | Outpatient (POV) | payer OTHER ==
[~2021-12-16] VITALS: Ht 160 cm; Wt 78.6 kg
[~2021-12-16] MED LIST changes: +ACET1TAB55 PO; +DIPH2.5T15 PO; +MULT-90 PO; +TRAZ-257 PO; +VENTAER INH
[2021-12-16 11:00] VITALS: BP 118/70
== END ==
LOC: M IRPOV 10:33
PROVIDERS: ATTEND Radiology Diagnostic Radiology
DX: Z45.2 Encounter for adjustment and management of vascular access device (principal); Z88.1 Allergy status to other antibiotic agents; Z88.8 Allergy status to other drugs, medicaments and biological substances

== ENCOUNTER → 2021-12-16 | Outpatient (CLI) | payer OTHER ==
[~2021-12-16] MED LIST changes: -ACET1TAB55 PO; -DIPH2.5T15 PO; -MULT-90 PO; -TRAZ-257 PO; -VENTAER INH
[2021-12-16 12:30] LABS: ESTRADIOL < 19.0 PG/ML; FOLLICLE STIMULATING HORMONE 69.9 mIU/mL
== END ==
LOC: M LAB 10:28
PROVIDERS: ATTEND Internal Medicine Hematology & Oncology
DX: Z51.81 Encounter for therapeutic drug level monitoring (principal); Z79.899 Other long term (current) drug therapy

== ENCOUNTER → 2022-03-20 | Outpatient (CLI) | payer OTHER ==
[~2022-03-20] MED LIST changes: +ACET1TAB55 PO; +DIPH2.5T15 PO; -GLUCTAB6 PO; +GLUCTAB7 PO; +METH5TA PO; +MULT-90 PO; +NYST-13 EXT; -NYST10CR EXT; +OXYC10TA12 PO; +PREG200C PO; +TRAZ-257 PO; +VENTAER INH
[2022-03-20 13:18] LABS: FOLATE 16.1 NG/ML (>5.4); VITAMIN B12 LEVEL 567 PG/ML (247-911)
[2022-03-24 11:25] LABS: TOTAL PROTEIN 7.6 GM/DL (6.4-8.2)
[2022-03-24 15:33] LABS: ALBUMIN 4.48 GM/DL (3.29-5.55); ALPHA-1-GLOBULIN % 4.2 % (2.9-4.9); ALPHA-1-GLOBULINS 0.32 GM/DL (0.17-0.41); ALPHA-2-GLOBULINS 1.01 GM/DL (0.42-0.99); ALPHA-2-GLOBULINS % 13.3 % (7.1-11.8); BETA-1-GLOBULINS 0.48 GM/DL (0.28-0.60); BETA-1-GLOBULINS % 6.3 % (4.7-7.2); BETA-2-GLOBULINS 0.35 GM/DL (0.19-0.55); BETA-2-GLOBULINS % 4.6 % (3.2-6.5); GAMMA GLOBULIN % 12.6 % (11.1-18.8); GAMMA GLOBULINS 0.96 GM/DL (0.65-1.58)
== END ==
LOC: M EKG 09:59
PROVIDERS: ATTEND Psychiatry & Neurology Neurology
DX: G62.9 Polyneuropathy, unspecified (principal)

== ENCOUNTER → 2022-04-21 | Outpatient (CLI) | payer OTHER ==
[~2022-04-21] VITALS: Ht 160 cm; Wt 85.7 kg
[~2022-04-21] MED LIST changes: +DULO30CA9 PO; +LYRI200C PO
[2022-04-21 09:29] VITALS: BP 138/76
== END ==
LOC: M PAL 09:05
PROVIDERS: ATTEND Nurse Practitioner Adult Health
DX: C50.912 Malignant neoplasm of unspecified site of left female breast (principal); G62.9 Polyneuropathy, unspecified

== ENCOUNTER 2022-06-22 07:36 | Emergency (ER) | payer MEDICARE, OTHER ==
[~2022-06-22] VITALS: Ht 160 cm; Wt 88.1 kg
[2022-06-22] MEDS ORDERED: ASPIRIN 81 MG CHEW TABLET PO ONE (07:50)
[2022-06-22] MEDS ORDERED: MORPHINE 2 MG/ML 1ML VIAL IV PRN (08:00)
[2022-06-22] MEDS ORDERED: ONDANSETRON 4MG 2ML VIAL IV ONE (08:05)
[2022-06-22 09:33] LABS: BASO % 0.2 % (0.0-1.0); EOS # 0.2 10^3/uL (0.0-0.5); HEMATOCRIT 44.8 % (36.0-47.0); HEMOGLOBIN 15.1 g/dl (12.0-15.5); LYMPH # 1.9 10^3/uL (1.5-5.0); LYMPH % 22.7 % (24.0-44.0); MEAN CORPUSCULAR HEMOGLOBIN 31.1 pg (27.0-33.0); MEAN CORPUSCULAR HGB CONC 33.7 g/dl (32.0-36.5); MEAN CORPUSCULAR VOLUME 92.4 fl (80.0-96.0); MONO # 0.1 10^3/uL (0.0-0.8); MONO % 1.3 % (2.0-8.0); NEUTROPHILS # 6.1 10^3/uL (1.5-8.5); NEUTROPHILS % 73.6 % (36.0-66.0); PLATELET COUNT, AUTOMATED 223 10^3/uL (150-450); RED BLOOD COUNT 4.85 10^6/uL (4.00-5.40); WHITE BLOOD COUNT 8.3 10^3/uL (4.0-10.0)
[2022-06-22] MEDS ORDERED: ISOVUE-370 76% 100ML VIAL As Ordered ONE (09:43)
[2022-06-22 10:05] LABS: CK-MB VALUE MASS < 1.0 NG/ML (<3.6); CPK CREATINE PHOSPHOKINASE 126 U/L (26-192); MB/CK RELATIVE INDEX 0.79 (< OR =4)
[2022-06-22 10:13] LABS: RSV AMPLIFICATION NEGATIVE (NEGATIVE)
[2022-06-22 11:20] LABS: CK-MB VALUE MASS < 1.0 NG/ML (<3.6); CPK CREATINE PHOSPHOKINASE 44 U/L (26-192); MB/CK RELATIVE INDEX 2.27 (< OR =4)
[2022-06-22 11:26] LABS: ALBUMIN 2.8 GM/DL (3.2-5.2); ALT/SGPT 30 U/L (12-78); BILIRUBIN,DIRECT < 0.1 MG/DL (0.0-0.2); BILIRUBIN,TOTAL 0.4 MG/DL (0.2-1.0); BLOOD UREA NITROGEN 8 MG/DL (7-18); CALCIUM LEVEL 8.7 MG/DL (8.5-10.1); CARBON DIOXIDE LEVEL 26 MEQ/L (21-32); CHLORIDE LEVEL 106 MEQ/L (98-107); CREATININE FOR GFR 0.51 MG/DL (0.55-1.30); FREE T4 0.83 NG/DL (0.76-1.46); GLOMERULAR FILTRATION RATE > 60.0 (>51); GLUCOSE, FASTING 79 MG/DL (70-100); LIPASE 84 U/L (73-393); NT-PRO BNP 18 PG/ML (<125); POTASSIUM SERUM 4.2 MEQ/L (3.5-5.1); SODIUM LEVEL 138 MEQ/L (136-145)
[2022-06-22 12:15] VITALS: BP 113/65
[2022-06-24] MEDS ORDERED: LYRI200C PO (08:46)
[2022-06-24] MEDS ORDERED: OXYC10TA12 PO (08:46)
[2022-06-24] MEDS ORDERED: METH5TA PO (08:46)
== END 2022-06-22 13:04 | disposition home or self-care (01) ==
LOC: EDBD 07:36 → M ED 07:36
DX: R07.9 Chest pain, unspecified (principal); F17.200 Nicotine dependence, unspecified, uncomplicated; Z88.2 Allergy status to sulfonamides
CPT/HCPCS: 71045; 71275; 80047; 80048; 80076; 82550; 82553; 83690; 83880; 84439; 84443; 84484; 85025; 87631; 93005; 93041; 94760; 96374; 99285; J2270; J2405; Q9967

== ENCOUNTER → 2022-08-18 | Outpatient (CLI) | payer MEDICARE ==
[~2022-08-18] VITALS: Ht 166.4 cm; Wt 89.1 kg
[~2022-08-18] MED LIST changes: +ALPR0.5T3 PO; +CYMB1CAP5 PO; +ONDA-84 PO; +PROC10TA5 PO
[2022-08-18 08:02] VITALS: BP 106/67
== END ==
LOC: M PAL 07:50
PROVIDERS: ATTEND Nurse Practitioner Adult Health
DX: C50.912 Malignant neoplasm of unspecified site of left female breast (principal); G62.9 Polyneuropathy, unspecified; G89.3 Neoplasm related pain (acute) (chronic); Z51.5 Encounter for palliative care; Z92.21 Personal history of antineoplastic chemotherapy; E03.9 Hypothyroidism, unspecified; F31.9 Bipolar disorder, unspecified; F41.9 Anxiety disorder, unspecified; G47.00 Insomnia, unspecified; R51.9 Headache, unspecified; Z90.12 Acquired absence of left breast and nipple; F17.200 Nicotine dependence, unspecified, uncomplicated; Z88.1 Allergy status to other antibiotic agents; Z88.2 Allergy status to sulfonamides; Z88.8 Allergy status to other drugs, medicaments and biological substances; Z79.891 Long term (current) use of opiate analgesic; Z79.899 Other long term (current) drug therapy

== ENCOUNTER → 2022-09-17 | Outpatient (CLI) | payer MEDICARE ==
[~2022-09-17] VITALS: Ht 160 cm; Wt 89.8 kg
[~2022-09-17] MED LIST changes: +LIDO15SO4 PO; -LIDO2SOL17 PO
[2022-09-17 08:05] VITALS: BP 107/77
== END ==
LOC: M PAL 07:56
PROVIDERS: ATTEND Nurse Practitioner Adult Health
DX: C50.812 Malignant neoplasm of overlapping sites of left female breast (principal); F17.210 Nicotine dependence, cigarettes, uncomplicated; F32.A Depression, unspecified; F41.9 Anxiety disorder, unspecified; G89.3 Neoplasm related pain (acute) (chronic); K59.00 Constipation, unspecified; Z79.51 Long term (current) use of inhaled steroids; Z79.891 Long term (current) use of opiate analgesic; Z79.899 Other long term (current) drug therapy; Z86.59 Personal history of other mental and behavioral disorders; Z88.1 Allergy status to other antibiotic agents; Z88.8 Allergy status to other drugs, medicaments and biological substances; Z90.12 Acquired absence of left breast and nipple; Z90.710 Acquired absence of both cervix and uterus

== ENCOUNTER → 2022-10-15 | Outpatient (CLI) | payer MEDICARE | LOC: M PAL 07:43 | PROVIDERS: ATTEND Nurse Practitioner Family | DX: C50.812 Malignant neoplasm of overlapping sites of left female breast (principal); F17.210 Nicotine dependence, cigarettes, uncomplicated; F32.A Depression, unspecified; F41.9 Anxiety disorder, unspecified; G89.3 Neoplasm related pain (acute) (chronic); K59.00 Constipation, unspecified; G47.00 Insomnia, unspecified; Z79.51 Long term (current) use of inhaled steroids; Z51.5 Encounter for palliative care; Z79.891 Long term (current) use of opiate analgesic; Z79.899 Other long term (current) drug therapy; Z86.59 Personal history of other mental and behavioral disorders; Z88.1 Allergy status to other antibiotic agents; Z88.8 Allergy status to other drugs, medicaments and biological substances; Z90.12 Acquired absence of left breast and nipple; Z90.710 Acquired absence of both cervix and uterus ==

== ENCOUNTER 2022-11-11 11:40 | Emergency (ER) | payer MEDICARE ==
[~2022-11-11] VITALS: Ht 160 cm; Wt 94.4 kg
[~2022-11-11 11:40] MED LIST changes: +LIDO15SO PO; -LIDO15SO4 PO
[2022-11-11] MEDS ORDERED: MORPHINE 4 MG/ML 1ML VIAL IV PRN (12:20)
[2022-11-11] MEDS ORDERED: GI COCKTAIL 50ML BTL(HYOSCYAMINE/MAALOX/LIDOCAINE VISCOUS)(1:3:1) PO ONE (12:20)
[2022-11-11] MEDS ORDERED: SUCRALFATE SUSP 1GM/10ML UD PO ONE (12:20)
[2022-11-11] MEDS ORDERED: ONDANSETRON 4MG 2ML VIAL IV ONE (12:20)
[2022-11-11] MEDS: SODIUM CHLORIDE 0.9% INJ 10 ML SYR IV SCH ×2 (13:10→15:37)
[2022-11-11 13:16] LABS: BASO % 0.6 % (0.0-1.0); EOS # 0.1 10^3/uL (0.0-0.5); EOS % 1.6 % (0.0-3.0); HEMATOCRIT 38.5 % (36.0-47.0); HEMOGLOBIN 13.1 g/dl (12.0-15.5); LYMPH # 1.8 10^3/uL (1.5-5.0); LYMPH % 29.8 % (24.0-44.0); MEAN CORPUSCULAR HEMOGLOBIN 33.3 pg (27.0-33.0); MONO # 0.6 10^3/uL (0.0-0.8); MONO % 9.9 % (2.0-8.0); NEUTROPHILS # 3.6 10^3/uL (1.5-8.5); NEUTROPHILS % 57.6 % (36.0-66.0); PLATELET COUNT, AUTOMATED 242 10^3/uL (150-450); RED BLOOD COUNT 3.93 10^6/uL (4.00-5.40); WHITE BLOOD COUNT 6.2 10^3/uL (4.0-10.0)
[2022-11-11 13:27] LABS: CK-MB VALUE MASS < 1.0 NG/ML (<3.6)
[2022-11-11 13:28] LABS: LIPASE 27 U/L (12-53)
[2022-11-11 13:31] LABS: ALBUMIN 2.8 G/DL (3.2-5.2); ALKALINE PHOSPHATASE 90 U/L (46-116); ALT/SGPT < 9 U/L (7.0-40); AST/SGOT 17 U/L (<34); BILIRUBIN,DIRECT < 0.1 MG/DL (<0.4); BILIRUBIN,TOTAL < 0.2 MG/DL (0.3-1.2); BLOOD UREA NITROGEN 8 MG/DL (9-23); CALCIUM LEVEL 8.6 MG/DL (8.5-10.1); CARBON DIOXIDE LEVEL 31 MMOL/L (20-31); CHLORIDE LEVEL 109 MMOL/L (98-107); CPK CREATINE PHOSPHOKINASE 55 U/L (34-145); GLOMERULAR FILTRATION RATE > 60.0 (>51); GLUCOSE, FASTING 69 MG/DL (60-100); MB/CK RELATIVE INDEX 1.81 (< OR =4); POTASSIUM SERUM 3.9 MMOL/L (3.5-5.1); SODIUM LEVEL 141 MMOL/L (136-145); THYROID STIMULATING HORMONE 10.209 uIU/ML (0.55-4.78); TOTAL PROTEIN 5.8 G/DL (5.7-8.2)
[2022-11-11 13:33] LABS: FREE T4 0.98 NG/DL (0.89-1.76)
[2022-11-11 13:42] LABS: RSV AMPLIFICATION NEGATIVE (NEGATIVE)
[2022-11-11] MEDS ORDERED: ISOVUE-370 76% 100ML VIAL As Ordered ONE ×2 (13:44→14:11)
[2022-11-11] MEDS ORDERED: MORPHINE 2 MG/ML 1ML VIAL IV ONE (15:10)
[2022-11-11 16:11] VITALS: BP 109/62
[2022-11-12] MEDS ORDERED: LYRI200C PO (10:08)
[2022-11-12] MEDS ORDERED: METH5TA PO (10:08)
[2022-11-12] MEDS ORDERED: OXYC10TA12 PO (10:08)
[2022-11-17] MEDS ORDERED: TRAZ-257 PO (10:55)
== END 2022-11-11 16:16 | disposition home or self-care (01) ==
LOC: M ED 11:40
DX: R07.9 Chest pain, unspecified (principal); R00.0 Tachycardia, unspecified; E78.5 Hyperlipidemia, unspecified; F17.200 Nicotine dependence, unspecified, uncomplicated; Z86.79 Personal history of other diseases of the circulatory system; Z86.73 Personal history of transient ischemic attack (TIA), and cerebral infarction without residual deficits; Z79.52 Long term (current) use of systemic steroids; Z79.810 Long term (current) use of selective estrogen receptor modulators (SERMs); Z79.83 Long term (current) use of bisphosphonates; Z79.899 Other long term (current) drug therapy
CPT/HCPCS: 71045; 71275; 74177; 80048; 80076; 82550; 82553; 83690; 84439; 84443; 84484; 85025; 87631; 93005; 93041; 94760; 96374; 96375; 96376; 99285; J2405; Q9967

== ENCOUNTER 2022-12-27 11:43 | Emergency (ER) | payer MEDICARE ==
[~2022-12-27] VITALS: Ht 160 cm; Wt 97.3 kg
[~2022-12-27 11:43] MED LIST changes: +SODIUM CHLORIDE 0.9% INJ 10 ML SYR IV SCH
[2022-12-27] MEDS ORDERED: MORPHINE 4 MG/ML 1ML VIAL IV ONE ×2 (12:30→15:15)
[2022-12-27] MEDS ORDERED: cefTRIAXone SOD 1 GM in D5W MINI-BAG PLUS 50 ML IV ONE ×2 (12:45→15:15)
[2022-12-27 13:17] LABS: BASO % 0.4 % (0.0-1.0); EOS # 0.1 10^3/uL (0.0-0.5); EOS % 1.8 % (0.0-3.0); HEMATOCRIT 40.7 % (36.0-47.0); HEMOGLOBIN 13.8 g/dl (12.0-15.5); LYMPH # 2.2 10^3/uL (1.5-5.0); LYMPH % 31.5 % (24.0-44.0); MEAN CORPUSCULAR HEMOGLOBIN 32.9 pg (27.0-33.0); MEAN CORPUSCULAR HGB CONC 33.9 g/dl (32.0-36.5); MEAN CORPUSCULAR VOLUME 96.9 fl (80.0-96.0); MONO # 0.7 10^3/uL (0.0-0.8); MONO % 9.8 % (2.0-8.0); NEUTROPHILS # 3.8 10^3/uL (1.5-8.5); NEUTROPHILS % 55.8 % (36.0-66.0); PLATELET COUNT, AUTOMATED 224 10^3/uL (150-450); WHITE BLOOD COUNT 6.8 10^3/uL (4.0-10.0)
[2022-12-27 13:27] LABS: ERYTHROCYTE SEDIMENTATION RATE 43 mm/hr (0-30)
[2022-12-27 13:35] LABS: INR 0.84; PROTHROMBIN TIME 11.7 SECONDS (12.5-14.5)
[2022-12-27 13:36] LABS: PARTIAL THROMBOPLASTIN TIME 26.4 SECONDS (24.8-34.2)
[2022-12-27 13:44] LABS: LIPASE 31 U/L (12-53)
[2022-12-27 13:46] LABS: CPK CREATINE PHOSPHOKINASE 45 U/L (34-145)
[2022-12-27 13:50] LABS: ALBUMIN 3.1 G/DL (3.2-5.2); ALKALINE PHOSPHATASE 116 U/L (46-116); ALT/SGPT 48 U/L (7.0-40); AST/SGOT 35 U/L (<34); BILIRUBIN,DIRECT < 0.1 MG/DL (<0.4); BILIRUBIN,TOTAL 0.2 MG/DL (0.3-1.2); CK-MB VALUE MASS < 1.0 NG/ML (<3.6); FREE T4 0.91 NG/DL (0.89-1.76); MB/CK RELATIVE INDEX 2.22 (< OR =4); THYROID STIMULATING HORMONE 12.618 uIU/ML (0.55-4.78); TOTAL PROTEIN 6.3 G/DL (5.7-8.2)
[2022-12-27 14:46] VITALS: BP 127/85
[2022-12-27 15:28] LABS: RSV AMPLIFICATION NEGATIVE (NEGATIVE)
[2022-12-27] MEDS ORDERED: CEFD300C41 PO (15:45)
[2022-12-29] MEDS ORDERED: TRAZ-257 PO (06:57)
== END 2022-12-27 15:41 | disposition home or self-care (01) ==
LOC: EDBD 11:43 → M ED 11:43
DX: R07.9 Chest pain, unspecified (principal); N39.0 Urinary tract infection, site not specified; E78.5 Hyperlipidemia, unspecified; F41.9 Anxiety disorder, unspecified; F33.1 Major depressive disorder, recurrent, moderate; Z85.3 Personal history of malignant neoplasm of breast; Z90.12 Acquired absence of left breast and nipple; Z92.21 Personal history of antineoplastic chemotherapy; Z86.73 Personal history of transient ischemic attack (TIA), and cerebral infarction without residual deficits; Z88.2 Allergy status to sulfonamides; Z88.8 Allergy status to other drugs, medicaments and biological substances; Z79.2 Long term (current) use of antibiotics; Z79.810 Long term (current) use of selective estrogen receptor modulators (SERMs); Z79.891 Long term (current) use of opiate analgesic; Z79.899 Other long term (current) drug therapy

== ENCOUNTER → 2023-01-18 | Outpatient (REF) | payer MEDICARE ==
[~2023-01-18] MED LIST changes: +CEFD300C41 PO; -SODIUM CHLORIDE 0.9% INJ 10 ML SYR IV SCH
== END ==
LOC: M LAB REF 17:09
PROVIDERS: ATTEND Pediatrics
DX: R79.89 Other specified abnormal findings of blood chemistry (principal); Z79.899 Other long term (current) drug therapy

== ENCOUNTER → 2023-03-30 | Outpatient (CLI) | payer MEDICARE, MEDICAID ==
[~2023-03-30] MED LIST changes: -GABA-283 PO; +GABA-284 PO
== END ==
LOC: M CARPUL 12:57
PROVIDERS: ATTEND Internal Medicine Hematology & Oncology
DX: Z51.81 Encounter for therapeutic drug level monitoring (principal); Z79.899 Other long term (current) drug therapy; Z53.9 Procedure and treatment not carried out, unspecified reason

== ENCOUNTER → 2023-08-11 | Outpatient (REF) | payer MEDICARE, MEDICAID ==
[~2023-08-11] MED LIST changes: +CEFD1CAP9 PO; -CEFD300C41 PO; -EFFE37.5 PO; +EFFE37.52 PO; -OXYB5TAB10 PO; +OXYB5TAB11 PO; -PREG100C PO; +PREG100C2 PO; -PREG200C PO; +PREG200C2 PO
[2023-08-11 19:41] LABS: FREE T4 0.92 NG/DL (0.89-1.76)
[2023-08-11 19:42] LABS: THYROID STIMULATING HORMONE 7.369 uIU/ML (0.55-4.78)
[2023-08-11 19:44] LABS: FOLLICLE STIMULATING HORMONE 97.6 mIU/ML
[2023-08-11 19:45] LABS: LUTEINIZING HORMONE 28.2 mIU/ML
== END ==
LOC: M LAB REF 16:56
PROVIDERS: ATTEND Pediatrics
DX: R61 Generalized hyperhidrosis (principal)

== ENCOUNTER → 2023-09-13 | Outpatient (REF) | payer MEDICARE, MEDICAID ==
[2023-09-13 13:11] LABS: THYROID STIMULATING HORMONE 8.436 uIU/ML (0.55-4.78)
== END ==
LOC: M LAB REF 12:05
PROVIDERS: ATTEND Pediatrics
DX: R79.89 Other specified abnormal findings of blood chemistry (principal); Z79.899 Other long term (current) drug therapy

== ENCOUNTER → 2023-11-02 | Outpatient (CLI) | payer MEDICARE, MEDICAID ==
[~2023-11-02] MED LIST changes: -LIDO15SO PO; +LIDO15SO8 PO; -OXYB5TAB11 PO; +OXYB5TAB14 PO
== END ==
LOC: M RAD 11:06
PROVIDERS: ATTEND Pediatrics
DX: M79.642 Pain in left hand (principal); M19.041 Primary osteoarthritis, right hand; M19.042 Primary osteoarthritis, left hand

== ENCOUNTER → 2023-12-14 | Outpatient (REF) | payer MEDICARE, MEDICAID ==
[~2023-12-14] MED LIST changes: +DIPH1TAB81 PO; -DIPH2.5T15 PO
[2023-12-14 19:40] LABS: RHEUMATOID FACTOR QUANT 9.3 IU/ML (<14)
[2023-12-14 19:42] LABS: THYROID STIMULATING HORMONE 4.389 uIU/ML (0.55-4.78)
== END ==
LOC: M LAB REF 17:12
PROVIDERS: ATTEND Pediatrics
DX: M79.641 Pain in right hand (principal); M79.642 Pain in left hand; E03.9 Hypothyroidism, unspecified; G62.9 Polyneuropathy, unspecified; R79.89 Other specified abnormal findings of blood chemistry

== ENCOUNTER → 2024-03-07 | Outpatient (REF) | payer MEDICARE, MEDICAID | LOC: M LAB REF 13:29 | PROVIDERS: ATTEND Pediatrics | DX: E03.9 Hypothyroidism, unspecified (principal) ==

== ENCOUNTER 2024-03-09 16:56 | Emergency (ER) | payer MEDICARE, MEDICAID ==
[~2024-03-09] VITALS: Ht 160 cm; Wt 87.9 kg
[2024-03-09 16:57] VITALS: TEMP 97.9
[2024-03-09 18:04] LABS: BASO % 0.5 % (0.0-1.0); EOS # 0.1 10^3/uL (0.0-0.5); EOS % 1.7 % (0.0-3.0); HEMATOCRIT 44.2 % (36.0-47.0); HEMOGLOBIN 14.9 g/dl (12.0-15.5); LYMPH % 29.9 % (24.0-44.0); MEAN CORPUSCULAR HEMOGLOBIN 32.7 pg (27.0-33.0); MEAN CORPUSCULAR HGB CONC 33.7 g/dl (32.0-36.5); MEAN CORPUSCULAR VOLUME 96.9 fl (80.0-96.0); MONO # 0.5 10^3/uL (0.0-0.8); NEUTROPHILS % 59.6 % (36.0-66.0); PLATELET COUNT, AUTOMATED 199 10^3/uL (150-450); RED BLOOD COUNT 4.56 10^6/uL (4.00-5.40); WHITE BLOOD COUNT 6.6 10^3/uL (4.0-10.0)
[2024-03-09 18:26] VITALS: O2SAT 96
[2024-03-09 18:30] VITALS: BP 126/75
[2024-03-09 18:31] LABS: CK-MB VALUE MASS 1.4 NG/ML (<3.6)
[2024-03-09 18:31] LABS: BLOOD UREA NITROGEN 11 MG/DL (9-23); CALCIUM LEVEL 8.8 MG/DL (8.5-10.1); CARBON DIOXIDE LEVEL 27 MMOL/L (20-31); CHLORIDE LEVEL 109 MMOL/L (98-107); CREATININE FOR GFR 0.63 MG/DL (0.55-1.30); GLOMERULAR FILTRATION RATE > 60.0 (>51); GLUCOSE, FASTING 103 MG/DL (60-100); POTASSIUM SERUM 3.9 MMOL/L (3.5-5.1); SODIUM LEVEL 139 MMOL/L (136-145)
[2024-03-09 18:32] LABS: CPK CREATINE PHOSPHOKINASE 87 U/L (34-145); MB/CK RELATIVE INDEX 1.14 (< OR =4)
[2024-03-09 18:32] LABS: CPK CREATINE PHOSPHOKINASE 92 U/L (34-145); MB/CK RELATIVE INDEX 1.52 (< OR =4)
== END 2024-03-09 18:38 | disposition left against medical advice (07) ==
LOC: M ED 16:56
DX: Z53.21 Procedure and treatment not carried out due to patient leaving prior to being seen by health care provider (principal)

== ENCOUNTER → 2024-09-15 | Outpatient (REF) | payer MEDICARE, MEDICAID ==
[~2024-09-15] MED LIST changes: +NYST1POW3 TOP; -NYST1POW9 TOP
[2024-09-15 15:56] LABS: FOLLICLE STIMULATING HORMONE 92.2 mIU/ML; THYROID STIMULATING HORMONE 7.184 uIU/ML (0.55-4.78)
[2024-09-15 15:57] LABS: LUTEINIZING HORMONE 34.5 mIU/ML
[2024-09-15 15:58] LABS: CHOLESTEROL RISK RATIO 6.05 (<5); HDL CHOLESTEROL 51.9 MG/DL (>40); LDL CHOLESTEROL 233.3 MG/DL (<100); NON-HDL-C 262.1 MG/DL
== END ==
LOC: M LAB REF 12:42
PROVIDERS: ATTEND Pediatrics
DX: E03.9 Hypothyroidism, unspecified (principal); E78.5 Hyperlipidemia, unspecified; N95.1 Menopausal and female climacteric states

== ENCOUNTER → 2024-11-02 | Outpatient (REF) | payer MEDICARE, MEDICAID ==
[~2024-11-02] MED LIST changes: +LEVO25TA5 PO; +LEVO50TA5 PO; +METH-1175 PO; +OXYC-517 PO; +XARE20TA PO
[2024-11-02 18:46] LABS: BASO % 0.6 % (0.0-1.0); EOS # 0.1 10^3/uL (0.0-0.5); EOS % 0.7 % (0.0-3.0); HEMATOCRIT 45.6 % (36.0-47.0); HEMOGLOBIN 15.5 g/dl (12.0-15.5); LYMPH # 1.6 10^3/uL (1.5-5.0); LYMPH % 22.3 % (24.0-44.0); MEAN CORPUSCULAR HEMOGLOBIN 32.4 pg (27.0-33.0); MEAN CORPUSCULAR VOLUME 95.2 fl (80.0-96.0); MONO # 0.6 10^3/uL (0.0-0.8); NEUTROPHILS # 4.8 10^3/uL (1.5-8.5); NEUTROPHILS % 68.1 % (36.0-66.0); PLATELET COUNT, AUTOMATED 275 10^3/uL (150-450); RED BLOOD COUNT 4.79 10^6/uL (4.00-5.40)
[2024-11-02 19:18] LABS: BLOOD UREA NITROGEN < 5 MG/DL (9-23); CALCIUM LEVEL 9.5 MG/DL (8.5-10.1); CARBON DIOXIDE LEVEL 28 MMOL/L (20-31); CHLORIDE LEVEL 105 MMOL/L (98-107); CREATININE FOR GFR 0.53 MG/DL (0.55-1.30); GLOMERULAR FILTRATION RATE > 60.0 (>51); GLUCOSE, FASTING 84 MG/DL (60-100); POTASSIUM SERUM 4.5 MMOL/L (3.5-5.1); SODIUM LEVEL 140 MMOL/L (136-145)
== END ==
LOC: M LAB REF 17:25
PROVIDERS: ATTEND Physician Assistant
DX: Z01.818 Encounter for other preprocedural examination (principal)

== ENCOUNTER → 2024-11-13 | Outpatient (REF) | payer MEDICARE, MEDICAID | LOC: M LAB REF 14:40 | PROVIDERS: ATTEND Physician Assistant Medical | DX: R05.9 Cough, unspecified (principal) ==

== ENCOUNTER → 2024-11-29 | Outpatient (CLI) | payer MEDICARE, MEDICAID | LOC: M RAD 07:31 | PROVIDERS: ATTEND Neurological Surgery | DX: R29.2 Abnormal reflex (principal) ==

== ENCOUNTER 2024-12-13 07:06 | Day surgery (SDC) | payer MEDICARE, MEDICAID ==
[~2024-12-13] VITALS: Ht 160 cm; Wt 80.7 kg
[~2024-12-13 07:06] MED LIST changes: +ACETAMINOPHEN 1000MG/100ML IV BAG As Ordered ONE; +GLYCOPYRROLATE INJ 0.2 MG/ML 2 ML VIAL As Ordered ONE; +KETOROLAC 30 MG/ML 1ML VIAL As Ordered ONE; +LIDOCAINE 2% 100MG/5ML SDV (FOR ANES.) As Ordered ONE; +MIDAZOLAM INJ 2MG/2ML VIAL As Ordered ONE; -NYST-13 EXT; +NYST0.1C EXT; +ONDANSETRON 4MG 2ML VIAL As Ordered ONE; +fentaNYL 100 MCG/2 ML INJECTION As Ordered ONE; +propofoL 200 MG/20 ML VIAL As Ordered ONE
[2024-12-13] MEDS ORDERED: LR 1,000 ML IV SCH (07:40)
[2024-12-13] MEDS ORDERED: KETAMINE HCL 200MG/20ML VIAL As Ordered ONE (08:20)
[2024-12-13] MEDS: ceFAZolin SOD 2 GM IV ONCE IV ONE (09:13)
[2024-12-13] MEDS: LIDOCAINE 1% MDV 20ML VIAL As Ordered ONE (09:19)
[2024-12-13 09:59] VITALS: BP 138/80; TEMP 97.3; O2SAT 99
== END 2024-12-13 10:13 | disposition home or self-care (01) ==
LOC: M SDC 07:06
PROVIDERS: ATTEND Podiatrist Foot & Ankle Surgery
DX: M89.8X7 Other specified disorders of bone, ankle and foot (principal); E78.5 Hyperlipidemia, unspecified; E03.9 Hypothyroidism, unspecified; G62.9 Polyneuropathy, unspecified; F41.9 Anxiety disorder, unspecified; F32.A Depression, unspecified; J44.9 Chronic obstructive pulmonary disease, unspecified; Z86.73 Personal history of transient ischemic attack (TIA), and cerebral infarction without residual deficits; Z92.3 Personal history of irradiation; Z92.21 Personal history of antineoplastic chemotherapy; Z79.51 Long term (current) use of inhaled steroids; F17.210 Nicotine dependence, cigarettes, uncomplicated; Z88.1 Allergy status to other antibiotic agents; Z88.2 Allergy status to sulfonamides; Z86.711 Personal history of pulmonary embolism; Z79.891 Long term (current) use of opiate analgesic
CPT/HCPCS: 28124; J0131; J0665; J0690; J1100; J1596; J1885; J2250; J2405; J3010

== ENCOUNTER → 2025-04-25 | Outpatient (CLI) | payer MEDICARE, MEDICAID ==
[~2025-04-25] MED LIST changes: -ACETAMINOPHEN 1000MG/100ML IV BAG As Ordered ONE; +ACYC-438 PO; -ACYC1TAB PO; -GLYCOPYRROLATE INJ 0.2 MG/ML 2 ML VIAL As Ordered ONE; -KETOROLAC 30 MG/ML 1ML VIAL As Ordered ONE; -LIDOCAINE 2% 100MG/5ML SDV (FOR ANES.) As Ordered ONE; -MIDAZOLAM INJ 2MG/2ML VIAL As Ordered ONE; -ONDANSETRON 4MG 2ML VIAL As Ordered ONE; -fentaNYL 100 MCG/2 ML INJECTION As Ordered ONE; -propofoL 200 MG/20 ML VIAL As Ordered ONE
== END ==
LOC: M LAB 11:40
PROVIDERS: ATTEND Pediatrics
DX: E03.9 Hypothyroidism, unspecified (principal)

== ENCOUNTER 2025-05-10 12:44 | Emergency (ER) | payer MEDICARE, MEDICAID ==
[~2025-05-10] VITALS: Ht 160 cm; Wt 71.0 kg
[2025-05-10 12:50] VITALS: BP 142/86; TEMP 99.1; O2SAT 99
[2025-05-10] MEDS: ASPIRIN 81 MG CHEWABLE TABLET PO ONE (13:55)
[2025-05-10] MEDS: NITROGLYCERIN 0.4 MG SUBL TABLET SL PRN (13:56)
[2025-05-10 14:04] LABS: BASO # 0.0 10^3/uL (0.0-0.2); BASO % 0.3 % (0.0-1.0); EOS # 0.1 10^3/uL (0.0-0.5); EOS % 0.8 % (0.0-3.0); LYMPH # 1.9 10^3/uL (1.5-5.0); LYMPH % 25.1 % (24.0-44.0); MONO # 0.6 10^3/uL (0.0-0.8); MONO % 8.1 % (2.0-8.0); NEUTROPHILS # 4.9 10^3/uL (1.5-8.5); NEUTROPHILS % 65.4 % (36.0-66.0)
[2025-05-10 14:05] LABS: PLATELET COUNT, AUTOMATED 204 10^3/uL (150-450)
[2025-05-10 14:10] VITALS: BP 115/70
[2025-05-10 15:07] LABS: CK-MB VALUE MASS 7.1 NG/ML (<3.6)
[2025-05-10 15:12] LABS: ALT/SGPT 16 U/L (7.0-40); AST/SGOT 28 U/L (<34); CALCIUM LEVEL 8.4 MG/DL (8.5-10.1); CARBON DIOXIDE LEVEL 25 MMOL/L (20-31); CHLORIDE LEVEL 108 MMOL/L (98-107); CPK CREATINE PHOSPHOKINASE 359 U/L (34-145); CREATININE FOR GFR 0.54 MG/DL (0.55-1.30); GLOMERULAR FILTRATION RATE > 90.0 (>51); MB/CK RELATIVE INDEX 1.97 (< OR =4); POTASSIUM SERUM 3.4 MMOL/L (3.5-5.1); SODIUM LEVEL 139 MMOL/L (136-145)
== END 2025-05-10 15:01 | disposition left against medical advice (07) ==
LOC: M ED 12:44
DX: R07.9 Chest pain, unspecified (principal); R00.0 Tachycardia, unspecified; E78.5 Hyperlipidemia, unspecified; C50.919 Malignant neoplasm of unspecified site of unspecified female breast; F17.200 Nicotine dependence, unspecified, uncomplicated; Z86.79 Personal history of other diseases of the circulatory system; Z86.73 Personal history of transient ischemic attack (TIA), and cerebral infarction without residual deficits; Z88.2 Allergy status to sulfonamides; Z88.8 Allergy status to other drugs, medicaments and biological substances; Z79.52 Long term (current) use of systemic steroids; Z79.899 Other long term (current) drug therapy; Z53.9 Procedure and treatment not carried out, unspecified reason